=== PATIENT | male | born 1955 | race Caucasian/White ===

== ENCOUNTER 2022-06-24 10:26 | Emergency (ER) | payer MEDICARE, MEDICAID, SELFPAY ==
[2022-06-24 10:32] VITALS: BP 169/95; PULSE 104; RESP 18; BMI 23.3
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
[2022-06-24] MEDS: risperiDONE 1 MG TABLET PO ×2 (11:24→12:18)
[2022-06-24] MEDS: hydrOXYzine HCL 50 MG TABLET PO (11:25)
== END 2022-06-24 15:07 | disposition home or self-care (01) ==
PROVIDERS: Emergency Provider Emergency Medicine; PCP Internal Medicine
DX: S09.90XA Unspecified injury of head, initial encounter (principal); R51.9 Headache, unspecified; W01.0XXA Fall on same level from slipping, tripping and stumbling without subsequent striking against object, initial encounter; Y93.9 Activity, unspecified; Y92.9 Unspecified place or not applicable; Y99.9 Unspecified external cause status; Z79.899 Other long term (current) drug therapy
CPT/HCPCS: 99282; 99283

== ENCOUNTER 2022-10-17 16:16 | Emergency (ER) | payer MEDICARE, MEDICAID, SELFPAY ==
[2022-10-17 16:22] VITALS: PULSE 136; PULSE 98; RESP 16; O2SAT 98; BMI 22.0
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
--- NOTE | 2022-10-17 16:32 | PC.NURSE ---
pt unable to tolerate blood pressure cuff or temperature probe at this time.
== END 2022-10-17 16:53 | disposition home or self-care (01) ==
LOC: HO.ED 16:40
PROVIDERS: Emergency Provider Emergency Medicine
DX: Z04.1 Encounter for examination and observation following transport accident (principal)
CPT/HCPCS: 99282

== ENCOUNTER 2023-02-26 12:00 | Inpatient (IN) | payer MEDICARE, MEDICAID, SELFPAY ==
--- NOTE | ~2023-02-26 | CT_ITS ---
EXAMINATION: CT HEAD WITHOUT CONTRAST CT CERVICAL SPINE WITHOUT CONTRAST CLINICAL INFORMATION: Fall with headache and neck pain, weakness COMPARISON: None. TECHNIQUE: Contiguous axial imaging was performed from the skull base to vertex without intravenous administration of contrast. In addition, helical noncontrast CT imaging was acquired through the cervical spine and source images were reviewed along with axial reconstructions and sagittal and coronal MPRs. All CT exams at this location are performed using dose optimization techniques as appropriate to a performed exam including at least one of the following: * Automated exposure control * Adjustment of the mA and/or kV according to patient size (this includes techniques or standardized protocols for targeted exams where dose is matched to indication / reason for exam; i/e/ extremities or head) * Use of iterative reconstructive technique DLP: 1582 mGy-cm FINDINGS: HEAD: Motion artifact is present No intracranial mass, hemorrhage, or midline shift is visualized. Periventricular and subcortical white matter changes seen consistent chronic microvascular ischemic disease. Generalized atrophy is seen. Ventricles are prominent in size due to underlying atrophy. No extra-axial collections are identified. There is opacification of the right maxillary sinus CERVICAL SPINE: There is no evidence of acute cervical spine fracture. Vertebral body height and alignment is well maintained. No pre- or paravertebral soft tissue abnormality is identified. There is reversal of the normal cervical lordosis. Extensive bridging anterior osteophyte formation is seen extending from C3 through T1. Posterior facet joint arthropathy is seen right greater than left from C2 through C4. Limited assessment of the lung apices is unremarkable. CT/CT cervical spine wo IV con IMPRESSION: 1. No acute intracranial pathology. Chronic microvascular ischemic changes and atrophy 2. No CT evidence of acute cervical spine fracture or traumatic subluxation. Extensive anterior bridging osteophyte formation causing reversal the normal cervical lordosis. Posterior facet joint arthropathy, right greater than left
--- NOTE | ~2023-02-26 | XR_ITS ---
EXAMINATION: XR HIP, LEFT CLINICAL INFORMATION: Left hip fracture COMPARISON: CT abdomen pelvis earlier the same day TECHNIQUE: Two views of the left hip. FINDINGS: Again seen is a subcapital fracture involving the left femur with superior subluxation of the distal fracture fragment along with varus angulation. No other fractures are seen. XR/XR hip LT w PEL1V IMPRESSION: Subcapital left femoral fracture as described above.
--- NOTE | ~2023-02-26 | XR_ITS ---
EXAMINATION: XR PELVIS CLINICAL INFORMATION: Status post left hip arthroplasty COMPARISON: X-ray 03/08/2023 TECHNIQUE: AP view of the pelvis. FINDINGS: Left hip arthroplasty in usual position and alignment. Skin alessandro present. Air in the soft tissue/joint. No acute periprosthetic fracture. Normal right hip joint articulation. XR/XR pelvis 1-2V IMPRESSION: Postsurgical changes status post left hip arthroplasty.
--- NOTE | ~2023-02-26 | XR_ITS ---
EXAMINATION: LEFT FOOT AND LEFT ANKLE CLINICAL INFORMATION: Fall. Question ankle fracture. COMPARISON: None. TECHNIQUE: 4 view left foot and two-view left ankle FINDINGS: Left foot: There is osteopenia visualized bones. No acute fracture or dislocation is evident. There is a 1 mm bony density adjacent to the medial cuneiform without associated soft tissue swelling likely representing cysts sequela of previous injury. There is prominent spurring seen about the navicular cuneiform joint medially. Left ankle: There is no evidence of acute fracture or dislocation of the left ankle. Left ankle mortise appears intact. There is soft tissue swelling seen about the medial aspect of the ankle and foot. XR/XR ankle LT min 3V IMPRESSION: No evidence of acute fracture or dislocation of the left foot or ankle. Soft tissue swelling with degenerative change as described.
--- NOTE | ~2023-02-26 | XR_ITS ---
EXAMINATION: LEFT FOOT AND LEFT ANKLE CLINICAL INFORMATION: Fall. Question ankle fracture. COMPARISON: None. TECHNIQUE: 4 view left foot and two-view left ankle FINDINGS: Left foot: There is osteopenia visualized bones. No acute fracture or dislocation is evident. There is a 1 mm bony density adjacent to the medial cuneiform without associated soft tissue swelling likely representing cysts sequela of previous injury. There is prominent spurring seen about the navicular cuneiform joint medially. Left ankle: There is no evidence of acute fracture or dislocation of the left ankle. Left ankle mortise appears intact. There is soft tissue swelling seen about the medial aspect of the ankle and foot. XR/XR foot LT 2V IMPRESSION: No evidence of acute fracture or dislocation of the left foot or ankle. Soft tissue swelling with degenerative change as described.
--- NOTE | ~2023-02-26 | XR_ITS ---
EXAMINATION: XR CHEST CLINICAL INFORMATION: Tachycardia. COMPARISON: Chest radiograph dated 10/14/2014. TECHNIQUE: Frontal view of the chest was obtained. FINDINGS: Low lung volumes limit evaluation. No significant abnormality is noted involving the heart, lungs, mediastinum, bony thorax or soft tissues. XR/XR chest 1V IMPRESSION: No acute cardiopulmonary process.
--- NOTE | ~2023-02-26 | CT_ITS ---
EXAMINATION: CT PELVIS WITHOUT CONTRAST CLINICAL INFORMATION: Fall. Not standing. Nonverbal COMPARISON: None available. TECHNIQUE: Helical scanning was performed with submillimeter collimation through the pelvis. Soft tissue and bony algorithms evaluated. Sagittal and coronal multiplanar 2-D reconstructions were obtained. This CT examination was performed using dose optimization techniques as appropriate, variously including the following: *Automated exposure control *Adjustment of mA and/or kV according to patient size (this includes techniques or standardized protocols for targeted exams where dose is matched to indication/reason for exam; i.e. extremities or head) *Use of iterative reconstruction technique DLP: 317 mGy-cm FINDINGS: PELVIS: Bladder is decompressed. No colonic wall thickening or pericolonic inflammatory change. No significant free fluid or free air. No bulky adenopathy OSSEOUS STRUCTURES: Superiorly impacted apex anterior angulation of a left femoral neck fracture is seen. The left femoral head is still well seated within the acetabulum despite the superior impaction of the femoral neck fracture line. Mild degenerative changes seen within both hips. No additional acute bony abnormality within the pelvis. Degenerative changes in the visualized lower lumbar spine with prominent anterior osteophyte formation CT/CT bony pelvis IMPRESSION: Left femoral neck fracture with superior impaction and apex anterior angulation. The left femoral head is still well seated within the acetabulum despite the superior impaction of the femoral neck fracture line.
[2023-02-26 12:25] VITALS: BP 137/76; PULSE 114; RESP 18; TEMP 37; O2SAT 97
--- NOTE | 2023-02-26 12:29 | ED.GENADULT ---
HPI - General Adult General Chief complaint: Extremity Injury, Lower Stated complaint: Fall/L foot pain Time Seen by Provider: 02/26/23 13:15 Source: other (half-way staff) Mode of arrival: wheelchair Limitations: physical limitation History of Present Illness HPI narrative: Patient is a 67-year-old male with history of microcephaly, epilepsy, HTN, HLD, OCD, and atypical autism presenting to ED with half-way staff for suspected left ankle injury. Patient is nonverbal at baseline. Had been limping since Monday, circuit designer reports that he had outpatient x-rays done through PCP on Monday but have not received results yet. Then patient had a witnessed fall yesterday while skipping, report states it appears as though ankle gave out. Staff in written report denied patient hitting head or losing consciousness. Staff with patient in the ED reports that when she went to medicate patient this morning he had urinated on himself. She states this is not his typical behavior, that he is ambulatory independently at baseline. She also reports that she and other staff had difficulty getting the patient into the bathroom to clean up. He refused to stand and appeared to be in pain. MD complaint: left leg pain Onset (ago): hour(s) Location: lower extremity Pain Consistency: constant Exacerbating factors: movement Treatments prior to arrival: other (Tylenol) Related Data Home Medications Medication Instructions Recorded Confirmed acetaminophen 325 mg tablet 650 mg PO Q4H PRN Pain 02/26/23 02/26/23 amlodipine 10 mg tablet 10 mg PO DAILY 02/26/23 02/26/23 bacitracin zinc 500 unit-polymyxin 1 appl topical Q12H PRN skin 02/26/23 02/26/23 B 10,000 unit/gram topical breakdown ointment (Polysporin) benzonatate 100 mg capsule 100 mg PO TID PRN Cough 02/26/23 02/26/23 bisacodyl 10 mg rectal suppository 10 mg NM DAILY PRN Constipation 02/26/23 02/26/23 calcium carbonate 200 mg calcium 500 mg PO TID 02/26/23 02/26/23 (500 mg) chewable tablet (Antacid (calcium carbonate)) carbamide peroxide 6.5 % ear drops See Rx Instructions .Route .COMPLEX 02/26/23 02/26/23 (Ear Drops (carbamide peroxide)) cetirizine 10 mg tablet 10 mg PO DAILY 02/26/23 02/26/23 citalopram 10 mg tablet 10 mg PO DAILY 02/26/23 02/26/23 docusate sodium 100 mg capsule 100 mg PO BID 02/26/23 02/26/23 fluoride (sodium) 1.1 % dental gel 1 appl PO BEDTIME 02/26/23 02/26/23 hydroxyzine pamoate 25 mg capsule 25 mg PO DAILY PRN Anxiety 02/26/23 02/26/23 magnesium hydroxide 400 mg/5 mL 30 ml PO BEDTIME PRN Constipation 02/26/23 02/26/23 oral suspension (Milk of Magnesia) multivitamin with folic acid 400 1 tab PO DAILY 02/26/23 02/26/23 mcg tablet (Thera) pravastatin 40 mg tablet 40 mg PO BEDTIME 02/26/23 02/26/23 pseudoephedrine HCl 30 mg tablet 30 mg PO Q6H PRN Allergy Symptoms 02/26/23 02/26/23 (Suphedrin) risperidone 0.5 mg tablet 0.5 mg PO DAILY PRN Anxiety 02/26/23 02/26/23 risperidone 1 mg tablet 1 mg PO BID 02/26/23 02/26/23 sennosides 8.6 mg tablet (senna) 8.6 mg PO BEDTIME PRN Constipation 02/26/23 02/26/23 sodium chloride 0.65 % nasal spray 1 spray intranasal BID PRN dryness 02/26/23 02/26/23 aerosol (Saline Nasal) tolnaftate 1 % topical spray 2 spray topical BID PRN groin rash 02/26/23 02/26/23 powder (Tinactin) Allergies Allergy/AdvReac Type Severity Reaction Status Date / Time Benzodiazepines Allergy Unknown UNKNOWN Verified 02/26/23 12:25 [BENZODIAZEPINES] Cephalosporins Allergy Unknown UNKNOWN Verified 02/26/23 12:25 [CEPHALOSPORINS] Penicillins [PENICILLINS] Allergy Unknown UNKNOWN Verified 02/26/23 12:25 Review of Systems Review of Systems: As per HPI. Yes all other systems are reviewed and are negative PMFSH Past Medical History Medical History Autistic disorder Cataract Constipation Epilepsy Hyperlipemia Hypertension Impulse control disease Microencephaly OCD (obsessive compulsive disorder) Talipes equinus Vitamin D deficiency Social History Social History Unable to assess alcohol history related to: Unable to respond Patient Tobacco Use Status: Tobacco use Unknown Substance Use Type: Unknown Currently Displaying Signs/Symptoms of Drug Intoxication Withdrawal: No Advance Directives: No Advance Directives Information Provided: No Advance Directives on File: No (will contact the half-way for the info Profile Grinder Technician Gutierrez [id number]) Nutrition Risks: No Nutritional Risk Poor oral hygiene: No service: No Current occupational status: disabled Physical Exam ED Vital Signs: Vital Signs - 24 hr 02/26/23 12:25 02/26/23 14:12 Temperature 98.6 F 98.4 F Pulse Rate 114 H 107 H Respiratory Rate 18 18 Blood Pressure 137/76 140/88 H Pulse Oximetry 97 Oxygen Delivery Method Room Air Room Air BMI result Body Mass Index 0.0 Vital signs have been reviewed and appear to be correct. Blood pressure normal. Heart rate elevated. Respiratory rate normal. Temperature normal. Oxygen saturation normal. Const General: cooperative, no acute distress, alert and awake Nutritional Appearance: average body habitus Limitations: physical limitations [facility] Head: Yes normal to inspection, Yes atraumatic, No Beck's sign, No raccoon eyes, No scalp tenderness and No periorbital ecchymosis Ears: external ears normal and TM's normal bilaterally General nose exam: Normal external nose present and Normal septum present Face and sinus: Yes normal facial exam and Yes face symmetric Mouth: Normal oral and palatal mucosa present, oropharynx normal and moist mucous membranes Throat: Yes posterior oropharynx normal and Yes uvula midline Eyes Pupils: Equal, round and reactive pupils present Neck Neck: Yes normal visual inspection, Yes full ROM and Yes supple Chest Chest palpation & inspection: normal inspection of the chest and normal palpation of entire chest wall Resp Effort & Inspection: normal respiratory effort Auscultation: clear to auscultation bilaterally Cardio Rate: tachycardic Rhythm: regular rhythm Heart sounds: S1 normal heart sound present and S2 normal heart sound present GI Inspection: Yes normal to inspection Palpation (GI): Soft to palpation and nontender Auscultation: normal bowel sounds Back/Spine/Pelvis Cervical Spine: No Cervical spine tenderness and No step off deformity Thoracic/Lumbar Spine: No thoracic spinal tenderness and No lumbar spinal tenderness Pelvis: no pain with anterior-posterior compression and no pain with lateral compression Skin General skin exam: no rashes or lesions noted, no ecchymosis and no erythema Neuro General: moves all extremities and Unable to assess gait Cranial nerves: Yes Equal, round and reactive pupils present Cognition (Neuro): abnormal cognition Gait exam (Neuro): Unable to assess gait Extrem Right upper extremity: normal to inspection, full ROM and normal capillary refill Left upper extremity: normal to inspection, full ROM and normal capillary refill Right lower extremity: normal to inspection and full ROM Left lower extremity: normal to inspection, hip/thigh Details: normal to inspection and abnormal ROM Details: pain with passive ROM Details: with extension and with flexion; no tenderness, no swelling, no ecchymosis and no deformity, ankle Details: normal to inspection and normal ROM; no tenderness, no swelling and no ecchymosis and foot Details: normal capillary refill, normal to inspection, toes with normal ROM and vascular exam Details: dorsalis pedis pulse present and posterior tibial pulse present; no tenderness and no ecchymosis Course Course Course Narrative: RME: 67 yold male presents to the ED for left ankle and foot pain after falling yesterday. Aide states there was no head trauma. Xray ordered 14:18 FINDINGS: Left foot: There is osteopenia visualized bones. No acute fracture or dislocation is evident. There is a 1 mm bony density adjacent to the medial cuneiform without associated soft tissue swelling likely representing cysts sequela of previous injury. There is prominent spurring seen about the navicular cuneiform joint medially. Left ankle: There is no evidence of acute fracture or dislocation of the left ankle. Left ankle mortise appears intact. There is soft tissue swelling seen about the medial aspect of the ankle and foot. XR/XR ankle LT min 3V IMPRESSION: No evidence of acute fracture or dislocation of the left foot or ankle. ? Soft tissue swelling with degenerative change as described. Awaiting hip/pelvis 14:40 Per electrical technician instructor, unable to obtain imaging due to patient contracted which is not his baseline. Discussed patient with Dr. Hopper, will medicate patient with benadryl and flexeril and change imaging to CT for full evaluation of possible injuries, add CT head and neck. 16:05 Notified by Miguel Angel from CT patient still unable to complete exams after medication. Will medicate with IM haldol and morphine and reattempt as imaging is necessary to rule out life threatening conditions. 18:03 FINDINGS: HEAD: Motion artifact is present No intracranial mass, hemorrhage, or midline shift is visualized. Periventricular and subcortical white matter changes seen consistent chronic microvascular ischemic disease. Generalized atrophy is seen. Ventricles are prominent in size due to underlying atrophy. No extra-axial collections are identified.? There is opacification of the right maxillary sinus CERVICAL SPINE: There is no evidence of acute cervical spine fracture. Vertebral body height and alignment is well maintained.? No pre- or paravertebral soft tissue abnormality is identified.? There is reversal of the normal cervical lordosis. Extensive bridging anterior osteophyte formation is seen extending from C3 through T1. Posterior facet joint arthropathy is seen right greater than left from C2 through C4. Limited assessment of the lung apices is unremarkable. CT/CT head/brain wo IV con IMPRESSION: 1. No acute intracranial pathology. Chronic microvascular ischemic changes and atrophy 2. No CT evidence of acute cervical spine fracture or traumatic subluxation. Extensive anterior bridging osteophyte formation causing reversal the normal cervical lordosis. Posterior facet joint arthropathy, right greater than left FINDINGS: PELVIS: Bladder is decompressed. No colonic wall thickening or pericolonic inflammatory change. No significant free fluid or free air. No bulky adenopathy? OSSEOUS STRUCTURES: Superiorly impacted apex anterior angulation of a left femoral neck fracture is seen. The left femoral head is still well seated within the acetabulum despite the superior impaction of the femoral neck fracture line. Mild degenerative changes seen within both hips. No additional acute bony abnormality within the pelvis. Degenerative changes in the visualized lower lumbar spine with prominent anterior osteophyte formation CT/CT bony pelvis IMPRESSION: Left femoral neck fracture with superior impaction and apex anterior angulation. The left femoral head is still well seated within the acetabulum despite the superior impaction of the femoral neck fracture line. ? 18:17 Spoke to rigo Lindo. She recommends hip/pelvis x-ray, admit to medicine, NPO after midnight. Herrick text to Dr. Blake who accepted admission. Medications Administered Generic Name Dose Route Start Last Admin Trade Name Freq PRN Reason Stop Dose Admin Amlodipine Besylate 10 mg 02/27/23 09:00 02/27/23 08:55 Amlodipine Besylate 10 Mg Tablet PO 10 mg DAILY RUPINDER Administration Protocol Carbamide Peroxide 5 drop 02/27/23 09:00 02/27/23 10:31 Carbamide Peroxide 6.5% Otic 15 Ml Drpbtl EAR-BOTH 03/03/23 21:01 5 drop BID RUPINDER Administration Docusate Sodium 100 mg 02/26/23 22:15 02/27/23 10:39 Docusate Sodium 100 Mg Capsule PO Not Given BID RUPINDER Escitalopram Oxalate 5 mg 02/27/23 09:00 02/27/23 08:55 Escitalopram Oxalate 5 Mg Tablet PO 5 mg DAILY RUPINDER Administration Loratadine 10 mg 02/27/23 09:00 02/27/23 08:55 Loratadine 10 Mg Tablet PO 10 mg DAILY RUPINDER Administration Morphine Sulfate 4 mg 02/26/23 20:51 02/27/23 14:19 Morphine Sulfate 4 Mg/Ml Cartridge IVPUSH 4 mg Q4H PRN Administration Pain, Severe (Pain Scale 7-10) Protocol Multivitamins/Vitamin C 1 tab 02/27/23 09:00 02/27/23 09:03 Multivitamin Tablet PO 1 tab DAILY RUPINDER Administration Pravastatin Sodium 40 mg 02/26/23 22:15 02/27/23 10:39 Pravastatin Sodium 40 Mg Tablet PO Not Given BEDTIME RUPINDER Risperidone 1 mg 02/26/23 22:15 02/27/23 10:39 Risperidone 1 Mg Tablet PO Not Given BID RUPINDER Sodium Chloride 3 ml 02/27/23 00:00 02/27/23 10:39 0.9 % Sodium Chloride Flush 3 Ml Syringe IVFLUSH Not Given QSHIFT RUPINDER Discontinued Medications Generic Name Dose Route Start Last Admin Trade Name Tera PRN Reason Stop Dose Admin Cyclobenzaprine HCl 10 mg 02/26/23 14:46 02/26/23 15:18 Cyclobenzaprine Hcl 10 Mg Tablet PO 02/26/23 14:47 10 mg ONCE ONE Administration Diphenhydramine HCl 25 mg 02/26/23 14:46 02/26/23 15:18 Diphenhydramine Hcl 25 Mg Capsule PO 02/26/23 14:47 25 mg ONCE ONE Administration Haloperidol 5 mg 02/26/23 16:12 02/26/23 16:16 Haloperidol 5 Mg Tablet PO 02/26/23 16:13 5 mg ONCE ONE Administration Haloperidol Lactate 5 mg 02/26/23 16:04 02/26/23 16:20 Haloperidol Lactate 5 Mg/Ml Vial IM 02/26/23 16:05 Not Given ONCE ONE Morphine Sulfate 4 mg 02/26/23 16:04 02/26/23 16:20 Morphine Sulfate 4 Mg/Ml Cartridge IM 02/26/23 16:05 Not Given ONCE ONE Protocol Oxycodone HCl 5 mg 02/26/23 16:12 02/26/23 16:16 Oxycodone Hcl Immed Release 5 Mg Tablet PO 02/26/23 16:13 5 mg ONCE ONE Administration Medical Decision Making Medical Decision Making [facility] Narrative: Patient is a 67-year-old male with history of microcephaly, epilepsy, HTN, HLD, OCD, and atypical autism presenting to ED with half-way staff for suspected left ankle injury. On exam patient is awake, alert, nonverbal, cooperative with exam, head atraumatic, no wincing with palpation of spine, wincing with passive flexion and extension from left hip, no tenderness to palpation any other areas of extremities, ABD SNT Concern for fracture, sprain, contusion. X-rays of left ankle and foot ordered in triage, will also obtain left hip with pelvis. No indication for imaging of head/neck. Differential Diagnosis Differential Diagnoses: The differential diagnosis associated with the presentation includes As above. Lab Data 02/27/23 07:12 02/27/23 07:12 Independent Interpretation I performed an independent interpretation of an: Plain X-Ray Interpretation: I independently reviewed the x-rays and agree with the radiologist's interpretation. Radiology Impression Discussion of test interpretation with radiology: I have reviewed the radiologist's reading. Independent Historian Clinical information obtained from an independent historian. History obtained from or confirmed by: Other (half-way staff, health history binder) External Record Review External record reviewed: Inpatient record, Office record and Outpatient record Chronic Conditions Patient?s care impacted by: Other Discharge Plan Discharge Clinical Impression: Microcephaly Fracture of head of left femur Qualifiers: Encounter type: initial encounter Fracture type: closed Qualified Code(s): S72.052A - Unspecified fracture of head of left femur, initial encounter for closed fracture Patient Disposition: Admitted As Inpatient Interventions: Admission Worksheet (ED) Last Done: 02/27/23 03:47 Discharge Date/Time: 02/27/23 03:41
[2023-02-26 14:12] VITALS: BP 140/88; PULSE 107; RESP 18; TEMP 36.9
[2023-02-26] MEDS: Cyclobenzaprine HCl 10 MG TABLET PO (15:18)
[2023-02-26] MEDS: diphenhydrAMINE HCL 25 MG CAPSULE PO (15:18)
[2023-02-26] MEDS: HaloperidoL 5 MG TABLET PO (16:16)
[2023-02-26] MEDS: oxyCODONE HCl Immed Release 5 MG TABLET PO (16:16)
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
--- NOTE | 2023-02-26 18:49 | PHA.MEDREC ---
Pharmacy Consult ? Medication Reconciliation Pharmacy has completed the medication reconciliation. Patient had a list from [place] [facility].
--- NOTE | 2023-02-26 20:34 | PM.IMHP ---
History of Present Illness Date of Service: 02/26/23 Attending physician on admission: Renae Marquez Chief Complaint: Left leg pain after fall Pt is a 67-year-old female with a PMH significant for microcephaly, epilepsy, HTN, HLD, atypical autism and OCD who presents to the ED from a senior care for evaluation left leg pain. Patient is nonverbal at baseline and HPI provided a caregiver who is at bedside. Patient apparently had a witnessed fall yesterday. Patient was apparently skipping when it appeared that his ankle ?gave out?. Patient fell to the ground on his left side but staff deny LOC or head strike. Patient was seen limping after his fall and staff thought he had twisted his ankle. His PCP ordered outpatient x-rays to be taken, but results have not yet come back. Patient is normally toilet himself but in the morning staff noted he was incontinent of urine, refused to sit up or walk to the bathroom to get cleaned. Staff then brought patient to the ED due to continued leg pain and inability to ambulate. Patient ate and drank a little at breakfast this morning, but has since refused both p.o. solids and liquids. His diet is normally mechanically ground with thin liquids. In the ED patient was afebrile but tachycardic up to 114. Labs were significant for leukocytosis of 13.9, otherwise unremarkable.. Left foot and ankle x-ray show no evidence of acute fracture or dislocation of the left foot or ankle. CT of head shows no acute intracranial pathology and CT of cervical spine showed no evidence of acute cervical spine fracture or traumatic subluxation. Is CT of hip showed left femoral neck fracture with superior impaction and apex anterior angulation. Pt was treated with diphenhydramine, cyclobenzaprine, Haldol, oxycodone. Pt will be admitted to the hospital for treatment of left hip fracture with likely surgical procedure by Orthopedics tomorrow. Review of Systems Review of Systems: Unable to obtain due to patient's mentation [facility] [place] Medical History Autistic disorder Cataract Constipation Epilepsy Hyperlipemia Hypertension Impulse control disease Microencephaly OCD (obsessive compulsive disorder) Talipes equinus Vitamin D deficiency Social History Advance Directives: Yes Advance Directives Information Provided: Yes Advance Directives on File: No Meds Allergies Allergy/AdvReac Type Severity Reaction Status Date / Time Benzodiazepines Allergy Unknown UNKNOWN Verified 02/26/23 12:25 [BENZODIAZEPINES] Cephalosporins Allergy Unknown UNKNOWN Verified 02/26/23 12:25 [CEPHALOSPORINS] Penicillins [PENICILLINS] Allergy Unknown UNKNOWN Verified 02/26/23 12:25 Active Medications: Current Medications Pharmacy Consult (Consult Rx Perform Med Rec) 1 each MISCELLANE ONCE PRN PRN Reason: Consult order Home Medications Medication Instructions Recorded Confirmed Last Taken Type acetaminophen 325 mg tablet 650 mg PO Q4H PRN Pain 02/26/23 02/26/23 Unknown History amlodipine 10 mg tablet 10 mg PO DAILY 02/26/23 02/26/23 Unknown History bacitracin zinc 500 unit-polymyxin 1 appl topical Q12H PRN skin 02/26/23 02/26/23 Unknown History B 10,000 unit/gram topical breakdown ointment (Polysporin) benzonatate 100 mg capsule 100 mg PO TID PRN Cough 02/26/23 02/26/23 Unknown History bisacodyl 10 mg rectal suppository 10 mg AK DAILY PRN Constipation 02/26/23 02/26/23 Unknown History calcium carbonate 200 mg calcium 500 mg PO TID 02/26/23 02/26/23 Unknown History (500 mg) chewable tablet (Antacid (calcium carbonate)) carbamide peroxide 6.5 % ear drops See Rx Instructions .Route .COMPLEX 02/26/23 02/26/23 Unknown History (Ear Drops (carbamide peroxide)) cetirizine 10 mg tablet 10 mg PO DAILY 02/26/23 02/26/23 Unknown History citalopram 10 mg tablet 10 mg PO DAILY 02/26/23 02/26/23 Unknown History docusate sodium 100 mg capsule 100 mg PO BID 02/26/23 02/26/23 Unknown History fluoride (sodium) 1.1 % dental gel 1 appl PO BEDTIME 02/26/23 02/26/23 Unknown History hydroxyzine pamoate 25 mg capsule 25 mg PO DAILY PRN Anxiety 02/26/23 02/26/23 Unknown History magnesium hydroxide 400 mg/5 mL 30 ml PO BEDTIME PRN Constipation 02/26/23 02/26/23 Unknown History oral suspension (Milk of Magnesia) multivitamin with folic acid 400 1 tab PO DAILY 02/26/23 02/26/23 Unknown History mcg tablet (Thera) pravastatin 40 mg tablet 40 mg PO BEDTIME 02/26/23 02/26/23 Unknown History pseudoephedrine HCl 30 mg tablet 30 mg PO Q6H PRN Allergy Symptoms 02/26/23 02/26/23 Unknown History (Suphedrin) risperidone 0.5 mg tablet 0.5 mg PO DAILY PRN Anxiety 02/26/23 02/26/23 Unknown History risperidone 1 mg tablet 1 mg PO BID 02/26/23 02/26/23 Unknown History sennosides 8.6 mg tablet (senna) 8.6 mg PO BEDTIME PRN Constipation 02/26/23 02/26/23 Unknown History sodium chloride 0.65 % nasal spray 1 spray intranasal BID PRN dryness 02/26/23 02/26/23 Unknown History aerosol (Saline Nasal) tolnaftate 1 % topical spray 2 spray topical BID PRN groin rash 02/26/23 02/26/23 Unknown History powder (Tinactin) Physical Exam Vital Signs and Narrative: Vital Signs: Last Vital Signs Temp 98.4 F 02/26/23 14:12 Pulse 107 H 02/26/23 14:12 Resp 18 02/26/23 14:12 BP 140/88 H 02/26/23 14:12 Pulse Ox 97 02/26/23 12:25 O2 Del Method Room Air 02/26/23 14:12 BMI result Body Mass Index 0.0 Constitutional: Alert, uncomfortable looking, in no acute distress. Mental Status: Patient nonverbal at baseline. Eyes: Pupils are equal, round, and reactive to light. Ear, Nose, and Throat: Oropharynx clear, mucous membranes moist. Ears and nose without deformities. Trachea midline. Respiratory: Clear to auscultation bilaterally. No wheezing, rales, or rhonchi. Cardiovascular: S1, S2 regular. No murmurs, rubs, or gallops. Gastrointestinal: Abdomen soft, non-tender, non-distended. Normal bowel sounds. Skin: No rashes or lesions noted. Musculoskeletal: Patient not moving left leg. Left leg and hip tender to palpation. Patient moves all other extremities spontaneously Extremities: No edema. Psychiatric: Pleasantly confused, unable to speak or follow commands. Results Imaging Radiologist's Impressions: Impressions Ankle X-Ray 02/26/23 12:50 IMPRESSION: No evidence of acute fracture or dislocation of the left foot or ankle. Soft tissue swelling with degenerative change as described. Foot X-Ray 02/26/23 12:50 IMPRESSION: No evidence of acute fracture or dislocation of the left foot or ankle. Soft tissue swelling with degenerative change as described. Cervical Spine CT 02/26/23 17:13 IMPRESSION: 1. No acute intracranial pathology. Chronic microvascular ischemic changes and atrophy 2. No CT evidence of acute cervical spine fracture or traumatic subluxation. Extensive anterior bridging osteophyte formation causing reversal the normal cervical lordosis. Posterior facet joint arthropathy, right greater than left Head CT 02/26/23 17:13 IMPRESSION: 1. No acute intracranial pathology. Chronic microvascular ischemic changes and atrophy 2. No CT evidence of acute cervical spine fracture or traumatic subluxation. Extensive anterior bridging osteophyte formation causing reversal the normal cervical lordosis. Posterior facet joint arthropathy, right greater than left Pelvis CT 02/26/23 17:13 IMPRESSION: Left femoral neck fracture with superior impaction and apex anterior angulation. The left femoral head is still well seated within the acetabulum despite the superior impaction of the femoral neck fracture line. Hip/Pelvis X-Ray 02/26/23 18:55 IMPRESSION: Subcapital left femoral fracture as described above. Assessment and Plan (1) Microcephaly: Status: Acute (2) Fracture of head of left femur: Status: Acute Plan Pt is a 67-year-old female with a PMH significant for microcephaly, epilepsy, HTN, HLD, atypical autism and OCD who presents to the ED from a senior care for evaluation left leg pain. Patient is nonverbal at baseline and HPI provided a caregiver who is at bedside. Patient apparently had a witnessed fall yesterday. Pt will be admitted to the hospital for treatment of left hip fracture with likely surgical procedure by Orthopedics tomorrow. Left femoral neck fracture Pelvis CT showed left femoral neck fracture with superior impaction and apex anterior angulation Orthopedics consulted, plan surgery in the morning Patient will be made NPO after midnight Analgesics for pain management Pneumatic boots for DVT prophylaxis Patient typed and screened Leukocytosis Patient's WBC 13.9 Possibly secondary to hip fracture, bubble work up patient further for potential infection UA, CXR, lactic acid ordered Will follow results and treat accordingly Tachycardia Likely secondary to pain from hip fracture, not sepsis Analgesics for pain management Follow infection workup and treat accordingly HTN Continue home med HLD Continue meds Full Code Attending:?Dr. Marquez DVT Prophylaxis: Pneumatic boots Pt will require a hospitalization of at least two nights for treatment of? left hip fracture with likely surgical procedure by Orthopedics tomorrow. Time Spent With Patient Time: Total time managing care of this patient today ____ minutes. Quality Stroke Does the patient have a stroke diagnosis?: No VTE Prior VTE?: No VTE Risk Level:: Medical - moderate - high VTE Device Contraindication: N/A - Device Ordered VTE Drug Contraindication: Treatment Not Indicated
[2023-02-26 21:02] LABS: MANUAL DIFF FLAG NO
[2023-02-26 21:03] LABS: Basophils Percent Auto 0.1 % (0-2); Eosinophils Percent Auto 0.1 % (0-4); Hemoglobin 13.8 g/dl (14.0-18.0); Imm Gran Abs Auto 0.05 X10*3/uL (0.00-0.03); Imm Gran Pct Auto 0.4 % (0.0-0.4); Lymphocytes Absolute Auto 0.5 X10*3/uL (1.2-4.9); Lymphocytes Percent Auto 3.7 % (20-40); Mean Corpuscular HGB Conc 35.4 g/dl (31.0-36.0); Mean Corpuscular Hemoglobin 31.3 pg (27.0-33.0); Mean Corpuscular Volume 88.4 fL (80.0-98.0); Mean Platelet Volume 8.2 fL (9.4-12.4); Monocytes Percent Auto 6.8 % (2-11); Neutrophils Absolute Auto 12.4 x10*3/uL (2.0-8.3); Neutrophils Percent Auto 88.9 % (45-73); Platelet Count 369 X10*3/uL (160-400); Red Blood Count 4.41 X10*6/uL (4.60-5.80); Red Cell Distribution Width 12.6 % (11.0-16.0); White Blood Count 13.9 X10*3/uL (4.8-10.8)
[2023-02-26] MEDS: Morphine Sulfate 4 MG/ML CARTRIDGE IVPUSH (21:45)
[2023-02-26 21:55] LABS: Alanine Aminotransferase 43 U/L (0-40); Albumin Level 4.6 g/dL (3.5-5.0); Alkaline Phosphatase 101 U/L (39-117); Anion Gap 20 (12-20); Aspartate Amino Transferase 33 U/L (5-37); Bilirubin Total 0.6 mg/dL (0.0-1.0); Blood Urea Nitrogen 19 mg/dL (9-16); Calcium 9.7 mg/dL (8.4-10.2); Carbon Dioxide 26 mmol/L (22-29); Chloride 100 mmol/L (96-108); Estimated Glomerular Filt Rate > 60; Glucose Random 178 mg/dL (60-115); Potassium 3.8 mmol/L (3.3-5.1); Sodium 142 mmol/L (135-145); Total Protein 7.6 g/dL (6.5-8.0)
[2023-02-26 22:20] LABS: Lactic Acid 3.1 mmol/L (0.5-2.0)
[2023-02-26 23:57] LABS: Reflex Lactate? Lactic Acid Added
--- NOTE | 2023-02-27 | ECG_ITS ---
Test Reason : high hr Blood Pressure : / mmHG Vent. Rate : 138 BPM Atrial Rate : 138 BPM P-R Int : 150 ms QRS Dur : 066 ms QT Int : 262 ms P-R-T Axes : 053 001 062 degrees QTc Int : 396 ms Poor data quality, interpretation may be adversely affected Sinus tachycardia Possible Left atrial enlargement Minimal voltage criteria for LVH, may be normal variant ( R in aVL ) Nonspecific T wave abnormality Abnormal ECG No previous ECGs available Referred By: Jeanine Chun Electronically Signed By:Micky Paige
[2023-02-27 03:58] VITALS: BP 167/99; PULSE 139; RESP 18; TEMP 37.2; O2SAT 92
[2023-02-27 04:00] VITALS: BMI 24.8
--- NOTE | 2023-02-27 05:33 | PC.NURSE ---
Pt arrived to the tele floor at about 0400.Awake but non verbal. Not grimacing. Tolerated the transfer from stretcher to bed. half-way staff stayed with the pt. Pt is kept NPO. Settled in bed. Call mancilla with in reach. Bed alarm activated.
[2023-02-27 07:23] LABS: Hematocrit 41.7 % (42.0-52.0); Hemoglobin 14.4 g/dl (14.0-18.0); Mean Corpuscular HGB Conc 34.5 g/dl (31.0-36.0); Mean Corpuscular Hemoglobin 31.6 pg (27.0-33.0); Mean Corpuscular Volume 91.6 fL (80.0-98.0); Mean Platelet Volume 8.3 fL (9.4-12.4); Platelet Count 370 X10*3/uL (160-400); Red Blood Count 4.55 X10*6/uL (4.60-5.80); Red Cell Distribution Width 12.9 % (11.0-16.0); White Blood Count 13.7 X10*3/uL (4.8-10.8)
[2023-02-27 07:31] VITALS: BP 149/82; PULSE 121; RESP 18; TEMP 37; O2SAT 92
[2023-02-27 07:47] LABS: Anion Gap 17 (12-20); Blood Urea Nitrogen 24 mg/dL (9-16); Calcium 9.7 mg/dL (8.4-10.2); Carbon Dioxide 25 mmol/L (22-29); Chloride 102 mmol/L (96-108); Estimated Glomerular Filt Rate > 60; Glucose Random 157 mg/dL (60-115); Potassium 3.8 mmol/L (3.3-5.1); Sodium 140 mmol/L (135-145)
--- NOTE | 2023-02-27 08:35 | PM.CNOR ---
History of Present Illness HPI Consult date: 02/27/23 Chief complaint: Left hip fracture Review of Systems Review of Systems: Yes Unobtainable due to mental status [facility] Past Medical History Medical History Autistic disorder Cataract Constipation Epilepsy Hyperlipemia Hypertension Impulse control disease Microencephaly OCD (obsessive compulsive disorder) Talipes equinus Vitamin D deficiency Social History Social History Unable to assess alcohol history related to: Unable to respond Patient Tobacco Use Status: Tobacco use Unknown Substance Use Type: Unknown Advance Directives: No Advance Directives Information Provided: No Advance Directives on File: No (will contact the nursing home for the info [employer] Intern Gutierrez [phone]) Nutrition Risks: No Nutritional Risk Poor oral hygiene: No service: No Current occupational status: disabled Meds Allergies Allergy/AdvReac Type Severity Reaction Status Date / Time Benzodiazepines Allergy Unknown UNKNOWN Verified 02/26/23 12:25 [BENZODIAZEPINES] Cephalosporins Allergy Unknown UNKNOWN Verified 02/26/23 12:25 [CEPHALOSPORINS] Penicillins [PENICILLINS] Allergy Unknown UNKNOWN Verified 02/26/23 12:25 Active Medications: Current Medications Acetaminophen (Acetaminophen 325 Mg Tablet) 650 mg PO Q6H PRN PRN Reason: Pain, Mild (Pain Scale 1-3) Amlodipine Besylate (Amlodipine Besylate 10 Mg Tablet) 10 mg PO DAILY [facility]; Protocol Benzonatate (Benzonatate 100 Mg Capsule) 100 mg PO TID PRN PRN Reason: Cough Bisacodyl (Bisacodyl 10 Mg Supp.Rect) 10 mg MI DAILY PRN PRN Reason: Constipation Carbamide Peroxide (Carbamide Peroxide 6.5% Otic 15 Ml Drpbtl) 5 drop EAR-BOTH BID [facility] Stop: 03/03/23 21:01 Docusate Sodium (Docusate Sodium 100 Mg Capsule) 100 mg PO DAILY PRN PRN Reason: Constipation Docusate Sodium (Docusate Sodium 100 Mg Capsule) 100 mg PO BID [facility] Escitalopram Oxalate (Escitalopram Oxalate 5 Mg Tablet) 5 mg PO DAILY [facility] Hydroxyzine HCl (Hydroxyzine Hcl 25 Mg Tablet) 25 mg PO DAILY PRN PRN Reason: Anxiety Loratadine (Loratadine 10 Mg Tablet) 10 mg PO DAILY [facility] Magnesium Hydroxide (Milk Of Magnesia 30 Ml Oral.Susp) 30 ml PO BEDTIME PRN PRN Reason: Constipation Morphine Sulfate (Morphine Sulfate 4 Mg/Ml Cartridge) 4 mg IVPUSH Q4H PRN; Protocol PRN Reason: Pain, Severe (Pain Scale 7-10) Last Admin: 02/26/23 21:45 Dose: 4 mg Multivitamins/Vitamin C (Multivitamin Tablet) 1 tab PO DAILY [facility] Pharmacy Consult (Consult Rx Perform Med Rec) 1 each MISCELLANE ONCE PRN PRN Reason: Consult order Pravastatin Sodium (Pravastatin Sodium 40 Mg Tablet) 40 mg PO BEDTIME [facility] Pseudoephedrine HCl (Pseudoephedrine Hcl 30 Mg Tablet) 30 mg PO Q6H PRN PRN Reason: Allergy Symptoms Risperidone (Risperidone 1 Mg Tablet) 1 mg PO BID [facility] Risperidone (Risperidone 0.5 Mg Tablet) 0.5 mg PO DAILY PRN PRN Reason: Anxiety Senna (Sennosides 8.6 Mg Tablet) 8.6 mg PO BEDTIME PRN PRN Reason: Constipation Sodium Chloride (0.9 % Sodium Chloride Flush 3 Ml Syringe) 3 ml IVFLUSH QSHIFT [facility] Home Medications Medication Instructions Recorded Confirmed Last Taken Type acetaminophen 325 mg tablet 650 mg PO Q4H PRN Pain 02/26/23 02/26/23 Unknown History amlodipine 10 mg tablet 10 mg PO DAILY 02/26/23 02/26/23 Unknown History bacitracin zinc 500 unit-polymyxin 1 appl topical Q12H PRN skin 02/26/23 02/26/23 Unknown History B 10,000 unit/gram topical breakdown ointment (Polysporin) benzonatate 100 mg capsule 100 mg PO TID PRN Cough 02/26/23 02/26/23 Unknown History bisacodyl 10 mg rectal suppository 10 mg MI DAILY PRN Constipation 02/26/23 02/26/23 Unknown History calcium carbonate 200 mg calcium 500 mg PO TID 02/26/23 02/26/23 Unknown History (500 mg) chewable tablet (Antacid (calcium carbonate)) carbamide peroxide 6.5 % ear drops See Rx Instructions .Route .COMPLEX 02/26/23 02/26/23 Unknown History (Ear Drops (carbamide peroxide)) cetirizine 10 mg tablet 10 mg PO DAILY 02/26/23 02/26/23 Unknown History citalopram 10 mg tablet 10 mg PO DAILY 02/26/23 02/26/23 Unknown History docusate sodium 100 mg capsule 100 mg PO BID 02/26/23 02/26/23 Unknown History fluoride (sodium) 1.1 % dental gel 1 appl PO BEDTIME 02/26/23 02/26/23 Unknown History hydroxyzine pamoate 25 mg capsule 25 mg PO DAILY PRN Anxiety 02/26/23 02/26/23 Unknown History magnesium hydroxide 400 mg/5 mL 30 ml PO BEDTIME PRN Constipation 02/26/23 02/26/23 Unknown History oral suspension (Milk of Magnesia) multivitamin with folic acid 400 1 tab PO DAILY 02/26/23 02/26/23 Unknown History mcg tablet (Thera) pravastatin 40 mg tablet 40 mg PO BEDTIME 02/26/23 02/26/23 Unknown History pseudoephedrine HCl 30 mg tablet 30 mg PO Q6H PRN Allergy Symptoms 02/26/23 02/26/23 Unknown History (Suphedrin) risperidone 0.5 mg tablet 0.5 mg PO DAILY PRN Anxiety 02/26/23 02/26/23 Unknown History risperidone 1 mg tablet 1 mg PO BID 02/26/23 02/26/23 Unknown History sennosides 8.6 mg tablet (senna) 8.6 mg PO BEDTIME PRN Constipation 02/26/23 02/26/23 Unknown History sodium chloride 0.65 % nasal spray 1 spray intranasal BID PRN dryness 02/26/23 02/26/23 Unknown History aerosol (Saline Nasal) tolnaftate 1 % topical spray 2 spray topical BID PRN groin rash 02/26/23 02/26/23 Unknown History powder (Tinactin) Physical Exam Vital Signs: Vital Signs: Last Vital Signs Temp 98.6 F 02/27/23 07:31 Pulse 121 H 02/27/23 07:31 Resp 18 02/27/23 07:31 BP 149/82 H 02/27/23 07:31 Pulse Ox 92 02/27/23 07:31 O2 Del Method Room Air 02/27/23 07:31 BMI result Body Mass Index 24.8 Const: General: cooperative, healthy appearing and no acute distress Resp: Effort & Inspection: normal respiratory effort and able to speak in complete sentences Cardio: Rate: regular rate Peripheral pulses: Peripheral pulses 2+ throughout GI: Palpation (GI): Soft to palpation Skin: Lesions: no lesions Rashes: no rashes Extrem: Other: Left lower extremity is shortened and externally rotated. Able to dorsi/plantarflex. Unable to report if sensation is intact. Pedal pulse intact. Skin intact. Results Labs 02/27/23 07:12 02/27/23 07:12 Labs: Abnormal lab results 02/26/23 02/26/23 02/26/23 Range/Units 20:58 21:24 21:54 WBC 13.9 H (4.8-10.8) X10*3/uL RBC 4.41 L (4.60-5.80) X10*6/uL Hgb 13.8 L (14.0-18.0) g/dl Hct 39.0 L (42.0-52.0) % MPV 8.2 L (9.4-12.4) fL Neut % (Auto) 88.9 H (45-73) % Lymph % (Auto) 3.7 L (20-40) % Lymph # (Auto) 0.5 L (1.2-4.9) X10*3/uL Abs Immat Gran (auto) 0.05 H (0.00-0.03) X10*3/uL Absolute Neuts (auto) 12.4 H (2.0-8.3) x10*3/uL BUN 19 H (9-16) mg/dL Random Glucose 178 H (60-115) mg/dL Lactic Acid 3.1 H* (0.5-2.0) mmol/L ALT 43 H (0-40) U/L 02/27/23 02/27/23 Range/Units 07:12 07:12 WBC 13.7 H (4.8-10.8) X10*3/uL RBC 4.55 L (4.60-5.80) X10*6/uL Hgb (14.0-18.0) g/dl Hct 41.7 L (42.0-52.0) % MPV 8.3 L (9.4-12.4) fL Neut % (Auto) (45-73) % Lymph % (Auto) (20-40) % Lymph # (Auto) (1.2-4.9) X10*3/uL Abs Immat Gran (auto) (0.00-0.03) X10*3/uL Absolute Neuts (auto) (2.0-8.3) x10*3/uL BUN 24 H (9-16) mg/dL Random Glucose 157 H (60-115) mg/dL Lactic Acid (0.5-2.0) mmol/L ALT (0-40) U/L H & H 02/26/23 02/27/23 Range/Units 20:58 07:12 Hgb 13.8 L 14.4 (14.0-18.0) g/dl Hct 39.0 L 41.7 L (42.0-52.0) % All other labs normal. Assessment and Plan (1) Fracture of head of left femur: Qualifiers: Encounter type: initial encounter Fracture type: closed Qualified Code(s): S72.052A - Unspecified fracture of head of left femur, initial encounter for closed fracture Status: Acute I spoke with one of the staff members at the patients nursing home to determine the patients ambulatory status and ability to follow directions. Unfortunately, the patient is unable to follow directions due to his mental status. Therefore risks of surgery outweigh the benefits. Recommendation would be to avoid surgical intervention due to the risk of dislocation, infection and wound breakdown. Patient should remain nonweightbearing on the left lower extremity. Pain management as appropriate. Physical therapy/occupational therapy [facility] F/u outpatient for continued care (2) Microcephaly: Status: Acute Time Spent With Patient Time: Total time managing care of this patient today ____ minutes. Procedures Date of Service Date of Service: 02/27/23
[2023-02-27] MEDS: amLODIPine Besylate 10 MG TABLET PO (08:55)
[2023-02-27] MEDS: risperiDONE 1 MG TABLET PO ×2 (08:55→22:18)
[2023-02-27] MEDS: Docusate Sodium 100 MG CAPSULE PO ×2 (08:55→22:18)
[2023-02-27] MEDS: Escitalopram Oxalate 5 MG TABLET PO (08:55)
[2023-02-27] MEDS: Loratadine 10 MG TABLET PO (08:55)
[2023-02-27] MEDS: 0.9 % Sodium Chloride Flush 3 ML SYRINGE IVFLUSH ×2 (08:56→16:30)
[2023-02-27] MEDS: Multivitamin TABLET 1 TAB PO (09:03)
--- NOTE | 2023-02-27 09:34 | MHC.CM.PN ---
Addendum entered by Jazmyn Stauffer 02/27/23 13:40: skilled nursing nurse Treasure ([phone]) present in pts room, she can be contacted with updates in regards to pts D/C when medically cleared. Original Note: IMM 02/27/23. Pt admitted with left hip fracture. Pt non-verbal at baseline, has a guardian Liz Marie ([phone]). Pt resides in a correction in [place], [place], was independent with ambulation, no DME, had a nurse at the correction. D/C plan pending ortho/PT consults, but likely return to correction with services vs STR. BLS/[facility] to transport. Per guardian Liz, CHRISTIAN given verbally via telephone, she requested a copy be left in the pts room. PCP: Schuyler Monreal vax: [phone]
[2023-02-27] MEDS: Carbamide Peroxide 6.5% Otic 15 ML DRPBTL 5 DROP EAR-BOTH ×2 (10:31→22:18)
--- NOTE | 2023-02-27 12:09 | HO.PM.IMPN ---
Subjective Subjective Date of Service: 02/27/23 Review of Systems Follow up fall, hip fracture non verbal, from care home Physical Exam Vital Signs: Vital Signs: Last Vital Signs Temp 98.6 F 02/27/23 07:31 Pulse 121 H 02/27/23 07:31 Resp 18 02/27/23 07:31 BP 149/82 H 02/27/23 07:31 Pulse Ox 92 02/27/23 07:31 O2 Del Method Room Air 02/27/23 07:31 BMI result Body Mass Index 24.8 Appearing in no acute distress lung sounds are clear to auscultation heart regular rate rhythm, clear S1, S2 positive bowel sounds, abdomen is soft, nontender neuro patient is alert x3, no focal deficits Objective Data Active Medications Acetaminophen (Acetaminophen 325 Mg Tablet) 650 mg PO Q6H PRN PRN Reason: Pain, Mild (Pain Scale 1-3) Amlodipine Besylate (Amlodipine Besylate 10 Mg Tablet) 10 mg PO DAILY [facility]; Protocol Last Admin: 02/27/23 08:55 Dose: 10 mg Documented By: HARINDER Benzonatate (Benzonatate 100 Mg Capsule) 100 mg PO TID PRN PRN Reason: Cough Bisacodyl (Bisacodyl 10 Mg Supp.Rect) 10 mg SC DAILY PRN PRN Reason: Constipation Carbamide Peroxide (Carbamide Peroxide 6.5% Otic 15 Ml Drpbtl) 5 drop EAR-BOTH BID [facility] Stop: 03/03/23 21:01 Last Admin: 02/27/23 10:31 Dose: 5 drop Documented By: HARINDER Docusate Sodium (Docusate Sodium 100 Mg Capsule) 100 mg PO DAILY PRN PRN Reason: Constipation Docusate Sodium (Docusate Sodium 100 Mg Capsule) 100 mg PO BID [facility] Last Admin: 02/27/23 08:55 Dose: 100 mg Documented By: HARINDER Escitalopram Oxalate (Escitalopram Oxalate 5 Mg Tablet) 5 mg PO DAILY [facility] Last Admin: 02/27/23 08:55 Dose: 5 mg Documented By: HARINDER Hydroxyzine HCl (Hydroxyzine Hcl 25 Mg Tablet) 25 mg PO DAILY PRN PRN Reason: Anxiety Loratadine (Loratadine 10 Mg Tablet) 10 mg PO DAILY [facility] Last Admin: 02/27/23 08:55 Dose: 10 mg Documented By: HARINDER Magnesium Hydroxide (Milk Of Magnesia 30 Ml Oral.Susp) 30 ml PO BEDTIME PRN PRN Reason: Constipation Morphine Sulfate (Morphine Sulfate 4 Mg/Ml Cartridge) 4 mg IVPUSH Q4H PRN; Protocol PRN Reason: Pain, Severe (Pain Scale 7-10) Last Admin: 02/26/23 21:45 Dose: 4 mg Documented By: KRIS Multivitamins/Vitamin C (Multivitamin Tablet) 1 tab PO DAILY [facility] Last Admin: 02/27/23 09:03 Dose: 1 tab Documented By: HARINDER Pharmacy Consult (Consult Rx Perform Med Rec) 1 each MISCELLANE ONCE PRN PRN Reason: Consult order Pravastatin Sodium (Pravastatin Sodium 40 Mg Tablet) 40 mg PO BEDTIME [facility] Last Admin: 02/27/23 10:39 Dose: Not Given Documented By: HARINDER Non-Admin Reason: not done by previous shift Pseudoephedrine HCl (Pseudoephedrine Hcl 30 Mg Tablet) 30 mg PO Q6H PRN PRN Reason: Allergy Symptoms Risperidone (Risperidone 1 Mg Tablet) 1 mg PO BID [facility] Last Admin: 02/27/23 08:55 Dose: 1 mg Documented By: HARINDER Risperidone (Risperidone 0.5 Mg Tablet) 0.5 mg PO DAILY PRN PRN Reason: Anxiety Senna (Sennosides 8.6 Mg Tablet) 8.6 mg PO BEDTIME PRN PRN Reason: Constipation Sodium Chloride (0.9 % Sodium Chloride Flush 3 Ml Syringe) 3 ml IVFLUSH QSHIFT [facility] Last Admin: 02/27/23 08:56 Dose: 3 ml Documented By: HARINDER Labs 02/27/23 07:12 02/27/23 07:12 Labs: Laboratory Results - last 24 hr 02/26/23 02/26/23 02/26/23 20:58 21:23 21:24 MCV 88.4 MCH 31.3 MCHC 35.4 RDW 12.6 Plt Count 369 MPV 8.2 L Immature Gran % (Auto) 0.4 Neut % (Auto) 88.9 H Lymph % (Auto) 3.7 L Jennings % (Auto) 6.8 Eos % (Auto) 0.1 Baso % (Auto) 0.1 Lymph # (Auto) 0.5 L Jennings # (Auto) 1.0 Eos # (Auto) 0.0 Baso # (Auto) 0.0 Abs Immat Gran (auto) 0.05 H Absolute Neuts (auto) 12.4 H Absolute Nucleated RBC 0.000 Nucleated RBC % (auto) 0.0 Anion Gap 20 Estim Creat Clear Calc TNP Estimated GFR > 60 Random Glucose 178 H Lactic Acid Calcium 9.7 Total Bilirubin 0.6 AST 33 ALT 43 H Alkaline Phosphatase 101 Total Protein 7.6 Albumin 4.6 Blood Type O Negative Antibody Screen NEGATIVE 02/26/23 02/27/23 02/27/23 21:54 07:12 07:12 MCV 91.6 MCH 31.6 MCHC 34.5 RDW 12.9 Plt Count 370 MPV 8.3 L Immature Gran % (Auto) Neut % (Auto) Lymph % (Auto) Jennings % (Auto) Eos % (Auto) Baso % (Auto) Lymph # (Auto) Jennings # (Auto) Eos # (Auto) Baso # (Auto) Abs Immat Gran (auto) Absolute Neuts (auto) Absolute Nucleated RBC 0.000 Nucleated RBC % (auto) 0.0 Anion Gap 17 Estim Creat Clear Calc 67.0 Estimated GFR > 60 Random Glucose 157 H Lactic Acid 3.1 H* Calcium 9.7 Total Bilirubin AST ALT Alkaline Phosphatase Total Protein Albumin Blood Type Antibody Screen Assessment and Plan (1) Fracture of head of left femur: Status: Acute Plan Pt is a 67-year-old female with a PMH significant for microcephaly, epilepsy, HTN, HLD, atypical autism and OCD who presents to the ED from a care home for evaluation left leg pain.? Patient is nonverbal at baseline and HPI provided a caregiver who is at bedside.? Patient apparently had a witnessed fall yesterday. Pt will be admitted to the hospital for treatment of left hip fracture with likely surgical procedure by Orthopedics tomorrow. Left femoral neck fracture Pelvis CT?showed left femoral neck fracture with superior impaction and apex anterior angulation ,Analgesics for pain management Pneumatic boots for DVT prophylaxis Orthopedics consulted> Leukocytosis Possibly secondary to hip fracture, reactive UA pending, CXR neg for consolidation Tachycardia Likely secondary to pain from hip fracture, not sepsis Analgesics for pain management Follow infection workup and treat accordingly EKG with sinus tachy HTN Continue home med HLD Continue meds Full Code Attending:?Dr. Blake DVT Prophylaxis: Pneumatic boots continued hospital stay for treatment of? left hip fracture requiring physical therapy evaluation Time Spent With Patient Time: Total time managing care of this patient today ____ minutes. Quality Stroke Does the patient have a stroke diagnosis?: No VTE Prior VTE?: No VTE Risk Level:: Medical - moderate - high VTE Device Contraindication: N/A - Device Ordered VTE Drug Contraindication: Treatment Not Indicated
[2023-02-27] MEDS: Morphine Sulfate 4 MG/ML CARTRIDGE IVPUSH ×3 (14:19→22:28)
--- NOTE | 2023-02-27 15:47 | PC.NURSE ---
bladder scanned at 1515 got 643ml. straight cath at 1530 got 700ml. hospitalist notified. pt refused to eat or drink during lunch time. will cont to monitor
[2023-02-27 16:00] VITALS: BP 130/90; PULSE 125; RESP 14; TEMP 37.3; O2SAT 92
[2023-02-27 17:03] LABS: Appearance Urine Clear; Color Urine Dark Yellow; Glucose Urine UA Negative (Negative); Leukocyte Esterase Urine Negative (Negative); Nitrite Urine Negative (Negative); UMIC TRIGGER UACC YES; Urine Blood Negative (Negative); Urine Ketones Negative (Negative); Urine Protein 300 (3+) mg/dL (Neg-Trace)
[2023-02-27 17:12] LABS: Bacteria Urine None Seen (None Seen); RBC Urine 0-2 /HPF (0-2); Squamous Epithelial Cell Urine 0-2 /HPF (0-2); WBC Urine 0-5 /HPF (0-5)
[2023-02-27] MEDS: Acetaminophen 325 MG TABLET 650 MG PO (17:46)
[2023-02-27] MEDS: 0.9 % Sodium Chloride 1,000 ML 100 ML IVCONT (17:58)
[2023-02-27 19:47] VITALS: BP 132/86; PULSE 111; RESP 14; TEMP 36.7; O2SAT 92
[2023-02-27] MEDS: Pravastatin Sodium 40 MG TABLET PO (22:18)
[2023-02-28] VITALS (11 sets, daily range): BP systolic 131–156; BP diastolic 65–91; PULSE 84–119; RESP 12–20; TEMP 36.6–37.4; O2SAT 90–97
[2023-02-28] MEDS: 0.9 % Sodium Chloride 1,000 ML 100 ML IVCONT (03:36)
--- NOTE | 2023-02-28 04:50 | PC.NURSE ---
0430-bladder scan 143mls. IV fluids infusing as ordered. Will continue to monitor.
--- NOTE | 2023-02-28 07:56 | PM.HPOR ---
History of Present Illness History of Present Illness Date of Service: 02/28/23 Chief complaint: Left hip fracture Narrative: King Steen JR is a 67 year old male with a past medical history significant for microcephaly, epilepsy, HTN, HLD, atypical autism and OCD who presents to the ED [facility] a [facility] for evaluation left leg pain. Patientis nonverbal at baseline and therefor HPI was obtained from prior ED./Hospitalist notes. Patient apparently had a witnessed fall yesterday.? Patient was apparently skipping when it appeared that his ankle ?gave out?.? Patient fell to the ground on his left side but staff deny LOC or head strike.? Patient was seen limping after his fall and staff thought he had twisted his ankle.? His PCP ordered outpatient x-rays to be taken, but results have not yet come back.? Patient is normally toilet himself but in the morning staff noted he was incontinent of urine, refused to sit up or walk to the bathroom to get cleaned.? Staff then brought patient to the ED due to continued leg pain and inability to ambulate.? Patient ate and drank a little at breakfast this morning, but has since refused both p.o. solids and liquids.? X-rays and CT obtained in the ED were significant for a femoral neck fracture of the left hip. The patient was admitted to the medicine service with orthopedic consult for further evaluation and treatment. [facility] Past Medical History Medical History Autistic disorder Cataract Constipation Epilepsy Hyperlipemia Hypertension Impulse control disease Microencephaly OCD (obsessive compulsive disorder) Talipes equinus Vitamin D deficiency Social History Social History Unable to assess alcohol history related to: Unable to respond Patient Tobacco Use Status: Tobacco use Unknown Substance Use Type: Unknown Currently Displaying Signs/Symptoms of Drug Intoxication Withdrawal: No Advance Directives: No Advance Directives Information Provided: No Advance Directives on File: No (will contact the [facility] for the info [employer] Gutierrez [id number]) Nutrition Risks: No Nutritional Risk Poor oral hygiene: No service: No Current occupational status: disabled Meds Allergies Allergy/AdvReac Type Severity Reaction Status Date / Time Benzodiazepines Allergy Unknown UNKNOWN Verified 02/26/23 12:25 [BENZODIAZEPINES] Cephalosporins Allergy Unknown UNKNOWN Verified 02/26/23 12:25 [CEPHALOSPORINS] Penicillins [PENICILLINS] Allergy Unknown UNKNOWN Verified 02/26/23 12:25 Active Medications: Current Medications Acetaminophen (Acetaminophen 325 Mg Tablet) 650 mg PO Q6H PRN PRN Reason: Pain, Mild (Pain Scale 1-3) Last Admin: 02/27/23 17:46 Dose: 650 mg Amlodipine Besylate (Amlodipine Besylate 10 Mg Tablet) 10 mg PO DAILY [facility]; Protocol Last Admin: 02/27/23 08:55 Dose: 10 mg Benzonatate (Benzonatate 100 Mg Capsule) 100 mg PO TID PRN PRN Reason: Cough Bisacodyl (Bisacodyl 10 Mg Supp.Rect) 10 mg [place] DAILY PRN PRN Reason: Constipation Carbamide Peroxide (Carbamide Peroxide 6.5% Otic 15 Ml Drpbtl) 5 drop EAR-BOTH BID [facility] Stop: 03/03/23 21:01 Last Admin: 02/27/23 22:18 Dose: 5 drop Docusate Sodium (Docusate Sodium 100 Mg Capsule) 100 mg PO DAILY PRN PRN Reason: Constipation Docusate Sodium (Docusate Sodium 100 Mg Capsule) 100 mg PO BID [facility] Last Admin: 02/27/23 22:18 Dose: 100 mg Escitalopram Oxalate (Escitalopram Oxalate 5 Mg Tablet) 5 mg PO DAILY [facility] Last Admin: 02/27/23 08:55 Dose: 5 mg Hydroxyzine HCl (Hydroxyzine Hcl 25 Mg Tablet) 25 mg PO DAILY PRN PRN Reason: Anxiety Sodium Chloride (Ns) 1,000 mls @ 100 mls/hr IVCONT .Q10H [facility] Last Admin: 02/28/23 03:36 Dose: 100 mls/hr Cefazolin Sodium/Dextrose (Ancef) 2 gm in 50 mls @ 100 mls/hr IV PREOP ONE Stop: 02/28/23 08:10 Loratadine (Loratadine 10 Mg Tablet) 10 mg PO DAILY [facility] Last Admin: 02/27/23 08:55 Dose: 10 mg Magnesium Hydroxide (Milk Of Magnesia 30 Ml Oral.Susp) 30 ml PO BEDTIME PRN PRN Reason: Constipation Morphine Sulfate (Morphine Sulfate 4 Mg/Ml Cartridge) 4 mg IVPUSH Q4H PRN; Protocol PRN Reason: Pain, Severe (Pain Scale 7-10) Last Admin: 02/27/23 22:28 Dose: 4 mg Multivitamins/Vitamin C (Multivitamin Tablet) 1 tab PO DAILY [facility] Last Admin: 02/27/23 09:03 Dose: 1 tab Pharmacy Consult (Consult Rx Perform Med Rec) 1 each MISCELLANE ONCE PRN PRN Reason: Consult order Pravastatin Sodium (Pravastatin Sodium 40 Mg Tablet) 40 mg PO BEDTIME [facility] Last Admin: 02/27/23 22:18 Dose: 40 mg Pseudoephedrine HCl (Pseudoephedrine Hcl 30 Mg Tablet) 30 mg PO Q6H PRN PRN Reason: Allergy Symptoms Risperidone (Risperidone 1 Mg Tablet) 1 mg PO BID [facility] Last Admin: 02/27/23 22:18 Dose: 1 mg Risperidone (Risperidone 0.5 Mg Tablet) 0.5 mg PO DAILY PRN PRN Reason: Anxiety Senna (Sennosides 8.6 Mg Tablet) 8.6 mg PO BEDTIME PRN PRN Reason: Constipation Sodium Chloride (0.9 % Sodium Chloride Flush 3 Ml Syringe) 3 ml IVFLUSH QSHIFT [facility] Last Admin: 02/28/23 01:14 Dose: Not Given Home Medications Medication Instructions Recorded Confirmed Last Taken Type acetaminophen 325 mg tablet 650 mg PO Q4H PRN Pain 02/26/23 02/26/23 Unknown History amlodipine 10 mg tablet 10 mg PO DAILY 02/26/23 02/26/23 Unknown History bacitracin zinc 500 unit-polymyxin 1 appl topical Q12H PRN skin 02/26/23 02/26/23 Unknown History B 10,000 unit/gram topical breakdown ointment (Polysporin) benzonatate 100 mg capsule 100 mg PO TID PRN Cough 02/26/23 02/26/23 Unknown History bisacodyl 10 mg rectal suppository 10 mg [place] DAILY PRN Constipation 02/26/23 02/26/23 Unknown History calcium carbonate 200 mg calcium 500 mg PO TID 02/26/23 02/26/23 Unknown History (500 mg) chewable tablet (Antacid (calcium carbonate)) carbamide peroxide 6.5 % ear drops See Rx Instructions .Route .COMPLEX 02/26/23 02/26/23 Unknown History (Ear Drops (carbamide peroxide)) cetirizine 10 mg tablet 10 mg PO DAILY 02/26/23 02/26/23 Unknown History citalopram 10 mg tablet 10 mg PO DAILY 02/26/23 02/26/23 Unknown History docusate sodium 100 mg capsule 100 mg PO BID 02/26/23 02/26/23 Unknown History fluoride (sodium) 1.1 % dental gel 1 appl PO BEDTIME 02/26/23 02/26/23 Unknown History hydroxyzine pamoate 25 mg capsule 25 mg PO DAILY PRN Anxiety 02/26/23 02/26/23 Unknown History magnesium hydroxide 400 mg/5 mL 30 ml PO BEDTIME PRN Constipation 02/26/23 02/26/23 Unknown History oral suspension (Milk of Magnesia) multivitamin with folic acid 400 1 tab PO DAILY 02/26/23 02/26/23 Unknown History mcg tablet (Thera) pravastatin 40 mg tablet 40 mg PO BEDTIME 02/26/23 02/26/23 Unknown History pseudoephedrine HCl 30 mg tablet 30 mg PO Q6H PRN Allergy Symptoms 02/26/23 02/26/23 Unknown History (Suphedrin) risperidone 0.5 mg tablet 0.5 mg PO DAILY PRN Anxiety 02/26/23 02/26/23 Unknown History risperidone 1 mg tablet 1 mg PO BID 02/26/23 02/26/23 Unknown History sennosides 8.6 mg tablet (senna) 8.6 mg PO BEDTIME PRN Constipation 02/26/23 02/26/23 Unknown History sodium chloride 0.65 % nasal spray 1 spray intranasal BID PRN dryness 02/26/23 02/26/23 Unknown History aerosol (Saline Nasal) tolnaftate 1 % topical spray 2 spray topical BID PRN groin rash 02/26/23 02/26/23 Unknown History powder (Tinactin) Physical Exam Vital Signs: Vital Signs: Last Vital Signs Temp 99.3 F 02/28/23 07:34 Pulse 119 H 02/28/23 07:34 Resp 20 02/28/23 07:34 BP 154/66 H 02/28/23 07:34 Pulse Ox 95 02/28/23 07:34 O2 Del Method Room Air 02/28/23 07:34 BMI result Body Mass Index 24.8 Const: General: cooperative, healthy appearing and no acute distress Resp: Effort & Inspection: normal respiratory effort Cardio: Rate: regular rate Peripheral pulses: Peripheral pulses 2+ throughout GI: Palpation (GI): Soft to palpation Skin: Lesions: no lesions Rashes: no rashes Extrem: Other: Left lower extremity is shortened and externally rotated. Able to dorsi/plantarflex. Unable to report if sensation is intact. Pedal pulse intact. Skin intact. Results Labs 02/27/23 07:12 02/27/23 07:12 Labs: Abnormal lab results 02/27/23 Range/Units 15:49 Urine Protein 300 (3+) H (Neg-Trace) mg/dL H & H 02/26/23 02/27/23 Range/Units 20:58 07:12 Hgb 13.8 L 14.4 (14.0-18.0) g/dl Hct 39.0 L 41.7 L (42.0-52.0) % All other labs normal. Assessment and Plan (1) Fracture of head of left femur: Qualifiers: Encounter type: initial encounter Fracture type: closed Qualified Code(s): S72.052A - Unspecified fracture of head of left femur, initial encounter for closed fracture Status: Acute After further discussion based off of the patients activity level and performance with physical therapy, recommendation would be to proceed with left hip hemiarthroplasty. I discussed the case with Dr. Do and explained the extent of the injury to the patient's Guardian Liz about options available which include surgical intervention. I explained the procedure in detail along with the length of recovery and rehab course. I explained the risk, benefits and alternatives. Risk including, but not limited to infection, blood clots, bleeding, non union or malunion and nerve/tissue damage to surrounding areas. I also discussed with Liz that due to the patients baseline mental status this also puts him at a high risk for dislocation and repeat dislocation. I answered all their questions and with their understanding they have consented to move forward with Operative Fixation of the left hip. The patient will remain NPO. Plan for OR later today. (2) Microcephaly: Status: Acute Time Spent With Patient Time: Total time managing care of this patient today ____ minutes. Quality Stroke Does the patient have a stroke diagnosis?: No VTE Prior VTE?: No VTE Risk Level:: Medical - moderate - high VTE Device Contraindication: N/A - Device Ordered VTE Drug Contraindication: Treatment Not Indicated Procedures Date of Service Date of Service: 02/28/23
[2023-02-28] MEDS: Escitalopram Oxalate 5 MG TABLET PO (08:44)
[2023-02-28] MEDS: Loratadine 10 MG TABLET PO (08:44)
[2023-02-28] MEDS: Multivitamin TABLET 1 TAB PO (08:44)
[2023-02-28] MEDS: amLODIPine Besylate 10 MG TABLET PO (08:44)
[2023-02-28] MEDS: risperiDONE 1 MG TABLET PO ×2 (08:44→20:37)
[2023-02-28] MEDS: Docusate Sodium 100 MG CAPSULE PO ×2 (08:44→20:36)
[2023-02-28] MEDS: Morphine Sulfate 4 MG/ML CARTRIDGE IVPUSH (08:50)
[2023-02-28] MEDS: Carbamide Peroxide 6.5% Otic 15 ML DRPBTL 5 DROP EAR-BOTH ×2 (08:57→20:35)
[2023-02-28 09:39] LABS: D Dimer High Sensitivity 269 NG/ML
--- NOTE | 2023-02-28 09:48 | PC.NURSE ---
pt was retained urine. bladder scanned at 0900 got 424 ml. Gordon was inserted at 0945 per hospitalist order. pt tolerated well. continue to monitor
[2023-02-28 10:41] LABS: Potassium Urine Random 47.5 mmol/L; Sodium Urine Random < 20.0 mmol/L
--- NOTE | 2023-02-28 10:59 | MHC.CM.PN ---
Addendum entered by Jazmyn Stauffer 02/28/23 16:14: This CM received a return phone call from long term nurse Treasure, and this CM gave our fax number to her for her to send the guardianship paperwork. Addendum entered by Jazmyn Stauffer 02/28/23 15:46: [facility] nurse Treasure called this CM with their preference per guardian. Treasure stated that [facility] ([facility] is the preferred facility for rehab. Referral placed to [facility]. [facility] responded and are interested, they are requesting guardianship paperwork and will need to make sure there is intent to admit. This CM contacted Treasure and she states she has the guardianship paperwork and will be back to the room shortly (at approx. noon). This CM checked in the pts room x 2 and did not see Treasure. This CM left telephone message with Treasure, awaiting call back. This CM left a telephone message with harley Hill, awaiting call back. Original Note: EMR reviewed and per MD rounds, pt awaiting ortho surgery for left hip fracture repair, STR rehab also recommended upon discharge. This CM called and spoke with pts harley Marie and asked her if she has a preferred rehab. Liz was going to call the long term to ask them for their preference, then call this CM back. Will place referrals once Liz calls back to relay preference.
--- NOTE | 2023-02-28 12:00 | HO.PM.IMPN ---
Subjective Subjective Date of Service: 02/28/23 Review of Systems Follow up fall, hip fracture non verbal, from [facility] Physical Exam Vital Signs: Vital Signs: Last Vital Signs Temp 98.3 F 02/28/23 11:42 Pulse 116 H 02/28/23 11:42 Resp 20 02/28/23 11:42 BP 148/69 H 02/28/23 11:42 Pulse Ox 93 02/28/23 11:42 O2 Del Method Room Air 02/28/23 11:42 BMI result Body Mass Index 24.8 Appearing in no acute distress lung sounds are clear to auscultation heart regular rate rhythm, clear S1, S2 positive bowel sounds, abdomen is soft, nontender neuro patient is alert, nonverbal Objective Data Active Medications Acetaminophen (Acetaminophen 325 Mg Tablet) 650 mg PO Q6H PRN PRN Reason: Pain, Mild (Pain Scale 1-3) Last Admin: 02/27/23 17:46 Dose: 650 mg Documented By: HARINDER Amlodipine Besylate (Amlodipine Besylate 10 Mg Tablet) 10 mg PO DAILY [facility]; Protocol Last Admin: 02/28/23 08:44 Dose: 10 mg Documented By: HARINDER Benzonatate (Benzonatate 100 Mg Capsule) 100 mg PO TID PRN PRN Reason: Cough Bisacodyl (Bisacodyl 10 Mg Supp.Rect) 10 mg [place] DAILY PRN PRN Reason: Constipation Carbamide Peroxide (Carbamide Peroxide 6.5% Otic 15 Ml Drpbtl) 5 drop EAR-BOTH BID [facility] Stop: 03/03/23 21:01 Last Admin: 02/28/23 08:57 Dose: 5 drop Documented By: HARINDER Docusate Sodium (Docusate Sodium 100 Mg Capsule) 100 mg PO DAILY PRN PRN Reason: Constipation Docusate Sodium (Docusate Sodium 100 Mg Capsule) 100 mg PO BID [facility] Last Admin: 02/28/23 08:44 Dose: 100 mg Documented By: HARINDER Escitalopram Oxalate (Escitalopram Oxalate 5 Mg Tablet) 5 mg PO DAILY [facility] Last Admin: 02/28/23 08:44 Dose: 5 mg Documented By: HARINDER Hydroxyzine HCl (Hydroxyzine Hcl 25 Mg Tablet) 25 mg PO DAILY PRN PRN Reason: Anxiety Sodium Chloride (Ns) 1,000 mls @ 150 mls/hr IVCONT .Q6H40M [facility] Last Infusion: 02/28/23 08:43 Dose: 150 mls/hr Documented By: HARINDER Loratadine (Loratadine 10 Mg Tablet) 10 mg PO DAILY [facility] Last Admin: 02/28/23 08:44 Dose: 10 mg Documented By: HARINDER Magnesium Hydroxide (Milk Of Magnesia 30 Ml Oral.Susp) 30 ml PO BEDTIME PRN PRN Reason: Constipation Morphine Sulfate (Morphine Sulfate 4 Mg/Ml Cartridge) 4 mg IVPUSH Q4H PRN; Protocol PRN Reason: Pain, Severe (Pain Scale 7-10) Last Admin: 02/28/23 08:50 Dose: 4 mg Documented By: HARINDER Multivitamins/Vitamin C (Multivitamin Tablet) 1 tab PO DAILY [facility] Last Admin: 02/28/23 08:44 Dose: 1 tab Documented By: HARINDER Pharmacy Consult (Consult Rx Perform Med Rec) 1 each MISCELLANE ONCE PRN PRN Reason: Consult order Pravastatin Sodium (Pravastatin Sodium 40 Mg Tablet) 40 mg PO BEDTIME [facility] Last Admin: 02/27/23 22:18 Dose: 40 mg Documented By: EUGENIO Pseudoephedrine HCl (Pseudoephedrine Hcl 30 Mg Tablet) 30 mg PO Q6H PRN PRN Reason: Allergy Symptoms Risperidone (Risperidone 1 Mg Tablet) 1 mg PO BID [facility] Last Admin: 02/28/23 08:44 Dose: 1 mg Documented By: HARINDER Risperidone (Risperidone 0.5 Mg Tablet) 0.5 mg PO DAILY PRN PRN Reason: Anxiety Senna (Sennosides 8.6 Mg Tablet) 8.6 mg PO BEDTIME PRN PRN Reason: Constipation Sodium Chloride (0.9 % Sodium Chloride Flush 3 Ml Syringe) 3 ml IVFLUSH QSHIFT [facility] Last Admin: 02/28/23 08:43 Dose: Not Given Documented By: HARINDER Non-Admin Reason: IV Running Sodium Chloride (0.9 % Sodium Chloride Flush 3 Ml Syringe) 3 ml IVFLUSH QSHIFT [facility] Labs 02/27/23 07:12 02/27/23 07:12 Labs: Laboratory Results - last 24 hr 02/27/23 02/28/23 02/28/23 15:49 09:10 10:00 D-Dimer High Sensitivty 269 Urine Color Dark Yellow Urine Appearance Clear Urine pH 6.0 Ur Specific [place] 1.020 Urine Protein 300 (3+) H Urine Glucose (UA) Negative Urine Ketones Negative Urine Blood Negative Urine Nitrite Negative Ur Leukocyte Esterase Negative Urine RBC 0-2 Urine WBC 0-5 Ur Squamous Epith Cells 0-2 Urine Bacteria None Seen Hyaline Casts 3-5 Ur Random Sodium < 20.0 Ur Random Potassium 47.5 Ur Random Chloride 39.0 Assessment and Plan (1) Fracture of head of left femur: Status: Acute Plan Pt is a 67-year-old female with a PMH significant for microcephaly, epilepsy, HTN, HLD, atypical autism and OCD who [facility] the ED from a [facility] for evaluation left leg pain.? Patient is nonverbal at baseline and HPI provided a caregiver who is at bedside.? Patient apparently had a witnessed fall yesterday. Pt will be admitted to the hospital for treatment of left hip fracture with likely surgical procedure by Orthopedics tomorrow. Left femoral neck fracture Pelvis CT?showed left femoral neck fracture with superior impaction and apex anterior angulation Analgesics for pain management and plan to schedule medications as patient is nonverbal Pneumatic boots for DVT prophylaxis Orthopedics consulted>plan for OR today Tachycardia neg ddimer IV fluids at 150/hr may likely be secondary to pain no infectious source EKG sinus tachycardia one dose of metoprolol 12.5 mg once, check for response Leukocytosis Possibly secondary to hip fracture, reactive UA neg, CXR neg for consolidation Tachycardia Likely secondary to pain from hip fracture, not sepsis Analgesics for pain management Follow infection workup and treat accordingly EKG with sinus tachy HTN Continue home med HLD Continue meds Full Code Attending:?Dr. Blake DVT Prophylaxis: Pneumatic boots continued hospital stay for treatment of? left hip fracture requiring physical therapy evaluation Time Spent With Patient Time: Total time managing care of this patient today ____ minutes. Quality Stroke Does the patient have a stroke diagnosis?: No VTE Prior VTE?: No VTE Risk Level:: Medical - moderate - high VTE Device Contraindication: N/A - Device Ordered VTE Drug Contraindication: Treatment Not Indicated
[2023-02-28] MEDS: 0.9 % Sodium Chloride 1,000 ML 150 ML IVCONT (12:09)
[2023-02-28] MEDS: Acetaminophen 325 MG TABLET 650 MG PO (12:12)
[2023-02-28] MEDS: Metoprolol Tartrate 12.5 MG HALFTAB PO (12:24)
--- NOTE | 2023-02-28 14:18 | HO.ANESPROP2 ---
HPI - Anesthesia Eval Consult details Narrative: 67 M for left hemiarthroplasty autisctic disorder , microcephaly, non verbal at baseline . Patient had been persistently tacycardiac during hospital stay . Discussed with the hospitalist team . As per them, EKG showed sinus tacycardia, D dimer negative , and no infectious source identified by the team . Case also discussed with Dr Do and the legal guardian . The legal guardian understands that patient has increased risk of perioperative complications , she accepts the risk and would like to proceed with surgery . [facility] Active Problems Active Problems: All Active Problems (Updated 02/27/23 @ 03:48 by Efraín Ramos) Fracture of head of left femur (Acute) Microcephaly (Acute) Past Medical History Medical History Autistic disorder Cataract Constipation Epilepsy Hyperlipemia Hypertension Impulse control disease Microencephaly OCD (obsessive compulsive disorder) Talipes equinus Vitamin D deficiency Family History Family history of problems with anesthesia: Unobtainable Surgical History History of Problems with Anesthesia: No Social History Social History Unable to assess alcohol history related to: Unable to respond Patient Tobacco Use Status: Tobacco use Unknown Use of substances other than those prescribed or required for medical reasons: No Substance Use Type: Unknown Currently Displaying Signs/Symptoms of Drug Intoxication Withdrawal: No Are you DNR?: No Advance Directives: No Advance Directives Information Provided: No Advance Directives on File: No (will contact the longterm for the info Manager Acute Gutierrez [phone]) Nutrition Risks: No Nutritional Risk Poor oral hygiene: No service: No Current occupational status: disabled Meds Allergies Allergy/AdvReac Type Severity Reaction Status Date / Time Benzodiazepines Allergy Unknown UNKNOWN Verified 02/26/23 12:25 [BENZODIAZEPINES] Cephalosporins Allergy Unknown UNKNOWN Verified 02/26/23 12:25 [CEPHALOSPORINS] Penicillins [PENICILLINS] Allergy Unknown UNKNOWN Verified 02/26/23 12:25 Active Medications: Current Medications Acetaminophen (Acetaminophen 325 Mg Tablet) 650 mg PO Q6H [facility] Last Admin: 02/28/23 12:12 Dose: 650 mg Amlodipine Besylate (Amlodipine Besylate 10 Mg Tablet) 10 mg PO DAILY [facility]; Protocol Last Admin: 02/28/23 08:44 Dose: 10 mg Benzonatate (Benzonatate 100 Mg Capsule) 100 mg PO TID PRN PRN Reason: Cough Bisacodyl (Bisacodyl 10 Mg Supp.Rect) 10 mg [place] DAILY PRN PRN Reason: Constipation Carbamide Peroxide (Carbamide Peroxide 6.5% Otic 15 Ml Drpbtl) 5 drop EAR-BOTH BID [facility] Stop: 03/03/23 21:01 Last Admin: 02/28/23 08:57 Dose: 5 drop Docusate Sodium (Docusate Sodium 100 Mg Capsule) 100 mg PO DAILY PRN PRN Reason: Constipation Docusate Sodium (Docusate Sodium 100 Mg Capsule) 100 mg PO BID [facility] Last Admin: 02/28/23 08:44 Dose: 100 mg Escitalopram Oxalate (Escitalopram Oxalate 5 Mg Tablet) 5 mg PO DAILY [facility] Last Admin: 02/28/23 08:44 Dose: 5 mg Hydroxyzine HCl (Hydroxyzine Hcl 25 Mg Tablet) 25 mg PO DAILY PRN PRN Reason: Anxiety Sodium Chloride (Ns) 1,000 mls @ 150 mls/hr IVCONT .Q6H40M [facility] Last Infusion: 02/28/23 13:00 Dose: 0 mls/hr Cefazolin Sodium/Dextrose (Ancef) 2 gm in 50 mls @ 100 mls/hr IV PREOP ONE Stop: 02/28/23 14:29 Loratadine (Loratadine 10 Mg Tablet) 10 mg PO DAILY [facility] Last Admin: 02/28/23 08:44 Dose: 10 mg Magnesium Hydroxide (Milk Of Magnesia 30 Ml Oral.Susp) 30 ml PO BEDTIME PRN PRN Reason: Constipation Morphine Sulfate (Morphine Sulfate 4 Mg/Ml Cartridge) 4 mg IVPUSH Q4H PRN; Protocol PRN Reason: Pain, Severe (Pain Scale 7-10) Last Admin: 02/28/23 08:50 Dose: 4 mg Multivitamins/Vitamin C (Multivitamin Tablet) 1 tab PO DAILY [facility] Last Admin: 02/28/23 08:44 Dose: 1 tab Pharmacy Consult (Consult Rx Perform Med Rec) 1 each MISCELLANE ONCE PRN PRN Reason: Consult order Pravastatin Sodium (Pravastatin Sodium 40 Mg Tablet) 40 mg PO BEDTIME [facility] Last Admin: 02/27/23 22:18 Dose: 40 mg Pseudoephedrine HCl (Pseudoephedrine Hcl 30 Mg Tablet) 30 mg PO Q6H PRN PRN Reason: Allergy Symptoms Risperidone (Risperidone 1 Mg Tablet) 1 mg PO BID [facility] Last Admin: 02/28/23 08:44 Dose: 1 mg Risperidone (Risperidone 0.5 Mg Tablet) 0.5 mg PO DAILY PRN PRN Reason: Anxiety Senna (Sennosides 8.6 Mg Tablet) 8.6 mg PO BEDTIME PRN PRN Reason: Constipation Sodium Chloride (0.9 % Sodium Chloride Flush 3 Ml Syringe) 3 ml IVFLUSH [facility] Last Admin: 02/28/23 08:43 Dose: Not Given Sodium Chloride (0.9 % Sodium Chloride Flush 3 Ml Syringe) 3 ml IVFLUSH [facility] Home Medications Medication Instructions Recorded Confirmed Last Taken Type acetaminophen 325 mg tablet 650 mg PO Q4H PRN Pain 02/26/23 02/26/23 Unknown History amlodipine 10 mg tablet 10 mg PO DAILY 02/26/23 02/26/23 Unknown History bacitracin zinc 500 unit-polymyxin 1 appl topical Q12H PRN skin 02/26/23 02/26/23 Unknown History B 10,000 unit/gram topical breakdown ointment (Polysporin) benzonatate 100 mg capsule 100 mg PO TID PRN Cough 02/26/23 02/26/23 Unknown History bisacodyl 10 mg rectal suppository 10 mg [place] DAILY PRN Constipation 02/26/23 02/26/23 Unknown History calcium carbonate 200 mg calcium 500 mg PO TID 02/26/23 02/26/23 Unknown History (500 mg) chewable tablet (Antacid (calcium carbonate)) carbamide peroxide 6.5 % ear drops See Rx Instructions .Route .COMPLEX 02/26/23 02/26/23 Unknown History (Ear Drops (carbamide peroxide)) cetirizine 10 mg tablet 10 mg PO DAILY 02/26/23 02/26/23 Unknown History citalopram 10 mg tablet 10 mg PO DAILY 02/26/23 02/26/23 Unknown History docusate sodium 100 mg capsule 100 mg PO BID 02/26/23 02/26/23 Unknown History fluoride (sodium) 1.1 % dental gel 1 appl PO BEDTIME 02/26/23 02/26/23 Unknown History hydroxyzine pamoate 25 mg capsule 25 mg PO DAILY PRN Anxiety 02/26/23 02/26/23 Unknown History magnesium hydroxide 400 mg/5 mL 30 ml PO BEDTIME PRN Constipation 02/26/23 02/26/23 Unknown History oral suspension (Milk of Magnesia) multivitamin with folic acid 400 1 tab PO DAILY 02/26/23 02/26/23 Unknown History mcg tablet (Thera) pravastatin 40 mg tablet 40 mg PO BEDTIME 02/26/23 02/26/23 Unknown History pseudoephedrine HCl 30 mg tablet 30 mg PO Q6H PRN Allergy Symptoms 02/26/23 02/26/23 Unknown History (Suphedrin) risperidone 0.5 mg tablet 0.5 mg PO DAILY PRN Anxiety 02/26/23 02/26/23 Unknown History risperidone 1 mg tablet 1 mg PO BID 02/26/23 02/26/23 Unknown History sennosides 8.6 mg tablet (senna) 8.6 mg PO BEDTIME PRN Constipation 02/26/23 02/26/23 Unknown History sodium chloride 0.65 % nasal spray 1 spray intranasal BID PRN dryness 02/26/23 02/26/23 Unknown History aerosol (Saline Nasal) tolnaftate 1 % topical spray 2 spray topical BID PRN groin rash 02/26/23 02/26/23 Unknown History powder (Tinactin) Exam Exam Date and Time: February 28, 2023 1418 Height,Weight and Vital Signs: Height 5 ft 3 in Weight 63.4 kg Last Vital Signs Temp 98.1 F 02/28/23 13:31 Pulse 111 H 02/28/23 13:31 Resp 20 02/28/23 13:31 BP 155/75 H 02/28/23 13:31 Pulse Ox 93 02/28/23 13:31 O2 Del Method Room Air 02/28/23 13:31 Pertinent Lab Results Pertinent Lab Results: Laboratory Tests 02/26/23 02/26/23 02/26/23 20:58 21:23 21:24 WBC 13.9 H RBC 4.41 L Hgb 13.8 L Hct 39.0 L MCV 88.4 MCH 31.3 MCHC 35.4 RDW 12.6 Plt Count 369 MPV 8.2 L Immature Gran % (Auto) 0.4 Neut % (Auto) 88.9 H Lymph % (Auto) 3.7 L [place] % (Auto) 6.8 Eos % (Auto) 0.1 Baso % (Auto) 0.1 Lymph # (Auto) 0.5 L [place] # (Auto) 1.0 Eos # (Auto) 0.0 Baso # (Auto) 0.0 Abs Immat Gran (auto) 0.05 H Absolute Neuts (auto) 12.4 H Absolute Nucleated RBC 0.000 Nucleated RBC % (auto) 0.0 D-Dimer High Sensitivty Sodium 142 Potassium 3.8 Chloride 100 Carbon Dioxide 26 Anion Gap 20 BUN 19 H Creatinine 0.89 Estim Creat Clear Calc TNP Estimated GFR > 60 Random Glucose 178 H Lactic Acid Calcium 9.7 Total Bilirubin 0.6 AST 33 ALT 43 H Alkaline Phosphatase 101 Total Protein 7.6 Albumin 4.6 Urine Color Urine Appearance Urine pH Ur Specific [place] Urine Protein Urine Glucose (UA) Urine Ketones Urine Blood Urine Nitrite Ur Leukocyte Esterase Urine RBC Urine WBC Ur Squamous Epith Cells Urine Bacteria Hyaline Casts Ur Random Sodium Ur Random Potassium Ur Random Chloride Blood Type O Negative Antibody Screen NEGATIVE 02/26/23 02/27/23 02/27/23 21:54 07:12 07:12 WBC 13.7 H RBC 4.55 L Hgb 14.4 Hct 41.7 L MCV 91.6 MCH 31.6 MCHC 34.5 RDW 12.9 Plt Count 370 MPV 8.3 L Immature Gran % (Auto) Neut % (Auto) Lymph % (Auto) [place] % (Auto) Eos % (Auto) Baso % (Auto) Lymph # (Auto) [place] # (Auto) Eos # (Auto) Baso # (Auto) Abs Immat Gran (auto) Absolute Neuts (auto) Absolute Nucleated RBC 0.000 Nucleated RBC % (auto) 0.0 D-Dimer High Sensitivty Sodium 140 Potassium 3.8 Chloride 102 Carbon Dioxide 25 Anion Gap 17 BUN 24 H Creatinine 0.86 Estim Creat Clear Calc 67.0 Estimated GFR > 60 Random Glucose 157 H Lactic Acid 3.1 H* Calcium 9.7 Total Bilirubin AST ALT Alkaline Phosphatase Total Protein Albumin Urine Color Urine Appearance Urine pH Ur Specific [place] Urine Protein Urine Glucose (UA) Urine Ketones Urine Blood Urine Nitrite Ur Leukocyte Esterase Urine RBC Urine WBC Ur Squamous Epith Cells Urine Bacteria Hyaline Casts Ur Random Sodium Ur Random Potassium Ur Random Chloride Blood Type Antibody Screen 02/27/23 02/28/23 02/28/23 15:49 09:10 10:00 WBC RBC Hgb Hct MCV MCH MCHC RDW Plt Count MPV Immature Gran % (Auto) Neut % (Auto) Lymph % (Auto) [place] % (Auto) Eos % (Auto) Baso % (Auto) Lymph # (Auto) [place] # (Auto) Eos # (Auto) Baso # (Auto) Abs Immat Gran (auto) Absolute Neuts (auto) Absolute Nucleated RBC Nucleated RBC % (auto) D-Dimer High Sensitivty 269 Sodium Potassium Chloride Carbon Dioxide Anion Gap BUN Creatinine Estim Creat Clear Calc Estimated GFR Random Glucose Lactic Acid Calcium Total Bilirubin AST ALT Alkaline Phosphatase Total Protein Albumin Urine Color Dark Yellow Urine Appearance Clear Urine pH 6.0 Ur Specific [place] 1.020 Urine Protein 300 (3+) H Urine Glucose (UA) Negative Urine Ketones Negative Urine Blood Negative Urine Nitrite Negative Ur Leukocyte Esterase Negative Urine RBC 0-2 Urine WBC 0-5 Ur Squamous Epith Cells 0-2 Urine Bacteria None Seen Hyaline Casts 3-5 Ur Random Sodium < 20.0 Ur Random Potassium 47.5 Ur Random Chloride 39.0 Blood Type Antibody Screen Airway Mallampati Class: Patient Non-Cooperative Loose/Missing/Broken Teeth: Yes Assessment and Plan Assessment Anesthesia Assessment: Anesthesia Plan Discussed and Chart Reviewed Final Anesthetic Review Family History of Problems with Anesthesia: Unobtainable History of Problems with Anesthesia: No NPO: Yes ASA Class: IV and Emergency Final Preanesthetic Review: Meds/Allgs Chart Reviewed, Consent Obtained/Reviewed and Anes Risks/Benef Reviewed Patient Risk: High Procedure Risk: Intermediate Anesthetic Plan Anesthetic Plan: GA Disposition: Standard PACU and Inp. Admit - IMC
--- NOTE | 2023-02-28 15:04 | MHC.SHP ---
Pre-Procedural Eval Section A Date of Service: 02/28/23 The patient is an INPATIENT: Yes Changes since office visit: No Cold of Flu in the past 2 weeks, No New Medical Problems, No Changes in Medication and No Patient answered all questions The History & Physical has been completed within 30 days and I have reviewed it.: Yes Section B Chief Complaint: Left hip fracture Allergies: Allergies Allergy/AdvReac Type Severity Reaction Status Date / Time Benzodiazepines Allergy Unknown UNKNOWN Verified 02/26/23 12:25 [BENZODIAZEPINES] Cephalosporins Allergy Unknown UNKNOWN Verified 02/26/23 12:25 [CEPHALOSPORINS] Penicillins [PENICILLINS] Allergy Unknown UNKNOWN Verified 02/26/23 12:25 Plan I have reviewed the history and physical and performed a pertinent physical examination on my patient. No changes have occurred unless specified. Time Spent With Patient Time: Total time managing care of this patient today ____ minutes.
--- NOTE | 2023-02-28 17:06 | PM.OP ---
Brief Operative Note Date of Service: 02/28/23 Pre-op diagnosis: Left femoral neck fracture Post-op diagnosis: same Procedure: Left hip hemiarthroplasty Implants: Johnathon Accolade 2 #5 127 deg with -12/18/45 bipolar Surgeon: Chaz Do MD Anesthesia: GETA and local Was an Certified Coding Specialist used for this Procedure?: Yes Certified Coding Specialist: Luz Garcia Estimated blood loss (mL): 175 IV fluids (mL): 1,000 Pathology: other Condition: stable Disposition: PACU
[2023-02-28] MEDS: Acetaminophen 1,000 MG/100 ML PIGGYBACK 400 MG IV (17:53)
--- NOTE | 2023-02-28 18:07 | PC.NURSE ---
PO tylenol charted against due to patient receiving 1000 mg IV tylenol in PACU. Tylenol was ordered to give by anesthesia proivider Dr. Johnson
[2023-02-28] MEDS: Lactated Ringers 1,000 ML 100 ML IVCONT (18:30)
[2023-02-28] MEDS: Celecoxib 200 MG CAPSULE PO (20:35)
[2023-02-28] MEDS: oxyCODONE HCl ER 10 MG TAB.ER.12H PO (20:36)
[2023-02-28] MEDS: Pravastatin Sodium 40 MG TABLET PO (20:36)
[2023-03-01] MEDS: Acetaminophen 325 MG TABLET 650 MG PO ×3 (00:53→17:01)
[2023-03-01] MEDS: Lactated Ringers 1,000 ML 100 ML IVCONT ×3 (00:58→19:35)
[2023-03-01] MEDS: Clindamycin Phosphate/D5W 600 MG/50 ML PIGGYBACK 100 MG IV (00:59)
[2023-03-01 06:43] LABS: MANUAL DIFF FLAG NO
[2023-03-01 06:53] LABS: Hematocrit 35.3 % (42.0-52.0); Imm Gran Abs Auto 0.03 X10*3/uL (0.00-0.03); Imm Gran Pct Auto 0.3 % (0.0-0.4); Lymphocytes Absolute Auto 0.5 X10*3/uL (1.2-4.9); Lymphocytes Percent Auto 5.2 % (20-40); Mean Corpuscular Hemoglobin 31.3 pg (27.0-33.0); Mean Corpuscular Volume 92.2 fL (80.0-98.0); Mean Platelet Volume 8.5 fL (9.4-12.4); Monocytes Absolute Auto 0.6 X10*3/uL (0.1-1.2); Monocytes Percent Auto 6.6 % (2-11); Neutrophils Absolute Auto 7.8 x10*3/uL (2.0-8.3); Neutrophils Percent Auto 87.9 % (45-73); Platelet Count 341 X10*3/uL (160-400); Red Blood Count 3.83 X10*6/uL (4.60-5.80); Red Cell Distribution Width 12.7 % (11.0-16.0); White Blood Count 8.8 X10*3/uL (4.8-10.8)
[2023-03-01 07:08] LABS: Anion Gap 13 (12-20); Blood Urea Nitrogen 21 mg/dL (9-16); Carbon Dioxide 26 mmol/L (22-29); Chloride 107 mmol/L (96-108); Creatinine Clr Calc Pharmacy 75.9; Estimated Glomerular Filt Rate > 60; Glucose Fasting 190 mg/dL (60-99); Sodium 142 mmol/L (135-145)
[2023-03-01 07:16] LABS: Calcium 8.6 mg/dL (8.4-10.2)
--- NOTE | 2023-03-01 07:20 | PM.PNORT ---
Subjective Subjective Date of Service: 03/01/23 Interval history: POD1 s/p lef thip shayne. Patient is resting in bed. Appears comfortably. No overnight events. Physical Exam Vital Signs: Vital Signs: Last Vital Signs Temp 98.1 F 02/28/23 19:08 Pulse 98 02/28/23 19:08 Resp 14 02/28/23 19:08 BP 142/83 H 02/28/23 19:08 Pulse Ox 92 02/28/23 19:08 O2 Del Method Room Air 02/28/23 19:08 O2 Flow Rate 3 02/28/23 18:11 BMI result Body Mass Index 24.8 Const: General: cooperative, healthy appearing and no acute distress Resp: Effort & Inspection: normal respiratory effort and able to speak in complete sentences Cardio: Rate: regular rate Peripheral pulses: Peripheral pulses 2+ throughout GI: Palpation (GI): Soft to palpation Skin: Lesions: no lesions Rashes: no rashes Extrem: Other: Left hip dressing c/d/i. Moving extremity. NVI. Procedures Date of Service Date of Service: 03/01/23 Progress Note: A&P Assessment and plan (1) Fracture of head of left femur: Status: Acute Plan Continue pain mgmnt Begin Lovenox for dvt ppx - Depending on activity level may switch to ASA begin PT for lt hip shayne - WBAT, posterior precautions, abduction pillow Dispo planning-Pending PT eval, pain mgmnt Time Spent With Patient Time: Total time managing care of this patient today ____ minutes. Quality Stroke Does the patient have a stroke diagnosis?: No VTE Prior VTE?: No VTE Risk Level:: Medical - moderate - high VTE Device Contraindication: N/A - Device Ordered VTE Drug Contraindication: Treatment Not Indicated
[2023-03-01] MEDS: risperiDONE 1 MG TABLET PO ×2 (10:18→21:32)
[2023-03-01] MEDS: oxyCODONE HCl ER 10 MG TAB.ER.12H PO ×2 (10:18→21:32)
[2023-03-01] MEDS: Loratadine 10 MG TABLET PO (10:19)
[2023-03-01] MEDS: Escitalopram Oxalate 5 MG TABLET PO (10:19)
[2023-03-01] MEDS: Docusate Sodium 100 MG CAPSULE PO ×2 (10:19→21:32)
[2023-03-01] MEDS: amLODIPine Besylate 10 MG TABLET PO (10:19)
[2023-03-01] MEDS: Multivitamin TABLET 1 TAB PO (10:19)
[2023-03-01] MEDS: Celecoxib 200 MG CAPSULE PO ×2 (10:19→21:32)
[2023-03-01 12:41] VITALS: BP 157/77; PULSE 112; RESP 18; TEMP 36.7; O2SAT 97
--- NOTE | 2023-03-01 12:46 | MHC.CM.PN ---
Guardianship paperwork received, referral for [facility] updated via [facility]. senior care health career representative Raina Oreilly ([phone]) in today and states they would like us to coordinate with the [facility] when he is being discharged to [facility] so that they can have a staff member from the [facility] at [facility]. Pt not yet medically cleared for D/C today per MD rounds and will need to be cleared by ortho.
--- NOTE | 2023-03-01 14:33 | HO.POSTANES ---
Post Anesthesia Evaluation Post Anesthesia Evaluation Date of Service: 03/01/23 Vital Signs: Vital Signs Temp Pulse Resp BP Pulse Ox 03/01/23 12:41 98.0 F 112 H 18 157/77 H 97 Anesthesia: General Endotracheal-GETA Mental Status: Awake Pain Control: Satisfactory Nausea/Vomiting: None Hydration: Adequate Anesthesia-Related Issues: No Anes. Related Issues
--- NOTE | 2023-03-01 15:04 | P.PNIM_ITS ---
Subjective Subjective Date of Service: 03/01/23 Interval History: Remains nonverbal. Appears comfortable Review of Systems Unable to obtain Physical Exam Vital Signs: Vital Signs: Last Vital Signs Temp 98.0 F 03/01/23 12:41 Pulse 112 H 03/01/23 12:41 Resp 18 03/01/23 12:41 BP 157/77 H 03/01/23 12:41 Pulse Ox 97 03/01/23 12:41 O2 Del Method Room Air 02/28/23 19:08 O2 Flow Rate 3 02/28/23 18:11 BMI result Body Mass Index 24.8 Const: Other: Awake/nonverbal. Appears comfortable Resp: Other: Clear to auscultation bilaterally no rales rhonchi or wheezes Cardio: Other: No S4; positive S1-S2; no S3 murmurs rubs or gallops GI: Other: Soft nontender nondistended normoactive bowel sounds Extrem: Other: No edema bilaterally Objective Data Active Medications Acetaminophen (Acetaminophen 325 Mg Tablet) 650 mg PO Q6H [facility] Last Admin: 03/01/23 12:16 Dose: 650 mg Documented By: OANH Amlodipine Besylate (Amlodipine Besylate 10 Mg Tablet) 10 mg PO DAILY [facility]; Protocol Last Admin: 03/01/23 10:19 Dose: 10 mg Documented By: OANH Benzonatate (Benzonatate 100 Mg Capsule) 100 mg PO TID PRN PRN Reason: Cough Bisacodyl (Bisacodyl 10 Mg Supp.Rect) 10 mg [place] DAILY PRN PRN Reason: Constipation Carbamide Peroxide (Carbamide Peroxide 6.5% Otic 15 Ml Drpbtl) 5 drop EAR-BOTH BID [facility] Stop: 03/03/23 21:01 Last Admin: 03/01/23 10:30 Dose: Not Given Documented By: OANH Non-Admin Reason: pt only takes first 5 days of month Celecoxib (Celecoxib 200 Mg Capsule) 200 mg PO BID [facility] Last Admin: 03/01/23 10:19 Dose: 200 mg Documented By: OANH Docusate Sodium (Docusate Sodium 100 Mg Capsule) 100 mg PO DAILY PRN PRN Reason: Constipation Docusate Sodium (Docusate Sodium 100 Mg Capsule) 100 mg PO BID [facility] Last Admin: 03/01/23 10:19 Dose: 100 mg Documented By: OANH Enoxaparin Sodium (Enoxaparin Sodium 40 Mg/0.4 Ml Syringe) 40 mg SUBCUT Q24H [facility] Escitalopram Oxalate (Escitalopram Oxalate 5 Mg Tablet) 5 mg PO DAILY [facility] Last Admin: 03/01/23 10:19 Dose: 5 mg Documented By: OANH Hydromorphone HCl (Hydromorphone Hcl 0.5 Mg/0.5 Ml Syringe) 0.25 mg IVPUSH Q4H PRN; Protocol PRN Reason: Pain, Severe (Pain Scale 7-10) Hydroxyzine HCl (Hydroxyzine Hcl 25 Mg Tablet) 25 mg PO DAILY PRN PRN Reason: Anxiety Lactated Ringer's (Lr) 1,000 mls @ 100 mls/hr IVCONT .Q10H [facility] Last Admin: 03/01/23 10:20 Dose: 100 mls/hr Documented By: OANH Loratadine (Loratadine 10 Mg Tablet) 10 mg PO DAILY [facility] Last Admin: 03/01/23 10:19 Dose: 10 mg Documented By: OANH Magnesium Hydroxide (Milk Of Magnesia 30 Ml Oral.Susp) 30 ml PO BEDTIME PRN PRN Reason: Constipation Multivitamins/Vitamin C (Multivitamin Tablet) 1 tab PO DAILY [facility] Last Admin: 03/01/23 10:19 Dose: 1 tab Documented By: OANH Oxycodone HCl (Oxycodone Hcl Immed Release 5 Mg Tablet) 5 mg PO Q4H PRN PRN Reason: Pain, Moderate(Pain Scale 4-6) Oxycodone HCl (Oxycodone Hcl Er 10 Mg Tab.Er.12h) 10 mg PO BID [facility] Last Admin: 03/01/23 10:18 Dose: 10 mg Documented By: OANH Pharmacy Consult (Consult Rx Perform Med Rec) 1 each MISCELLANE ONCE PRN PRN Reason: Consult order Pravastatin Sodium (Pravastatin Sodium 40 Mg Tablet) 40 mg PO BEDTIME [facility] Last Admin: 02/28/23 20:36 Dose: 40 mg Documented By: CLAUDINE Pseudoephedrine HCl (Pseudoephedrine Hcl 30 Mg Tablet) 30 mg PO Q6H PRN PRN Reason: Allergy Symptoms Risperidone (Risperidone 1 Mg Tablet) 1 mg PO BID [facility] Last Admin: 03/01/23 10:18 Dose: 1 mg Documented By: OANH Risperidone (Risperidone 0.5 Mg Tablet) 0.5 mg PO DAILY PRN PRN Reason: Anxiety Senna (Sennosides 8.6 Mg Tablet) 8.6 mg PO BEDTIME PRN PRN Reason: Constipation Sodium Chloride (0.9 % Sodium Chloride Flush 3 Ml Syringe) 3 ml IVFLUSH QSHIFT [facility] Last Admin: 03/01/23 07:29 Dose: Not Given Documented By: OANH Non-Admin Reason: IV Running Sodium Chloride (0.9 % Sodium Chloride Flush 3 Ml Syringe) 3 ml IVFLUSH QSHIFT [facility] Last Admin: 03/01/23 07:30 Dose: Not Given Documented By: OANH Non-Admin Reason: Duplicate Order Sodium Chloride (0.9 % Sodium Chloride Flush 3 Ml Syringe) 3 ml IVFLUSH QSHIFT [facility] Last Admin: 03/01/23 07:30 Dose: Not Given Documented By: OANH Non-Admin Reason: Duplicate Order Labs 03/01/23 06:26 03/01/23 06:26 Labs: Laboratory Results - last 24 hr 03/01/23 03/01/23 06:26 06:26 MCV 92.2 MCH 31.3 MCHC 34.0 RDW 12.7 Plt Count 341 MPV 8.5 L Immature Gran % (Auto) 0.3 Neut % (Auto) 87.9 H Lymph % (Auto) 5.2 L [place] % (Auto) 6.6 Eos % (Auto) 0.0 Baso % (Auto) 0.0 Lymph # (Auto) 0.5 L [place] # (Auto) 0.6 Eos # (Auto) 0.0 Baso # (Auto) 0.0 Abs Immat Gran (auto) 0.03 Absolute Neuts (auto) 7.8 Absolute Nucleated RBC 0.000 Nucleated RBC % (auto) 0.0 Anion Gap 13 Estim Creat Clear Calc 75.9 Estimated GFR > 60 Fasting Glucose 190 H Calcium 8.6 D Assessment and Plan (1) Fracture of head of left femur: Status: Acute (2) Hypertension: Status: Acute Plan Pt is a 67-year-old female with a PMH significant for microcephaly, epilepsy, HTN, HLD, atypical autism and OCD who presents to the ED from a halfway for evaluation left leg pain.? Patient is nonverbal at baseline and HPI provided a caregiver who is at bedside.? Patient apparently had a witnessed fall yesterday. Underwent left hip shayne arthroplasty without issue 1.Left femoral neck fracture -POD 1 -asa per ortho 2.Tachycardia/leukocytosis -both resolved 3.HTN -acceptable control on current therapies -adjust as indicated Lovenox Full Code continued hospital stay for treatment of? left hip fracture requiring physical therapy evaluation Time Spent With Patient Time: Total time managing care of this patient today ____ minutes. Quality Stroke Does the patient have a stroke diagnosis?: No VTE Prior VTE?: No VTE Risk Level:: Medical - moderate - high VTE Device Contraindication: N/A - Device Ordered VTE Drug Contraindication: Treatment Not Indicated
[2023-03-01 15:06] VITALS: BP 145/67; PULSE 103; RESP 19; TEMP 36.7; O2SAT 99
[2023-03-01] MEDS: Enoxaparin Sodium 40 MG/0.4 ML SYRINGE SUBCUT (17:01)
[2023-03-01 17:49] VITALS: O2SAT 96
[2023-03-01 20:00] VITALS: BP 168/77; PULSE 97; RESP 20; TEMP 36.4; O2SAT 94
[2023-03-01] MEDS: Pravastatin Sodium 40 MG TABLET PO (21:33)
[2023-03-01] MEDS: 0.9 % Sodium Chloride Flush 3 ML SYRINGE IVFLUSH (21:33)
[2023-03-01] MEDS: Carbamide Peroxide 6.5% Otic 15 ML DRPBTL 5 DROP EAR-BOTH (21:33)
[2023-03-01 23:10] VITALS: BP 143/73; PULSE 102; RESP 18; TEMP 36.9; O2SAT 96
[2023-03-02 03:13] VITALS: BP 136/82; PULSE 123; RESP 18; TEMP 36.9; O2SAT 96
[2023-03-02] MEDS: Lactated Ringers 1,000 ML 100 ML IVCONT ×2 (05:31→15:38)
[2023-03-02 06:50] LABS: MANUAL DIFF FLAG NO
[2023-03-02 06:56] LABS: Basophils Absolute Auto 0.1 X10*3/uL (0.0-0.2); Basophils Percent Auto 0.5 % (0-2); Eosinophils Absolute Auto 0.5 X10*3/uL (0.0-0.4); Eosinophils Percent Auto 5.3 % (0-4); Hematocrit 36.1 % (42.0-52.0); Hemoglobin 12.3 g/dl (14.0-18.0); Imm Gran Abs Auto 0.05 X10*3/uL (0.00-0.03); Imm Gran Pct Auto 0.5 % (0.0-0.4); Lymphocytes Absolute Auto 1.7 X10*3/uL (1.2-4.9); Lymphocytes Percent Auto 17.9 % (20-40); Mean Corpuscular HGB Conc 34.1 g/dl (31.0-36.0); Mean Corpuscular Hemoglobin 31.6 pg (27.0-33.0); Mean Corpuscular Volume 92.8 fL (80.0-98.0); Mean Platelet Volume 8.6 fL (9.4-12.4); Monocytes Absolute Auto 0.8 X10*3/uL (0.1-1.2); Monocytes Percent Auto 8.5 % (2-11); Neutrophils Absolute Auto 6.2 x10*3/uL (2.0-8.3); Neutrophils Percent Auto 67.3 % (45-73); Platelet Count 417 X10*3/uL (160-400); Red Blood Count 3.89 X10*6/uL (4.60-5.80); Red Cell Distribution Width 12.8 % (11.0-16.0); White Blood Count 9.2 X10*3/uL (4.8-10.8)
[2023-03-02 07:04] LABS: Anion Gap 12 (12-20); Blood Urea Nitrogen 14 mg/dL (9-16); Calcium 8.8 mg/dL (8.4-10.2); Carbon Dioxide 31 mmol/L (22-29); Chloride 103 mmol/L (96-108); Creatinine Clr Calc Pharmacy 90.1; Estimated Glomerular Filt Rate > 60; Glucose Fasting 89 mg/dL (60-99); Potassium 3.9 mmol/L (3.3-5.1); Sodium 142 mmol/L (135-145)
[2023-03-02] MEDS: Escitalopram Oxalate 5 MG TABLET PO (07:56)
[2023-03-02] MEDS: amLODIPine Besylate 10 MG TABLET PO (07:56)
[2023-03-02] MEDS: oxyCODONE HCl ER 10 MG TAB.ER.12H PO ×2 (07:56→22:29)
[2023-03-02] MEDS: Multivitamin TABLET 1 TAB PO (07:56)
[2023-03-02] MEDS: Celecoxib 200 MG CAPSULE PO ×2 (07:56→22:30)
[2023-03-02] MEDS: Loratadine 10 MG TABLET PO (07:56)
[2023-03-02] MEDS: risperiDONE 1 MG TABLET PO ×2 (07:56→22:30)
[2023-03-02] MEDS: Docusate Sodium 100 MG CAPSULE PO ×2 (07:57→22:29)
[2023-03-02] MEDS: 0.9 % Sodium Chloride Flush 3 ML SYRINGE IVFLUSH ×4 (07:57→22:37)
[2023-03-02] MEDS: Carbamide Peroxide 6.5% Otic 15 ML DRPBTL 5 DROP EAR-BOTH ×2 (07:57→22:30)
[2023-03-02 08:00] VITALS: BP 127/71; PULSE 115; RESP 20; TEMP 37.2; O2SAT 93
--- NOTE | 2023-03-02 08:40 | PM.PNORT ---
Subjective Subjective Date of Service: 03/02/23 Interval history: POD2 s/p lef thip shayne. Patient is resting in bed. Appears comfortably. No overnight events. Physical Exam Vital Signs: Vital Signs: Last Vital Signs Temp 98.9 F 03/02/23 08:00 Pulse 115 H 03/02/23 08:00 Resp 20 03/02/23 08:00 BP 127/71 03/02/23 08:00 Pulse Ox 93 03/02/23 08:00 O2 Del Method Room Air 03/02/23 03:13 O2 Flow Rate 3 02/28/23 18:11 BMI result Body Mass Index 24.8 Const: Other: Awake/nonverbal. Appears comfortable General: cooperative, healthy appearing and no acute distress Resp: Other: Clear to auscultation bilaterally no rales rhonchi or wheezes Effort & Inspection: normal respiratory effort and able to speak in complete sentences Cardio: Other: No S4; positive S1-S2; no S3 murmurs rubs or gallops Rate: regular rate Peripheral pulses: Peripheral pulses 2+ throughout GI: Other: Soft nontender nondistended normoactive bowel sounds Palpation (GI): Soft to palpation Skin: Lesions: no lesions Rashes: no rashes Extrem: Other: Left hip Aquacell is c/d/i. Moving foot and all digits. NVI. Procedures Date of Service Date of Service: 03/02/23 Progress Note: A&P Assessment and plan (1) Fracture of head of left femur: Status: Acute Plan Continue pain mgmnt Continue Lovenox for dvt ppx - Depending on activity level may switch to ASA Continue PT for lt hip shayne - WBAT, posterior precautions, abduction pillow Dispo planning-PT, pain mgmnt Time Spent With Patient Time: Total time managing care of this patient today ____ minutes. Quality Stroke Does the patient have a stroke diagnosis?: No VTE Prior VTE?: No VTE Risk Level:: Medical - moderate - high VTE Device Contraindication: N/A - Device Ordered VTE Drug Contraindication: Treatment Not Indicated
[2023-03-02] MEDS: Acetaminophen 325 MG TABLET 650 MG PO ×2 (11:41→17:00)
[2023-03-02] MEDS: Milk of Magnesia 30 ML ORAL.SUSP PO (14:15)
[2023-03-02 15:21] VITALS: BP 151/77; PULSE 105; RESP 19; TEMP 36.6; O2SAT 92
[2023-03-02] MEDS: Enoxaparin Sodium 40 MG/0.4 ML SYRINGE SUBCUT (15:39)
--- NOTE | 2023-03-02 15:50 | PM.DS ---
DS: Providers Provider Date of Service: 03/02/23 Date of admission: 02/26/23 20:46 Date of discharge: 03/02/23 Primary care physician: Schuyler Mathews MD Consults: 02/26/23 20:54 Consult to Orthopedics Routine Consulting Provider: [facility] Reason for consultation: Subcapital left formoral fracture DS: Diagnosis Discharge Diagnosis (1) Fracture of head of left femur: Status: Acute DS: Summary Hospital Course Hospital Course: Pt is a 67-year-old female with a PMH significant for microcephaly, epilepsy, HTN, HLD, atypical autism and OCD who presents to the ED from a nursing home for evaluation left leg pain.? Patient is nonverbal at baseline and HPI provided a caregiver who is at bedside.? Patient apparently had a witnessed fall yesterday.? Patient was apparently skipping when it appeared that his ankle ?gave out?.? Patient fell to the ground on his left side but staff deny LOC or head strike.? Patient was seen limping after his fall and staff thought he had twisted his ankle.? His PCP ordered outpatient x-rays to be taken, but results have not yet come back.? Patient is normally toilet himself but in the morning staff noted he was incontinent of urine, refused to sit up or walk to the bathroom to get cleaned.? Staff then brought patient to the ED due to continued leg pain and inability to ambulate.? Patient ate and drank a little at breakfast this morning, but has since refused both p.o. solids and liquids. His diet is normally mechanically ground with thin liquids. In the ED patient was afebrile but tachycardic up to 114. Labs were significant for leukocytosis of 13.9, otherwise unremarkable.. Left foot and ankle x-ray show no evidence of acute fracture or dislocation of the left foot or ankle.? CT of head shows no acute intracranial pathology and CT of cervical spine showed no evidence of acute cervical spine fracture or traumatic subluxation.? Is CT of hip showed left femoral neck fracture with superior impaction and apex anterior angulation. Pt was treated with diphenhydramine, cyclobenzaprine, Haldol, oxycodone. Pt will be admitted to the hospital for treatment of left hip fracture with likely surgical procedure by Orthopedics tomorrow. Hospital Course Admitted to general medical floor. On 02/28/2023 patient underwent left hip hemiarthroplasty without issue. His postoperative. Is unremarkable. He will be discharged to short-term rehab with an expected stay of less than 30 days Time Spent with Patient Time attestation: Total time managing care of this patient today ____ minutes. Discharge coordination time: Greater than 30 minutes Quality: Safe Use of Opioids Does Pt have an Active Cancer Diagnosis on the Problem List?: No Quality: Stroke Does the patient have a stroke diagnosis?: No Physical Exam Vital Signs: Vital Signs: Last Vital Signs Temp 97.8 F 03/02/23 15:21 Pulse 105 H 03/02/23 15:21 Resp 19 03/02/23 15:21 BP 151/77 H 03/02/23 15:21 Pulse Ox 92 03/02/23 15:21 O2 Del Method Room Air 03/02/23 15:21 O2 Flow Rate 3 02/28/23 18:11 BMI result Body Mass Index 24.8 Const: Other: Awake/nonverbal. Appears comfortable Resp: Other: Clear to auscultation bilaterally no rales rhonchi or wheezes Cardio: Other: No S4; positive S1-S2; no S3 murmurs rubs or gallops GI: Other: Soft nontender nondistended normoactive bowel sounds Extrem: Other: No edema bilaterally DS: Data Data Completed and Pending Pending studies at discharge: Pending at discharge 02/28/23 16:51 Surgical [PTH] Routine Labs on day of discharge: Laboratory Results - last 24 hr 03/02/23 03/02/23 05:56 05:56 WBC 9.2 RBC 3.89 L Hgb 12.3 L Hct 36.1 L MCV 92.8 MCH 31.6 MCHC 34.1 RDW 12.8 Plt Count 417 H MPV 8.6 L Immature Gran % (Auto) 0.5 H Neut % (Auto) 67.3 Lymph % (Auto) 17.9 L Ness % (Auto) 8.5 Eos % (Auto) 5.3 H Baso % (Auto) 0.5 Lymph # (Auto) 1.7 Ness # (Auto) 0.8 Eos # (Auto) 0.5 H Baso # (Auto) 0.1 Abs Immat Gran (auto) 0.05 H Absolute Neuts (auto) 6.2 Absolute Nucleated RBC 0.000 Nucleated RBC % (auto) 0.0 Sodium 142 Potassium 3.9 Chloride 103 Carbon Dioxide 31 H Anion Gap 12 BUN 14 Creatinine 0.64 Estim Creat Clear Calc 90.1 Estimated GFR > 60 Fasting Glucose 89 Calcium 8.8 Discharge Plan Discharge Anticipated Discharge Date/Time: 03/02/23 15:45 Patient Disposition: Xfer SNF Discharge Diagnosis: Left femoral head fracture Referrals: Belgica Pryor PA-C [Physician Diesel Powerplant Mechanic] - 2 Weeks (03/16/23 3:00 [facility] Belgica Pryor PA-C) Discharge Medications: New celecoxib 200 mg Capsule 200 mg PO BID Qty: 60 0RF oxycodone [OxyContin] 10 mg Tablet,Oral Only,Ext.Rel.12 Hr 10 mg PO BID Qty: 20 0RF Rx Instructions: Partial Fill upon patient request. oxycodone 5 mg Tablet 5 mg PO Q4H PRN (Reason: Pain, Moderate(Pain Scale 4-6)) Qty: 20 0RF Rx Instructions: Partial Fill upon patient request. Continued sennosides [senna] 8.6 mg Tablet 8.6 mg PO BEDTIME PRN (Reason: Constipation) acetaminophen 325 mg tablet 650 mg PO Q4H PRN (Reason: Pain) cetirizine 10 mg tablet 10 mg PO DAILY Rx Instructions: HOLD WHEN HYDROXYZINE IN USE; IN USE DURING DECEMBER-JUNE pravastatin 40 mg tablet 40 mg PO BEDTIME citalopram 10 mg tablet 10 mg PO DAILY magnesium hydroxide [Milk of Magnesia] 400 mg/5 mL suspension 30 ml PO BEDTIME PRN (Reason: Constipation) amlodipine 10 mg tablet 10 mg PO DAILY benzonatate 100 mg Capsule 100 mg PO TID PRN (Reason: Cough) bisacodyl 10 mg suppository 10 mg ID DAILY PRN (Reason: Constipation) Rx Instructions: After 8 hrs of MOM with no BM calcium carbonate [Antacid (calcium carbonate)] 200 mg calcium (500 mg) tablet,chewable 500 mg PO TID Ear Drops (carbamide peroxide) 6.5 % drops See Rx Instructions .ROUTE .COMPLEX Rx Instructions: 4 drps into both ears twice daily for 5 days monthly docusate sodium 100 mg capsule 100 mg PO BID pseudoephedrine HCl [Suphedrin] 30 mg Tablet 30 mg PO Q6H PRN (Reason: Allergy Symptoms) Rx Instructions: DNExceed 4 doses/24h risperidone 1 mg tablet 1 mg PO BID fluoride (sodium) 1.1 % gel 1 appl PO BEDTIME Rx Instructions: brush along gum line tolnaftate [Tinactin] 1 % Aerosol Powder 2 spray TOPICAL BID PRN (Reason: groin rash) risperidone 0.5 mg tablet 0.5 mg PO DAILY PRN (Reason: Anxiety) hydroxyzine pamoate 25 mg capsule 25 mg PO DAILY PRN (Reason: Anxiety) Rx Instructions: HOLD CETIRIZINE WHEN IN USE Saline Nasal 0.65 % Aerosol,[place] 1 spray INTRANASAL BID PRN (Reason: dryness) bacitracin zinc-polymyxin B [Polysporin] 500-10,000 unit/gram Ointment 1 appl TOPICAL Q12H PRN (Reason: skin breakdown) multivitamin with folic acid [Thera] 400 mcg tablet 1 tab PO DAILY Discharge Orders: Discharge Order (Routine); Ordered 03/02/23 Ordered By: Ashish Lopez Diet: Regular diet Activity on Discharge: Use cane or walker Stand Alone Forms: Patient Portal Discharge page Care Plan Goals: Resume all pre-hospital therapies Health Concerns: Physical therapy and rehab as per receiving facility Plan of Treatment: Physical Therapy for hip hemiarthroplasty: wbat, posterior precautions, gait training, ROM, strength Limit stair climbing No showering, no tub bath-keep dressing clean, dry and intact No driving x6 weeks Continue Aspirin twice a day x 6 weeks Follow up [place] [facility] [place] 2 weeks: 03/16/23 3:00 [facility]gica Pryor PA-C Assessment: See discharge plan
[2023-03-02] MEDS: Sennosides 8.6 MG TABLET PO (17:00)
[2023-03-02 19:49] VITALS: BP 157/78; PULSE 98; RESP 18; TEMP 37; O2SAT 97
[2023-03-02] MEDS: Pravastatin Sodium 40 MG TABLET PO (22:30)
[2023-03-02 23:11] VITALS: BP 136/73; PULSE 99; RESP 18; TEMP 37.3; O2SAT 98
[2023-03-03] VITALS: BP 136/75; PULSE 99; RESP 18; TEMP 37.6; O2SAT 93
[2023-03-03] MEDS: Acetaminophen 325 MG TABLET 650 MG PO ×3 (00:49→12:21)
[2023-03-03 03:12] VITALS: BP 146/71; RESP 18; TEMP 36.7; O2SAT 97
[2023-03-03 03:41] VITALS: BP 146/71; PULSE 91; RESP 18; TEMP 36.7; O2SAT 97
[2023-03-03] MEDS: Sodium Phosphate,Mono-Dibasic 133 ML ENEMA PR (05:59)
[2023-03-03 06:29] LABS: MANUAL DIFF FLAG NO
[2023-03-03 06:31] LABS: Basophils Absolute Auto 0.1 X10*3/uL (0.0-0.2); Basophils Percent Auto 0.9 % (0-2); Eosinophils Absolute Auto 0.6 X10*3/uL (0.0-0.4); Hematocrit 34.4 % (42.0-52.0); Hemoglobin 11.7 g/dl (14.0-18.0); Imm Gran Abs Auto 0.03 X10*3/uL (0.00-0.03); Imm Gran Pct Auto 0.4 % (0.0-0.4); Lymphocytes Absolute Auto 1.8 X10*3/uL (1.2-4.9); Lymphocytes Percent Auto 23.6 % (20-40); Mean Corpuscular Hemoglobin 31.4 pg (27.0-33.0); Mean Corpuscular Volume 92.2 fL (80.0-98.0); Mean Platelet Volume 8.3 fL (9.4-12.4); Monocytes Absolute Auto 0.7 X10*3/uL (0.1-1.2); Monocytes Percent Auto 9.2 % (2-11); Neutrophils Absolute Auto 4.4 x10*3/uL (2.0-8.3); Neutrophils Percent Auto 57.9 % (45-73); Platelet Count 404 X10*3/uL (160-400); Red Blood Count 3.73 X10*6/uL (4.60-5.80); Red Cell Distribution Width 12.8 % (11.0-16.0); White Blood Count 7.5 X10*3/uL (4.8-10.8)
[2023-03-03 06:59] LABS: Anion Gap 13 (12-20); Blood Urea Nitrogen 14 mg/dL (9-16); Calcium 8.8 mg/dL (8.4-10.2); Carbon Dioxide 29 mmol/L (22-29); Chloride 102 mmol/L (96-108); Creatinine Clr Calc Pharmacy 86.1; Estimated Glomerular Filt Rate > 60; Glucose Fasting 96 mg/dL (60-99); Sodium 140 mmol/L (135-145)
--- NOTE | 2023-03-03 08:26 | PM.PNORT ---
Subjective Subjective Date of Service: 03/03/23 Interval history: POD3 s/p lef thip shayne. Patient is resting in bed. Appears comfortably. No overnight events. Physical Exam Vital Signs: Vital Signs: Last Vital Signs Temp 98.1 F 03/03/23 03:41 Pulse 91 03/03/23 03:41 Resp 18 03/03/23 03:41 BP 146/71 H 03/03/23 03:41 Pulse Ox 97 03/03/23 03:41 O2 Del Method Room Air 03/03/23 03:12 O2 Flow Rate 3 02/28/23 18:11 BMI result Body Mass Index 24.8 Const: Other: Awake/nonverbal. Appears comfortable General: cooperative, healthy appearing and no acute distress Resp: Other: Clear to auscultation bilaterally no rales rhonchi or wheezes Effort & Inspection: normal respiratory effort and able to speak in complete sentences Cardio: Other: No S4; positive S1-S2; no S3 murmurs rubs or gallops Rate: regular rate Peripheral pulses: Peripheral pulses 2+ throughout GI: Other: Soft nontender nondistended normoactive bowel sounds Palpation (GI): Soft to palpation Skin: Lesions: no lesions Rashes: no rashes Extrem: Other: Left hip Aquacell is c/d/i. Moving foot and all digits. NVI. Procedures Date of Service Date of Service: 03/03/23 Progress Note: A&P Assessment and plan (1) Fracture of head of left femur: Status: Acute Plan Continue pain mgmnt Continue Lovenox for dvt ppx - Depending on activity level may switch to ASA Continue PT for lt hip shayne - WBAT, posterior precautions, abduction pillow Dispo planning-ok to dc from ortho stand point f/u in office in 2 weeks Time Spent With Patient Time: Total time managing care of this patient today ____ minutes. Quality Stroke Does the patient have a stroke diagnosis?: No VTE Prior VTE?: No VTE Risk Level:: Medical - moderate - high VTE Device Contraindication: N/A - Device Ordered VTE Drug Contraindication: Treatment Not Indicated
--- NOTE | 2023-03-03 08:35 | MHC.CM.PN ---
Addendum entered by Cinthya Amos RN 03/03/23 08:59: CM CONTACTED PT'S NETO ALMEIDA AT 8:45AM W/TIME OF 1pm D/C AND ELLE REPORTED SHE WILL BE AT SNF AT 11AM TO SIGN ADMISSION PAPERWORK. Addendum entered by Cinthya Amos RN 03/03/23 08:44: HEALTH COORDINATOR CATRACHITA CONTACTED AT 8:40AM OF ANTIC D/C AT 1PM, CATRACHITA WILL LET KNOW. Original Note: PT MEDICALLY CLEARED FOR D/C ON 03/02/23, CM AWAITING FOR SNF TO RESPOND TO 12:30PM TXFR TIME, AND [facility] AWARE PT WILL D/C TODAY, IMM 03/03/23 DELIVERED TO [facility] ON 03/02/23 AT BEDSIDE, [facility] FOR BLS TRANSPORT.
[2023-03-03] MEDS: oxyCODONE HCl ER 10 MG TAB.ER.12H PO (09:33)
[2023-03-03] MEDS: Loratadine 10 MG TABLET PO (09:33)
[2023-03-03] MEDS: amLODIPine Besylate 10 MG TABLET PO (09:33)
[2023-03-03] MEDS: 0.9 % Sodium Chloride Flush 3 ML SYRINGE IVFLUSH (09:33)
[2023-03-03] MEDS: Celecoxib 200 MG CAPSULE PO (09:33)
[2023-03-03] MEDS: Multivitamin TABLET 1 TAB PO (09:33)
[2023-03-03] MEDS: Escitalopram Oxalate 5 MG TABLET PO (09:33)
[2023-03-03] MEDS: risperiDONE 1 MG TABLET PO (09:33)
[2023-03-03] MEDS: Docusate Sodium 100 MG CAPSULE PO (09:34)
[2023-03-03] MEDS: Carbamide Peroxide 6.5% Otic 15 ML DRPBTL 5 DROP EAR-BOTH (09:35)
[2023-03-03 10:35] VITALS: BP 146/71; PULSE 91; O2SAT 97
[2023-03-03 11:16] VITALS: BP 139/75; PULSE 105; RESP 16; TEMP 36.8; O2SAT 96
--- NOTE | 2023-03-12 10:38 | P.OP_ITS ---
Operative Note Operative Note Date of Service: 02/28/23 Narrative: Date of Service: 02/28/23 Pre-op diagnosis: Left femoral neck fracture Post-op diagnosis: same Procedure: Left hip hemiarthroplasty Implants: Johnathon Accolade 2 #5 127 deg with -3 bipolar Surgeon: Chaz Do MD Anesthesia: GETA and local Was an Securities Analyst used for this Procedure?: Yes Securities Analyst: Luz Garcia Estimated blood loss (mL): 175 IV fluids (mL): 1,000 Pathology: other Condition: stable Disposition: PACU Procedure in detail: Patient was brought to the operative room placed in the lateral decubitus position. All bony prominences were well padded and the was prepped and draped in standard sterile fashion. IV antibiotics per weight were administered and a time-out was called to identify proper site proper procedure proper surgeon. Radiographs were available and confirmed. I began by making a curvilinear incision over the posterolateral aspect of the greater trochanter. Dissection was taken down to the tensor fascia which was incised in line with the incision and a Charnley retractor was placed. The hip was internally rotated and the external rotators were identified. All vessels in the area were cauterized and a full-thickness capsular/external rotator layer was developed in a hockey-stick fashion starting just proximal to the piriformis. This layer was tagged and the displaced femoral neck fracture was identified. Clean-up cuts was performed while protection the posterolateral soft tissues and the head was removed and measured (46 mm) on the back table. I then copiously irrigated the acetabulum and removed all bony fragments. Once this was done I used a cookie cutter to lateralize and a Charnley awl to identify the canal and then sequentially broached up to a 127 deg #5. I then trialed with a standard head and a minus head and a bipolar component matching the femoral head size. I was satisfied with the range of motion and stability and length using the -3. Therefore I removed all instrumentation and copiously irrigated. I then placed my final femoral implant and then retrialed. I was satisfied with the range and stability of the implant. My final bipolar components were then placed. I closed the capsular layer with FiberWire and then, after a three minute iodine soak. I performed a layered closure with alessandro on skin. The patient was placed in sterile dressing extubated brought to recovery room in stable condition there were no known complications.
== END 2023-03-03 13:37 | disposition skilled nursing facility (03) | DRG 522 ==
LOC: HO.ED 13:45 → HO.EDOVER 20:56 → HO.IMC 02-27 02:23
PROVIDERS: Internal Medicine; Nurse Practitioner Acute Care; Orthopaedic Surgery; Physician Assistant; Admitting Provider Student in an Organized Health Care Education/Training Program; Emergency Provider Internal Medicine; PCP Internal Medicine; Visit Provider Hospitalist
PROC: (CPT 27125; principal; 2023-02-28 13:00)
DX: S72.012A Unspecified intracapsular fracture of left femur, initial encounter for closed fracture (principal); F84.0 Autistic disorder; D72.829 Elevated white blood cell count, unspecified; W19.XXXA Unspecified fall, initial encounter; E78.5 Hyperlipidemia, unspecified; I10 Essential (primary) hypertension; Q02 Microcephaly; G40.909 Epilepsy, unspecified, not intractable, without status epilepticus; Z79.899 Other long term (current) drug therapy
CPT/HCPCS: 36415; 70450; 71045; 72125; 72170; 72192; 73502; 73610; 73620; 80048; 80053; 81001; 82436; 83605; 84133; 84300; 85025; 85027; 85379; 86850; 86900; 86901; 88305; 88311; 93005; 97110; 97163; 97167; 97530; 99284; C1758; C1776; J0131; J0690; J1100; J1170; J1650; J2250; J2270; J2405; J2795; J3010

== ENCOUNTER 2023-03-16 09:15 | Outpatient (REF) | payer MEDICARE, MEDICAID, SELFPAY | END 2023-03-16 09:16 | disposition home or self-care (01) | LOC: HO.HOSX 09:15 | PROVIDERS: Visit Provider Physician Assistant | DX: S72.052D Unspecified fracture of head of left femur, subsequent encounter for closed fracture with routine healing (principal) | CPT/HCPCS: 72170; 99212 ==

== ENCOUNTER 2023-04-13 11:57 | Outpatient (REF) | payer MEDICARE, MEDICAID, SELFPAY ==
--- NOTE | ~2023-04-13 | XR_ITS ---
EXAMINATION: XR PELVIS CLINICAL INFORMATION: Hip pain. COMPARISON: 03/16/2023 and studies dating back to 02/26/2023. TECHNIQUE: AP view of the pelvis. FINDINGS: The patient is status post left hip arthroplasty with acetabular and femoral components unchanged in position without evidence of hardware failure or dislocation. There is some spurring involving the right hip joint space without joint space narrowing appreciated. Sacroiliac joints appear unremarkable. There is some degenerative change at the L5-S1 level with facet arthropathy, right greater than left. XR/XR pelvis 1-2V IMPRESSION: Stable appearance of the left hip arthroplasty.
== END 2023-04-13 11:58 | disposition home or self-care (01) ==
LOC: HO.HOSX 11:57
PROVIDERS: Visit Provider Physician Assistant
DX: S72.052D Unspecified fracture of head of left femur, subsequent encounter for closed fracture with routine healing (principal)
CPT/HCPCS: 72170

== ENCOUNTER 2023-04-13 12:32 | Outpatient (AMB) | payer MEDICARE, MEDICAID, SELFPAY ==
--- NOTE | 2023-04-13 12:44 | MHC.OFFVIS ---
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 He continues to take pain medication as prescribed. GOVERNOR ASSEMBLER HYDRAULIC would like to discuss medications. She states incision looks good but has concerns of wound on right hip. Allergies Benzodiazepines [BENZODIAZEPINES] Allergy (Unknown, Verified 04/13/23 13:33) UNKNOWN Cephalosporins [CEPHALOSPORINS] Allergy (Unknown, Verified 04/13/23 13:33) UNKNOWN Penicillins [PENICILLINS] Allergy (Unknown, Verified 04/13/23 13:33) UNKNOWN HPI Post Op - Left hip shayne dos 02/28/23 HPI Details 68-year-old male who presents in the office today 6 weeks status post left hip hemiarthroplasty, which was performed on 02/28/[address] Do. The patient?s GOVERNOR ASSEMBLER HYDRAULIC worker states he is doing well. The GOVERNOR ASSEMBLER HYDRAULIC would like to discuss medication. She states the incision looks good but is concerned about the wound on the right hip. [facility] Medical History Autistic disorder Cataract Constipation Epilepsy Hyperlipemia Hypertension Impulse control disease Microcephaly Microencephaly OCD (obsessive compulsive disorder) Talipes equinus Vitamin D deficiency Social History Unable to assess alcohol history related to: Unable to respond Patient Tobacco Use Status: Tobacco use Unknown Substance Use Type: Unknown service: No Current occupational status: disabled Review of Systems Const All systems reviewed & are unremarkable except as noted in HPI and below Physical Exam Const General: cooperative and no acute distress Orientation/consciousness: patient oriented x3 Resp Effort & Inspection: normal respiratory effort and able to speak in complete sentences Cardio Rate: regular rate Peripheral pulses: Peripheral pulses 2+ throughout GI Palpation (GI): Soft to palpation Skin Lesions: no lesions Rashes: no rashes Neuro General: patient oriented x3 Extrem Other: Left hip: Incision site is well approximated and completely healed. Able to go from sitting to standing with assistance. Good internal and external rotation. Able to perform straight leg raise. Right hip: Beginning stages of a pressure ulcer. Psych Mental Status: mental status grossly normal Assessment & Plan Assessment & Plan (1) Fracture of head of left femur: Comment: status post left hip hemiarthroplasty 02/28/2023 NE Code(s): S72.052A - Unspecified fracture of head of left femur, initial encounter for closed fracture Qualifiers: Encounter type: initial encounter Fracture type: closed Qualified Code(s): S72.052A - Unspecified fracture of head of left femur, initial encounter for closed fracture Plan Mr. Steen is a 68-year-old male who presents in the office today 6 weeks status post left hip hemiarthroplasty, which was performed on 02/28/[address] Do. The patient?s GOVERNOR ASSEMBLER HYDRAULIC worker states he is doing well. The GOVERNOR ASSEMBLER HYDRAULIC would like to discuss medication. She states the incision looks good but is concerned about the wound on the right hip. . Left hip: The patient will work with physical therapy on glute, quad, core strengthening, and posterior precautions. Right hip: He will be referred to wound care to treat the pressure sore. In he mean time we placed a foam dressing over the area for skin break down. I sent in a prescription for Oxycodone 5 mg PO Q8H PRN and celebrex 200 mg PO BID. Follow up will be in 6 weeks, or sooner if needed. X-rays of the left hip which were obtained while in the office today and were reviewed by me, Belgica Pryor PA-C, revealed intact orthopedic hardware with routine healing. Orders: Orders XR pelvis 1-2V Today M25.559 - Pain in unspecified hip Referrals Wound Care Referral L89.210 - Pressure ulcer of right hip, unstageable Medications: New celecoxib (Celebrex) 200 mg PO BID 60 caps 0RF 30 days Changed From oxycodone Partial Fill upon patient request. 5 mg PO Q4H PRN 20 tabs 0RF Pain, Moderate(Pain Scale 4-6) To oxycodone Partial Fill upon patient request. 5 mg PO Q8H PRN 20 tabs 0RF Pain, Moderate(Pain Scale 4-6) Patient Instructions: Scribed for Belgica Pryor PA-C by Hanh Jenkins medical reception specialist, on 04/13/2023 at 12:36 pm, EST. Your attestation Coding Level of Care Code Global (32866) Diagnoses Fracture of head of left femur S72.052A Encounter type: initial encounter Fracture type: closed
== END 2023-04-13 13:18 | disposition home or self-care (01) ==
PROVIDERS: PCP Internal Medicine; Visit Provider Physician Assistant
DX: S72.052A Unspecified fracture of head of left femur, initial encounter for closed fracture (principal)
CPT/HCPCS: 99024

== ENCOUNTER 2023-04-28 08:54 | Outpatient (RCR) | payer MEDICARE, MEDICAID, SELFPAY | END 2023-06-07 12:08 | disposition home or self-care (01) | LOC: HO.WCC 08:54 | PROVIDERS: PCP Internal Medicine; Visit Provider Physician Assistant | DX: Z09 Encounter for follow-up examination after completed treatment for conditions other than malignant neoplasm (principal); Q02 Microcephaly; Z91.81 History of falling; Z79.899 Other long term (current) drug therapy; Z79.891 Long term (current) use of opiate analgesic; Z87.2 Personal history of diseases of the skin and subcutaneous tissue | CPT/HCPCS: 11042; 97597; 99212 ==

== ENCOUNTER 2023-05-26 10:03 | Outpatient (REF) | payer MEDICARE, MEDICAID, SELFPAY ==
--- NOTE | ~2023-05-26 | XR_ITS ---
EXAMINATION: XR PELVIS CLINICAL INFORMATION: Unspecified hip pain COMPARISON: None available. TECHNIQUE: AP view of the pelvis. FINDINGS: There is a total left hip prosthesis in satisfactory alignment. The right hip joint space is normal. No visible acute fracture, dislocation or subluxation seen. The soft tissues are normal. XR/XR pelvis 1-2V IMPRESSION: Total left hip prosthesis in satisfactory alignment. No visible acute fracture or dislocation seen.
== END 2023-05-26 10:04 | disposition home or self-care (01) ==
LOC: HO.HOSX 10:03
PROVIDERS: PCP Internal Medicine; Visit Provider Physician Assistant
DX: S72.052D Unspecified fracture of head of left femur, subsequent encounter for closed fracture with routine healing (principal)
CPT/HCPCS: 72170

== ENCOUNTER 2023-05-26 10:03 | Outpatient (AMB) | payer MEDICARE, MEDICAID, SELFPAY ==
--- NOTE | 2023-05-26 10:26 | A.OFFVIS_ITS ---
Intake Intake Visit Reasons: Post Op - Left hip shayne dos 02/28/23-w/xrays Intake Note: King is a 68 year old male who presents today for his left hip shayne dos, 02/28/23 NE. Patients nurse reports that he is doing well but noticed yesterday that he was doing a little hop when he walked. Allergies Benzodiazepines [BENZODIAZEPINES] Allergy (Unknown, Verified 05/26/23 10:29) UNKNOWN Cephalosporins [CEPHALOSPORINS] Allergy (Unknown, Verified 05/26/23 10:29) UNKNOWN Penicillins [PENICILLINS] Allergy (Unknown, Verified 05/26/23 10:29) UNKNOWN HPI Post Op - Left hip shayne dos 02/28/23-w/xrays HPI Details 68-year-old male who presents in the office today 2 months status post left hip hemiarthroplasty, which was performed on 02/28/[address] Do. The patient?s nurse reports he is doing well but noticed yesterday he was doing a little hop when ambulating. His nurse states he has not been taking the oxycodo ne. Due to insurance issues he has discontinued the Celebrex. She states he is working with physical therapy. She states he walked 2 times around the yard. She states she noticed he was limping a little today and feels he may have over done it yesterday. He has been seen the wound clinic weekly for a pressure sore on the right hip. [facility] Medical History (Reviewed 04/13/23 @ 12:47 by Tosin Mcleod FOR[facility]LY [facility], [facility]) Autistic disorder Cataract Constipation Epilepsy Hyperlipemia Hypertension Impulse control disease Microcephaly Microencephaly OCD (obsessive compulsive disorder) Talipes equinus Vitamin D deficiency Social History Unable to assess alcohol history related to: Unable to respond Patient Tobacco Use Status: Tobacco use Unknown Substance Use Type: Unknown service: No Current occupational status: disabled Review of Systems Const All systems reviewed & are unremarkable except as noted in HPI and below Physical Exam Const General: cooperative, healthy appearing and no acute distress Resp Effort & Inspection: normal respiratory effort and able to speak in complete sentences Cardio Rate: regular rate Peripheral pulses: Peripheral pulses 2+ throughout GI Palpation (GI): Soft to palpation Skin Lesions: no lesions Rashes: no rashes Extrem Other: Left hip: Incision site is well approximated and completely healed. Able to go from sitting to standing with assistance. Good internal and external rotation. Able to perform straight leg raise. Assessment & Plan Assessment & Plan (1) Fracture of head of left femur: Comment: status post left hip hemiarthroplasty 02/28/2023 NE Code(s): S72.052A - Unspecified fracture of head of left femur, initial encounter for closed fracture Qualifiers: Encounter type: initial encounter Fracture type: closed Qualified Code(s): S72.052A - Unspecified fracture of head of left femur, initial encounter for closed fracture Plan Mr. Steen is a 68-year-old male who presents in the office today 2 months status post left hip hemiarthroplasty, which was performed on 02/28/[address] Do. The patient?s nurse reports he is doing well but noticed yesterday he was doing a little hop when ambulating. His nurse states he has not been taking the oxycodone. Due to insurance issues he has discontinued the Celebrex. She states he is working with physical therapy. She states he walked 2 times around the yard. She states she noticed he was limping a little today and feels he may have over done it yesterday. He has been seen the wound clinic weekly for a pressure sore on the right hip. I educated the patient and his nurse that he is able to take OTC Ibuprofen or Tylenol PRN for pain. He can discontinue the use of the Celebrex and Oxycodone at this time. He is cleared to return to the Day Program. Follow up will be in 3 month, or sooner if needed. X-rays of the left hip which were obtained while in the office today and were reviewed by me, Belgica Pryor PA-C, revealed orthopedic hardware intact with routine healing. Orders: Orders XR pelvis 1-2V Today M25.559 - Pain in unspecified hip Patient Instructions: Scribed for Belgica Pryor PA-C by Hanh Jenkins resident medical officer, on 05/26/2023 at 10:17 am, EST. Coding Level of Care Code Global (67501) Diagnoses Fracture of head of left femur S72.052A Encounter type: initial encounter Fracture type: closed
== END 2023-05-26 11:21 | disposition home or self-care (01) ==
PROVIDERS: PCP Internal Medicine; Visit Provider Physician Assistant
DX: S72.052A Unspecified fracture of head of left femur, initial encounter for closed fracture (principal)
CPT/HCPCS: 99024

== ENCOUNTER 2023-06-01 06:47 | Outpatient (REF) | payer MEDICARE, MEDICAID, SELFPAY ==
--- NOTE | ~2023-06-01 | XR_ITS ---
EXAMINATION: XR HIP, LEFT CLINICAL INFORMATION: Pain. COMPARISON: Prior radiographs, most recently 05/26/2023. TECHNIQUE: AP and frog-leg lateral views of the left hip are submitted, together with a frontal upright view of the pelvis.. FINDINGS: Prosthetic components of the left total hip arthroplasty are appropriately aligned without periprosthetic fracture or abnormal lucency. No component migration. The right acetabular joint space is well-maintained. The soft tissue planes are unremarkable. XR/XR hip LT w PEL1V IMPRESSION: Appropriate alignment of the left total hip arthroplasty without surrounding abnormalities.
== END 2023-06-01 06:48 | disposition home or self-care (01) ==
LOC: HO.HOSX 06:47
PROVIDERS: Visit Provider Physician Assistant
DX: S72.052D Unspecified fracture of head of left femur, subsequent encounter for closed fracture with routine healing (principal)
CPT/HCPCS: 73502; 99212

== ENCOUNTER 2023-06-01 11:26 | Outpatient (AMB) | payer MEDICARE, MEDICAID, SELFPAY ==
--- NOTE | 2023-06-01 11:40 | A.OFFVIS_ITS ---
Intake Intake Visit Reasons: ov- left hip shayne dos 02/28/23 Intake Note: King a 68 year old male who presents today with Nurse for a follow up s/p left hip shayne dos 02/28/23. Xrays updated in office. Patient nurse reports he was doing well until recently, he has been limping and having constant pain. No recent injury or fall. Allergies Benzodiazepines [BENZODIAZEPINES] Allergy (Unknown, Verified 06/01/23 11:41) UNKNOWN Cephalosporins [CEPHALOSPORINS] Allergy (Unknown, Verified 06/01/23 11:41) UNKNOWN Penicillins [PENICILLINS] Allergy (Unknown, Verified 06/01/23 11:41) UNKNOWN HPI ov- left hip shayne dos 02/28/23 HPI Details 68-year-old male who returns to the [facility] today with his care nurse for a follow-up of left hip hemiarthroplasty, 02/28/23. His nurse states he was doing well until recently. She states he has not been as ambulatory over the last few weeks and noticed he grimaces when trying to ambulate and ambulates with a limp. His nurse also reports he is unwilling to stand on his legs. He had undergone physical therapy in the past but was discharged from the sessions. He has not had any recent injury or fall but states he did stop taking celebrex a few weeks ago which may be related to the new onset of discomfort. [facility] Medical History Autistic disorder Cataract Constipation Epilepsy Hyperlipemia Hypertension Impulse control disease Microcephaly Microencephaly OCD (obsessive compulsive disorder) Talipes equinus Vitamin D deficiency Social History Unable to assess alcohol history related to: Unable to respond Patient Tobacco Use Status: Tobacco use Unknown Substance Use Type: Unknown service: No Current occupational status: disabled Review of Systems Const All systems reviewed & are unremarkable except as noted in HPI and below Physical Exam Extrem Other: Left hip: Normal to inspection. No pain with ROM or hip flexion. No tenderness over the greater trochanter. ROM of knee performed without pain. NVI. Results Reviewed Results Reviewed: Xrays were obtained in the office today and personally reviewed by me of the left hip show intact prosthesis with no evidence of fracture or dislocation, no evidence of loosening. Satisfactory alignment. Assessment & Plan Assessment & Plan (1) Fracture of head of left femur: Comment: status post left hip hemiarthroplasty 02/28/2023 NE Code(s): S72.052A - Unspecified fracture of head of left femur, initial encounter for closed fracture Qualifiers: Encounter type: initial encounter Fracture type: closed Qualified Code(s): S72.052A - Unspecified fracture of head of left femur, initial encounter for closed fracture Plan I do not see a source of hardware failure or new bony abnormality to cause the source of his pain. It may be due to lack of PT/ HEP and/or d/c of NSAIDS. I did encourage physical therapy to work on gait and strengthening. He was given an order for prescription ibuprofen 800 mg three times a day for 30 days with 3 refills. He does have a scheduled appointment to see us back in the office on September 21 which she will keep a routine follow-up. Orders: Orders XR hip LT w PEL1V Today M25.559 - Pain in unspecified hip Patient Instructions: Scribed for Luz Garcia PA-C, by Oliver Serna certified medical technician assistant, on 06/01/2023 at 11:15 AM EST. I, Luz Garcia PA-C, have personally reviewed and agree with the information entered by the scribe. Coding Level of Care Code Global (68558) Diagnoses Fracture of head of left femur S72.052A Encounter type: initial encounter Fracture type: closed
== END 2023-06-01 12:22 | disposition home or self-care (01) ==
PROVIDERS: PCP Internal Medicine; Visit Provider Physician Assistant
DX: S72.052D Unspecified fracture of head of left femur, subsequent encounter for closed fracture with routine healing (principal); M79.605 Pain in left leg
CPT/HCPCS: 99213

== ENCOUNTER 2023-06-12 08:49 | Outpatient (RCR) | payer MEDICARE, MEDICAID, SELFPAY ==
--- NOTE | 2023-06-12 10:42 | MHC.PT.EP ---
[facility] [place] Office [place] Office [place] Office [address] Jerilyn Mesa [address] [phone] F: [phone] F: [phone] F: [phone] F: [phone] Physical Therapy Plan of Care Date of Evaluation: 06/12/23 Date of Surgery: 02/28/23 Diagnosis: This is a 68 yo male presenting to skilled PT with a script for gait instability, post hip surgery. Assessment: Pt underwent L hip hemiarthroplasty on 02/28/[address] Do. Per inpatient evaluation patient was extremely high risk for infection and dislocation and extra precautions were needed. Patient had an abductor wedge post surgery and education to caretakers on precautions and mobility instructions were emphasized often. Today patient is here with a caregiver who can give very little information on PMHx so most of my history is taken from chart reviews. Pt is a 67-year-old female with a PMH significant for microcephaly, epilepsy, HTN, HLD, atypical autism and OCD who [facility] ED from a prison for evaluation left leg pain. Patient is nonverbal at baseline. Patient apparently had a witnessed fall where the patient fell to the ground on his left side but staff denyed LOC or head strike. Patient was seen limping after his fall and staff thought he had twisted his ankle. After L hip hemiarthoplasty on 02/28 patient was transferred to rehab facility. Caregiver reports that they ended up taking him out of this facility due to lack of good care and he had home PT for 1-2 times a week at his prison. He is here today with a caregiver who is with him 2 days of the week however she is leaving this position soon as well. She reports that after home PT she was not provided any HEP and was instructed on ambulating the patient with hand hold assist to increase his tolerance, balance and strength. She states that he was removed from his celebrex some time ago and his pain increased however they just started a new regiment of this again. Today he is here in an incline wheelchair, he is nonverbal, attempting to self sooth himself with rocking techniques and is unable to follow directions from PT. Caregiver reports that prior to surgery patient was normally tolieting himself, performing ADLs on own and ambulating I without AD. He is refusing to wear a gait belt, use walker or follow directions. When asked what his goals are his caregiver was unable to answer this. At evaluation, patient is inappropriate for skilled outpatient PT. He is nonverbal, unable to follow cues for transfers, MMT, ROM or balance assessment. Due to lack of understanding, nonverbal nature and limited follow through with assessment patient is recommended for home PT instead. I spoke with Jagdish's nurse rifle case repairer who is in agreement and requesting a referral for caretenders instead. Frequency and Duration: The patient will be seen Short Term Goals: Penitentiary Goals: Treatment Plan: Modalities to reduce pain, spasms and effusion. Manual therapy to restore motion and function. Therapeutic exercise to improve strength and flexibility. Neuromuscular re-education for posture and balance. Therapeutic activities to return to functional activities of daily living. Electronically signed by: Kathia Hatch PT Please sign and return to therapist. Thank you for your referral.
--- NOTE | 2023-07-11 13:04 | MHC.PT.DC ---
[facility] [place] Office [place] Office [place] Office [address] Jerilyn Mesa [address] [phone] F: [phone] F: [phone] F: [phone] F: [phone] Physical Therapy Discharge Report Diagnosis: This is a 68 yo male presenting to skilled PT with a script for gait instability, post hip surgery. Date of Surgery: 02/28/23 Date of Evaluation: 06/12/23 Date of Discharge: 07/11/23 Treatments to Date: 1 Cancellations to Date: 0 No Shows to Date: 0 Discharge Status: Discharge Summary: Pt underwent L hip hemiarthroplasty on 02/28/[address] Do. Per inpatient evaluation patient was extremely high risk for infection and dislocation and extra precautions were needed. Patient had an abductor wedge post surgery and education to caretakers on precautions and mobility instructions were emphasized often. Today patient is here with a caregiver who can give very little information on PMHx so most of my history is taken from chart reviews. Pt is a 67-year-old female with a PMH significant for microcephaly, epilepsy, HTN, HLD, atypical autism and OCD who [facility] ED from a jail for evaluation left leg pain. Patient is nonverbal at baseline. Patient apparently had a witnessed fall where the patient fell to the ground on his left side but staff denyed LOC or head strike. Patient was seen limping after his fall and staff thought he had twisted his ankle. After L hip hemiarthoplasty on 02/28 patient was transferred to rehab facility. Caregiver reports that they ended up taking him out of this facility due to lack of good care and he had home PT for 1-2 times a week at his jail. He is here today with a caregiver who is with him 2 days of the week however she is leaving this position soon as well. She reports that after home PT she was not provided any HEP and was instructed on ambulating the patient with hand hold assist to increase his tolerance, balance and strength. She states that he was removed from his celebrex some time ago and his pain increased however they just started a new regiment of this again. Today he is here in an incline wheelchair, he is nonverbal, attempting to self sooth himself with rocking techniques and is unable to follow directions from PT. Caregiver reports that prior to surgery patient was normally tolieting himself, performing ADLs on own and ambulating I without AD. He is refusing to wear a gait belt, use walker or follow directions. When asked what his goals are his caregiver was unable to answer this. At evaluation, patient is inappropriate for skilled outpatient PT. He is nonverbal, unable to follow cues for transfers, MMT, ROM or balance assessment. Due to lack of understanding, nonverbal nature and limited follow through with assessment patient is recommended for home PT instead. I spoke with Jagdish's nurse case coordinator who is in agreement and requesting a referral for caretenders instead. Electronically signed by: Kathia Hatch, PT Please sign and return to therapist. Thank you for your referral.
== END 2023-07-11 13:05 | disposition home or self-care (01) ==
LOC: HO.PTCHIC 08:49
PROVIDERS: PCP Internal Medicine; Visit Provider Physician Assistant
DX: S72.052D Unspecified fracture of head of left femur, subsequent encounter for closed fracture with routine healing (principal)
CPT/HCPCS: 97163

== ENCOUNTER 2023-09-28 09:25 | Outpatient (AMB) | payer MEDICARE, MEDICAID, SELFPAY ==
--- NOTE | 2023-09-28 09:53 | MHC.OFFVIS ---
Intake Intake Visit Reasons: OV-Left hip shayne dos 02/28/23-F/U Intake Note: King is a 68 year old male who presents today with his Nurse for a follow up s/p left hip shayne dos 02/28/23 NE. Allergies Benzodiazepines [BENZODIAZEPINES] Allergy (Unknown, Verified 09/28/23 09:53) UNKNOWN Cephalosporins [CEPHALOSPORINS] Allergy (Unknown, Verified 09/28/23 09:53) UNKNOWN Penicillins [PENICILLINS] Allergy (Unknown, Verified 09/28/23 09:53) UNKNOWN HPI OV-Left hip shayne dos 02/28/23-F/U HPI Details 68-year-old male who presents in the office today 7 months status post left hip hemiarthroplasty, which was performed on 02/28/[address] oD. I last saw the patient in the office on 05/26/2023 when he was transitioned to OTC Ibuprofen and Tylenol PRN for pain. He was also cleared to return to the Day Program. He presents in his wheelchair. A living color worker and physics technical officer from the facility is present with him in the office today. The creamery worker states the out patient physical therapy was not working well for the patient. She states due to this the staff at the living facility has been helping him to walk around and working with him. She states he does not show any signs of pain. The physics technical officer states about one day a week he seems to have some discomfort but nothing overall. [facility] Medical History Autistic disorder Cataract Constipation Epilepsy Hyperlipemia Hypertension Impulse control disease Microcephaly Microencephaly OCD (obsessive compulsive disorder) Talipes equinus Vitamin D deficiency Social History Unable to assess alcohol history related to: Unable to respond Comment: member from [facility] @ bedside Patient Tobacco Use Status: Tobacco use Unknown Substance Use Type: Unknown service: No Current occupational status: disabled Review of Systems Const All systems reviewed & are unremarkable except as noted in HPI and below Physical Exam Const General: cooperative, healthy appearing and no acute distress Resp Effort & Inspection: normal respiratory effort and able to speak in complete sentences Cardio Rate: regular rate Peripheral pulses: Peripheral pulses 2+ throughout GI Palpation (GI): Soft to palpation Skin Lesions: no lesions Rashes: no rashes Extrem Other: Left hip: Normal to inspection. No pain with ROM or hip flexion. No tenderness over the greater trochanter. ROM of knee performed without pain. NVI. Assessment & Plan Assessment & Plan (1) Fracture of head of left femur: Comment: status post left hip hemiarthroplasty 02/28/2023 NE Code(s): S72.052A - Unspecified fracture of head of left femur, initial encounter for closed fracture Qualifiers: Encounter type: initial encounter Fracture type: closed Qualified Code(s): S72.052A - Unspecified fracture of head of left femur, initial encounter for closed fracture Plan Mr. Steen is a 68-year-old male who presents in the office today 7 months status post left hip hemiarthroplasty, which was performed on 02/28/[address] Do. I last saw the patient in the office on 05/26/2023 when he was transitioned to OTC Ibuprofen and Tylenol PRN for pain. He was also cleared to return to the Day Program. He presents in his wheelchair. A living color worker and physics technical officer from the facility is present with him in the office today. The creamery worker states the out patient physical therapy was not working well for the patient. She states due to this the staff at the living facility has been helping him to walk around and working with him. She states he does not show any signs of pain. The physics technical officer states about one day a week he seems to have some discomfort but nothing overall. I discussed signs/symptoms with the office facility staff to watch for with the patient and when to notify the office. We discussed the length of walking and any precautions he still has. His Celebrex will be decreased to 1 time a day for a week and then this may be discontinued. The facility staff stated they would like to continue under the current precautions for the patient. They were given a note stating the patient is cleared to return to the facility program. Follow up will be PRN, or sooner if needed. X-rays of the left pelvis which were obtained while in the office today and were reviewed by me, Belgica Pryor PA-C, revealed good positioning of left hip hemiarthroplasty with no acute fracture or dislocation. Orders: Orders XR pelvis 1-2V Today M25.559 - Pain in unspecified hip CHRISTEL JuarezC XR pelvis 1-2V Today M25.559 - Pain in unspecified hip Chaz Do MD Patient Instructions: Scribed for Belgica Pryor PA-C by Hanh Jenkins medical staff services manager, on 09/28/2023 at 9:35 am, EST. Coding Level of Care Code Est Pt Level 3 (55432) Diagnoses Fracture of head of left femur S72.052A Encounter type: initial encounter Fracture type: closed
== END 2023-09-28 10:10 | disposition home or self-care (01) ==
PROVIDERS: PCP Internal Medicine; Visit Provider Physician Assistant
DX: S72.052A Unspecified fracture of head of left femur, initial encounter for closed fracture (principal)
CPT/HCPCS: 99213

== ENCOUNTER 2023-09-28 10:55 | Outpatient (REF) | payer MEDICARE, MEDICAID, SELFPAY ==
--- NOTE | ~2023-09-28 | XR_ITS ---
EXAMINATION: XR PELVIS CLINICAL INFORMATION: Hip pain. COMPARISON: Prior radiographs, most recently 06/01/2023. TECHNIQUE: AP view of the pelvis. FINDINGS: Prosthetic components of the right total hip arthroplasty are appropriately aligned. No periprosthetic fracture. The right acetabular joint space is well-maintained. There is mild subchondral sclerosis of the right acetabular roof. The right femoral head appears smooth. No fracture or dislocation is seen. There is no foreign body. XR/XR pelvis 1-2V IMPRESSION: 1. An intact left hip total arthroplasty is seen. 2. There is mild osteoarthritic change of the right hip.
== END 2023-09-28 10:56 | disposition home or self-care (01) ==
LOC: HO.HOSX 10:55
PROVIDERS: Visit Provider Physician Assistant
DX: M25.552 Pain in left hip (principal); S72.052A Unspecified fracture of head of left femur, initial encounter for closed fracture; X58.XXXA Exposure to other specified factors, initial encounter; Y93.9 Activity, unspecified; Y92.9 Unspecified place or not applicable; Y99.9 Unspecified external cause status; Z96.643 Presence of artificial hip joint, bilateral
CPT/HCPCS: 72170; 99212

== ENCOUNTER 2023-12-08 08:16 | Emergency (ER) | payer MEDICARE, MEDICAID, SELFPAY ==
--- NOTE | 2023-12-08 08:23 | ED_ITS ---
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 All history today was obtained by RAILRO[employer] SUPER[employer] and long-term staff member present at bedside. While staff was periodicals library assistant patient with changing his clothes this morning, the patient reached for something out in front of him and began to fall forward, hitting the top of his head on the windowsill. Fall was witnessed by group staff who caught him mid-fall. He did not fall all the way to the ground. He did not lose consciousness. No thinners. Patient has been acting appropriately since head strike per group staff. No behavioral changes. No vomiting or confusion. alf staff is not aware if patient's tetanus is UTD or not. MD complaint: fall Onset (ago): minute(s) Fall from: standing Fall witnessed: yes, by living facility staff Place fall occurred: [facility] Loss of consciousness: none Prolonged down time: no Location of injury: head Severity: mild Related Data Home Medications Medication Instructions Recorded Confirmed acetaminophen 325 mg tablet 650 mg PO Q4H PRN Pain 02/26/23 02/26/23 amlodipine 10 mg tablet 10 mg PO DAILY 02/26/23 02/26/23 bacitracin zinc 500 unit-polymyxin 1 appl topical Q12H PRN skin 02/26/23 02/26/23 B 10,000 unit/gram topical breakdown ointment (Polysporin) benzonatate 100 mg capsule 100 mg PO TID PRN Cough 02/26/23 02/26/23 bisacodyl 10 mg rectal suppository 10 mg [place] DAILY PRN Constipation 02/26/23 02/26/23 calcium carbonate 200 mg calcium 500 mg PO TID 02/26/23 02/26/23 (500 mg) chewable tablet (Antacid (calcium carbonate)) carbamide peroxide 6.5 % ear drops See Rx Instructions .Route .COMPLEX 02/26/23 02/26/23 (Ear Drops (carbamide peroxide)) cetirizine 10 mg tablet 10 mg PO DAILY 02/26/23 02/26/23 citalopram 10 mg tablet 10 mg PO DAILY 02/26/23 02/26/23 docusate sodium 100 mg capsule 100 mg PO BID 02/26/23 02/26/23 fluoride (sodium) 1.1 % dental gel 1 appl PO BEDTIME 02/26/23 02/26/23 hydroxyzine pamoate 25 mg capsule 25 mg PO DAILY PRN Anxiety 02/26/23 02/26/23 magnesium hydroxide 400 mg/5 mL 30 ml PO BEDTIME PRN Constipation 02/26/23 02/26/23 oral suspension (Milk of Magnesia) multivitamin with folic acid 400 1 tab PO DAILY 02/26/23 02/26/23 mcg tablet (Thera) pravastatin 40 mg tablet 40 mg PO BEDTIME 02/26/23 02/26/23 pseudoephedrine HCl 30 mg tablet 30 mg PO Q6H PRN Allergy Symptoms 02/26/23 02/26/23 (Suphedrin) risperidone 0.5 mg tablet 0.5 mg PO DAILY PRN Anxiety 02/26/23 02/26/23 risperidone 1 mg tablet 1 mg PO BID 02/26/23 02/26/23 sennosides 8.6 mg tablet (senna) 8.6 mg PO BEDTIME PRN Constipation 02/26/23 02/26/23 sodium chloride 0.65 % nasal spray 1 spray intranasal BID PRN dryness 02/26/23 02/26/23 aerosol (Saline Nasal) tolnaftate 1 % topical spray 2 spray topical BID PRN groin rash 02/26/23 02/26/23 powder (Tinactin) Previous Rx's Medication Instructions Recorded oxycodone 10 mg tablet,crush 10 mg PO BID #20 tabs 03/02/23 resistant,extended release 12 hr (OxyContin) FOAM DRESSING #20 ea 04/14/23 ibuprofen 800 mg tablet 800 mg PO Q8H PRN pain 30 days #90 06/01/23 tabs celecoxib 200 mg capsule 200 mg PO BID #60 caps 10/30/23 Allergies Allergy/AdvReac Type Severity Reaction Status Date / Time Benzodiazepines Allergy Unknown UNKNOWN Verified 09/28/23 09:53 [BENZODIAZEPINES] Cephalosporins Allergy Unknown UNKNOWN Verified 09/28/23 09:53 [CEPHALOSPORINS] Penicillins [PENICILLINS] Allergy Unknown UNKNOWN Verified 09/28/23 09:53 Review of Systems Review of Systems: Yes Unobtainable due to mental condition (nonverbal) [facility] Past Medical History Attestation statement: The following information was validated with the patient. Source: old records reviewed and nursing notes reviewed Medical History Microcephaly Microencephaly Vitamin D deficiency Cataract Impulse control disease OCD (obsessive compulsive disorder) Autistic disorder Hyperlipemia Talipes equinus Constipation Hypertension Epilepsy Social History Social History Unable to assess alcohol history related to: Unable to respond Alcohol intake: never Comment: member from long-term @ bedside Patient Tobacco Use Status: Tobacco use Unknown Smoked in Last 30 Days: No Use of substances other than those prescribed or required for medical reasons: No Substance Use Type: Unknown Advance Directives: No service: No Current occupational status: disabled Physical Exam Vital Signs: Vital Signs: Last Vital Signs Pulse 78 12/08/23 12:00 Resp 18 12/08/23 12:00 BP 115/68 12/08/23 12:00 Pulse Ox 98 12/08/23 12:00 O2 Del Method Room Air 12/08/23 12:00 BMI result Body Mass Index 23.8 Vital signs stable. Const: General: cooperative, healthy appearing, comfortable and no acute distress Limitations: language barrier (nonverbal) HEENT: Other: + microencephalic + 2 cm linear scalp laceration noted to the top of head. no FB. no active bleeding. ttp. no palpable skull fracture, hematoma or fb. no involvement of deeper structures. Ears: hearing grossly normal bilaterally General nose exam: Normal external nose present Face and sinus: Yes normal facial exam Eyes: Other: EOMs intact without entrapment General: appearance normal, both eyes and all related structures Conjunctivae: conjunctivae normal Sclerae: sclerae normal Pupils: Equal, round and reactive pupils present Neck: Other: + no midline cervical spinous tenderness or step off deformity + does not present in cervical colar Neck: Yes normal visual inspection and Yes full ROM Chest: Chest palpation & inspection: normal inspection of the chest Resp: Effort & Inspection: normal respiratory effort Auscultation: clear to auscultation bilaterally Cardio: Rate: regular rate Rhythm: regular rhythm GI: Inspection: Yes normal to inspection Back/Spine/Pelvis: Other: + No midline spinous tenderness or step off deformity. No paraspinal muscle tenderness. Skin: General skin exam: no rashes or lesions noted Neuro: Other: + hypermobile Cranial nerves: Yes Equal, round and reactive pupils present Motor exam (neuro): 5/5 motor strength present throughout Extrem: General: Yes normal to inspection Course Course Course Narrative: 0845-- Per long-term staff, patient is not likely to tolerate CT scan. On review of previous visits, patient has required sedation for head imaging in the past. Will attempt to administer double dose of his daily risperidone and hydroxyzine in an attempt to calm patient for CT head/brain to r/o skull fracture and ICH. Discussed the need for possible staple repair of laceration and group staff are agreeable with this. Will attempt while patent sedated. 1125-- Patient slightly drowsy after risperidone and hydroxyzine administration, however awake and alert, sitting up in bed. First attempt at CT scan unsuccessful d/t patient's excessive moving. Case discussed with my attending physician Dr. Delgado who recommends 5 mg of Zyprexa followed by a reattempt at imaging. 1236-- Re-attempt at imaging post zyprexa administration unsuccessful. Discussed case with Dr. Baum who has also evaluated patient. Given that patient fell from standing height without LOC and has been acting appropriately per long-term staff, the risk of having an intracranial bleed or trauma is very low. We discussed risks and benefits of sedating the patient to obtain imaging vs not obtaining imaging at this time. Group staff member along with [employer]RO[employer] SU[employer] at bedside verbalizes understanding. Dr. Baum is in agreement with withholding imaging at this time. As patient will not be able to tolerate suture or staple repair, will attempt to glue laceration closed. Tetanus will be updated 1330-- TDAP administered. Laceration successfully closed with dermabond. No complications. Patient tolerated it well. Bleeding controlled. Patient will be transferred back to [facility] with RAILRO[employer]. Patient has remained stable throughout ED visit today. I discussed worrisome signs and symptoms/ when to return to the ED with the RAILRO[employer] SU[employer]. All questions answered at this time. Patient is stable for discharge. Medications Administered Discontinued Medications Generic Name Dose Route Start Last Admin Trade Name Jacob PRN Reason Stop Dose Admin Diphtheria/Tetanus/Acell Pertussis 0.5 ml 12/08/23 12:49 12/08/23 13:23 Diphth,Pertus(Acell),Tet Adult 0.5 Ml Syringe IM 12/08/23 12:50 0.5 ml .ONCE ONE Administration Hydroxyzine HCl 25 mg 12/08/23 08:57 12/08/23 09:15 Hydroxyzine Hcl 25 Mg Tablet PO 12/08/23 08:58 25 mg ONCE ONE Administration Olanzapine 5 mg 12/08/23 11:24 12/08/23 11:55 Olanzapine 5 Mg Tablet PO 12/08/23 11:25 5 mg ONCE ONE Administration Risperidone 1 mg 12/08/23 08:57 12/08/23 09:15 Risperidone 1 Mg Tablet PO 12/08/23 08:58 1 mg ONCE ONE Administration Procedures Laceration Laceration 1: Site: scalp Size (cm): 2 Description: linear Depth: simple, single layer Pre-repair: wound explored, irrigated extensively, deep structures intact and extensive debridement Skin layer closed with: other (dermabond) Medical Decision Making Medical Decision Making MDM Narrative: 68 year old nonverbal male with pmhx significant for microcephaly, epilepsy, hypertension, HDL, OCD, atypical autism presents to the ED today for evaluation of scalp laceration s/p mechanical fall occurring this morning 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 Patient is slightly hypertensive. He is unable to tolerate or cooperate with pulse ox. Unable to obtain pulse or temperature as well. He is well-appearing and mental status is at baseline. Per nursing staff, patient is acting appropriately. No behavioral changes. In no acute distress. Head microcephalic. There is a 2 cm linear scalp laceration noted to top of his head. No active bleeding. Will require repair. No palpable skull fracture or deformity. PERRLA. EOMs intact without entrapment. No other trauma or injuries noted to body. Differential diagnosis includes scalp laceration, ICH. Unlikely skull fracture, blowout fracture, CVA, dissection, cellulitis. Plan for imaging and laceration repair. Differential Diagnosis Differential Diagnoses: The differential diagnosis associated with the presentation includes As above Admission/Observation Consideration of admission/observation: Escalation of care including admission/observation considered Independent Historian Clinical information obtained from an independent historian. History obtained from or confirmed by: EMS and Other (alf staff, RAILRO[employer] SUPER[employer]) External Record Review External record reviewed: Inpatient record, Office record, Outpatient record, Prior outpatient labs, Prior outpatient radiology, Primary care record and Outside ED record Prescription Management I considered prescription management with: Pain Medication Chronic Conditions Patient?s care impacted by: Other (autism, impulse control disease) Social Determinants Patient?s care significantly limited by Social Determinants of Health including: Other Social Determinant of Health Critical Care Time Critical Care Time Critical Care Time: Yes Total Critical Care Time: 35 Attestation: Critical care time in the amount of 35 minutes has been provided to the patient in terms of direct patient care, frequent reevaluation, review and interpretation of medical data and results, and management of potentially life- threatening conditions. This is all outside of any medical procedures. Discharge Plan Discharge Clinical Impression: Laceration of scalp, Fall against object, Concussion Patient Disposition: Home, Self-Care Additional Instructions: Your tetanus vaccination was updated today. The laceration on your scalp was repaired with glue today. Keep the area clean dry and intact with the next 48 hours. If the area opens and bleeding is uncontrollable, please return to the ED. Please return to the ED for new or worsening symptoms as discussed. Prescriptions: No Action (DME) FOAM DRESSING See Rx Instructions .Route .MEDSUPPLY Qty: 20 3RF Rx Instructions: As directed celecoxib 200 mg capsule 200 mg PO BID Qty: 60 3RF sennosides [senna] 8.6 mg Tablet 8.6 mg PO BEDTIME PRN (Reason: Constipation) acetaminophen 325 mg tablet 650 mg PO Q4H PRN (Reason: Pain) cetirizine 10 mg tablet 10 mg PO DAILY Rx Instructions: HOLD WHEN HYDROXYZINE IN USE; IN USE DURING DECEMBER-JUNE pravastatin 40 mg tablet 40 mg PO BEDTIME citalopram 10 mg tablet 10 mg PO DAILY magnesium hydroxide [Milk of Magnesia] 400 mg/5 mL suspension 30 ml PO BEDTIME PRN (Reason: Constipation) amlodipine 10 mg tablet 10 mg PO DAILY benzonatate 100 mg Capsule 100 mg PO TID PRN (Reason: Cough) bisacodyl 10 mg suppository 10 mg [place] DAILY PRN (Reason: Constipation) Rx Instructions: After 8 hrs of MOM with no BM calcium carbonate [Antacid (calcium carbonate)] 200 mg calcium (500 mg) tablet,chewable 500 mg PO TID Ear Drops (carbamide peroxide) 6.5 % drops See Rx Instructions .ROUTE .COMPLEX Rx Instructions: 4 drps into both ears twice daily for 5 days monthly docusate sodium 100 mg capsule 100 mg PO BID pseudoephedrine HCl [Suphedrin] 30 mg Tablet 30 mg PO Q6H PRN (Reason: Allergy Symptoms) Rx Instructions: DNExceed 4 doses/24h risperidone 1 mg tablet 1 mg PO BID fluoride (sodium) 1.1 % gel 1 appl PO BEDTIME Rx Instructions: brush along gum line tolnaftate [Tinactin] 1 % Aerosol Powder 2 spray TOPICAL BID PRN (Reason: groin rash) risperidone 0.5 mg tablet 0.5 mg PO DAILY PRN (Reason: Anxiety) hydroxyzine pamoate 25 mg capsule 25 mg PO DAILY PRN (Reason: Anxiety) Rx Instructions: HOLD CETIRIZINE WHEN IN USE Saline Nasal 0.65 % Aerosol,Hollister 1 spray INTRANASAL BID PRN (Reason: dryness) bacitracin zinc-polymyxin B [Polysporin] 500-10,000 unit/gram Ointment 1 appl TOPICAL Q12H PRN (Reason: skin breakdown) multivitamin with folic acid [Thera] 400 mcg tablet 1 tab PO DAILY oxycodone [OxyContin] 10 mg Tablet,Oral Only,Ext.Rel.12 Hr 10 mg PO BID Qty: 20 0RF Rx Instructions: Partial Fill upon patient request. ibuprofen 800 mg tablet 800 mg PO Q8H PRN (Reason: pain) 30 Days Qty: 90 3RF Discharge Date/Time: 12/08/23 14:27
[2023-12-08 08:24] VITALS: BP 116/62; BP 143/55; PULSE 90; RESP 18; BMI 23.8
[2023-12-08 08:31] VITALS: RESP 18
[2023-12-08] MEDS: risperiDONE 1 MG TABLET PO (09:15)
[2023-12-08] MEDS: hydrOXYzine HCL 25 MG TABLET PO (09:15)
[2023-12-08] MEDS: OLANZapine 5 MG TABLET PO (11:55)
[2023-12-08 12:00] VITALS: BP 115/68; PULSE 78; RESP 18; O2SAT 98
[2023-12-08] MEDS: Diphth,Pertus(ACell),Tet Adult 0.5 ML SYRINGE IM (13:23)
== END 2023-12-08 14:27 | disposition home or self-care (01) ==
PROVIDERS: Emergency Provider Emergency Medicine Emergency Medical Services; PCP Internal Medicine
DX: S01.01XA Laceration without foreign body of scalp, initial encounter (principal); S06.0XAA Concussion with loss of consciousness status unknown, initial encounter; G40.909 Epilepsy, unspecified, not intractable, without status epilepticus; F84.9 Pervasive developmental disorder, unspecified; I10 Essential (primary) hypertension; Q02 Microcephaly; W01.198A Fall on same level from slipping, tripping and stumbling with subsequent striking against other object, initial encounter; Y93.89 Activity, other specified; Y92.129 Unspecified place in nursing home as the place of occurrence of the external cause; Y99.9 Unspecified external cause status
CPT/HCPCS: 12011; 90471; 90715; 99284

== ENCOUNTER 2024-01-26 08:40 | Outpatient (REF) | payer MEDICARE, MEDICAID, SELFPAY ==
--- NOTE | ~2024-01-26 | XR_ITS ---
EXAMINATION: XR PELVIS CLINICAL INFORMATION: Pain in hip COMPARISON: X-ray the pelvis September 2023 TECHNIQUE: AP view of the pelvis. FINDINGS: Postoperative changes related to hemiarthroplasty component unchanged without periprosthetic fracture or suspicious area of lucency. Persistent joint space narrowing unchanged. Remaining bone and joints in the pelvis are normal. XR/XR pelvis 1-2V IMPRESSION: Stable hemiarthroplasty of the left hip. Joint space narrowing consistent with arthrosis unchanged.
== END 2024-01-26 08:41 | disposition home or self-care (01) ==
LOC: HO.HOSX 08:40
PROVIDERS: Visit Provider Physician Assistant
DX: Z13.89 Encounter for screening for other disorder (principal)
CPT/HCPCS: 72170

== ENCOUNTER 2024-01-26 13:00 | Outpatient (AMB) | payer MEDICARE, MEDICAID, SELFPAY ==
[2024-01-26 13:02] VITALS: BMI 23.6
--- NOTE | 2024-01-26 13:02 | MHC.OFFVIS ---
Vital Signs 01/26/24 13:02 Height 5 ft 5 in Weight 142 lb BMI 23.6 Intake Visit Reasons: OV-Left hip shayne dos 02/28/23-F/U Intake Note: King is a 68 year old male who presents today with his Nurse for a follow up s/p left hip shayne dos 02/28/23 [place]. No hx of injury to the right hip. Nurses expresses that he was leaning on his left side. She wants to make sure that his x rays look okay and to see if Allergies Benzodiazepines [BENZODIAZEPINES] Allergy (Unknown, Verified 01/26/24 13:22) UNKNOWN Cephalosporins [CEPHALOSPORINS] Allergy (Unknown, Verified 01/26/24 13:22) UNKNOWN Penicillins [PENICILLINS] Allergy (Unknown, Verified 01/26/24 13:22) UNKNOWN HPI HPI OV-Left hip shayne dos 02/28/23-F/U: Details: 68-year-old male who presents in the office today 11 months status post left hip hemiarthroplasty, which was performed on 02/28/[address] Do. I last saw the patient in the office on 09/28/2023 when we discussed signs/symptoms with the office facility staff to watch for with the patient and when to notify the office. We discussed the length of walking and any precautions he still has. His Celebrex was decreased to 1 time a day for a week and then discontinued. They were given a note stating the patient is cleared to return to the facility program. While in the office today he reports no injury to the left hip. The nurse with him expresses that he was leaning on the left side. ON LICENSE OF [facility] Medical History Microcephaly Microencephaly Vitamin D deficiency Cataract Impulse control disease OCD (obsessive compulsive disorder) Autistic disorder Hyperlipemia Talipes equinus Constipation Hypertension Epilepsy Social History Unable to assess alcohol history related to: Unable to respond Alcohol intake: never Comment: member from [facility] @ bedside Patient Tobacco Use Status: Tobacco use Unknown Substance Use Type: Unknown service: No Current occupational status: disabled Review of Systems Const All systems reviewed & are unremarkable except as noted in HPI and below Physical Exam Vital Signs: BMI result Body Mass Index 23.6 Const General: cooperative, healthy appearing and no acute distress Resp Effort & Inspection: normal respiratory effort and able to speak in complete sentences Cardio Rate: regular rate Peripheral pulses: Peripheral pulses 2+ throughout GI Palpation (GI): Soft to palpation Skin Lesions: no lesions Rashes: no rashes Extrem Other: Left hip: Normal to inspection. No ecchymosis, erythema, or edema. Incision site is well approximated and healed. No signs of infection. Good internal and external rotation. Able to demonstrate a straight leg raise. Patient did ambulate in the office with the assistance of the staff. He walks on his toes on the left side. Poor balance. After a few steps he is able to plant his left foot more firmly on the ground. This is his baseline prior to the surgery. Assessment & Plan Assessment & Plan (1) Fracture of head of left femur: Comment: status post left hip hemiarthroplasty 02/28/2023 [place] Code(s): S72.052A - Unspecified fracture of head of left femur, initial encounter for closed fracture Category: Medical Qualifiers: Encounter type: initial encounter Fracture type: closed Qualified Code(s): S72.052A - Unspecified fracture of head of left femur, initial encounter for closed fracture Plan Mr. Steen is a 68-year-old male who presents in the office today 11 months status post left hip hemiarthroplasty, which was performed on 02/28/[address] Do. I last saw the patient in the office on 09/28/2023 when we discussed signs/symptoms with the office facility staff to watch for with the patient and when to notify the office. We discussed the length of walking and any precautions he still has. His Celebrex was decreased to 1 time a day for a week and then discontinued. They were given a note stating the patient is cleared to return to the facility program. While in the office today he reports no injury to the left hip. The nurse with him expresses that he was leaning on the left side. The facility in which he is staying at has two members accompanying him at today's visit and are requesting that physical therapy/VNA services to come to the home to help him with ambulating. He was ambulating prior to the hip fracture and since then has been ambulating less and is more wheelchair bound. I am in agreement with this. The patient would benefit from physical therapy services for overall conditioning and gait training, so therefore a referral has been placed. Follow up will be PRN, or sooner if needed. X-rays of the left hip which were obtained while in the office today and were reviewed by me, Belgica Pryor PA-C, revealed intact orthopedic hardware with routine healing. No evidence of loosening or periprosthetic fracture. Orders: Orders XR pelvis 1-2V Today M25.559 - Pain in unspecified hip [facility]errals [facility] Referral S72.052A - Unspecified fracture of head of left femur, initial encounter for closed fracture Patient Instructions: Scribed by Hanh Jenkins outside medical sales representative, for Belgica Pryor PA-C on 01/26/2024 at 1:07 pm, EST. Coding Level of Care Code Est Pt Level 3 (76782) Diagnoses Fracture of head of left femur S72.052A Encounter type: initial encounter Fracture type: closed
== END 2024-01-26 13:37 | disposition home or self-care (01) ==
PROVIDERS: PCP Internal Medicine; Visit Provider Physician Assistant
DX: S72.052A Unspecified fracture of head of left femur, initial encounter for closed fracture (principal)
CPT/HCPCS: 99213

== ENCOUNTER 2024-01-26 18:21 | Emergency (ER) | payer MEDICARE, MEDICAID, SELFPAY ==
--- NOTE | ~2024-01-26 | XR_ITS ---
EXAMINATION: XR FOOT, LEFT CLINICAL INFORMATION: Walking funny. Swelling. COMPARISON: None available. TECHNIQUE: AP, lateral, and oblique views of the left foot. XR/XR foot LT min 3V FINDINGS / IMPRESSION: There is no fracture or dislocation. Joint spaces are well preserved. The regional soft tissue is normal in appearance.
--- NOTE | ~2024-01-26 | XR_ITS ---
EXAMINATION: XR ANKLE, LEFT CLINICAL INFORMATION: Swelling and ecchymosis. COMPARISON: None available. TECHNIQUE: Frontal view of the left ankle. XR/XR ankle LT 2V FINDINGS/IMPRESSION: The examination is limited as only a single frontal radiograph is presented for evaluation. No fracture is seen. The ankle mortise appears maintained. There is soft tissue swelling. Recommend repeat imaging with frontal, lateral, and oblique projections.
[2024-01-26 18:29] VITALS: BP 143/57; PULSE 91; RESP 16; TEMP 36.3; BMI 21.3
--- NOTE | 2024-01-26 18:29 | ED_ITS ---
HPI - General Adult General Chief complaint: Extremity Problem Stated complaint: swollen foot Time Seen by Provider: 01/26/24 19:10 Source: other ([facility] member) Mode of arrival: wheelchair Limitations: other (Patient is nonverbal) History of Present Illness HPI narrative: 68 year old nonverbal male with pmhx significant for microcephaly, epilepsy, hypertension, HDL, OCD, atypical autism presents to the ED today for evaluation of left ankle and foot swelling with no known trauma and difficulty walking. Information came from the [facility] staff member that is with the patient. The patient did have a left hip fracture with hemiarthroplasty performed on 02/28/2023. The [facility] was concerned that his difficulty walking was related to his hip and he had an orthopedic appointment today and was able to ambulate in the office but was walking on the toes of his left foot and leaning to the left. Staff members at the [facility] noted that his left ankle was bruised and swollen therefore they brought him to the emergency department for evaluation. Related Data Home Medications ?Medication ?Instructions ?Recorded ?Confirmed acetaminophen 325 mg tablet 650 mg PO Q4H PRN Pain 02/26/23 02/26/23 amlodipine 10 mg tablet 10 mg PO DAILY 02/26/23 02/26/23 bacitracin zinc 500 unit-polymyxin 1 appl topical Q12H PRN skin 02/26/2302/26 B 10,000 unit/gram topical breakdown ointment (Polysporin) benzonatate 100 mg capsule 100 mg PO TID PRN Cough 02/26/23 02/26/23 bisacodyl 10 mg rectal suppository 10 mg KS DAILY PRN Constipation 02/26/23 02/26/23 calcium carbonate (Antacid 500 mg PO TID 02/26/23 02/26/23 (calcium carbonate)) carbamide peroxide 6.5 % ear drops See Rx Instructions .Route .COMPLEX 02/26/23 02/26/23 (Ear Drops (carbamide peroxide)) cetirizine 10 mg tablet 10 mg PO DAILY 02/26/23 02/26/23 citalopram 10 mg tablet 10 mg PO DAILY 02/26/23 02/26/23 docusate sodium 100 mg capsule 100 mg PO BID 02/26/23 02/26/23 fluoride (sodium) 1.1 % dental gel 1 appl PO BEDTIME 02/26/23 02/26/23 hydroxyzine pamoate 25 mg capsule 25 mg PO DAILY PRN Anxiety 02/26/23 02/26/23 magnesium hydroxide 400 mg/5 mL 30 ml PO BEDTIME PRN Constipation 02/26/23 02/26/23 oral suspension (Milk of Magnesia) multivitamin with folic acid 400 1 tab PO DAILY 02/26/23 02/26/23 mcg tablet (Thera) pravastatin 40 mg tablet 40 mg PO BEDTIME 02/26/23 02/26/23 pseudoephedrine HCl 30 mg tablet 30 mg PO Q6H PRN Allergy Symptoms 02/26/23 02/26/23 (Suphedrin) risperidone 0.5 mg tablet 0.5 mg PO DAILY PRN Anxiety 02/26/23 02/26/23 risperidone 1 mg tablet 1 mg PO BID 02/26/23 02/26/23 sennosides 8.6 mg tablet (senna) 8.6 mg PO BEDTIME PRN Constipation 02/26/23 02/26/23 sodium chloride 0.65 % nasal spray 1 spray intranasal BID PRN dryness 02/26/23 02/26/23 aerosol (Saline Nasal) tolnaftate 1 % topical spray 2 spray topical BID PRN groin rash 02/26/23 02/26/23 powder (Tinactin) Previous Rx's ?Medication ?Instructions ?Recorded oxycodone 10 mg tablet,crush 10 mg PO BID #20 tabs 03/02/23 resistant,extended release 12 hr (OxyContin) FOAM DRESSING #20 ea 04/14/23 ibuprofen 800 mg tablet 800 mg PO Q8H PRN pain 30 days #90 06/01/23 tabs celecoxib 200 mg capsule 200 mg PO BID #60 caps 10/30/23 acetaminophen 500 mg tablet 1,000 mg (2 x 500 mg) PO Q6H PRN 01/26/24 (Tylenol Extra Strength) fever or pain #20 tabs prednisone 20 mg tablet 60 mg (3 x 20 mg) PO DAILY 5 days 01/26/24 #15 tabs Allergies Allergy/AdvReac Type Severity Reaction Status Date / Time Benzodiazepines Allergy Unknown UNKNOWN Verified 01/26/24 18:35 [BENZODIAZEPINES] Cephalosporins Allergy Unknown UNKNOWN Verified 01/26/24 18:35 [CEPHALOSPORINS] Penicillins [PENICILLINS] Allergy Unknown UNKNOWN Verified 01/26/24 18:35 [facility] Past Medical History [facility] Narrative: Social history: The patient is in a [facility]. There is a [facility] staff member here with him that knows him well. Medical History Microcephaly Microencephaly Vitamin D deficiency Cataract Impulse control disease OCD (obsessive compulsive disorder) Autistic disorder Hyperlipemia Talipes equinus Constipation Hypertension Epilepsy Social History Social History Unable to assess alcohol history related to: Unable to respond Alcohol intake: never Comment: member from [facility] @ bedside Patient Tobacco Use Status: Tobacco use Unknown Substance Use Type: Unknown Advance Directives: No Advance Directives Information Provided: No service: No Current occupational status: disabled Physical Exam ED Vital Signs: Vital Signs - 24 hr 01/26/24 18:29 Temperature 97.3 F Pulse Rate 91 Respiratory Rate 16 Blood Pressure 143/57 H BMI result Body Mass Index 21.3 Vital signs were normal Exam: General: Patient is awake, alert, nonverbal, sitting in a wheelchair. Extremities: Patient has left lower extremity does reveal soft tissue swelling of the ankle and foot compared to the right side. Patient does seem to have significant tenderness with palpation over the medial lateral malleolus and there were some slight increased warmth to the left ankle compared to the right. He has mild tenderness with palpation over the left 1st MTP joint however this joint is not swollen or erythematous. His extremities neurovascular intact. Seems to have no pain with rotating his hip joint Course Course Course Narrative: This is a rapid medical exam performed by Elly Au NP: Additional HPI, ROS, PE not included below will be deferred to primary provider. Patient is a 67-year-old male with history of microcephaly, epilepsy, HTN, HLD, OCD, and atypical autism presenting to ED with [facility] staff who report that patient has been walking funny for over a week. Staff took him to an ortho appt today and had a hip evaluation which was normal. Staff on second shift tonight noticed left foot swelling and bruising. Unable to fully visualize ankle/foot in triage. Plan: x-ray Medications Administered Discontinued Medications Generic Name Dose Route Start Last Admin Trade Name Freq PRN Reason Stop Dose Admin Acetaminophen 975 mg 01/26/24 19:32 01/26/24 20:06 Acetaminophen 325 Mg Tablet PO 01/26/24 19:33 975 mg ONCE ONE Administration Prednisone 60 mg 01/26/24 19:32 01/26/24 20:06 Prednisone 20 Mg Tablet PO 01/26/24 19:33 60 mg ONCE ONE Administration Medical Decision Making Medical Decision Making MDM Narrative: 68 year old nonverbal male with pmhx significant for microcephaly, epilepsy, hypertension, HDL, OCD, atypical autism, 11 months status post left hip hemiarthroplasty presents to the ED today for evaluation of left ankle and foot swelling with no known trauma and difficulty walking. Patient was seen at the orthopedic office today and had a left hip x-ray, he was able to ambulated the office but was walking on his toes of his left foot and seemed to be leaning to the left. Vital signs were normal. Exam did reveal increased warmth, slight erythema over the left ankle joint with significant tenderness palpation over the lateral and medial malleolus also with some slight tenderness palpation over the left 1st MTP joint but no erythema or increased warmth of this joint Differential diagnosis: ?Includes but is not limited to ankle fracture, ankle sprain, foot fracture, foot sprain, gout, inflammatory arthritis Following evaluation was ordered: X-ray of the left foot and left ankle Patient was initially treated with the following:Prednisone 60 mg orally, Tylenol 975 mg orally Course: 19:44 My interpretation of the patient's left foot, left ankle and left hip x-rays are as follows: Left foot and ankle x-ray consistent with arthritic changes but no acute fracture. Left hip x-ray is consistent with left hip hemiarthroplasty with no acute fracture. Patient's findings are consistent with inflammatory arthritis/gout. Patient was given prednisone and Tylenol here in the emergency department. He was prescribed prednisone 60 mg once a day for 5 days and Tylenol 1000 mg every 6 hours as needed for pain. The [facility] staff member was given printed and verbal instructions the patient was discharged back to his [facility]. Independent Interpretation I performed an independent interpretation of an: Plain X-Ray Interpretation: My interpretation of the patient's left ankle and foot x-ray is as follows: No acute fractures, arthritic changes. My interpretation of the patient's left hip x-ray done in the orthopedic office today is as follows: Left hemiarthroplasty with no acute fractures, prosthesis looks normal and is in appropriate position Radiology Impression Discussion of test interpretation with radiology: I have reviewed the radiologist's reading. Independent Historian Clinical information obtained from an independent historian. History obtained from or confirmed by: Other ([facility] members) External Record Review External record reviewed: Inpatient record and Office record Prescription Management I considered prescription management with: Pain Medication and Other (Anti- inflammatory steroid-prednisone) Discharge Plan Discharge Clinical Impression: Acute gout of left ankle Patient Disposition: Home, Self-Care Instructions: Gout (ED) Additional Instructions: The x-rays of your ankle and foot are consistent with arthritis and there was no broken bone seen by either me or the radiologist. Your left ankle is slightly warm to the touch, red, swollen and very tender. This is consistent with an inflammatory arthritis and possibly gout. Take prednisone 20 mg pills, 3 pills once a day for 5 days. While you ?are taking prednisone, do not take any NSAIDs (Motrin, Advil, ibuprofen, Aleve, naproxen). Take Tylenol (acetaminophen) 500 mg pills, 2 pills every 6 hours as needed for pain or fever. Follow-up with your doctor in 2 days. Please return to the emergency department if your symptoms get worse or if you develop any symptoms that are concerning to you. Prescriptions: New prednisone 20 mg tablet 60 mg PO DAILY 5 Days Qty: 15 0RF acetaminophen [Tylenol Extra Strength] 500 mg tablet 1,000 mg PO Q6H PRN (Reason: fever or pain) Qty: 20 0RF No Action (DME) FOAM DRESSING See Rx Instructions .Route .MEDSUPPLY Qty: 20 3RF Rx Instructions: As directed celecoxib 200 mg capsule 200 mg PO BID Qty: 60 3RF sennosides [senna] 8.6 mg Tablet 8.6 mg PO BEDTIME PRN (Reason: Constipation) acetaminophen 325 mg tablet 650 mg PO Q4H PRN (Reason: Pain) cetirizine 10 mg tablet 10 mg PO DAILY Rx Instructions: HOLD WHEN HYDROXYZINE IN USE; IN USE DURING DECEMBER-JUNE pravastatin 40 mg tablet 40 mg PO BEDTIME citalopram 10 mg tablet 10 mg PO DAILY magnesium hydroxide [Milk of Magnesia] 400 mg/5 mL suspension 30 ml PO BEDTIME PRN (Reason: Constipation) amlodipine 10 mg tablet 10 mg PO DAILY benzonatate 100 mg Capsule 100 mg PO TID PRN (Reason: Cough) bisacodyl 10 mg suppository 10 mg KS DAILY PRN (Reason: Constipation) Rx Instructions: After 8 hrs of MOM with no BM calcium carbonate [Antacid (calcium carbonate)] 200 mg calcium (500 mg) tablet,chewable 500 mg PO TID Ear Drops (carbamide peroxide) 6.5 % drops See Rx Instructions .ROUTE .COMPLEX Rx Instructions: 4 drps into both ears twice daily for 5 days monthly docusate sodium 100 mg capsule 100 mg PO BID pseudoephedrine HCl [Suphedrin] 30 mg Tablet 30 mg PO Q6H PRN (Reason: Allergy Symptoms) Rx Instructions: DNExceed 4 doses/24h risperidone 1 mg tablet 1 mg PO BID fluoride (sodium) 1.1 % gel 1 appl PO BEDTIME Rx Instructions: brush along gum line tolnaftate [Tinactin] 1 % Aerosol Powder 2 spray TOPICAL BID PRN (Reason: groin rash) risperidone 0.5 mg tablet 0.5 mg PO DAILY PRN (Reason: Anxiety) hydroxyzine pamoate 25 mg capsule 25 mg PO DAILY PRN (Reason: Anxiety) Rx Instructions: HOLD CETIRIZINE WHEN IN USE Saline Nasal 0.65 % Aerosol,[place] 1 spray INTRANASAL BID PRN (Reason: dryness) bacitracin zinc-polymyxin B [Polysporin] 500-10,000 unit/gram Ointment 1 appl TOPICAL Q12H PRN (Reason: skin breakdown) multivitamin with folic acid [Thera] 400 mcg tablet 1 tab PO DAILY oxycodone [OxyContin] 10 mg Tablet,Oral Only,Ext.Rel.12 Hr 10 mg PO BID Qty: 20 0RF Rx Instructions: Partial Fill upon patient request. ibuprofen 800 mg tablet 800 mg PO Q8H PRN (Reason: pain) 30 Days Qty: 90 3RF Print Language: Yoruba
[2024-01-26] MEDS: predniSONE 20 MG TABLET 60 MG PO (20:06)
[2024-01-26] MEDS: Acetaminophen 325 MG TABLET 975 MG PO (20:06)
[2024-01-26 20:32] VITALS: BP 143/57; PULSE 91; RESP 16; TEMP 36.3
== END 2024-01-26 20:44 | disposition home or self-care (01) ==
PROVIDERS: Emergency Provider Emergency Medicine Emergency Medical Services; PCP Internal Medicine
DX: M10.9 Gout, unspecified (principal); I10 Essential (primary) hypertension; G40.909 Epilepsy, unspecified, not intractable, without status epilepticus; S72.052D Unspecified fracture of head of left femur, subsequent encounter for closed fracture with routine healing; Z96.642 Presence of left artificial hip joint
CPT/HCPCS: 72170; 73600; 73630; 99212; 99283

== ENCOUNTER 2024-04-02 09:13 | Inpatient (IN) | payer MEDICARE, MEDICAID, SELFPAY ==
--- NOTE | 2024-04-02 | ECG_ITS ---
Test Reason : DYSPNEA Blood Pressure : / mmHG Vent. Rate : 107 BPM Atrial Rate : 107 BPM P-R Int : 156 ms QRS Dur : 072 ms QT Int : 344 ms P-R-T Axes : 054 003 040 degrees QTc Int : 459 ms Sinus tachycardia Otherwise normal ECG When compared with ECG of 27-FEB-2023 10:18, Nonspecific T wave abnormality, improved in Lateral leads Referred By: Generic ED Physician Electronically Signed By:Micky Paige
--- NOTE | ~2024-04-02 | XR_ITS ---
EXAMINATION: XR CHEST CLINICAL INFORMATION: Shortness of breath COMPARISON: 02/26/2023 TECHNIQUE: Frontal view of the chest was obtained. FINDINGS: Heart and mediastinum are prominent. Vascularity likely within normal limits. Right mid to lower hemithorax opacity with obliteration of the costophrenic angle. Bony structures are intact. XR/XR chest 1V IMPRESSION: Suspect right pneumonia with parapneumonic effusion. Underlying mass cannot be excluded.
--- NOTE | ~2024-04-02 | CT_ITS ---
EXAMINATION: CT CHEST WITHOUT CONTRAST CLINICAL INFORMATION: Right lower lobe infiltrate, possible mass COMPARISON: Chest radiograph earlier in the day TECHNIQUE: Multidetector volumetric CT imaging of the chest was done. Axial MIP volume rendering provided. Sagittal and coronal reformatted images were obtained. This CT examination was performed using dose optimization techniques as appropriate, variously including the following: *Automated exposure control *Adjustment of mA and/or kV according to patient size (this includes techniques or standardized protocols for targeted exams where dose is matched to indication/reason for exam; i.e. extremities or head) *Use of iterative reconstruction technique DLP: 356 mGy-cm FINDINGS: BILLIARD TABLE MECHANIC: Right base opacity LUNGS: Trachea and bronchi are patent. Study limited by respiratory motion. Right middle and right lower lobe consolidations with air bronchograms. Scattered left atelectasis. MEDIASTINUM: Unremarkable thyroid. No pathologic lymphadenopathy. Nonenlarged heart. No pericardial effusion. Nonaneurysmal aorta with atherosclerotic calcifications. Nonenlarged pulmonary arteries. CORONARY ARTERY CALCIFICATION: Mild PLEURA: Small right pleural effusion. No pleural mass or thickening. AXILLA: No pathologic lymphadenopathy. UPPER ABDOMEN: Diffuse hypoattenuation to the liver. 1.3 cm left hepatic cyst. 3 mm nonobstructing left upper pole calculus versus vascular calcification. OSSEOUS STRUCTURES: Unremarkable. CT/CT chest wo IV con IMPRESSION: Right middle, right lower lobe pneumonias with small right pleural effusion. Evaluation of lung manuel limited due to respiratory motion. Follow-up to resolution recommended. Fleischner guidelines were followed.
[2024-04-02 09:15] VITALS: BP 138/68; PULSE 107; O2SAT 88; BMI 22.9
[2024-04-02 09:29] VITALS: BP 134/75; PULSE 111; RESP 18; TEMP 38.3; O2SAT 88
--- OUTSIDE RECORDS SUMMARY | 2024-04-02 09:37 | XMS_ITS | Continuity of Care Document ---
Author Organization [facility] Salvatore Todd lt Address [address] [place] [address]- Care Team Providers Care Cq Developer Name Role Phone Schuyler Crane MD Primary Care Physician [phone] Encounter [facility] Date(s): 05/06/22 - 06/05/22 [facility] Adult [address] [place] [address]- Allergies, Adverse Reactions, Alerts Substance Reaction Severity Status amoxicillin Active cephalosporins Active penicillins Active benzodiazepines Active Ativan Active Klonopin Wafer Active Immunizations Given and Recorded Vaccine Date Status Refusal Reason pneumococcal 23-valent vaccine 1 05/18/22 Given SARS-CoV-2 (COVID-19) mRNA BNT-162b2 vac 08/05/21 Recorded SARS-CoV-2 (COVID-19) mRNA BNT-162b2 vac 10/29/20 Recorded SARS-CoV-2 (COVID-19) mRNA BNT-162b2 vac 10/05/20 Recorded influenza virus vaccine, inactivated 06/21/21 Alcides rded influenza virus vaccine, inactivated 07/22/20 Give n influenza virus vaccine, inactivated 06/24/19 Alcides rded influenza virus vaccine, inactivated 08/06/17 Give n influenza virus vaccine, inactivated 2 06/25/16 Re corded influenza virus vaccine, inactivated 08/03/15 Alcides rded influenza virus vaccine, inactivated 07/15/14 Give n influenza virus vaccine, inactivated 08/22/13 Give n influenza virus vaccine, inactivated 07/15/10 Give n pneumococcal 13-valent vaccine 02/25/21 Given zoster vaccine, inactivated 04/25/18 Recorded zoster vaccine, inactivated 02/23/18 Recorded Zostavax (oldterm) 02/07/16 Given tetanus/diphtheria/pertussis, acel(Tdap) 01/09/13 Given Fluarix (oldterm) 07/11/11 Given Influenza Inactive (IM) (oldterm) 3 07/11/08 Given Influenza Inactive (IM) (oldterm) 07/27/07 Given Pneumococcal Vaccine (oldterm) 11/13/07 Given Tetanus-Diphth Toxoids, Adult (oldterm) 08/25/04 Vishal muniz 1Result Comment: [facility]# [id number] 2Result Comment: [10/28/2016] pharmacy 3Admin Note: given in clinic Medications ABD Pads (6X9) See Instructions, # 15 mL, Refills 11, Tot. Refills 11, INSTILL 4 DROPS INTO EACH EAR TWICE DAILY FOR 5 DAYS EACH MONTH / IC: CARBAMIDE PEROXIDE (EAR DROPS 6.5%), 10/01/19 8:32:00 EST Start Date: 10/01/19 Status: Ordered acetaminophen 325 mg oral tablet See Instructions, TAKE 2 TABLETS (650 MG) BY MOUTH EVERY 4 HOURS NEEDED (SEE MD ORDERS) (MAPAP),# 168 tablet, Refills 5, Instructions Replace Required Details, Route to Pharmacy Electronically, [facility], 162.56, cm, 02/25/21 9:29:00 EDT, He... Start Date: 08/31/21 Status: Ordered amLODIPine 10 mg oral tablet See Instructions, TAKE 1 TABLET (10 MG) BY MOUTH DAILY IN AM FOR HYPERTENSION, # 30 tablet, 5 Refills, [facility], 162.56, cm, 03/24/22 10:31:00 EDT, Height Start Date: 04/01/22 Status: Ordered ANTACID 500 MG CHEWABLE TAB ANTACID 500 MG CHEWABLE TAB, See Instructions, # 90 each, Refills 3, Tot. Refills 3, Maintenance, TAKE 1 TABLET PO TID FOR OSTEOPOROSIS. MAY CRUSH TABLET PER DR CRANE FX [phone], 07/20/18 12:11:49EDT, Compound Start Date: 07/20/18 Status: Ordered benzonatate 100 mg oral capsule 1 capsule, By Mouth, 3 times a day, PRN NEEDED FOR COUGH / IF NO IMPROVEMENT IN 3 DAYS NOTIFY MD/ IC, JAGRUTI, # 21 capsule, 0 Refills, [facility], 162.56, cm, 12/06/21 13:34:00 EDT, Height Start Date: 02/25/22 Status: Ordered bisacodyl 10 mg rectal suppository See Instructions, INSERT 1 SUPP (10MG) INTO RECTUM NEEDED IF MILK OF MAGNESIA INEFFECTIVE AFTER 8 HRS/BISAC- EVAC EQUIVALENT/ IF SUPPOSITORY INEFFECTIVE AFTER 4 HRS CALL , # 7 supp, 11 Refills, Acute, [facility], 162.56, cm, 02/25/21 9:29:00... Start Date: 04/15/21 Status: Ordered Blood Pressure Monitor See Instructions, 1, 0, 0, 06/11/07 11:11:37, PRN, HTN, ADS OPPTHS, [facility] [id number] [place] [id number] Start Date: 06/11/07 Status: Ordered calcium carbonate 500 mg (200 mg elemental calcium) oral tablet, chewable See Instructions, TAKE 1 TABLET (500 MG) BY MOUTH 3 TIMES A DAY FOR OSTEOPOROSIS MAY CRUSH TABLET IC: CALCIUM CARBONATE, # 90 tablet, Refills 5, Instructions Replace Required Details, Route to Pharmacy Electronically, [facility], 162.56, cm, 11/23... Start Date: 02/25/22 Status: Ordered cetirizine 10 mg oral tablet 1 tablet, By Mouth, Daily in AM, FOR SEASONAL ALLERGIES FROM DECEMBER THROUGH JUNE (START 12/24) SEE ANCILLARY ORDERS., # 30 tablet, 5 Refills, [facility], 162.56, cm, 12/06/21 13:34:00 EDT, Height Start Date: 01/14/22 Status: Ordered citalopram 10 mg oral tablet 10 mg, 1, tablet, By Mouth, Daily, # 30 tablet, Refills 0, Maintenance, 02/12/19 10:28:32 EDT Start Date: 02/12/19 Status: Ordered docusate sodium 100 mg oral capsule See Instructions, TAKE 1 CAPSULE (100 MG) BY MOUTH TWICE DAILY FOR CONSTIPATION (DOCUSATE SODIUM 100 MG), # 60 capsule, 5 Refills, [facility], 162.56, cm, 12/06/21 13:34:00 EDT, Height Start Date: 01/13/22 Status: Ordered EARWAX TREATMENT DROPS 6.5% EARWAX TREATMENT DROPS 6.5%, See Instructions, # 1 each, Refills 11, Tot. Refills 11, Maintenance, USE DIRECTED FAX [phone], 12/02/20 14:40:00 EST, [facility];, [facility], 162.56, cm, 02/24/20 9:30:00 EDT, Height Start Date: 12/02/20 Status: Ordered fluoride 1.1% topical gel See Instructions, USE 1/4 INCH OF GEL TO BRUSH TEETH DAILY IN THE EVENING / BRUSH THOROUGHLY ALONG GUMLINE IC: DENTAGEL, # 56 Gm, 11 Refills, [facility], 30, USE 1/4 INCH OF GEL TO BRUSH TEETH DAILY IN THE EVENING / BRUSH THOROUGHLY ALONG GUMLINE... Start Date: 01/28/22 Status: Ordered GNP MILK OF MAGNESIA 1200 M 1200 KAYLA GNP MILK OF MAGNESIA 1200 M 1200 KAYLA, See Instructions, # 300 mL, 5 Refills, TAKE 2 TABLESPOONFULS (30 ML) BY MOUTH AT BEDTIME NEEDED FOR CONSTIPATION ON DAY 3 OF NO BM / SEE BISCOLAX SUPP ORDER 30ML=2,400MG, 162.56, cm, 02/25/21 9:29:00 EDT, Height Start Date: 11/09/21 Status: Ordered Milk of Magnesia 8% oral suspension See Instructions, TAKE 2 TABLESPOONFULS (30 ML) BY MOUTH AT BEDTIME NEEDED FOR CONSTIPATION ON DAY 3 OF NO BM / SEE BISCOLAX SUPP ORDER 30ML=2,400MG, # 300 mL, 5 Refills, Acute, [facility], 162.56, cm, 02/24/20 9:30:00 EDT, Height Start Date: 10/30/20 Status: Ordered MILLITRIUM TABLET See Instructions, 30, 11, 11, 06/20/08 13:07:29, TAKE 1 TABLET BY MOUTH DAILY (VITAMIN), [facility] [address] [place] [id number], Constant Indicator, MILLITRIUM TABLET Start Date: 06/20/08 Status: Ordered OCEAN SALINE NASAL MIST OCEAN SALINE NASAL MIST, See Instructions, # 1 each, Refills 2, Tot. Refills 2, Maintenance, use bid prn nasal dryness, 11/06/18 9:57:36 EST, Compound Start Date: 11/06/18 Status: Ordered OCEAN SALINE NASAL MIST OCEAN SALINE NASAL MIST, See Instructions, # 1 each, Refills 2, Tot. Refills 2, Maintenance, 1 spray each nostril bid prn nasal dryness PER [employer] [place] FAX [phone], 11/02/18 14:15:30 EST, Compound Start Date: 11/02/18 Status: Ordered Ocuflox 0.3% solution 2 drops, Eyes, Both, 4 times a day, # 10 mL, 0 Refills, Maintenance, 01/10/17 14:21:09, Ophth Solution, 2 drops Eyes, Both 4 times a day Start Date: 01/10/17 Status: Ordered Polysporin 500 u-00926 u/gm ointment See Instructions, APPLY A THIN LAYER TOPICALLY TWICE DAILY NEEDED TO RED, IRRITATED SKIN X 7 DAYS / SEE ANCILLARY ORDERS (BACITRACIN-POLYMYXIN OINTMENT), # 28.3 Gm, 5 Refills, Maintenance, 04/14/21 14:39:00 EDT, [facility], 7, APPLY A THIN LAY... Start Date: 04/14/21 Status: Ordered pravastatin 40 mg oral tablet 1 tablet, By Mouth, Daily, IN PM FOR HYPERLIPIDEMIA., # 30 tablet, 5 Refills, [facility], 162.56, cm, 12/06/21 13:34:00 EDT, Height Start Date: 02/25/22 Status: Ordered RisperDAL 0.25 mg oral tablet 0.25 mg, 1, tablet, By Mouth, 2 times a day, PRN, 1 tablet by mouth prior to ophthalmology appointment followed by another tablet., # 60 tablet, Refills 0, Maintenance, Other, 02/01/16 9:28:16 Start Date: 02/01/16 Status: Ordered RisperDAL 0.5 mg oral tablet See Instructions, 1 tablet By Mouth prior to doctor appointments., Refills 0, Maintenance, 02/28/2210:13:00 EDT, Instructions Replace Required Details, Partial fill upon patient request if the prescription is for a schedule II opioid drug. Start Date: 02/28/22 Status: Ordered RisperDAL 1 mg oral tablet 1 mg, 1, tablet, By Mouth, 2 times a day, # 60 tablet, Refills 0, Tot. Refills 0, Maintenance, 02/01/16 9:27:46, Do Not Route Start Date: 02/01/16 Status: Ordered Senna 8.6 mg oral tablet See Instructions, PRN, TAKE 1 TABLET PO ON 2ND DAY OF NO BM IN THE EVENING FOR CONSTIPATION PER DR CRANE, # 100 tablet, Refills 6, Tot. Refills 6, Maintenance, for constipation, 08/27/20 14:07:00 EST, Instructions Replace Required Details, Route to Phar... Start Date: 08/27/20 Status: Ordered SudoGest 30 mg oral tablet See Instructions, TAKE 1 TAB (30 MG) BY MOUTH EVERY 6 HRS NEEDED FOR NASAL CONGESTION/ SEE ANCILLARY ORDERS (SUPHEDRIN EQUIVALENT), # 30 tablet, 11 Refills, [facility], 162.56, cm, 03/24/22 10:31:00 EDT, Height Start Date: 04/22/22 Status: Ordered SUDOGEST 30 MG TABLETS SUDOGEST 30 MG TABLETS, See Instructions, # 30 each, Refills 11, Tot. Refills 11, Maintenance, TAKE30 MG Q6H PRN PER DR CRANE FAX [phone], 02/01/19 9:46:36 EDT, Compound Start Date: 02/01/19 Status: Ordered THERA CAPLETS THERA CAPLETS, See Instructions, # 30 each, Refills 5, Tot. Refills 5, Maintenance, TAKE ONE CAPLETBY MOUTH QD PER DR CRANE FAX [phone], 10/08/20 11:48:00 EST, Compound, 162.56, cm, 02/24/20 9:30:00 EDT, Height Start Date: 10/08/20 Status: Ordered Thera oral tablet See Instructions, TAKE 1 TABLET BY MOUTH DAILY IN THE AM (VITAMIN), # 30 tablet, 5 Refills, [facility], 30, TAKE 1 TABLET BY MOUTH DAILY IN THE AM (VITAMIN), 162.56, cm, 12/06/21 13:34:00 EDT, Height Start Date: 02/25/22 Status: Ordered TINACTIN 1% AEROSOL POWDER 1 Aerosol TINACTIN 1% AEROSOL POWDER 1 Aerosol, 2, sprays, Topically, 2 times a day, PRN, # 133 Gm, 1 Refills, 162.56, cm, 02/25/21 9:29:00 EDT, Height Start Date: 11/05/21 Status: Ordered Tinactin 1% spray 1 sprays, Topically, 2 times a day, # 120 mL, 1 Refills, Maintenance, 12/01/20 8:15:00 EST, [place], 1 sprays Topically 2 times a day, 162.56, cm, 02/24/20 9:30:00 EDT, Height Start Date: 12/01/20 Status: Ordered TUSSIN DM TUSSIN DM, See Instructions, # 420 mL, Refills 1, Tot. Refills 1, Maintenance, 10 ML PO Q4H PRN FORCOUGH AT BEDTIME PER DR CRANE FAX [phone], 05/22/20 8:48:00 EDT, Compound, 162.56, cm, 02/24/20 9:30:00 EDT, Height Start Date: 05/22/20 Status: Ordered Vitamin D3 2000 intl units oral tablet 1 tablet = 2,000 International_Units, By Mouth, Daily, PER DR CRANE, # 30 tablet, 11 Refills, Maintenance, 02/08/19 16:54:40 EDT Start Date: 02/08/19 Status: Ordered Zostavax subcutaneous injection 0.65 mL, Subcutaneous Infusion, Once, # 0.65 mL, 0 Refills, Soft Stop, 02/01/16 9:44:44 Start Date: 02/01/16 Status: Ordered Problem List Condition Effective Dates Status Health Status Inform ant Colonoscopy(Confirmed) 1, 2 Active Gynecomastia(Confirmed) 12/31/09 Active Hypercholesterolemia(Confirmed) Active Hypertension(Confirmed) Active Microcephaly(Confirmed) Active Periodontal disease(Confirmed) Active Colon polyp(Confirmed) 3, 4 Active Seizure disorder(Confirmed) Active Vitamin D deficiency(Confirmed) Active 19493; repeat 2020 2colo 2006 nl, repeat 2015 3Colonoscopy 2016 positive polyp, repeat 2020. 4colo 2015 Social History Social History Type Response Smoking Status Never smoker entered on: 02/01/16 Sex Care Team Personnel Name: Schuyler Crane MD Address: [address] [place] [id number]
--- OUTSIDE RECORDS SUMMARY | 2024-04-02 09:37 | XMS_ITS | Continuity of Care Document ---
Author Organization [facility] Salvatore Todd lt Address [address] [place] [address]- Care Team Providers Care Document Analyst Name Role Phone Schuyler Crane MD Primary Care Physician [facility] Date[facility]): 01/[facility]24 - 02/29/24 [facility] [address] [place] [address]- Allergies, Adverse Reactions, Alerts Substance Reaction Severity Status amoxicillin Active cephalosporins Active penicillins Active Klonopin Wafer Active benzodiazepines Active Ativan Active Immunizations Given and Recorded Vaccine Date Status Refusal Reason tetanus-diphtheria toxoids (Td) 1 12/27/22 Given pneumococcal 23-valent vaccine 2 12/27/22 Given pneumococcal 23-valent vaccine 3 05/18/22 Given SARS-CoV-2 (COVID-19) mRNA BNT-162b2 vac 08/05/21 Recorded SARS-CoV-2 (COVID-19) mRNA BNT-162b2 vac 10/29/20 Recorded SARS-CoV-2 (COVID-19) mRNA BNT-162b2 vac 10/05/20 Recorded influenza virus vaccine, inactivated 06/21/21 Alcides rded influenza virus vaccine, inactivated 07/22/20 Give n influenza virus vaccine, inactivated 06/24/19 Alcides rded influenza virus vaccine, inactivated 08/06/17 Give n influenza virus vaccine, inactivated 4 06/25/16 Re corded influenza virus vaccine, inactivated 08/03/15 Alcides rded influenza virus vaccine, inactivated 07/15/14 Give n influenza virus vaccine, inactivated 08/22/13 Give n influenza virus vaccine, inactivated 07/15/10 Give n pneumococcal 13-valent vaccine 02/25/21 Given zoster vaccine, inactivated 04/25/18 Recorded zoster vaccine, inactivated 02/23/18 Recorded Zostavax (oldterm) 02/07/16 Given tetanus/diphtheria/pertussis, acel(Tdap) 01/09/13 Given Fluarix (oldterm) 07/11/11 Given Influenza Inactive (IM) (oldterm) 5 07/11/08 Given Influenza Inactive (IM) (oldterm) 07/27/07 Given Pneumococcal Vaccine (oldterm) 11/13/07 Given Tetanus-Diphth Toxoids, Adult (oldterm) 08/25/04 Vsihal muniz 1Result Comment: Td - [facility]# [id number] 2Result Comment: PCV23 - [facility]# [id number] 3Result Comment: [facility]# [id number] 4Result Comment: [10/28/2016] pharmacy 5Admin Note: given in clinic Medications ABD Pads (6X9) See Instructions, # 15 mL, Refills 11, Tot. Refills 11, INSTILL 4 DROPS INTO EACH EAR TWICE DAILY FOR 5 DAYS EACH MONTH / IC: CARBAMIDE PEROXIDE (EAR DROPS 6.5%), 10/01/19 8:32:00 EST Start Date: 10/01/19 Status: Ordered acetaminophen 325 mg oral tablet 2, tablet, By Mouth, Every 4 hours, PRN, SEE MD ORDERS) (MAPAP., # 168 tablet, Refills 5, Maintenance, NEEDED, 10/14/22 8:03:00 EST, Route to Pharmacy Electronically, [facility], 162.56, cm, 07/04/22 8:33:00 EDT, Height Start Date: 10/14/22 Status: Ordered acetaminophen 325 mg oral tablet 2, tablet, By Mouth, 2 times a day, PRN, # 20 tablet, Refills 0, Tot. Refills 0, Maintenance, NEEDED, 12/12/23 11:09:00 EDT, Route to Pharmacy Electronically, [facility], 162.56, cm, 12/11/2409:47:00 EDT, Height Start Date: 12/12/23 Stop Date: 12/17/23 Status: Ordered All Day Allergy 10 mg oral tablet 1 tablet, By Mouth, Daily in AM, FOR SEASONAL ALLERGIES FROM DECEMBER THROUGH JUNE (START 12/24 / ) SEE ANCILLARY ORDERS., # 30 tablet, 11 Refills, Maintenance, 12/21/23 7:45:00 EDT, [facility], 162.56, cm, 12/12/23 10:47:00 EDT, Height Start Date: 12/21/23 Status: Ordered amLODIPine 10 mg oral tablet 1 tablet, By Mouth, Daily in AM, FOR HYPERTENSION., # 30 tablet, 5 Refills, Maintenance, 10/25/23 0:22:00 EST, [facility], 162.56, cm, 10/03/23 9:00:00 EST, Height Start Date: 10/25/23 Status: Ordered ANTACID 500 MG CHEWABLE TAB ANTACID 500 MG CHEWABLE TAB, See Instructions, # 90 each, Refills 3, Tot. Refills 3, Maintenance, TAKE 1 TABLET PO TID FOR OSTEOPOROSIS. MAY CRUSH TABLET PER DR ROSA MARIA CRUZ [phone], 07/20/18 12:11:49EDT, Compound Start Date: 07/20/18 Status: Ordered benzonatate 100 mg oral capsule 1 capsule, By Mouth, 3 times a day, PRN NEEDED FOR COUGH / IF NO IMPROVEMENT IN 3 DAYS NOTIFY MD/ IC, JAGRUTI, # 21 capsule, 0 Refills, Maintenance, 10/05/23 12:01:00 EST, [facility], 162.56, cm, 10/03/23 9:00:00 EST, Height Start Date: 10/05/23 Status: Ordered bisacodyl 10 mg rectal suppository See Instructions, INSERT 1 SUPP (10MG) INTO RECTUM NEEDED IF MILK OF MAGNESIA INEFFECTIVE AFTER 8 HRS/BISAC- EVAC EQUIVALENT/ IF SUPPOSITORY INEFFECTIVE AFTER 4 HRS CALL MD, # 7 supp, 11 Refills, Acute, [facility], 162.56, cm, 02/25/21 9:29:00... Start Date: 04/15/21 Status: Ordered Blood Pressure Monitor See Instructions, 1, 0, 0, 06/11/07 11:11:37, PRN, HTN, ADS OPPTHS, [facility] [id number] [place] [id number] Start Date: 06/11/07 Status: Ordered calcium carbonate 500 mg (200 mg elemental calcium) oral tablet, chewable 1, tablet, By Mouth, 3 times a day, CRUSH. IC: CALCIUM CARBONATE, # 90 tablet, Refills 5, Maintenance, 10/02/23 8:50:00 EST, Route to Pharmacy Electronically, [facility], 162.56, cm, 09/19/23 10:28:00 EST, Height Start Date: 10/02/23 Status: Ordered carbamide peroxide 6.5% otic solution See Instructions, INSTILL 4 DROPS INTO EACH EAR TWICE DAILY FOR 5 DAYS EACH MONTH / IC: CARBAMIDE PEROXIDE (EAR DROPS 6.5%), # 15 mL, 11 Refills, Maintenance, 09/01/23 9:17:00 EST, [facility], 30, INSTILL 4 DROPS INTO EACH EAR TWICE DAILY FOR 5 D... Start Date: 09/01/23 Status: Ordered citalopram 10 mg oral tablet 10 mg, 1, tablet, By Mouth, Daily, # 30 tablet, Refills 0, Maintenance, 02/12/19 10:28:32 EDT Start Date: 02/12/19 Status: Ordered docusate sodium 100 mg oral capsule See Instructions, TAKE 1 CAPSULE (100 MG) BY MOUTH TWICE DAILY FOR CONSTIPATION (DOCUSATE SODIUM 100 MG), # 60 capsule, 5 Refills, Maintenance, 11/23/23 20:00:00 EST, [facility], 162.56, cm, 10/03/23 9:00:00 EST, Height Start Date: 11/23/23 Status: Ordered EARWAX TREATMENT DROPS 6.5% EARWAX TREATMENT DROPS 6.5%, See Instructions, # 1 each, Refills 11, Tot. Refills 11, Maintenance, USE DIRECTED FAX [phone], 12/02/20 14:40:00 EST, [facility], 162.56, cm, 02/24/20 9:30:00 EDT, Height Start Date: 12/02/20 Status: Ordered fluoride 1.1% topical gel See Instructions, USE 1/4 INCH OF GEL TO BRUSH TEETH DAILY IN THE EVENING / BRUSH THOROUGHLY ALONG GUMLINE IC: DENTAGEL, # 56 Gm, 11 Refills, Maintenance, 09/21/23 16:44:00 EST, [facility], 30, USE 1/4 INCH OF GEL TO BRUSH TEETH DAILY IN THE EVEN... Start Date: 09/21/23 Status: Ordered Carolyn-jag 8.6 mg oral tablet 1 tablet, By Mouth, Daily in PM, FOR CONSTIPATION / SEE MILK OF MAG ORDERS / IC: SENNA 8.6 MG, # 15tablet, 6 Refills, Maintenance, 10/14/22 8:03:00 EST, [facility], 162.56, cm, 07/04/22 8:33:00EDT, Height Start Date: 10/14/22 Status: Ordered Hospital Bed See Instructions, # 1 each, Refills 0, Tot. Refills 0, Maintenance, [facility] DX: Left hip fracture, seizure dis, impulse control disorder, atypical autism. Duration ongoing NPI#[id number] Height: 5'6 Weight: 137lbs, 03/22/23 13:55:... Start Date: 03/22/23 Status: Ordered ibuprofen 600 mg oral tablet 600 mg, 1, tablet, By Mouth, Every 8 hours, PRN for pain, # 30 tablet, Refills 0, Tot. Refills 0, Maintenance, 02/08/24 12:44:00 EDT, Route to Pharmacy Electronically, [facility], Partial fill upon patient request if the prescription is for a adeline... Start Date: 02/08/24 Status: Ordered Milk of Magnesia 8% oral suspension See Instructions, TAKE 2 TABLESPOONFULS (30 ML) BY MOUTH AT BEDTIME NEEDED FOR CONSTIPATION ON DAY 3 OF NO BM / SEE BISCOLAX SUPP ORDER 30ML=2,400MG, # 300 mL, 5 Refills, Acute, [facility], 162.56, cm, 02/24/20 9:30:00 EDT, Height Start Date: 10/30/20 Status: Ordered MILLITRIUM TABLET See Instructions, 30, 11, 11, 06/20/08 13:07:29, TAKE 1 TABLET BY MOUTH DAILY (VITAMIN), [facility] [address] [place] [address], Constant Indicator, MILLITRIUM TABLET Start Date: 06/20/08 Status: Ordered OCEAN SALINE NASAL MIST OCEAN SALINE NASAL MIST, See Instructions, # 1 each, Refills 2, Tot. Refills 2, Maintenance, use bid prn nasal dryness, 11/06/18 9:57:36 EST, Compound Start Date: 11/06/18 Status: Ordered Paxlovid 150 mg-100 mg (150 mg-100 mg Dose) oral tablet See Instructions, Take 3 tablets twice a day by mouth for 5 days.300 mg nirmatrelvir plus 100 mg ritonavir. Normal dose, # 30 tablet, 0 Refills, Maintenance, 10/03/23 8:50:00 EST, [facility], Partial fill upon patient request if the prescription... Start Date: 10/03/23 Status: Ordered Polysporin 500 u-45656 u/gm ointment See Instructions, APPLY A THIN LAYER TOPICALLY TWICE DAILY NEEDED TO RED, IRRITATED SKIN X 7 DAYS / SEE ANCILLARY ORDERS (BACITRACIN-POLYMYXIN OINTMENT), # 28.3 Gm, 5 Refills, Maintenance, 04/18/23 8:59:00 EDT, [facility], 7, APPLY A THIN LAYE... Start Date: 04/18/23 Status: Ordered pravastatin 40 mg oral tablet 1 tablet, By Mouth, Daily, IN PM FOR HYPERLIPIDEMIA., # 30 tablet, 5 Refills, Maintenance, 248:50:00 EST, [facility], 162.56, cm, 09/19/23 10:28:00 EST, Height Start Date: 10/02/23 Status: Ordered Profola oral tablet 1 tablet, By Mouth, Daily, # 30 tablet, 11 Refills, Maintenance, 05/19/23 10:41:00 EDT, [facility], Partial fill upon patient request if the prescription is for a schedule II opioid drug., 1 tablet By Mouth Daily,x30 days, 162.56, cm, 05/15/23 9:... Start Date: 05/19/23 Stop Date: 05/13/24 Status: Ordered RisperDAL 0.25 mg oral tablet [...] Not Route Start Date: 02/01/16 Status: Ordered SudoGest 30 mg oral tablet See Instructions, TAKE 1 TAB (30 MG) BY MOUTH EVERY 6 HRS NEEDED FOR NASAL CONGESTION/ SEE ANCILLARY ORDERS (SUPHEDRIN EQUIVALENT), # 30 tablet, 11 Refills, Maintenance, 10/26/23 8:49:00 EST, [facility], 162.56, cm, 10/03/23 9:00:00 EST, Height Start Date: 10/26/23 Status: Ordered SUDOGEST 30 MG TABLETS SUDOGEST 30 MG TABLETS, See Instructions, # 30 each, Refills 11, Tot. Refills 11, Maintenance, TAKE30 MG Q6H PRN PER DR CRANE FAX [phone], 02/01/19 9:46:36 EDT, Compound Start Date: 02/01/19 Status: Ordered Thera oral tablet 1 tablet, By Mouth, Daily in AM, VITAMIN., # 30 tablet, 5 Refills, Maintenance, 10/25/23 10:03:00 EST, [facility], 30, TAKE 1 TABLET BY MOUTH DAILY IN THE AM (VITAMIN), 162.56, cm, 10/03/23 9:00:00 EST, Height Start Date: 10/25/23 Status: Ordered TINACTIN 1% AEROSOL POWDER 1 Aerosol TINACTIN 1% AEROSOL POWDER 1 Aerosol, 2, sprays, Topically, 2 times a day, PRN, # 133 Gm, 1 Refills, 162.56, cm, 02/25/21 9:29:00 EDT, Height Start Date: 11/05/21 Status: Ordered Tinactin 1% spray 1 sprays, Topically, 2 times a day, # 120 mL, 1 Refills, Maintenance, 12/01/20 8:15:00 EST, [place], [facility], 1 sprays Topically 2 times a day, 162.56, cm, 02/24/20 9:30:00 EDT, Height Start Date: 12/01/20 Status: Ordered KAILYNIN KUSHAL FATIMA, See Instructions, # 420 mL, Refills 1, Tot. Refills 1, Maintenance, 10 ML PO Q4H PRN FORCOUGH AT BEDTIME PER DR CRANE FAX [phone], 05/22/20 8:48:00 EDT, [facility], 162.56, cm, 02/24/20 [...] Date: 02/01/16 Status: Ordered Problem List Condition Confirmation Course Effective Dates Status Health Status Informant Colonoscopy 1, 2 Confirmed Active Conjunctivitis Confirmed Active Foot pain, left Confirmed Active Gynecomastia Confirmed 12/31/09 Active Status post-operative repair of closed fracture of left hip Confirmed Active Left hip hemiarthoplasty 02/26/2023 Confirmed Active Hypercholesterolemia Confirmed Active Hypertension Confirmed Active Microcephaly Confirmed Active Periodontal disease Confirmed Active Colon polyp 3, 4 Confirmed Active Pressure injury of skin Confirmed Active Seizure disorder Confirmed Active Vitamin D deficiency Confirmed Active 92581; repeat 2020 2colo 2005 nl, repeat 2015 3Colonoscopy 2016 positive polyp, repeat 2020. 4colo 2015 Social History Social History Type Response Smoking Status Never smoker entered on: 02/01/16 Sex Note * Ghada Duffy RN: SIGN, MODIFY, PERFORM, SIGN, VERIFY Schuyler Crane MD: SIGN Event Display: Case Management Discharge Plan Authored Date: [id number] Patient: ISAK FERRARO Age: 68 years Sex: Male : 1955 Associated Diagnoses: None Author: Ghada Duffy RN Care Management Discharge Call Note Admit date 01/26/2024 Discharge date 01/26/2024 Date of contact 01/30/2024 Diagnosis left LLE concern If patient went for emergency services was this patient referred? Referred by halfway staff took pt to ED D/C notes in cis Addendum by Ghada Duffy RN on January 30, 2024 16:24:35 EDT From: Ghada Duffy RN ([facility] - [facility]) To: Toma Pitts; Gemma RN, Kelly; Chantelle RN, Soumya; Ghada Duffy RN; Sent: 01/30/2024 16:24:35 EDT Subject: ERF appt. FW: [place]/Appointment/ERF Caller Name: ISAK FERRARO; Caller Number: H , B Called spoke with Katie from halfway. Jonn off from work for today. TCM complete. 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 This is so he can get back to day program. Toma Can we fins something on Mon or Mon next week?. I am off on mon/. If someone can call with the appt? or I can call as well on Mon when I am back. Thank you all. From: Anay Bob To: [facility] - [facility]; Sent: 01/30/2024 11:34:13 EDT Subject: [place]/Appointment/ERF Caller Name: ISAK FERRARO; Caller Number: H , B Caller Name:_Jonn, moisture tester Call Back Number:_[phone] Call Back Requested:_yes Is it OK to leave a detailed message:yes Pharmacy:_ Caller states that pt went to [place] [facility] on Monday and was dx with arthritis and possible gout. Pt needs ERF Please call back Discharge instructions were reviewed with the patient? Yes Medication reconciliation performed Yes Looks like you were recently discharged from the hospital (ED), how are you feeling? pt is doing well per Timari report Please tell me the problem or condition that brought you to the hospital (ED)? left LLE edema swelling Do you know what to do in case of an emergency? halfway staff does Were you given any prescriptions to fill? Yes. Do you understand how to take your medication? Yes Do you have an appointment already scheduled with your PCP? Is date appropriate: see above note. Appointment scheduled? No Home Care Services requested? No Have there been any changes in your condition since discharge? No Do you have someone at home that is able to help you? Yes Is there anything else that you need addressed before your follow up appointment? No * Clive SHETTY, Ghada: PERFORM Event Display: Case Management Discharge Plan Authored Date: [id number] Addendum by Toma Pitts on January 31, 2024 08:43:39 EDT appt scheduled with dr Stafford for 01/30. it is halfway protocol Addendum by Schuyler Crane MD on January 31, 2024 08:25:28 EDT From: Schuyler Crane MD To: Toma Pitts; Sent: 01/31/2024 08:25:28 EDT Subject: RE: ERF appt. FW: [place]/Appointment/ERF Caller Name: ISAK FERRARO; Caller Number: H , B According to halfway protocol, patient may need to be seen. You can check with the halfway. Patient Care team information Care Team Personnel Name: Schuyler Crane MD Position: S Physician - Primary Care Member Role: PCP Address: Address: [address] [place] [address]- Care Team Related Persons Name: ELLE ALMEIDA Address: [address] [address] Name: ZAK SHELL
--- OUTSIDE RECORDS SUMMARY | 2024-04-02 09:37 | XMS_ITS | Continuity of Care Document ---
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 Name Role Phone Schuyler Crane MD Primary Care Physician [phone] [facility]counter [facility] 02[facility]22 - 03/26/22 [facility] [address] [place] [address]- Allergies, Adverse Reactions, Alerts Substance Reaction Severity Status amoxicillin Active cephalosporins Active penicillins Active benzodiazepines Active Ativan Active Klonopin Wafer Active Immunizations Given and Recorded Vaccine Date Status Refusal Reason SARS-CoV-2 (COVID-19) mRNA BNT-162b2 vac 08/05/21 Recorded SARS-CoV-2 (COVID-19) mRNA BNT-162b2 vac 10/29/20 Recorded SARS-CoV-2 (COVID-19) mRNA BNT-162b2 vac 10/05/20 Recorded influenza virus vaccine, inactivated 06/21/21 Alcides rded influenza virus vaccine, inactivated 07/22/20 Give n influenza virus vaccine, inactivated 06/24/19 Alcides rded influenza virus vaccine, inactivated 08/06/17 Give n influenza virus vaccine, inactivated 1 06/25/16 Re corded influenza virus vaccine, inactivated 08/03/15 Alcides rded influenza virus vaccine, inactivated 07/15/14 Give n influenza virus vaccine, inactivated 08/22/13 Give n influenza virus vaccine, inactivated 07/15/10 Give n pneumococcal 13-valent vaccine 02/25/21 Given zoster vaccine, inactivated 04/25/18 Recorded zoster vaccine, inactivated 02/23/18 Recorded Zostavax (oldterm) 02/07/16 Given tetanus/diphtheria/pertussis, acel(Tdap) 01/09/13 Given Fluarix (oldterm) 07/11/11 Given Influenza Inactive (IM) (oldterm) 2 07/11/08 Given Influenza Inactive (IM) (oldterm) 07/27/07 Given Pneumococcal Vaccine (oldterm) 11/13/07 Given Tetanus-Diphth Toxoids, Adult (oldterm) 08/25/04 G sunitalea 1Result Comment: [10/28/2016] pharmacy 2Admin Note: given in clinic Medications ABD Pads [...] Replace Required Details, Route to Pharmacy Electronically, [facility], 162.56, cm, 02/25/21 9:29:00 EDT, He... Start Date: 08/31/21 Status: Ordered amLODIPine 10 mg oral tablet See Instructions, TAKE 1 TABLET (10 MG) BY MOUTH DAILY IN AM FOR HYPERTENSION, # 30 tablet, 5 Refills, [facility], 162.56, cm, 02/25/21 9:29:00 EDT, Height Start Date: 09/30/21 Status: Ordered ANTACID 500 MG CHEWABLE TAB ANTACID 500 MG CHEWABLE TAB, See Instructions, # 90 each, Refills 3, Tot. Refills 3, Maintenance, TAKE 1 TABLET PO TID FOR OSTEOPOROSIS. MAY CRUSH TABLET PER DR CRANE FX [phone], 07/20/18 12:11:49EDT, Compound Start Date: 07/20/18 Status: Ordered benzonatate 100 mg oral capsule 1 capsule, By Mouth, 3 times a day, PRN NEEDED FOR COUGH / IF NO IMPROVEMENT IN 3 DAYS NOTIFY / IC, JAGRUTI, # 21 capsule, 0 Refills, [facility], 162.56, cm, 12/06/21 13:34:00 EDT, Height Start Date: 02/25/22 Status: Ordered bisacodyl 10 mg rectal suppository See Instructions, INSERT 1 SUPP (10MG) INTO RECTUM NEEDED IF MILK OF MAGNESIA INEFFECTIVE AFTER 8 HRS/BISAC- EVAC EQUIVALENT/ IF SUPPOSITORY INEFFECTIVE AFTER 4 HRS CALL , # 7 supp, 11 Refills, Acute, [facility], 162.56, cm, 02/25/21 9:29:00... Start Date: 04/15/21 Status: Ordered Blood Pressure Monitor See Instructions, 1, 0, 0, 06/11/07 11:11:37, PRN, HTN, ADS OPPTHS, [facility] [address] [address] Start Date: 06/11/07 Status: Ordered calcium carbonate 500 mg (200 mg elemental calcium) oral tablet, chewable See Instructions, TAKE 1 TABLET (500 MG) BY MOUTH 3 TIMES A DAY FOR OSTEOPOROSIS MAY CRUSH TABLET IC: CALCIUM CARBONATE, # 90 tablet, Refills 5, Instructions Replace Required Details, Route to Pharmacy Electronically, [facility], 162.56, cm, 11/23... Start Date: 02/25/22 Status: Ordered cetirizine 10 mg oral tablet 1 tablet, By Mouth, Daily in AM, FOR SEASONAL ALLERGIES FROM DECEMBER THROUGH JUNE (START 12/24) SEE ANCILLARY ORDERS., # 30 tablet, 5 Refills, [facility], 162.56, cm, 12/06/21 13:34:00 EDT, Height [...] 100 MG), # 60 capsule, 5 Refills, [facility], 162.56, cm, 12/06/21 13:34:00 EDT, Height Start Date: 01/13/22 Status: Ordered EARWAX TREATMENT DROPS 6.5% EARWAX TREATMENT DROPS 6.5%, See Instructions, # 1 each, Refills 11, Tot. Refills 11, Maintenance, USE DIRECTED FAX [phone], 12/02/20 14:40:00 EST, [facility], 162.56, cm, 02/24/20 9:30:00 EDT, Height Start Date: 12/02/20 Status: Ordered fluoride 1.1% topical gel See Instructions, USE 1/4 INCH OF GEL TO BRUSH TEETH DAILY IN THE EVENING / BRUSH THOROUGHLY ALONG GUMLINE IC: DENTAGEL, # 56 Gm, 11 Refills, [facility], 30, USE 1/4 INCH OF GEL [...] ORDER 30ML=2,400MG, # 300 mL, 5 Refills, [facility], [facility], 162.56, cm, 02/24/20 9:30:00 EDT, Height Start Date: 10/30/20 Status: Ordered MILLITRIUM TABLET See Instructions, 30, 11, 11, 06/20/08 13:07:29, TAKE 1 TABLET BY MOUTH DAILY (VITAMIN), [facility] [address] [place] [address], Constant Indicator, MILLITRIUM TABLET Start Date: 06/20/08 [...] bid prn nasal dryness PER DAWIT [employer]ORE[employer] 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 Start Date: 04/14/21 Status: Ordered pravastatin 40 mg oral tablet 1 tablet, By Mouth, Daily, IN PM FOR HYPERLIPIDEMIA., # 30 tablet, 5 Refills, [facility], 162.56, cm, 12/06/21 13:34:00 EDT, Height [...] to Phar... Start Date: 08/27/20 Status: Ordered SUDOGEST 30 MG TABLETS SUDOGEST 30 MG TABLETS, See Instructions, # 30 each, Refills 11, Tot. Refills 11, Maintenance, TAKE30 MG Q6H PRN PER DR CRANE FAX [phone], 02/01/19 9:46:36 EDT, Compound Start Date: 02/01/19 Status: Ordered Suphedrin 30 mg oral tablet See Instructions, TAKE 1 TAB (30 MG) BY MOUTH EVERY 6 HRS NEEDED FOR NASAL CONGESTION/ SEE ANCILLARY ORDERS (SUDOGEST EQUIVALENT), # 30 tablet, 11 Refills, Acute, [facility], 162.56, cm, 02/24/20 9:30:00 EDT, Height Start Date: 05/22/20 Status: Ordered THERA CAPLETS THERA CAPLETS, See Instructions, # 30 each, Refills 5, Tot. Refills 5, Maintenance, TAKE ONE CAPLETBY MOUTH QD PER DR CRANE FAX [phone], 10/08/20 11:48:00 EST, [facility], 162.56, cm, 02/24/20 9:30:00 EDT, Height Start Date: 10/08/20 Status: Ordered Thera oral tablet See Instructions, TAKE 1 TABLET BY MOUTH DAILY IN THE AM (VITAMIN), # 30 tablet, 5 Refills, [facility], 30, TAKE 1 TABLET BY MOUTH [...] mL, 1 Refills, Maintenance, 12/01/20 8:15:00 EST, [place], [facility], 1 sprays Topically 2 times a day, 162.56, cm, 02/24/20 9:30:00 EDT, Height Start Date: 12/01/20 Status: Ordered JAMAL FATIMA, See Instructions, # 420 mL, Refills 1, Tot. Refills 1, Maintenance, 10 ML PO Q4H PRN FORCOUGH AT BEDTIME PER DR CRANE FAX [phone], 05/22/20 8:48:00 EDT, [facility], 162.56, cm, 02/24/20 [...] Seizure disorder(Confirmed) Active Vitamin D deficiency(Confirmed) Active 06431; repeat 2020 2colo 2006 nl, repeat 2015 3Colonoscopy 2016 positive polyp, repeat 2020. 4colo 2015 Social History Social History Type Response Smoking Status Never smoker entered on: 02/01/16 Sex
--- OUTSIDE RECORDS SUMMARY | 2024-04-02 09:37 | XMS_ITS | Continuity of Care Document ---
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 Name Role Phone Schuyler Crane MD Primary Care Physician Encounter [facility] Date(s): 01/28/21 - 02/27/21 [facility] Adult [address] [place] [address]- Allergies, Adverse Reactions, Alerts Substance Reaction Severity Status amoxicillin Active cephalosporins Active penicillins Active benzodiazepines Active Ativan Active Klonopin Wafer Active Immunizations Given and Recorded Vaccine Date Status Refusal Reason pneumococcal 13-valent vaccine 02/25/21 Given SARS-CoV-2 (COVID-19) mRNA BNT-162b2 vac 10/29/20 Recorded SARS-CoV-2 (COVID-19) mRNA BNT-162b2 vac 10/05/20 Recorded influenza virus vaccine, inactivated 07/22/20 Give n influenza virus vaccine, inactivated 06/24/19 Alcides rded influenza virus vaccine, inactivated 08/06/17 Give n influenza virus vaccine, inactivated 1 06/25/16 Re corded influenza virus vaccine, inactivated 08/03/15 Alcides rded influenza virus vaccine, inactivated 07/15/14 Give n influenza virus vaccine, inactivated 08/22/13 Give n influenza virus vaccine, inactivated 07/15/10 Give n zoster vaccine, inactivated 04/25/18 Recorded zoster vaccine, inactivated 02/23/18 Recorded Zostavax (oldterm) 02/07/16 Given tetanus/diphtheria/pertussis, acel(Tdap) 01/09/13 Given Fluarix (oldterm) 07/11/11 Given Influenza Inactive (IM) (oldterm) 2 07/11/08 Given Influenza Inactive (IM) (oldterm) 07/27/07 Given Pneumococcal Vaccine (oldterm) 2/19/08 Given Tetanus-Diphth Toxoids, Adult (oldterm) 08/25/04 Vishal muniz 1Result Comment: [10/28/2016] pharmacy 2Admin Note: given in clinic Medications ABD Pads (6X9) See Instructions, # 15 mL, Refills 11, Tot. Refills 11, INSTILL 4 DROPS INTO EACH EAR TWICE DAILY FOR 5 DAYS EACH MONTH / IC: CARBAMIDE PEROXIDE (EAR DROPS 6.5%), 10/01/19 8:32:00 EST Start Date: 10/01/19 Status: Ordered amLODIPine 10 mg oral tablet 10 mg, 1, tablet, By Mouth, Daily, # 90 tablet, Refills 1, Tot. Refills 1, Soft Stop, 10/08/20 8:13:00 EST, Route to Pharmacy Electronically, [facility], 162.56, cm, 02/24/20 9:30:00 EDT, Height Start Date: 10/08/20 Status: Ordered ANTACID 500 MG CHEWABLE TAB ANTACID 500 MG CHEWABLE TAB, See Instructions, # 90 each, Refills 3, Tot. Refills 3, Maintenance, TAKE 1 TABLET PO TID FOR OSTEOPOROSIS. MAY CRUSH TABLET PER DR CRANE FX [phone], 07/20/18 12:11:49EDT, Compound Start Date: 07/20/18 Status: Ordered Bisco-Lax 10 mg rectal suppository See Instructions, INSERT 1 SUPP (10MG) INTO RECTUM NEEDED IF MILK OF MAGNESIA INEFFECTIVE AFTER 8 HRS/BISAC- EVAC EQUIVALENT/ IF SUPPOSITORY INEFFECTIVE AF, # 7 supp, 11 Refills, Acute, [facility], 162.56, cm, 02/24/20 9:30:00 EDT, Height Start Date: 03/30/20 Status: Ordered Blood Pressure Monitor See Instructions, 1, 0, 0, 06/11/07 11:11:37, PRN, HTN, ADS OPPTHS, [facility] [id number] [place] [id number] Start Date: 06/11/07 Status: Ordered calcium carbonate 500 mg (200 mg elemental calcium) oral tablet, chewable 500 mg, 1, tablet, By Mouth, 3 times a day, PER DR CRANE, # 90 tablet, Refills 3, Tot. Refills 3, Maintenance, 12/03/20 14:35:00 EST, Route to Pharmacy Electronically, [facility], 162.56, cm, 02/24/20 9:30:00 EDT, Height Start Date: 12/03/20 Stop Date: 04/02/21 Status: Ordered cetirizine 10 mg oral tablet See Instructions, TAKE 1 TABLET (10 MG) BY MOUTH DAILY IN THE AM FOR SEASONAL ALLERGIES FROM DECEMBER THROUGH JUNE (START 12/24) SEE ANCILLARY ORDERS, # 30 tablet, 5 Refills, Maintenance, [facility], 162.56, cm, 02/25/21 9:29:00 EDT, He... Start Date: 02/25/21 Status: Ordered cetirizine 10 mg oral tablet 1 tablet, By Mouth, Daily in AM, FOR SEASONAL ALLERGIES FROM DECEMBER THROUGH JUNE (START 12/24) SEE ANCILLARY ORDERS., # 30 tablet, 5 Refills, Maintenance, 02/25/21 13:04:00 EDT, [facility], 162.56, cm, 02/25/21 9:29:00 EDT, Height Start Date: 02/25/21 Status: Ordered citalopram 10 mg oral tablet 10 mg, 1, tablet, By Mouth, Daily, # 30 tablet, Refills 0, Maintenance, 02/12/19 10:28:32 EDT Start Date: 02/12/19 Status: Ordered Dentagel 1.1% topical gel See Instructions, USE 1/4 INCH OF GEL TO BRUSH TEETH DAILY IN THE EVENING / BRUSH THOROUGHLY ALONG GUMLINE, # 56 Gm, 11 Refills, Maintenance, 08/07/20 11:11:00 EST, [facility], 30, USE 1/4 INCH OF GEL TO BRUSH TEETH DAILY IN THE EVENING / BRUSH T... Start Date: 08/07/20 Status: Ordered docusate sodium 100 mg oral capsule 1 capsule, By Mouth, 2 times a day, # 60 capsule, 5 Refills, Maintenance, 01/28/21 15:23:00 EDT, [facility], 162.56, cm, 02/24/20 9:30:00 EDT, Height Start Date: 01/28/21 Status: Ordered EARWAX TREATMENT DROPS 6.5% EARWAX TREATMENT DROPS 6.5%, See Instructions, # 1 each, Refills 11, Tot. Refills 11, Maintenance, USE DIRECTED FAX [phone], 12/02/20 14:40:00 EST, [facility];, [facility], 162.56, cm, 02/24/20 9:30:00 EDT, Height Start Date: 12/02/20 Status: Ordered Milk of Magnesia 8% oral suspension See Instructions, TAKE 2 TABLESPOONFULS (30 ML) BY MOUTH AT BEDTIME NEEDED FOR CONSTIPATION ON DAY 3 OF NO BM / SEE BISCOLAX SUPP ORDER 30ML=2,400MG, # 300 mL, 5 Refills, Acute, [facility], 162.56, cm, 02/24/20 9:30:00 EDT, Height Start Date: 10/30/20 Status: Ordered MILLITRIUM TABLET See Instructions, 30, 11, 11, 06/20/08 13:07:29, TAKE 1 TABLET BY MOUTH DAILY (VITAMIN), [address] [address], Constant Indicator, MILLITRIUM TABLET Start Date: 06/20/08 [...] bid prn nasal dryness PER DAWIT STOREY RN ON SITE-C FAX [phone], 11/02/18 14:15:30 EST, Compound Start Date: 11/02/18 Status: Ordered Ocuflox 0.3% solution 2 drops, Eyes, Both, 4 times a day, # 10 mL, 0 Refills, Maintenance, 01/10/17 14:21:09, Ophth Solution, 2 drops Eyes, Both 4 times a day Start Date: 01/10/17 Status: Ordered Polysporin 500 u-12785 u/gm ointment See Instructions, APPLY A THIN LAYER TOPICALLY TWICE DAILY NEEDED TO RED, IRRITATED SKIN X 7 DAYS / SEE ANCILLARY ORDERS (BACITRACIN-POLYMYXIN OINTMENT), # 28.3 Gm, 5 Refills, Acute, [facility], 7, APPLY A THIN LAYER TOPICALLY TWICE DAILY N... Start Date: 03/30/20 Status: Ordered Polysporin 500 u-29199 u/gm ointment See Instructions, APPLY A THIN LAYER TOPICALLY TWICE DAILY NEEDED TO RED, IRRITATED SKIN X 7 DAYS / SEE ANCILLARY ORDERS (BACITRACIN-POLYMYXIN OINTMENT), # 28.3 Gm, 5 Refills, Acute, [facility], 7, APPLY A THIN LAYER TOPICALLY TWICE DAILY N... Start Date: 03/30/20 Status: Ordered Pravachol 40 mg oral tablet 1 tablet = 40 mg, By Mouth, Daily, # 90 tablet, 1 Refills, Maintenance, 09/08/20 10:55:00 EST, [facility], 162.56, cm, 02/24/20 9:30:00 EDT, Height Start Date: 09/08/20 Status: Ordered Prevident 1.1% topical gel See Instructions, BRUSH DAILY IN EVENING REFAXED, # 56 Gm, 11 Refills, 02/23/18 15:25:42 EDT, BRUSHDAILY IN EVENING; REFAXED Start Date: 02/23/18 Status: Ordered RisperDAL 0.25 mg oral tablet 0.25 mg, 1, tablet, By Mouth, 2 times a day, PRN, 1 tablet by mouth prior to ophthalmology appointment followed by another tablet., # 60 tablet, Refills 0, Maintenance, Other, 02/01/16 9:28:16 Start Date: 02/01/16 Status: Ordered RisperDAL 1 mg oral tablet 1 mg, 1, tablet, By Mouth, 2 times a day, # 60 tablet, Refills 0, Tot. Refills 0, Maintenance, 02/01/16 9:27:46, Do Not Route Start Date: 02/01/16 Status: Ordered risperiDONE 0.25 mg oral tablet See Instructions, 1 tablet PO 1 HOUR PRIOR TO DOCTOR APPT THEN 1 TAB PO 1/2 PRIOR TO APPT PER DR CRANE, # 30 each, Refills 0, Tot. Refills 0, Maintenance, 02/06/17 13:29:09, Instructions Replace Required Details, Route to Pharmacy Electronically, [id number]... Start Date: 02/06/17 Status: Ordered Senna 8.6 mg oral tablet [...] MG Q6H PRN PER DR CRANE FAX [phone], 02/01/19 9:46:36 EDT, Compound Start Date: 02/01/19 Status: Ordered Suphedrin 30 mg oral tablet See Instructions, TAKE 1 TAB (30 MG) BY MOUTH EVERY 6 HRS NEEDED FOR NASAL CONGESTION/ SEE ANCILLARY ORDERS (SUDOGEST EQUIVALENT), # 30 tablet, 11 Refills, Acute, [facility], 162.56, cm, 02/24/20 9:30:00 EDT, Height Start Date: 05/22/20 Status: Ordered Tessalon Perles 100 mg oral capsule 1 capsule = 100 mg, By Mouth, 3 times a day, PRN as needed for cough, for 7 days, # 21 capsule, 0 Refills, Acute 03/04/21 9:50:00 EDT, 02/25/21 9:50:00 EDT, Capsule, [facility], Partial fill upon patient request if the prescription is for a sched... Start Date: 02/25/21 Stop Date: 03/04/21 Status: Ordered THERA CAPLETS THERA CAPLETS, See Instructions, # 30 each, Refills 5, Tot. Refills 5, Maintenance, TAKE ONE CAPLETBY MOUTH QD PER DR CRANE FAX [phone], 10/08/20 11:48:00 EST, Compound, 162.56, cm, 02/24/20 9:30:00 EDT, Height Start Date: 10/08/20 Status: Ordered Tinactin 1% spray 1 sprays, Topically, 2 times a day, # 120 mL, 1 Refills, Maintenance, 12/01/20 8:15:00 EST, [place], [facility], 1 sprays Topically 2 times a day, 162.56, cm, 02/24/20 9:30:00 EDT, Height Start Date: 12/01/20 Status: Ordered TUSSIN DM JAMAL DM, See Instructions, # 420 mL, Refills 1, Tot. Refills 1, Maintenance, 10 ML PO Q4H PRN FORCOUGH AT BEDTIME PER DR CRANE FAX [phone], 05/22/20 8:48:00 EDT, Compound, 162.56, cm, 02/24/20 9:30:00 EDT, Height Start Date: 05/22/20 Status: Ordered Tylenol 325 mg oral tablet 650 mg, 2, tablet, By Mouth, Every 4 hours, PER DR CRANE, # 168 tablet, Refills 5, Tot. Refills 5, Maintenance, 10/04/19 10:27:00 EST, Route to Pharmacy Electronically, [facility], 162.56, cm, 02/12/19 10:36:00 EDT, Height Start Date: 10/04/19 Status: Ordered Vitamin D3 2000 intl units [...] polyp(Confirmed) 3, 4 Active Seizure disorder(Confirmed) Active Underweight(Confirmed) Active Vitamin D deficiency(Confirmed) Active 61602; repeat 2020 2colo 2006 nl, repeat 2015 3Colonoscopy 2016 positive polyp, repeat 2020. 4colo 2015 Social History Social History Type Response Smoking Status Never smoker entered on: 02/01/16 Sex
--- OUTSIDE RECORDS SUMMARY | 2024-04-02 09:37 | XMS_ITS | Continuity of Care Document ---
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 Name Role Phone Schuyler Crane MD Primary Care Physician [phone] Encounter [facility] Date(s): 02/24/20 - 03/02/20 [facility] [place] Adult [address] [place] [address]- [facility] Encounter Diagnosis Vitamin D deficiency(Discharge Diagnosis) - 02/24/20 Attending Physician: Schuyler Crane MD Allergies, Adverse Reactions, Alerts Substance Reaction Severity Status amoxicillin Active cephalosporins Active penicillins Active benzodiazepines Active Ativan Active Klonopin Wafer Active Immunizations Given and Recorded Vaccine Date Status Refusal Reason zoster vaccine, inactivated 04/25/18 Recorded zoster vaccine, inactivated 02/23/18 Recorded influenza virus vaccine, inactivated 08/06/17 Give n influenza virus vaccine, inactivated 1 06/25/16 Re corded influenza virus vaccine, inactivated 08/03/15 Alcides rded influenza virus vaccine, inactivated 07/15/14 Give n influenza virus vaccine, inactivated 08/22/13 Give n influenza virus vaccine, inactivated 07/15/10 Give n Zostavax (oldterm) 02/07/16 Given tetanus/diphtheria/pertussis, acel(Tdap) 01/09/13 Given Fluarix (oldterm) 07/11/11 Given Influenza Inactive (IM) (oldterm) 2 07/11/08 Given Influenza Inactive (IM) (oldterm) 07/27/07 Given Pneumococcal Vaccine (oldterm) 11/13/07 Given Tetanus-Diphth Toxoids, Adult (oldterm) 08/25/04 G iven 1Result Comment: [10/28/2016] pharmacy 2Admin Note: given in clinic Medications ABD Pads (6X9) See Instructions, # 15 mL, Refills 11, Tot. Refills 11, INSTILL 4 DROPS INTO EACH EAR TWICE DAILY FOR 5 DAYS EACH MONTH / IC: CARBAMIDE PEROXIDE (EAR DROPS 6.5%), 10/01/19 8:32:00 EST Start Date: 10/01/19 Status: Ordered All Day Allergy 10 mg oral tablet See Instructions, # 30 tablet, Refills 5 Tot. Refills 5, TAKE 1 TABLET BY MOUTH DAILY IN THE AM FORSEASONAL ALLERGIES FROM DECEMBER THROUGH JUNE START 12/24/18 / END 07/25/19, [facility] Start Date: 06/02/19 Status: Ordered amLODIPine 10 mg oral tablet 10 mg, 1, tablet, By Mouth, Daily, # 90 tablet, Refills 1, Tot. Refills 1, Soft Stop, 10/02/19 14:12:00 EST, Route to Pharmacy Electronically, [facility], 162.56, cm, 02/12/19 10:36:00 EDT, Height Start Date: 10/02/19 Status: Ordered ANTACID 500 MG CHEWABLE TAB ANTACID 500 MG CHEWABLE TAB, See Instructions, # 90 each, Refills 3, Tot. Refills 3, Maintenance, TAKE 1 TABLET PO TID FOR OSTEOPOROSIS. MAY CRUSH TABLET PER DR CRANE FX [phone], 07/20/18 12:11:49EDT, Compound Start Date: 07/20/18 Status: Ordered bacitracin-polymyxin B topical 500 u-19777 u/gm ointment 1 applicator, Topically, 2 times a day, REPLACES BACITRACIN PER DR CRANE, # 30 Gm, 5 Refills, Maintenance, 02/08/19 16:54:40 EDT, 1 applicator Topically 2 times a day,Instr:REPLACES BACITRACIN PER DR CRANE Start Date: 02/08/19 Status: Ordered bisacodyl 10 mg rectal suppository See Instructions, ADMINISTER 1 SUPPOSITORY RECTALLY PRN IF MILK OF MAGNESIA IS INEFFECTIVE PER DR CRANE, # 8 supp, 11 Refills, Maintenance, 03/02/18 12:29:09 EDT Start Date: 03/02/18 Status: Ordered Blood Pressure Monitor See Instructions, 1, 0, 0, 06/11/07 11:11:37, PRN, HTN, ADS OPPTHS, [address] [address] Start Date: 06/11/07 Status: Ordered calcium carbonate 500 mg (200 mg elemental calcium) oral tablet, chewable 500 mg, 1, tablet, By Mouth, 3 times a day, PER DR CRANE, # 90 tablet, Refills 11, Tot. Refills 11, Maintenance, 12/09/19 14:35:00 EDT, Route to Pharmacy Electronically, [facility], 162.56, cm, 02/12/19 10:36:00 EDT, Height Start Date: 12/09/19 Stop Date: 12/03/20 Status: Ordered citalopram 10 mg oral tablet 10 mg, 1, tablet, By Mouth, Daily, # 30 tablet, Refills 0, Maintenance, 02/12/19 10:28:32 EDT Start Date: 02/12/19 Status: Ordered Colace sodium 100 mg oral capsule 100 mg, 1, capsule, By Mouth, 2 times a day, PRN, PER DR CRANE, # 60 capsule, Refills 5, Tot. Refills5, Maintenance, Constipation, 02/06/20 12:14:00 EDT, Route to Pharmacy Electronically, [facility], 162.56, cm, 02/12/19 10:36:00 EDT, Height Start Date: 02/06/20 Status: Ordered Dentagel 1.1% topical gel See Instructions, USE 1/4 INCH OF GEL TO BRUSH TEETH DAILY IN THE EVENING / BRUSH THOROUGHLY ALONG GUMLINE, # 56 Gm, 11 Refills, Maintenance, 08/06/19 13:51:27 EST, 30, USE 1/4 INCH OF GEL TO BRUSH TEETH DAILY IN THE EVENING / BRUSH THOROUGHLY ALONG G... Start Date: 08/06/19 Status: Ordered EARWAX TREATMENT DROPS 6.5% EARWAX TREATMENT DROPS 6.5%, See Instructions, # 1 each, Refills 11, Tot. Refills 11, Maintenance, USE DIRECTED FAX [phone], 10/01/19 11:14:00 EST, [facility];, [facility] Start Date: 10/01/19 Status: Ordered Milk of Magnesia 8% oral suspension 30 mL = 2.4 Gm, By Mouth, Daily at bedtime, PRN for constipation, 30ML QHS PRN FOR CONSTIPATION OR NO BM FOR 3DAYS, # 300 mL, 5 Refills, Maintenance, 11/20/18 6:45:19 EST, Suspension Start Date: 11/20/18 Status: Ordered MILLITRIUM TABLET See Instructions, 30, 11, 11, 06/20/08 13:07:29, TAKE 1 TABLET BY MOUTH DAILY (VITAMIN), [facility] [address] [place] [address], Constant Indicator, MILLITRIUM TABLET Start Date: 06/20/08 [...] bid prn nasal dryness PER DAWIT STOREY MAIL COURIER-C FAX [phone], 11/02/18 14:15:30 EST, Compound Start Date: 11/02/18 Status: Ordered Ocuflox 0.3% solution 2 drops, Eyes, Both, 4 times a day, # 10 mL, 0 Refills, Maintenance, 01/10/17 14:21:09, Ophth Solution, 2 drops Eyes, Both 4 times a day Start Date: 01/10/17 Status: Ordered Pravachol 40 mg oral tablet 1 tablet = 40 mg, By Mouth, Daily, # 90 tablet, 1 Refills, Maintenance, 09/05/19 15:59:53 EST, 162.56, cm, 02/12/19 10:36:41 EDT, Height Start Date: 09/05/19 Status: Ordered Prevident 1.1% topical gel See [...] PO 1/2 PRIOR TO APPT PER DR CARNE, # 30 each, Refills 0, Tot. Refills 0, Maintenance, 02/06/17 13:29:09, Instructions Replace Required Details, Route to Pharmacy Electronically, [id number]... Start Date: 02/06/17 Status: Ordered Senna 8.6 mg oral tablet See Instructions, PRN, TAKE 1 TABLET PO ON 2ND DAY OF NO BM IN THE EVENING FOR CONSTIPATION PER DR CRANE, # 100 tablet, Refills 11, Tot. Refills 11, Maintenance, for constipation, 09/20/18 15:56:55 EST, Instructions Replace Required Details, Route to Ph... Start Date: 09/20/18 Status: Ordered SUDOGEST 30 MG TABLETS SUDOGEST 30 MG TABLETS, See Instructions, # 30 each, Refills 11, Tot. Refills 11, Maintenance, TAKE30 MG Q6H PRN PER DR CRANE FAX [phone], 02/01/19 9:46:36 EDT, Compound Start Date: 02/01/19 Status: Ordered THERA CAPLETS THERA CAPLETS, See Instructions, # 30 each, Refills 5, Tot. Refills 5, Maintenance, TAKE ONE CAPLETBY MOUTH QD PER DR CRANE FAX [phone], 09/05/19 15:58:40 EST, Compound, 162.56, cm, 02/12/19 10:36:41 EDT, Height Start Date: 09/05/19 Status: Ordered Tinactin 1% spray 1 sprays, Topically, 2 times a day, # 120 mL, 1 Refills, Maintenance, 11/01/19 10:28:00 EST, [place], 1 sprays Topically 2 times a day, 162.56, cm, 02/12/19 10:36:00 EDT, Height Start Date: 11/01/19 Status: Ordered CHAKASSIN KUSHAL BERRY DM, See Instructions, # 420 mL, Refills 1, Tot. Refills 1, Maintenance, 10 ML PO Q4H PRN FORCOUGH AT BEDTIME PER DR CRANE FAX [phone], 04/23/18 12:14:04 EDT, Compound Start Date: 04/23/18 Status: Ordered Tylenol 325 mg oral tablet 650 mg, 2, tablet, By Mouth, Every 4 hours, PER DR CRANE, # 168 tablet, Refills 5, Tot. Refills 5, Maintenance, 10/04/19 10:27:00 EST, Route to Pharmacy Electronically, [facility], 162.56, cm, 02/12/19 10:36:00 EDT, Height [...] Active Underweight(Confirmed) Active Vitamin D deficiency(Confirmed) Active 23482; repeat 2020 2colo 2006 nl, repeat 2015 3Colonoscopy 2016 positive polyp, repeat 2020. 4colo 2015 Diagnosis Diagnosis Type Effective Dates Health Status Clinical Service Informant Vitamin D deficiency Discharge Diagnosis 02/24/20 Vital Signs Most recent to oldest [Reference Range]: 1 Height 162.56 cm (02/24/20 9:30 AM) Weight 57.7 kg (02/24/20 9:30 AM) Body Mass Index [18.5-24.99] 21.83 (02/24/20 9:30 AM) Blood Pressure [90-138/55-84 mm Hg] 140/ 66mm Hg *H* (02/24/20 9:30 AM) Mode of Delivery (Oxygen) Room air (02/24/20 9:30 AM) Blood pressure sites Arm, left (02/24/20 9:30 AM) Weight Obtained Via Standing scale (02/24/20 9:30 AM) Social History Social History Type Response Smoking Status Never smoker entered on: 02/01/16 Sex
--- OUTSIDE RECORDS SUMMARY | 2024-04-02 09:37 | XMS_ITS | Continuity of Care Document ---
Author Organization [facility] Salvatore Todd lt Address [address] [place] [address]- Care Team Providers Care Professor Of Theatre Name Role Phone Schuyler Crane MD Primary Care Physician [phone] [facility] 01[facility]22 - 02/26/22 [facility] Adult [address] [place] [address]- Allergies, Adverse Reactions, Alerts Substance Reaction Severity [...] Replace Required Details, Route to Pharmacy Electronically, [facility], 162.56, cm, 02/25/21 9:29:00 EDT, He... Start Date: 08/31/21 Status: Ordered amLODIPine 10 mg oral tablet See Instructions, TAKE 1 TABLET (10 MG) BY MOUTH DAILY IN AM FOR HYPERTENSION, # 30 tablet, 5 Refills, [facility], 162.56, cm, 02/25/21 9:29:00 EDT, Height Start Date: 09/30/21 Status: Ordered ANTACID 500 MG CHEWABLE TAB ANTACID 500 MG CHEWABLE TAB, See Instructions, # 90 each, Refills 3, Tot. Refills 3, Maintenance, TAKE 1 TABLET PO TID FOR OSTEOPOROSIS. MAY CRUSH TABLET PER DR ROSA MARIA CRUZ [phone], 07/20/18 12:11:49EDT, Compound Start Date: 07/20/18 Status: Ordered benzonatate 100 mg oral capsule 1 capsule, By Mouth, 3 times a day, PRN NEEDED FOR COUGH / IF NO IMPROVEMENT IN 3 DAYS NOTIFY / JAGRUTI CLAY, # 21 capsule, 0 Refills, [facility], 162.56, cm, 12/06/21 13:34:00 EDT, Height Start Date: 02/25/22 Status: Ordered bisacodyl 10 mg rectal suppository See Instructions, INSERT 1 SUPP (10MG) INTO RECTUM NEEDED IF MILK OF MAGNESIA INEFFECTIVE AFTER 8 HRS/BISAC- EVAC EQUIVALENT/ IF SUPPOSITORY INEFFECTIVE AFTER 4 HRS CALL MD, # 7 supp, 11 Refills, Acute, [facility], 162.56, cm, 02/25/21 9:29:00... Start Date: 04/15/21 Status: Ordered Blood Pressure Monitor See Instructions, 1, 0, 0, 06/11/07 11:11:37, PRN, HTN, ADS OPPTHS, [facility] [address] [address] Start Date: 06/11/07 Status: Ordered calcium carbonate 500 mg (200 mg elemental calcium) oral tablet, chewable See Instructions, TAKE 1 TABLET (500 MG) BY MOUTH 3 TIMES A DAY FOR OSTEOPOROSIS MAY CRUSH TABLET IC: CALCIUM CARBONATE, # 90 tablet, Refills 5, Instructions Replace Required Details, Route to Pharmacy Electronically, [facility], 162.56, cm, 11/23... Start Date: 02/25/22 Status: Ordered cetirizine 10 mg oral tablet 1 tablet, By Mouth, Daily in AM, FOR SEASONAL ALLERGIES FROM DECEMBER THROUGH JUNE (START 12/24) SEE ANCILLARY ORDERS., # 30 tablet, 5 Refills, [facility], 162.56, cm, 12/06/21 13:34:00 EDT, Height [...] 100 MG), # 60 capsule, 5 Refills, [facility], 162.56, cm, 12/06/21 13:34:00 EDT, Height Start Date: 01/13/22 Status: Ordered EARWAX TREATMENT DROPS 6.5% EARWAX TREATMENT DROPS 6.5%, See Instructions, # 1 each, Refills 11, Tot. 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 Start Date: 04/14/21 Status: Ordered pravastatin 40 mg oral tablet 1 tablet, By Mouth, Daily, IN PM FOR HYPERLIPIDEMIA., # 30 tablet, 5 Refills, [facility], 162.56, cm, 12/06/21 13:34:00 EDT, Height [...] MG Q6H PRN PER DR CRANE FAX [phone], 02/01/19 9:46:36 EDT, Compound Start Date: 02/01/19 Status: Ordered Suphedrin 30 mg oral tablet See Instructions, TAKE 1 TAB (30 MG) BY MOUTH EVERY 6 HRS NEEDED FOR NASAL CONGESTION/ SEE ANCILLARY ORDERS (SUDOGEST EQUIVALENT), # 30 tablet, 11 Refills, Acute, [facility], 162.56, cm, 02/24/20 9:30:00 EDT, Height Start Date: 05/22/20 Status: Ordered THERA CAPLETS THERA CAPLETS, See Instructions, # 30 each, Refills 5, Tot. Refills 5, Maintenance, TAKE ONE CAPLETBY MOUTH QD PER DR CRANE FAX [phone], 10/08/20 11:48:00 EST, Compound, 162.56, cm, 02/24/20 9:30:00 EDT, Height Start Date: 10/08/20 Status: Ordered Thera oral tablet See Instructions, TAKE 1 TABLET BY MOUTH DAILY IN THE AM (VITAMIN), # 30 tablet, 5 Refills, [facility], 30, TAKE 1 TABLET BY MOUTH [...] mL, 1 Refills, Maintenance, 12/01/20 8:15:00 EST, [place], [facility], 1 sprays Topically 2 times a day, 162.56, cm, 02/24/20 9:30:00 EDT, Height Start Date: 12/01/20 Status: Ordered JAMAL FATIMA, See Instructions, # 420 mL, Refills 1, Tot. Refills 1, Maintenance, 10 ML PO Q4H PRN FORCOUGH AT BEDTIME PER DR CRANE FAX [phone], 05/22/20 8:48:00 EDT, Compound, 162.56, cm, 02/24/20 [...] Seizure disorder(Confirmed) Active Vitamin D deficiency(Confirmed) Active 36824; repeat 2020 2colo 2006 nl, repeat 2015 3Colonoscopy 2016 positive polyp, repeat 2020. 4colo 2015 Social History Social History Type Response Smoking Status Never smoker entered on: 02/01/16 Sex
--- OUTSIDE RECORDS SUMMARY | 2024-04-02 09:37 | XMS_ITS | Continuity of Care Document ---
Author Organization [facility] Jyoti Todd lt Address [address] [place] [address]- Care Team Providers Care Home Mortgage Disclosure Act Specialist Name Role Phone Schuyler Crane MD Primary Care Physician [phone] [facility]): 08/09/23 - 09/08/23 [facility] Adult [address] [place] [address]- Allergies, Adverse Reactions, Alerts Substance Reaction Severity [...] Given Tetanus-Diphth Toxoids, Adult (oldterm) 08/25/04 G cristy 1Result Comment: Td - [facility]# [id number] 2Result Comment: PCV23 - [facility]# [id number] 3Result Comment: [facility]# [id number] 4Result Comment: [10/28/2016] pharmacy 5Admin Note: given [...] 10/14/22 8:03:00 EST, Route to Pharmacy Electronically, [facility], 162.56, cm, 07/04/22 8:33:00 EDT, Height Start Date: 10/14/22 Status: Ordered All Day Allergy 10 mg oral tablet See Instructions, TAKE 1 TABLET (10 MG) BY MOUTH DAILY IN THE AM FOR SEASONAL ALLERGIES FROM DECEMBER THROUGH JUNE (START 12/24 / END 07/25) SEE ANCILLARY ORDERS, # 30 tablet, 2 Refills, Maintenance, 04/13/23 14:33:00 EDT, [facility], 162.56, cm, 0... Start Date: 04/13/23 Status: Ordered amLODIPine 10 mg oral tablet 1 tablet, By Mouth, Daily in AM, FOR HYPERTENSION., # 30 tablet, 5 Refills, Maintenance, 04/19/23 23:11:00 EDT, [facility], 162.56, cm, 04/10/23 7:35:00 EDT, Height Start Date: 04/19/23 Status: Ordered ANTACID 500 MG CHEWABLE TAB ANTACID 500 MG CHEWABLE TAB, See Instructions, # 90 each, Refills 3, Tot. Refills 3, Maintenance, TAKE 1 TABLET PO TID FOR OSTEOPOROSIS. MAY CRUSH TABLET PER DR ROSA MARIA CRUZ [phone], 07/20/18 12:11:49EDT, Compound Start Date: 07/20/18 Status: Ordered benzonatate 100 mg oral capsule 1 capsule, By Mouth, 3 times a day, PRN NEEDED FOR COUGH / IF NO IMPROVEMENT IN 3 DAYS NOTIFY MD/ IC, JAGRUTI, # 21 capsule, 0 Refills, Maintenance, 02/17/23 8:57:00 EDT, [facility], 162.56, cm, 07/04/22 8:33:00 EDT, Height Start Date: 02/17/23 Status: Ordered bisacodyl 10 mg rectal suppository See Instructions, INSERT 1 SUPP (10MG) INTO RECTUM NEEDED IF MILK OF MAGNESIA INEFFECTIVE AFTER 8 HRS/BISAC- EVAC EQUIVALENT/ IF SUPPOSITORY INEFFECTIVE AFTER 4 HRS CALL MD, # 7 supp, 11 Refills, Acute, [facility], 162.56, cm, 02/25/21 9:29:00... Start Date: 04/15/21 Status: Ordered Blood Pressure Monitor See Instructions, 1, 0, 0, 06/11/07 11:11:37, PRN, HTN, ADS OPPTHS, [facility] [place] [address] Start Date: 06/11/07 Status: Ordered calcium carbonate 500 mg (200 mg elemental calcium) oral tablet, chewable 1, tablet, By Mouth, 3 times a day, CRUSH. IC: CALCIUM CARBONATE, # 90 tablet, Refills 5, Maintenance, 02/17/23 8:57:00 EDT, Route to Pharmacy Electronically, [facility], 162.56, cm, 07/04/22 8:33:00 EDT, Height Start Date: 02/17/23 Status: Ordered carbamide peroxide 6.5% otic solution See Instructions, INSTILL 4 DROPS INTO EACH EAR TWICE DAILY FOR 5 DAYS EACH MONTH / IC: CARBAMIDE PEROXIDE (EAR DROPS 6.5%), # 15 mL, 11 Refills, Maintenance, 09/01/23 9:17:00 EST, [facility], 30, INSTILL 4 DROPS INTO EACH [...] day, # 60 capsule, 5 Refills, Maintenance, 06/06/23 14:01:00 EDT, [facility], 162.56, cm, 05/15/23 9:41:00 EDT, Height Start Date: 06/06/23 Status: Ordered EARWAX TREATMENT DROPS 6.5% EARWAX TREATMENT DROPS 6.5%, See Instructions, # 1 each, Refills 11, Tot. Refills 11, Maintenance, USE DIRECTED FAX [phone], 12/02/20 14:40:00 EST, [facility];, Compound, 162.56, cm, 02/24/20 9:30:00 EDT, Height Start Date: 12/02/20 Status: Ordered fluoride 1.1% topical gel See Instructions, USE 1/4 INCH OF GEL TO BRUSH TEETH DAILY IN THE EVENING / BRUSH THOROUGHLY ALONG GUMLINE IC: DENTAGEL, # 56 Gm, 11 Refills, [facility], 30, USE 1/4 INCH OF GEL TO BRUSH TEETH DAILY IN THE EVENING / BRUSH THOROUGHLY ALONG GUMLINE... Start Date: 01/28/22 Status: Ordered Carolyn-jag 8.6 mg oral tablet 1 tablet, By Mouth, Daily in PM, FOR CONSTIPATION / SEE MILK OF MAG ORDERS / IC: SENNA 8.6 MG, # 15tablet, 6 Refills, Maintenance, 10/14/22 8:03:00 EST, [facility], 162.56, cm, 07/04/22 8:33:00EDT, Height Start Date: 10/14/22 Status: Ordered Hospital Bed See Instructions, # 1 each, Refills 0, Tot. Refills 0, Maintenance, [facility] DX: Left hip fracture, seizure dis, impulse control disorder, atypical autism. Duration ongoing NPI#[id number] Height: 5'6 Weight: 137lbs, 03/22/23 13:55:... Start Date: 03/22/23 Status: Ordered Milk of Magnesia 8% oral suspension See Instructions, TAKE 2 TABLESPOONFULS (30 ML) BY MOUTH AT BEDTIME NEEDED FOR CONSTIPATION ON DAY 3 OF NO BM / SEE BISCOLAX SUPP ORDER 30ML=2,400MG, # 300 mL, 5 Refills, Acute, [facility], 162.56, cm, 02/24/20 9:30:00 EDT, Height Start Date: 10/30/20 Status: Ordered MILLITRIUM TABLET See Instructions, 30, 11, 11, 06/20/08 13:07:29, TAKE 1 TABLET BY MOUTH DAILY (VITAMIN), [address] [address], Constant Indicator, MILLITRIUM TABLET Start Date: 06/20/08 Status: Ordered OCEAN SALINE NASAL MIST OCEAN SALINE NASAL MIST, See Instructions, # 1 each, Refills 2, Tot. Refills 2, Maintenance, use bid prn nasal dryness, 11/06/18 9:57:36 EST, Compound Start Date: 11/06/18 Status: Ordered Polysporin 500 u-23917 u/gm ointment See Instructions, APPLY A THIN LAYER TOPICALLY TWICE DAILY NEEDED TO RED, IRRITATED SKIN X 7 DAYS / SEE ANCILLARY ORDERS (BACITRACIN-POLYMYXIN OINTMENT), # 28.3 Gm, 5 Refills, Maintenance, 04/18/23 8:59:00 EDT, [facility], 7, APPLY A THIN LAYE... Start Date: 04/18/23 Status: Ordered pravastatin 40 mg oral tablet See Instructions, TAKE 1 TABLET (40 MG) BY MOUTH DAILY IN PM FOR HYPERLIPIDEMIA, # 30 tablet, 5 Refills, Maintenance, 02/17/23 13:00:00 EDT, [facility], 162.56, cm, 07/04/22 8:33:00 EDT, Height Start Date: 02/17/23 Status: Ordered Profola oral tablet 1 tablet, By Mouth, Daily, # 30 tablet, 11 Refills, Maintenance, 05/19/23 10:41:00 EDT, [facility], Partial fill upon patient request if [...] (SUPHEDRIN EQUIVALENT), # 30 tablet, 11 Refills, [facility], 162.56, cm, 03/24/22 10:31:00 EDT, Height Start Date: 04/22/22 Status: Ordered SUDOGEST 30 MG TABLETS SUDOGEST 30 MG TABLETS, See Instructions, # 30 each, Refills 11, Tot. Refills 11, Maintenance, TAKE30 MG Q6H PRN PER DR CRANE FAX [phone], 02/01/19 9:46:36 EDT, Compound Start Date: 02/01/19 Status: Ordered TINACTIN 1% AEROSOL POWDER 1 Aerosol TINACTIN 1% AEROSOL POWDER 1 Aerosol, 2, sprays, Topically, 2 times a day, PRN, # 133 Gm, 1 Refills, 162.56, cm, 02/25/21 9:29:00 EDT, Height Start Date: 11/05/21 Status: Ordered Tinactin 1% spray 1 sprays, Topically, 2 times a day, # 120 mL, 1 Refills, Maintenance, 12/01/20 8:15:00 EST, [place], [facility], 1 sprays Topically 2 times a day, 162.56, cm, 02/24/20 9:30:00 EDT, Height Start Date: 12/01/20 Status: Ordered TUSSIN DM TUSSIN DM, See Instructions, # 420 mL, Refills 1, Tot. Refills 1, Maintenance, 10 ML PO Q4H PRN FORCOUGH AT BEDTIME PER DR CRANE FAX [phone], 05/22/20 8:48:00 EDT, [facility], 162.56, cm, 02/24/20 [...] Status Informant Colonoscopy 1, 2 Confirmed Active Gynecomastia Confirmed 12/31/09 Active Status post-operative repair of closed fracture of left hip Confirmed Active Left hip hemiarthoplasty 02/26/2023 Confirmed Active Hypercholesterolemia Confirmed Active Hypertension Confirmed Active Microcephaly Confirmed Active Periodontal disease Confirmed Active Colon polyp 3, 4 Confirmed Active Pressure injury of skin Confirmed Active Seizure disorder Confirmed Active Vitamin D deficiency Confirmed Active 13379; repeat 2020 2colo 2005 nl, repeat 2015 3Colonoscopy 2016 positive polyp, repeat 2020. 4colo 2015 Social History Social History Type Response Smoking Status Never smoker entered on: 02/01/16 Sex Patient Care team information Care Team Personnel Name: Schuyler Crane MD Position: S Physician - Primary Care Member Role: PCP Address: Address: [address] [place] [address] [place] [address]- Care Team Related Persons Name: ELLE ALMEIDA Address: home [address] [place], [place] [address]H[place] [id number] Name: ZAK SHELL
--- OUTSIDE RECORDS SUMMARY | 2024-04-02 09:38 | XMS_ITS | Continuity of Care Document ---
Author Organization [facility] Todd lt Address [address] [place] [address]- Care Team Providers Care Gynaecological Oncologist Name Role Phone Schuyler Crane MD Primary Care Physician [phone] [facility]21 - 04/10/21 [facility] Adult [address] [place] [address]- Allergies, Adverse Reactions, Alerts Substance Reaction Severity [...] Refills 1, Tot. Refills 1, Soft Stop, 04/01/21 15:49:00 EDT, Route to Pharmacy Electronically, [facility], 162.56, cm, 02/25/21 9:29:00 EDT, Height Start Date: 04/01/21 Status: Ordered ANTACID 500 MG CHEWABLE TAB ANTACID 500 MG CHEWABLE TAB, See Instructions, # 90 each, Refills 3, Tot. Refills 3, Maintenance, TAKE 1 TABLET PO TID FOR OSTEOPOROSIS. MAY CRUSH TABLET PER DR CRANE FX [phone], 07/20/18 12:11:49EDT, Compound Start Date: 07/20/18 Status: Ordered Bisco-Lax 10 mg rectal suppository See Instructions, INSERT 1 SUPP (10MG) INTO RECTUM NEEDED IF MILK OF MAGNESIA INEFFECTIVE AFTER 8 HRS/BISAC- EVAC EQUIVALENT/ IF SUPPOSITORY INEFFECTIVE AF, # 7 supp, 11 Refills, Acute, [facility], 162.56, cm, 02/24/20 9:30:00 EDT, Height Start Date: 03/30/20 Status: Ordered Blood Pressure Monitor See Instructions, 1, 0, 0, 06/11/07 11:11:37, PRN, HTN, ADS OPPTHS, [facility] [place] [address] Start Date: 06/11/07 Status: Ordered calcium carbonate 500 mg (200 mg elemental calcium) oral tablet, chewable 500 mg, 1, tablet, By Mouth, 3 times a day, PER DR CRANE, # 90 tablet, Refills 5, Tot. Refills 5, Maintenance, 04/02/21 14:35:00 EDT, Route to Pharmacy Electronically, [facility], 162.56, cm, 02/25/21 9:29:00 EDT, Height Start Date: 04/02/21 Stop Date: 09/29/21 Status: Ordered cetirizine 10 mg oral tablet See Instructions, TAKE 1 TABLET (10 MG) BY MOUTH DAILY IN THE AM FOR SEASONAL ALLERGIES FROM DECEMBER THROUGH JUNE (START 12/24) SEE ANCILLARY ORDERS, # 30 tablet, 5 Refills, Maintenance, [facility], 162.56, cm, 02/25/21 9:29:00 EDT, He... Start Date: 02/25/21 Status: Ordered cetirizine 10 mg oral tablet 1 tablet, By Mouth, Daily in AM, FOR SEASONAL ALLERGIES FROM DECEMBER THROUGH JUNE (START 12/24) SEE ANCILLARY ORDERS., # 30 tablet, 5 Refills, Maintenance, 02/25/21 13:04:00 EDT, [facility], 162.56, cm, 02/25/21 9:29:00 EDT, Height [...] Gm, 11 Refills, Maintenance, 08/07/20 11:11:00 EST, [facility], 30, USE 1/4 INCH OF GEL TO BRUSH TEETH DAILY IN THE EVENING / BRUSH T... Start Date: 08/07/20 Status: Ordered docusate sodium 100 mg oral capsule 1 capsule, By Mouth, 2 times a day, # 60 capsule, 5 Refills, Maintenance, 01/28/21 15:23:00 EDT, [facility], 162.56, cm, 02/24/20 9:30:00 EDT, Height Start Date: 01/28/21 Status: Ordered EARWAX TREATMENT DROPS 6.5% EARWAX TREATMENT DROPS 6.5%, See Instructions, # 1 each, Refills 11, Tot. Refills 11, Maintenance, USE DIRECTED FAX [phone], 12/02/20 14:40:00 EST, [facility];, [facility], 162.56, cm, 02/24/20 9:30:00 EDT, Height Start Date: 12/02/20 Status: Ordered Milk of Magnesia 8% oral suspension See Instructions, TAKE 2 TABLESPOONFULS (30 ML) BY MOUTH AT BEDTIME NEEDED FOR CONSTIPATION ON DAY 3 OF NO BM / SEE BISCOLAX SUPP ORDER 30ML=2,400MG, # 300 mL, 5 Refills, Acute, [facility], 162.56, cm, 02/24/20 9:30:00 EDT, Height Start Date: 10/30/20 Status: Ordered MILLITRIUM TABLET See Instructions, 30, 11, 11, 06/20/08 13:07:29, TAKE 1 TABLET BY MOUTH DAILY (VITAMIN), [address] [address], Constant Indicator, MILLITRIUM TABLET Start Date: 06/20/08 [...] bid prn nasal dryness PER DAWIT STOREY COMPUTER DESIGNER-C FAX [phone], 11/02/18 14:15:30 EST, Compound Start Date: 11/02/18 Status: Ordered Ocuflox 0.3% solution 2 drops, Eyes, Both, 4 times a day, # 10 mL, 0 Refills, Maintenance, 01/10/17 14:21:09, Ophth Solution, 2 drops Eyes, Both 4 times a day Start Date: 01/10/17 Status: Ordered Polysporin 500 u-43454 u/gm ointment See Instructions, APPLY A THIN LAYER TOPICALLY TWICE DAILY NEEDED TO RED, IRRITATED SKIN X 7 DAYS / SEE ANCILLARY ORDERS (BACITRACIN-POLYMYXIN OINTMENT), # 28.3 Gm, 5 Refills, Acute, [facility], 7, APPLY A THIN LAYER TOPICALLY TWICE DAILY N... Start Date: 03/30/20 Status: Ordered Polysporin 500 u-92808 u/gm ointment See Instructions, APPLY A THIN LAYER TOPICALLY TWICE DAILY NEEDED TO RED, IRRITATED SKIN X 7 DAYS / SEE ANCILLARY ORDERS (BACITRACIN-POLYMYXIN OINTMENT), # 28.3 Gm, 5 Refills, Acute, [facility], 7, APPLY A THIN LAYER TOPICALLY TWICE DAILY N... Start Date: 03/30/20 Status: Ordered pravastatin 40 mg oral tablet 1 tablet, By Mouth, Daily, IN PM FOR HYPERLIPIDEMIA., # 30 tablet, 5 Refills, Maintenance, 03/05/2111:55:00 EDT, [facility], 162.56, cm, 02/25/21 9:29:00 EDT, Height Start Date: 03/05/21 Status: Ordered Prevident 1.1% topical gel See [...] MG Q6H PRN PER DR CRANE FAX [phone], 02/01/19 9:46:36 EDT, Compound Start Date: 02/01/19 Status: Ordered Suphedrin 30 mg oral tablet See Instructions, TAKE 1 TAB (30 MG) BY MOUTH EVERY 6 HRS NEEDED FOR NASAL CONGESTION/ SEE ANCILLARY ORDERS (SUDOGEST EQUIVALENT), # 30 tablet, 11 Refills, Acute, [facility], 162.56, cm, 02/24/20 9:30:00 EDT, Height Start Date: 05/22/20 Status: Ordered THERA CAPLETS THERA CAPLETS, See Instructions, # 30 each, Refills 5, Tot. Refills 5, Maintenance, TAKE ONE CAPLETBY MOUTH QD PER DR CRANE FAX [phone], 10/08/20 11:48:00 EST, [facility], 162.56, cm, 02/24/20 9:30:00 EDT, Height Start Date: 10/08/20 Status: Ordered Thera oral tablet 1 tablet, By Mouth, Daily in AM, VITAMIN., # 30 tablet, 5 Refills, Maintenance, 03/05/21 11:55:00 EDT, [facility], 30, TAKE 1 TABLET BY MOUTH DAILY IN THE AM (VITAMIN), 162.56, cm, 02/25/21 9:29:00 EDT, Height Start Date: 03/05/21 Status: Ordered Tinactin 1% spray 1 sprays, Topically, 2 times a day, # 120 mL, 1 Refills, Maintenance, 12/01/20 8:15:00 EST, [place], [facility], 1 sprays Topically 2 times a day, 162.56, cm, 02/24/20 9:30:00 EDT, Height Start Date: 12/01/20 Status: Ordered TUSSIN DM TUSSIN DM, See Instructions, # 420 mL, Refills 1, Tot. Refills 1, Maintenance, 10 ML PO Q4H PRN FORCOUGH AT BEDTIME PER DR CRANE FAX [phone], 05/22/20 8:48:00 EDT, Compound, 162.56, cm, 02/24/20 9:30:00 EDT, Height Start Date: 05/22/20 Status: Ordered Tylenol 325 mg oral tablet 650 mg, 2, tablet, By Mouth, Every 4 hours, PER DR CRANE, # 168 tablet, Refills 5, Tot. Refills 5, Maintenance, 10/04/19 10:27:00 EST, Route to Pharmacy Electronically, [facility], 162.56, cm, 02/12/19 10:36:00 EDT, Height [...] Active Underweight(Confirmed) Active Vitamin D deficiency(Confirmed) Active 30978; repeat 2020 2colo 2006 nl, repeat 2015 3Colonoscopy 2016 positive polyp, repeat 2020. 4colo 2015 Social History Social History Type Response Smoking Status Never smoker entered on: 02/01/16 Sex
--- OUTSIDE RECORDS SUMMARY | 2024-04-02 09:38 | XMS_ITS | Continuity of Care Document ---
Author Organization [facility] [place] Todd lt Address [address] [place] [address]- Care Team Providers Care Tribal Judge Name Role Phone Schuyler Crane MD Primary Care Physician [phone] [facility] 04[facility]07[facility]23 - 05/07/23 [facility] Adult [address] [place] [address]- Allergies, Adverse Reactions, Alerts Substance Reaction Severity [...] 08/25/04 G cristy 1Result Comment: Td - [facility] [place]# [id number] 2Result Comment: PCV23 - [facility] [place]# [id number] 3Result Comment: [facility] [place]# [id number] 4Result Comment: [10/28/2016] pharmacy 5Admin Note: given [...] 10/14/22 8:03:00 EST, Route to Pharmacy Electronically, [facility], 162.56, cm, 07/04/22 8:33:00 EDT, Height Start Date: 10/14/22 Status: Ordered All Day Allergy 10 mg oral tablet See Instructions, TAKE 1 TABLET (10 MG) BY MOUTH DAILY IN THE AM FOR SEASONAL ALLERGIES FROM DECEMBER THROUGH JUNE (START 12/24 / END 07/25) SEE ANCILLARY ORDERS, # 30 tablet, 2 Refills, Maintenance, 04/13/23 14:33:00 EDT, [facility], 162.56, cm, 0... Start Date: 04/13/23 Status: Ordered amLODIPine 10 mg oral tablet 1 tablet, By Mouth, Daily in AM, FOR HYPERTENSION., # 30 tablet, 5 Refills, Maintenance, 04/19/23 23:11:00 EDT, [facility], 162.56, cm, 04/10/23 7:35:00 EDT, Height Start Date: 04/19/23 Status: Ordered ANTACID 500 MG CHEWABLE TAB ANTACID 500 MG CHEWABLE TAB, See Instructions, # 90 each, Refills 3, Tot. Refills 3, Maintenance, TAKE 1 TABLET PO TID FOR OSTEOPOROSIS. MAY CRUSH TABLET PER DR ROSA MARIA CRUZ [phone], 07/20/18 12:11:49EDT, Compound Start Date: 07/20/18 Status: Ordered benzonatate 100 mg oral capsule 1 capsule, By Mouth, 3 times a day, PRN NEEDED FOR COUGH / IF NO IMPROVEMENT IN 3 DAYS NOTIFY MD/ IC, JAGRUTI, # 21 capsule, 0 Refills, Maintenance, 02/17/23 8:57:00 EDT, [facility], 162.56, cm, 07/04/22 8:33:00 EDT, Height Start Date: 02/17/23 Status: Ordered bisacodyl 10 mg rectal suppository See Instructions, INSERT 1 SUPP (10MG) INTO RECTUM NEEDED IF MILK OF MAGNESIA INEFFECTIVE AFTER 8 HRS/BISAC- EVAC EQUIVALENT/ IF SUPPOSITORY INEFFECTIVE AFTER 4 HRS CALL MD, # 7 supp, 11 Refills, Acute, [facility], 162.56, cm, 02/25/21 9:29:00... Start Date: 04/15/21 Status: Ordered Blood Pressure Monitor See Instructions, 1, 0, 0, 06/11/07 11:11:37, PRN, HTN, ADS OPPTHS, [place] [address] Start Date: 06/11/07 Status: Ordered calcium carbonate 500 mg (200 mg elemental calcium) oral tablet, chewable 1, tablet, By Mouth, 3 times a day, CRUSH. IC: CALCIUM CARBONATE, # 90 tablet, Refills 5, Maintenance, 02/17/23 8:57:00 EDT, Route to Pharmacy Electronically, [facility], 162.56, cm, 07/04/22 8:33:00 EDT, Height Start Date: 02/17/23 Status: Ordered carbamide peroxide 6.5% otic solution See Instructions, INSTILL 4 DROPS INTO EACH EAR TWICE DAILY FOR 5 DAYS EACH MONTH / IC: CARBAMIDE PEROXIDE (EAR DROPS 6.5%), # 15 mL, 11 Refills, Maintenance, 08/21/22 7:49:00 EST, [facility], 30, INSTILL 4 DROPS INTO EACH EAR TWICE DAILY FOR 5 D... Start Date: 08/21/22 Status: Ordered citalopram 10 mg oral tablet 10 mg, 1, tablet, By Mouth, Daily, # 30 tablet, Refills 0, Maintenance, 02/12/19 10:28:32 EDT Start Date: 02/12/19 Status: Ordered docusate sodium 100 mg oral capsule See Instructions, TAKE 1 CAPSULE (100 MG) BY MOUTH TWICE DAILY FOR CONSTIPATION (DOCUSATE SODIUM 100 MG), # 60 capsule, 5 Refills, Maintenance, 10/20/22 6:09:00 EST, [facility], 162.56, cm, 07/04/22 8:33:00 EDT, Height Start Date: 10/20/22 Status: Ordered EARWAX TREATMENT DROPS 6.5% EARWAX TREATMENT DROPS 6.5%, See Instructions, # 1 each, Refills 11, Tot. Refills 11, Maintenance, USE DIRECTED FAX [phone], 12/02/20 14:40:00 EST, [facility], 162.56, cm, 02/24/20 9:30:00 EDT, Height Start Date: 12/02/20 Status: Ordered fluoride 1.1% topical gel See Instructions, USE 1/4 INCH OF GEL TO BRUSH TEETH DAILY IN THE EVENING / BRUSH THOROUGHLY ALONG GUMLINE IC: DENTAGEL, # 56 Gm, 11 Refills, [facility], 30, USE 1/4 INCH OF GEL TO BRUSH TEETH DAILY IN THE EVENING / BRUSH THOROUGHLY ALONG GUMLINE... Start Date: 01/28/22 Status: Ordered Carolyn-jag 8.6 mg oral tablet 1 tablet, By Mouth, Daily in PM, FOR CONSTIPATION / SEE MILK OF MAG ORDERS / IC: SENNA 8.6 MG, # 15tablet, 6 Refills, Maintenance, 10/14/22 8:03:00 EST, [facility], 162.56, cm, 07/04/22 8:33:00EDT, Height Start Date: 10/14/22 Status: Ordered Hospital Bed See Instructions, # 1 each, Refills 0, Tot. Refills 0, Maintenance, [facility] DX: Left hip fracture, seizure dis, impulse control disorder, atypical autism. Duration ongoing NPI#[id number] Height: 5'6 Weight: 137lbs, 03/22/23 13:55:... Start Date: 03/22/23 Status: Ordered Milk of Magnesia 8% oral suspension See Instructions, TAKE 2 TABLESPOONFULS (30 ML) BY MOUTH AT BEDTIME NEEDED FOR CONSTIPATION ON DAY 3 OF NO BM / SEE BISCOLAX SUPP ORDER 30ML=2,400MG, # 300 mL, 5 Refills, Acute, [facility], 162.56, cm, 02/24/20 9:30:00 EDT, Height Start Date: 10/30/20 Status: Ordered MILLITRIUM TABLET See Instructions, 30, 11, 11, 06/20/08 13:07:29, TAKE 1 TABLET BY MOUTH DAILY (VITAMIN), [address] [address], Constant Indicator, MILLITRIUM TABLET Start Date: 06/20/08 Status: Ordered OCEAN SALINE NASAL MIST OCEAN SALINE NASAL MIST, See Instructions, # 1 each, Refills 2, Tot. Refills 2, Maintenance, use bid prn nasal dryness, 11/06/18 9:57:36 EST, Compound Start Date: 11/06/18 Status: Ordered Polysporin 500 u-96988 u/gm ointment See Instructions, APPLY A THIN LAYER TOPICALLY TWICE DAILY NEEDED TO RED, IRRITATED SKIN X 7 DAYS / SEE ANCILLARY ORDERS (BACITRACIN-POLYMYXIN OINTMENT), # 28.3 Gm, 5 Refills, Maintenance, 04/18/23 8:59:00 EDT, [facility], 7, APPLY A THIN LAYE... Start Date: 04/18/23 Status: Ordered pravastatin 40 mg oral tablet See Instructions, TAKE 1 TABLET (40 MG) BY MOUTH DAILY IN PM FOR HYPERLIPIDEMIA, # 30 tablet, 5 Refills, Maintenance, 02/17/23 13:00:00 EDT, [facility], 162.56, cm, 07/04/22 8:33:00 EDT, Height Start Date: 02/17/23 Status: Ordered RisperDAL 0.25 mg oral tablet [...] (SUPHEDRIN EQUIVALENT), # 30 tablet, 11 Refills, [facility], 162.56, cm, 03/24/22 10:31:00 EDT, Height Start Date: 04/22/22 Status: Ordered SUDOGEST 30 MG TABLETS SUDOGEST 30 MG TABLETS, See Instructions, # 30 each, Refills 11, Tot. Refills 11, Maintenance, TAKE30 MG Q6H PRN PER DR CRANE FAX [phone], 02/01/19 9:46:36 EDT, Compound Start Date: 02/01/19 Status: Ordered THERA CAPLETS THERA CAPLETS, See Instructions, # 30 each, Refills 5, Tot. Refills 5, Maintenance, TAKE ONE CAPLETBY MOUTH QD PER DR CRANE FAX [phone], 10/08/20 11:48:00 EST, [facility], 162.56, cm, 02/24/20 9:30:00 EDT, Height Start Date: 10/08/20 Status: Ordered Thera oral tablet See Instructions, TAKE 1 TABLET BY MOUTH DAILY IN THE AM (VITAMIN), # 30 tablet, 5 Refills, Maintenance, 02/23/23 10:45:00 EDT, [facility], 30, TAKE 1 TABLET BY MOUTH DAILY IN THE AM (VITAMIN), 162.56, cm, 07/04/22 8:33:00 EDT, Height Start Date: 02/23/23 Status: Ordered TINACTIN 1% AEROSOL POWDER 1 Aerosol TINACTIN 1% AEROSOL POWDER 1 Aerosol, 2, sprays, Topically, 2 times a day, PRN, # 133 Gm, 1 Refills, 162.56, cm, 02/25/21 9:29:00 EDT, Height Start Date: 11/05/21 Status: Ordered Tinactin 1% spray 1 sprays, Topically, 2 times a day, # 120 mL, 1 Refills, Maintenance, 12/01/20 8:15:00 EST, [place], 1 sprays Topically 2 times a day, 162.56, cm, 02/24/20 9:30:00 EDT, Height Start Date: 12/01/20 Status: Ordered TUSSIN DM TUSSIN KUSHAL, See Instructions, # 420 mL, Refills 1, Tot. Refills 1, Maintenance, 10 ML PO Q4H PRN FORCOUGH AT BEDTIME PER DR CRANE FAX [phone], 05/22/20 8:48:00 EDT, Compound, 162.56, cm, 02/24/20 [...] List Condition Confirmation Course Effective Dates Status H ealth Status Informant Colonoscopy 1, 2 Confirmed Active Gynecomastia Confirmed 12/31/09 Active Hypercholesterolemia Confirmed Active Hypertension Confirmed Active Microcephaly Confirmed Active Periodontal disease Confirmed Active Colon polyp 3, 4 Confirmed Active Seizure disorder Confirmed Active Vitamin D deficiency Confirmed Active 19400; repeat 2020 2colo 2006 nl, repeat 2015 3Colonoscopy 2016 positive polyp, repeat 2020. 4colo 2015 Social History Social History Type Response Smoking Status Never smoker entered on: 02/01/16 Sex Patient Care team information Care Team Personnel Name: Rosa Maria HUSTON, Schuyler Pope Position: [facility] Physician - Primary Care Member Role: PCP Address: Address: [address] [place] [address]- Care Team Related Persons Name: ELLE ALMEIDA Address: home [address] [place] [id number] Name: ZAK SHELL
--- OUTSIDE RECORDS SUMMARY | 2024-04-02 09:38 | XMS_ITS | Continuity of Care Document ---
Author Organization [facility] [place] Todd lt Address [address] [place] [address]- Care Team Providers Care Harvest Contractor Name Role Phone Schuyler Crane MD Primary Care Physician [phone] [facility] 10[facility]23 - 11/01/23 [facility] Adult [address] [place] [address]- Allergies, Adverse Reactions, Alerts Substance Reaction Severity [...] 08/25/04 G cristy 1Result Comment: Td - [facility]# [id number] 2Result Comment: PCV23 - [facility]# [id number] 3Result Comment: [facility]# [id number] 4Result Comment: [10/28/2016] pharmacy 5Admin Note: given [...] 10/14/22 8:03:00 EST, Route to Pharmacy Electronically, [facility], 162.56, cm, 07/04/22 8:33:00 EDT, Height Start Date: 10/14/22 Status: Ordered All Day Allergy 10 mg oral tablet See Instructions, TAKE 1 TABLET (10 MG) BY MOUTH DAILY IN THE AM FOR SEASONAL ALLERGIES FROM DECEMBER THROUGH JUNE (START 12/24 / END 07/25) SEE ANCILLARY ORDERS, # 30 tablet, 2 Refills, Maintenance, 04/13/23 14:33:00 EDT, [facility], 162.56, cm, 0... Start Date: 04/13/23 Status: Ordered amLODIPine 10 mg oral tablet 1 tablet, By Mouth, Daily in AM, FOR HYPERTENSION., # 30 tablet, 5 Refills, Maintenance, 10/25/23 0:22:00 EST, [facility], 162.56, cm, 10/03/23 9:00:00 EST, Height Start Date: 10/25/23 Status: Ordered ANTACID 500 MG CHEWABLE TAB ANTACID 500 MG CHEWABLE TAB, See Instructions, # 90 each, Refills 3, Tot. Refills 3, Maintenance, TAKE 1 TABLET PO TID FOR OSTEOPOROSIS. MAY CRUSH TABLET PER DR CRANE FX [phone], 07/20/18 12:11:49EDT, Compound Start Date: 07/20/18 Status: Ordered benzonatate 100 mg oral capsule 1 capsule, By Mouth, 3 times a day, PRN NEEDED FOR COUGH / IF NO IMPROVEMENT IN 3 DAYS NOTIFY MD/ IC, JAGRUTI, # 21 capsule, 0 Refills, Maintenance, 10/05/23 12:01:00 EST, [facility], 162.56, cm, 10/03/23 9:00:00 EST, Height Start Date: 10/05/23 Status: Ordered bisacodyl 10 mg rectal suppository See Instructions, INSERT 1 SUPP (10MG) INTO RECTUM NEEDED IF MILK OF MAGNESIA INEFFECTIVE AFTER 8 HRS/BISAC- EVAC EQUIVALENT/ IF SUPPOSITORY INEFFECTIVE AFTER 4 HRS CALL MD, # 7 supp, 11 Refills, Acute, [facility], 162.56, cm, 02/25/21 9:29:00... Start Date: 04/15/21 Status: Ordered Blood Pressure Monitor See Instructions, 1, 0, 0, 06/11/07 11:11:37, PRN, HTN, ADS OPPTHS, [place] [address] Start Date: 06/11/07 Status: Ordered calcium carbonate 500 mg (200 mg elemental calcium) oral tablet, chewable 1, tablet, By Mouth, 3 times a day, CRUSH. IC: CALCIUM CARBONATE, # 90 tablet, Refills 5, Maintenance, 10/02/23 8:50:00 EST, Route to Pharmacy Electronically, [facility], 162.56, cm, 09/19/23 10:28:00 EST, Height Start Date: 10/02/23 Status: Ordered carbamide peroxide 6.5% otic solution See Instructions, INSTILL 4 DROPS INTO EACH EAR TWICE DAILY FOR 5 DAYS EACH MONTH / IC: CARBAMIDE PEROXIDE (EAR DROPS 6.5%), # 15 mL, 11 Refills, Maintenance, 09/01/23 9:17:00 EST, [facility], 30, INSTILL 4 DROPS INTO EACH [...] capsule, 5 Refills, Maintenance, 06/06/23 14:01:00 EDT, [facility], 162.56, cm, 05/15/23 9:41:00 EDT, Height Start Date: 06/06/23 Status: Ordered EARWAX TREATMENT DROPS 6.5% EARWAX TREATMENT DROPS 6.5%, See Instructions, # 1 each, Refills 11, Tot. Refills 11, Maintenance, USE DIRECTED FAX [phone], 12/02/20 14:40:00 EST, [facility];, [facility], 162.56, cm, 02/24/20 9:30:00 EDT, Height Start Date: 12/02/20 Status: Ordered fluoride 1.1% topical gel See Instructions, USE 1/4 INCH OF GEL TO BRUSH TEETH DAILY IN THE EVENING / BRUSH THOROUGHLY ALONG GUMLINE IC: DENTAGEL, # 56 Gm, 11 Refills, Maintenance, 09/21/23 16:44:00 EST, [facility], 30, USE 1/4 INCH OF GEL TO BRUSH TEETH DAILY IN THE EVEN... Start Date: 09/21/23 Status: Ordered Carolyn-jag 8.6 mg oral tablet 1 tablet, By Mouth, Daily in PM, FOR CONSTIPATION / SEE MILK OF MAG ORDERS / IC: SENNA 8.6 MG, # 15tablet, 6 Refills, Maintenance, 10/14/22 8:03:00 EST, [facility], 162.56, cm, 07/04/22 8:33:00EDT, Height Start Date: 10/14/22 Status: Ordered Hospital Bed See Instructions, # 1 each, Refills 0, Tot. Refills 0, Maintenance, [facility] DX: Left hip fracture, seizure dis, impulse control disorder, atypical autism. Duration ongoing NPI#[id number] Height: 5'6 Weight: 137lbs, 03/22/23 13:55:... Start Date: 03/22/23 Status: Ordered Milk of Magnesia 8% oral suspension See Instructions, TAKE 2 TABLESPOONFULS (30 ML) BY MOUTH AT BEDTIME NEEDED FOR CONSTIPATION ON DAY 3 OF NO BM / SEE BISCOLAX SUPP ORDER 30ML=2,400MG, # 300 mL, 5 Refills, Acute, [facility], 162.56, cm, 02/24/20 9:30:00 EDT, Height Start Date: 10/30/20 Status: Ordered MILLITRIUM TABLET See Instructions, 30, 11, 11, 06/20/08 13:07:29, TAKE 1 TABLET BY MOUTH DAILY (VITAMIN), [facility] [address] [place] [address], Constant Indicator, MILLITRIUM TABLET Start Date: 06/20/08 [...] tablet, 0 Refills, Maintenance, 10/03/23 8:50:00 EST, [facility], Partial fill upon patient request if the prescription... Start Date: 10/03/23 Status: Ordered Polysporin 500 u-52659 u/gm ointment See Instructions, APPLY A THIN LAYER TOPICALLY TWICE DAILY NEEDED TO RED, IRRITATED SKIN X 7 DAYS / SEE ANCILLARY ORDERS (BACITRACIN-POLYMYXIN OINTMENT), # 28.3 Gm, 5 Refills, Maintenance, 04/18/23 8:59:00 EDT, [facility], 7, APPLY A THIN LAYE... Start Date: 04/18/23 Status: Ordered pravastatin 40 mg oral tablet 1 tablet, By Mouth, Daily, IN PM FOR HYPERLIPIDEMIA., # 30 tablet, 5 Refills, Maintenance, 248:50:00 EST, [facility], 162.56, cm, 09/19/23 10:28:00 EST, Height Start Date: 10/02/23 Status: Ordered Profola oral tablet 1 tablet, By Mouth, Daily, # 30 tablet, 11 Refills, Maintenance, 05/19/23 10:41:00 EDT, [facility], Partial fill upon patient request if [...] tablet, 11 Refills, Maintenance, 10/26/23 8:49:00 EST, [facility], 162.56, cm, 10/03/23 9:00:00 EST, Height Start Date: 10/26/23 Status: Ordered SUDOGEST 30 MG TABLETS SUDOGEST 30 MG TABLETS, See Instructions, # 30 each, Refills 11, Tot. Refills 11, Maintenance, TAKE30 MG Q6H PRN PER DR CRANE FAX [phone], 02/01/19 9:46:36 EDT, [facility] Start Date: 02/01/19 Status: Ordered Thera oral tablet 1 tablet, By Mouth, Daily in AM, VITAMIN., # 30 tablet, 5 Refills, Maintenance, 10/25/23 10:03:00 EST, [facility], 30, TAKE 1 TABLET BY [...] mL, 1 Refills, Maintenance, 12/01/20 8:15:00 EST, [place], [facility], 1 sprays Topically 2 times a day, 162.56, cm, 02/24/20 9:30:00 EDT, Height Start Date: 12/01/20 Status: Ordered TUSSIN DM KAILYNIN KUSHAL, See Instructions, # 420 mL, Refills 1, Tot. Refills 1, Maintenance, 10 ML PO Q4H PRN FORCOUGH AT BEDTIME PER DR CRANE FAX [phone], 05/22/20 8:48:00 EDT, [facility], 162.56, cm, 02/24/20 [...] 1, 2 Confirmed Active Conjunctivitis Confirmed Active Gynecomastia Confirmed 4/8/10 Active Status post-operative repair of closed fracture of left hip Confirmed Active Left hip hemiarthoplasty 02/26/2023 Confirmed Active Hypercholesterolemia Confirmed Active Hypertension Confirmed Active Microcephaly Confirmed Active Periodontal disease Confirmed Active Colon polyp 3, 4 Confirmed Active Pressure injury of skin Confirmed Active Seizure disorder Confirmed Active Vitamin D deficiency Confirmed Active 40599; repeat 2020 2colo 2005 nl, repeat 2015 3Colonoscopy 2016 positive polyp, repeat 2020. 4colo 2015 Social History Social History Type Response Smoking Status Never smoker entered on: 02/01/16 Sex Patient Care team information Care Team Personnel Name: Bisi HUSTON, Schuyler Pope Position: [facility] Physician - Primary Care Member Role: PCP Address: Address: [address] [facility] [place] [address]- Care Team Related Persons Name: ELLE ALMEIDA Address: home [address] [place] [address] [place] [address] Name: ZAK SHELL
--- OUTSIDE RECORDS SUMMARY | 2024-04-02 09:38 | XMS_ITS | Continuity of Care Document ---
Author Organization [facility] Salvatore Todd lt Address [address] [place] [address]- Care Team Providers Care Expediter Name Role Phone Schuyler Crane MD Primary Care Physician [phone] [facility] Date[facility] 05[facility]23 - 06/04/23 [facility] Adult [address] [place] [address]- Allergies, Adverse Reactions, Alerts Substance Reaction Severity [...] 08/25/04 G cristy 1Result Comment: Td - [facility]# [id number] 2Result Comment: PCV23 - [facility]# [id number] 3Result Comment: [facility]# [id number] 4Result Comment: [10/28/2016] pharmacy 5Admin Note: given [...] 10/14/22 8:03:00 EST, Route to Pharmacy Electronically, [facility], 162.56, cm, 07/04/22 8:33:00 EDT, Height Start Date: 10/14/22 Status: Ordered All Day Allergy 10 mg oral tablet See Instructions, TAKE 1 TABLET (10 MG) BY MOUTH DAILY IN THE AM FOR SEASONAL ALLERGIES FROM DECEMBER THROUGH JUNE (START 12/24 / END 07/25) SEE ANCILLARY ORDERS, # 30 tablet, 2 Refills, Maintenance, 04/13/23 14:33:00 EDT, [facility], 162.56, cm, 0... Start Date: 04/13/23 Status: Ordered amLODIPine 10 mg oral tablet 1 tablet, By Mouth, Daily in AM, FOR HYPERTENSION., # 30 tablet, 5 Refills, Maintenance, 04/19/23 23:11:00 EDT, [facility], 162.56, cm, 04/10/23 7:35:00 EDT, Height Start Date: 04/19/23 Status: Ordered ANTACID 500 MG CHEWABLE TAB ANTACID 500 MG CHEWABLE TAB, See Instructions, # 90 each, Refills 3, Tot. Refills 3, Maintenance, TAKE 1 TABLET PO TID FOR OSTEOPOROSIS. MAY CRUSH TABLET PER DR ROSA MARIA CRUZ [phone], 07/20/18 12:11:49EDT, Compound Start Date: 07/20/18 Status: Ordered benzonatate 100 mg oral capsule 1 capsule, By Mouth, 3 times a day, PRN NEEDED FOR COUGH / IF NO IMPROVEMENT IN 3 DAYS NOTIFY MD/ IC, JAGRUTI, # 21 capsule, 0 Refills, Maintenance, 02/17/23 8:57:00 EDT, [facility], 162.56, cm, 07/04/22 8:33:00 EDT, Height Start Date: 02/17/23 Status: Ordered bisacodyl 10 mg rectal suppository See Instructions, INSERT 1 SUPP (10MG) INTO RECTUM NEEDED IF MILK OF MAGNESIA INEFFECTIVE AFTER 8 HRS/BISAC- EVAC EQUIVALENT/ IF SUPPOSITORY INEFFECTIVE AFTER 4 HRS CALL MD, # 7 supp, 11 Refills, Acute, [facility], 162.56, cm, 02/25/21 9:29:00... Start Date: 04/15/21 Status: Ordered Blood Pressure Monitor See Instructions, 1, 0, 0, 06/11/07 11:11:37, PRN, HTN, ADS OPPTHS, [facility] [place] [address] Start Date: 06/11/07 Status: Ordered calcium carbonate 500 mg (200 mg elemental calcium) oral tablet, chewable 1, tablet, By Mouth, 3 times a day, CRUSH. IC: CALCIUM CARBONATE, # 90 tablet, Refills 5, Maintenance, 02/17/23 8:57:00 EDT, Route to Pharmacy Electronically, [facility], 162.56, cm, 07/04/22 8:33:00 EDT, Height Start Date: 02/17/23 Status: Ordered carbamide peroxide 6.5% otic solution See Instructions, INSTILL 4 DROPS INTO EACH EAR TWICE DAILY FOR 5 DAYS EACH MONTH / IC: CARBAMIDE PEROXIDE (EAR DROPS 6.5%), # 15 mL, 11 Refills, Maintenance, 08/21/22 7:49:00 EST, [facility], 30, INSTILL 4 DROPS INTO EACH [...] capsule, 5 Refills, Maintenance, 10/20/22 6:09:00 EST, [facility], 162.56, cm, 07/04/22 8:33:00 EDT, Height Start Date: 10/20/22 Status: Ordered EARWAX TREATMENT DROPS 6.5% EARWAX TREATMENT DROPS 6.5%, See Instructions, # 1 each, Refills 11, Tot. Refills 11, Maintenance, USE DIRECTED FAX [phone], 12/02/20 14:40:00 EST, [facility], 162.56, cm, 02/24/20 9:30:00 EDT, Height Start Date: 12/02/20 Status: Ordered fluoride 1.1% topical gel See Instructions, USE 1/4 INCH OF GEL TO BRUSH TEETH DAILY IN THE EVENING / BRUSH THOROUGHLY ALONG GUMLINE IC: DENTAGEL, # 56 Gm, 11 Refills, [facility], 30, USE 1/4 INCH OF GEL TO BRUSH TEETH DAILY IN THE EVENING / BRUSH THOROUGHLY ALONG GUMLINE... Start Date: 01/28/22 Status: Ordered Carolyn-jag 8.6 mg oral tablet 1 tablet, By Mouth, Daily in PM, FOR CONSTIPATION / SEE MILK OF MAG ORDERS / IC: SENNA 8.6 MG, # 15tablet, 6 Refills, Maintenance, 10/14/22 8:03:00 EST, [facility], 162.56, cm, 07/04/22 8:33:00EDT, Height Start Date: 10/14/22 Status: Ordered Hospital Bed See Instructions, # 1 each, Refills 0, Tot. Refills 0, Maintenance, [facility] Bed DX: Left hip fracture, seizure dis, impulse control disorder, atypical autism. Duration ongoing NPI#[id number] Height: 5'6 Weight: 137lbs, 03/22/23 13:55:... Start Date: 03/22/23 Status: Ordered Milk of Magnesia 8% oral suspension See Instructions, TAKE 2 TABLESPOONFULS (30 ML) BY MOUTH AT BEDTIME NEEDED FOR CONSTIPATION ON DAY 3 OF NO BM / SEE BISCOLAX SUPP ORDER 30ML=2,400MG, # 300 mL, 5 Refills, Acute, [facility], 162.56, cm, 02/24/20 9:30:00 EDT, Height Start Date: 10/30/20 Status: Ordered MILLITRIUM TABLET See Instructions, 30, 11, 11, 06/20/08 13:07:29, TAKE 1 TABLET BY MOUTH DAILY (VITAMIN), [address] [address], Constant Indicator, MILLITRIUM TABLET Start Date: 06/20/08 Status: Ordered OCEAN SALINE NASAL MIST OCEAN SALINE NASAL MIST, See Instructions, # 1 each, Refills 2, Tot. Refills 2, Maintenance, use bid prn nasal dryness, 11/06/18 9:57:36 EST, Compound Start Date: 11/06/18 Status: Ordered Polysporin 500 u-05651 u/gm ointment See Instructions, APPLY A THIN LAYER TOPICALLY TWICE DAILY NEEDED TO RED, IRRITATED SKIN X 7 DAYS / SEE ANCILLARY ORDERS (BACITRACIN-POLYMYXIN OINTMENT), # 28.3 Gm, 5 Refills, Maintenance, 04/18/23 8:59:00 EDT, [facility], 7, APPLY A THIN LAYE... Start Date: 04/18/23 Status: Ordered pravastatin 40 mg oral tablet See Instructions, TAKE 1 TABLET (40 MG) BY MOUTH DAILY IN PM FOR HYPERLIPIDEMIA, # 30 tablet, 5 Refills, Maintenance, 02/17/23 13:00:00 EDT, [facility], 162.56, cm, 07/04/22 8:33:00 EDT, Height Start Date: 02/17/23 Status: Ordered Profola oral tablet 1 tablet, By Mouth, Daily, # 30 tablet, 11 Refills, Maintenance, 05/19/23 10:41:00 EDT, [facility], Partial fill upon patient request if [...] (SUPHEDRIN EQUIVALENT), # 30 tablet, 11 Refills, [facility], 162.56, cm, 03/24/22 10:31:00 EDT, Height Start Date: 04/22/22 Status: Ordered SUDOGEST 30 MG TABLETS SUDOGEST 30 MG TABLETS, See Instructions, # 30 each, Refills 11, Tot. Refills 11, Maintenance, TAKE30 MG Q6H PRN PER DR CRANE FAX [phone], 02/01/19 9:46:36 EDT, Compound Start Date: 02/01/19 [...] mL, 1 Refills, Maintenance, 12/01/20 8:15:00 EST, [place], 1 sprays Topically 2 times a day, 162.56, cm, 02/24/20 9:30:00 EDT, Height Start Date: 12/01/20 Status: Ordered TUSSIN DM TUSSIN DM, See Instructions, # 420 mL, Refills 1, Tot. Refills 1, Maintenance, 10 ML PO Q4H PRN FORCOUGH AT BEDTIME PER DR CRANE FAX [phone], 05/22/20 8:48:00 EDT, [facility], 162.56, cm, 02/24/20 [...] Confirmed Active Vitamin D deficiency Confirmed Active 52432; repeat 2020 2colo 2005 nl, repeat 2015 3Colonoscopy 2016 positive polyp, repeat 2020. 4colo 2015 Social History Social History Type Response Smoking Status Never smoker entered on: 02/01/16 Sex Patient Care team information Care Team Personnel Name: Schuyler Crane MD Position: S Physician - Primary Care Member Role: PCP Address: Address: [address] [place] [address]- Care Team Related Persons Name: ELLE ALMEIDA Address: [address] [place] [address] Name: ZAK SHELL
--- OUTSIDE RECORDS SUMMARY | 2024-04-02 09:38 | XMS_ITS | Continuity of Care Document ---
Author Organization [facility] Salvatore Todd lt Address [address] [place] [address]- Care Team Providers Care Maintenance Department Manager Name Role Phone Schuyler Crane MD Primary Care Physician [facility]23 - 05/19/23 [facility] Adult [address] [place] [address]- Allergies, Adverse Reactions, Alerts Substance Reaction Severity [...] 1Result Comment: Td - [facility]# [id number] 2Result Comment: PCV23 - [facility]# [id number] 3Result Comment: [facility]# [id number] 4Result Comment: [10/28/2016] pharmacy 5Admin Note: given [...] 10/14/22 8:03:00 EST, Route to Pharmacy Electronically, [facility], 162.56, cm, 07/04/22 8:33:00 EDT, Height Start Date: 10/14/22 Status: Ordered All Day Allergy 10 mg oral tablet See Instructions, TAKE 1 TABLET (10 MG) BY MOUTH DAILY IN THE AM FOR SEASONAL ALLERGIES FROM DECEMBER THROUGH JUNE (START 12/24 / END 07/25) SEE ANCILLARY ORDERS, # 30 tablet, 2 Refills, Maintenance, 04/13/23 14:33:00 EDT, [facility], 162.56, cm, 0... Start Date: 04/13/23 Status: Ordered amLODIPine 10 mg oral tablet 1 tablet, By Mouth, Daily in AM, FOR HYPERTENSION., # 30 tablet, 5 Refills, Maintenance, 04/19/23 23:11:00 EDT, [facility], 162.56, cm, 04/10/23 7:35:00 EDT, Height Start Date: 04/19/23 Status: Ordered ANTACID 500 MG CHEWABLE TAB ANTACID 500 MG CHEWABLE TAB, See Instructions, # 90 each, Refills 3, Tot. Refills 3, Maintenance, TAKE 1 TABLET PO TID FOR OSTEOPOROSIS. MAY CRUSH TABLET PER DR ROSA MARIA CRUZ [phone], 07/20/18 12:11:49EDT, Compound Start Date: 07/20/18 Status: Ordered benzonatate 100 mg oral capsule 1 capsule, By Mouth, 3 times a day, PRN NEEDED FOR COUGH / IF NO IMPROVEMENT IN 3 DAYS NOTIFY MD/ IC, JAGRUTI, # 21 capsule, 0 Refills, Maintenance, 02/17/23 8:57:00 EDT, [facility], 162.56, cm, 07/04/22 8:33:00 EDT, Height Start Date: 02/17/23 Status: Ordered bisacodyl 10 mg rectal suppository See Instructions, INSERT 1 SUPP (10MG) INTO RECTUM NEEDED IF MILK OF MAGNESIA INEFFECTIVE AFTER 8 HRS/BISAC- EVAC EQUIVALENT/ IF SUPPOSITORY INEFFECTIVE AFTER 4 HRS CALL MD, # 7 supp, 11 Refills, Acute, [facility], 162.56, cm, 02/25/21 9:29:00... Start Date: 04/15/21 Status: Ordered Blood Pressure Monitor See Instructions, 1, 0, 0, 06/11/07 11:11:37, PRN, HTN, ADS OPPTHS, [facility] [place] [address] Start Date: 06/11/07 Status: Ordered calcium carbonate 500 mg (200 mg elemental calcium) oral tablet, chewable 1, tablet, By Mouth, 3 times a day, CRUSH. IC: CALCIUM CARBONATE, # 90 tablet, Refills 5, Maintenance, 02/17/23 8:57:00 EDT, Route to Pharmacy Electronically, [facility], 162.56, cm, 07/04/22 8:33:00 EDT, Height Start Date: 02/17/23 Status: Ordered carbamide peroxide 6.5% otic solution See Instructions, INSTILL 4 DROPS INTO EACH EAR TWICE DAILY FOR 5 DAYS EACH MONTH / IC: CARBAMIDE PEROXIDE (EAR DROPS 6.5%), # 15 mL, 11 Refills, Maintenance, 08/21/22 7:49:00 EST, [facility], 30, INSTILL 4 DROPS INTO EACH [...] capsule, 5 Refills, Maintenance, 10/20/22 6:09:00 EST, [facility], 162.56, cm, 07/04/22 8:33:00 EDT, Height Start Date: 10/20/22 Status: Ordered EARWAX TREATMENT DROPS 6.5% EARWAX TREATMENT DROPS 6.5%, See Instructions, # 1 each, Refills 11, Tot. Refills 11, Maintenance, USE DIRECTED FAX [phone], 12/02/20 14:40:00 EST, [facility], 162.56, cm, 02/24/20 9:30:00 EDT, Height Start Date: 12/02/20 Status: Ordered fluoride 1.1% topical gel See Instructions, USE 1/4 INCH OF GEL TO BRUSH TEETH DAILY IN THE EVENING / BRUSH THOROUGHLY ALONG GUMLINE IC: DENTAGEL, # 56 Gm, 11 Refills, [facility], 30, USE 1/4 INCH OF GEL TO BRUSH TEETH DAILY IN THE EVENING / BRUSH THOROUGHLY ALONG GUMLINE... Start Date: 01/28/22 Status: Ordered Carolyn-jag 8.6 mg oral tablet 1 tablet, By Mouth, Daily in PM, FOR CONSTIPATION / SEE MILK OF MAG ORDERS / IC: SENNA 8.6 MG, # 15tablet, 6 Refills, Maintenance, 10/14/22 8:03:00 EST, [facility], 162.56, cm, 07/04/22 8:33:00EDT, Height Start Date: 10/14/22 Status: Ordered Hospital Bed See Instructions, # 1 each, Refills 0, Tot. Refills 0, Maintenance, [facility] DX: Left hip fracture, seizure dis, impulse control disorder, atypical autism. Duration ongoing NPI#[id number] Height: 5'6 Weight: 137lbs, 03/22/23 13:55:... Start Date: 03/22/23 Status: Ordered Milk of Magnesia 8% oral suspension See Instructions, TAKE 2 TABLESPOONFULS (30 ML) BY MOUTH AT BEDTIME NEEDED FOR CONSTIPATION ON DAY 3 OF NO BM / SEE BISCOLAX SUPP ORDER 30ML=2,400MG, # 300 mL, 5 Refills, Acute, [facility], 162.56, cm, 02/24/20 9:30:00 EDT, Height Start Date: 10/30/20 Status: Ordered MILLITRIUM TABLET See Instructions, 30, 11, 11, 06/20/08 13:07:29, TAKE 1 TABLET BY MOUTH DAILY (VITAMIN), [address] [address], Constant Indicator, MILLITRIUM TABLET Start Date: 06/20/08 Status: Ordered OCEAN SALINE NASAL MIST OCEAN SALINE NASAL MIST, See Instructions, # 1 each, Refills 2, Tot. Refills 2, Maintenance, use bid prn nasal dryness, 11/06/18 9:57:36 EST, Compound Start Date: 11/06/18 Status: Ordered Polysporin 500 u-87775 u/gm ointment See Instructions, APPLY A THIN LAYER TOPICALLY TWICE DAILY NEEDED TO RED, IRRITATED SKIN X 7 DAYS / SEE ANCILLARY ORDERS (BACITRACIN-POLYMYXIN OINTMENT), # 28.3 Gm, 5 Refills, Maintenance, 04/18/23 8:59:00 EDT, [facility], 7, APPLY A THIN LAYE... Start Date: 04/18/23 Status: Ordered pravastatin 40 mg oral tablet See Instructions, TAKE 1 TABLET (40 MG) BY MOUTH DAILY IN PM FOR HYPERLIPIDEMIA, # 30 tablet, 5 Refills, Maintenance, 02/17/23 13:00:00 EDT, [facility], 162.56, cm, 07/04/22 8:33:00 EDT, Height Start Date: 02/17/23 Status: Ordered Profola oral tablet 1 tablet, By Mouth, Daily, # 30 tablet, 11 Refills, Maintenance, 05/19/23 10:41:00 EDT, [facility], Partial fill upon patient request [...] (SUPHEDRIN EQUIVALENT), # 30 tablet, 11 Refills, [facility], 162.56, cm, 03/24/22 10:31:00 EDT, Height Start Date: 04/22/22 Status: Ordered SUDOGEST 30 MG TABLETS SUDOGEST 30 MG TABLETS, See Instructions, # 30 each, Refills 11, Tot. Refills 11, Maintenance, TAKE30 MG Q6H PRN PER DR CRANE FAX [phone], 02/01/19 9:46:36 EDT, Compound Start Date: 02/01/19 [...] mL, 1 Refills, Maintenance, 12/01/20 8:15:00 EST, [place], 1 sprays Topically 2 times a day, 162.56, cm, 02/24/20 9:30:00 EDT, Height Start Date: 12/01/20 Status: Ordered TUSSIN DM TUSSIN DM, See Instructions, # 420 mL, Refills 1, Tot. Refills 1, Maintenance, 10 ML PO Q4H PRN FORCOUGH AT BEDTIME PER DR CRANE FAX [phone], 05/22/20 8:48:00 EDT, [facility], 162.56, cm, 02/24/20 [...] closed fracture of left hip Confirmed Active Hypercholesterolemia Confirmed Active Hypertension Confirmed Active Microcephaly Confirmed Active Periodontal disease Confirmed Active Colon polyp 3, 4 Confirmed Active Pressure injury of skin Confirmed Active Seizure disorder Confirmed Active Vitamin D deficiency Confirmed Active 90421; repeat 2020 2colo 2006 nl, repeat 2016 3Colonoscopy 2016 positive polyp, repeat 2020. 4colo 2015 Social History Social History Type Response Smoking Status Never smoker entered on: 02/01/16 Sex Patient Care team information Care Team Personnel Name: Schuyler Crane MD Position: S Physician - Primary Care Member Role: PCP Address: Address: [address] [place] [address]- Care Team Related Persons Name: ELLE ALMEIDA Address: home [address] [place] [address] [place] [address] Name: ZAK SHELL
--- OUTSIDE RECORDS SUMMARY | 2024-04-02 09:38 | XMS_ITS | Continuity of Care Document ---
Author Organization [facility] Salvatore Todd lt Address [address] [place] [address]- Care Team Providers Care Angiography Nurse Name Role Phone Schuyler Crane MD Primary Care Physician [phone] [facility]): 12[facility]21 - 01/05/22 [facility] Adult [address] [place] [address]- Attending Physician: Admtr, Ar8 Allergies, Adverse Reactions, Alerts Substance Reaction Severity Status amoxicillin Active cephalosporins Active Klonopin Wafer Active penicillins Active benzodiazepines Active Ativan Active Immunizations Given [...] Adult (oldterm) 08/25/04 G cristy 1Result Comment: [10/28/2016] pharmacy 2Admin Note: given [...] Replace Required Details, Route to Pharmacy Electronically, [facility], 162.56, cm, 02/25/21 9:29:00 EDT, He... Start Date: 08/31/21 Status: Ordered amLODIPine 10 mg oral tablet See Instructions, TAKE 1 TABLET (10 MG) BY MOUTH DAILY IN AM FOR HYPERTENSION, # 30 tablet, 5 Refills, [facility], 162.56, cm, 02/25/21 9:29:00 EDT, Height Start Date: 09/30/21 Status: Ordered ANTACID 500 MG CHEWABLE TAB ANTACID 500 MG CHEWABLE TAB, See Instructions, # 90 each, Refills 3, Tot. Refills 3, Maintenance, TAKE 1 TABLET PO TID FOR OSTEOPOROSIS. MAY CRUSH TABLET PER DR ROSA MARIA CRUZ [phone], 07/20/18 12:11:49EDT, Compound Start Date: 07/20/18 Status: Ordered bisacodyl 10 mg rectal suppository See Instructions, INSERT 1 SUPP (10MG) INTO RECTUM NEEDED IF MILK OF MAGNESIA INEFFECTIVE AFTER 8 HRS/BISAC- EVAC EQUIVALENT/ IF SUPPOSITORY INEFFECTIVE AFTER 4 HRS CALL , # 7 supp, 11 Refills, Acute, [facility], 162.56, cm, 02/25/21 9:29:00... Start Date: 04/15/21 Status: Ordered Blood Pressure Monitor See Instructions, 1, 0, 0, 06/11/07 11:11:37, PRN, HTN, ADS OPPTHS, [place] [address] [place] [address] Start Date: 06/11/07 Status: Ordered calcium carbonate 500 mg (200 mg elemental calcium) oral tablet, chewable 500 mg, 1, tablet, By Mouth, 3 times a day, PER DR CRANE, # 90 tablet, Refills 5, Tot. Refills 5, Maintenance, 09/29/21 14:35:00 EST, Route to Pharmacy Electronically, [facility], 162.56, cm, 02/25/21 9:29:00 EDT, Height Start Date: 09/29/21 Stop Date: 03/28/22 Status: Ordered cetirizine 10 mg oral tablet See Instructions, TAKE 1 TABLET (10 MG) BY MOUTH DAILY IN THE AM FOR SEASONAL ALLERGIES FROM DECEMBER THROUGH JUNE (START 12/24) SEE ANCILLARY ORDERS, # 30 tablet, 5 Refills, Maintenance, [facility], 162.56, cm, 02/25/21 9:29:00 EDT, He... Start Date: 02/25/21 Status: Ordered cetirizine 10 mg oral tablet 1 tablet, By Mouth, Daily in AM, FOR SEASONAL ALLERGIES FROM DECEMBER THROUGH JUNE (START 12/24) SEE ANCILLARY ORDERS., # 30 tablet, 5 Refills, Maintenance, 02/25/21 13:04:00 EDT, [facility], 162.56, cm, 02/25/21 9:29:00 EDT, Height [...] Gm, 11 Refills, Maintenance, 08/07/20 11:11:00 EST, [facility], 30, USE 1/4 INCH OF GEL TO BRUSH TEETH DAILY IN THE EVENING / BRUSH T... Start Date: 08/07/20 Status: Ordered docusate sodium 100 mg oral capsule See Instructions, TAKE 1 CAPSULE (100 MG) BY MOUTH TWICE DAILY FOR CONSTIPATION (DOCUSATE SODIUM 100 MG), # 60 capsule, 5 Refills, [facility], 162.56, cm, 02/25/21 9:29:00 EDT, Height Start Date: 07/23/21 Status: Ordered EARWAX TREATMENT DROPS 6.5% EARWAX TREATMENT DROPS 6.5%, See Instructions, # 1 each, Refills 11, Tot. Refills 11, Maintenance, USE DIRECTED FAX [phone], 12/02/20 14:40:00 EST, [facility], 162.56, cm, 02/24/20 9:30:00 EDT, Height Start Date: 12/02/20 Status: Ordered GNP MILK OF MAGNESIA 1200 M 1200 KAYLA GNP MILK OF MAGNESIA 1200 M 1200 KAYLA, See Instructions, # 300 mL, 5 Refills, TAKE 2 TABLESPOONFULS (30 ML) BY MOUTH AT BEDTIME NEEDED FOR CONSTIPATION ON DAY 3 OF NO BM / SEE BISCOLAX SUPP ORDER 30ML=2,400MG, 162.56, cm, 02/25/21 9:29:00 EDT, Height Start Date: 11/09/21 Status: Ordered hydrocortisone 1% topical solution 1 application, Topically, 2 times a day, apply in a thin film to the affected skin and rub in gently and completely (left scalp/yarsanism). May apply BID for 4-6 weeks or until rash resolves., # 59 mL, 0 Refills, Acute 01/17/22 21:00:00 EDT, 12/06/21 13:... Start Date: 12/06/21 Stop Date: 01/17/22 Status: Ordered Milk of Magnesia 8% oral suspension See Instructions, TAKE 2 TABLESPOONFULS (30 ML) BY MOUTH AT BEDTIME NEEDED FOR CONSTIPATION ON DAY 3 OF NO BM / SEE BISCOLAX SUPP ORDER 30ML=2,400MG, # 300 mL, 5 Refills, Acute, [facility], 162.56, cm, 02/24/20 9:30:00 EDT, Height Start Date: 10/30/20 Status: Ordered MILLITRIUM TABLET See Instructions, 30, 11, 11, 06/20/08 13:07:29, TAKE 1 TABLET BY MOUTH DAILY (VITAMIN), [facility] [address] [place] [address], Constant Indicator, MILLITRIUM TABLET Start Date: 06/20/08 [...] bid prn nasal dryness PER [employer]WIT [employer] FAX [phone], 11/02/18 14:15:30 EST, Compound Start Date: 11/02/18 Status: Ordered Ocuflox 0.3% solution 2 drops, Eyes, Both, 4 times a day, # 10 mL, 0 Refills, Maintenance, 01/10/17 14:21:09, Ophth Solution, 2 drops Eyes, Both 4 times a day Start Date: 01/10/17 Status: Ordered Polysporin 500 u-26168 u/gm ointment See Instructions, APPLY A THIN LAYER TOPICALLY TWICE DAILY NEEDED TO RED, IRRITATED SKIN X 7 DAYS / SEE ANCILLARY ORDERS (BACITRACIN-POLYMYXIN OINTMENT), # 28.3 Gm, 5 Refills, Maintenance, 04/14/21 14:39:00 EDT, [facility], 7, APPLY A THIN LAY... Start Date: 04/14/21 Status: Ordered pravastatin 40 mg oral tablet 1 tablet, By Mouth, Daily, IN PM FOR HYPERLIPIDEMIA., # 30 tablet, 5 Refills, Maintenance, 09/03/2112:22:00 EST, [facility], 162.56, cm, 02/25/21 9:29:00 EDT, Height Start Date: 09/03/21 Status: Ordered Prevident 1.1% topical gel See [...] MG Q6H PRN PER DR CRANE FAX [phone], 02/01/19 9:46:36 EDT, Compound Start Date: 02/01/19 Status: Ordered Suphedrin 30 mg oral tablet See Instructions, TAKE 1 TAB (30 MG) BY MOUTH EVERY 6 HRS NEEDED FOR NASAL CONGESTION/ SEE ANCILLARY ORDERS (SUDOGEST EQUIVALENT), # 30 tablet, 11 Refills, Acute, [facility], 162.56, cm, 02/24/20 9:30:00 EDT, Height Start Date: 05/22/20 Status: Ordered THERA CAPLETS THERA CAPLETS, See Instructions, # 30 each, Refills 5, Tot. Refills 5, Maintenance, TAKE ONE CAPLETBY MOUTH QD PER DR CRANE FAX [phone], 10/08/20 11:48:00 EST, [facility], 162.56, cm, 02/24/20 9:30:00 EDT, Height Start Date: 10/08/20 Status: Ordered Thera oral tablet 1 tablet, By Mouth, Daily in AM, VITAMIN., # 30 tablet, 5 Refills, Maintenance, 08/27/21 13:53:00 EST, [facility], 30, 1 tablet By Mouth Daily in AM,Instr:VITAMIN., 162.56, cm, 02/25/21 9:29:00 EDT, Height Start Date: 08/27/21 Status: Ordered TINACTIN 1% AEROSOL POWDER 1 Aerosol TINACTIN 1% AEROSOL POWDER 1 Aerosol, 2, sprays, Topically, 2 times a day, PRN, # 133 Gm, 1 Refills, 162.56, cm, 02/25/21 9:29:00 EDT, Height Start Date: 11/05/21 Status: Ordered Tinactin 1% spray 1 sprays, Topically, 2 times a day, # 120 mL, 1 Refills, Maintenance, 12/01/20 8:15:00 EST, [place], [facility], 1 sprays Topically 2 times a day, 162.56, cm, 02/24/20 9:30:00 EDT, Height Start Date: 12/01/20 Status: Ordered KAILYNIN KUSHAL [place]IN[place] KUSHAL, See Instructions, # 420 mL, Refills 1, Tot. Refills 1, Maintenance, 10 ML PO Q4H PRN FORCOUGH AT BEDTIME PER DR CRANE FAX [phone], 05/22/20 8:48:00 EDT, [facility], 162.56, cm, 02/24/20 [...] Seizure disorder(Confirmed) Active Vitamin D deficiency(Confirmed) Active 39577; repeat 2020 2colo 2006 nl, repeat 2015 3Colonoscopy 2016 positive polyp, repeat 2020. 4colo 2015 Procedures Procedure Date Related Diagnosis Body Site Status Colonoscopy 1 12/30/15 Completed 1repeat 2020 Vital Signs Most recent to oldest [Reference Range]: 1 Dry Weight 53 kg (02/04/15 8:06 AM) Social History Social History Type Response Smoking Status Never smoker entered on: 02/01/16 Sex
--- OUTSIDE RECORDS SUMMARY | 2024-04-02 09:38 | XMS_ITS | Continuity of Care Document ---
Author Organization [facility] Todd lt Address [address] [place] [address]- Care Team Providers Care Health Actuary Name Role Phone Schuyler Crane MD Primary Care Physician [phone] [facility] - 04/07/21 [facility] [address] [place] [address]- Allergies, Adverse Reactions, Alerts Substance Reaction Severity [...] 04/01/21 15:49:00 EDT, Route to Pharmacy Electronically, [facility], 162.56, cm, 02/25/21 9:29:00 EDT, Height Start Date: 04/01/21 Status: Ordered ANTACID 500 MG CHEWABLE TAB ANTACID 500 MG CHEWABLE TAB, See Instructions, # 90 each, Refills 3, Tot. Refills 3, Maintenance, TAKE 1 TABLET PO TID FOR OSTEOPOROSIS. MAY CRUSH TABLET PER DR CRANE FX [phone], 07/20/18 12:11:49EDT, Compound Start Date: 07/20/18 Status: Ordered Bisco-Lax 10 mg rectal suppository See Instructions, INSERT 1 SUPP (10MG) INTO RECTUM NEEDED IF MILK OF MAGNESIA INEFFECTIVE AFTER 8 HRS/BISAC- EVAC EQUIVALENT/ IF SUPPOSITORY INEFFECTIVE AF, # 7 supp, 11 Refills, Acute, [facility], 162.56, cm, 02/24/20 9:30:00 EDT, Height Start Date: 03/30/20 Status: Ordered Blood Pressure Monitor See Instructions, 1, 0, 0, 06/11/07 11:11:37, PRN, HTN, ADS OPPTHS, [id number] [place] [address] Start Date: 06/11/07 Status: Ordered calcium carbonate 500 mg (200 mg elemental calcium) oral tablet, chewable 500 mg, 1, tablet, By Mouth, 3 times a day, PER DR CRANE, # 90 tablet, Refills 5, Tot. Refills 5, Maintenance, 04/02/21 14:35:00 EDT, Route to Pharmacy Electronically, [facility], 162.56, cm, 02/25/21 9:29:00 EDT, Height Start Date: 04/02/21 Stop Date: 09/29/21 Status: Ordered cetirizine 10 mg oral tablet See Instructions, TAKE 1 TABLET (10 MG) BY MOUTH DAILY IN THE AM FOR SEASONAL ALLERGIES FROM DECEMBER THROUGH JUNE (START 12/24) SEE ANCILLARY ORDERS, # 30 tablet, 5 Refills, Maintenance, [facility], 162.56, cm, 02/25/21 9:29:00 EDT, He... Start Date: 02/25/21 Status: Ordered cetirizine 10 mg oral tablet 1 tablet, By Mouth, Daily in AM, FOR SEASONAL ALLERGIES FROM DECEMBER THROUGH JUNE (START 12/24) SEE ANCILLARY ORDERS., # 30 tablet, 5 Refills, Maintenance, 02/25/21 13:04:00 EDT, [facility], 162.56, cm, 02/25/21 9:29:00 EDT, Height [...] Gm, 11 Refills, Maintenance, 08/07/20 11:11:00 EST, [facility], 30, USE 1/4 INCH OF GEL TO BRUSH TEETH DAILY IN THE EVENING / BRUSH T... Start Date: 08/07/20 Status: Ordered docusate sodium 100 mg oral capsule 1 capsule, By Mouth, 2 times a day, # 60 capsule, 5 Refills, Maintenance, 01/28/21 15:23:00 EDT, [facility], 162.56, cm, 02/24/20 9:30:00 EDT, Height Start Date: 01/28/21 Status: Ordered EARWAX TREATMENT DROPS 6.5% EARWAX TREATMENT DROPS 6.5%, See Instructions, # 1 each, Refills 11, Tot. Refills 11, Maintenance, USE DIRECTED FAX [phone], 12/02/20 14:40:00 EST, [facility], 162.56, cm, 02/24/20 9:30:00 EDT, Height Start Date: 12/02/20 Status: Ordered Milk of Magnesia 8% oral suspension See Instructions, TAKE 2 TABLESPOONFULS (30 ML) BY MOUTH AT BEDTIME NEEDED FOR CONSTIPATION ON DAY 3 OF NO BM / SEE BISCOLAX SUPP ORDER 30ML=2,400MG, # 300 mL, 5 Refills, Acute, [facility], 162.56, cm, 02/24/20 9:30:00 EDT, Height Start Date: 10/30/20 Status: Ordered MILLITRIUM TABLET See Instructions, 30, 11, 11, 06/20/08 13:07:29, TAKE 1 TABLET BY MOUTH DAILY (VITAMIN), [address] [address], Constant Indicator, MILLITRIUM TABLET Start Date: 06/20/08 [...] prn nasal dryness PER DAWIT STOREY RN INTERNATIONAL-C FAX [phone], 11/02/18 14:15:30 EST, Compound Start Date: 11/02/18 Status: Ordered Ocuflox 0.3% solution 2 drops, Eyes, Both, 4 times a day, # 10 mL, 0 Refills, Maintenance, 01/10/17 14:21:09, Ophth Solution, 2 drops Eyes, Both 4 times a day Start Date: 01/10/17 Status: Ordered Polysporin 500 u-80901 u/gm ointment See Instructions, APPLY A THIN LAYER TOPICALLY TWICE DAILY NEEDED TO RED, IRRITATED SKIN X 7 DAYS / SEE ANCILLARY ORDERS (BACITRACIN-POLYMYXIN OINTMENT), # 28.3 Gm, 5 Refills, Acute, [facility], 7, APPLY A THIN LAYER TOPICALLY TWICE DAILY N... Start Date: 03/30/20 Status: Ordered Polysporin 500 u-69599 u/gm ointment See Instructions, APPLY A THIN LAYER TOPICALLY TWICE DAILY NEEDED TO RED, IRRITATED SKIN X 7 DAYS / SEE ANCILLARY ORDERS (BACITRACIN-POLYMYXIN OINTMENT), # 28.3 Gm, 5 Refills, Acute, [facility], 7, APPLY A THIN LAYER TOPICALLY TWICE DAILY N... Start Date: 03/30/20 Status: Ordered pravastatin 40 mg oral tablet 1 tablet, By Mouth, Daily, IN PM FOR HYPERLIPIDEMIA., # 30 tablet, 5 Refills, Maintenance, 03/05/2111:55:00 EDT, [facility], 162.56, cm, 02/25/21 9:29:00 EDT, Height [...] MG Q6H PRN PER DR CRANE FAX [phone], 02/01/19 9:46:36 EDT, Compound Start Date: 02/01/19 Status: Ordered Suphedrin 30 mg oral tablet See Instructions, TAKE 1 TAB (30 MG) BY MOUTH EVERY 6 HRS NEEDED FOR NASAL CONGESTION/ SEE ANCILLARY ORDERS (SUDOGEST EQUIVALENT), # 30 tablet, 11 Refills, Acute, [facility], 162.56, cm, 02/24/20 9:30:00 EDT, Height Start Date: 05/22/20 Status: Ordered THERA CAPLETS THERA CAPLETS, See Instructions, # 30 each, Refills 5, Tot. Refills 5, Maintenance, TAKE ONE CAPLETBY MOUTH QD PER DR CRANE FAX [phone], 10/08/20 11:48:00 EST, [facility], 162.56, cm, 02/24/20 9:30:00 EDT, Height Start Date: 10/08/20 Status: Ordered Thera oral tablet 1 tablet, By Mouth, Daily in AM, VITAMIN., # 30 tablet, 5 Refills, Maintenance, 03/05/21 11:55:00 EDT, [facility], 30, TAKE 1 TABLET BY MOUTH DAILY IN THE AM (VITAMIN), 162.56, cm, 02/25/21 9:29:00 EDT, Height Start Date: 03/05/21 Status: Ordered Tinactin 1% spray 1 sprays, Topically, 2 times a day, # 120 mL, 1 Refills, Maintenance, 12/01/20 8:15:00 EST, [place], [facility], 1 sprays Topically 2 times a day, 162.56, cm, 02/24/20 9:30:00 EDT, Height Start Date: 12/01/20 Status: Ordered TUSSIN DM TUSSIN DM, See Instructions, # 420 mL, Refills 1, Tot. Refills 1, Maintenance, 10 ML PO Q4H PRN FORCOUGH AT BEDTIME PER DR CRANE FAX [phone], 05/22/20 8:48:00 EDT, Compound, 162.56, cm, 02/24/20 9:30:00 EDT, Height Start Date: 05/22/20 Status: Ordered Tylenol 325 mg oral tablet 650 mg, 2, tablet, By Mouth, Every 4 hours, PER DR CRANE, # 168 tablet, Refills 5, Tot. Refills 5, Maintenance, 10/04/19 10:27:00 EST, Route to Pharmacy Electronically, [facility], 162.56, cm, 02/12/19 10:36:00 EDT, Height [...] Active Underweight(Confirmed) Active Vitamin D deficiency(Confirmed) Active 27649; repeat 2020 2colo 2006 nl, repeat 2015 3Colonoscopy 2016 positive polyp, repeat 2020. 4colo 2015 Social History Social History Type Response Smoking Status Never smoker entered on: 02/01/16 Sex
--- OUTSIDE RECORDS SUMMARY | 2024-04-02 09:38 | XMS_ITS | Continuity of Care Document ---
Author Organization [facility] Todd lt Address [address] [place] [address]- Care Team Providers Care Prehemmer Name Role Phone Schuyler Crane MD Primary Care Physician [facility]20 - 11/07/20 [facility] [place] [address] [place] [address]- Allergies, Adverse Reactions, Alerts Substance Reaction Severity Status amoxicillin Active cephalosporins Active penicillins Active benzodiazepines Active Ativan Active Klonopin Wafer Active Immunizations Given and Recorded Vaccine Date Status Refusal Reason influenza virus vaccine, inactivated 07/22/20 Give n influenza virus vaccine, inactivated 08/06/17 Give n [...] TABLET BY MOUTH DAILY IN THE AM FOR SEASONAL ALLERGIES FROM DECEMBER THROUGH JUNE START 12/24/18 / END 07/25/19, # 30 tablet, 5 Refills, Soft Stop, 04/03/20 16:18:00 EDT, [facility], 162.56, cm, 02/24/20 9:30:00 EDT, Height Start Date: 04/03/20 Status: Ordered amLODIPine 10 mg oral tablet 10 mg, 1, tablet, By Mouth, Daily, # 90 tablet, Refills 1, Tot. Refills 1, Soft Stop, 10/08/20 8:13:00 EST, Route to Pharmacy Electronically, [facility], 162.56, cm, 02/24/20 9:30:00 EDT, Height Start Date: 10/08/20 Status: Ordered ANTACID 500 MG CHEWABLE TAB ANTACID 500 MG CHEWABLE TAB, See Instructions, # 90 each, Refills 3, Tot. Refills 3, Maintenance, TAKE 1 TABLET PO TID FOR OSTEOPOROSIS. MAY CRUSH TABLET PER DR ROSA MARIA CRUZ [phone], 07/20/18 12:11:49EDT, Compound Start Date: 07/20/18 Status: Ordered Bisco-Lax 10 mg rectal suppository See Instructions, INSERT 1 SUPP (10MG) INTO RECTUM NEEDED IF MILK OF MAGNESIA INEFFECTIVE AFTER 8 HRS/BISAC- EVAC EQUIVALENT/ IF SUPPOSITORY INEFFECTIVE AF, # 7 supp, 11 Refills, Acute, [facility], 162.56, cm, 02/24/20 9:30:00 EDT, Height Start Date: 03/30/20 Status: Ordered Blood Pressure Monitor See Instructions, 1, 0, 0, 06/11/07 11:11:37, PRN, HTN, ADS OPPTHS, [facility] [id number] [place] [address] Start Date: 06/11/07 Status: Ordered calcium carbonate 500 mg (200 mg elemental calcium) oral tablet, chewable 500 mg, 1, tablet, By Mouth, 3 times a day, PER DR CRANE, # 90 tablet, Refills 11, Tot. Refills 11, Maintenance, 12/09/19 14:35:00 EDT, Route to Pharmacy Electronically, [facility], 162.56, cm, 02/12/19 10:36:00 EDT, Height [...] Gm, 11 Refills, Maintenance, 08/07/20 11:11:00 EST, [facility], 30, USE 1/4 INCH OF GEL TO BRUSH TEETH DAILY IN THE EVENING / BRUSH T... Start Date: 08/07/20 Status: Ordered docusate sodium 100 mg oral capsule 1 capsule, By Mouth, 2 times a day, # 60 capsule, 5 Refills, Maintenance, 07/30/20 15:26:00 EST, [facility], 162.56, cm, 02/24/20 9:30:00 EDT, Height Start Date: 07/30/20 Status: Ordered EARWAX TREATMENT DROPS 6.5% EARWAX TREATMENT DROPS 6.5%, See Instructions, # 1 each, Refills 11, Tot. Refills 11, Maintenance, USE DIRECTED FAX [phone], 10/01/19 11:14:00 EST, [facility];, Compound Start Date: 10/01/19 Status: Ordered Milk of Magnesia 8% oral suspension See Instructions, TAKE 2 TABLESPOONFULS (30 ML) BY MOUTH AT BEDTIME NEEDED FOR CONSTIPATION ON DAY 3 OF NO BM / SEE BISCOLAX SUPP ORDER 30ML=2,400MG, # 300 mL, 5 Refills, Acute, [facility], 162.56, cm, 02/24/20 9:30:00 EDT, Height Start Date: 10/30/20 Status: Ordered MILLITRIUM TABLET See Instructions, 30, 11, 11, 06/20/08 13:07:29, TAKE 1 TABLET BY MOUTH DAILY (VITAMIN), [facility] [address] [place] [address], Constant Indicator, MILLITRIUM TABLET Start Date: 06/20/08 [...] bid prn nasal dryness PER DAWIT STOREY SAL[employer] TEAM RECRUITER-C FAX [phone], 11/02/18 14:15:30 EST, Compound Start Date: 11/02/18 Status: Ordered Ocuflox 0.3% solution 2 drops, Eyes, Both, 4 times a day, # 10 mL, 0 Refills, Maintenance, 01/10/17 14:21:09, Ophth Solution, 2 drops Eyes, Both 4 times a day Start Date: 01/10/17 Status: Ordered Polysporin 500 u-34396 u/gm ointment See Instructions, APPLY A THIN LAYER TOPICALLY TWICE DAILY NEEDED TO RED, IRRITATED SKIN X 7 DAYS / SEE ANCILLARY ORDERS (BACITRACIN-POLYMYXIN OINTMENT), # 28.3 Gm, 5 Refills, Acute, [facility], 7, APPLY A THIN LAYER TOPICALLY TWICE DAILY N... Start Date: 03/30/20 Status: Ordered Polysporin 500 u-07349 u/gm ointment See Instructions, APPLY A THIN [...] tablet, 1 Refills, Maintenance, 09/08/20 10:55:00 EST, [facility], 162.56, cm, 02/24/20 9:30:00 EDT, Height [...] MG Q6H PRN PER DR CRANE FAX [phone], 02/01/19 9:46:36 EDT, Compound Start Date: 02/01/19 Status: Ordered Suphedrin 30 mg oral tablet See Instructions, TAKE 1 TAB (30 MG) BY MOUTH EVERY 6 HRS NEEDED FOR NASAL CONGESTION/ SEE ANCILLARY ORDERS (SUDOGEST EQUIVALENT), # 30 tablet, 11 Refills, Acute, [facility], 162.56, cm, 02/24/20 9:30:00 EDT, Height Start Date: 05/22/20 Status: Ordered THERA CAPLETS THERA CAPLETS, See Instructions, # 30 each, Refills 5, Tot. Refills 5, Maintenance, TAKE ONE CAPLETBY MOUTH QD PER DR ROSA MARIA HUGHESX [phone], 10/08/20 11:48:00 EST, [facility], 162.56, cm, 02/24/20 9:30:00 EDT, Height Start Date: 10/08/20 Status: Ordered Tinactin 1% spray 1 sprays, Topically, 2 times a day, # 120 mL, 1 Refills, Maintenance, 11/01/19 10:28:00 EST, [place], 1 sprays Topically 2 times a day, 162.56, cm, 02/12/19 10:36:00 EDT, Height Start Date: 11/01/19 Status: Ordered TUSSIN KUSHAL [place] KUSHAL, See Instructions, # 420 mL, Refills 1, Tot. Refills 1, Maintenance, 10 ML PO Q4H PRN FORCOUGH AT BEDTIME PER DR CRANE FAX [phone], 05/22/20 8:48:00 EDT, [facility], 162.56, cm, 02/24/20 9:30:00 EDT, Height Start Date: 05/22/20 Status: Ordered Tylenol 325 mg oral tablet 650 mg, 2, tablet, By Mouth, Every 4 hours, PER DR CRANE, # 168 tablet, Refills 5, Tot. Refills 5, Maintenance, 10/04/19 10:27:00 EST, Route to Pharmacy Electronically, [facility], 162.56, cm, 02/12/19 10:36:00 EDT, Height [...] Active Underweight(Confirmed) Active Vitamin D deficiency(Confirmed) Active 66150; repeat 2020 2colo 2006 nl, repeat 2015 3Colonoscopy 2016 positive polyp, repeat 2020. 4colo 2015 Social History Social History Type Response Smoking Status Never smoker entered on: 02/01/16 Sex
--- OUTSIDE RECORDS SUMMARY | 2024-04-02 09:38 | XMS_ITS | Continuity of Care Document ---
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 Name Role Phone Schuyler Crane MD Primary Care Physician [phone] [facility]23 - 11/23/23 [facility] [address] [place] [address]- Allergies, Adverse Reactions, Alerts Substance Reaction Severity [...] 08/25/04 G cristy 1Result Comment: Td - [facility]# [id number] 2Result Comment: PCV23 - [facility]# [id number] 3Result Comment: [facility]# [phone] 4Result Comment: [10/28/2016] pharmacy 5Admin Note: given [...] 10/14/22 8:03:00 EST, Route to Pharmacy Electronically, [facility], 162.56, cm, 07/04/22 8:33:00 EDT, Height Start Date: 10/14/22 Status: Ordered All Day Allergy 10 mg oral tablet See Instructions, TAKE 1 TABLET (10 MG) BY MOUTH DAILY IN THE AM FOR SEASONAL ALLERGIES FROM DECEMBER THROUGH JUNE (START 12/24 / END 07/25) SEE ANCILLARY ORDERS, # 30 tablet, 2 Refills, Maintenance, 04/13/23 14:33:00 EDT, [facility], 162.56, cm, 0... Start Date: 04/13/23 Status: Ordered amLODIPine 10 mg oral tablet 1 tablet, By Mouth, Daily in AM, FOR HYPERTENSION., # 30 tablet, 5 Refills, Maintenance, 10/25/23 0:22:00 EST, [facility], 162.56, cm, 10/03/23 9:00:00 EST, Height Start Date: 10/25/23 Status: Ordered ANTACID 500 MG CHEWABLE TAB ANTACID 500 MG CHEWABLE TAB, See Instructions, # 90 each, Refills 3, Tot. Refills 3, Maintenance, TAKE 1 TABLET PO TID FOR OSTEOPOROSIS. MAY CRUSH TABLET PER DR ROSA MARIA CRUZ [phone], 07/20/18 12:11:49EDT, Compound Start Date: 07/20/18 Status: Ordered benzonatate 100 mg oral capsule 1 capsule, By Mouth, 3 times a day, PRN NEEDED FOR COUGH / IF NO IMPROVEMENT IN 3 DAYS NOTIFY MD/ IC, JAGRUTI, # 21 capsule, 0 Refills, Maintenance, 10/05/23 12:01:00 EST, [facility], 162.56, cm, 10/03/23 9:00:00 EST, Height Start Date: 10/05/23 Status: Ordered bisacodyl 10 mg rectal suppository See Instructions, INSERT 1 SUPP (10MG) INTO RECTUM NEEDED IF MILK OF MAGNESIA INEFFECTIVE AFTER 8 HRS/BISAC- EVAC EQUIVALENT/ IF SUPPOSITORY INEFFECTIVE AFTER 4 HRS CALL MD, # 7 supp, 11 Refills, Acute, [facility], 162.56, cm, 02/25/21 9:29:00... Start Date: 04/15/21 Status: Ordered Blood Pressure Monitor See Instructions, 1, 0, 0, 06/11/07 11:11:37, PRN, HTN, ADS OPPTHS, [facility] [place] [address] Start Date: 06/11/07 Status: Ordered calcium carbonate 500 mg (200 mg elemental calcium) oral tablet, chewable 1, tablet, By Mouth, 3 times a day, CRUSH. IC: CALCIUM CARBONATE, # 90 tablet, Refills 5, Maintenance, 10/02/23 8:50:00 EST, Route to Pharmacy Electronically, [facility], 162.56, cm, 09/19/23 10:28:00 EST, Height Start Date: 10/02/23 Status: Ordered carbamide peroxide 6.5% otic solution See Instructions, INSTILL 4 DROPS INTO EACH EAR TWICE DAILY FOR 5 DAYS EACH MONTH / IC: CARBAMIDE PEROXIDE (EAR DROPS 6.5%), # 15 mL, 11 Refills, Maintenance, 09/01/23 9:17:00 EST, [facility], 30, INSTILL 4 DROPS INTO EACH [...] capsule, 5 Refills, Maintenance, 11/23/23 20:00:00 EST, [facility], 162.56, cm, 10/03/23 9:00:00 EST, Height Start Date: 11/23/23 Status: Ordered EARWAX TREATMENT DROPS 6.5% EARWAX TREATMENT DROPS 6.5%, See Instructions, # 1 each, Refills 11, Tot. Refills 11, Maintenance, USE DIRECTED FAX [phone], 12/02/20 14:40:00 EST, [facility], 162.56, cm, 02/24/20 9:30:00 EDT, Height Start Date: 12/02/20 Status: Ordered fluoride 1.1% topical gel See Instructions, USE 1/4 INCH OF GEL TO BRUSH TEETH DAILY IN THE EVENING / BRUSH THOROUGHLY ALONG GUMLINE IC: DENTAGEL, # 56 Gm, 11 Refills, Maintenance, 09/21/23 16:44:00 EST, [facility], 30, USE 1/4 INCH OF GEL TO BRUSH TEETH DAILY IN THE EVEN... Start Date: 09/21/23 Status: Ordered Carolyn-jag 8.6 mg oral tablet 1 tablet, By Mouth, Daily in PM, FOR CONSTIPATION / SEE MILK OF MAG ORDERS / IC: SENNA 8.6 MG, # 15tablet, 6 Refills, Maintenance, 10/14/22 8:03:00 EST, [facility], 162.56, cm, 07/04/22 8:33:00EDT, Height Start Date: 10/14/22 Status: Ordered Hospital Bed See Instructions, # 1 each, Refills 0, Tot. Refills 0, Maintenance, [facility] DX: Left hip fracture, seizure dis, impulse control disorder, atypical autism. Duration ongoing NPI#[id number] Height: 5'6 Weight: 137lbs, 03/22/23 13:55:... Start Date: 03/22/23 Status: Ordered Milk of Magnesia 8% oral suspension See Instructions, TAKE 2 TABLESPOONFULS (30 ML) BY MOUTH AT BEDTIME NEEDED FOR CONSTIPATION ON DAY 3 OF NO BM / SEE BISCOLAX SUPP ORDER 30ML=2,400MG, # 300 mL, 5 Refills, Acute, [facility], 162.56, cm, 02/24/20 9:30:00 EDT, Height Start Date: 10/30/20 Status: Ordered MILLITRIUM TABLET See Instructions, 30, 11, 11, 06/20/08 13:07:29, TAKE 1 TABLET BY MOUTH DAILY (VITAMIN), [facility] [address] [place] [id number], Constant Indicator, MILLITRIUM TABLET Start Date: 06/20/08 [...] tablet, 0 Refills, Maintenance, 10/03/23 8:50:00 EST, [facility], Partial fill upon patient request if the prescription... Start Date: 10/03/23 Status: Ordered Polysporin 500 u-47973 u/gm ointment See Instructions, APPLY A THIN LAYER TOPICALLY TWICE DAILY NEEDED TO RED, IRRITATED SKIN X 7 DAYS / SEE ANCILLARY ORDERS (BACITRACIN-POLYMYXIN OINTMENT), # 28.3 Gm, 5 Refills, Maintenance, 04/18/23 8:59:00 EDT, [facility], 7, APPLY A THIN LAYE... Start Date: 04/18/23 Status: Ordered pravastatin 40 mg oral tablet 1 tablet, By Mouth, Daily, IN PM FOR HYPERLIPIDEMIA., # 30 tablet, 5 Refills, Maintenance, 248:50:00 EST, [facility], 162.56, cm, 09/19/23 10:28:00 EST, Height Start Date: 10/02/23 Status: Ordered Profola oral tablet 1 tablet, By Mouth, Daily, # 30 tablet, 11 Refills, Maintenance, 05/19/23 10:41:00 EDT, [facility], Partial fill upon patient request if [...] tablet, 11 Refills, Maintenance, 10/26/23 8:49:00 EST, [facility], 162.56, cm, 10/03/23 9:00:00 EST, Height Start Date: 10/26/23 Status: Ordered SUDOGEST 30 MG TABLETS SUDOGEST 30 MG TABLETS, See Instructions, # 30 each, Refills 11, Tot. Refills 11, Maintenance, TAKE30 MG Q6H PRN PER DR CRANE FAX [phone], 02/01/19 9:46:36 EDT, [facility] Start Date: 02/01/19 Status: Ordered Thera oral tablet 1 tablet, By Mouth, Daily in AM, VITAMIN., # 30 tablet, 5 Refills, Maintenance, 10/25/23 10:03:00 EST, [facility], 30, TAKE 1 TABLET BY MOUTH [...] mL, 1 Refills, Maintenance, 12/01/20 8:15:00 EST, [place], [facility], 1 sprays Topically 2 times a day, 162.56, cm, 02/24/20 9:30:00 EDT, Height Start Date: 12/01/20 Status: Ordered CHAKASSIN KUHSAL AVINAIN KUSHAL, See Instructions, # 420 mL, Refills 1, Tot. Refills 1, Maintenance, 10 ML PO Q4H PRN FORCOUGH AT BEDTIME PER DR CRANE FAX [phone], 05/22/20 8:48:00 EDT, [facility], 162.56, cm, 02/24/20 [...] Confirmed Active Conjunctivitis Confirmed Active Gynecomastia Confirmed 12/31/09 Active Status post-operative repair of closed fracture of left hip Confirmed Active Left hip hemiarthoplasty 02/26/2023 Confirmed Active Hypercholesterolemia Confirmed Active Hypertension Confirmed Active Microcephaly Confirmed Active Periodontal disease Confirmed Active Colon polyp 3, 4 Confirmed Active Pressure injury of skin Confirmed Active Seizure disorder Confirmed Active Vitamin D deficiency Confirmed Active 20354; repeat 2020 2colo 2005 nl, repeat 2015 3Colonoscopy 2016 positive polyp, repeat 2020. 4colo 2015 Social History Social History Type Response Smoking Status Never smoker entered on: 02/01/16 Sex Patient Care team information Care Team Personnel Name: Rosa Maria HUSTON, Schuyler Pope Position: [facility] Physician - Primary Care Member Role: PCP Address: Address: [address] [place] [address] [place] [address]- Care Team Related Persons Name: ELLE ALMEIDA Address: home [address] [place] [id number] Name: ZAK SHELL
--- OUTSIDE RECORDS SUMMARY | 2024-04-02 09:38 | XMS_ITS | Continuity of Care Document ---
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 Allergies, Adverse Reactions, Alerts Substance Reaction Severity [...] 5 Refills, Soft Stop, 04/03/20 16:18:00 EDT, [facility], 162.56, cm, 02/24/20 9:30:00 EDT, Height Start Date: 04/03/20 Status: Ordered amLODIPine 10 mg oral tablet 10 mg, 1, tablet, By Mouth, Daily, # 90 tablet, Refills 1, Tot. Refills 1, Soft Stop, 04/09/20 13:02:00 EDT, Route to Pharmacy Electronically, [facility], 162.56, cm, 02/24/20 9:30:00 EDT, Height Start Date: 04/09/20 Status: Ordered ANTACID 500 MG CHEWABLE TAB ANTACID 500 MG CHEWABLE TAB, See Instructions, # 90 each, Refills 3, Tot. Refills 3, Maintenance, TAKE 1 TABLET PO TID FOR OSTEOPOROSIS. MAY CRUSH TABLET PER DR CRANE FX [phone], 07/20/18 12:11:49EDT, Compound Start Date: 07/20/18 Status: Ordered Bisco-Lax 10 mg rectal suppository See Instructions, INSERT 1 SUPP (10MG) INTO RECTUM NEEDED IF MILK OF MAGNESIA INEFFECTIVE AFTER 8 HRS/BISAC- EVAC EQUIVALENT/ IF SUPPOSITORY INEFFECTIVE AF, # 7 supp, 11 Refills, Acute, [facility], 162.56, cm, 02/24/20 9:30:00 EDT, Height Start Date: 03/30/20 Status: Ordered Blood Pressure Monitor See Instructions, 1, 0, 0, 06/11/07 11:11:37, PRN, HTN, ADS OPPTHS, [facility] [id number] [place] [address] Start Date: 06/11/07 Status: Ordered calcium carbonate 500 mg (200 mg elemental calcium) oral tablet, chewable 500 mg, 1, tablet, By Mouth, 3 times a day, PER DR CRANE, # 90 tablet, Refills 11, Tot. Refills 11, Maintenance, 12/09/19 14:35:00 EDT, Route to Pharmacy Electronically, [facility], 162.56, cm, 02/12/19 10:36:00 EDT, Height [...] 02/06/20 12:14:00 EDT, Route to Pharmacy Electronically, [facility], 162.56, cm, 02/12/19 10:36:00 EDT, Height [...] Tot. 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 Start Date: 03/30/20 Status: Ordered Polysporin 500 u-46999 u/gm ointment See Instructions, APPLY A THIN [...] Daily, # 90 tablet, 1 Refills, Maintenance, 03/12/20 12:59:00 EDT, [facility], 162.56, cm, 02/24/20 9:30:00 EDT, Height Start Date: 03/12/20 Status: Ordered Prevident 1.1% topical gel See [...] MG Q6H PRN PER DR CRANE FAX [phone], 02/01/19 9:46:36 EDT, Compound Start Date: 02/01/19 Status: Ordered THERA CAPLETS THERA CAPLETS, See Instructions, # 30 each, Refills 5, Tot. Refills 5, Maintenance, TAKE ONE CAPLETBY MOUTH QD PER DR CRANE FAX [phone], 03/12/20 12:59:00 EDT, Compound, 162.56, cm, 02/24/20 9:30:00 EDT, Height Start Date: 03/12/20 Status: Ordered Tinactin 1% spray 1 sprays, Topically, 2 times a day, # 120 mL, 1 Refills, Maintenance, 11/01/19 10:28:00 EST, [place],[facility], 1 sprays Topically 2 times a day, 162.56, cm, 02/12/19 10:36:00 EDT, Height Start Date: 11/01/19 Status: Ordered TUSSIN DM TUSSIN DM, See Instructions, # 420 mL, Refills 1, Tot. Refills 1, Maintenance, 10 ML PO Q4H PRN FORCOUGH AT BEDTIME PER DR CRANE FAX [phone], 04/23/18 12:14:04 EDT, Compound Start Date: 04/23/18 Status: Ordered Tylenol 325 mg oral tablet 650 mg, 2, tablet, By Mouth, Every 4 hours, PER DR CRANE, # 168 tablet, Refills 5, Tot. Refills 5, Maintenance, 10/04/19 10:27:00 EST, Route to Pharmacy Electronically, [facility], 162.56, cm, 02/12/19 10:36:00 EDT, Height [...] Active Underweight(Confirmed) Active Vitamin D deficiency(Confirmed) Active 09659; repeat 2020 2colo 2006 nl, repeat 2015 3Colonoscopy 2016 positive polyp, repeat 2020. 4colo 2015 Social History Social History Type Response Smoking Status Never smoker entered on: 02/01/16 Sex
--- OUTSIDE RECORDS SUMMARY | 2024-04-02 09:38 | XMS_ITS | Continuity of Care Document ---
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 Name Role Phone Schuyler Crane MD Primary Care Physician [facility] 03[facility]01/23 - 03/31/23 [facility] [place] Adult [address] [place] [address]- Allergies, Adverse Reactions, Alerts Substance Reaction Severity [...] 08/25/04 G cristy 1Result Comment: Td - [facility]# [id number] 2Result Comment: PCV23 - [facility]# [id number] 3Result Comment: [facility]# [id number] 4Result Comment: [10/28/2016] pharmacy 5Admin Note: given [...] 10/14/22 8:03:00 EST, Route to Pharmacy Electronically, [facility], 162.56, cm, 07/04/22 8:33:00 EDT, Height Start Date: 10/14/22 Status: Ordered All Day Allergy 10 mg oral tablet See Instructions, TAKE 1 TABLET (10 MG) BY MOUTH DAILY IN THE AM FOR SEASONAL ALLERGIES FROM DECEMBER THROUGH JUNE (START 12/24 / END 07/25) SEE ANCILLARY ORDERS, # 30 tablet, 2 Refills, Maintenance, 07/22/22 15:15:00 EDT, [facility], 162.56, cm, 1... Start Date: 07/22/22 Status: Ordered amLODIPine 10 mg oral tablet See Instructions, TAKE 1 TABLET (10 MG) BY MOUTH DAILY IN AM FOR HYPERTENSION, # 30 tablet, 5 Refills, 09/29/22 11:37:00 EST, [facility], 162.56, cm, 07/04/22 8:33:00 EDT, Height Start Date: 09/29/22 Status: Ordered ANTACID 500 MG CHEWABLE TAB ANTACID 500 MG CHEWABLE TAB, See Instructions, # 90 each, Refills 3, Tot. Refills 3, Maintenance, TAKE 1 TABLET PO TID FOR OSTEOPOROSIS. MAY CRUSH TABLET PER DR ROSA MARIA CRUZ [phone], 07/20/18 12:11:49EDT, Compound Start Date: 07/20/18 Status: Ordered benzonatate 100 mg oral capsule 1 capsule, By Mouth, 3 times a day, PRN NEEDED FOR COUGH / IF NO IMPROVEMENT IN 3 DAYS NOTIFY MD/ IC, JAGRUTI, # 21 capsule, 0 Refills, Maintenance, 02/17/23 8:57:00 EDT, [facility], 162.56, cm, 07/04/22 8:33:00 EDT, Height Start Date: 02/17/23 Status: Ordered bisacodyl 10 mg rectal suppository See Instructions, INSERT 1 SUPP (10MG) INTO RECTUM NEEDED IF MILK OF MAGNESIA INEFFECTIVE AFTER 8 HRS/BISAC- EVAC EQUIVALENT/ IF SUPPOSITORY INEFFECTIVE AFTER 4 HRS CALL MD, # 7 supp, 11 Refills, Acute, [facility], 162.56, cm, 02/25/21 9:29:00... Start Date: 04/15/21 Status: Ordered Blood Pressure Monitor See Instructions, 1, 0, 0, 06/11/07 11:11:37, PRN, HTN, ADS OPPTHS, [facility] [place] [address] Start Date: 06/11/07 Status: Ordered calcium carbonate 500 mg (200 mg elemental calcium) oral tablet, chewable 1, tablet, By Mouth, 3 times a day, CRUSH. IC: CALCIUM CARBONATE, # 90 tablet, Refills 5, Maintenance, 02/17/23 8:57:00 EDT, Route to Pharmacy Electronically, [facility], 162.56, cm, 07/04/22 8:33:00 EDT, Height Start Date: 02/17/23 Status: Ordered carbamide peroxide 6.5% otic solution See Instructions, INSTILL 4 DROPS INTO EACH EAR TWICE DAILY FOR 5 DAYS EACH MONTH / IC: CARBAMIDE PEROXIDE (EAR DROPS 6.5%), # 15 mL, 11 Refills, Maintenance, 08/21/22 7:49:00 EST, [facility], 30, INSTILL 4 DROPS INTO EACH [...] capsule, 5 Refills, Maintenance, 10/20/22 6:09:00 EST, [facility], 162.56, cm, 07/04/22 8:33:00 EDT, Height Start Date: 10/20/22 Status: Ordered EARWAX TREATMENT DROPS 6.5% EARWAX TREATMENT DROPS 6.5%, See Instructions, # 1 each, Refills 11, Tot. Refills 11, Maintenance, USE DIRECTED FAX [phone], 12/02/20 14:40:00 EST, [facility];, [facility], 162.56, cm, 02/24/20 9:30:00 EDT, Height Start Date: 12/02/20 Status: Ordered fluoride 1.1% topical gel See Instructions, USE 1/4 INCH OF GEL TO BRUSH TEETH DAILY IN THE EVENING / BRUSH THOROUGHLY ALONG GUMLINE IC: DENTAGEL, # 56 Gm, 11 Refills, [facility], 30, USE 1/4 INCH OF GEL TO BRUSH TEETH DAILY IN THE EVENING / BRUSH THOROUGHLY ALONG GUMLINE... Start Date: 01/28/22 Status: Ordered Carolyn-jag 8.6 mg oral tablet 1 tablet, By Mouth, Daily in PM, FOR CONSTIPATION / SEE MILK OF MAG ORDERS / IC: SENNA 8.6 MG, # 15tablet, 6 Refills, Maintenance, 10/14/22 8:03:00 EST, [facility], 162.56, cm, 07/04/22 8:33:00EDT, Height Start Date: 10/14/22 Status: Ordered GNP MILK OF MAGNESIA 1200 M 1200 KAYLA GNP MILK OF MAGNESIA 1200 M 1200 KAYLA, See Instructions, # 300 mL, 5 Refills, Maintenance, TAKE 2 TABLESPOONFULS (30 ML) BY MOUTH AT BEDTIME NEEDED FOR CONSTIPATION ON DAY 3 OF NO BM / SEE BISCOLAXSUPP ORDER 30ML=2,400MG, 12/22/22 14:47:00 EDT, 162... Start Date: 12/22/22 Status: Ordered GNP MILK OF MAGNESIA 1200 M 1200 KAYLA GNP MILK OF MAGNESIA 1200 M 1200 KAYLA, See Instructions, # 300 mL, 5 Refills, TAKE 2 TABLESPOONFULS (30 ML) BY MOUTH AT BEDTIME NEEDED FOR CONSTIPATION ON DAY 3 OF NO BM / SEE BISCOLAX SUPP ORDER 30ML=2,400MG, 162.56, cm, 02/25/21 9:29:00 EDT, Height Start Date: 11/09/21 Status: Ordered Hospital Bed See Instructions, # 1 each, Refills 0, Tot. Refills 0, Maintenance, [facility] DX: Left hip fracture, seizure dis, impulse control disorder, atypical autism. Duration ongoing NPI#[id number] Height: 5'6 Weight: 137lbs, 03/22/23 13:55:... Start Date: 03/22/23 Status: Ordered Milk of Magnesia 8% oral suspension See Instructions, TAKE 2 TABLESPOONFULS (30 ML) BY MOUTH AT BEDTIME NEEDED FOR CONSTIPATION ON DAY 3 OF NO BM / SEE BISCOLAX SUPP ORDER 30ML=2,400MG, # 300 mL, 5 Refills, Acute, [facility], 162.56, cm, 02/24/20 9:30:00 EDT, Height Start Date: 10/30/20 Status: Ordered MILLITRIUM TABLET See Instructions, 30, 11, 11, 06/20/08 13:07:29, TAKE 1 TABLET BY MOUTH DAILY (VITAMIN), [facility] [address] [place] [address], Constant Indicator, MILLITRIUM TABLET Start Date: 06/20/08 [...] bid prn nasal dryness PER 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 Start Date: 04/14/21 Status: Ordered pravastatin 40 mg oral tablet See Instructions, TAKE 1 TABLET (40 MG) BY MOUTH DAILY IN PM FOR HYPERLIPIDEMIA, # 30 tablet, 5 Refills, Maintenance, 02/17/23 13:00:00 EDT, [facility], 162.56, cm, 07/04/22 8:33:00 EDT, Height [...] (SUPHEDRIN EQUIVALENT), # 30 tablet, 11 Refills, [facility], 162.56, cm, 03/24/22 10:31:00 EDT, Height Start Date: 04/22/22 Status: Ordered SUDOGEST 30 MG TABLETS SUDOGEST 30 MG TABLETS, See Instructions, # 30 each, Refills 11, Tot. Refills 11, Maintenance, TAKE30 MG Q6H PRN PER DR CRANE FAX [phone], 02/01/19 9:46:36 EDT, Compound Start Date: 02/01/19 Status: Ordered THERA CAPLETS THERA CAPLETS, See Instructions, # 30 each, Refills 5, Tot. Refills 5, Maintenance, TAKE ONE CAPLETBY MOUTH QD PER DR CRANE FAX [phone], 10/08/20 11:48:00 EST, [facility], 162.56, cm, 02/24/20 [...] mL, 1 Refills, Maintenance, 12/01/20 8:15:00 EST, [place], [facility], 1 sprays Topically 2 times a day, 162.56, cm, 02/24/20 9:30:00 EDT, Height Start Date: 12/01/20 Status: Ordered KAILYNIN DM JAMAL DM, See Instructions, # 420 mL, Refills 1, Tot. Refills 1, Maintenance, 10 ML PO Q4H PRN FORCOUGH AT BEDTIME PER DR CRANE FAX [phone], 05/22/20 8:48:00 EDT, [facility], 162.56, cm, 02/24/20 [...] Confirmed Active Vitamin D deficiency Confirmed Active 78319; repeat 2020 2colo 2005 nl, repeat 2015 3Colonoscopy 2016 positive polyp, repeat 2020. 4colo 2015 Social History Social History Type Response Smoking Status Never smoker entered on: 02/01/16 Sex Patient Care team information Care Team Personnel Name: Schuyler Crane MD Position: [facility] Physician - Primary Care Member Role: PCP Address: Address: [address] [place] [address]- Care Team Related Persons Name: ELLE ALMEIDA Address: home [address] [place] [id number] Name: ZAK SHELL
--- OUTSIDE RECORDS SUMMARY | 2024-04-02 09:38 | XMS_ITS | Continuity of Care Document ---
Author Organization [facility] Salvatore Todd lt Address [address] [place] [address]- Care Team Providers Care Animal Cop Name Role Phone Schuyler Crane MD Primary Care Physician [phone] [facility] 11[facility]23[facility]23 - 12/23/23 [facility] Adult [address] [place] [address]- Allergies, Adverse Reactions, Alerts Substance Reaction Severity Status amoxicillin Active cephalosporins Active penicillins Active benzodiazepines Active Klonopin Wafer Active Ativan Active Immunizations Given and Recorded [...] Adult (oldterm) 08/25/04 Vishal muniz 1Result Comment: [place] - [facility] [place] [id number] 2Result Comment: PCV23 - [facility] [place]# [id number] 3Result Comment: [facility] [place]# [id number] 4Result Comment: [10/28/2016] pharmacy 5Admin Note: given [...] 10/14/22 8:03:00 EST, Route to Pharmacy Electronically, [facility], 162.56, cm, 07/04/22 8:33:00 EDT, Height Start Date: 10/14/22 Status: Ordered acetaminophen 325 mg oral tablet 2, tablet, By Mouth, 2 times a day, PRN, # 20 tablet, Refills 0, Tot. Refills 0, Maintenance, NEEDED, 12/12/23 11:09:00 EDT, Route to Pharmacy Electronically, [facility], 162.56, cm, 12/11/2409:47:00 EDT, Height Start Date: 12/12/23 Stop Date: 12/17/23 Status: Ordered All Day Allergy 10 mg oral tablet 1 tablet, By Mouth, Daily in AM, FOR SEASONAL ALLERGIES FROM DECEMBER THROUGH JUNE (START 12/24 / ) SEE ANCILLARY ORDERS., # 30 tablet, 11 Refills, Maintenance, 12/21/23 7:45:00 EDT, [facility], 162.56, cm, 12/12/23 10:47:00 EDT, Height Start Date: 12/21/23 Status: Ordered amLODIPine 10 mg oral tablet 1 tablet, By Mouth, Daily in AM, FOR HYPERTENSION., # 30 tablet, 5 Refills, Maintenance, 10/25/23 0:22:00 EST, [facility], 162.56, cm, 10/03/23 9:00:00 EST, Height Start Date: 10/25/23 Status: Ordered ANTACID 500 MG CHEWABLE TAB ANTACID 500 MG CHEWABLE TAB, See Instructions, # 90 each, Refills 3, Tot. Refills 3, Maintenance, TAKE 1 TABLET PO TID FOR OSTEOPOROSIS. MAY CRUSH TABLET PER DR ROSA MARIA CRUZ [phone], 07/20/18 12:11:49EDT, Compound Start Date: 07/20/18 Status: Ordered benzonatate 100 mg oral capsule 1 capsule, By Mouth, 3 times a day, PRN NEEDED FOR COUGH / IF NO IMPROVEMENT IN 3 DAYS NOTIFY MD/ IC, JAGRUTI, # 21 capsule, 0 Refills, Maintenance, 10/05/23 12:01:00 EST, [facility], 162.56, cm, 10/03/23 9:00:00 EST, Height Start Date: 10/05/23 Status: Ordered bisacodyl 10 mg rectal suppository See Instructions, INSERT 1 SUPP (10MG) INTO RECTUM NEEDED IF MILK OF MAGNESIA INEFFECTIVE AFTER 8 HRS/BISAC- EVAC EQUIVALENT/ IF SUPPOSITORY INEFFECTIVE AFTER 4 HRS CALL MD, # 7 supp, 11 Refills, Acute, [facility], 162.56, cm, 02/25/21 9:29:00... Start Date: 04/15/21 Status: Ordered Blood Pressure Monitor See Instructions, 1, 0, 0, 06/11/07 11:11:37, PRN, HTN, ADS OPPTHS, [facility] [id number] [place] [address] Start Date: 06/11/07 Status: Ordered calcium carbonate 500 mg (200 mg elemental calcium) oral tablet, chewable 1, tablet, By Mouth, 3 times a day, CRUSH. IC: CALCIUM CARBONATE, # 90 tablet, Refills 5, Maintenance, 10/02/23 8:50:00 EST, Route to Pharmacy Electronically, [facility], 162.56, cm, 09/19/23 10:28:00 EST, Height Start Date: 10/02/23 Status: Ordered carbamide peroxide 6.5% otic solution See Instructions, INSTILL 4 DROPS INTO EACH EAR TWICE DAILY FOR 5 DAYS EACH MONTH / IC: CARBAMIDE PEROXIDE (EAR DROPS 6.5%), # 15 mL, 11 Refills, Maintenance, 09/01/23 9:17:00 EST, [facility], 30, INSTILL 4 DROPS INTO EACH [...] capsule, 5 Refills, Maintenance, 11/23/23 20:00:00 EST, [facility], 162.56, cm, 10/03/23 9:00:00 EST, Height Start Date: 11/23/23 Status: Ordered EARWAX TREATMENT DROPS 6.5% EARWAX TREATMENT DROPS 6.5%, See Instructions, # 1 each, Refills 11, Tot. Refills 11, Maintenance, USE DIRECTED FAX [phone], 12/02/20 14:40:00 EST, [facility];, [facility], 162.56, cm, 02/24/20 9:30:00 EDT, Height Start Date: 12/02/20 Status: Ordered fluoride 1.1% topical gel See Instructions, USE 1/4 INCH OF GEL TO BRUSH TEETH DAILY IN THE EVENING / BRUSH THOROUGHLY ALONG GUMLINE IC: DENTAGEL, # 56 Gm, 11 Refills, Maintenance, 09/21/23 16:44:00 EST, [facility], 30, USE 1/4 INCH OF GEL TO BRUSH TEETH DAILY IN THE EVEN... Start Date: 09/21/23 Status: Ordered Carolyn-jag 8.6 mg oral tablet 1 tablet, By Mouth, Daily in PM, FOR CONSTIPATION / SEE MILK OF MAG ORDERS / IC: SENNA 8.6 MG, # 15tablet, 6 Refills, Maintenance, 10/14/22 8:03:00 EST, [facility], 162.56, cm, 07/04/22 8:33:00EDT, Height Start Date: 10/14/22 Status: Ordered Hospital Bed See Instructions, # 1 each, Refills 0, Tot. Refills 0, Maintenance, [facility] DX: Left hip fracture, seizure dis, impulse control disorder, atypical autism. Duration ongoing NPI#[id number] Height: 5'6 Weight: 137lbs, 03/22/23 13:55:... Start [...] TAKE 1 TABLET BY MOUTH DAILY (VITAMIN), [facility] [address] [place] [address], Constant Indicator, MILLITRIUM TABLET Start Date: 06/20/08 [...] tablet, 0 Refills, Maintenance, 10/03/23 8:50:00 EST, [facility], Partial fill upon patient request if the prescription... Start Date: 10/03/23 Status: Ordered Polysporin 500 u-04259 u/gm ointment See Instructions, APPLY A THIN LAYER TOPICALLY TWICE DAILY NEEDED TO RED, IRRITATED SKIN X 7 DAYS / SEE ANCILLARY ORDERS (BACITRACIN-POLYMYXIN OINTMENT), # 28.3 Gm, 5 Refills, Maintenance, 04/18/23 8:59:00 EDT, [facility], 7, APPLY A THIN LAYE... Start Date: 04/18/23 Status: Ordered pravastatin 40 mg oral tablet 1 tablet, By Mouth, Daily, IN PM FOR HYPERLIPIDEMIA., # 30 tablet, 5 Refills, Maintenance, 248:50:00 EST, [facility], 162.56, cm, 09/19/23 10:28:00 EST, Height Start Date: 10/02/23 Status: Ordered Profola oral tablet 1 tablet, By Mouth, Daily, # 30 tablet, 11 Refills, Maintenance, 05/19/23 10:41:00 EDT, [facility], Partial fill upon patient request if [...] tablet, 11 Refills, Maintenance, 10/26/23 8:49:00 EST, [facility], 162.56, cm, 10/03/23 9:00:00 EST, Height Start Date: 10/26/23 Status: Ordered SUDOGEST 30 MG TABLETS SUDOGEST 30 MG TABLETS, See Instructions, # 30 each, Refills 11, Tot. Refills 11, Maintenance, TAKE30 MG Q6H PRN PER DR CRANE FAX [phone], 02/01/19 9:46:36 EDT, Compound Start Date: 02/01/19 Status: Ordered Thera oral tablet 1 tablet, By Mouth, Daily in AM, VITAMIN., # 30 tablet, 5 Refills, Maintenance, 10/25/23 10:03:00 EST, [facility], 30, TAKE 1 TABLET BY MOUTH [...] mL, 1 Refills, Maintenance, 12/01/20 8:15:00 EST, [place], [facility], 1 sprays Topically 2 times a day, 162.56, cm, 02/24/20 9:30:00 EDT, Height Start Date: 12/01/20 Status: Ordered TUSSIN DM TUSSIN DM, See Instructions, # 420 mL, Refills 1, Tot. Refills 1, Maintenance, 10 ML PO Q4H PRN FORCOUGH AT BEDTIME PER DR CRANE FAX [phone], 05/22/20 8:48:00 EDT, [facility], 162.56, cm, 02/24/20 [...] Confirmed Active Vitamin D deficiency Confirmed Active 09928; repeat 2020 2colo 2006 nl, repeat 2015 3Colonoscopy 2016 positive polyp, repeat 2020. 4colo 2015 Social History Social History Type Response Smoking Status Never smoker entered on: 02/01/16 Sex Patient Care team information Care Team Personnel Name: Rosa Maria HUSTON, Schuyler Pope Position: [facility] Physician - Primary Care Member Role: PCP Address: Address: [address] [place] [address] [place] [address]- Care Team Related Persons Name: ELLE ALMEIDA Address: [address] [place] [address] Name: ZAK SHELL
--- OUTSIDE RECORDS SUMMARY | 2024-04-02 09:38 | XMS_ITS | Continuity of Care Document ---
Author Organization [facility] Mike Chase Todd lt Address [address] [place] [address]- Care Team Providers Care [employer] Communications Professor Name Role Phone Schuyler Crane MD Primary Care Physician [phone] [facility]counter [facility] Date(s): 05/03/22 - 06/02/22 [facility] [place], operated [facility] Adult [address] [place] [address]- Allergies, Adverse Reactions, Alerts Substance Reaction Severity [...] Adult (oldterm) 08/25/04 G cristy 1Result Comment: [facility]# [id number] 2Result Comment: [10/28/2016] pharmacy 3Admin Note: given [...] Replace Required Details, Route to Pharmacy Electronically, [facility], 162.56, cm, 02/25/21 9:29:00 EDT, He... Start Date: 08/31/21 Status: Ordered amLODIPine 10 mg oral tablet See Instructions, TAKE 1 TABLET (10 MG) BY MOUTH DAILY IN AM FOR HYPERTENSION, # 30 tablet, 5 Refills, [facility], 162.56, cm, 03/24/22 10:31:00 EDT, Height Start Date: 04/01/22 Status: Ordered ANTACID 500 MG CHEWABLE TAB ANTACID 500 MG CHEWABLE TAB, See Instructions, # 90 each, Refills 3, Tot. Refills 3, Maintenance, TAKE 1 TABLET PO TID FOR OSTEOPOROSIS. MAY CRUSH TABLET PER DR CRANE FX [phone], 07/20/18 12:11:49EDT, Compound Start Date: 07/20/18 Status: Ordered benzonatate 100 mg oral capsule 1 capsule, By Mouth, 3 times a day, PRN NEEDED FOR COUGH / IF NO IMPROVEMENT IN 3 DAYS NOTIFY / IC, JAGRUTI, # 21 capsule, 0 Refills, [facility], 162.56, cm, 12/06/21 13:34:00 EDT, Height Start Date: 02/25/22 Status: Ordered bisacodyl 10 mg rectal suppository See Instructions, INSERT 1 SUPP (10MG) INTO RECTUM NEEDED IF MILK OF MAGNESIA INEFFECTIVE AFTER 8 HRS/BISAC- EVAC EQUIVALENT/ IF SUPPOSITORY INEFFECTIVE AFTER 4 HRS CALL , # 7 supp, 11 Refills, Acute, [facility], 162.56, cm, 02/25/21 9:29:00... Start Date: 04/15/21 Status: Ordered Blood Pressure Monitor See Instructions, 1, 0, 0, 06/11/07 11:11:37, PRN, HTN, ADS OPPTHS, [facility] [id number] [place] [id number] Start Date: 06/11/07 Status: Ordered calcium carbonate 500 mg (200 mg elemental calcium) oral tablet, chewable See Instructions, TAKE 1 TABLET (500 MG) BY MOUTH 3 TIMES A DAY FOR OSTEOPOROSIS MAY CRUSH TABLET IC: CALCIUM CARBONATE, # 90 tablet, Refills 5, Instructions Replace Required Details, Route to Pharmacy Electronically, [facility], 162.56, cm, 11/23... Start Date: 02/25/22 Status: Ordered cetirizine 10 mg oral tablet 1 tablet, By Mouth, Daily in AM, FOR SEASONAL ALLERGIES FROM DECEMBER THROUGH JUNE (START 12/24) SEE ANCILLARY ORDERS., # 30 tablet, 5 Refills, [facility], 162.56, cm, 12/06/21 13:34:00 EDT, Height [...] 100 MG), # 60 capsule, 5 Refills, [facility], 162.56, cm, 12/06/21 13:34:00 EDT, Height Start Date: 01/13/22 Status: Ordered EARWAX TREATMENT DROPS 6.5% EARWAX TREATMENT DROPS 6.5%, See Instructions, # 1 each, Refills 11, Tot. Refills 11, Maintenance, USE DIRECTED FAX [phone], 12/02/20 14:40:00 EST, [facility];, [facility], 162.56, cm, [...] 30ML=2,400MG, # 300 mL, 5 Refills, Acute, [facility], 162.56, cm, 02/24/20 9:30:00 EDT, Height Start Date: 10/30/20 Status: Ordered MILLITRIUM TABLET See Instructions, 30, 11, 11, 06/20/08 13:07:29, TAKE 1 TABLET BY MOUTH DAILY (VITAMIN), [facility] [address] [place] [id number], Constant Indicator, MILLITRIUM TABLET Start Date: 06/20/08 [...] bid prn nasal dryness PER [facility] [employer] PROFESSOR-C FAX [phone], 11/02/18 14:15:30 EST, Compound Start Date: 11/02/18 Status: Ordered Ocuflox 0.3% solution 2 drops, Eyes, Both, 4 times a day, # 10 mL, 0 Refills, Maintenance, 01/10/17 14:21:09, Ophth Solution, 2 drops Eyes, Both 4 times a day Start Date: 01/10/17 Status: Ordered Polysporin 500 u-36132 u/gm ointment See Instructions, APPLY A THIN LAYER TOPICALLY TWICE DAILY NEEDED TO RED, IRRITATED SKIN X 7 DAYS / SEE ANCILLARY ORDERS (BACITRACIN-POLYMYXIN OINTMENT), # 28.3 Gm, 5 Refills, Maintenance, 04/14/21 14:39:00 EDT, [facility], 7, APPLY A THIN LAY... Start Date: 04/14/21 Status: Ordered pravastatin 40 mg oral tablet 1 tablet, By Mouth, Daily, IN PM FOR HYPERLIPIDEMIA., # 30 tablet, 5 Refills, [facility], 162.56, cm, 12/06/21 13:34:00 EDT, Height [...] (SUPHEDRIN EQUIVALENT), # 30 tablet, 11 Refills, [facility], 162.56, cm, 03/24/22 10:31:00 EDT, Height Start Date: 04/22/22 Status: Ordered SUDOGEST 30 MG TABLETS SUDOGEST 30 MG TABLETS, See Instructions, # 30 each, Refills 11, Tot. Refills 11, Maintenance, TAKE30 MG Q6H PRN PER DR CRANE FAX [phone], 02/01/19 9:46:36 EDT, Compound Start Date: 02/01/19 Status: Ordered THERA CAPLETS THERA CAPLETS, See Instructions, # 30 each, Refills 5, Tot. Refills 5, Maintenance, TAKE ONE CAPLETBY MOUTH QD PER DR CRANE FAX [phone], 10/08/20 11:48:00 EST, Compound, 162.56, cm, 02/24/20 9:30:00 EDT, Height Start Date: 10/08/20 Status: Ordered Thera oral tablet See Instructions, TAKE 1 TABLET BY MOUTH DAILY IN THE AM (VITAMIN), # 30 tablet, 5 Refills, [facility], 30, TAKE 1 TABLET BY MOUTH [...] mL, 1 Refills, Maintenance, 12/01/20 8:15:00 EST, [place], 1 sprays Topically 2 times a day, 162.56, cm, 02/24/20 9:30:00 EDT, Height Start Date: 12/01/20 Status: Ordered TUSSIN DM TUSSIN DM, See Instructions, # 420 mL, Refills 1, Tot. Refills 1, Maintenance, 10 ML PO Q4H PRN FORCOUGH AT BEDTIME PER DR CRANE FAX [phone], 05/22/20 8:48:00 EDT, Compound, 162.56, cm, 02/24/20 [...] Seizure disorder(Confirmed) Active Vitamin D deficiency(Confirmed) Active 99831; repeat 2020 2colo 2006 nl, repeat 2015 3Colonoscopy 2016 positive polyp, repeat 2020. 4colo 2015 Social History Social History Type Response Smoking Status Never smoker entered on: 02/01/16 Sex Care Team Personnel Name: Bisi HUSTON, Schuyler Pope Address: [address] [place] [address] [place], [place] [address]
--- OUTSIDE RECORDS SUMMARY | 2024-04-02 09:38 | XMS_ITS | Continuity of Care Document ---
Author Organization [facility] [place] Todd lt Address [address] [place] [address]- Care Team Providers Care Visual Developer Name Role Phone Schuyler Crane MD Primary Care Physician [facility] Date(s): 12/04/20 - 01/03/21 [facility] [address] [place] [address]- Allergies, Adverse Reactions, Alerts Substance Reaction Severity [...] 5 Refills, Soft Stop, 04/03/20 16:18:00 EDT, [facility], 162.56, cm, 02/24/20 9:30:00 EDT, Height Start Date: 04/03/20 Status: Ordered amLODIPine 10 mg oral tablet 10 mg, 1, tablet, By Mouth, Daily, # 90 tablet, Refills 1, Tot. Refills 1, Soft Stop, 10/08/20 8:13:00 EST, Route to Pharmacy Electronically, [facility], 162.56, cm, 02/24/20 9:30:00 EDT, Height Start Date: 10/08/20 Status: Ordered ANTACID 500 MG CHEWABLE TAB ANTACID 500 MG CHEWABLE TAB, See Instructions, # 90 each, Refills 3, Tot. Refills 3, Maintenance, TAKE 1 TABLET PO TID FOR OSTEOPOROSIS. MAY CRUSH TABLET PER DR ROSA MARIA CRUZ [phone], 07/20/18 12:11:49EDT, Compound Start Date: 07/20/18 Status: Ordered Bisco-Lax 10 mg rectal suppository See Instructions, INSERT 1 SUPP (10MG) INTO RECTUM NEEDED IF MILK OF MAGNESIA INEFFECTIVE AFTER 8 HRS/BISAC- EVAC EQUIVALENT/ IF SUPPOSITORY INEFFECTIVE AF, # 7 supp, 11 Refills, Acute, [facility], 162.56, cm, 02/24/20 9:30:00 EDT, Height Start Date: 03/30/20 Status: Ordered Blood Pressure Monitor See Instructions, 1, 0, 0, 06/11/07 11:11:37, PRN, HTN, ADS OPPTHS, [facility] [id number] [place] [phone] Start Date: 06/11/07 Status: Ordered calcium carbonate 500 mg (200 mg elemental calcium) oral tablet, chewable 500 mg, 1, tablet, By Mouth, 3 times a day, PER DR CRANE, # 90 tablet, Refills 3, Tot. Refills 3, Maintenance, 12/03/20 14:35:00 EST, Route to Pharmacy Electronically, [facility], 162.56, cm, 02/24/20 9:30:00 EDT, Height Start Date: 12/03/20 Stop Date: 04/02/21 Status: Ordered citalopram 10 mg oral tablet 10 mg, 1, tablet, By Mouth, Daily, # 30 tablet, Refills 0, Maintenance, 02/12/19 10:28:32 EDT Start Date: 02/12/19 Status: Ordered Dentagel 1.1% topical gel See Instructions, USE 1/4 INCH OF GEL TO BRUSH TEETH DAILY IN THE EVENING / BRUSH THOROUGHLY ALONG GUMLINE, # 56 Gm, 11 Refills, Maintenance, 08/07/20 11:11:00 EST, [facility], 30, USE 1/4 INCH OF GEL TO BRUSH TEETH DAILY IN THE EVENING / BRUSH T... Start Date: 08/07/20 Status: Ordered docusate sodium 100 mg oral capsule 1 capsule, By Mouth, 2 times a day, # 60 capsule, 5 Refills, Maintenance, 07/30/20 15:26:00 EST, [facility], 162.56, cm, 02/24/20 9:30:00 EDT, Height Start Date: 07/30/20 Status: Ordered EARWAX TREATMENT DROPS 6.5% EARWAX TREATMENT DROPS 6.5%, See Instructions, # 1 each, Refills 11, Tot. Refills 11, Maintenance, USE DIRECTED FAX [phone], 12/02/20 14:40:00 EST, [facility];, [facility], 162.56, cm, 02/24/20 9:30:00 EDT, Height Start Date: 12/02/20 Status: Ordered Milk of Magnesia 8% oral suspension See Instructions, TAKE 2 TABLESPOONFULS (30 ML) BY MOUTH AT BEDTIME NEEDED FOR CONSTIPATION ON DAY 3 OF NO BM / SEE BISCOLAX SUPP ORDER 30ML=2,400MG, # 300 mL, 5 Refills, Acute, [facility], 162.56, cm, 02/24/20 9:30:00 EDT, Height Start Date: 2/5/21 Status: Ordered MILLITRIUM TABLET See Instructions, 30, 11, 11, 06/20/08 13:07:29, TAKE 1 TABLET BY MOUTH DAILY (VITAMIN), [address] [address], Constant Indicator, MILLITRIUM TABLET Start Date: 06/20/08 [...] bid prn nasal dryness PER [facility]WIT [facility] PROCESSING MGR-C FAX [phone], 11/02/18 14:15:30 EST, Compound Start Date: 11/02/18 Status: Ordered Ocuflox 0.3% solution 2 drops, Eyes, Both, 4 times a day, # 10 mL, 0 Refills, Maintenance, 01/10/17 14:21:09, Ophth Solution, 2 drops Eyes, Both 4 times a day Start Date: 01/10/17 Status: Ordered Polysporin 500 u-37224 u/gm ointment See Instructions, APPLY A THIN LAYER TOPICALLY TWICE DAILY NEEDED TO RED, IRRITATED SKIN X 7 DAYS / SEE ANCILLARY ORDERS (BACITRACIN-POLYMYXIN OINTMENT), # 28.3 Gm, 5 Refills, Acute, [facility], 7, APPLY A THIN LAYER TOPICALLY TWICE DAILY N... Start Date: 03/30/20 Status: Ordered Polysporin 500 u-16126 u/gm ointment See Instructions, APPLY A THIN [...] tablet, 1 Refills, Maintenance, 09/08/20 10:55:00 EST, [facility], 162.56, cm, 02/24/20 9:30:00 EDT, Height [...] MG Q6H PRN PER DR CRANE FAX [phone], 02/01/19 9:46:36 EDT, Compound Start Date: 02/01/19 Status: Ordered Suphedrin 30 mg oral tablet See Instructions, TAKE 1 TAB (30 MG) BY MOUTH EVERY 6 HRS NEEDED FOR NASAL CONGESTION/ SEE ANCILLARY ORDERS (SUDOGEST EQUIVALENT), # 30 tablet, 11 Refills, Acute, [facility], 162.56, cm, 02/24/20 9:30:00 EDT, Height Start Date: 05/22/20 Status: Ordered THERA CAPLETS THERA CAPLETS, See Instructions, # 30 each, Refills 5, Tot. Refills 5, Maintenance, TAKE ONE CAPLETBY MOUTH QD PER DR CRANE FAX [phone], 10/08/20 11:48:00 EST, Compound, 162.56, cm, 02/24/20 9:30:00 EDT, Height Start Date: 10/08/20 Status: Ordered Tinactin 1% spray 1 sprays, Topically, 2 times a day, # 120 mL, 1 Refills, Maintenance, 12/01/20 8:15:00 EST, [place], [facility], 1 sprays Topically 2 times a day, 162.56, cm, 02/24/20 9:30:00 EDT, Height Start Date: 12/01/20 Status: Ordered TUSSIN DM TUSSIN DM, See Instructions, # 420 mL, Refills 1, Tot. Refills 1, Maintenance, 10 ML PO Q4H PRN FORCOUGH AT BEDTIME PER DR CRANE FAX [phone], 05/22/20 8:48:00 EDT, Compound, 162.56, cm, 02/24/20 9:30:00 EDT, Height Start Date: 05/22/20 Status: Ordered Tylenol 325 mg oral tablet 650 mg, 2, tablet, By Mouth, Every 4 hours, PER DR CRANE, # 168 tablet, Refills 5, Tot. Refills 5, Maintenance, 10/04/19 10:27:00 EST, Route to Pharmacy Electronically, [facility], 162.56, cm, 02/12/19 10:36:00 EDT, Height [...] Active Underweight(Confirmed) Active Vitamin D deficiency(Confirmed) Active 75501; repeat 2020 2colo 2005 nl, repeat 2015 3Colonoscopy 2016 positive polyp, repeat 2020. 4colo 2015 Social History Social History Type Response Smoking Status Never smoker entered on: 02/01/16 Sex
--- OUTSIDE RECORDS SUMMARY | 2024-04-02 09:39 | XMS_ITS | Continuity of Care Document ---
Author Organization [facility] Address [address] [place] [address]- Care Team Providers Care System Technologist Name Role Phone Schuyler Crane MD Primary Care Physician [phone] Encounter [facility] [place] R [id number] Date(s): 02/08/24 - 02/15/24 [facility] [address] [place] [address]- Encounter Diagnosis Left ankle pain(Discharge Diagnosis) - 02/08/24 Attending Physician: Teresa Jama MD Referring Physician: Schuyler Crane MD Allergies, Adverse Reactions, [...] Adult (oldterm) 08/25/04 G iven 1Result Comment: Td - [facility]# [id number] 2Result Comment: PCV23 - [facility]# [id number] 3Result Comment: [facility]# [id number] 4Result Comment: [10/28/2016] pharmacy 5Admin Note: given [...] 10/14/22 8:03:00 EST, Route to Pharmacy Electronically, [facility], 162.56, cm, 07/04/22 8:33:00 EDT, Height Start Date: 10/14/22 Status: Ordered acetaminophen 325 mg oral tablet 2, tablet, By Mouth, 2 times a day, PRN, # 20 tablet, Refills 0, Tot. Refills 0, Maintenance, NEEDED, 12/12/23 11:09:00 EDT, Route to Pharmacy Electronically, [facility], 162.56, cm, 12/11/2409:47:00 EDT, Height Start Date: 12/12/23 Stop Date: 12/17/23 Status: Ordered All Day Allergy 10 mg oral tablet 1 tablet, By Mouth, Daily in AM, FOR SEASONAL ALLERGIES FROM DECEMBER THROUGH JUNE (START 12/24 / ) SEE ANCILLARY ORDERS., # 30 tablet, 11 Refills, Maintenance, 12/21/23 7:45:00 EDT, [facility], 162.56, cm, 12/12/23 10:47:00 EDT, Height Start Date: 12/21/23 Status: Ordered amLODIPine 10 mg oral tablet 1 tablet, By Mouth, Daily in AM, FOR HYPERTENSION., # 30 tablet, 5 Refills, Maintenance, 10/25/23 0:22:00 EST, [facility], 162.56, cm, 10/03/23 9:00:00 EST, Height Start Date: 10/25/23 Status: Ordered ANTACID 500 MG CHEWABLE TAB ANTACID 500 MG CHEWABLE TAB, See Instructions, # 90 each, Refills 3, Tot. Refills 3, Maintenance, TAKE 1 TABLET PO TID FOR OSTEOPOROSIS. MAY CRUSH TABLET PER DR ROSA MARIA CRUZ [phone], 07/20/18 12:11:49EDT, Compound Start Date: 07/20/18 Status: Ordered benzonatate 100 mg oral capsule 1 capsule, By Mouth, 3 times a day, PRN NEEDED FOR COUGH / IF NO IMPROVEMENT IN 3 DAYS NOTIFY / ICJAGRUTI, # 21 capsule, 0 Refills, Maintenance, 10/05/23 12:01:00 EST, [facility], 162.56, cm, 10/03/23 9:00:00 EST, Height Start Date: 10/05/23 Status: Ordered bisacodyl 10 mg rectal suppository See Instructions, INSERT 1 SUPP (10MG) INTO RECTUM NEEDED IF MILK OF MAGNESIA INEFFECTIVE AFTER 8 HRS/BISAC- EVAC EQUIVALENT/ IF SUPPOSITORY INEFFECTIVE AFTER 4 HRS CALL MD, # 7 supp, 11 Refills, Acute, [facility], 162.56, cm, 02/25/21 9:29:00... Start Date: 04/15/21 Status: Ordered Blood Pressure Monitor See Instructions, 1, 0, 0, 06/11/07 11:11:37, PRN, HTN, ADS OPPTHS, [facility] [place] [id number] Start Date: 06/11/07 Status: Ordered calcium carbonate 500 mg (200 mg elemental calcium) oral tablet, chewable 1, tablet, By Mouth, 3 times a day, CRUSH. IC: CALCIUM CARBONATE, # 90 tablet, Refills 5, Maintenance, 10/02/23 8:50:00 EST, Route to Pharmacy Electronically, [facility], 162.56, cm, 09/19/23 10:28:00 EST, Height Start Date: 10/02/23 Status: Ordered carbamide peroxide 6.5% otic solution See Instructions, INSTILL 4 DROPS INTO EACH EAR TWICE DAILY FOR 5 DAYS EACH MONTH / IC: CARBAMIDE PEROXIDE (EAR DROPS 6.5%), # 15 mL, 11 Refills, Maintenance, 09/01/23 9:17:00 EST, [facility], 30, INSTILL 4 DROPS INTO EACH [...] capsule, 5 Refills, Maintenance, 11/23/23 20:00:00 EST, [facility], 162.56, cm, 10/03/23 9:00:00 EST, Height Start Date: 11/23/23 Status: Ordered EARWAX TREATMENT DROPS 6.5% EARWAX TREATMENT DROPS 6.5%, See Instructions, # 1 each, Refills 11, Tot. Refills 11, Maintenance, USE DIRECTED FAX [phone], 12/02/20 14:40:00 EST, [facility], 162.56, cm, 02/24/20 9:30:00 EDT, Height Start Date: 12/02/20 Status: Ordered fluoride 1.1% topical gel See Instructions, USE 1/4 INCH OF GEL TO BRUSH TEETH DAILY IN THE EVENING / BRUSH THOROUGHLY ALONG GUMLINE IC: DENTAGEL, # 56 Gm, 11 Refills, Maintenance, 09/21/23 16:44:00 EST, [facility], 30, USE 1/4 INCH OF GEL TO BRUSH TEETH DAILY IN THE EVEN... Start Date: 09/21/23 Status: Ordered Carolyn-jag 8.6 mg oral tablet 1 tablet, By Mouth, Daily in PM, FOR CONSTIPATION / SEE MILK OF MAG ORDERS / IC: SENNA 8.6 MG, # 15tablet, 6 Refills, Maintenance, 10/14/22 8:03:00 EST, [facility], 162.56, cm, 07/04/22 8:33:00EDT, Height Start Date: 10/14/22 Status: Ordered Hospital Bed See Instructions, # 1 each, Refills 0, Tot. Refills 0, Maintenance, Electric Hospital Bed DX: Left hip fracture, seizure dis, impulse control disorder, atypical autism. Duration ongoing NPI#[id number] Height: 5'6 Weight: 137lbs, 03/22/23 13:55:... Start Date: 03/22/23 Status: Ordered ibuprofen 600 mg oral tablet 600 mg, 1, tablet, By Mouth, Every 8 hours, PRN for pain, # 30 tablet, Refills 0, Tot. Refills 0, Maintenance, 02/08/24 12:44:00 EDT, Route to Pharmacy Electronically, [facility], Partial fill upon patient request if the prescription is for a adeline... Start Date: 02/08/24 Status: Ordered Milk of Magnesia 8% oral suspension See Instructions, TAKE 2 TABLESPOONFULS (30 ML) BY MOUTH AT BEDTIME NEEDED FOR CONSTIPATION ON DAY 3 OF NO BM / SEE BISCOLAX SUPP ORDER 30ML=2,400MG, # 300 mL, 5 Refills, Acute, [facility], 162.56, cm, 02/24/20 9:30:00 EDT, Height Start Date: 10/30/20 Status: Ordered MILLITRIUM TABLET See Instructions, 30, 11, 11, 06/20/08 13:07:29, TAKE 1 TABLET BY MOUTH DAILY (VITAMIN), [facility] [address] [place] [address], Constant Indicator, MILLITRIUM TABLET Start Date: 06/20/08 [...] tablet, 0 Refills, Maintenance, 10/03/23 8:50:00 EST, [facility], Partial fill upon patient request if the prescription... Start Date: 10/03/23 Status: Ordered Polysporin 500 u-14952 u/gm ointment See Instructions, APPLY A THIN LAYER TOPICALLY TWICE DAILY NEEDED TO RED, IRRITATED SKIN X 7 DAYS / SEE ANCILLARY ORDERS (BACITRACIN-POLYMYXIN OINTMENT), # 28.3 Gm, 5 Refills, Maintenance, 04/18/23 8:59:00 EDT, [facility], 7, APPLY A THIN LAYE... Start Date: 04/18/23 Status: Ordered pravastatin 40 mg oral tablet 1 tablet, By Mouth, Daily, IN PM FOR HYPERLIPIDEMIA., # 30 tablet, 5 Refills, Maintenance, 248:50:00 EST, [facility], 162.56, cm, 09/19/23 10:28:00 EST, Height Start Date: 10/02/23 Status: Ordered Profola oral tablet 1 tablet, By Mouth, Daily, # 30 tablet, 11 Refills, Maintenance, 05/19/23 10:41:00 EDT, [facility], Partial fill upon patient request if [...] tablet, 11 Refills, Maintenance, 10/26/23 8:49:00 EST, [facility], 162.56, cm, 10/03/23 9:00:00 EST, Height Start Date: 10/26/23 Status: Ordered SUDOGEST 30 MG TABLETS SUDOGEST 30 MG TABLETS, See Instructions, # 30 each, Refills 11, Tot. Refills 11, Maintenance, TAKE30 MG Q6H PRN PER DR CRANE FAX [phone], 02/01/19 9:46:36 EDT, Compound Start Date: 02/01/19 Status: Ordered Thera oral tablet 1 tablet, By Mouth, Daily in AM, VITAMIN., # 30 tablet, 5 Refills, Maintenance, 10/25/23 10:03:00 EST, [facility], 30, TAKE 1 TABLET BY MOUTH [...] mL, 1 Refills, Maintenance, 12/01/20 8:15:00 EST, [place], [facility], 1 sprays Topically 2 times a day, 162.56, cm, 02/24/20 9:30:00 EDT, Height Start Date: 12/01/20 Status: Ordered TUSSIN DM TUSSIN DM, See Instructions, # 420 mL, Refills 1, Tot. Refills 1, Maintenance, 10 ML PO Q4H PRN FORCOUGH AT BEDTIME PER DR CRANE FAX [phone], 05/22/20 8:48:00 EDT, [facility], 162.56, cm, 02/24/20 [...] Confirmed Active Vitamin D deficiency Confirmed Active 40244; repeat 2020 2colo 2006 nl, repeat 2015 3Colonoscopy 2015 positive polyp, repeat 2020. 4colo 2015 Diagnosis Diagnosis Type Effective Dates Health Status Cl inical Service Informant Left ankle pain Discharge Diagnosis 02/08/24 Vital Signs Most recent to oldest [Reference Range]: 1 Height 162.56 cm (02/08/24 12:05 PM) Oxygen Saturation [94-100 %] 100 % (02/08/24 12:05 PM) Pulse Rate [55-90 bpm] 87 bpm (02/08/24 12:05 PM) Blood Pressure [90-138/55-84 mm Hg] 143/ 47mm Hg *H* (02/08/24 12:05 PM) Respiratory Rate [16-30 br/min] 20 br/mi n (02/08/24 12:05 PM) Temperature [96.8-100.4 DegF] 97 DegF (02/08/24 12:05 PM) Mode of Delivery (Oxygen) Room air (02/08/24 12:05 PM) Blood pressure sites Arm, right (02/08/24 12:05 PM) Temperature Route Temporal (02/08/24 12:05 PM) Social History Social History Type Response Smoking Status Never smoker entered on: 02/01/16 Sex Note * Hugh Harris RN: PERFORM Event Display: Patient Education/Instruction Authored Date: Ambulatory Adult Visit Summary [facility] [address] [address] Name: ISAK FERRARO : 1955?? Visit: 02/08/2024 11:09?? Ambulatory Visit Instructions ?? Your Care Team Primary Care Provider Schuyler Crane MD? This Visit Provider [facility] [place] Your Diagnosis Left ankle pain Vitals Signs Temperature: 97 DegF Height: 162.56 cm Pulse Rate: 87 bpm ?? Respiratory Rate: 20 br/min ?? Systolic Blood Pressure:??143 mm Hg??High ?? Diastolic Blood Pressure:??47 mm Hg??Low ?? Oxygen Saturation: 100 % ?? What to do next Scheduled Follow-Up Appointments January. 2023 11:30 AM EDT ?? With: Monty Stafford DO Where: [address] [address]- Status: Pending Medications The list below reflects the information in our records and provided by you today along with any changes made during this visit. Please continue your medications until treatment is completed or stopped by your provider. If this is different from the information you have or there are other questions,please contact the prescribing provider. What How Much When Why Instructions New Ibuprofen (ibuprofen 600 mg oral tablet) 1 tab(s) Oral Every 8 hours Left ankle pain PRN for pain ?? Pickup at [facility] Unchanged Acetaminophen (acetaminophen 325 mg oral tablet) 2 tab(s) Oral Twice a day as needed for NEEDED Duration: 5 Days Contact prescribing physician if questions or concerns ?? Unchanged Acetaminophen (acetaminophen 325 mg oral tablet) 2 tab(s) Oral Every 4 hours as needed for NEEDED SEE MD ORDERS) (MAPAP. Contact prescribing physician if questions or concerns ?? Unchanged Amlodipine (amLODIPine 10 mg oral tablet) 1 tab(s) Oral Daily in the morning FOR HYPERTENSION. Contact prescribing physician if questions or concerns ?? Unchanged Bacitracin-Polymyxin B Topical (Polysporin 500 u-95098 u/ gm ointment) See instructions APPLY A THIN LAYER TOPICALLY TWICE DAILY NEEDED TO RED, IRRITATED SKIN X 7 DAYS / ??SEE ANCILLARY ORDERS (BACITRACIN-POLYMYXIN OINTMENT) Contact prescribing physician if questions or concerns ?? Unchanged Benzonatate (benzonatate 100 mg oral capsule) 1 capsule Oral 3 times a day as needed for NEEDED FOR COUGH / IF NO IMPROVEMENT IN 3 DAYS NOTIFY MD / DANNA CHAND Contact prescribing physician if questions or concerns ?? Unchanged Bisacodyl (bisacodyl 10 mg rectal suppository) See instructions INSERT 1 SUPP (10MG) INTO RECTUM NEEDED IF MILK OF MAGNESIA INEFFECTIVE AFTER 8 HRS/ BISAC- EVACEQUIVALENT/ ??IF SUPPOSITORY INEFFECTIVE AFTER 4 HRS CALL MD Contact prescribing physician if questions or concerns ?? Unchanged Calcium Carbonate (calcium carbonate 500 mg (200 mg elemental calcium) oral tablet, chewable) 1 tab(s) Oral 3 times a day CRUSH. IC: CALCIUM CARBONATE Contact prescribing physician if questions or concerns ?? Unchanged Carbamide Peroxide Otic (carbamide peroxide 6.5% otic solution) See instructions INSTILL 4 DROPS INTO EACH EAR TWICE DAILY FOR 5 DAYS EACH MONTH / ??IC: CARBAMIDE PEROXIDE (EAR DROPS 6.5%) Contact prescribing physician if questions or concerns ?? Unchanged Cetirizine (All Day Allergy 10 mg oral tablet) 1 tab(s) Oral Daily in the morning FOR SEASONAL ALLERGIES FROM DECEMBER THROUGH JUNE (START 12/24 / ??END ) SEE ANCILLARY ORDERS. Contact prescribing physician if questions or concerns ?? Unchanged Cholecalciferol (Vitamin D3 2000 intl units oral tablet) 1 tab(s) Oral Daily PER DR CRANE Contact prescribing physician if questions or concerns ?? Unchanged Citalopram (citalopram 10 mg oral tablet) 1 tab(s) Oral Daily Contact prescribing physician if questions or concerns ?? Unchanged Docusate (docusate sodium 100 mg oral capsule) See instructions TAKE 1 CAPSULE (100 MG) BY MOUTH TWICE DAILY FOR CONSTIPATION (DOCUSATE SODIUM 100 MG) Contact prescribing physician if questions or concerns ?? Unchanged Durable Medical Equipment (ABD Pads (6X9)) See instructions INSTILL 4 DROPS INTO EACH EAR TWICE DAILY FOR 5 DAYS EACH MONTH / ??IC: CARBAMIDE PEROXIDE (EAR DROPS 6.5%) Contact prescribing physician if questions or concerns ?? Unchanged Durable Medical Equipment (Blood Pressure Monitor) See Instructions HTN PRN Contact prescribing physician if questions or concerns ?? Unchanged Durable Medical Equipment (Hospital Bed) See instructions Electric Hospital Bed DX: Left hip fracture, seizure dis, impulse control disorder, atypical autism. Duration ongoing ??NPI#[id number] Height: 5'6 ??Weight: 137lbs Contact prescribing physician if questions or concerns ?? Unchanged Fluoride Topical (fluoride 1.1% topical gel) See instructions USE 1/ 4 INCH OF GEL TO BRUSH TEETH DAILY IN THE EVENING / ??BRUSH THOROUGHLY ALONG GUMLINE IC: DENTAGEL Contact prescribing physician if questions or concerns ?? Unchanged Milk of Magnesia (Milk of Magnesia 8% oral suspension) See instructions TAKE 2 TABLESPOONFULS (30 ML) BY MOUTH AT BEDTIME NEEDED FOR CONSTIPATION ON DAY 3 OF NO BM / ??SEE BISCOLAX SUPP ORDER 30ML=2,400MG Contact prescribing physician if questions or concerns ?? Unchanged Miscellaneous Medication (MILLITRIUM TABLET) See Instructions TAKE 1 TABLET BY MOUTH DAILY (VITAMIN) Contact prescribing physician if questions or concerns ?? Unchanged Miscellaneous Rx (ANTACID 500 MG CHEWABLE TAB) See instructions TAKE 1 TABLET PO TID FOR OSTEOPOROSIS. MAY CRUSH TABLET PER DR CRANE FX [phone] Contact prescribing physician if questions or concerns ?? Unchanged Miscellaneous Rx (EARWAX TREATMENT DROPS 6.5%) See instructions USE DIRECTED FAX [phone] Contact prescribing physician if questions or concerns ?? Unchanged Miscellaneous Rx (OCEAN SALINE NASAL MIST) See instructions use bid prn nasal dryness Contact prescribing physician if questions or concerns ?? Unchanged Miscellaneous Rx (SUDOGEST 30 MG TABLETS) See instructions TAKE 30 MG Q6H PRN PER DR CRNAE FAX [phone] Contact prescribing physician if questions or concerns ?? Unchanged Miscellaneous Rx (TINACTIN 1% AEROSOL POWDER 1 Aerosol) 2 spray(s) Topically Twice a day as needed for NEEDED FOR Contact prescribing physician if questions or concerns ?? Unchanged Miscellaneous Rx (TUSSIN DM) See instructions 10 ML PO Q4H PRN FOR COUGH AT BEDTIME PER DR CRANE FAX [phone] Contact prescribing physician if questions or concerns ?? Unchanged Multivitamin (Thera oral tablet) 1 tab(s) Oral Daily in the morning VITAMIN. Contact prescribing physician if questions or concerns ?? Unchanged Multivitamin With Minerals (Profola oral tablet) 1 tab(s) Oral Daily Duration: 30 Days Contact prescribing physician if questions or concerns ?? Unchanged nirmatrelvir-ritonavir (Paxlovid 150 mg-100 mg (150 mg-100 mg Dose) oral tablet) See instructions COVID-19 Take 3 tablets twice a day by mouth for 5 days.300 mg nirmatrelvir plus 100 mg ritonavir. Normal dose Contact prescribing physician if questions or concerns ?? Unchanged Pravastatin (pravastatin 40 mg oral tablet) 1 tab(s) Oral Daily IN PM FOR HYPERLIPIDEMIA. Contact prescribing physician if questions or concerns ?? Unchanged Pseudoephedrine (SudoGest 30 mg oral tablet) See instructions TAKE 1 TAB (30 MG) BY MOUTH EVERY 6 HRS NEEDED FOR NASAL CONGESTION/ ??SEE ANCILLARY ORDERS (SUPHEDRIN EQUIVALENT) Contact prescribing physician if questions or concerns ?? Unchanged Risperidone (RisperDAL 0.25 mg oral tablet) 1 tab(s) Oral Twice a day as needed for Other 1 tablet by mouth prior to ophthalmology appointment followed by another tablet. Contact prescribing physician if questions or concerns ?? Unchanged Risperidone (RisperDAL 0.5 mg oral tablet) See instructions 1 tablet By Mouth prior to doctor appointments. Contact prescribing physician if questions or concerns ?? Unchanged Risperidone (RisperDAL 1 mg oral tablet) 1 tab(s) Oral Twice a day Contact prescribing physician if questions or concerns ?? Unchanged Senna (Carolyn-jag 8.6 mg oral tablet) 1 tab(s) Oral Daily in PM FOR CONSTIPATION / ??SEE MILK OF MAG ORDERS / ??IC: SENNA 8.6 MG Contact prescribing physician if questions or concerns ?? Unchanged Tolnaftate Topical (Tinactin 1% spray) 1 spray(s) Topically Twice a day Contact prescribing physician if questions or concerns ?? Unchanged Zoster Vaccine Live (Zostavax subcutaneous injection) 0.65 Milliliter Subcutaneous Infusion Once Contact prescribing physician if questions or concerns ?? [facility] Information [facility] Pharmacy: [address] [place] [address] [phone] Medications and Immunizations Administered Medications Given During Visit No medications given during this visit.?? Allergies (NKA means No Known Allergies) Ativan Klonopin Wafer amoxicillin benzodiazepines cephalosporins penicillins Education Materials Below is the list of Educational Leaflet Providered with your Visit summary. [employer] Patient Education - Ankle Arthritis and Replacement?? Common Emergency Awareness Tips IS IT A STROKE? Act FAST and Check for these signs: FACE Does the face look uneven? ARM Does one arm drift down? SPEECH Does their speech sound strange? TIME Call at any sign of stroke ?? Heart Attack Signs Chest discomfort: Most heart attacks involve discomfort in the center of the chest and lasts more than a few minutes, or goes away and comes back. It can feel like uncomfortable pressure, squeezing, fullness or pain. Discomfort in upper body: Symptoms can include pain or discomfort in one or both arms, back, neck, jaw or stomach. Shortness of breath: With or without discomfort. Other signs: Breaking out in a cold sweat, nausea, or lightheaded. Remember, MINUTES DO MATTER. If you experience any of these heart attack warning signs, call to get immediate medical attention! ?? Smoking can increase your chances of developing chronic health problems and can cause harmful effects to other family members in your house. If you smoke, you are strongly encouraged to quit. Please call [employer] [facility] at [phone] or [phone] ([phone]) or log in to [email or web address] for referrals to smoking cessation programs. ?? The National Suicide Prevention Hotline is available 17/04 if you or someone you know needs to find a reason to keep living. By calling 6-101-127-Epivios (9220) you'll be connected to a skilled, trained counselor at a crisis center in your area. [facility] Portal You can view and manage your care through the patient portal or by using a health care guy of your choosing. [employer] is a website that allows you to securely view your medical information including your hospital discharge summary, office visit summaries, medications and follow-up visits. You can also request appointments, renew medications, and request access to your medical information using a health care guy of your choosing, or just ask a question. You can enroll at [email or web address] or register during your next office visit. [facility], in keeping with [facility] guidance, no longer requires face masks for staff, patientsor visitors in most situations. Similiar to time spent indoors at other locations, there is the chance that you were exposed to repiratory viruses during your time with us (such as flu or COVID-19). If you develop symptoms concerning for a viral respiratory infection, please seek testing (and treatment if indicated) from your medical provider or home test kit. ?? Disclaimer: The information provided is of a general nature and is intended to be used in conjunction with the recommendations and advice of your health care practitioner. Every effort has been made to ensure that the information provided is accurate and complete at the time it is provided to you however, as your needs change, or, as new information becomes available, different or additional instructions may be required. ?? If you have questions, please consult with your primary care provider or pharmacist, as appropriate. This information is not intended to serve as substitution for assessment and evaluation by a qualified health care provider. If you do not have a primary care provider, you may find a [facility] provider by calling [facility] [employer] [facility] at [phone]. * Keke Hernandez: PERFORM Event Display: Patient Education Leaflets Authored Date: [id number] Ankle Arthritis and Replacement ?? Ankle Arthritis and Replacement - Video The most common form of arthritis affecting the ankle is osteoarthritis. It can be caused by injuryor by long-term wear and tear. Take a look at this condition and how it is treated, including surgery to replace the ankle joint. To view the video go to this web address: https://bit.Linkyt/[email or web address] Or, scan this QR code with your smart phone Last Reviewed Date: 2021 ?? 1229-3704 [employer]. All rights reserved. This information is not intended as a substitute for professional medical care. Always follow your healthcare professional's instructions. ?? Patient Care team information Care Team Personnel Name: Schuyler Crane MD Position: S Physician - Primary Care Member Role: PCP Address: Address: [address] [place] [address] [place] [address]- Care Team Related Persons Name: ELLE ALMEIDA Address: home [address] [place] [address] Name: ZAK SHELL
--- OUTSIDE RECORDS SUMMARY | 2024-04-02 09:39 | XMS_ITS | Continuity of Care Document ---
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 Role Phone Schuyler Crane MD Primary Care Physician [phone] [facility]24 - 02/28/24 [facility] Adult [address] [place] [address]- Allergies, Adverse Reactions, Alerts Substance Reaction Severity [...] G cristy 1Result Comment: Td - [facility]# [id number] 2Result Comment: PCV23 - [facility]# [id number] 3Result Comment: [facility]# [id number] 4Result Comment: [10/28/2016] pharmacy 5Admin Note: given [...] 10/14/22 8:03:00 EST, Route to Pharmacy Electronically, [facility], 162.56, cm, 07/04/22 8:33:00 EDT, Height Start Date: 10/14/22 Status: Ordered acetaminophen 325 mg oral tablet 2, tablet, By Mouth, 2 times a day, PRN, # 20 tablet, Refills 0, Tot. Refills 0, Maintenance, NEEDED, 12/12/23 11:09:00 EDT, Route to Pharmacy Electronically, [facility], 162.56, cm, 12/11/2409:47:00 EDT, Height Start Date: 12/12/23 Stop Date: 12/17/23 Status: Ordered All Day Allergy 10 mg oral tablet 1 tablet, By Mouth, Daily in AM, FOR SEASONAL ALLERGIES FROM DECEMBER THROUGH JUNE (START 12/24 / ) SEE ANCILLARY ORDERS., # 30 tablet, 11 Refills, Maintenance, 12/21/23 7:45:00 EDT, [facility], 162.56, cm, 12/12/23 10:47:00 EDT, Height Start Date: 12/21/23 Status: Ordered amLODIPine 10 mg oral tablet 1 tablet, By Mouth, Daily in AM, FOR HYPERTENSION., # 30 tablet, 5 Refills, Maintenance, 10/25/23 0:22:00 EST, [facility], 162.56, cm, 10/03/23 9:00:00 EST, Height Start Date: 10/25/23 Status: Ordered ANTACID 500 MG CHEWABLE TAB ANTACID 500 MG CHEWABLE TAB, See Instructions, # 90 each, Refills 3, Tot. Refills 3, Maintenance, TAKE 1 TABLET PO TID FOR OSTEOPOROSIS. MAY CRUSH TABLET PER DR ROSA MARIA CRUZ [phone], 07/20/18 12:11:49EDT, Compound Start Date: 07/20/18 Status: Ordered benzonatate 100 mg oral capsule 1 capsule, By Mouth, 3 times a day, PRN NEEDED FOR COUGH / IF NO IMPROVEMENT IN 3 DAYS NOTIFY MD/ IC, JAGRUTI, # 21 capsule, 0 Refills, Maintenance, 10/05/23 12:01:00 EST, [facility], 162.56, cm, 10/03/23 9:00:00 EST, Height Start Date: 10/05/23 Status: Ordered bisacodyl 10 mg rectal suppository See Instructions, INSERT 1 SUPP (10MG) INTO RECTUM NEEDED IF MILK OF MAGNESIA INEFFECTIVE AFTER 8 HRS/BISAC- EVAC EQUIVALENT/ IF SUPPOSITORY INEFFECTIVE AFTER 4 HRS CALL MD, # 7 supp, 11 Refills, Acute, [facility], 162.56, cm, 02/25/21 9:29:00... Start Date: 04/15/21 Status: Ordered Blood Pressure Monitor See Instructions, 1, 0, 0, 06/11/07 11:11:37, PRN, HTN, ADS OPPTHS, [facility] [address] [place] [address] Start Date: 06/11/07 Status: Ordered calcium carbonate 500 mg (200 mg elemental calcium) oral tablet, chewable 1, tablet, By Mouth, 3 times a day, CRUSH. IC: CALCIUM CARBONATE, # 90 tablet, Refills 5, Maintenance, 10/02/23 8:50:00 EST, Route to Pharmacy Electronically, [facility], 162.56, cm, 09/19/23 10:28:00 EST, Height Start Date: 10/02/23 Status: Ordered carbamide peroxide 6.5% otic solution See Instructions, INSTILL 4 DROPS INTO EACH EAR TWICE DAILY FOR 5 DAYS EACH MONTH / IC: CARBAMIDE PEROXIDE (EAR DROPS 6.5%), # 15 mL, 11 Refills, Maintenance, 09/01/23 9:17:00 EST, [facility], 30, INSTILL 4 DROPS INTO EACH [...] capsule, 5 Refills, Maintenance, 11/23/23 20:00:00 EST, [facility], 162.56, cm, 10/03/23 9:00:00 EST, Height Start Date: 11/23/23 Status: Ordered EARWAX TREATMENT DROPS 6.5% EARWAX TREATMENT DROPS 6.5%, See Instructions, # 1 each, Refills 11, Tot. Refills 11, Maintenance, USE DIRECTED FAX [phone], 12/02/20 14:40:00 EST, [facility], 162.56, cm, 02/24/20 9:30:00 EDT, Height Start Date: 12/02/20 Status: Ordered fluoride 1.1% topical gel See Instructions, USE 1/4 INCH OF GEL TO BRUSH TEETH DAILY IN THE EVENING / BRUSH THOROUGHLY ALONG GUMLINE IC: DENTAGEL, # 56 Gm, 11 Refills, Maintenance, 09/21/23 16:44:00 EST, [facility], 30, USE 1/4 INCH OF GEL TO BRUSH TEETH DAILY IN THE EVEN... Start Date: 09/21/23 Status: Ordered Carolyn-jag 8.6 mg oral tablet 1 tablet, By Mouth, Daily in PM, FOR CONSTIPATION / SEE MILK OF MAG ORDERS / IC: SENNA 8.6 MG, # 15tablet, 6 Refills, Maintenance, 10/14/22 8:03:00 EST, [facility], 162.56, cm, 07/04/22 8:33:00EDT, Height Start Date: 10/14/22 Status: Ordered Hospital Bed See Instructions, # 1 each, Refills 0, Tot. Refills 0, Maintenance, [facility] Hospital Bed DX: Left hip fracture, seizure dis, impulse control disorder, atypical autism. Duration ongoing NPI#[id number] Height: 5'6 Weight: 137lbs, 03/22/23 13:55:... Start Date: 03/22/23 Status: Ordered ibuprofen 600 mg oral tablet 600 mg, 1, tablet, By Mouth, Every 8 hours, PRN for pain, # 30 tablet, Refills 0, Tot. Refills 0, Maintenance, 02/08/24 12:44:00 EDT, Route to Pharmacy Electronically, [facility], Partial fill upon patient request if the prescription is for a adeline... Start Date: 02/08/24 Status: Ordered Milk of Magnesia 8% oral suspension See Instructions, TAKE 2 TABLESPOONFULS (30 ML) BY MOUTH AT BEDTIME NEEDED FOR CONSTIPATION ON DAY 3 OF NO BM / SEE BISCOLAX SUPP ORDER 30ML=2,400MG, # 300 mL, 5 Refills, Acute, [facility], 162.56, cm, 02/24/20 9:30:00 EDT, Height Start Date: 10/30/20 Status: Ordered MILLITRIUM TABLET See Instructions, 30, 11, 11, 06/20/08 13:07:29, TAKE 1 TABLET BY MOUTH DAILY (VITAMIN), [facility] [address] [place] [address], Constant Indicator, MILLITRIUM TABLET Start Date: 06/20/08 [...] tablet, 0 Refills, Maintenance, 10/03/23 8:50:00 EST, [facility], Partial fill upon patient request if the prescription... Start Date: 10/03/23 Status: Ordered Polysporin 500 u-06526 u/gm ointment See Instructions, APPLY A THIN LAYER TOPICALLY TWICE DAILY NEEDED TO RED, IRRITATED SKIN X 7 DAYS / SEE ANCILLARY ORDERS (BACITRACIN-POLYMYXIN OINTMENT), # 28.3 Gm, 5 Refills, Maintenance, 04/18/23 8:59:00 EDT, [facility], 7, APPLY A THIN LAYE... Start Date: 04/18/23 Status: Ordered pravastatin 40 mg oral tablet 1 tablet, By Mouth, Daily, IN PM FOR HYPERLIPIDEMIA., # 30 tablet, 5 Refills, Maintenance, 248:50:00 EST, [facility], 162.56, cm, 09/19/23 10:28:00 EST, Height Start Date: 10/02/23 Status: Ordered Profola oral tablet 1 tablet, By Mouth, Daily, # 30 tablet, 11 Refills, Maintenance, 05/19/23 10:41:00 EDT, [facility], Partial fill upon patient request if [...] tablet, 11 Refills, Maintenance, 10/26/23 8:49:00 EST, [facility], 162.56, cm, 10/03/23 9:00:00 EST, Height Start Date: 10/26/23 Status: Ordered SUDOGEST 30 MG TABLETS SUDOGEST 30 MG TABLETS, See Instructions, # 30 each, Refills 11, Tot. Refills 11, Maintenance, TAKE30 MG Q6H PRN PER DR CRANE FAX [phone], 02/01/19 9:46:36 EDT, Compound Start Date: 02/01/19 Status: Ordered Thera oral tablet 1 tablet, By Mouth, Daily in AM, VITAMIN., # 30 tablet, 5 Refills, Maintenance, 10/25/23 10:03:00 EST, [facility], 30, TAKE 1 TABLET BY MOUTH [...] mL, 1 Refills, Maintenance, 12/01/20 8:15:00 EST, [place], [facility], 1 sprays Topically 2 times a day, 162.56, cm, 02/24/20 9:30:00 EDT, Height Start Date: 12/01/20 Status: Ordered KAILYNIN KUSHAL FATIMA, See Instructions, # 420 mL, Refills 1, Tot. Refills 1, Maintenance, 10 ML PO Q4H PRN FORCOUGH AT BEDTIME PER DR CRANE FAX [phone], 05/22/20 8:48:00 EDT, [facility], 162.56, cm, 02/24/20 [...] Confirmed Active Vitamin D deficiency Confirmed Active 49131; repeat 2020 2colo 2005 nl, repeat 2015 3Colonoscopy 2016 positive polyp, repeat 2020. 4colo 2015 Social History Social History Type Response Smoking Status Never smoker entered on: 02/01/16 Sex Patient Care team information Care Team Personnel Name: Rosa Maria HUSTON, Schuyler Pope Position: [facility] Physician - Primary Care Member Role: PCP Address: Address: [address] [place] [address]- Care Team Related Persons Name: ELLE ALMEIDA Address: home [address] [place] [address] Name: ZAK SHELL
--- OUTSIDE RECORDS SUMMARY | 2024-04-02 09:39 | XMS_ITS | Continuity of Care Document ---
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 Phone Schuyler Crane MD Primary Care Physician [phone] [facility] 09[facility]23 - 10/21/23 [facility] Adult [address] [place] [address]- Allergies, Adverse Reactions, Alerts Substance Reaction Severity [...] 08/25/04 G cristy 1Result Comment: Td - [facility]# [id number] 2Result Comment: PCV23 - [facility]# [id number] 3Result Comment: [facility]# [id number] 4Result Comment: [10/28/2016] pharmacy 5Admin Note: given [...] 10/14/22 8:03:00 EST, Route to Pharmacy Electronically, [facility], 162.56, cm, 07/04/22 8:33:00 EDT, Height Start Date: 10/14/22 Status: Ordered All Day Allergy 10 mg oral tablet See Instructions, TAKE 1 TABLET (10 MG) BY MOUTH DAILY IN THE AM FOR SEASONAL ALLERGIES FROM DECEMBER THROUGH JUNE (START 12/24 / END 07/25) SEE ANCILLARY ORDERS, # 30 tablet, 2 Refills, Maintenance, 04/13/23 14:33:00 EDT, [facility], 162.56, cm, 0... Start Date: 04/13/23 Status: Ordered amLODIPine 10 mg oral tablet 1 tablet, By Mouth, Daily in AM, FOR HYPERTENSION., # 30 tablet, 5 Refills, Maintenance, 04/19/23 23:11:00 EDT, [facility], 162.56, cm, 04/10/23 7:35:00 EDT, Height Start Date: 04/19/23 Status: Ordered amLODIPine 5 mg oral tablet 5 mg, 1, tablet, By Mouth, Daily, # 7 tablet, Refills 0, Tot. Refills 0, Maintenance, 10/03/23 13:38:00 EST, Route to Pharmacy Electronically, [facility], Partial fill upon patient request if the prescription is for a schedule II opioid drug., 16... Start Date: 10/03/23 Stop Date: 10/10/23 Status: Ordered ANTACID 500 MG CHEWABLE TAB ANTACID 500 MG CHEWABLE TAB, See Instructions, # 90 each, Refills 3, Tot. Refills 3, Maintenance, TAKE 1 TABLET PO TID FOR OSTEOPOROSIS. MAY CRUSH TABLET PER DR ROSA MARIA CRUZ [phone], 07/20/18 12:11:49EDT, Compound Start Date: 07/20/18 Status: Ordered benzonatate 100 mg oral capsule 1 capsule, By Mouth, 3 times a day, PRN NEEDED FOR COUGH / IF NO IMPROVEMENT IN 3 DAYS NOTIFY MD/ ICJAGRUTI, # 21 capsule, 0 Refills, Maintenance, 10/05/23 12:01:00 EST, [facility], 162.56, cm, 10/03/23 9:00:00 EST, Height Start Date: 10/05/23 Status: Ordered bisacodyl 10 mg rectal suppository See Instructions, INSERT 1 SUPP (10MG) INTO RECTUM NEEDED IF MILK OF MAGNESIA INEFFECTIVE AFTER 8 HRS/BISAC- EVAC EQUIVALENT/ IF SUPPOSITORY INEFFECTIVE AFTER 4 HRS CALL MD, # 7 supp, 11 Refills, Acute, [facility], 162.56, cm, 02/25/21 9:29:00... Start Date: 04/15/21 Status: Ordered Blood Pressure Monitor See Instructions, 1, 0, 0, 06/11/07 11:11:37, PRN, HTN, ADS OPPTHS, [facility] [address] [place] [address] Start Date: 06/11/07 Status: Ordered calcium carbonate 500 mg (200 mg elemental calcium) oral tablet, chewable 1, tablet, By Mouth, 3 times a day, CRUSH. IC: CALCIUM CARBONATE, # 90 tablet, Refills 5, Maintenance, 10/02/23 8:50:00 EST, Route to Pharmacy Electronically, [facility], 162.56, cm, 09/19/23 10:28:00 EST, Height Start Date: 10/02/23 Status: Ordered carbamide peroxide 6.5% otic solution See Instructions, INSTILL 4 DROPS INTO EACH EAR TWICE DAILY FOR 5 DAYS EACH MONTH / IC: CARBAMIDE PEROXIDE (EAR DROPS 6.5%), # 15 mL, 11 Refills, Maintenance, 09/01/23 9:17:00 EST, [facility], 30, INSTILL 4 DROPS INTO EACH [...] capsule, 5 Refills, Maintenance, 06/06/23 14:01:00 EDT, [facility], 162.56, cm, 05/15/23 9:41:00 EDT, Height Start Date: 06/06/23 Status: Ordered EARWAX TREATMENT DROPS 6.5% EARWAX TREATMENT DROPS 6.5%, See Instructions, # 1 each, Refills 11, Tot. Refills 11, Maintenance, USE DIRECTED FAX [phone], 12/02/20 14:40:00 EST, [facility], 162.56, cm, 02/24/20 9:30:00 EDT, Height Start Date: 12/02/20 Status: Ordered fluoride 1.1% topical gel See Instructions, USE 1/4 INCH OF GEL TO BRUSH TEETH DAILY IN THE EVENING / BRUSH THOROUGHLY ALONG GUMLINE IC: DENTAGEL, # 56 Gm, 11 Refills, Maintenance, 09/21/23 16:44:00 EST, [facility], 30, USE 1/4 INCH OF GEL TO BRUSH TEETH DAILY IN THE EVEN... Start Date: 09/21/23 Status: Ordered Carolyn-jag 8.6 mg oral tablet 1 tablet, By Mouth, Daily in PM, FOR CONSTIPATION / SEE MILK OF MAG ORDERS / IC: SENNA 8.6 MG, # 15tablet, 6 Refills, Maintenance, 10/14/22 8:03:00 EST, [facility], 162.56, cm, 07/04/22 8:33:00EDT, Height Start Date: 10/14/22 Status: Ordered Hospital Bed See Instructions, # 1 each, Refills 0, Tot. Refills 0, Maintenance, [facility] DX: Left hip fracture, seizure dis, impulse control disorder, atypical autism. Duration ongoing NPI#[id number] Height: 5'6 Weight: 137lbs, 03/22/23 13:55:... Start Date: 03/22/23 Status: Ordered Milk of Magnesia 8% oral suspension See Instructions, TAKE 2 TABLESPOONFULS (30 ML) BY MOUTH AT BEDTIME NEEDED FOR CONSTIPATION ON DAY 3 OF NO BM / SEE BISCOLAX SUPP ORDER 30ML=2,400MG, # 300 mL, 5 Refills, Acute, [facility], 162.56, cm, 02/24/20 9:30:00 EDT, Height Start Date: 10/30/20 Status: Ordered MILLITRIUM TABLET See Instructions, 30, 11, 11, 06/20/08 13:07:29, TAKE 1 TABLET BY MOUTH DAILY (VITAMIN), [facility] [address] [place] [address], Constant Indicator, MILLITRIUM TABLET Start Date: 06/20/08 [...] tablet, 0 Refills, Maintenance, 10/03/23 8:50:00 EST, [facility], Partial fill upon patient request if the prescription... Start Date: 10/03/23 Status: Ordered Polysporin 500 u-84006 u/gm ointment See Instructions, APPLY A THIN LAYER TOPICALLY TWICE DAILY NEEDED TO RED, IRRITATED SKIN X 7 DAYS / SEE ANCILLARY ORDERS (BACITRACIN-POLYMYXIN OINTMENT), # 28.3 Gm, 5 Refills, Maintenance, 04/18/23 8:59:00 EDT, [facility], 7, APPLY A THIN LAYE... Start Date: 04/18/23 Status: Ordered pravastatin 40 mg oral tablet 1 tablet, By Mouth, Daily, IN PM FOR HYPERLIPIDEMIA., # 30 tablet, 5 Refills, Maintenance, 248:50:00 EST, [facility], 162.56, cm, 09/19/23 10:28:00 EST, Height Start Date: 10/02/23 Status: Ordered Profola oral tablet 1 tablet, By Mouth, Daily, # 30 tablet, 11 Refills, Maintenance, 05/19/23 10:41:00 EDT, [facility], Partial fill upon patient request if [...] (SUPHEDRIN EQUIVALENT), # 30 tablet, 11 Refills, [facility], 162.56, cm, 03/24/22 10:31:00 EDT, Height Start Date: 04/22/22 Status: Ordered SUDOGEST 30 MG TABLETS SUDOGEST 30 MG TABLETS, See Instructions, # 30 each, Refills 11, Tot. Refills 11, Maintenance, TAKE30 MG Q6H PRN PER DR CRANE FAX [phone], 02/01/19 9:46:36 EDT, Compound Start Date: 02/01/19 [...] mL, 1 Refills, Maintenance, 12/01/20 8:15:00 EST, [place], 1 sprays Topically 2 times a day, 162.56, cm, 02/24/20 9:30:00 EDT, Height Start Date: 12/01/20 Status: Ordered TUSSIN DM TUMADYIN DM, See Instructions, # 420 mL, Refills 1, Tot. Refills 1, Maintenance, 10 ML PO Q4H PRN FORCOUGH AT BEDTIME PER DR CRANE FAX [phone], 05/22/20 8:48:00 EDT, [facility], 162.56, cm, 02/24/20 [...] Confirmed Active Vitamin D deficiency Confirmed Active 62911; repeat 2020 2colo 2006 nl, repeat 2015 3Colonoscopy 2016 positive polyp, repeat 2020. 4colo 2015 Social History Social History Type Response Smoking Status Never smoker entered on: 02/01/16 Sex Patient Care team information Care Team Personnel Name: Rosa Maria HUSTON, Schuyler Pope Position: [facility] Physician - Primary Care Member Role: PCP Address: Address: [address] [place] [address] Road [facility] [place] [address]- Care Team Related Persons Name: ELLE ALMEIDA Address: home [address] [place] [address] [place] [address] Name: ZAK SHELL
--- OUTSIDE RECORDS SUMMARY | 2024-04-02 09:39 | XMS_ITS | Continuity of Care Document ---
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 Phone Schuyler Crane MD Primary Care Physician [facility] - 12/23/23 [facility] Adult [address] [place] [address]- Allergies, Adverse Reactions, Alerts Substance Reaction Severity [...] 08/25/04 Vishal muniz 1Result Comment: Td - [facility]# [id number] 2Result Comment: PCV23 - [facility]# [id number] 3Result Comment: [facility]# [id number] 4Result Comment: [10/28/2016] pharmacy 5Admin Note: given [...] 10/14/22 8:03:00 EST, Route to Pharmacy Electronically, [facility], 162.56, cm, 07/04/22 8:33:00 EDT, Height Start Date: 10/14/22 Status: Ordered acetaminophen 325 mg oral tablet 2, tablet, By Mouth, 2 times a day, PRN, # 20 tablet, Refills 0, Tot. Refills 0, Maintenance, NEEDED, 12/12/23 11:09:00 EDT, Route to Pharmacy Electronically, [facility], 162.56, cm, 12/11/2409:47:00 EDT, Height Start Date: 12/12/23 Stop Date: 12/17/23 Status: Ordered All Day Allergy 10 mg oral tablet 1 tablet, By Mouth, Daily in AM, FOR SEASONAL ALLERGIES FROM DECEMBER THROUGH JUNE (START 12/24 / ) SEE ANCILLARY ORDERS., # 30 tablet, 11 Refills, Maintenance, 12/21/23 7:45:00 EDT, [facility], 162.56, cm, 12/12/23 10:47:00 EDT, Height Start Date: 12/21/23 Status: Ordered amLODIPine 10 mg oral tablet 1 tablet, By Mouth, Daily in AM, FOR HYPERTENSION., # 30 tablet, 5 Refills, Maintenance, 10/25/23 0:22:00 EST, [facility], 162.56, cm, 10/03/23 9:00:00 EST, Height Start Date: 10/25/23 Status: Ordered ANTACID 500 MG CHEWABLE TAB ANTACID 500 MG CHEWABLE TAB, See Instructions, # 90 each, Refills 3, Tot. Refills 3, Maintenance, TAKE 1 TABLET PO TID FOR OSTEOPOROSIS. MAY CRUSH TABLET PER DR ROSA MARIA CRUZ [phone], 07/20/18 12:11:49EDT, Compound Start Date: 07/20/18 Status: Ordered benzonatate 100 mg oral capsule 1 capsule, By Mouth, 3 times a day, PRN NEEDED FOR COUGH / IF NO IMPROVEMENT IN 3 DAYS NOTIFY MD/ IC, JAGRUTI, # 21 capsule, 0 Refills, Maintenance, 10/05/23 12:01:00 EST, [facility], 162.56, cm, 10/03/23 9:00:00 EST, Height Start Date: 10/05/23 Status: Ordered bisacodyl 10 mg rectal suppository See Instructions, INSERT 1 SUPP (10MG) INTO RECTUM NEEDED IF MILK OF MAGNESIA INEFFECTIVE AFTER 8 HRS/BISAC- EVAC EQUIVALENT/ IF SUPPOSITORY INEFFECTIVE AFTER 4 HRS CALL MD, # 7 supp, 11 Refills, Acute, [facility], 162.56, cm, 02/25/21 9:29:00... Start Date: 04/15/21 Status: Ordered Blood Pressure Monitor See Instructions, 1, 0, 0, 06/11/07 11:11:37, PRN, HTN, ADS OPPTHS, [facility] [id number] [place] [address] Start Date: 06/11/07 Status: Ordered calcium carbonate 500 mg (200 mg elemental calcium) oral tablet, chewable 1, tablet, By Mouth, 3 times a day, CRUSH. IC: CALCIUM CARBONATE, # 90 tablet, Refills 5, Maintenance, 10/02/23 8:50:00 EST, Route to Pharmacy Electronically, [facility], 162.56, cm, 09/19/23 10:28:00 EST, Height Start Date: 10/02/23 Status: Ordered carbamide peroxide 6.5% otic solution See Instructions, INSTILL 4 DROPS INTO EACH EAR TWICE DAILY FOR 5 DAYS EACH MONTH / IC: CARBAMIDE PEROXIDE (EAR DROPS 6.5%), # 15 mL, 11 Refills, Maintenance, 09/01/23 9:17:00 EST, [facility], 30, INSTILL 4 DROPS INTO EACH [...] capsule, 5 Refills, Maintenance, 11/23/23 20:00:00 EST, [facility], 162.56, cm, 10/03/23 9:00:00 EST, Height Start Date: 11/23/23 Status: Ordered EARWAX TREATMENT DROPS 6.5% EARWAX TREATMENT DROPS 6.5%, See Instructions, # 1 each, Refills 11, Tot. Refills 11, Maintenance, USE DIRECTED FAX [phone], 12/02/20 14:40:00 EST, [facility], 162.56, cm, 02/24/20 9:30:00 EDT, Height Start Date: 12/02/20 Status: Ordered fluoride 1.1% topical gel See Instructions, USE 1/4 INCH OF GEL TO BRUSH TEETH DAILY IN THE EVENING / BRUSH THOROUGHLY ALONG GUMLINE IC: DENTAGEL, # 56 Gm, 11 Refills, Maintenance, 09/21/23 16:44:00 EST, [facility], 30, USE 1/4 INCH OF GEL TO BRUSH TEETH DAILY IN THE EVEN... Start Date: 09/21/23 Status: Ordered Carolyn-jag 8.6 mg oral tablet 1 tablet, By Mouth, Daily in PM, FOR CONSTIPATION / SEE MILK OF MAG ORDERS / IC: SENNA 8.6 MG, # 15tablet, 6 Refills, Maintenance, 10/14/22 8:03:00 EST, [facility], 162.56, cm, 07/04/22 8:33:00EDT, Height Start Date: 10/14/22 Status: Ordered Hospital Bed See Instructions, # 1 each, Refills 0, Tot. Refills 0, Maintenance, [facility] Bed DX: Left hip fracture, seizure dis, impulse control disorder, atypical autism. Duration ongoing NPI#[id number] Height: 5'6 Weight: 137lbs, 03/22/23 13:55:... Start [...] TAKE 1 TABLET BY MOUTH DAILY (VITAMIN), [facility] [address] [place] [address], Constant Indicator, MILLITRIUM TABLET Start Date: 06/20/08 [...] Start Date: 10/03/23 Status: Ordered Polysporin 500 u-45678 u/gm ointment See Instructions, APPLY A THIN LAYER TOPICALLY TWICE DAILY NEEDED TO RED, IRRITATED SKIN X 7 DAYS / SEE ANCILLARY ORDERS (BACITRACIN-POLYMYXIN OINTMENT), # 28.3 Gm, 5 Refills, Maintenance, 04/18/23 8:59:00 EDT, [facility], 7, APPLY A THIN LAYE... Start Date: 04/18/23 Status: Ordered pravastatin 40 mg oral tablet 1 tablet, By Mouth, Daily, IN PM FOR HYPERLIPIDEMIA., # 30 tablet, 5 Refills, Maintenance, 248:50:00 EST, [facility], 162.56, cm, 09/19/23 10:28:00 EST, Height Start Date: 10/02/23 Status: Ordered Profola oral tablet 1 tablet, By Mouth, Daily, # 30 tablet, 11 Refills, Maintenance, 05/19/23 10:41:00 EDT, [facility], Partial fill upon patient request if [...] tablet, 11 Refills, Maintenance, 10/26/23 8:49:00 EST, [facility], 162.56, cm, 10/03/23 9:00:00 EST, Height Start Date: 10/26/23 Status: Ordered SUDOGEST 30 MG TABLETS SUDOGEST 30 MG TABLETS, See Instructions, # 30 each, Refills 11, Tot. Refills 11, Maintenance, TAKE30 MG Q6H PRN PER DR CRANE FAX [phone], 02/01/19 9:46:36 EDT, Compound Start Date: 02/01/19 Status: Ordered Thera oral tablet 1 tablet, By Mouth, Daily in AM, VITAMIN., # 30 tablet, 5 Refills, Maintenance, 10/25/23 10:03:00 EST, [facility], 30, TAKE 1 TABLET BY MOUTH [...] mL, 1 Refills, Maintenance, 12/01/20 8:15:00 EST, [place], [facility], 1 sprays Topically 2 times a day, 162.56, cm, 02/24/20 9:30:00 EDT, Height Start Date: 12/01/20 Status: Ordered TUSSIN DM TUSSIN DM, See Instructions, # 420 mL, Refills 1, Tot. Refills 1, Maintenance, 10 ML PO Q4H PRN FORCOUGH AT BEDTIME PER DR CRANE FAX [phone], 05/22/20 8:48:00 EDT, [facility], 162.56, cm, 02/24/20 [...] Confirmed Active Vitamin D deficiency Confirmed Active 46256; repeat 2020 2colo 2006 nl, repeat 2015 3Colonoscopy 2016 positive polyp, repeat 2020. 4colo 2015 Social History Social History Type Response Smoking Status Never smoker entered on: 02/01/16 Sex Patient Care team information Care Team Personnel Name: Rosa Maria HUSTON, Schuyler Pope Position: [facility] Physician - Primary Care Member Role: PCP Address: Address: [address] [place] [address] [place] [address]- Care Team Related Persons Name: ELLE ALMEIDA Address: [address] [place] [address] Name: ZAK SHELL
--- OUTSIDE RECORDS SUMMARY | 2024-04-02 09:39 | XMS_ITS | Continuity of Care Document ---
Author Organization [facility] Address [address] [place] [address]- Care Team Providers Care Program Management Manager Name Role Phone Schuyler Crane MD Primary Care Physician [phone] Encounter [facility] Date(s): 06/03/21 - 07/03/21 [facility] [address] [place] [address]- Attending Physician: Kiara Henriquez Admitting Physician: Kiara Henriquez Referring Physician: Kiara Henriquez Allergies, Adverse Reactions, Alerts Substance Reaction Severity [...] 04/01/21 15:49:00 EDT, Route to Pharmacy Electronically, [facility], 162.56, cm, 02/25/21 9:29:00 EDT, Height Start Date: 04/01/21 Status: Ordered ANTACID 500 MG CHEWABLE TAB ANTACID 500 MG CHEWABLE TAB, See Instructions, # 90 each, Refills 3, Tot. Refills 3, Maintenance, TAKE 1 TABLET PO TID FOR OSTEOPOROSIS. MAY CRUSH TABLET PER DR CRANE FX [phone], 07/20/18 12:11:49EDT, Compound Start Date: 07/20/18 Status: Ordered bisacodyl 10 mg rectal suppository See Instructions, INSERT 1 SUPP (10MG) INTO RECTUM NEEDED IF MILK OF MAGNESIA INEFFECTIVE AFTER 8 HRS/BISAC- EVAC EQUIVALENT/ IF SUPPOSITORY INEFFECTIVE AFTER 4 HRS CALL , # 7 supp, 11 Refills, Acute, [facility], 162.56, cm, 02/25/21 9:29:00... Start Date: 04/15/21 Status: Ordered Blood Pressure Monitor See Instructions, 1, 0, 0, 06/11/07 11:11:37, PRN, HTN, ADS OPPTHS, [facility] [address] [place] [address] Start Date: 06/11/07 Status: Ordered calcium carbonate 500 mg (200 mg elemental calcium) oral tablet, chewable 500 mg, 1, tablet, By Mouth, 3 times a day, PER DR CRANE, # 90 tablet, Refills 5, Tot. Refills 5, Maintenance, 04/02/21 14:35:00 EDT, Route to Pharmacy Electronically, [facility], 162.56, cm, 02/25/21 9:29:00 EDT, Height Start Date: 04/02/21 Stop Date: 09/29/21 Status: Ordered cetirizine 10 mg oral tablet See Instructions, TAKE 1 TABLET (10 MG) BY MOUTH DAILY IN THE AM FOR SEASONAL ALLERGIES FROM DECEMBER THROUGH JUNE (START 12/24) SEE ANCILLARY ORDERS, # 30 tablet, 5 Refills, Maintenance, [facility], 162.56, cm, 02/25/21 9:29:00 EDT, He... Start Date: 02/25/21 Status: Ordered cetirizine 10 mg oral tablet 1 tablet, By Mouth, Daily in AM, FOR SEASONAL ALLERGIES FROM DECEMBER THROUGH JUNE (START 12/24) SEE ANCILLARY ORDERS., # 30 tablet, 5 Refills, Maintenance, 02/25/21 13:04:00 EDT, [facility], 162.56, cm, 02/25/21 9:29:00 EDT, Height [...] Gm, 11 Refills, Maintenance, 08/07/20 11:11:00 EST, [facility], 30, USE 1/4 INCH OF GEL TO BRUSH TEETH DAILY IN THE EVENING / BRUSH T... Start Date: 08/07/20 Status: Ordered docusate sodium 100 mg oral capsule 1 capsule, By Mouth, 2 times a day, # 60 capsule, 5 Refills, Maintenance, 01/28/21 15:23:00 EDT, [facility], 162.56, cm, 02/24/20 9:30:00 EDT, Height Start Date: 01/28/21 Status: Ordered EARWAX TREATMENT DROPS 6.5% EARWAX TREATMENT DROPS 6.5%, See Instructions, # 1 each, Refills 11, Tot. Refills 11, Maintenance, USE DIRECTED FAX [phone], 12/02/20 14:40:00 EST, [facility];, [facility], 162.56, cm, 02/24/20 9:30:00 EDT, Height Start Date: 12/02/20 Status: Ordered Milk of Magnesia 8% oral suspension See Instructions, TAKE 2 TABLESPOONFULS (30 ML) BY MOUTH AT BEDTIME NEEDED FOR CONSTIPATION ON DAY 3 OF NO BM / SEE BISCOLAX SUPP ORDER 30ML=2,400MG, # 300 mL, 5 Refills, Acute, [facility], 162.56, cm, 02/24/20 9:30:00 EDT, Height Start Date: 10/30/20 Status: Ordered MILLITRIUM TABLET See Instructions, 30, 11, 11, 06/20/08 13:07:29, TAKE 1 TABLET BY MOUTH DAILY (VITAMIN), [address] [address], Constant Indicator, MILLITRIUM TABLET Start Date: [...] bid prn nasal dryness PER DAWIT STOREY TOGGLE PRESS OPERATOR-C FAX [phone], 11/02/18 14:15:30 EST, Compound Start Date: 11/02/18 Status: Ordered Ocuflox 0.3% solution 2 drops, Eyes, Both, 4 times a day, # 10 mL, 0 Refills, Maintenance, 01/10/17 14:21:09, Ophth Solution, 2 drops Eyes, Both 4 times a day Start Date: 01/10/17 Status: Ordered Polysporin 500 u-22101 u/gm ointment See Instructions, APPLY A THIN LAYER TOPICALLY TWICE DAILY NEEDED TO RED, IRRITATED SKIN X 7 DAYS / SEE ANCILLARY ORDERS (BACITRACIN-POLYMYXIN OINTMENT), # 28.3 Gm, 5 Refills, Maintenance, 04/14/21 14:39:00 EDT, [facility], 7, APPLY A THIN LAY... Start Date: 04/14/21 Status: Ordered pravastatin 40 mg oral tablet 1 tablet, By Mouth, Daily, IN PM FOR HYPERLIPIDEMIA., # 30 tablet, 5 Refills, Maintenance, 03/05/2111:55:00 EDT, [facility], 162.56, cm, 02/25/21 9:29:00 EDT, Height [...] MG Q6H PRN PER DR CRANE FAX [phone], 02/01/19 9:46:36 EDT, Compound Start Date: 02/01/19 Status: Ordered Suphedrin 30 mg oral tablet See Instructions, TAKE 1 TAB (30 MG) BY MOUTH EVERY 6 HRS NEEDED FOR NASAL CONGESTION/ SEE ANCILLARY ORDERS (SUDOGEST EQUIVALENT), # 30 tablet, 11 Refills, Acute, [facility], 162.56, cm, 02/24/20 9:30:00 EDT, Height Start Date: 05/22/20 Status: Ordered THERA CAPLETS THERA CAPLETS, See Instructions, # 30 each, Refills 5, Tot. Refills 5, Maintenance, TAKE ONE CAPLETBY MOUTH QD PER DR CRANE FAX [phone], 10/08/20 11:48:00 EST, Compound, 162.56, cm, 02/24/20 9:30:00 EDT, Height Start Date: 10/08/20 Status: Ordered Thera oral tablet 1 tablet, By Mouth, Daily in AM, VITAMIN., # 30 tablet, 5 Refills, Maintenance, 03/05/21 11:55:00 EDT, [facility], 30, TAKE 1 TABLET BY MOUTH DAILY IN THE AM (VITAMIN), 162.56, cm, 02/25/21 9:29:00 EDT, Height Start Date: 03/05/21 Status: Ordered Tinactin 1% spray 1 sprays, Topically, 2 times a day, # 120 mL, 1 Refills, Maintenance, 12/01/20 8:15:00 EST, [place], [facility], 1 sprays Topically 2 times a day, 162.56, cm, 02/24/20 9:30:00 EDT, Height Start Date: 12/01/20 Status: Ordered CHAKASSIN KUSHAL BERRY DM, See Instructions, # 420 mL, Refills 1, Tot. Refills 1, Maintenance, 10 ML PO Q4H PRN FORCOUGH AT BEDTIME PER DR CRANE FAX [phone], 05/22/20 8:48:00 EDT, Compound, 162.56, cm, 02/24/20 9:30:00 EDT, Height Start Date: 05/22/20 Status: Ordered Tylenol 325 mg oral tablet 650 mg, 2, tablet, By Mouth, Every 4 hours, PER DR CRANE, # 168 tablet, Refills 5, Tot. Refills 5, Maintenance, 10/04/19 10:27:00 EST, Route to Pharmacy Electronically, [facility], 162.56, cm, 02/12/19 10:36:00 EDT, Height Start Date: 10/04/19 Status: Ordered Vitamin D3 2000 intl units oral tablet 1 tablet = 2,000 International_Units, By Mouth, Daily, PER DR CARNE, # 30 tablet, 11 Refills, Maintenance, 02/08/19 [...] Active Underweight(Confirmed) Active Vitamin D deficiency(Confirmed) Active 02646; repeat 2020 2colo 2006 nl, repeat 2015 3Colonoscopy 2016 positive polyp, repeat 2020. 4colo 2015 Social History Social History Type Response Smoking Status Never smoker entered on: 02/01/16 Sex
--- OUTSIDE RECORDS SUMMARY | 2024-04-02 09:39 | XMS_ITS | Continuity of Care Document ---
Author Organization [facility] Salvatore Todd lt Address [address] [place] [address]- Care Team Providers Care Development Specialist Name Role Phone Schuyler Crane MD Primary Care Physician Encounter [facility] Date(s): 10/07/20 - 11/06/20 [facility] [address] [place] [address]- Allergies, Adverse Reactions, Alerts Substance Reaction Severity [...] 5 Refills, Soft Stop, 04/03/20 16:18:00 EDT, [facility], 162.56, cm, 02/24/20 9:30:00 EDT, Height Start Date: 04/03/20 Status: Ordered amLODIPine 10 mg oral tablet 10 mg, 1, tablet, By Mouth, Daily, # 90 tablet, Refills 1, Tot. Refills 1, Soft Stop, 10/08/20 8:13:00 EST, Route to Pharmacy Electronically, [facility], 162.56, cm, 02/24/20 9:30:00 EDT, Height Start Date: 10/08/20 Status: Ordered ANTACID 500 MG CHEWABLE TAB ANTACID 500 MG CHEWABLE TAB, See Instructions, # 90 each, Refills 3, Tot. Refills 3, Maintenance, TAKE 1 TABLET PO TID FOR OSTEOPOROSIS. MAY CRUSH TABLET PER DR ROSA MARIA CRUZ [phone], 07/20/18 12:11:49EDT, Compound Start Date: 07/20/18 Status: Ordered Bisco-Lax 10 mg rectal suppository See Instructions, INSERT 1 SUPP (10MG) INTO RECTUM NEEDED IF MILK OF MAGNESIA INEFFECTIVE AFTER 8 HRS/BISAC- EVAC EQUIVALENT/ IF SUPPOSITORY INEFFECTIVE AF, # 7 supp, 11 Refills, Acute, [facility], 162.56, cm, 02/24/20 9:30:00 EDT, Height Start Date: 03/30/20 Status: Ordered Blood Pressure Monitor See Instructions, 1, 0, 0, 06/11/07 11:11:37, PRN, HTN, ADS OPPTHS, [facility] [address] [place] [address] Start Date: 06/11/07 Status: Ordered calcium carbonate 500 mg (200 mg elemental calcium) oral tablet, chewable 500 mg, 1, tablet, By Mouth, 3 times a day, PER DR CRANE, # 90 tablet, Refills 11, Tot. Refills 11, Maintenance, 12/09/19 14:35:00 EDT, Route to Pharmacy Electronically, [facility], 162.56, cm, 02/12/19 10:36:00 EDT, Height [...] Gm, 11 Refills, Maintenance, 08/07/20 11:11:00 EST, [facility], 30, USE 1/4 INCH OF GEL TO BRUSH TEETH DAILY IN THE EVENING / BRUSH T... Start Date: 08/07/20 Status: Ordered docusate sodium 100 mg oral capsule 1 capsule, By Mouth, 2 times a day, # 60 capsule, 5 Refills, Maintenance, 07/30/20 15:26:00 EST, [facility], 162.56, cm, 02/24/20 9:30:00 EDT, Height Start Date: 07/30/20 Status: Ordered EARWAX TREATMENT DROPS 6.5% EARWAX TREATMENT DROPS 6.5%, See Instructions, # 1 each, Refills 11, Tot. Refills 11, Maintenance, USE DIRECTED FAX [phone], 10/01/19 11:14:00 EST, [facility];, Compound Start Date: 10/01/19 Status: Ordered Milk of Magnesia 8% oral suspension See Instructions, TAKE 2 TABLESPOONFULS (30 ML) BY MOUTH AT BEDTIME NEEDED FOR CONSTIPATION ON DAY 3 OF NO BM / SEE BISCOLAX SUPP ORDER 30ML=2,400MG, # 300 mL, 5 Refills, Acute, [facility], 162.56, cm, 02/24/20 9:30:00 EDT, Height Start Date: 10/30/20 Status: Ordered MILLITRIUM TABLET See Instructions, 30, 11, 11, 06/20/08 13:07:29, TAKE 1 TABLET BY MOUTH DAILY (VITAMIN), [facility] [address] [place] [address], Constant Indicator, MILLITRIUM TABLET Start Date: 06/20/08 [...] bid prn nasal dryness PER DAWIT STOREY [employer] PUMP OPERATOR-C FAX [phone], 11/02/18 14:15:30 EST, Compound Start Date: 11/02/18 Status: Ordered Ocuflox 0.3% solution 2 drops, Eyes, Both, 4 times a day, # 10 mL, 0 Refills, Maintenance, 01/10/17 14:21:09, Ophth Solution, 2 drops Eyes, Both 4 times a day Start Date: 01/10/17 Status: Ordered Polysporin 500 u-44620 u/gm ointment See Instructions, APPLY A THIN LAYER TOPICALLY TWICE DAILY NEEDED TO RED, IRRITATED SKIN X 7 DAYS / SEE ANCILLARY ORDERS (BACITRACIN-POLYMYXIN OINTMENT), # 28.3 Gm, 5 Refills, Acute, [facility], 7, APPLY A THIN LAYER TOPICALLY TWICE DAILY N... Start Date: 03/30/20 Status: Ordered Polysporin 500 u-06408 u/gm ointment See Instructions, APPLY A THIN [...] IN THE EVENING FOR CONSTIPATION PER DR CARNE, # 100 tablet, Refills 6, Tot. Refills 6, Maintenance, for constipation, 08/27/20 14:07:00 EST, Instructions Replace Required Details, Route to Phar... Start Date: 08/27/20 Status: Ordered SUDOGEST 30 MG TABLETS SUDOGEST 30 MG TABLETS, See Instructions, # 30 each, Refills 11, Tot. Refills 11, Maintenance, TAKE30 MG Q6H PRN PER DR CRANE FAX [phone], 02/01/19 9:46:36 EDT, Compound Start Date: 02/01/19 Status: Ordered Suphedrin 30 mg oral tablet See Instructions, TAKE 1 TAB (30 MG) BY MOUTH EVERY 6 HRS NEEDED FOR NASAL CONGESTION/ SEE ANCILLARY ORDERS (SUDOGEST EQUIVALENT), # 30 tablet, 11 Refills, Acute, [facility], 162.56, cm, 02/24/20 9:30:00 EDT, Height Start Date: 05/22/20 Status: Ordered THERA CAPLETS THERA CAPLETS, See Instructions, # 30 each, Refills 5, Tot. Refills 5, Maintenance, TAKE ONE CAPLETBY MOUTH QD PER DR ROSA MARIA HUGHESX [phone], 10/08/20 11:48:00 EST, Compound, 162.56, cm, 02/24/20 9:30:00 EDT, Height Start Date: 10/08/20 Status: Ordered Tinactin 1% spray 1 sprays, Topically, 2 times a day, # 120 mL, 1 Refills, Maintenance, 11/01/19 10:28:00 EST, [place], 1 sprays Topically 2 times a day, 162.56, cm, 02/12/19 10:36:00 EDT, Height Start Date: 11/01/19 Status: Ordered TUSSIN KUSHAL AVINAIN KUSHAL, See Instructions, # 420 mL, Refills 1, Tot. Refills 1, Maintenance, 10 ML PO Q4H PRN FORCOUGH AT BEDTIME PER DR CRANE FAX [phone], 05/22/20 8:48:00 EDT, [facility], 162.56, cm, 02/24/20 9:30:00 EDT, Height Start Date: 05/22/20 Status: Ordered Tylenol 325 mg oral tablet 650 mg, 2, tablet, By Mouth, Every 4 hours, PER DR CRANE, # 168 tablet, Refills 5, Tot. Refills 5, Maintenance, 10/04/19 10:27:00 EST, Route to Pharmacy Electronically, [facility], 162.56, cm, 02/12/19 10:36:00 EDT, Height [...] Active Underweight(Confirmed) Active Vitamin D deficiency(Confirmed) Active 54720; repeat 2020 2colo 2006 nl, repeat 2015 3Colonoscopy 2016 positive polyp, repeat 2020. 4colo 2015 Social History Social History Type Response Smoking Status Never smoker entered on: 02/01/16 Sex
--- OUTSIDE RECORDS SUMMARY | 2024-04-02 09:39 | XMS_ITS | Continuity of Care Document ---
Author Organization [facility] Salvatore Todd lt Address [address] [place] [address]- Care Team Providers Care Stone Driller Helper Name Role Phone Schuyler Crane MD Primary Care Physician [phone] Encounter [facility] Date(s): 12/27/22 - 01/26/23 [facility] [address] [place] [address]- Attending Physician: Admtr, Ar8 Allergies, Adverse Reactions, [...] Given Tetanus-Diphth Toxoids, Adult (oldterm) 08/25/04 G sunitaen 1Result Comment: Td - [facility]# [id number] 2Result Comment: PCV23 - [facility]# [id number] 3Result Comment: [facility]# [id number] 4Result Comment: [10/28/2016] pharmacy 5Admin Note: given [...] 10/14/22 8:03:00 EST, Route to Pharmacy Electronically, [facility], 162.56, cm, 07/04/22 8:33:00 EDT, Height Start Date: 10/14/22 Status: Ordered All Day Allergy 10 mg oral tablet See Instructions, TAKE 1 TABLET (10 MG) BY MOUTH DAILY IN THE AM FOR SEASONAL ALLERGIES FROM DECEMBER THROUGH JUNE (START 12/24 / END 07/25) SEE ANCILLARY ORDERS, # 30 tablet, 2 Refills, Maintenance, 07/22/22 15:15:00 EDT, [facility], 162.56, cm, 1... Start Date: 07/22/22 Status: Ordered amLODIPine 10 mg oral tablet See Instructions, TAKE 1 TABLET (10 MG) BY MOUTH DAILY IN AM FOR HYPERTENSION, # 30 tablet, 5 Refills, 09/29/22 11:37:00 EST, [facility], 162.56, cm, 07/04/22 8:33:00 EDT, Height Start Date: 09/29/22 Status: Ordered ANTACID 500 MG CHEWABLE TAB ANTACID 500 MG CHEWABLE TAB, See Instructions, # 90 each, Refills 3, Tot. Refills 3, Maintenance, TAKE 1 TABLET PO TID FOR OSTEOPOROSIS. MAY CRUSH TABLET PER DR ROSA MARIA CRUZ [phone], 07/20/18 12:11:49EDT, Compound Start Date: 07/20/18 Status: Ordered benzonatate 100 mg oral capsule 1 capsule, By Mouth, 3 times a day, PRN NEEDED FOR COUGH / IF NO IMPROVEMENT IN 3 DAYS NOTIFY MD/ IC, JAGRUTI, # 21 capsule, 0 Refills, [facility], 162.56, cm, 12/06/21 13:34:00 EDT, Height Start Date: 02/25/22 Status: Ordered bisacodyl 10 mg rectal suppository See Instructions, INSERT 1 SUPP (10MG) INTO RECTUM NEEDED IF MILK OF MAGNESIA INEFFECTIVE AFTER 8 HRS/BISAC- EVAC EQUIVALENT/ IF SUPPOSITORY INEFFECTIVE AFTER 4 HRS CALL MD, # 7 supp, 11 Refills, Acute, [facility], 162.56, cm, 02/25/21 9:29:00... Start Date: 04/15/21 Status: Ordered Blood Pressure Monitor See Instructions, 1, 0, 0, 06/11/07 11:11:37, PRN, HTN, ADS OPPTHS, [facility] [address] Start Date: 06/11/07 Status: Ordered calcium carbonate 500 mg (200 mg elemental calcium) oral tablet, chewable See Instructions, TAKE 1 TABLET (500 MG) BY MOUTH 3 TIMES A DAY FOR OSTEOPOROSIS MAY CRUSH TABLET IC: CALCIUM CARBONATE, # 90 tablet, Refills 5, Maintenance, 08/25/22 14:03:00 EST, Instructions Replace Required Details, Route to Pharmacy Electronicall... Start Date: 08/25/22 Status: Ordered carbamide peroxide 6.5% otic solution See Instructions, INSTILL 4 DROPS INTO EACH EAR TWICE DAILY FOR 5 DAYS EACH MONTH / IC: CARBAMIDE PEROXIDE (EAR DROPS 6.5%), # 15 mL, 11 Refills, Maintenance, 08/21/22 7:49:00 EST, [facility], 30, INSTILL 4 DROPS INTO EACH [...] capsule, 5 Refills, Maintenance, 10/20/22 6:09:00 EST, [facility], 162.56, cm, 07/04/22 8:33:00 EDT, Height Start Date: 10/20/22 Status: Ordered EARWAX TREATMENT DROPS 6.5% EARWAX TREATMENT DROPS 6.5%, See Instructions, # 1 each, Refills 11, Tot. Refills 11, Maintenance, USE DIRECTED FAX [phone], 12/02/20 14:40:00 EST, [facility];, [facility], 162.56, cm, 02/24/20 9:30:00 EDT, Height Start Date: 12/02/20 Status: Ordered fluoride 1.1% topical gel See Instructions, USE 1/4 INCH OF GEL TO BRUSH TEETH DAILY IN THE EVENING / BRUSH THOROUGHLY ALONG GUMLINE IC: DENTAGEL, # 56 Gm, 11 Refills, [facility], 30, USE 1/4 INCH OF GEL TO BRUSH TEETH DAILY IN THE EVENING / BRUSH THOROUGHLY ALONG GUMLINE... Start Date: 01/28/22 Status: Ordered Carolyn-jag 8.6 mg oral tablet 1 tablet, By Mouth, Daily in PM, FOR CONSTIPATION / SEE MILK OF MAG ORDERS / IC: SENNA 8.6 MG, # 15tablet, 6 Refills, Maintenance, 10/14/22 8:03:00 EST, [facility], 162.56, cm, 07/04/22 8:33:00EDT, Height Start [...] 30ML=2,400MG, # 300 mL, 5 Refills, Acute, [facility], 162.56, cm, 02/24/20 9:30:00 EDT, Height Start Date: 10/30/20 Status: Ordered MILLITRIUM TABLET See Instructions, 30, 11, 11, 06/20/08 13:07:29, TAKE 1 TABLET BY MOUTH DAILY (VITAMIN), [facility] [address] [place] [address], Constant Indicator, MILLITRIUM TABLET Start Date: 06/20/08 [...] prn nasal dryness PER DAWIT STOREY RN SANE-C FAX [phone], 11/02/18 14:15:30 EST, [facility] Start Date: 11/02/18 Status: Ordered Ocuflox 0.3% solution 2 drops, Eyes, Both, 4 times a day, # 10 mL, 0 Refills, Maintenance, 01/10/17 14:21:09, Ophth Solution, 2 drops Eyes, Both 4 times a day Start Date: 01/10/17 Status: Ordered Polysporin 500 u-34987 u/gm ointment See Instructions, APPLY A THIN LAYER TOPICALLY TWICE DAILY NEEDED TO RED, IRRITATED SKIN X 7 DAYS / SEE ANCILLARY ORDERS (BACITRACIN-POLYMYXIN OINTMENT), # 28.3 Gm, 5 Refills, Maintenance, 04/14/21 14:39:00 EDT, [facility], 7, APPLY A THIN LAY... Start Date: 04/14/21 Status: Ordered pravastatin 40 mg oral tablet See Instructions, TAKE 1 TABLET (40 MG) BY MOUTH DAILY IN PM FOR HYPERLIPIDEMIA, # 30 tablet, 5 Refills, Maintenance, 08/21/22 14:03:00 EST, [facility], 162.56, cm, 07/04/22 8:33:00 EDT, Height Start Date: 08/21/22 Status: Ordered RisperDAL 0.25 mg oral tablet [...] (SUPHEDRIN EQUIVALENT), # 30 tablet, 11 Refills, [facility], 162.56, cm, 03/24/22 10:31:00 EDT, Height Start Date: 04/22/22 Status: Ordered SUDOGEST 30 MG TABLETS SUDOGEST 30 MG TABLETS, See Instructions, # 30 each, Refills 11, Tot. Refills 11, Maintenance, TAKE30 MG Q6H PRN PER DR CRANE FAX [phone], 02/01/19 9:46:36 EDT, Compound Start Date: 02/01/19 Status: Ordered THERA CAPLETS THERA CAPLETS, See Instructions, # 30 each, Refills 5, Tot. Refills 5, Maintenance, TAKE ONE CAPLETBY MOUTH QD PER DR CRANE FAX [phone], 10/08/20 11:48:00 EST, [facility], 162.56, cm, 02/24/20 9:30:00 EDT, Height Start Date: 10/08/20 Status: Ordered Thera oral tablet See Instructions, TAKE 1 TABLET BY MOUTH DAILY IN THE AM (VITAMIN), # 30 tablet, 5 Refills, Maintenance, 08/25/22 14:03:00 EST, [facility], 30, TAKE 1 TABLET BY MOUTH DAILY IN THE AM (VITAMIN), 162.56, cm, 07/04/22 8:33:00 EDT, Height Start Date: 08/25/22 Status: Ordered TINACTIN 1% AEROSOL POWDER 1 Aerosol TINACTIN 1% AEROSOL POWDER 1 Aerosol, 2, sprays, Topically, 2 times a day, PRN, # 133 Gm, 1 Refills, 162.56, cm, 02/25/21 9:29:00 EDT, Height Start Date: 11/05/21 Status: Ordered Tinactin 1% spray 1 sprays, Topically, 2 times a day, # 120 mL, 1 Refills, Maintenance, 12/01/20 8:15:00 EST, [place], [facility], 1 sprays Topically 2 times a day, 162.56, cm, 02/24/20 9:30:00 EDT, Height Start Date: 12/01/20 Status: Ordered KAILYNIN KUSHAL FATIMA, See Instructions, # 420 mL, Refills 1, Tot. Refills 1, Maintenance, 10 ML PO Q4H PRN FORCOUGH AT BEDTIME PER DR ROSA MARIA ANN [phone], 05/22/20 8:48:00 EDT, [facility], 162.56, cm, 02/24/20 [...] Confirmed Active Vitamin D deficiency Confirmed Active 68395; repeat 2020 2colo 2005 nl, repeat 2015 3Colonoscopy 2016 positive polyp, repeat 2020. 4colo 2016 Procedures Procedure Date Related Diagnosis Body Site Status Colonoscopy 1 12/30/15 Completed 1repeat 2020 Vital Signs Most recent to oldest [Reference Range]: 1 Dry Weight 53 kg (02/04/15 8:06 AM) Social History Social History Type Response Smoking Status Never smoker entered on: 02/01/16 Sex Cardiology * Gely Spain.: PERFORM Event Display: Cardiovascular Results Scanned Authored Date: [id number] * Gely Spain.: PERFORM Event Display: Cardiovascular Results Scanned Authored Date: Laboratory * Lesli Mejia: PERFORM Event Display: Laboratory Results Scanned Authored Date: [id number] * Gely Spain.: PERFORM Event Display: Laboratory Results Scanned Authored Date: [id number] * Joann Bergeron: PERFORM Event Display: Laboratory Results Scanned Authored Date: [id number] Radiology * Rody Kilpatrick: PERFORM Event Display: Radiology Results Scanned Authored Date: [id number] * Gely Spain.: PERFORM Event Display: Radiology Results Scanned Authored Date: [id number] * Anay Wang: PERFORM Event Display: Radiology Results Scanned Authored Date: [id number] Patient Care team information Care Team Personnel Name: Schuyler Crane MD Position: [facility] Primary Care Physician Member Role: PCP Address: Address: [address] [place] [address]- Care Team Related Persons Name: ELLE ALMEIDA Address: home [address] [place] [address] Name: ZAK SHELL
--- OUTSIDE RECORDS SUMMARY | 2024-04-02 09:39 | XMS_ITS | Continuity of Care Document ---
Author Organization [facility] Salvatore Todd lt Address [address] [place] [address]- Care Team Providers Care Collection Administrator Name Role Phone Schuyler Crane MD Primary Care Physician [phone] [facility]23 - 04/21/23 [facility] Adult [address] [place] [address]- Allergies, Adverse Reactions, Alerts Substance Reaction Severity [...] 08/25/04 G cristy 1Result Comment: Td - [facility]# [id number] 2Result Comment: PCV23 - [facility]# [id number] 3Result Comment: [facility]# [id number] 4Result Comment: [10/28/2016] pharmacy 5Admin Note: given [...] 10/14/22 8:03:00 EST, Route to Pharmacy Electronically, [facility], 162.56, cm, 07/04/22 8:33:00 EDT, Height Start Date: 10/14/22 Status: Ordered All Day Allergy 10 mg oral tablet See Instructions, TAKE 1 TABLET (10 MG) BY MOUTH DAILY IN THE AM FOR SEASONAL ALLERGIES FROM DECEMBER THROUGH JUNE (START 12/24 / END 07/25) SEE ANCILLARY ORDERS, # 30 tablet, 2 Refills, Maintenance, 04/13/23 14:33:00 EDT, [facility], 162.56, cm, 0... Start Date: 04/13/23 Status: Ordered amLODIPine 10 mg oral tablet 1 tablet, By Mouth, Daily in AM, FOR HYPERTENSION., # 30 tablet, 5 Refills, Maintenance, 04/19/23 23:11:00 EDT, [facility], 162.56, cm, 04/10/23 7:35:00 EDT, Height Start Date: 04/19/23 Status: Ordered ANTACID 500 MG CHEWABLE TAB ANTACID 500 MG CHEWABLE TAB, See Instructions, # 90 each, Refills 3, Tot. Refills 3, Maintenance, TAKE 1 TABLET PO TID FOR OSTEOPOROSIS. MAY CRUSH TABLET PER DR ROSA MARIA CRUZ [phone], 07/20/18 12:11:49EDT, Compound Start Date: 07/20/18 Status: Ordered benzonatate 100 mg oral capsule 1 capsule, By Mouth, 3 times a day, PRN NEEDED FOR COUGH / IF NO IMPROVEMENT IN 3 DAYS NOTIFY MD/ IC, JAGRUTI, # 21 capsule, 0 Refills, Maintenance, 02/17/23 8:57:00 EDT, [facility], 162.56, cm, 07/04/22 8:33:00 EDT, Height Start Date: 02/17/23 Status: Ordered bisacodyl 10 mg rectal suppository See Instructions, INSERT 1 SUPP (10MG) INTO RECTUM NEEDED IF MILK OF MAGNESIA INEFFECTIVE AFTER 8 HRS/BISAC- EVAC EQUIVALENT/ IF SUPPOSITORY INEFFECTIVE AFTER 4 HRS CALL MD, # 7 supp, 11 Refills, Acute, [facility], 162.56, cm, 02/25/21 9:29:00... Start Date: 04/15/21 Status: Ordered Blood Pressure Monitor See Instructions, 1, 0, 0, 06/11/07 11:11:37, PRN, HTN, ADS OPPTHS, [facility] [place] [address] Start Date: 06/11/07 Status: Ordered calcium carbonate 500 mg (200 mg elemental calcium) oral tablet, chewable 1, tablet, By Mouth, 3 times a day, CRUSH. IC: CALCIUM CARBONATE, # 90 tablet, Refills 5, Maintenance, 02/17/23 8:57:00 EDT, Route to Pharmacy Electronically, [facility], 162.56, cm, 07/04/22 8:33:00 EDT, Height Start Date: 02/17/23 Status: Ordered carbamide peroxide 6.5% otic solution See Instructions, INSTILL 4 DROPS INTO EACH EAR TWICE DAILY FOR 5 DAYS EACH MONTH / IC: CARBAMIDE PEROXIDE (EAR DROPS 6.5%), # 15 mL, 11 Refills, Maintenance, 08/21/22 7:49:00 EST, [facility], 30, INSTILL 4 DROPS INTO EACH [...] capsule, 5 Refills, Maintenance, 10/20/22 6:09:00 EST, [facility], 162.56, cm, 07/04/22 8:33:00 EDT, Height Start Date: 10/20/22 Status: Ordered EARWAX TREATMENT DROPS 6.5% EARWAX TREATMENT DROPS 6.5%, See Instructions, # 1 each, Refills 11, Tot. Refills 11, Maintenance, USE DIRECTED FAX [phone], 12/02/20 14:40:00 EST, [facility], 162.56, cm, 02/24/20 9:30:00 EDT, Height Start Date: 12/02/20 Status: Ordered fluoride 1.1% topical gel See Instructions, USE 1/4 INCH OF GEL TO BRUSH TEETH DAILY IN THE EVENING / BRUSH THOROUGHLY ALONG GUMLINE IC: DENTAGEL, # 56 Gm, 11 Refills, [facility], 30, USE 1/4 INCH OF GEL TO BRUSH TEETH DAILY IN THE EVENING / BRUSH THOROUGHLY ALONG GUMLINE... Start Date: 01/28/22 Status: Ordered Carolyn-jag 8.6 mg oral tablet 1 tablet, By Mouth, Daily in PM, FOR CONSTIPATION / SEE MILK OF MAG ORDERS / IC: SENNA 8.6 MG, # 15tablet, 6 Refills, Maintenance, 10/14/22 8:03:00 EST, [facility], 162.56, cm, 07/04/22 8:33:00EDT, Height Start Date: 10/14/22 Status: Ordered Hospital Bed See Instructions, # 1 each, Refills 0, Tot. Refills 0, Maintenance, [facility] DX: Left hip fracture, seizure dis, impulse control disorder, atypical autism. Duration ongoing NPI#[id number] Height: 5'6 Weight: 137lbs, 03/22/23 13:55:... Start Date: 03/22/23 Status: Ordered Milk of Magnesia 8% oral suspension See Instructions, TAKE 2 TABLESPOONFULS (30 ML) BY MOUTH AT BEDTIME NEEDED FOR CONSTIPATION ON DAY 3 OF NO BM / SEE BISCOLAX SUPP ORDER 30ML=2,400MG, # 300 mL, 5 Refills, Acute, [facility], 162.56, cm, 02/24/20 9:30:00 EDT, Height Start Date: 10/30/20 Status: Ordered MILLITRIUM TABLET See Instructions, 30, 11, 11, 06/20/08 13:07:29, TAKE 1 TABLET BY MOUTH DAILY (VITAMIN), [facility] [address] [place] [address], Constant Indicator, MILLITRIUM TABLET Start Date: 06/20/08 Status: Ordered OCEAN SALINE NASAL MIST OCEAN SALINE NASAL MIST, See Instructions, # 1 each, Refills 2, Tot. Refills 2, Maintenance, use bid prn nasal dryness, 11/06/18 9:57:36 EST, [facility] Start Date: 11/06/18 Status: Ordered Polysporin 500 u-44619 u/gm ointment See Instructions, APPLY A THIN LAYER TOPICALLY TWICE DAILY NEEDED TO RED, IRRITATED SKIN X 7 DAYS / SEE ANCILLARY ORDERS (BACITRACIN-POLYMYXIN OINTMENT), # 28.3 Gm, 5 Refills, Maintenance, 04/18/23 8:59:00 EDT, [facility], 7, APPLY A THIN LAYE... Start Date: 04/18/23 Status: Ordered pravastatin 40 mg oral tablet See Instructions, TAKE 1 TABLET (40 MG) BY MOUTH DAILY IN PM FOR HYPERLIPIDEMIA, # 30 tablet, 5 Refills, Maintenance, 02/17/23 13:00:00 EDT, [facility], 162.56, cm, 07/04/22 8:33:00 EDT, Height [...] (SUPHEDRIN EQUIVALENT), # 30 tablet, 11 Refills, [facility], 162.56, cm, 03/24/22 10:31:00 EDT, Height Start Date: 04/22/22 Status: Ordered SUDOGEST 30 MG TABLETS SUDOGEST 30 MG TABLETS, See Instructions, # 30 each, Refills 11, Tot. Refills 11, Maintenance, TAKE30 MG Q6H PRN PER DR CRANE FAX [phone], 02/01/19 9:46:36 EDT, Compound Start Date: 02/01/19 Status: Ordered THERA CAPLETS THERA CAPLETS, See Instructions, # 30 each, Refills 5, Tot. Refills 5, Maintenance, TAKE ONE CAPLETBY MOUTH QD PER DR CRANE FAX [phone], 10/08/20 11:48:00 EST, [facility], 162.56, cm, 02/24/20 [...] mL, 1 Refills, Maintenance, 12/01/20 8:15:00 EST, [place], 1 sprays Topically 2 times a day, 162.56, cm, 02/24/20 9:30:00 EDT, Height Start Date: 12/01/20 Status: Ordered TUSSIN DM TUSSIN DM, See Instructions, # 420 mL, Refills 1, Tot. Refills 1, Maintenance, 10 ML PO Q4H PRN FORCOUGH AT BEDTIME PER DR CRANE FAX [phone], 05/22/20 8:48:00 EDT, [facility], 162.56, cm, 02/24/20 [...] Confirmed Active Vitamin D deficiency Confirmed Active 20921; repeat 2020 2colo 2006 nl, repeat 2015 3Colonoscopy 2016 positive polyp, repeat 2020. 4colo 2015 Social History Social History Type Response Smoking Status Never smoker entered on: 02/01/16 Sex Patient Care team information Care Team Personnel Name: Rosa Maria HUSTON, Schuyler Pope Position: [facility] Physician - Primary Care Member Role: PCP Address: Address: [address] [place] [address]- Care Team Related Persons Name: ELLE ALMEIDA Address: home [address] [place] [id number] Name: ZAK SHELL
--- OUTSIDE RECORDS SUMMARY | 2024-04-02 09:39 | XMS_ITS | Continuity of Care Document ---
Author Organization [facility] Todd lt Address [address] [place] [address]- Care Team Providers Care Medical Oncology Physician Name Role Phone Schuyler Crane MD Primary Care Physician [facility] 04[facility]20 - 05/03/20 [facility] Adult [address] [place] [address]- [facility] Allergies, Adverse Reactions, Alerts Substance Reaction Severity [...] 5 Refills, Soft Stop, 04/03/20 16:18:00 EDT, [facility], 162.56, cm, 02/24/20 9:30:00 EDT, Height Start Date: 04/03/20 Status: Ordered amLODIPine 10 mg oral tablet 10 mg, 1, tablet, By Mouth, Daily, # 90 tablet, Refills 1, Tot. Refills 1, Soft Stop, 04/09/20 13:02:00 EDT, Route to Pharmacy Electronically, [facility], 162.56, cm, 02/24/20 9:30:00 EDT, Height Start Date: 04/09/20 Status: Ordered ANTACID 500 MG CHEWABLE TAB ANTACID 500 MG CHEWABLE TAB, See Instructions, # 90 each, Refills 3, Tot. Refills 3, Maintenance, TAKE 1 TABLET PO TID FOR OSTEOPOROSIS. MAY CRUSH TABLET PER DR CRANE FX [phone], 07/20/18 12:11:49EDT, Compound Start Date: 07/20/18 Status: Ordered Bisco-Lax 10 mg rectal suppository See Instructions, INSERT 1 SUPP (10MG) INTO RECTUM NEEDED IF MILK OF MAGNESIA INEFFECTIVE AFTER 8 HRS/BISAC- EVAC EQUIVALENT/ IF SUPPOSITORY INEFFECTIVE AF, # 7 supp, 11 Refills, Acute, [facility], 162.56, cm, 02/24/20 9:30:00 EDT, Height Start Date: 03/30/20 Status: Ordered Blood Pressure Monitor See Instructions, 1, 0, 0, 06/11/07 11:11:37, PRN, HTN, ADS OPPTHS, [facility] [id number] [place] [address] Start Date: 06/11/07 Status: Ordered calcium carbonate 500 mg (200 mg elemental calcium) oral tablet, chewable 500 mg, 1, tablet, By Mouth, 3 times a day, PER DR CRANE, # 90 tablet, Refills 11, Tot. Refills 11, Maintenance, 12/09/19 14:35:00 EDT, Route to Pharmacy Electronically, [facility], 162.56, cm, 02/12/19 10:36:00 EDT, Height [...] 02/06/20 12:14:00 EDT, Route to Pharmacy Electronically, [facility], 162.56, cm, 02/12/19 10:36:00 EDT, Height [...] Tot. Refills 11, Maintenance, USE DIRECTED FAX [phone], 10/01/19 11:14:00 EST, [facility] Compound Start Date: [...] TAKE 1 TABLET BY MOUTH DAILY (VITAMIN), [facility] [address] [place] [address], Constant Indicator, MILLITRIUM TABLET Start Date: 06/20/08 [...] bid prn nasal dryness PER DAWIT STOREY ELECTRICAL INSTALLATION INSPECTOR-C FAX [phone], 11/02/18 14:15:30 EST, Compound Start Date: 11/02/18 Status: Ordered Ocuflox 0.3% solution 2 drops, Eyes, Both, 4 times a day, # 10 mL, 0 Refills, Maintenance, 01/10/17 14:21:09, Ophth Solution, 2 drops Eyes, Both 4 times a day Start Date: 01/10/17 Status: Ordered Polysporin 500 u-30374 u/gm ointment See Instructions, APPLY A THIN LAYER TOPICALLY TWICE DAILY NEEDED TO RED, IRRITATED SKIN X 7 DAYS / SEE ANCILLARY ORDERS (BACITRACIN-POLYMYXIN OINTMENT), # 28.3 Gm, 5 Refills, Acute, [facility], 7, APPLY A THIN LAYER TOPICALLY TWICE DAILY N... Start Date: 03/30/20 Status: Ordered Polysporin 500 u-28500 u/gm ointment See Instructions, APPLY A THIN [...] MG Q6H PRN PER DR CRANE FAX [phone], 02/01/19 9:46:36 EDT, Compound Start Date: 02/01/19 Status: Ordered THERA CAPLETS THERA CAPLETS, See Instructions, # 30 each, Refills 5, Tot. Refills 5, Maintenance, TAKE ONE CAPLETBY MOUTH QD PER DR CRANE FAX [phone], 03/12/20 12:59:00 EDT, [facility], 162.56, cm, 02/24/20 9:30:00 EDT, Height Start Date: 03/12/20 Status: Ordered Tinactin 1% spray 1 sprays, Topically, 2 times a day, # 120 mL, 1 Refills, Maintenance, 11/01/19 10:28:00 EST, [place], 1 sprays Topically 2 times a day, 162.56, cm, 02/12/19 10:36:00 EDT, Height Start Date: 11/01/19 Status: Ordered TUSSIN DM TUSSIN DM, See Instructions, # 420 mL, Refills 1, Tot. Refills 1, Maintenance, 10 ML PO Q4H PRN FORCOUGH AT BEDTIME PER DR CRANE FAX [phone], 04/23/18 12:14:04 EDT, Compound Start Date: 04/23/18 Status: Ordered Tylenol 325 mg oral tablet 650 mg, 2, tablet, By Mouth, Every 4 hours, PER DR CRANE, # 168 tablet, Refills 5, Tot. Refills 5, Maintenance, 10/04/19 10:27:00 EST, Route to Pharmacy Electronically, [facility], 162.56, cm, 02/12/19 10:36:00 EDT, Height [...] Active Underweight(Confirmed) Active Vitamin D deficiency(Confirmed) Active 03833; repeat 2020 2colo 2006 nl, repeat 2015 3Colonoscopy 2016 positive polyp, repeat 2020. 4colo 2015 Social History Social History Type Response Smoking Status Never smoker entered on: 02/01/16 Sex
--- OUTSIDE RECORDS SUMMARY | 2024-04-02 09:39 | XMS_ITS | Continuity of Care Document ---
Author Organization [facility] Todd lt Address [address] [place] [address]- Care Team Providers Care Manual Machinist Name Role Phone Schuyler Crane MD Primary Care Physician [facility] 09[facility]20 - 10/08/20 [facility] Adult [address] [place] [address]- Allergies, Adverse Reactions, Alerts Substance Reaction Severity [...] 5 Refills, Soft Stop, 04/03/20 16:18:00 EDT, [facility], 162.56, cm, 02/24/20 9:30:00 EDT, Height Start Date: 04/03/20 Status: Ordered amLODIPine 10 mg oral tablet 10 mg, 1, tablet, By Mouth, Daily, # 90 tablet, Refills 1, Tot. Refills 1, Soft Stop, 10/08/20 8:13:00 EST, Route to Pharmacy Electronically, [facility], 162.56, cm, 02/24/20 9:30:00 EDT, Height Start Date: 10/08/20 Status: Ordered ANTACID 500 MG CHEWABLE TAB ANTACID 500 MG CHEWABLE TAB, See Instructions, # 90 each, Refills 3, Tot. Refills 3, Maintenance, TAKE 1 TABLET PO TID FOR OSTEOPOROSIS. MAY CRUSH TABLET PER DR ROSA MARIA CRUZ [phone], 07/20/18 12:11:49EDT, Compound Start Date: 07/20/18 Status: Ordered Bisco-Lax 10 mg rectal suppository See Instructions, INSERT 1 SUPP (10MG) INTO RECTUM NEEDED IF MILK OF MAGNESIA INEFFECTIVE AFTER 8 HRS/BISAC- EVAC EQUIVALENT/ IF SUPPOSITORY INEFFECTIVE AF, # 7 supp, 11 Refills, Acute, [facility], 162.56, cm, 02/24/20 9:30:00 EDT, Height Start Date: 03/30/20 Status: Ordered Blood Pressure Monitor See Instructions, 1, 0, 0, 06/11/07 11:11:37, PRN, HTN, ADS OPPTHS, [facility] [id number] [place] [address] Start Date: 06/11/07 Status: Ordered calcium carbonate 500 mg (200 mg elemental calcium) oral tablet, chewable 500 mg, 1, tablet, By Mouth, 3 times a day, PER DR CRANE, # 90 tablet, Refills 11, Tot. Refills 11, Maintenance, 12/09/19 14:35:00 EDT, Route to Pharmacy Electronically, [facility], 162.56, cm, 02/12/19 10:36:00 EDT, Height [...] Gm, 11 Refills, Maintenance, 08/07/20 11:11:00 EST, [facility], 30, USE 1/4 INCH OF GEL TO BRUSH TEETH DAILY IN THE EVENING / BRUSH T... Start Date: 08/07/20 Status: Ordered docusate sodium 100 mg oral capsule 1 capsule, By Mouth, 2 times a day, # 60 capsule, 5 Refills, Maintenance, 07/30/20 15:26:00 EST, [facility], 162.56, cm, 02/24/20 9:30:00 EDT, Height Start Date: 07/30/20 Status: Ordered EARWAX TREATMENT DROPS 6.5% EARWAX TREATMENT DROPS 6.5%, See Instructions, # 1 each, Refills 11, Tot. Refills 11, Maintenance, USE DIRECTED FAX [phone], 10/01/19 11:14:00 EST, [facility] Compound Start Date: [...] TAKE 1 TABLET BY MOUTH DAILY (VITAMIN), [address] [place] [address], Constant Indicator, MILLITRIUM TABLET Start Date: 06/20/08 [...] bid prn nasal dryness PER DAWIT STOREY [employer] SH[employer] REPAIRMAN-C FAX [phone], 11/02/18 14:15:30 EST, Compound Start Date: 11/02/18 Status: Ordered Ocuflox 0.3% solution 2 drops, Eyes, Both, 4 times a day, # 10 mL, 0 Refills, Maintenance, 01/10/17 14:21:09, Ophth Solution, 2 drops Eyes, Both 4 times a day Start Date: 01/10/17 Status: Ordered Polysporin 500 u-37513 u/gm ointment See Instructions, APPLY A THIN LAYER TOPICALLY TWICE DAILY NEEDED TO RED, IRRITATED SKIN X 7 DAYS / SEE ANCILLARY ORDERS (BACITRACIN-POLYMYXIN OINTMENT), # 28.3 Gm, 5 Refills, Acute, [facility], 7, APPLY A THIN LAYER TOPICALLY TWICE DAILY N... Start Date: 03/30/20 Status: Ordered Polysporin 500 u-09905 u/gm ointment See Instructions, APPLY A THIN [...] tablet, 1 Refills, Maintenance, 09/08/20 10:55:00 EST, [facility], 162.56, cm, 02/24/20 9:30:00 EDT, Height [...] MG Q6H PRN PER DR CRANE FAX [phone], 02/01/19 9:46:36 EDT, [facility] Start Date: 02/01/19 [...] CAPLETBY MOUTH QD PER DR CRANE FAX [phone], 10/08/20 11:48:00 EST, [facility], 162.56, cm, 02/24/20 9:30:00 EDT, Height Start Date: 10/08/20 Status: Ordered Tinactin 1% spray 1 sprays, Topically, 2 times a day, # 120 mL, 1 Refills, Maintenance, 11/01/19 10:28:00 EST, [place], 1 sprays Topically 2 times a day, 162.56, cm, 02/12/19 10:36:00 EDT, Height Start Date: 11/01/19 Status: Ordered TUSSIN DM KAILYNIN DM, See Instructions, # 420 mL, Refills 1, Tot. Refills 1, Maintenance, 10 ML PO Q4H PRN FORCOUGH AT BEDTIME PER DR CRANE FAX [phone], 05/22/20 8:48:00 EDT, [facility], 162.56, cm, 02/24/20 9:30:00 EDT, Height Start Date: 05/22/20 Status: Ordered Tylenol 325 mg oral tablet 650 mg, 2, tablet, By Mouth, Every 4 hours, PER DR CRANE, # 168 tablet, Refills 5, Tot. Refills 5, Maintenance, 10/04/19 10:27:00 EST, Route to Pharmacy Electronically, [facility], 162.56, cm, 02/12/19 10:36:00 EDT, Height [...] Active Underweight(Confirmed) Active Vitamin D deficiency(Confirmed) Active 29780; repeat 2020 2colo 2006 nl, repeat 2015 3Colonoscopy 2016 positive polyp, repeat 2020. 4colo 2015 Social History Social History Type Response Smoking Status Never smoker entered on: 02/01/16 Sex
--- OUTSIDE RECORDS SUMMARY | 2024-04-02 09:39 | XMS_ITS | Continuity of Care Document ---
Author Organization [facility] Salvatore Todd lt Address [address] [place] [address]- Care Team Providers Care Test Borer Name Role Phone Schuyler Crane MD Primary Care Physician [facility] 03[facility]03[facility]22 - 04/02/22 [facility] Adult [address] [place] [address]- Allergies, Adverse Reactions, Alerts Substance Reaction Severity [...] Replace Required Details, Route to Pharmacy Electronically, [facility], 162.56, cm, 02/25/21 9:29:00 EDT, He... Start Date: 08/31/21 Status: Ordered amLODIPine 10 mg oral tablet See Instructions, TAKE 1 TABLET (10 MG) BY MOUTH DAILY IN AM FOR HYPERTENSION, # 30 tablet, 5 Refills, [facility], 162.56, cm, 03/24/22 10:31:00 EDT, Height Start Date: 04/01/22 Status: Ordered ANTACID 500 MG CHEWABLE TAB ANTACID 500 MG CHEWABLE TAB, See Instructions, # 90 each, Refills 3, Tot. Refills 3, Maintenance, TAKE 1 TABLET PO TID FOR OSTEOPOROSIS. MAY CRUSH TABLET PER DR CRANE FX [phone], 07/20/18 12:11:49EDT, Compound Start Date: 07/20/18 Status: Ordered benzonatate 100 mg oral capsule 1 capsule, By Mouth, 3 times a day, PRN NEEDED FOR COUGH / IF NO IMPROVEMENT IN 3 DAYS NOTIFY / IC, JAGRUTI, # 21 capsule, 0 Refills, [facility], 162.56, cm, 12/06/21 13:34:00 EDT, Height Start Date: 02/25/22 Status: Ordered bisacodyl 10 mg rectal suppository See Instructions, INSERT 1 SUPP (10MG) INTO RECTUM NEEDED IF MILK OF MAGNESIA INEFFECTIVE AFTER 8 HRS/BISAC- EVAC EQUIVALENT/ IF SUPPOSITORY INEFFECTIVE AFTER 4 HRS CALL , # 7 supp, 11 Refills, Acute, [facility], 162.56, cm, 02/25/21 9:29:00... Start Date: 04/15/21 Status: Ordered Blood Pressure Monitor See Instructions, 1, 0, 0, 06/11/07 11:11:37, PRN, HTN, ADS OPPTHS, [facility] [address] [address] Start Date: 06/11/07 Status: Ordered calcium carbonate 500 mg (200 mg elemental calcium) oral tablet, chewable See Instructions, TAKE 1 TABLET (500 MG) BY MOUTH 3 TIMES A DAY FOR OSTEOPOROSIS MAY CRUSH TABLET IC: CALCIUM CARBONATE, # 90 tablet, Refills 5, Instructions Replace Required Details, Route to Pharmacy Electronically, [facility], 162.56, cm, 11/23... Start Date: 02/25/22 Status: Ordered cetirizine 10 mg oral tablet 1 tablet, By Mouth, Daily in AM, FOR SEASONAL ALLERGIES FROM DECEMBER THROUGH JUNE (START 12/24) SEE ANCILLARY ORDERS., # 30 tablet, 5 Refills, [facility], 162.56, cm, 12/06/21 13:34:00 EDT, Height [...] 100 MG), # 60 capsule, 5 Refills, [facility], 162.56, cm, 12/06/21 13:34:00 EDT, Height Start Date: 01/13/22 Status: Ordered EARWAX TREATMENT DROPS 6.5% EARWAX TREATMENT DROPS 6.5%, See Instructions, # 1 each, Refills 11, Tot. Refills 11, Maintenance, USE DIRECTED FAX [phone], 12/02/20 14:40:00 EST, [facility], 162.56, cm, 02/24/20 9:30:00 EDT, Height Start Date: 12/02/20 Status: Ordered fluoride 1.1% topical gel See Instructions, USE 1/4 INCH OF GEL TO BRUSH TEETH DAILY IN THE EVENING / BRUSH THOROUGHLY ALONG GUMLINE IC: DENTAGEL, # 56 Gm, 11 Refills, [facility], 30, USE 1/4 INCH OF GEL [...] ORDER 30ML=2,400MG, # 300 mL, 5 Refills, [facility], [facility], 162.56, cm, 02/24/20 9:30:00 EDT, Height Start Date: 10/30/20 Status: Ordered MILLITRIUM TABLET See Instructions, 30, 11, 11, 06/20/08 13:07:29, TAKE 1 TABLET BY MOUTH DAILY (VITAMIN), [facility] [address] [place] [address], Constant Indicator, MILLITRIUM TABLET Start Date: 06/20/08 [...] bid prn nasal dryness PER DAWIT STOREY ELECT EQUIP MAINT ENG-C FAX [phone], 11/02/18 14:15:30 EST, [facility] Start Date: 11/02/18 Status: Ordered Ocuflox 0.3% solution 2 drops, Eyes, Both, 4 times a day, # 10 mL, 0 Refills, Maintenance, 01/10/17 14:21:09, Ophth Solution, 2 drops Eyes, Both 4 times a day Start Date: 01/10/17 Status: Ordered Polysporin 500 u-01695 u/gm ointment See Instructions, APPLY A THIN LAYER TOPICALLY TWICE DAILY NEEDED TO RED, IRRITATED SKIN X 7 DAYS / SEE ANCILLARY ORDERS (BACITRACIN-POLYMYXIN OINTMENT), # 28.3 Gm, 5 Refills, Maintenance, 04/14/21 14:39:00 EDT, [facility], 7, APPLY A THIN LAY... Start Date: 04/14/21 Status: Ordered pravastatin 40 mg oral tablet 1 tablet, By Mouth, Daily, IN PM FOR HYPERLIPIDEMIA., # 30 tablet, 5 Refills, [facility], 162.56, cm, 12/06/21 13:34:00 EDT, Height [...] MG Q6H PRN PER DR CRANE FAX [phone], 02/01/19 9:46:36 EDT, [facility] Start Date: 02/01/19 [...] CAPLETBY MOUTH QD PER DR CRANE FAX [phone], 10/08/20 11:48:00 EST, [facility], 162.56, cm, 02/24/20 [...] mL, 1 Refills, Maintenance, 12/01/20 8:15:00 EST, [place], 1 sprays Topically 2 times a day, 162.56, cm, 02/24/20 9:30:00 EDT, Height Start Date: 12/01/20 Status: Ordered JAMAL FATIMA, See Instructions, # 420 mL, Refills 1, Tot. Refills 1, Maintenance, 10 ML PO Q4H PRN FORCOUGH AT BEDTIME PER DR CRANE FAX [phone], 05/22/20 8:48:00 EDT, [facility], 162.56, cm, 02/24/20 [...] Seizure disorder(Confirmed) Active Vitamin D deficiency(Confirmed) Active 96530; repeat 2020 2colo 2006 nl, repeat 2015 3Colonoscopy 2016 positive polyp, repeat 2020. 4colo 2015 Social History Social History Type Response Smoking Status Never smoker entered on: 02/01/16 Sex
--- OUTSIDE RECORDS SUMMARY | 2024-04-02 09:39 | XMS_ITS | Continuity of Care Document ---
Author Organization [facility] Salvatore Todd lt Address [address] [place] [address]- Care Team Providers Care Risk Prevention Engineer Name Role Phone Schuyler Crane MD Primary Care Physician [phone] Encounter [facility] Date(s): 05/15/23 - 05/22/23 [facility] Adult [address] [place] [address]- Encounter Diagnosis Microcephaly(Discharge Diagnosis) - 05/15/23 Seizure disorder(Discharge Diagnosis) - 05/15/23 Status post-operative repair of closed fracture of left hip(Discharge Diagnosis) - 05/15/23 Pressure injury of skin(Discharge Diagnosis) - 05/15/23 Hypertension(Discharge Diagnosis) - 05/15/23 Hypercholesterolemia(Discharge Diagnosis) - 05/15/23 Attending Physician: Schuyler Crane MD Allergies, Adverse [...] 08/25/04 G iven 1Result Comment: Td - [facility]# [id number] 2Result Comment: PCV23 - [facility]# [id number] 3Result Comment: [facility]# [id number] 4Result Comment: [10/28/2016] pharmacy 5Admin Note: given [...] 10/14/22 8:03:00 EST, Route to Pharmacy Electronically, [facility], 162.56, cm, 07/04/22 8:33:00 EDT, Height Start Date: 10/14/22 Status: Ordered All Day Allergy 10 mg oral tablet See Instructions, TAKE 1 TABLET (10 MG) BY MOUTH DAILY IN THE AM FOR SEASONAL ALLERGIES FROM DECEMBER THROUGH JUNE (START 12/24 / END 07/25) SEE ANCILLARY ORDERS, # 30 tablet, 2 Refills, Maintenance, 04/13/23 14:33:00 EDT, [facility], 162.56, cm, 0... Start Date: 04/13/23 Status: Ordered amLODIPine 10 mg oral tablet 1 tablet, By Mouth, Daily in AM, FOR HYPERTENSION., # 30 tablet, 5 Refills, Maintenance, 04/19/23 23:11:00 EDT, [facility], 162.56, cm, 04/10/23 7:35:00 EDT, Height Start Date: 04/19/23 Status: Ordered ANTACID 500 MG CHEWABLE TAB ANTACID 500 MG CHEWABLE TAB, See Instructions, # 90 each, Refills 3, Tot. Refills 3, Maintenance, TAKE 1 TABLET PO TID FOR OSTEOPOROSIS. MAY CRUSH TABLET PER DR ROSA MARIA CRUZ [phone], 07/20/18 12:11:49EDT, Compound Start Date: 07/20/18 Status: Ordered benzonatate 100 mg oral capsule 1 capsule, By Mouth, 3 times a day, PRN NEEDED FOR COUGH / IF NO IMPROVEMENT IN 3 DAYS NOTIFY MD/ IC, JAGRUTI, # 21 capsule, 0 Refills, Maintenance, 02/17/23 8:57:00 EDT, [facility], 162.56, cm, 07/04/22 8:33:00 EDT, Height Start Date: 02/17/23 Status: Ordered bisacodyl 10 mg rectal suppository See Instructions, INSERT 1 SUPP (10MG) INTO RECTUM NEEDED IF MILK OF MAGNESIA INEFFECTIVE AFTER 8 HRS/BISAC- EVAC EQUIVALENT/ IF SUPPOSITORY INEFFECTIVE AFTER 4 HRS CALL MD, # 7 supp, 11 Refills, Acute, [facility], 162.56, cm, 02/25/21 9:29:00... Start Date: 04/15/21 Status: Ordered Blood Pressure Monitor See Instructions, 1, 0, 0, 06/11/07 11:11:37, PRN, HTN, ADS OPPTHS, [facility] [place] [place] [id number] Start Date: 06/11/07 Status: Ordered calcium carbonate 500 mg (200 mg elemental calcium) oral tablet, chewable 1, tablet, By Mouth, 3 times a day, CRUSH. IC: CALCIUM CARBONATE, # 90 tablet, Refills 5, Maintenance, 02/17/23 8:57:00 EDT, Route to Pharmacy Electronically, [facility], 162.56, cm, 07/04/22 8:33:00 EDT, Height Start Date: 02/17/23 Status: Ordered carbamide peroxide 6.5% otic solution See Instructions, INSTILL 4 DROPS INTO EACH EAR TWICE DAILY FOR 5 DAYS EACH MONTH / IC: CARBAMIDE PEROXIDE (EAR DROPS 6.5%), # 15 mL, 11 Refills, Maintenance, 08/21/22 7:49:00 EST, [facility], 30, INSTILL 4 DROPS INTO EACH [...] capsule, 5 Refills, Maintenance, 10/20/22 6:09:00 EST, [facility], 162.56, cm, 07/04/22 8:33:00 EDT, Height Start Date: 10/20/22 Status: Ordered EARWAX TREATMENT DROPS 6.5% EARWAX TREATMENT DROPS 6.5%, See Instructions, # 1 each, Refills 11, Tot. Refills 11, Maintenance, USE DIRECTED FAX [phone], 12/02/20 14:40:00 EST, [facility], 162.56, cm, 02/24/20 9:30:00 EDT, Height Start Date: 12/02/20 Status: Ordered fluoride 1.1% topical gel See Instructions, USE 1/4 INCH OF GEL TO BRUSH TEETH DAILY IN THE EVENING / BRUSH THOROUGHLY ALONG GUMLINE IC: DENTAGEL, # 56 Gm, 11 Refills, [facility], 30, USE 1/4 INCH OF GEL TO BRUSH TEETH DAILY IN THE EVENING / BRUSH THOROUGHLY ALONG GUMLINE... Start Date: 01/28/22 Status: Ordered Carolyn-jag 8.6 mg oral tablet 1 tablet, By Mouth, Daily in PM, FOR CONSTIPATION / SEE MILK OF MAG ORDERS / IC: SENNA 8.6 MG, # 15tablet, 6 Refills, Maintenance, 10/14/22 8:03:00 EST, [facility], 162.56, cm, 07/04/22 8:33:00EDT, Height Start Date: 10/14/22 Status: Ordered Hospital Bed See Instructions, # 1 each, Refills 0, Tot. Refills 0, Maintenance, [facility] DX: Left hip fracture, seizure dis, impulse control disorder, atypical autism. Duration ongoing NPI#[id number] Height: 5'6 Weight: 137lbs, 03/22/23 13:55:... Start [...] TAKE 1 TABLET BY MOUTH DAILY (VITAMIN), [facility] [address] [place] [address], Constant Indicator, MILLITRIUM TABLET Start Date: 06/20/08 Status: Ordered OCEAN SALINE NASAL MIST OCEAN SALINE NASAL MIST, See Instructions, # 1 each, Refills 2, Tot. Refills 2, Maintenance, use bid prn nasal dryness, 11/06/18 9:57:36 EST, Compound Start Date: 11/06/18 Status: Ordered Polysporin 500 u-24736 u/gm ointment See Instructions, APPLY A THIN LAYER TOPICALLY TWICE DAILY NEEDED TO RED, IRRITATED SKIN X 7 DAYS / SEE ANCILLARY ORDERS (BACITRACIN-POLYMYXIN OINTMENT), # 28.3 Gm, 5 Refills, Maintenance, 04/18/23 8:59:00 EDT, [facility], 7, APPLY A THIN LAYE... Start Date: 04/18/23 Status: Ordered pravastatin 40 mg oral tablet See Instructions, TAKE 1 TABLET (40 MG) BY MOUTH DAILY IN PM FOR HYPERLIPIDEMIA, # 30 tablet, 5 Refills, Maintenance, 02/17/23 13:00:00 EDT, [facility], 162.56, cm, 07/04/22 8:33:00 EDT, Height Start Date: 02/17/23 Status: Ordered Profola oral tablet 1 tablet, By Mouth, Daily, # 30 tablet, 11 Refills, Maintenance, 05/19/23 10:41:00 EDT, [facility], Partial fill upon patient request [...] (SUPHEDRIN EQUIVALENT), # 30 tablet, 11 Refills, [facility], 162.56, cm, 03/24/22 10:31:00 EDT, Height Start Date: 04/22/22 Status: Ordered SUDOGEST 30 MG TABLETS SUDOGEST 30 MG TABLETS, See Instructions, # 30 each, Refills 11, Tot. Refills 11, Maintenance, TAKE30 MG Q6H PRN PER DR CRANE FAX [phone], 02/01/19 9:46:36 EDT, Compound Start Date: 02/01/19 [...] mL, 1 Refills, Maintenance, 12/01/20 8:15:00 EST, [place], 1 sprays Topically 2 times a day, 162.56, cm, 02/24/20 9:30:00 EDT, Height Start Date: 12/01/20 Status: Ordered JAMAL FATIMA, See Instructions, # 420 mL, Refills 1, Tot. Refills 1, Maintenance, 10 ML PO Q4H PRN FORCOUGH AT BEDTIME PER DR CRANE FAX [phone], 05/22/20 8:48:00 EDT, [facility], 162.56, cm, 02/24/20 [...] Confirmed Active Vitamin D deficiency Confirmed Active 10709; repeat 2020 2colo 2005 nl, repeat 2015 3Colonoscopy 2016 positive polyp, repeat 2020. 4colo 2016 Diagnosis Diagnosis Type Effective Dates Health Status Clinical Service Informant Microcephaly Discharge Diagnosis 05/15/23 Seizure disorder Discharge Diagnosis 05/15/23 Status post-operative repair of closed fracture of left hip Discharge Diagnosis 05/15/23 Pressure injury of skin Discharge Diagnosis 05/15/23 Hypertension Discharge Diagnosis 05/15/23 Hypercholesterolemia Discharge Diagnosis 05/15/23 Vital Signs Most recent to oldest [Reference Range]: 1 Height 162.56 cm (05/15/23 9:41 AM) Weight 59.0 kg (05/15/23 9:41 AM) Pulse Rate [55-90 bpm] 72 bpm (05/15/23 9:41 AM) Body Mass Index [18.5-24.99 kg/m2] 22.33 kg/m2 (05/15/23 9:41 AM) Blood Pressure [90-138/55-84 mm Hg] 139/ 55mm Hg *H* (05/15/23 9:41 AM) Respiratory Rate [16-30 br/min] 16 br/mi n (05/15/23 9:41 AM) Mode of Delivery (Oxygen) Room air (05/15/23 9:41 AM) Blood pressure sites Arm, left (05/15/23 9:41 AM) Temperature Route Oral (05/15/23 9:41 AM) Weight Obtained Via Patient/family state d (05/15/23 9:41 AM) Social History Social History Type Response Smoking Status Never smoker entered on: 02/01/16 Sex Patient Care team information Care Team Personnel Name: Schuyler Crane MD Position: [facility] Physician - Primary Care Member Role: PCP Address: Address: [address] [place] [address]- Care Team Related Persons Name: ELLE ALMEIDA Address: home [address] [place] [address] Name: ZAK SHELL
--- OUTSIDE RECORDS SUMMARY | 2024-04-02 09:39 | XMS_ITS | Continuity of Care Document ---
Author Organization [facility] Mike Chase Todd lt Address [address] [place] [address]- Care Team Providers Care It Auditor Name Role Phone Schuyler Crane MD Primary Care Physician Encounter [facility] Date(s): 10/26/23 - 11/25/[address] [facility] Adult [address] [place] [address]- Allergies, Adverse Reactions, Alerts Substance Reaction Severity [...] 08/25/04 G cristy 1Result Comment: Td - [facility]# [id number] 2Result Comment: PCV23 - [facility]# [id number] 3Result Comment: [facility]# [id number] 4Result Comment: [10/28/2016] pharmacy 5Admin Note: given [...] 10/14/22 8:03:00 EST, Route to Pharmacy Electronically, [facility], 162.56, cm, 07/04/22 8:33:00 EDT, Height Start Date: 10/14/22 Status: Ordered All Day Allergy 10 mg oral tablet See Instructions, TAKE 1 TABLET (10 MG) BY MOUTH DAILY IN THE AM FOR SEASONAL ALLERGIES FROM DECEMBER THROUGH JUNE (START 12/24 / END 07/25) SEE ANCILLARY ORDERS, # 30 tablet, 2 Refills, Maintenance, 04/13/23 14:33:00 EDT, [facility], 162.56, cm, 0... Start Date: 04/13/23 Status: Ordered amLODIPine 10 mg oral tablet 1 tablet, By Mouth, Daily in AM, FOR HYPERTENSION., # 30 tablet, 5 Refills, Maintenance, 10/25/23 0:22:00 EST, [facility], 162.56, cm, 10/03/23 9:00:00 EST, Height Start Date: 10/25/23 Status: Ordered ANTACID 500 MG CHEWABLE TAB ANTACID 500 MG CHEWABLE TAB, See Instructions, # 90 each, Refills 3, Tot. Refills 3, Maintenance, TAKE 1 TABLET PO TID FOR OSTEOPOROSIS. MAY CRUSH TABLET PER DR ROSA MARIA CRUZ [phone], 07/20/18 12:11:49EDT, Compound Start Date: 07/20/18 Status: Ordered benzonatate 100 mg oral capsule 1 capsule, By Mouth, 3 times a day, PRN NEEDED FOR COUGH / IF NO IMPROVEMENT IN 3 DAYS NOTIFY MD/ IC, JAGRUTI, # 21 capsule, 0 Refills, Maintenance, 10/05/23 12:01:00 EST, [facility], 162.56, cm, 10/03/23 9:00:00 EST, Height Start Date: 10/05/23 Status: Ordered bisacodyl 10 mg rectal suppository See Instructions, INSERT 1 SUPP (10MG) INTO RECTUM NEEDED IF MILK OF MAGNESIA INEFFECTIVE AFTER 8 HRS/BISAC- EVAC EQUIVALENT/ IF SUPPOSITORY INEFFECTIVE AFTER 4 HRS CALL MD, # 7 supp, 11 Refills, Acute, [facility], 162.56, cm, 02/25/21 9:29:00... Start Date: 04/15/21 Status: Ordered Blood Pressure Monitor See Instructions, 1, 0, 0, 06/11/07 11:11:37, PRN, HTN, ADS OPPTHS, [facility] [place] [address] Start Date: 06/11/07 Status: Ordered calcium carbonate 500 mg (200 mg elemental calcium) oral tablet, chewable 1, tablet, By Mouth, 3 times a day, CRUSH. IC: CALCIUM CARBONATE, # 90 tablet, Refills 5, Maintenance, 10/02/23 8:50:00 EST, Route to Pharmacy Electronically, [facility], 162.56, cm, 09/19/23 10:28:00 EST, Height Start Date: 10/02/23 Status: Ordered carbamide peroxide 6.5% otic solution See Instructions, INSTILL 4 DROPS INTO EACH EAR TWICE DAILY FOR 5 DAYS EACH MONTH / IC: CARBAMIDE PEROXIDE (EAR DROPS 6.5%), # 15 mL, 11 Refills, Maintenance, 09/01/23 9:17:00 EST, [facility], 30, INSTILL 4 DROPS INTO EACH [...] capsule, 5 Refills, Maintenance, 11/23/23 20:00:00 EST, [facility], 162.56, cm, 10/03/23 9:00:00 EST, Height Start Date: 11/23/23 Status: Ordered EARWAX TREATMENT DROPS 6.5% EARWAX TREATMENT DROPS 6.5%, See Instructions, # 1 each, Refills 11, Tot. Refills 11, Maintenance, USE DIRECTED FAX [phone], 12/02/20 14:40:00 EST, [facility], 162.56, cm, 02/24/20 9:30:00 EDT, Height Start Date: 12/02/20 Status: Ordered fluoride 1.1% topical gel See Instructions, USE 1/4 INCH OF GEL TO BRUSH TEETH DAILY IN THE EVENING / BRUSH THOROUGHLY ALONG GUMLINE IC: DENTAGEL, # 56 Gm, 11 Refills, Maintenance, 09/21/23 16:44:00 EST, [facility], 30, USE 1/4 INCH OF GEL TO BRUSH TEETH DAILY IN THE EVEN... Start Date: 09/21/23 Status: Ordered Carolyn-jag 8.6 mg oral tablet 1 tablet, By Mouth, Daily in PM, FOR CONSTIPATION / SEE MILK OF MAG ORDERS / IC: SENNA 8.6 MG, # 15tablet, 6 Refills, Maintenance, 10/14/22 8:03:00 EST, [facility], 162.56, cm, 07/04/22 8:33:00EDT, Height Start Date: 10/14/22 Status: Ordered Hospital Bed See Instructions, # 1 each, Refills 0, Tot. Refills 0, Maintenance, [facility] DX: Left hip fracture, seizure dis, impulse control disorder, atypical autism. Duration ongoing NPI#[id number] Height: 5'6 Weight: 137lbs, 03/22/23 13:55:... Start Date: 03/22/23 Status: Ordered Milk of Magnesia 8% oral suspension See Instructions, TAKE 2 TABLESPOONFULS (30 ML) BY MOUTH AT BEDTIME NEEDED FOR CONSTIPATION ON DAY 3 OF NO BM / SEE BISCOLAX SUPP ORDER 30ML=2,400MG, # 300 mL, 5 Refills, Acute, [facility], 162.56, cm, 02/24/20 9:30:00 EDT, Height Start Date: 10/30/20 Status: Ordered MILLITRIUM TABLET See Instructions, 30, 11, 11, 06/20/08 13:07:29, TAKE 1 TABLET BY MOUTH DAILY (VITAMIN), [facility] [address] [place] [id number], Constant Indicator, MILLITRIUM TABLET Start Date: 06/20/08 [...] tablet, 0 Refills, Maintenance, 10/03/23 8:50:00 EST, [facility], Partial fill upon patient request if the prescription... Start Date: 10/03/23 Status: Ordered Polysporin 500 u-16832 u/gm ointment See Instructions, APPLY A THIN LAYER TOPICALLY TWICE DAILY NEEDED TO RED, IRRITATED SKIN X 7 DAYS / SEE ANCILLARY ORDERS (BACITRACIN-POLYMYXIN OINTMENT), # 28.3 Gm, 5 Refills, Maintenance, 04/18/23 8:59:00 EDT, [facility], 7, APPLY A THIN LAYE... Start Date: 04/18/23 Status: Ordered pravastatin 40 mg oral tablet 1 tablet, By Mouth, Daily, IN PM FOR HYPERLIPIDEMIA., # 30 tablet, 5 Refills, Maintenance, 248:50:00 EST, [facility], 162.56, cm, 09/19/23 10:28:00 EST, Height Start Date: 10/02/23 Status: Ordered Profola oral tablet 1 tablet, By Mouth, Daily, # 30 tablet, 11 Refills, Maintenance, 05/19/23 10:41:00 EDT, [facility], Partial fill upon patient request if [...] tablet, 11 Refills, Maintenance, 10/26/23 8:49:00 EST, [facility], 162.56, cm, 10/03/23 9:00:00 EST, Height Start Date: 10/26/23 Status: Ordered SUDOGEST 30 MG TABLETS SUDOGEST 30 MG TABLETS, See Instructions, # 30 each, Refills 11, Tot. Refills 11, Maintenance, TAKE30 MG Q6H PRN PER DR CRANE FAX [phone], 02/01/19 9:46:36 EDT, [facility] Start Date: 02/01/19 Status: Ordered Thera oral tablet 1 tablet, By Mouth, Daily in AM, VITAMIN., # 30 tablet, 5 Refills, Maintenance, 10/25/23 10:03:00 EST, [facility], 30, TAKE 1 TABLET BY MOUTH [...] mL, 1 Refills, Maintenance, 12/01/20 8:15:00 EST, [place], [facility], 1 sprays Topically 2 times a day, 162.56, cm, 02/24/20 9:30:00 EDT, Height Start Date: 12/01/20 Status: Ordered CHAKASSIN KUSHAL AVINAIN KUSHAL, See Instructions, # 420 mL, Refills 1, Tot. Refills 1, Maintenance, 10 ML PO Q4H PRN FORCOUGH AT BEDTIME PER DR CRANE FAX [phone], 05/22/20 8:48:00 EDT, [facility], 162.56, cm, 02/24/20 [...] Confirmed Active Vitamin D deficiency Confirmed Active 88867; repeat 2020 2colo 2005 nl, repeat 2015 3Colonoscopy 2016 positive polyp, repeat 2020. 4colo 2015 Social History Social History Type Response Smoking Status Never smoker entered on: 02/01/16 Sex Patient Care team information Care Team Personnel Name: Rosa Maria HUSTON, Schuyler Pope Position: [facility] Physician - Primary Care Member Role: PCP Address: Address: [address] [place] [address] [place] [address]- Care Team Related Persons Name: ELLE ALMEIDA Address: home [address] [place] [id number] Name: ZAK SHELL
--- OUTSIDE RECORDS SUMMARY | 2024-04-02 09:40 | XMS_ITS | Continuity of Care Document ---
Author Organization [facility] Salvatore Todd lt Address [address] [place] [address]- Care Team Providers Care Chief Supply Chain Officer Name Role Phone Schuyler Crane MD Primary Care Physician [facility] Date[facility]): 02/24[facility]23 - 03/26/23 [facility] Adult [address] [place] [address]- Attending Physician: Admtr, Ar8 Allergies, Adverse Reactions, [...] 08/25/04 G sunitaen 1Result Comment: Td - [facility]# [id number] 2Result Comment: PCV23 - [facility]# [id number] 3Result Comment: [facility]# [phone] 4Result Comment: [10/28/2016] pharmacy 5Admin Note: given [...] 10/14/22 8:03:00 EST, Route to Pharmacy Electronically, [facility], 162.56, cm, 07/04/22 8:33:00 EDT, Height Start Date: 10/14/22 Status: Ordered All Day Allergy 10 mg oral tablet See Instructions, TAKE 1 TABLET (10 MG) BY MOUTH DAILY IN THE AM FOR SEASONAL ALLERGIES FROM DECEMBER THROUGH JUNE (START 12/24 / END 07/25) SEE ANCILLARY ORDERS, # 30 tablet, 2 Refills, Maintenance, 07/22/22 15:15:00 EDT, [facility], 162.56, cm, 1... Start Date: 07/22/22 Status: Ordered amLODIPine 10 mg oral tablet See Instructions, TAKE 1 TABLET (10 MG) BY MOUTH DAILY IN AM FOR HYPERTENSION, # 30 tablet, 5 Refills, 09/29/22 11:37:00 EST, [facility], 162.56, cm, 07/04/22 8:33:00 EDT, Height Start Date: 09/29/22 Status: Ordered ANTACID 500 MG CHEWABLE TAB ANTACID 500 MG CHEWABLE TAB, See Instructions, # 90 each, Refills 3, Tot. Refills 3, Maintenance, TAKE 1 TABLET PO TID FOR OSTEOPOROSIS. MAY CRUSH TABLET PER DR ROSA MARIA CRUZ [phone], 07/20/18 12:11:49EDT, Compound Start Date: 07/20/18 Status: Ordered benzonatate 100 mg oral capsule 1 capsule, By Mouth, 3 times a day, PRN NEEDED FOR COUGH / IF NO IMPROVEMENT IN 3 DAYS NOTIFY MD/ IC, JAGRUTI, # 21 capsule, 0 Refills, Maintenance, 02/17/23 8:57:00 EDT, [facility], 162.56, cm, 07/04/22 8:33:00 EDT, Height Start Date: 02/17/23 Status: Ordered bisacodyl 10 mg rectal suppository See Instructions, INSERT 1 SUPP (10MG) INTO RECTUM NEEDED IF MILK OF MAGNESIA INEFFECTIVE AFTER 8 HRS/BISAC- EVAC EQUIVALENT/ IF SUPPOSITORY INEFFECTIVE AFTER 4 HRS CALL MD, # 7 supp, 11 Refills, Acute, [facility], 162.56, cm, 02/25/21 9:29:00... Start Date: 04/15/21 Status: Ordered Blood Pressure Monitor See Instructions, 1, 0, 0, 06/11/07 11:11:37, PRN, HTN, ADS OPPTHS, [facility] [place] [address] Start Date: 06/11/07 Status: Ordered calcium carbonate 500 mg (200 mg elemental calcium) oral tablet, chewable 1, tablet, By Mouth, 3 times a day, CRUSH. IC: CALCIUM CARBONATE, # 90 tablet, Refills 5, Maintenance, 02/17/23 8:57:00 EDT, Route to Pharmacy Electronically, [facility], 162.56, cm, 07/04/22 8:33:00 EDT, Height Start Date: 02/17/23 Status: Ordered carbamide peroxide 6.5% otic solution See Instructions, INSTILL 4 DROPS INTO EACH EAR TWICE DAILY FOR 5 DAYS EACH MONTH / IC: CARBAMIDE PEROXIDE (EAR DROPS 6.5%), # 15 mL, 11 Refills, Maintenance, 08/21/22 7:49:00 EST, [facility], 30, INSTILL 4 DROPS INTO EACH [...] capsule, 5 Refills, Maintenance, 10/20/22 6:09:00 EST, [facility], 162.56, cm, 07/04/22 8:33:00 EDT, Height Start Date: 10/20/22 Status: Ordered EARWAX TREATMENT DROPS 6.5% EARWAX TREATMENT DROPS 6.5%, See Instructions, # 1 each, Refills 11, Tot. Refills 11, Maintenance, USE DIRECTED FAX [phone], 12/02/20 14:40:00 EST, [facility], 162.56, cm, 02/24/20 9:30:00 EDT, Height Start Date: 12/02/20 Status: Ordered fluoride 1.1% topical gel See Instructions, USE 1/4 INCH OF GEL TO BRUSH TEETH DAILY IN THE EVENING / BRUSH THOROUGHLY ALONG GUMLINE IC: DENTAGEL, # 56 Gm, 11 Refills, [facility], 30, USE 1/4 INCH OF GEL TO BRUSH TEETH DAILY IN THE EVENING / BRUSH THOROUGHLY ALONG GUMLINE... Start Date: 01/28/22 Status: Ordered Carolyn-jag 8.6 mg oral tablet 1 tablet, By Mouth, Daily in PM, FOR CONSTIPATION / SEE MILK OF MAG ORDERS / IC: SENNA 8.6 MG, # 15tablet, 6 Refills, Maintenance, 10/14/22 8:03:00 EST, [facility], 162.56, cm, 07/04/22 8:33:00EDT, Height Start [...] impulse control disorder, atypical autism. Duration ongoing NPI#[id number] Height: 5'6 Weight: 137lbs, 03/22/23 13:55:... Start Date: 03/22/23 Status: Ordered Milk of Magnesia 8% oral suspension See Instructions, TAKE 2 TABLESPOONFULS (30 ML) BY MOUTH AT BEDTIME NEEDED FOR CONSTIPATION ON DAY 3 OF NO BM / SEE BISCOLAX SUPP ORDER 30ML=2,400MG, # 300 mL, 5 Refills, Acute, [facility], 162.56, cm, 02/24/20 9:30:00 EDT, Height Start Date: 10/30/20 Status: Ordered MILLITRIUM TABLET See Instructions, 30, 11, 11, 06/20/08 13:07:29, TAKE 1 TABLET BY MOUTH DAILY (VITAMIN), [facility] [address] [place] [address], Constant Indicator, MILLITRIUM TABLET Start Date: 06/20/08 [...] each nostril bid prn nasal dryness PER DWAIT STOREY YOGA INSTRUCTOR-C FAX [phone], 11/02/18 14:15:30 EST, Compound Start Date: 11/02/18 Status: Ordered Ocuflox 0.3% solution 2 drops, Eyes, Both, 4 times a day, # 10 mL, 0 Refills, Maintenance, 01/10/17 14:21:09, Ophth Solution, 2 drops Eyes, Both 4 times a day Start Date: 01/10/17 Status: Ordered Polysporin 500 u-82478 u/gm ointment See Instructions, APPLY A THIN LAYER TOPICALLY TWICE DAILY NEEDED TO RED, IRRITATED SKIN X 7 DAYS / SEE ANCILLARY ORDERS (BACITRACIN-POLYMYXIN OINTMENT), # 28.3 Gm, 5 Refills, Maintenance, 04/14/21 14:39:00 EDT, [facility], 7, APPLY A THIN LAY... Start Date: 04/14/21 Status: Ordered pravastatin 40 mg oral tablet See Instructions, TAKE 1 TABLET (40 MG) BY MOUTH DAILY IN PM FOR HYPERLIPIDEMIA, # 30 tablet, 5 Refills, Maintenance, 02/17/23 13:00:00 EDT, [facility], 162.56, cm, 07/04/22 8:33:00 EDT, Height [...] (SUPHEDRIN EQUIVALENT), # 30 tablet, 11 Refills, [facility], 162.56, cm, 03/24/22 10:31:00 EDT, Height Start Date: 04/22/22 Status: Ordered SUDOGEST 30 MG TABLETS SUDOGEST 30 MG TABLETS, See Instructions, # 30 each, Refills 11, Tot. Refills 11, Maintenance, TAKE30 MG Q6H PRN PER DR CRANE FAX [phone], 02/01/19 9:46:36 EDT, Compound Start Date: 02/01/19 Status: Ordered THERA CAPLETS THERA CAPLETS, See Instructions, # 30 each, Refills 5, Tot. Refills 5, Maintenance, TAKE ONE CAPLETBY MOUTH QD PER DR CRANE FAX [phone], 10/08/20 11:48:00 EST, [facility], 162.56, cm, 02/24/20 9:30:00 EDT, Height Start Date: 10/08/20 Status: Ordered Thera oral tablet See Instructions, TAKE 1 TABLET BY MOUTH DAILY IN THE AM (VITAMIN), # 30 tablet, 5 Refills, Maintenance, 02/23/23 10:45:00 EDT, [facility], 30, TAKE 1 TABLET BY MOUTH [...] mL, 1 Refills, Maintenance, 12/01/20 8:15:00 EST, [place], [facility], 1 sprays Topically 2 times a day, 162.56, cm, 02/24/20 9:30:00 EDT, Height Start Date: 12/01/20 Status: Ordered JAMAL BERRY DM, See Instructions, # 420 mL, Refills 1, Tot. Refills 1, Maintenance, 10 ML PO Q4H PRN FORCOUGH AT BEDTIME PER DR CRANE FAX [phone], 05/22/20 8:48:00 EDT, [facility], 162.56, cm, 02/24/20 [...] Confirmed Active Vitamin D deficiency Confirmed Active 75919; repeat 2020 2colo 2006 nl, repeat 2015 3Colonoscopy 2016 positive polyp, repeat 2020. 4colo 2016 Procedures Procedure Date Related Diagnosis Body Site Status Colonoscopy 1 12/30/15 Completed 1repeat 2020 Vital Signs Most recent to oldest [Reference Range]: 1 Dry Weight 53 kg (02/04/15 8:06 AM) Social History Social History Type Response Smoking Status Never smoker entered on: 02/01/16 Sex Cardiology * Gely Spain: PERFORM Event Display: Cardiovascular Results Scanned Authored Date: [id number] * Gely Spain: PERFORM Event Display: Cardiovascular Results Scanned Authored Date: [id number] Laboratory * Lesli Mejia: PERFORM Event Display: Laboratory Results Scanned Authored Date: [id number] * Spain, Gely J.: PERFORM Event Display: Laboratory Results Scanned Authored Date: [id number] * Joann Bergeron: PERFORM Event Display: Laboratory Results Scanned Authored Date: [id number] Radiology * Rody Kilpatrick M: PERFORM Event Display: Radiology Results Scanned Authored Date: [id number] * Gely Spain: PERFORM Event Display: Radiology Results Scanned Authored Date: [id number] * Anay Wang: PERFORM Event Display: Radiology Results Scanned Authored Date: [id number] Patient Care team information Care Team Personnel Name: Rosa Maria HUSTON, Schuyler Pope Position: S Physician - Primary Care Member Role: PCP Address: Address: [address] [place] [address]- Care Team Related Persons Name: ELLE ALMEIDA Address: home [address] [place] [address] Name: ZAK SHELL
--- OUTSIDE RECORDS SUMMARY | 2024-04-02 09:40 | XMS_ITS | Continuity of Care Document ---
Author Organization [facility] Todd lt Address [address] [place] [address]- Care Team Providers Care Speed Operator Name Role Phone Schuyler Crane MD Primary Care Physician [phone] [facility]21 - 03/25/21 [facility] Adult [address] [place] [address]- Allergies, Adverse Reactions, Alerts Substance Reaction Severity [...] 10/08/20 8:13:00 EST, Route to Pharmacy Electronically, [facility], 162.56, cm, 02/24/20 9:30:00 EDT, Height Start Date: 10/08/20 Status: Ordered ANTACID 500 MG CHEWABLE TAB ANTACID 500 MG CHEWABLE TAB, See Instructions, # 90 each, Refills 3, Tot. Refills 3, Maintenance, TAKE 1 TABLET PO TID FOR OSTEOPOROSIS. MAY CRUSH TABLET PER DR CRANE FX [phone], 07/20/18 12:11:49EDT, Compound Start Date: 07/20/18 Status: Ordered Bisco-Lax 10 mg rectal suppository See Instructions, INSERT 1 SUPP (10MG) INTO RECTUM NEEDED IF MILK OF MAGNESIA INEFFECTIVE AFTER 8 HRS/BISAC- EVAC EQUIVALENT/ IF SUPPOSITORY INEFFECTIVE AF, # 7 supp, 11 Refills, Acute, [facility], 162.56, cm, 02/24/20 9:30:00 EDT, Height Start Date: 03/30/20 Status: Ordered Blood Pressure Monitor See Instructions, 1, 0, 0, 06/11/07 11:11:37, PRN, HTN, ADS OPPTHS, [facility] Adult [id number] [place] [id number] Start Date: 06/11/07 Status: Ordered calcium carbonate 500 mg (200 mg elemental calcium) oral tablet, chewable 500 mg, 1, tablet, By Mouth, 3 times a day, for 30 days, PER DR CRANE, # 90 tablet, Refills 3, Tot. Refills 3, Hard Stop 04/02/21 14:35:00 EDT, 12/03/20 14:35:00 EST, Route to Pharmacy Electronically, [facility], 162.56, cm, 02/24/20 9:30:00 EDT, H... Start Date: 12/03/20 Stop Date: 04/02/21 Status: Ordered calcium carbonate 500 mg (200 mg elemental calcium) oral tablet, chewable 500 mg, 1, tablet, By Mouth, 3 times a day, PER DR CRANE, # 90 tablet, Refills 5, Tot. Refills 5, Maintenance, 04/02/21 14:35:00 EDT, Route to Pharmacy Electronically, [facility], 162.56, cm, 02/25/21 9:29:00 EDT, Height Start Date: 04/02/21 Stop Date: 09/29/21 Status: Ordered cetirizine 10 mg oral tablet See Instructions, TAKE 1 TABLET (10 MG) BY MOUTH DAILY IN THE AM FOR SEASONAL ALLERGIES FROM DECEMBER THROUGH JUNE (START 12/24) SEE ANCILLARY ORDERS, # 30 tablet, 5 Refills, Maintenance, [facility], 162.56, cm, 02/25/21 9:29:00 EDT, He... Start Date: 02/25/21 Status: Ordered cetirizine 10 mg oral tablet 1 tablet, By Mouth, Daily in AM, FOR SEASONAL ALLERGIES FROM DECEMBER THROUGH JUNE (START 12/24) SEE ANCILLARY ORDERS., # 30 tablet, 5 Refills, Maintenance, 02/25/21 13:04:00 EDT, [facility], 162.56, cm, 02/25/21 9:29:00 EDT, Height [...] Gm, 11 Refills, Maintenance, 08/07/20 11:11:00 EST, [facility], 30, USE 1/4 INCH OF GEL TO BRUSH TEETH DAILY IN THE EVENING / BRUSH T... Start Date: 08/07/20 Status: Ordered docusate sodium 100 mg oral capsule 1 capsule, By Mouth, 2 times a day, # 60 capsule, 5 Refills, Maintenance, 01/28/21 15:23:00 EDT, [facility], 162.56, cm, 02/24/20 9:30:00 EDT, Height Start Date: 01/28/21 Status: Ordered EARWAX TREATMENT DROPS 6.5% EARWAX TREATMENT DROPS 6.5%, See Instructions, # 1 each, Refills 11, Tot. Refills 11, Maintenance, USE DIRECTED FAX [phone], 12/02/20 14:40:00 EST, [facility], 162.56, cm, 02/24/20 9:30:00 EDT, Height Start Date: 12/02/20 Status: Ordered Milk of Magnesia 8% oral suspension See Instructions, TAKE 2 TABLESPOONFULS (30 ML) BY MOUTH AT BEDTIME NEEDED FOR CONSTIPATION ON DAY 3 OF NO BM / SEE BISCOLAX SUPP ORDER 30ML=2,400MG, # 300 mL, 5 Refills, Acute, [facility], 162.56, cm, 02/24/20 9:30:00 EDT, Height Start Date: 10/30/20 Status: Ordered MILLITRIUM TABLET See Instructions, 30, 11, 11, 06/20/08 13:07:29, TAKE 1 TABLET BY MOUTH DAILY (VITAMIN), [facility] [address] [place] [id number], Constant Indicator, MILLITRIUM TABLET Start Date: 06/20/08 [...] each nostril bid prn nasal dryness PER DAIWT STOREY FLASK CLEANER-C FAX [phone], 11/02/18 14:15:30 EST, Compound Start Date: 11/02/18 Status: Ordered Ocuflox 0.3% solution 2 drops, Eyes, Both, 4 times a day, # 10 mL, 0 Refills, Maintenance, 01/10/17 14:21:09, Ophth Solution, 2 drops Eyes, Both 4 times a day Start Date: 01/10/17 Status: Ordered Polysporin 500 u-08875 u/gm ointment See Instructions, APPLY A THIN LAYER TOPICALLY TWICE DAILY NEEDED TO RED, IRRITATED SKIN X 7 DAYS / SEE ANCILLARY ORDERS (BACITRACIN-POLYMYXIN OINTMENT), # 28.3 Gm, 5 Refills, Acute, [facility], 7, APPLY A THIN LAYER TOPICALLY TWICE DAILY N... Start Date: 03/30/20 Status: Ordered Polysporin 500 u-61337 u/gm ointment See Instructions, APPLY A THIN LAYER TOPICALLY TWICE DAILY NEEDED TO RED, IRRITATED SKIN X 7 DAYS / SEE ANCILLARY ORDERS (BACITRACIN-POLYMYXIN OINTMENT), # 28.3 Gm, 5 Refills, Acute, [facility], 7, APPLY A THIN LAYER TOPICALLY TWICE DAILY N... Start Date: 03/30/20 Status: Ordered pravastatin 40 mg oral tablet 1 tablet, By Mouth, Daily, IN PM FOR HYPERLIPIDEMIA., # 30 tablet, 5 Refills, Maintenance, 03/05/2111:55:00 EDT, [facility], 162.56, cm, 02/25/21 9:29:00 EDT, Height [...] MG Q6H PRN PER DR CRANE FAX [phone], 02/01/19 9:46:36 EDT, Compound Start Date: 02/01/19 Status: Ordered Suphedrin 30 mg oral tablet See Instructions, TAKE 1 TAB (30 MG) BY MOUTH EVERY 6 HRS NEEDED FOR NASAL CONGESTION/ SEE ANCILLARY ORDERS (SUDOGEST EQUIVALENT), # 30 tablet, 11 Refills, Acute, [facility], 162.56, cm, 02/24/20 9:30:00 EDT, Height Start Date: 05/22/20 Status: Ordered THERA CAPLETS THERA CAPLETS, See Instructions, # 30 each, Refills 5, Tot. Refills 5, Maintenance, TAKE ONE CAPLETBY MOUTH QD PER DR CRANE FAX [phone], 10/08/20 11:48:00 EST, [facility], 162.56, cm, 02/24/20 9:30:00 EDT, Height Start Date: 10/08/20 Status: Ordered Thera oral tablet 1 tablet, By Mouth, Daily in AM, VITAMIN., # 30 tablet, 5 Refills, Maintenance, 03/05/21 11:55:00 EDT, [facility], 30, TAKE 1 TABLET BY MOUTH DAILY IN THE AM (VITAMIN), 162.56, cm, 02/25/21 9:29:00 EDT, Height Start Date: 03/05/21 Status: Ordered Tinactin 1% spray 1 sprays, Topically, 2 times a day, # 120 mL, 1 Refills, Maintenance, 12/01/20 8:15:00 EST, [place], [facility], 1 sprays Topically 2 times a day, 162.56, cm, 02/24/20 9:30:00 EDT, Height Start Date: 12/01/20 Status: Ordered TUSSIN DM TUSSIN DM, See Instructions, # 420 mL, Refills 1, Tot. Refills 1, Maintenance, 10 ML PO Q4H PRN FORCOUGH AT BEDTIME PER DR CRANE FAX [phone], 05/22/20 8:48:00 EDT, [facility], 162.56, cm, 02/24/20 9:30:00 EDT, Height Start Date: 05/22/20 Status: Ordered Tylenol 325 mg oral tablet 650 mg, 2, tablet, By Mouth, Every 4 hours, PER DR CRANE, # 168 tablet, Refills 5, Tot. Refills 5, Maintenance, 10/04/19 10:27:00 EST, Route to Pharmacy Electronically, [facility], 162.56, cm, 02/12/19 10:36:00 EDT, Height [...] Active Underweight(Confirmed) Active Vitamin D deficiency(Confirmed) Active 01837; repeat 2020 2colo 2006 nl, repeat 2015 3Colonoscopy 2016 positive polyp, repeat 2020. 4colo 2016 Social History Social History Type Response Smoking Status Never smoker entered on: 02/01/16 Sex
--- OUTSIDE RECORDS SUMMARY | 2024-04-02 09:40 | XMS_ITS | Continuity of Care Document ---
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 Refills 1, Soft Stop, 04/09/20 13:02:00 EDT, Route to Pharmacy Electronically, [facility], 162.56, cm, 02/24/20 9:30:00 EDT, Height Start Date: 04/09/20 Status: Ordered ANTACID 500 MG CHEWABLE TAB ANTACID 500 MG CHEWABLE TAB, See Instructions, # 90 each, Refills 3, Tot. Refills 3, Maintenance, TAKE 1 TABLET PO TID FOR OSTEOPOROSIS. MAY CRUSH TABLET PER DR ROSA MARIA CRUZ [phone], 07/20/18 12:11:49EDT, Compound Start Date: 07/20/18 Status: Ordered Bisco-Lax 10 mg rectal suppository See Instructions, INSERT 1 SUPP (10MG) INTO RECTUM NEEDED IF MILK OF MAGNESIA INEFFECTIVE AFTER 8 HRS/BISAC- EVAC EQUIVALENT/ IF SUPPOSITORY INEFFECTIVE AF, # 7 supp, 11 Refills, Acute, [facility], 162.56, cm, 02/24/20 9:30:00 EDT, Height Start Date: 03/30/20 Status: Ordered Blood Pressure Monitor See Instructions, 1, 0, 0, 06/11/07 11:11:37, PRN, HTN, ADS OPPTHS, [facility] [id number] [place] [address] Start Date: 06/11/07 Status: Ordered calcium carbonate 500 mg (200 mg elemental calcium) oral tablet, chewable 500 mg, 1, tablet, By Mouth, 3 times a day, PER DR CRANE, # 90 tablet, Refills 11, Tot. Refills 11, Maintenance, 12/09/19 14:35:00 EDT, Route to Pharmacy Electronically, [facility], 162.56, cm, 02/12/19 10:36:00 EDT, Height [...] Gm, 11 Refills, Maintenance, 08/07/20 11:11:00 EST, [facility], 30, USE 1/4 INCH OF GEL TO BRUSH TEETH DAILY IN THE EVENING / BRUSH T... Start Date: 08/07/20 Status: Ordered docusate sodium 100 mg oral capsule 1 capsule, By Mouth, 2 times a day, # 60 capsule, 5 Refills, Maintenance, 07/30/20 15:26:00 EST, [facility], 162.56, cm, 02/24/20 9:30:00 EDT, Height Start Date: 07/30/20 Status: Ordered EARWAX TREATMENT DROPS 6.5% EARWAX TREATMENT DROPS 6.5%, See Instructions, # 1 each, Refills 11, Tot. Refills 11, Maintenance, USE DIRECTED FAX [phone], 10/01/19 11:14:00 EST, [facility];, Compound Start Date: [...] 1 TABLET BY MOUTH DAILY (VITAMIN), [address] [place] [address], Constant Indicator, MILLITRIUM TABLET Start Date: 06/20/08 [...] bid prn nasal dryness PER DAWIT STOREY MUD MIXER-C FAX [phone], 11/02/18 14:15:30 EST, Compound Start Date: 11/02/18 Status: Ordered Ocuflox 0.3% solution 2 drops, Eyes, Both, 4 times a day, # 10 mL, 0 Refills, Maintenance, 01/10/17 14:21:09, Ophth Solution, 2 drops Eyes, Both 4 times a day Start Date: 01/10/17 Status: Ordered Polysporin 500 u-09299 u/gm ointment See Instructions, APPLY A THIN LAYER TOPICALLY TWICE DAILY NEEDED TO RED, IRRITATED SKIN X 7 DAYS / SEE ANCILLARY ORDERS (BACITRACIN-POLYMYXIN OINTMENT), # 28.3 Gm, 5 Refills, Acute, [facility], 7, APPLY A THIN LAYER TOPICALLY TWICE DAILY N... Start Date: 03/30/20 Status: Ordered Polysporin 500 u-37196 u/gm ointment See Instructions, APPLY A THIN [...] tablet, 1 Refills, Maintenance, 09/08/20 10:55:00 EST, [facility], 162.56, cm, 02/24/20 9:30:00 EDT, Height [...] MG Q6H PRN PER DR CRANE FAX [phone], 02/01/19 9:46:36 EDT, Compound Start Date: 02/01/19 [...] CAPLETBY MOUTH QD PER DR ROSA MARIA ANN [phone], 03/12/20 12:59:00 EDT, [facility], 162.56, cm, 02/24/20 9:30:00 EDT, Height Start Date: 03/12/20 Status: Ordered Tinactin 1% spray 1 sprays, Topically, 2 times a day, # 120 mL, 1 Refills, Maintenance, 11/01/19 10:28:00 EST, [place],[facility], 1 sprays Topically 2 times a day, 162.56, cm, 02/12/19 10:36:00 EDT, Height Start Date: 11/01/19 Status: Ordered TUSSIN DM KAILYNIN DM, See Instructions, # 420 mL, Refills 1, Tot. Refills 1, Maintenance, 10 ML PO Q4H PRN FORCOUGH AT BEDTIME PER DR CRANE FAX [phone], 05/22/20 8:48:00 EDT, [facility], 162.56, cm, 02/24/20 9:30:00 EDT, Height Start Date: 05/22/20 Status: Ordered Tylenol 325 mg oral tablet 650 mg, 2, tablet, By Mouth, Every 4 hours, PER DR CRANE, # 168 tablet, Refills 5, Tot. Refills 5, Maintenance, 10/04/19 10:27:00 EST, Route to Pharmacy Electronically, [facility], 162.56, cm, 02/12/19 10:36:00 EDT, Height [...] Active Underweight(Confirmed) Active Vitamin D deficiency(Confirmed) Active 98861; repeat 2020 2colo 2006 nl, repeat 2015 3Colonoscopy 2016 positive polyp, repeat 2020. 4colo 2015 Social History Social History Type Response Smoking Status Never smoker entered on: 02/01/16 Sex
--- OUTSIDE RECORDS SUMMARY | 2024-04-02 09:40 | XMS_ITS | Continuity of Care Document ---
Author Organization [facility] Salvatore Todd lt Address [address] [place] [address]- Care Team Providers Care Aviation Safety Officer Name Role Phone Schuyler Crane MD Primary Care Physician Encounter [facility] Date(s): 06/24/22 - 07/24/22 [facility] Adult [address] [place] [address]- Allergies, Adverse Reactions, Alerts Substance Reaction Severity [...] Adult (oldterm) 08/25/04 Vishal muniz 1Result Comment: [facility]# [id number] 2Result Comment: [10/28/2016] pharmacy 3Admin Note: given [...] Replace Required Details, Route to Pharmacy Electronically, [facility], 162.56, cm, 02/25/21 9:29:00 EDT, He... Start Date: 08/31/21 Status: Ordered All Day Allergy 10 mg oral tablet See Instructions, TAKE 1 TABLET (10 MG) BY MOUTH DAILY IN THE AM FOR SEASONAL ALLERGIES FROM DECEMBER THROUGH JUNE (START 12/24 / END 07/25) SEE ANCILLARY ORDERS, # 30 tablet, 2 Refills, Maintenance, 07/22/22 15:15:00 EDT, [facility], 162.56, cm, 1... Start Date: 07/22/22 Status: Ordered amLODIPine 10 mg oral tablet See Instructions, TAKE 1 TABLET (10 MG) BY MOUTH DAILY IN AM FOR HYPERTENSION, # 30 tablet, 5 Refills, [facility], 162.56, cm, 03/24/22 10:31:00 EDT, Height Start Date: 04/01/22 Status: Ordered ANTACID 500 MG CHEWABLE TAB ANTACID 500 MG CHEWABLE TAB, See Instructions, # 90 each, Refills 3, Tot. Refills 3, Maintenance, TAKE 1 TABLET PO TID FOR OSTEOPOROSIS. MAY CRUSH TABLET PER DR ROSA MARIA CRUZ [phone], 07/20/18 12:11:49EDT, Compound Start Date: 07/20/18 Status: Ordered benzonatate 100 mg oral capsule 1 capsule, By Mouth, 3 times a day, PRN NEEDED FOR COUGH / IF NO IMPROVEMENT IN 3 DAYS NOTIFY MD/ IC, JAGRUTI, # 21 capsule, 0 Refills, [facility], 162.56, cm, 12/06/21 13:34:00 EDT, Height Start Date: 02/25/22 Status: Ordered bisacodyl 10 mg rectal suppository See Instructions, INSERT 1 SUPP (10MG) INTO RECTUM NEEDED IF MILK OF MAGNESIA INEFFECTIVE AFTER 8 HRS/BISAC- EVAC EQUIVALENT/ IF SUPPOSITORY INEFFECTIVE AFTER 4 HRS CALL MD, # 7 supp, 11 Refills, Acute, [facility], 162.56, cm, 02/25/21 9:29:00... Start Date: 04/15/21 Status: Ordered Blood Pressure Monitor See Instructions, 1, 0, 0, 06/11/07 11:11:37, PRN, HTN, ADS OPPTHS, [facility] [id number] [place] [address] Start Date: 06/11/07 Status: Ordered calcium carbonate 500 mg (200 mg elemental calcium) oral tablet, chewable See Instructions, TAKE 1 TABLET (500 MG) BY MOUTH 3 TIMES A DAY FOR OSTEOPOROSIS MAY CRUSH TABLET IC: CALCIUM CARBONATE, # 90 tablet, Refills 5, Instructions Replace Required Details, Route to Pharmacy Electronically, [facility], 162.56, cm, 11/23... Start Date: 02/25/22 Status: Ordered citalopram 10 mg oral tablet 10 mg, 1, tablet, By Mouth, Daily, # 30 tablet, Refills 0, Maintenance, 02/12/19 10:28:32 EDT Start Date: 02/12/19 Status: Ordered docusate sodium 100 mg oral capsule See Instructions, TAKE 1 CAPSULE (100 MG) BY MOUTH TWICE DAILY FOR CONSTIPATION (DOCUSATE SODIUM 100 MG), # 60 capsule, 2 Refills, Maintenance, 07/22/22 15:15:00 EDT, [facility], 162.56, cm, 07/04/22 8:33:00 EDT, Height Start Date: 07/22/22 Status: Ordered EARWAX TREATMENT DROPS 6.5% EARWAX TREATMENT DROPS 6.5%, See Instructions, # 1 each, Refills 11, Tot. Refills 11, Maintenance, USE DIRECTED FAX [phone], 12/02/20 14:40:00 EST, [facility], 162.56, cm, [...] 30ML=2,400MG, # 300 mL, 5 Refills, Acute, [facility], 162.56, cm, 02/24/20 9:30:00 EDT, Height Start Date: 10/30/20 Status: Ordered MILLITRIUM TABLET See Instructions, 30, 11, 11, 06/20/08 13:07:29, TAKE 1 TABLET BY MOUTH DAILY (VITAMIN), [facility] [address] [place] [id number], Constant Indicator, MILLITRIUM TABLET Start Date: 06/20/08 [...] bid prn nasal dryness PER DAWIT STOREY SERVICE WORKER-C FAX [phone], 11/02/18 14:15:30 EST, Compound Start Date: 11/02/18 Status: Ordered Ocuflox 0.3% solution 2 drops, Eyes, Both, 4 times a day, # 10 mL, 0 Refills, Maintenance, 01/10/17 14:21:09, Ophth Solution, 2 drops Eyes, Both 4 times a day Start Date: 01/10/17 Status: Ordered Polysporin 500 u-08438 u/gm ointment See Instructions, APPLY A THIN LAYER TOPICALLY TWICE DAILY NEEDED TO RED, IRRITATED SKIN X 7 DAYS / SEE ANCILLARY ORDERS (BACITRACIN-POLYMYXIN OINTMENT), # 28.3 Gm, 5 Refills, Maintenance, 04/14/21 14:39:00 EDT, [facility], 7, APPLY A THIN LAY... Start Date: 04/14/21 Status: Ordered pravastatin 40 mg oral tablet 1 tablet, By Mouth, Daily, IN PM FOR HYPERLIPIDEMIA., # 30 tablet, 5 Refills, [facility], 162.56, cm, 12/06/21 13:34:00 EDT, Height [...] (SUPHEDRIN EQUIVALENT), # 30 tablet, 11 Refills, [facility], 162.56, cm, 03/24/22 10:31:00 EDT, Height Start Date: 04/22/22 Status: Ordered SUDOGEST 30 MG TABLETS SUDOGEST 30 MG TABLETS, See Instructions, # 30 each, Refills 11, Tot. Refills 11, Maintenance, TAKE30 MG Q6H PRN PER DR CRANE FAX [phone], 02/01/19 9:46:36 EDT, Compound Start Date: 02/01/19 Status: Ordered THERA CAPLETS THERA CAPLETS, See Instructions, # 30 each, Refills 5, Tot. Refills 5, Maintenance, TAKE ONE CAPLETBY MOUTH QD PER DR CRANE FAX [phone], 10/08/20 11:48:00 EST, [facility], 162.56, cm, 02/24/20 9:30:00 EDT, Height Start Date: 10/08/20 Status: Ordered Thera oral tablet See Instructions, TAKE 1 TABLET BY MOUTH DAILY IN THE AM (VITAMIN), # 30 tablet, 5 Refills, [facility], 30, TAKE 1 TABLET BY MOUTH [...] mL, 1 Refills, Maintenance, 12/01/20 8:15:00 EST, [place], 1 sprays Topically 2 times a day, 162.56, cm, 02/24/20 9:30:00 EDT, Height Start Date: 12/01/20 Status: Ordered TUSSIN DM TUSSIN DM, See Instructions, # 420 mL, Refills 1, Tot. Refills 1, Maintenance, 10 ML PO Q4H PRN FORCOUGH AT BEDTIME PER DR CRANE FAX [phone], 05/22/20 8:48:00 EDT, [facility], 162.56, cm, 02/24/20 [...] Confirmed Active Vitamin D deficiency Confirmed Active 30005; repeat 2020 2colo 2006 nl, repeat 2016 3Colonoscopy 2016 positive polyp, repeat 2020. 4colo 2015 Social History Social History Type Response Smoking Status Never smoker entered on: 02/01/16 Sex Patient Care team information Personnel Name: Rosa Maria HUSTON, Schuyler Pope Address: Address: [address] [place] [address] Adult [place], [place] [address]
--- OUTSIDE RECORDS SUMMARY | 2024-04-02 09:40 | XMS_ITS | Continuity of Care Document ---
Author Organization [facility] Salvatore Todd lt Address [address] [place] [address]- Care Team Providers Care Supervisor Plate Pasting Name Role Phone Schuyler Crane MD Primary Care Physician Encounter [facility] [place] Date(s): 02/25/21 - 03/04/21 [facility] Adult [address] [place] [address]- Attending Physician: Schuyler Crane MD Allergies, Adverse [...] 10/08/20 8:13:00 EST, Route to Pharmacy Electronically, [facility], 162.56, cm, 02/24/20 9:30:00 EDT, Height Start Date: 10/08/20 Status: Ordered ANTACID 500 MG CHEWABLE TAB ANTACID 500 MG CHEWABLE TAB, See Instructions, # 90 each, Refills 3, Tot. Refills 3, Maintenance, TAKE 1 TABLET PO TID FOR OSTEOPOROSIS. MAY CRUSH TABLET PER DR CRANE FX [phone], 07/20/18 12:11:49EDT, Compound Start Date: 07/20/18 Status: Ordered Bisco-Lax 10 mg rectal suppository See Instructions, INSERT 1 SUPP (10MG) INTO RECTUM NEEDED IF MILK OF MAGNESIA INEFFECTIVE AFTER 8 HRS/BISAC- EVAC EQUIVALENT/ IF SUPPOSITORY INEFFECTIVE AF, # 7 supp, 11 Refills, Acute, [facility], 162.56, cm, 02/24/20 9:30:00 EDT, Height Start Date: 03/30/20 Status: Ordered Blood Pressure Monitor See Instructions, 1, 0, 0, 06/11/07 11:11:37, PRN, HTN, ADS OPPTHS, [facility] [id number] [place] [id number] Start Date: 06/11/07 Status: Ordered calcium carbonate 500 mg (200 mg elemental calcium) oral tablet, chewable 500 mg, 1, tablet, By Mouth, 3 times a day, PER DR CRANE, # 90 tablet, Refills 3, Tot. Refills 3, Maintenance, 12/03/20 14:35:00 EST, Route to Pharmacy Electronically, [facility], 162.56, cm, 02/24/20 9:30:00 EDT, Height Start Date: 12/03/20 Stop Date: 04/02/21 Status: Ordered cetirizine 10 mg oral tablet See Instructions, TAKE 1 TABLET (10 MG) BY MOUTH DAILY IN THE AM FOR SEASONAL ALLERGIES FROM DECEMBER THROUGH JUNE (START 12/24) SEE ANCILLARY ORDERS, # 30 tablet, 5 Refills, Maintenance, [facility], 162.56, cm, 02/25/21 9:29:00 EDT, He... Start Date: 02/25/21 Status: Ordered cetirizine 10 mg oral tablet 1 tablet, By Mouth, Daily in AM, FOR SEASONAL ALLERGIES FROM DECEMBER THROUGH JUNE (START 12/24) SEE ANCILLARY ORDERS., # 30 tablet, 5 Refills, Maintenance, 02/25/21 13:04:00 EDT, [facility], 162.56, cm, 02/25/21 9:29:00 EDT, Height [...] Gm, 11 Refills, Maintenance, 08/07/20 11:11:00 EST, [facility], 30, USE 1/4 INCH OF GEL TO BRUSH TEETH DAILY IN THE EVENING / BRUSH T... Start Date: 08/07/20 Status: Ordered docusate sodium 100 mg oral capsule 1 capsule, By Mouth, 2 times a day, # 60 capsule, 5 Refills, Maintenance, 01/28/21 15:23:00 EDT, [facility], 162.56, cm, 02/24/20 9:30:00 EDT, Height Start Date: 01/28/21 Status: Ordered EARWAX TREATMENT DROPS 6.5% EARWAX TREATMENT DROPS 6.5%, See Instructions, # 1 each, Refills 11, Tot. Refills 11, Maintenance, USE DIRECTED FAX [phone], 12/02/20 14:40:00 EST, [facility], 162.56, cm, 02/24/20 9:30:00 EDT, Height Start Date: 12/02/20 Status: Ordered Milk of Magnesia 8% oral suspension See Instructions, TAKE 2 TABLESPOONFULS (30 ML) BY MOUTH AT BEDTIME NEEDED FOR CONSTIPATION ON DAY 3 OF NO BM / SEE BISCOLAX SUPP ORDER 30ML=2,400MG, # 300 mL, 5 Refills, Acute, [facility], 162.56, cm, 02/24/20 9:30:00 EDT, Height Start Date: 10/30/20 Status: Ordered MILLITRIUM TABLET See Instructions, 30, 11, 11, 06/20/08 13:07:29, TAKE 1 TABLET BY MOUTH DAILY (VITAMIN), [address] [address], Constant Indicator, MILLITRIUM TABLET Start Date: 06/20/08 [...] bid prn nasal dryness PER DAWIT STOREY RESIDENTIAL DOOR INSTALLER-C FAX [phone], 11/02/18 14:15:30 EST, Compound Start Date: 11/02/18 Status: Ordered Ocuflox 0.3% solution 2 drops, Eyes, Both, 4 times a day, # 10 mL, 0 Refills, Maintenance, 01/10/17 14:21:09, Ophth Solution, 2 drops Eyes, Both 4 times a day Start Date: 01/10/17 Status: Ordered Polysporin 500 u-20334 u/gm ointment See Instructions, APPLY A THIN LAYER TOPICALLY TWICE DAILY NEEDED TO RED, IRRITATED SKIN X 7 DAYS / SEE ANCILLARY ORDERS (BACITRACIN-POLYMYXIN OINTMENT), # 28.3 Gm, 5 Refills, Acute, [facility], 7, APPLY A THIN LAYER TOPICALLY TWICE DAILY N... Start Date: 03/30/20 Status: Ordered Polysporin 500 u-12611 u/gm ointment See Instructions, APPLY A THIN LAYER TOPICALLY TWICE DAILY NEEDED TO RED, IRRITATED SKIN X 7 DAYS / SEE ANCILLARY ORDERS (BACITRACIN-POLYMYXIN OINTMENT), # 28.3 Gm, 5 Refills, Acute, [facility], 7, APPLY A THIN LAYER TOPICALLY TWICE DAILY N... Start Date: 03/30/20 Status: Ordered Pravachol 40 mg oral tablet 1 tablet = 40 mg, By Mouth, Daily, # 90 tablet, 1 Refills, Maintenance, 09/08/20 10:55:00 EST, [facility], 162.56, cm, 02/24/20 9:30:00 EDT, Height [...] MG Q6H PRN PER DR CRANE FAX [phone], 02/01/19 9:46:36 EDT, Compound Start Date: 02/01/19 Status: Ordered Suphedrin 30 mg oral tablet See Instructions, TAKE 1 TAB (30 MG) BY MOUTH EVERY 6 HRS NEEDED FOR NASAL CONGESTION/ SEE ANCILLARY ORDERS (SUDOGEST EQUIVALENT), # 30 tablet, 11 Refills, Acute, [facility], 162.56, cm, 02/24/20 9:30:00 EDT, Height Start Date: 05/22/20 Status: Ordered THERA CAPLETS THERA CAPLETS, See Instructions, # 30 each, Refills 5, Tot. Refills 5, Maintenance, TAKE ONE CAPLETBY MOUTH QD PER DR CRANE FAX [phone], 10/08/20 11:48:00 EST, [facility], 162.56, cm, 02/24/20 9:30:00 EDT, Height Start Date: 10/08/20 Status: Ordered Tinactin 1% spray 1 sprays, Topically, 2 times a day, # 120 mL, 1 Refills, Maintenance, 12/01/20 8:15:00 EST, [place], 1 sprays Topically 2 times a day, 162.56, cm, 02/24/20 9:30:00 EDT, Height Start Date: 12/01/20 Status: Ordered TUSSIN KUSHAL [place] DM, See Instructions, # 420 mL, Refills 1, Tot. Refills 1, Maintenance, 10 ML PO Q4H PRN FORCOUGH AT BEDTIME PER DR CRANE FAX [phone], 05/22/20 8:48:00 EDT, Compound, 162.56, cm, 02/24/20 9:30:00 EDT, Height Start Date: 05/22/20 Status: Ordered Tylenol 325 mg oral tablet 650 mg, 2, tablet, By Mouth, Every 4 hours, PER DR CRANE, # 168 tablet, Refills 5, Tot. Refills 5, Maintenance, 10/04/19 10:27:00 EST, Route to Pharmacy Electronically, [facility], 162.56, cm, 02/12/19 10:36:00 EDT, Height [...] Active Underweight(Confirmed) Active Vitamin D deficiency(Confirmed) Active 38344; repeat 2020 2colo 2006 nl, repeat 2015 3Colonoscopy 2016 positive polyp, repeat 2020. 4colo 2015 Vital Signs Most recent to oldest [Reference Range]: 1 Height 162.56 cm (02/25/21 9:29 AM) Weight 58.3 kg (02/25/21 9:29 AM) Oxygen Saturation [94-100 %] 95 % (02/25/21 9:29 AM) Body Mass Index [18.5-24.99] 22.06 (02/25/21 9:29 AM) Blood Pressure [90-138/55-84 mm Hg] 136/ 60mm Hg (02/25/21 9:29 AM) Mode of Delivery (Oxygen) Room air (02/25/21 9:29 AM) Blood pressure sites Arm, left (02/25/21 9:29 AM) Weight Obtained Via Standing scale (02/25/21 9:29 AM) Social History Social History Type Response Smoking Status Never smoker entered on: 02/01/16 Sex
--- OUTSIDE RECORDS SUMMARY | 2024-04-02 09:40 | XMS_ITS | Continuity of Care Document ---
Author Organization [facility] lt Address [address] [place] [address]- Care Team Providers Care Devil Tender Name Role Phone Schuyler Crane MD Primary Care Physician Encounter [facility] [place] Date(s): 01/31/24 - 02/07/24 [facility] Adult [address] [place] [address]- Encounter Diagnosis Foot pain, left(Discharge Diagnosis) - 01/31/24 Hypertension(Discharge Diagnosis) - 01/31/24 Seizure disorder(Discharge Diagnosis) - 01/31/24 Attending Physician: Monty Stafford DO Allergies, Adverse Reactions, Alerts Substance Reaction Severity Status amoxicillin Active cephalosporins Active penicillins Active Ativan Active Klonopin Wafer Active benzodiazepines Active Immunizations Given and Recorded Vaccine Date [...] 08/25/04 G iven 1Result Comment: Td - [facility]# [id number] 2Result Comment: PCV23 - [facility]# [id number] 3Result Comment: [facility]# [id number] 4Result Comment: [10/28/2016] pharmacy 5Admin Note: given [...] 10/14/22 8:03:00 EST, Route to Pharmacy Electronically, [facility], 162.56, cm, 07/04/22 8:33:00 EDT, Height Start Date: 10/14/22 Status: Ordered acetaminophen 325 mg oral tablet 2, tablet, By Mouth, 2 times a day, PRN, # 20 tablet, Refills 0, Tot. Refills 0, Maintenance, NEEDED, 12/12/23 11:09:00 EDT, Route to Pharmacy Electronically, [facility], 162.56, cm, 12/11/2409:47:00 EDT, Height Start Date: 12/12/23 Stop Date: 12/17/23 Status: Ordered All Day Allergy 10 mg oral tablet 1 tablet, By Mouth, Daily in AM, FOR SEASONAL ALLERGIES FROM DECEMBER THROUGH JUNE (START 12/24 / END07/25) SEE ANCILLARY ORDERS., # 30 tablet, 11 Refills, Maintenance, 12/21/23 7:45:00 EDT, [facility], 162.56, cm, 12/12/23 10:47:00 EDT, Height Start Date: 12/21/23 Status: Ordered amLODIPine 10 mg oral tablet 1 tablet, By Mouth, Daily in AM, FOR HYPERTENSION., # 30 tablet, 5 Refills, Maintenance, 10/25/23 0:22:00 EST, [facility], 162.56, cm, 10/03/23 9:00:00 EST, Height Start Date: 10/25/23 Status: Ordered ANTACID 500 MG CHEWABLE TAB ANTACID 500 MG CHEWABLE TAB, See Instructions, # 90 each, Refills 3, Tot. Refills 3, Maintenance, TAKE 1 TABLET PO TID FOR OSTEOPOROSIS. JANUARY CRUSH TABLET PER DR ROSA MARIA CRUZ [phone], 07/20/18 12:11:49EDT, Compound Start Date: 07/20/18 Status: Ordered benzonatate 100 mg oral capsule 1 capsule, By Mouth, 3 times a day, PRN NEEDED FOR COUGH / IF NO IMPROVEMENT IN 3 DAYS NOTIFY / ICJAGRUTI, # 21 capsule, 0 Refills, Maintenance, 10/05/23 12:01:00 EST, [facility], 162.56, cm, 10/03/23 9:00:00 EST, Height Start Date: 10/05/23 Status: Ordered bisacodyl 10 mg rectal suppository See Instructions, INSERT 1 SUPP (10MG) INTO RECTUM NEEDED IF MILK OF MAGNESIA INEFFECTIVE AFTER 8 HRS/BISAC- EVAC EQUIVALENT/ IF SUPPOSITORY INEFFECTIVE AFTER 4 HRS CALL MD, # 7 supp, 11 Refills, Acute, [facility], 162.56, cm, 02/25/21 9:29:00... Start Date: 04/15/21 Status: Ordered Blood Pressure Monitor See Instructions, 1, 0, 0, 06/11/07 11:11:37, PRN, HTN, ADS OPPTHS, [facility] [address] [address] Start Date: 06/11/07 Status: Ordered calcium carbonate 500 mg (200 mg elemental calcium) oral tablet, chewable 1, tablet, By Mouth, 3 times a day, CRUSH. IC: CALCIUM CARBONATE, # 90 tablet, Refills 5, Maintenance, 10/02/23 8:50:00 EST, Route to Pharmacy Electronically, [facility], 162.56, cm, 09/19/23 10:28:00 EST, Height Start Date: 10/02/23 Status: Ordered carbamide peroxide 6.5% otic solution See Instructions, INSTILL 4 DROPS INTO EACH EAR TWICE DAILY FOR 5 DAYS EACH MONTH / IC: CARBAMIDE PEROXIDE (EAR DROPS 6.5%), # 15 mL, 11 Refills, Maintenance, 09/01/23 9:17:00 EST, [facility], 30, INSTILL 4 DROPS INTO EACH [...] capsule, 5 Refills, Maintenance, 11/23/23 20:00:00 EST, [facility], 162.56, cm, 10/03/23 9:00:00 EST, Height Start Date: 11/23/23 Status: Ordered EARWAX TREATMENT DROPS 6.5% EARWAX TREATMENT DROPS 6.5%, See Instructions, # 1 each, Refills 11, Tot. Refills 11, Maintenance, USE DIRECTED FAX [phone], 12/02/20 14:40:00 EST, [facility], 162.56, cm, 02/24/20 9:30:00 EDT, Height Start Date: 12/02/20 Status: Ordered fluoride 1.1% topical gel See Instructions, USE 1/4 INCH OF GEL TO BRUSH TEETH DAILY IN THE EVENING / BRUSH THOROUGHLY ALONG GUMLINE IC: DENTAGEL, # 56 Gm, 11 Refills, Maintenance, 09/21/23 16:44:00 EST, [facility], 30, USE 1/4 INCH OF GEL TO BRUSH TEETH DAILY IN THE EVEN... Start Date: 09/21/23 Status: Ordered Carolyn-jag 8.6 mg oral tablet 1 tablet, By Mouth, Daily in PM, FOR CONSTIPATION / SEE MILK OF MAG ORDERS / IC: SENNA 8.6 MG, # 15tablet, 6 Refills, Maintenance, 10/14/22 8:03:00 EST, [facility], 162.56, cm, 07/04/22 8:33:00EDT, Height Start Date: 10/14/22 Status: Ordered Hospital Bed See Instructions, # 1 each, Refills 0, Tot. Refills 0, Maintenance, Electric Hospital Bed DX: Left hip fracture, seizure dis, impulse control disorder, atypical autism. Duration ongoing NPI#[id number] Height: 5'6 Weight: 137lbs, 03/22/23 13:55:... Start Date: 03/22/23 Status: Ordered Milk of Magnesia 8% oral suspension See Instructions, TAKE 2 TABLESPOONFULS (30 ML) BY MOUTH AT BEDTIME NEEDED FOR CONSTIPATION ON DAY 3 OF NO BM / SEE BISCOLAX SUPP ORDER 30ML=2,400MG, # 300 mL, 5 Refills, Acute, [facility], 162.56, cm, 02/24/20 9:30:00 EDT, Height Start Date: 10/30/20 Status: Ordered MILLITRIUM TABLET See Instructions, 30, 11, 11, 06/20/08 13:07:29, TAKE 1 TABLET BY MOUTH DAILY (VITAMIN), [facility] [address] [place] [id number], Constant Indicator, MILLITRIUM TABLET Start Date: 06/20/08 [...] tablet, 0 Refills, Maintenance, 10/03/23 8:50:00 EST, [facility], Partial fill upon patient request if the prescription... Start Date: 10/03/23 Status: Ordered Polysporin 500 u-44333 u/gm ointment See Instructions, APPLY A THIN LAYER TOPICALLY TWICE DAILY NEEDED TO RED, IRRITATED SKIN X 7 DAYS / SEE ANCILLARY ORDERS (BACITRACIN-POLYMYXIN OINTMENT), # 28.3 Gm, 5 Refills, Maintenance, 04/18/23 8:59:00 EDT, [facility], 7, APPLY A THIN LAYE... Start Date: 04/18/23 Status: Ordered pravastatin 40 mg oral tablet 1 tablet, By Mouth, Daily, IN PM FOR HYPERLIPIDEMIA., # 30 tablet, 5 Refills, Maintenance, 248:50:00 EST, [facility], 162.56, cm, 09/19/23 10:28:00 EST, Height Start Date: 10/02/23 Status: Ordered predniSONE 20 mg oral tablet See Instructions, then 1 daily for 7 days for rash, # 7 tablet, 0 Refills, Acute 02/08/24 10:40:00 EDT, 01/31/24 10:39:00 EDT, [facility], Partial fill upon patient request if the prescription is for a schedule II opioid drug., 162.56, cm, ... Start Date: 01/31/24 Stop Date: 02/08/24 Status: Ordered Profola oral tablet 1 tablet, By Mouth, Daily, # 30 tablet, 11 Refills, Maintenance, 05/19/23 10:41:00 EDT, [facility], Partial fill upon patient request if [...] tablet, 11 Refills, Maintenance, 10/26/23 8:49:00 EST, [facility], 162.56, cm, 10/03/23 9:00:00 EST, Height Start Date: 10/26/23 Status: Ordered SUDOGEST 30 MG TABLETS SUDOGEST 30 MG TABLETS, See Instructions, # 30 each, Refills 11, Tot. Refills 11, Maintenance, TAKE30 MG Q6H PRN PER DR CRANE FAX [phone], 02/01/19 9:46:36 EDT, Compound Start Date: 02/01/19 Status: Ordered Thera oral tablet 1 tablet, By Mouth, Daily in AM, VITAMIN., # 30 tablet, 5 Refills, Maintenance, 10/25/23 10:03:00 EST, [facility], 30, TAKE 1 TABLET BY MOUTH [...] mL, 1 Refills, Maintenance, 12/01/20 8:15:00 EST, [place], [facility], 1 sprays Topically 2 times a day, 162.56, cm, 02/24/20 9:30:00 EDT, Height Start Date: 12/01/20 Status: Ordered JAMAL FATIMA, See Instructions, # 420 mL, Refills 1, Tot. Refills 1, Maintenance, 10 ML PO Q4H PRN FORCOUGH AT BEDTIME PER DR CRANE FAX [phone], 05/22/20 8:48:00 EDT, Compound, 162.56, cm, 02/24/20 [...] Confirmed Active Vitamin D deficiency Confirmed Active 05246; repeat 2020 2colo 2005 nl, repeat 2015 3Colonoscopy 2016 positive polyp, repeat 2020. 4colo 2015 Diagnosis Diagnosis Type Effective Dates Health Status Clinical Service Informant Foot pain, left Discharge Diagnosis 01/31/24 Hypertension Discharge Diagnosis 01/31/24 Seizure disorder Discharge Diagnosis 01/31/24 Vital Signs Most recent to oldest [Reference Range]: 1 Height 162.56 cm (01/31/24 10:16 AM) Blood Pressure [90-138/55-84 mm Hg] 146/ 63mm Hg *H* (01/31/24 10:16 AM) Respiratory Rate [16-30 br/min] 16 br/mi n (01/31/24 10:16 AM) Mode of Delivery (Oxygen) Room air (01/31/24 10:16 AM) Blood pressure sites Arm, left (01/31/24 10:16 AM) Temperature Route Oral (01/31/24 10:16 AM) Social History Social History Type Response Smoking Status Never smoker entered on: 02/01/16 Sex Note * Pamela Alexandra: PERFORM Event Display: Patient Education/Instruction Authored Date: [id number] Ambulatory Adult Visit Summary [facility] [address] [place] [address] Name: ISAK FERRARO : 1955?? Visit: 01/31/2024 10:04?? Ambulatory Visit Instructions ?? Your Care Team Primary Care Provider Schuyler Crane MD? This Visit Provider Monty Stafford DO Your Diagnosis Foot pain, left Hypertension Seizure disorder Vitals Signs Respiratory Rate: 16 br/min Height: 162.56 cm Systolic Blood Pressure:??146 mm Hg??High ?? Diastolic Blood Pressure: 63 mm Hg ?? What to do next Instructions From Your Provider Extend prednisone 7??more days?? followup if worsens changes prior to??f/u?? may return to??day program?? Scheduled Follow-Up Appointments January. 2023 11:30 AM EDT ?? With: Monty Stafford DO Where: [facility] [address] [place] [address]- Status: Pending Follow-Up Appointments Follow Up with??Monty Stafford DO When:??02/15/2024 11:30 AM EDT Why: 2 WEEK RETURN Where: [address] [place] [address] [place] [address]- Follow up Appointment - Ordered?-- in 2 week left ankle pain, 01/31/24 10:42:00 EDT Medications The list below reflects the information in our records and provided by you today along with any changes made during this visit. Please continue your medications until treatment is completed or stopped by your provider. If this is different from the information you have or there are other questions,please contact the prescribing provider. What How Much When Why Instructions New PredniSONE (predniSONE 20 mg oral tablet) See instructions Foot pain, left then 1 daily for 7 days for rash ?? Pickup [facility] Unchanged Acetaminophen (acetaminophen 325 mg oral tablet) 2 tab(s) Oral Twice a day as needed for NEEDED Duration: 5 Days Unchanged Acetaminophen (acetaminophen 325 mg oral tablet) 2 tab(s) Oral Every 4 hours as needed for NEEDED SEE MD ORDERS) (MAPAP. ?? Unchanged Amlodipine (amLODIPine 10 mg oral tablet) 1 tab(s) Oral Daily in the morning FOR HYPERTENSION. ?? Unchanged Bacitracin-Polymyxin B Topical (Polysporin 500 u-14160 u/ gm ointment) See instructions APPLY A THIN LAYER TOPICALLY TWICE DAILY NEEDED TO RED, IRRITATED SKIN X 7 DAYS / ??SEE ANCILLARY ORDERS (BACITRACIN-POLYMYXIN OINTMENT) ?? Unchanged Benzonatate (benzonatate 100 mg oral capsule) 1 capsule Oral 3 times a day as needed for NEEDED FOR COUGH / IF NO IMPROVEMENT IN 3 DAYS NOTIFY MD / IC JAGRUTI ?? Unchanged Bisacodyl (bisacodyl 10 mg rectal suppository) See instructions INSERT 1 SUPP (10MG) INTO RECTUM NEEDED IF MILK OF MAGNESIA INEFFECTIVE AFTER 8 HRS/ BISAC- EVACEQUIVALENT/ ??IF SUPPOSITORY INEFFECTIVE AFTER 4 HRS CALL MD ?? Unchanged Calcium Carbonate (calcium carbonate 500 mg (200 mg elemental calcium) oral tablet, chewable) 1 tab(s) Oral 3 times a day CRUSH. IC: CALCIUM CARBONATE ?? Unchanged Carbamide Peroxide Otic (carbamide peroxide 6.5% otic solution) See instructions INSTILL 4 DROPS INTO EACH EAR TWICE DAILY FOR 5 DAYS EACH MONTH / ??IC: CARBAMIDE PEROXIDE (EAR DROPS 6.5%) ?? Unchanged Cetirizine (All Day Allergy 10 mg oral tablet) 1 tab(s) Oral Daily in the morning FOR SEASONAL ALLERGIES FROM DECEMBER THROUGH JUNE (START 12/24 / ??END ) SEE ANCILLARY ORDERS.?? Unchanged Cholecalciferol (Vitamin D3 2000 intl units oral tablet) 1 tab(s) Oral Daily PER DR CRANE ?? Unchanged Citalopram (citalopram 10 mg oral tablet) 1 tab(s) Oral Daily Unchanged Docusate (docusate sodium 100 mg oral capsule) See instructions TAKE 1 CAPSULE (100 MG) BY MOUTH TWICE DAILY FOR CONSTIPATION (DOCUSATE SODIUM 100 MG) ?? Unchanged Durable Medical Equipment (ABD Pads (6X9)) See instructions INSTILL 4 DROPS INTO EACH EAR TWICE DAILY FOR 5 DAYS EACH MONTH / ??IC: CARBAMIDE PEROXIDE (EAR DROPS 6.5%) ?? Unchanged Durable Medical Equipment (Blood Pressure Monitor) See Instructions HTN PRN ?? Unchanged Durable Medical Equipment (Hospital Bed) See instructions Electric Hospital Bed DX: Left hip fracture, seizure dis, impulse control disorder, atypical autism. Duration ongoing ??NPI#[id number] Height: 5'6 ??Weight: 137lbs ?? Unchanged Fluoride Topical (fluoride 1.1% topical gel) See instructions USE 1/ 4 INCH OF GEL TO BRUSH TEETH DAILY IN THE EVENING / ??BRUSH THOROUGHLY ALONG GUMLINE IC: DENTAGEL ?? Unchanged Milk of Magnesia (Milk of Magnesia 8% oral suspension) See instructions TAKE 2 TABLESPOONFULS (30 ML) BY MOUTH AT BEDTIME NEEDED FOR CONSTIPATION ON DAY 3 OF NO BM / ??SEE BISCOLAX SUPP ORDER 30ML=2,400MG ?? Unchanged Miscellaneous Medication (MILLITRIUM TABLET) See Instructions TAKE 1 TABLET BY MOUTH DAILY (VITAMIN) ?? Unchanged Miscellaneous Rx (ANTACID 500 MG CHEWABLE TAB) See instructions TAKE 1 TABLET PO TID FOR OSTEOPOROSIS. MAY CRUSH TABLET PER DR CRANE FX [phone] ?? Unchanged Miscellaneous Rx (EARWAX TREATMENT DROPS 6.5%) See instructions USE DIRECTED FAX [phone] ?? Unchanged Miscellaneous Rx (OCEAN SALINE NASAL MIST) See instructions use bid prn nasal dryness ?? Unchanged Miscellaneous Rx (SUDOGEST 30 MG TABLETS) See instructions TAKE 30 MG Q6H PRN PER DR CRANE FAX [phone] ?? Unchanged Miscellaneous Rx (TINACTIN 1% AEROSOL POWDER 1 Aerosol) 2 spray(s) Topically Twice a day as needed for NEEDED FOR Unchanged Miscellaneous Rx (TUSSIN DM) See instructions 10 ML PO Q4H PRN FOR COUGH AT BEDTIME PER DR CRANE FAX [phone] ?? Unchanged Multivitamin (Thera oral tablet) 1 tab(s) Oral Daily in the morning VITAMIN. ?? Unchanged Multivitamin With Minerals (Profola oral tablet) 1 tab(s) Oral Daily Duration: 30 Days Unchanged nirmatrelvir-ritonavir (Paxlovid 150 mg-100 mg (150 mg-100 mg Dose) oral tablet) See instructions COVID-19 Take 3 tablets twice a day by mouth for 5 days.300 mg nirmatrelvir plus 100 mg ritonavir. Normal dose ?? Unchanged Pravastatin (pravastatin 40 mg oral tablet) 1 tab(s) Oral Daily IN PM FOR HYPERLIPIDEMIA. ?? Unchanged Pseudoephedrine (SudoGest 30 mg oral tablet) See instructions TAKE 1 TAB (30 MG) BY MOUTH EVERY 6 HRS NEEDED FOR NASAL CONGESTION/ ??SEE ANCILLARY ORDERS (SUPHEDRIN EQUIVALENT) ?? Unchanged Risperidone (RisperDAL 0.25 mg oral tablet) 1 tab(s) Oral Twice a day as needed for Other 1 tablet by mouth prior to ophthalmology appointment followed by another tablet. ?? Unchanged Risperidone (RisperDAL 0.5 mg oral tablet) See instructions 1 tablet By Mouth prior to doctor appointments. ?? Unchanged Risperidone (RisperDAL 1 mg oral tablet) 1 tab(s) Oral Twice a day Unchanged Senna (Carolyn-jag 8.6 mg oral tablet) 1 tab(s) Oral Daily in PM FOR CONSTIPATION / ??SEE MILK OF MAG ORDERS / ??IC: SENNA 8.6 MG ?? Unchanged Tolnaftate Topical (Tinactin 1% spray) 1 spray(s) Topically Twice a day Unchanged Zoster Vaccine Live (Zostavax subcutaneous injection) 0.65 Milliliter Subcutaneous Infusion Once [facility] Pharmacy: [address] [place] [address] [phone] Medications and Immunizations Administered Medications Given During Visit No medications given during this visit.?? Allergies (NKA means No Known Allergies) Ativan Klonopin Wafer amoxicillin benzodiazepines cephalosporins penicillins Common Emergency Awareness Tips IS IT A [...] are strongly encouraged to quit. Please call [facility] at [phone] or [phone]) or log in to [email or web address] for referrals to smoking cessation programs. ?? The National Suicide Prevention Hotline is available 17/04 if you or someone you know needs to find a reason to keep living. By calling 5-470-914-[employer] (9326) you'll be connected to a skilled, trained counselor at a crisis center in your area. [facility] Portal You can view and manage your care through the patient portal or by using a health care guy of your choosing. [employer] is a website that allows you to securely view your medical information including your hospital discharge summary, office visit summaries, medications and follow-up visits. You can also request appointments, renew medications, and request access to your medical information using a health care guy of your choosing, or just ask a question. You can enroll at [email or web address] or register during your next office visit. [facility], in keeping with [facility] guidance, no longer requires face masks for [...] primary care provider, you may find a [facility] provider by calling [facility] at [phone]. Patient Care team information Care Team Personnel Name: Schuyler Crane MD Position: [facility] Physician - Primary Care Member Role: PCP Address: Address: [address] [place] [id number]- Care Team Related Persons Name: ELLE ALMEIDA Address: [address] [address] Name: ZAK SHELL
--- OUTSIDE RECORDS SUMMARY | 2024-04-02 09:40 | XMS_ITS | Continuity of Care Document ---
Author Organization [facility] Salvatore Todd lt Address [address] [place] [address]- Care Team Providers Care Associate Research Scientist Name Role Phone Schuyler Crane MD Primary Care Physician [phone] [facility]23 - 05/11/23 [facility] Adult [address] [place] [address]- Allergies, Adverse Reactions, Alerts Substance Reaction Severity [...] 08/25/04 G cristy 1Result Comment: Td - [facility]# [id number] 2Result Comment: PCV23 - [facility]# [id number] 3Result Comment: [facility]# [id number] 4Result Comment: [10/28/2016] pharmacy 5Admin Note: given [...] 10/14/22 8:03:00 EST, Route to Pharmacy Electronically, [facility], 162.56, cm, 07/04/22 8:33:00 EDT, Height Start Date: 10/14/22 Status: Ordered All Day Allergy 10 mg oral tablet See Instructions, TAKE 1 TABLET (10 MG) BY MOUTH DAILY IN THE AM FOR SEASONAL ALLERGIES FROM DECEMBER THROUGH JUNE (START 12/24 / END 07/25) SEE ANCILLARY ORDERS, # 30 tablet, 2 Refills, Maintenance, 04/13/23 14:33:00 EDT, [facility], 162.56, cm, 0... Start Date: 04/13/23 Status: Ordered amLODIPine 10 mg oral tablet 1 tablet, By Mouth, Daily in AM, FOR HYPERTENSION., # 30 tablet, 5 Refills, Maintenance, 04/19/23 23:11:00 EDT, [facility], 162.56, cm, 04/10/23 7:35:00 EDT, Height Start Date: 04/19/23 Status: Ordered ANTACID 500 MG CHEWABLE TAB ANTACID 500 MG CHEWABLE TAB, See Instructions, # 90 each, Refills 3, Tot. Refills 3, Maintenance, TAKE 1 TABLET PO TID FOR OSTEOPOROSIS. MAY CRUSH TABLET PER DR ROSA MARIA CRUZ [phone], 07/20/18 12:11:49EDT, Compound Start Date: 07/20/18 Status: Ordered benzonatate 100 mg oral capsule 1 capsule, By Mouth, 3 times a day, PRN NEEDED FOR COUGH / IF NO IMPROVEMENT IN 3 DAYS NOTIFY MD/ IC, JAGRUTI, # 21 capsule, 0 Refills, Maintenance, 02/17/23 8:57:00 EDT, [facility], 162.56, cm, 07/04/22 8:33:00 EDT, Height Start Date: 02/17/23 Status: Ordered bisacodyl 10 mg rectal suppository See Instructions, INSERT 1 SUPP (10MG) INTO RECTUM NEEDED IF MILK OF MAGNESIA INEFFECTIVE AFTER 8 HRS/BISAC- EVAC EQUIVALENT/ IF SUPPOSITORY INEFFECTIVE AFTER 4 HRS CALL MD, # 7 supp, 11 Refills, Acute, [facility], 162.56, cm, 02/25/21 9:29:00... Start Date: 04/15/21 Status: Ordered Blood Pressure Monitor See Instructions, 1, 0, 0, 06/11/07 11:11:37, PRN, HTN, ADS OPPTHS, [facility] [place] [id number] Start Date: 06/11/07 Status: Ordered calcium carbonate 500 mg (200 mg elemental calcium) oral tablet, chewable 1, tablet, By Mouth, 3 times a day, CRUSH. IC: CALCIUM CARBONATE, # 90 tablet, Refills 5, Maintenance, 02/17/23 8:57:00 EDT, Route to Pharmacy Electronically, [facility], 162.56, cm, 07/04/22 8:33:00 EDT, Height Start Date: 02/17/23 Status: Ordered carbamide peroxide 6.5% otic solution See Instructions, INSTILL 4 DROPS INTO EACH EAR TWICE DAILY FOR 5 DAYS EACH MONTH / IC: CARBAMIDE PEROXIDE (EAR DROPS 6.5%), # 15 mL, 11 Refills, Maintenance, 08/21/22 7:49:00 EST, [facility], 30, INSTILL 4 DROPS INTO EACH [...] capsule, 5 Refills, Maintenance, 10/20/22 6:09:00 EST, [facility], 162.56, cm, 07/04/22 8:33:00 EDT, Height Start Date: 10/20/22 Status: Ordered EARWAX TREATMENT DROPS 6.5% EARWAX TREATMENT DROPS 6.5%, See Instructions, # 1 each, Refills 11, Tot. Refills 11, Maintenance, USE DIRECTED FAX [phone], 12/02/20 14:40:00 EST, [facility], 162.56, cm, 02/24/20 9:30:00 EDT, Height Start Date: 12/02/20 Status: Ordered fluoride 1.1% topical gel See Instructions, USE 1/4 INCH OF GEL TO BRUSH TEETH DAILY IN THE EVENING / BRUSH THOROUGHLY ALONG GUMLINE IC: DENTAGEL, # 56 Gm, 11 Refills, [facility], 30, USE 1/4 INCH OF GEL TO BRUSH TEETH DAILY IN THE EVENING / BRUSH THOROUGHLY ALONG GUMLINE... Start Date: 01/28/22 Status: Ordered Carolyn-jag 8.6 mg oral tablet 1 tablet, By Mouth, Daily in PM, FOR CONSTIPATION / SEE MILK OF MAG ORDERS / IC: SENNA 8.6 MG, # 15tablet, 6 Refills, Maintenance, 10/14/22 8:03:00 EST, [facility], 162.56, cm, 07/04/22 8:33:00EDT, Height Start Date: 10/14/22 Status: Ordered Hospital Bed See Instructions, # 1 each, Refills 0, Tot. Refills 0, Maintenance, [facility] Bed DX: Left hip fracture, seizure dis, impulse control disorder, atypical autism. Duration ongoing NPI#[id number] Height: 5'6 Weight: 137lbs, 03/22/23 13:55:... Start Date: 03/22/23 Status: Ordered Milk of Magnesia 8% oral suspension See Instructions, TAKE 2 TABLESPOONFULS (30 ML) BY MOUTH AT BEDTIME NEEDED FOR CONSTIPATION ON DAY 3 OF NO BM / SEE BISCOLAX SUPP ORDER 30ML=2,400MG, # 300 mL, 5 Refills, Acute, [facility], 162.56, cm, 02/24/20 9:30:00 EDT, Height Start Date: 10/30/20 Status: Ordered MILLITRIUM TABLET See Instructions, 30, 11, 11, 06/20/08 13:07:29, TAKE 1 TABLET BY MOUTH DAILY (VITAMIN), [facility] [address] [place] [address], Constant Indicator, MILLITRIUM TABLET Start Date: 06/20/08 Status: Ordered OCEAN SALINE NASAL MIST OCEAN SALINE NASAL MIST, See Instructions, # 1 each, Refills 2, Tot. Refills 2, Maintenance, use bid prn nasal dryness, 11/06/18 9:57:36 EST, Compound Start Date: 11/06/18 Status: Ordered Polysporin 500 u-13448 u/gm ointment See Instructions, APPLY A THIN LAYER TOPICALLY TWICE DAILY NEEDED TO RED, IRRITATED SKIN X 7 DAYS / SEE ANCILLARY ORDERS (BACITRACIN-POLYMYXIN OINTMENT), # 28.3 Gm, 5 Refills, Maintenance, 04/18/23 8:59:00 EDT, [facility], 7, APPLY A THIN LAYE... Start Date: 04/18/23 Status: Ordered pravastatin 40 mg oral tablet See Instructions, TAKE 1 TABLET (40 MG) BY MOUTH DAILY IN PM FOR HYPERLIPIDEMIA, # 30 tablet, 5 Refills, Maintenance, 02/17/23 13:00:00 EDT, [facility], 162.56, cm, 07/04/22 8:33:00 EDT, Height [...] (SUPHEDRIN EQUIVALENT), # 30 tablet, 11 Refills, [facility], 162.56, cm, 03/24/22 10:31:00 EDT, Height Start Date: 04/22/22 Status: Ordered SUDOGEST 30 MG TABLETS SUDOGEST 30 MG TABLETS, See Instructions, # 30 each, Refills 11, Tot. Refills 11, Maintenance, TAKE30 MG Q6H PRN PER DR CRANE FAX [phone], 02/01/19 9:46:36 EDT, Compound Start Date: 02/01/19 Status: Ordered THERA CAPLETS THERA CAPLETS, See Instructions, # 30 each, Refills 5, Tot. Refills 5, Maintenance, TAKE ONE CAPLETBY MOUTH QD PER DR CRANE FAX [phone], 10/08/20 11:48:00 EST, [facility], 162.56, cm, 02/24/20 [...] mL, 1 Refills, Maintenance, 12/01/20 8:15:00 EST, [place], 1 sprays Topically 2 times a day, 162.56, cm, 02/24/20 9:30:00 EDT, Height Start Date: 12/01/20 Status: Ordered TUSSIN DM TUSSIN DM, See Instructions, # 420 mL, Refills 1, Tot. Refills 1, Maintenance, 10 ML PO Q4H PRN FORCOUGH AT BEDTIME PER DR CRANE FAX [phone], 05/22/20 8:48:00 EDT, Compound, 162.56, cm, 02/24/20 [...] Confirmed Active Vitamin D deficiency Confirmed Active 77589; repeat 2020 2colo 2006 nl, repeat 2015 3Colonoscopy 2016 positive polyp, repeat 2020. 4colo 2015 Social History Social History Type Response Smoking Status Never smoker entered on: 02/01/16 Sex Patient Care team information Care Team Personnel Name: Rosa Maria HUSTON, Schuyler Pope Position: [facility] Physician - Primary Care Member Role: PCP Address: Address: [address] [place] [address]- Care Team Related Persons Name: ELLE ALMEIDA Address: home [address] [place] [id number] Name: ZAK SHELL
--- OUTSIDE RECORDS SUMMARY | 2024-04-02 09:40 | XMS_ITS | Continuity of Care Document ---
Author Organization [facility] Salvatore Todd lt Address [address] [place] [address]- Care Team Providers Care Fire Production Operator Name Role Phone Schuyler Crane MD Primary Care Physician [phone] [facility] 03[facility]23 - 04/28/23 [facility] Adult [address] [place] [address]- Allergies, Adverse Reactions, Alerts Substance Reaction Severity [...] 08/25/04 G cristy 1Result Comment: Td - [facility]# [id number] 2Result Comment: PCV23 - [facility]# [id number] 3Result Comment: [facility]# [id number] 4Result Comment: [10/28/2016] pharmacy 5Admin Note: given [...] 10/14/22 8:03:00 EST, Route to Pharmacy Electronically, [facility], 162.56, cm, 07/04/22 8:33:00 EDT, Height Start Date: 10/14/22 Status: Ordered All Day Allergy 10 mg oral tablet See Instructions, TAKE 1 TABLET (10 MG) BY MOUTH DAILY IN THE AM FOR SEASONAL ALLERGIES FROM DECEMBER THROUGH JUNE (START 12/24 / END 07/25) SEE ANCILLARY ORDERS, # 30 tablet, 2 Refills, Maintenance, 04/13/23 14:33:00 EDT, [facility], 162.56, cm, 0... Start Date: 04/13/23 Status: Ordered amLODIPine 10 mg oral tablet 1 tablet, By Mouth, Daily in AM, FOR HYPERTENSION., # 30 tablet, 5 Refills, Maintenance, 04/19/23 23:11:00 EDT, [facility], 162.56, cm, 04/10/23 7:35:00 EDT, Height Start Date: 04/19/23 Status: Ordered ANTACID 500 MG CHEWABLE TAB ANTACID 500 MG CHEWABLE TAB, See Instructions, # 90 each, Refills 3, Tot. Refills 3, Maintenance, TAKE 1 TABLET PO TID FOR OSTEOPOROSIS. MAY CRUSH TABLET PER DR ROSA MARIA CRUZ [phone], 07/20/18 12:11:49EDT, Compound Start Date: 07/20/18 Status: Ordered benzonatate 100 mg oral capsule 1 capsule, By Mouth, 3 times a day, PRN NEEDED FOR COUGH / IF NO IMPROVEMENT IN 3 DAYS NOTIFY MD/ IC, JAGRUTI, # 21 capsule, 0 Refills, Maintenance, 02/17/23 8:57:00 EDT, [facility], 162.56, cm, 07/04/22 8:33:00 EDT, Height Start Date: 02/17/23 Status: Ordered bisacodyl 10 mg rectal suppository See Instructions, INSERT 1 SUPP (10MG) INTO RECTUM NEEDED IF MILK OF MAGNESIA INEFFECTIVE AFTER 8 HRS/BISAC- EVAC EQUIVALENT/ IF SUPPOSITORY INEFFECTIVE AFTER 4 HRS CALL MD, # 7 supp, 11 Refills, Acute, [facility], 162.56, cm, 02/25/21 9:29:00... Start Date: 04/15/21 Status: Ordered Blood Pressure Monitor See Instructions, 1, 0, 0, 06/11/07 11:11:37, PRN, HTN, ADS OPPTHS, [facility] [place] [address] Start Date: 06/11/07 Status: Ordered calcium carbonate 500 mg (200 mg elemental calcium) oral tablet, chewable 1, tablet, By Mouth, 3 times a day, CRUSH. IC: CALCIUM CARBONATE, # 90 tablet, Refills 5, Maintenance, 02/17/23 8:57:00 EDT, Route to Pharmacy Electronically, [facility], 162.56, cm, 07/04/22 8:33:00 EDT, Height Start Date: 02/17/23 Status: Ordered carbamide peroxide 6.5% otic solution See Instructions, INSTILL 4 DROPS INTO EACH EAR TWICE DAILY FOR 5 DAYS EACH MONTH / IC: CARBAMIDE PEROXIDE (EAR DROPS 6.5%), # 15 mL, 11 Refills, Maintenance, 08/21/22 7:49:00 EST, [facility], 30, INSTILL 4 DROPS INTO EACH [...] capsule, 5 Refills, Maintenance, 10/20/22 6:09:00 EST, [facility], 162.56, cm, 07/04/22 8:33:00 EDT, Height Start Date: 10/20/22 Status: Ordered EARWAX TREATMENT DROPS 6.5% EARWAX TREATMENT DROPS 6.5%, See Instructions, # 1 each, Refills 11, Tot. Refills 11, Maintenance, USE DIRECTED FAX [phone], 12/02/20 14:40:00 EST, [facility], 162.56, cm, 02/24/20 9:30:00 EDT, Height Start Date: 12/02/20 Status: Ordered fluoride 1.1% topical gel See Instructions, USE 1/4 INCH OF GEL TO BRUSH TEETH DAILY IN THE EVENING / BRUSH THOROUGHLY ALONG GUMLINE IC: DENTAGEL, # 56 Gm, 11 Refills, [facility], 30, USE 1/4 INCH OF GEL TO BRUSH TEETH DAILY IN THE EVENING / BRUSH THOROUGHLY ALONG GUMLINE... Start Date: 01/28/22 Status: Ordered Carolyn-jag 8.6 mg oral tablet 1 tablet, By Mouth, Daily in PM, FOR CONSTIPATION / SEE MILK OF MAG ORDERS / IC: SENNA 8.6 MG, # 15tablet, 6 Refills, Maintenance, 10/14/22 8:03:00 EST, [facility], 162.56, cm, 07/04/22 8:33:00EDT, Height Start Date: 10/14/22 Status: Ordered Hospital Bed See Instructions, # 1 each, Refills 0, Tot. Refills 0, Maintenance, [facility] DX: Left hip fracture, seizure dis, impulse control disorder, atypical autism. Duration ongoing NPI#[id number] Height: 5'6 Weight: 137lbs, 03/22/23 13:55:... Start Date: 03/22/23 Status: Ordered Milk of Magnesia 8% oral suspension See Instructions, TAKE 2 TABLESPOONFULS (30 ML) BY MOUTH AT BEDTIME NEEDED FOR CONSTIPATION ON DAY 3 OF NO BM / SEE BISCOLAX SUPP ORDER 30ML=2,400MG, # 300 mL, 5 Refills, Acute, [facility], 162.56, cm, 02/24/20 9:30:00 EDT, Height Start Date: 10/30/20 Status: Ordered MILLITRIUM TABLET See Instructions, 30, 11, 11, 06/20/08 13:07:29, TAKE 1 TABLET BY MOUTH DAILY (VITAMIN), [address] [address], Constant Indicator, MILLITRIUM TABLET Start Date: 06/20/08 Status: Ordered OCEAN SALINE NASAL MIST OCEAN SALINE NASAL MIST, See Instructions, # 1 each, Refills 2, Tot. Refills 2, Maintenance, use bid prn nasal dryness, 11/06/18 9:57:36 EST, Compound Start Date: 11/06/18 Status: Ordered Polysporin 500 u-46646 u/gm ointment See Instructions, APPLY A THIN LAYER TOPICALLY TWICE DAILY NEEDED TO RED, IRRITATED SKIN X 7 DAYS / SEE ANCILLARY ORDERS (BACITRACIN-POLYMYXIN OINTMENT), # 28.3 Gm, 5 Refills, Maintenance, 04/18/23 8:59:00 EDT, [facility], 7, APPLY A THIN LAYE... Start Date: 04/18/23 Status: Ordered pravastatin 40 mg oral tablet See Instructions, TAKE 1 TABLET (40 MG) BY MOUTH DAILY IN PM FOR HYPERLIPIDEMIA, # 30 tablet, 5 Refills, Maintenance, 02/17/23 13:00:00 EDT, [facility], 162.56, cm, 07/04/22 8:33:00 EDT, Height [...] (SUPHEDRIN EQUIVALENT), # 30 tablet, 11 Refills, [facility], 162.56, cm, 03/24/22 10:31:00 EDT, Height Start Date: 04/22/22 Status: Ordered SUDOGEST 30 MG TABLETS SUDOGEST 30 MG TABLETS, See Instructions, # 30 each, Refills 11, Tot. Refills 11, Maintenance, TAKE30 MG Q6H PRN PER DR CRANE FAX [phone], 02/01/19 9:46:36 EDT, Compound Start Date: 02/01/19 Status: Ordered THERA CAPLETS THERA CAPLETS, See Instructions, # 30 each, Refills 5, Tot. Refills 5, Maintenance, TAKE ONE CAPLETBY MOUTH QD PER DR CRANE FAX [phone], 10/08/20 11:48:00 EST, [facility], 162.56, cm, 02/24/20 [...] mL, 1 Refills, Maintenance, 12/01/20 8:15:00 EST, [place], 1 sprays Topically 2 times a day, 162.56, cm, 02/24/20 9:30:00 EDT, Height Start Date: 12/01/20 Status: Ordered TUSSIN DM TUSSIN KUSHAL, See Instructions, # 420 mL, Refills 1, Tot. Refills 1, Maintenance, 10 ML PO Q4H PRN FORCOUGH AT BEDTIME PER DR CRANE FAX [phone], 05/22/20 8:48:00 EDT, [facility], 162.56, cm, 02/24/20 [...] Confirmed Active Vitamin D deficiency Confirmed Active 40775; repeat 2020 2colo 2006 nl, repeat 2015 3Colonoscopy 2016 positive polyp, repeat 2020. 4colo 2015 Social History Social History Type Response Smoking Status Never smoker entered on: 02/01/16 Sex Patient Care team information Care Team Personnel Name: Rosa Maria HUSTON, Schuyler Pope Position: [facility] Physician - Primary Care Member Role: PCP Address: Address: [address] [place] [address]- Care Team Related Persons Name: ELLE ALMEIDA Address: home [address] [place] [id number] Name: ZAK SHELL
--- OUTSIDE RECORDS SUMMARY | 2024-04-02 09:40 | XMS_ITS | Continuity of Care Document ---
Author Organization [facility] Todd lt Address [address] [place] [address]- Care Team Providers Care Driver/Guide Name Role Phone Schuyler Crane MD Primary Care Physician [facility] 04[facility]14[facility]21 - 05/14/21 [facility] Adult [address] [place] [address]- Allergies, Adverse Reactions, Alerts Substance Reaction Severity [...] Given Tetanus-Diphth Toxoids, Adult (oldterm) 08/25/04 Vishal sunitalea 1Result Comment: [10/28/2016] pharmacy 2Admin Note: [...] 04/01/21 15:49:00 EDT, Route to Pharmacy Electronically, [facility], 162.56, cm, 02/25/21 9:29:00 EDT, Height Start Date: 04/01/21 Status: Ordered ANTACID 500 MG CHEWABLE TAB ANTACID 500 MG CHEWABLE TAB, See Instructions, # 90 each, Refills 3, Tot. Refills 3, Maintenance, TAKE 1 TABLET PO TID FOR OSTEOPOROSIS. MAY CRUSH TABLET PER DR CRANE FX [phone], 07/20/18 12:11:49EDT, Compound Start Date: 07/20/18 Status: Ordered bisacodyl 10 mg rectal suppository See Instructions, INSERT 1 SUPP (10MG) INTO RECTUM NEEDED IF MILK OF MAGNESIA INEFFECTIVE AFTER 8 HRS/BISAC- EVAC EQUIVALENT/ IF SUPPOSITORY INEFFECTIVE AFTER 4 HRS CALL , # 7 supp, 11 Refills, Acute, [facility], 162.56, cm, 02/25/21 9:29:00... Start Date: 04/15/21 Status: Ordered Blood Pressure Monitor See Instructions, 1, 0, 0, 06/11/07 11:11:37, PRN, HTN, ADS OPPTHS, [facility] [id number] [place] [address] Start Date: 06/11/07 Status: Ordered calcium carbonate 500 mg (200 mg elemental calcium) oral tablet, chewable 500 mg, 1, tablet, By Mouth, 3 times a day, PER DR CRANE, # 90 tablet, Refills 5, Tot. Refills 5, Maintenance, 04/02/21 14:35:00 EDT, Route to Pharmacy Electronically, [facility], 162.56, cm, 02/25/21 9:29:00 EDT, Height Start Date: 04/02/21 Stop Date: 09/29/21 Status: Ordered cetirizine 10 mg oral tablet See Instructions, TAKE 1 TABLET (10 MG) BY MOUTH DAILY IN THE AM FOR SEASONAL ALLERGIES FROM DECEMBER THROUGH JUNE (START 12/24) SEE ANCILLARY ORDERS, # 30 tablet, 5 Refills, Maintenance, [facility], 162.56, cm, 02/25/21 9:29:00 EDT, He... Start Date: 02/25/21 Status: Ordered cetirizine 10 mg oral tablet 1 tablet, By Mouth, Daily in AM, FOR SEASONAL ALLERGIES FROM DECEMBER THROUGH JUNE (START 12/24) SEE ANCILLARY ORDERS., # 30 tablet, 5 Refills, Maintenance, 02/25/21 13:04:00 EDT, [facility], 162.56, cm, 02/25/21 9:29:00 EDT, Height [...] Gm, 11 Refills, Maintenance, 08/07/20 11:11:00 EST, [facility], 30, USE 1/4 INCH OF GEL TO BRUSH TEETH DAILY IN THE EVENING / BRUSH T... Start Date: 08/07/20 Status: Ordered docusate sodium 100 mg oral capsule 1 capsule, By Mouth, 2 times a day, # 60 capsule, 5 Refills, Maintenance, 01/28/21 15:23:00 EDT, [facility], 162.56, cm, 02/24/20 9:30:00 EDT, Height Start Date: 01/28/21 Status: Ordered EARWAX TREATMENT DROPS 6.5% EARWAX TREATMENT DROPS 6.5%, See Instructions, # 1 each, Refills 11, Tot. Refills 11, Maintenance, USE DIRECTED FAX [phone], 12/02/20 14:40:00 EST, [facility], 162.56, cm, 02/24/20 9:30:00 EDT, Height Start Date: 12/02/20 Status: Ordered Milk of Magnesia 8% oral suspension See Instructions, TAKE 2 TABLESPOONFULS (30 ML) BY MOUTH AT BEDTIME NEEDED FOR CONSTIPATION ON DAY 3 OF NO BM / SEE BISCOLAX SUPP ORDER 30ML=2,400MG, # 300 mL, 5 Refills, Acute, [facility], 162.56, cm, 02/24/20 9:30:00 EDT, Height Start Date: 10/30/20 Status: Ordered MILLITRIUM TABLET See Instructions, 30, 11, 11, 06/20/08 13:07:29, TAKE 1 TABLET BY MOUTH DAILY (VITAMIN), [address] [address], Constant Indicator, MILLITRIUM TABLET Start Date: 06/20/08 [...] bid prn nasal dryness PER DAWIT [employer]ORE[employer] SOLE ASSESSOR-C FAX [phone], 11/02/18 14:15:30 EST, Compound Start Date: 11/02/18 Status: Ordered Ocuflox 0.3% solution 2 drops, Eyes, Both, 4 times a day, # 10 mL, 0 Refills, Maintenance, 01/10/17 14:21:09, Ophth Solution, 2 drops Eyes, Both 4 times a day Start Date: 01/10/17 Status: Ordered Polysporin 500 u-19122 u/gm ointment See Instructions, APPLY A THIN LAYER TOPICALLY TWICE DAILY NEEDED TO RED, IRRITATED SKIN X 7 DAYS / SEE ANCILLARY ORDERS (BACITRACIN-POLYMYXIN OINTMENT), # 28.3 Gm, 5 Refills, Maintenance, 04/14/21 14:39:00 EDT, [facility], 7, APPLY A THIN LAY... Start Date: 04/14/21 Status: Ordered pravastatin 40 mg oral tablet 1 tablet, By Mouth, Daily, IN PM FOR HYPERLIPIDEMIA., # 30 tablet, 5 Refills, Maintenance, 03/05/2111:55:00 EDT, [facility], 162.56, cm, 02/25/21 9:29:00 EDT, Height [...] MG Q6H PRN PER DR CRANE FAX [phone], 02/01/19 9:46:36 EDT, Compound Start Date: 02/01/19 Status: Ordered Suphedrin 30 mg oral tablet See Instructions, TAKE 1 TAB (30 MG) BY MOUTH EVERY 6 HRS NEEDED FOR NASAL CONGESTION/ SEE ANCILLARY ORDERS (SUDOGEST EQUIVALENT), # 30 tablet, 11 Refills, Acute, [facility], 162.56, cm, 02/24/20 9:30:00 EDT, Height Start Date: 05/22/20 Status: Ordered THERA CAPLETS THERA CAPLETS, See Instructions, # 30 each, Refills 5, Tot. Refills 5, Maintenance, TAKE ONE CAPLETBY MOUTH QD PER DR CRANE FAX [phone], 10/08/20 11:48:00 EST, [facility], 162.56, cm, 02/24/20 9:30:00 EDT, Height Start Date: 10/08/20 Status: Ordered Thera oral tablet 1 tablet, By Mouth, Daily in AM, VITAMIN., # 30 tablet, 5 Refills, Maintenance, 03/05/21 11:55:00 EDT, [facility], 30, TAKE 1 TABLET BY MOUTH DAILY IN THE AM (VITAMIN), 162.56, cm, 02/25/21 9:29:00 EDT, Height Start Date: 03/05/21 Status: Ordered Tinactin 1% spray 1 sprays, Topically, 2 times a day, # 120 mL, 1 Refills, Maintenance, 12/01/20 8:15:00 EST, [place], [facility], 1 sprays Topically 2 times a day, 162.56, cm, 02/24/20 9:30:00 EDT, Height Start Date: 12/01/20 Status: Ordered KAILYNIN KUSHAL FATIMA, See Instructions, # 420 mL, Refills 1, Tot. Refills 1, Maintenance, 10 ML PO Q4H PRN FORCOUGH AT BEDTIME PER DR CRANE FAX [phone], 05/22/20 8:48:00 EDT, Compound, 162.56, cm, 02/24/20 9:30:00 EDT, Height Start Date: 05/22/20 Status: Ordered Tylenol 325 mg oral tablet 650 mg, 2, tablet, By Mouth, Every 4 hours, PER DR CRANE, # 168 tablet, Refills 5, Tot. Refills 5, Maintenance, 10/04/19 10:27:00 EST, Route to Pharmacy Electronically, [facility], 162.56, cm, 02/12/19 10:36:00 EDT, Height [...] Active Underweight(Confirmed) Active Vitamin D deficiency(Confirmed) Active 70932; repeat 2020 2colo 2006 nl, repeat 2015 3Colonoscopy 2016 positive polyp, repeat 2020. 4colo 2015 Social History Social History Type Response Smoking Status Never smoker entered on: 02/01/16 Sex
--- OUTSIDE RECORDS SUMMARY | 2024-04-02 09:40 | XMS_ITS | Continuity of Care Document ---
Author Organization [facility] Todd lt Address [address] [place] [address]- Care Team Providers Care Rough Carpenter Name Role Phone Schuyler Crane MD Primary Care Physician [phone] Encounter [facility] Date(s): 03/03/21 - 04/02/21 [facility] [address] [place] [address]- Allergies, Adverse Reactions, Alerts Substance Reaction Severity [...] 04/01/21 15:49:00 EDT, Route to Pharmacy Electronically, [facility], 162.56, cm, 02/25/21 9:29:00 EDT, Height Start Date: 04/01/21 Status: Ordered ANTACID 500 MG CHEWABLE TAB ANTACID 500 MG CHEWABLE TAB, See Instructions, # 90 each, Refills 3, Tot. Refills 3, Maintenance, TAKE 1 TABLET PO TID FOR OSTEOPOROSIS. MAY CRUSH TABLET PER DR CRANE FX [phone], 07/20/18 12:11:49EDT, Compound Start Date: 07/20/18 Status: Ordered Bisco-Lax 10 mg rectal suppository See Instructions, INSERT 1 SUPP (10MG) INTO RECTUM NEEDED IF MILK OF MAGNESIA INEFFECTIVE AFTER 8 HRS/BISAC- EVAC EQUIVALENT/ IF SUPPOSITORY INEFFECTIVE AF, # 7 supp, 11 Refills, Acute, [facility], 162.56, cm, 02/24/20 9:30:00 EDT, Height Start Date: 03/30/20 Status: Ordered Blood Pressure Monitor See Instructions, 1, 0, 0, 06/11/07 11:11:37, PRN, HTN, ADS OPPTHS, [facility] [id number] [place] [address] Start Date: 06/11/07 Status: Ordered calcium carbonate 500 mg (200 mg elemental calcium) oral tablet, chewable 500 mg, 1, tablet, By Mouth, 3 times a day, PER DR CRANE, # 90 tablet, Refills 5, Tot. Refills 5, Maintenance, 04/02/21 14:35:00 EDT, Route to Pharmacy Electronically, [facility], 162.56, cm, 02/25/21 9:29:00 EDT, Height Start Date: 04/02/21 Stop Date: 09/29/21 Status: Ordered cetirizine 10 mg oral tablet See Instructions, TAKE 1 TABLET (10 MG) BY MOUTH DAILY IN THE AM FOR SEASONAL ALLERGIES FROM DECEMBER THROUGH JUNE (START 12/24) SEE ANCILLARY ORDERS, # 30 tablet, 5 Refills, Maintenance, [facility], 162.56, cm, 02/25/21 9:29:00 EDT, He... Start Date: 02/25/21 Status: Ordered cetirizine 10 mg oral tablet 1 tablet, By Mouth, Daily in AM, FOR SEASONAL ALLERGIES FROM DECEMBER THROUGH JUNE (START 12/24) SEE ANCILLARY ORDERS., # 30 tablet, 5 Refills, Maintenance, 02/25/21 13:04:00 EDT, [facility], 162.56, cm, 02/25/21 9:29:00 EDT, Height [...] Gm, 11 Refills, Maintenance, 08/07/20 11:11:00 EST, [facility], 30, USE 1/4 INCH OF GEL TO BRUSH TEETH DAILY IN THE EVENING / BRUSH T... Start Date: 08/07/20 Status: Ordered docusate sodium 100 mg oral capsule 1 capsule, By Mouth, 2 times a day, # 60 capsule, 5 Refills, Maintenance, 01/28/21 15:23:00 EDT, [facility], 162.56, cm, 02/24/20 9:30:00 EDT, Height Start Date: 01/28/21 Status: Ordered EARWAX TREATMENT DROPS 6.5% EARWAX TREATMENT DROPS 6.5%, See Instructions, # 1 each, Refills 11, Tot. Refills 11, Maintenance, USE DIRECTED FAX [phone], 12/02/20 14:40:00 EST, [facility], 162.56, cm, 02/24/20 9:30:00 EDT, Height Start Date: 12/02/20 Status: Ordered Milk of Magnesia 8% oral suspension See Instructions, TAKE 2 TABLESPOONFULS (30 ML) BY MOUTH AT BEDTIME NEEDED FOR CONSTIPATION ON DAY 3 OF NO BM / SEE BISCOLAX SUPP ORDER 30ML=2,400MG, # 300 mL, 5 Refills, Acute, [facility], 162.56, cm, 02/24/20 9:30:00 EDT, Height Start Date: 10/30/20 Status: Ordered MILLITRIUM TABLET See Instructions, 30, 11, 11, 06/20/08 13:07:29, TAKE 1 TABLET BY MOUTH DAILY (VITAMIN), [address] [address], Constant Indicator, MILLITRIUM TABLET Start Date: 06/20/08 [...] bid prn nasal dryness PER DAWIT [employer]ORE[employer] OFFENDER [employer]ENTION SPECIALIST-C FAX [phone], 11/02/18 14:15:30 EST, Compound Start Date: 11/02/18 Status: Ordered Ocuflox 0.3% solution 2 drops, Eyes, Both, 4 times a day, # 10 mL, 0 Refills, Maintenance, 01/10/17 14:21:09, Ophth Solution, 2 drops Eyes, Both 4 times a day Start Date: 01/10/17 Status: Ordered Polysporin 500 u-74310 u/gm ointment See Instructions, APPLY A THIN LAYER TOPICALLY TWICE DAILY NEEDED TO RED, IRRITATED SKIN X 7 DAYS / SEE ANCILLARY ORDERS (BACITRACIN-POLYMYXIN OINTMENT), # 28.3 Gm, 5 Refills, Acute, [facility], 7, APPLY A THIN LAYER TOPICALLY TWICE DAILY N... Start Date: 03/30/20 Status: Ordered Polysporin 500 u-73076 u/gm ointment See Instructions, APPLY A THIN LAYER TOPICALLY TWICE DAILY NEEDED TO RED, IRRITATED SKIN X 7 DAYS / SEE ANCILLARY ORDERS (BACITRACIN-POLYMYXIN OINTMENT), # 28.3 Gm, 5 Refills, Acute, [facility], 7, APPLY A THIN LAYER TOPICALLY TWICE DAILY N... Start Date: 03/30/20 Status: Ordered pravastatin 40 mg oral tablet 1 tablet, By Mouth, Daily, IN PM FOR HYPERLIPIDEMIA., # 30 tablet, 5 Refills, Maintenance, 03/05/2111:55:00 EDT, [facility], 162.56, cm, 02/25/21 9:29:00 EDT, Height [...] MG Q6H PRN PER DR CRANE FAX [phone], 02/01/19 9:46:36 EDT, Compound Start Date: 02/01/19 Status: Ordered Suphedrin 30 mg oral tablet See Instructions, TAKE 1 TAB (30 MG) BY MOUTH EVERY 6 HRS NEEDED FOR NASAL CONGESTION/ SEE ANCILLARY ORDERS (SUDOGEST EQUIVALENT), # 30 tablet, 11 Refills, Acute, [facility], 162.56, cm, 02/24/20 9:30:00 EDT, Height Start Date: 05/22/20 Status: Ordered THERA CAPLETS THERA CAPLETS, See Instructions, # 30 each, Refills 5, Tot. Refills 5, Maintenance, TAKE ONE CAPLETBY MOUTH QD PER DR CRANE FAX [phone], 10/08/20 11:48:00 EST, [facility], 162.56, cm, 02/24/20 9:30:00 EDT, Height Start Date: 10/08/20 Status: Ordered Thera oral tablet 1 tablet, By Mouth, Daily in AM, VITAMIN., # 30 tablet, 5 Refills, Maintenance, 03/05/21 11:55:00 EDT, [facility], 30, TAKE 1 TABLET BY MOUTH DAILY IN THE AM (VITAMIN), 162.56, cm, 02/25/21 9:29:00 EDT, Height Start Date: 03/05/21 Status: Ordered Tinactin 1% spray 1 sprays, Topically, 2 times a day, # 120 mL, 1 Refills, Maintenance, 12/01/20 8:15:00 EST, [place], [facility], 1 sprays Topically 2 times a day, 162.56, cm, 02/24/20 9:30:00 EDT, Height Start Date: 12/01/20 Status: Ordered TUSSIN DM TUSSIN DM, See Instructions, # 420 mL, Refills 1, Tot. Refills 1, Maintenance, 10 ML PO Q4H PRN FORCOUGH AT BEDTIME PER DR CRANE FAX [phone], 05/22/20 8:48:00 EDT, Compound, 162.56, cm, 02/24/20 9:30:00 EDT, Height Start Date: 05/22/20 Status: Ordered Tylenol 325 mg oral tablet 650 mg, 2, tablet, By Mouth, Every 4 hours, PER DR CRANE, # 168 tablet, Refills 5, Tot. Refills 5, Maintenance, 10/04/19 10:27:00 EST, Route to Pharmacy Electronically, [facility], 162.56, cm, 02/12/19 10:36:00 EDT, Height [...] Active Underweight(Confirmed) Active Vitamin D deficiency(Confirmed) Active 31126; repeat 2020 2colo 2006 nl, repeat 2015 3Colonoscopy 2016 positive polyp, repeat 2020. 4colo 2015 Social History Social History Type Response Smoking Status Never smoker entered on: 02/01/16 Sex
--- OUTSIDE RECORDS SUMMARY | 2024-04-02 09:40 | XMS_ITS | Continuity of Care Document ---
Author Organization [facility] Todd lt Address [address] [place] [address]- Care Team Providers Care Court Interpreter Name Role Phone Schuyler Crane MD Primary Care Physician Encounter [facility] Date(s): 09/19/23 - 09/26/23 [facility] operated [facility] Adult [address] [place] [address]- Encounter Diagnosis Conjunctivitis(Discharge Diagnosis) - 09/19/23 Hypertension(Discharge Diagnosis) - 09/19/23 Attending Physician: Monty Stafford DO Referring Physician: Schuyler Crane MD Allergies, Adverse [...] 08/25/04 G iven 1Result Comment: Td - [facility]# [id number] 2Result Comment: PCV23 - [facility]# [id number] 3Result Comment: [facility]# [id number] 4Result Comment: [10/28/2016] pharmacy 5Admin Note: given [...] 10/14/22 8:03:00 EST, Route to Pharmacy Electronically, [facility], 162.56, cm, 07/04/22 8:33:00 EDT, Height Start Date: 10/14/22 Status: Ordered All Day Allergy 10 mg oral tablet See Instructions, TAKE 1 TABLET (10 MG) BY MOUTH DAILY IN THE AM FOR SEASONAL ALLERGIES FROM DECEMBER THROUGH JUNE (START 12/24 / END 07/25) SEE ANCILLARY ORDERS, # 30 tablet, 2 Refills, Maintenance, 04/13/23 14:33:00 EDT, [facility], 162.56, cm, 0... Start Date: 04/13/23 Status: Ordered amLODIPine 10 mg oral tablet 1 tablet, By Mouth, Daily in AM, FOR HYPERTENSION., # 30 tablet, 5 Refills, Maintenance, 04/19/23 23:11:00 EDT, [facility], 162.56, cm, 04/10/23 7:35:00 EDT, Height Start Date: 04/19/23 Status: Ordered ANTACID 500 MG CHEWABLE TAB ANTACID 500 MG CHEWABLE TAB, See Instructions, # 90 each, Refills 3, Tot. Refills 3, Maintenance, TAKE 1 TABLET PO TID FOR OSTEOPOROSIS. MAY CRUSH TABLET PER DR ROSA MARIA CRUZ [phone], 07/20/18 12:11:49EDT, Compound Start Date: 07/20/18 Status: Ordered benzonatate 100 mg oral capsule 1 capsule, By Mouth, 3 times a day, PRN NEEDED FOR COUGH / IF NO IMPROVEMENT IN 3 DAYS NOTIFY MD/ ICJAGRUTI, # 21 capsule, 0 Refills, Maintenance, 02/17/23 8:57:00 EDT, [facility], 162.56, cm, 07/04/22 8:33:00 EDT, Height Start Date: 02/17/23 Status: Ordered bisacodyl 10 mg rectal suppository See Instructions, INSERT 1 SUPP (10MG) INTO RECTUM NEEDED IF MILK OF MAGNESIA INEFFECTIVE AFTER 8 HRS/BISAC- EVAC EQUIVALENT/ IF SUPPOSITORY INEFFECTIVE AFTER 4 HRS CALL MD, # 7 supp, 11 Refills, Acute, [facility], 162.56, cm, 02/25/21 9:29:00... Start Date: 04/15/21 Status: Ordered Blood Pressure Monitor See Instructions, 1, 0, 0, 06/11/07 11:11:37, PRN, HTN, ADS OPPTHS, [facility] [id number] [place] [address] Start Date: 06/11/07 Status: Ordered calcium carbonate 500 mg (200 mg elemental calcium) oral tablet, chewable 1, tablet, By Mouth, 3 times a day, CRUSH. IC: CALCIUM CARBONATE, # 90 tablet, Refills 5, Maintenance, 02/17/23 8:57:00 EDT, Route to Pharmacy Electronically, [facility], 162.56, cm, 07/04/22 8:33:00 EDT, Height Start Date: 02/17/23 Status: Ordered carbamide peroxide 6.5% otic solution See Instructions, INSTILL 4 DROPS INTO EACH EAR TWICE DAILY FOR 5 DAYS EACH MONTH / IC: CARBAMIDE PEROXIDE (EAR DROPS 6.5%), # 15 mL, 11 Refills, Maintenance, 09/01/23 9:17:00 EST, [facility], 30, INSTILL 4 DROPS INTO EACH [...] capsule, 5 Refills, Maintenance, 06/06/23 14:01:00 EDT, [facility], 162.56, cm, 05/15/23 9:41:00 EDT, Height Start Date: 06/06/23 Status: Ordered EARWAX TREATMENT DROPS 6.5% EARWAX TREATMENT DROPS 6.5%, See Instructions, # 1 each, Refills 11, Tot. Refills 11, Maintenance, USE DIRECTED FAX [phone], 12/02/20 14:40:00 EST, [facility], 162.56, cm, 02/24/20 9:30:00 EDT, Height Start Date: 12/02/20 Status: Ordered fluoride 1.1% topical gel See Instructions, USE 1/4 INCH OF GEL TO BRUSH TEETH DAILY IN THE EVENING / BRUSH THOROUGHLY ALONG GUMLINE IC: DENTAGEL, # 56 Gm, 11 Refills, Maintenance, 09/21/23 16:44:00 EST, [facility], 30, USE 1/4 INCH OF GEL TO BRUSH TEETH DAILY IN THE EVEN... Start Date: 09/21/23 Status: Ordered Carolyn-jag 8.6 mg oral tablet 1 tablet, By Mouth, Daily in PM, FOR CONSTIPATION / SEE MILK OF MAG ORDERS / IC: SENNA 8.6 MG, # 15tablet, 6 Refills, Maintenance, 10/14/22 8:03:00 EST, [facility], 162.56, cm, 07/04/22 8:33:00EDT, Height Start Date: 10/14/22 Status: Ordered Hospital Bed See Instructions, # 1 each, Refills 0, Tot. Refills 0, Maintenance, [facility] DX: Left hip fracture, seizure dis, impulse control disorder, atypical autism. Duration ongoing NPI#[id number] Height: 5'6 Weight: 137lbs, 03/22/23 13:55:... Start Date: 03/22/23 Status: Ordered Milk of Magnesia 8% oral suspension See Instructions, TAKE 2 TABLESPOONFULS (30 ML) BY MOUTH AT BEDTIME NEEDED FOR CONSTIPATION ON DAY 3 OF NO BM / SEE BISCOLAX SUPP ORDER 30ML=2,400MG, # 300 mL, 5 Refills, Acute, [facility], 162.56, cm, 02/24/20 9:30:00 EDT, Height Start Date: 10/30/20 Status: Ordered MILLITRIUM TABLET See Instructions, 30, 11, 11, 06/20/08 13:07:29, TAKE 1 TABLET BY MOUTH DAILY (VITAMIN), [facility] [address] [place] [address], Constant Indicator, MILLITRIUM TABLET Start Date: 06/20/08 Status: Ordered OCEAN SALINE NASAL MIST OCEAN SALINE NASAL MIST, See Instructions, # 1 each, Refills 2, Tot. Refills 2, Maintenance, use bid prn nasal dryness, 11/06/18 9:57:36 EST, Compound Start Date: 11/06/18 Status: Ordered Polysporin 500 u-13969 u/gm ointment See Instructions, APPLY A THIN LAYER TOPICALLY TWICE DAILY NEEDED TO RED, IRRITATED SKIN X 7 DAYS / SEE ANCILLARY ORDERS (BACITRACIN-POLYMYXIN OINTMENT), # 28.3 Gm, 5 Refills, Maintenance, 04/18/23 8:59:00 EDT, [facility], 7, APPLY A THIN LAYE... Start Date: 04/18/23 Status: Ordered pravastatin 40 mg oral tablet See Instructions, TAKE 1 TABLET (40 MG) BY MOUTH DAILY IN PM FOR HYPERLIPIDEMIA, # 30 tablet, 5 Refills, Maintenance, 02/17/23 13:00:00 EDT, [facility], 162.56, cm, 07/04/22 8:33:00 EDT, Height Start Date: 02/17/23 Status: Ordered Profola oral tablet 1 tablet, By Mouth, Daily, # 30 tablet, 11 Refills, Maintenance, 05/19/23 10:41:00 EDT, [facility], Partial fill upon patient request if [...] (SUPHEDRIN EQUIVALENT), # 30 tablet, 11 Refills, [facility], 162.56, cm, 03/24/22 10:31:00 EDT, Height Start Date: 04/22/22 Status: Ordered SUDOGEST 30 MG TABLETS SUDOGEST 30 MG TABLETS, See Instructions, # 30 each, Refills 11, Tot. Refills 11, Maintenance, TAKE30 MG Q6H PRN PER DR CRANE FAX [phone], 02/01/19 9:46:36 EDT, Compound Start Date: 02/01/19 [...] mL, 1 Refills, Maintenance, 12/01/20 8:15:00 EST, [facility], 1 sprays Topically 2 times a day, 162.56, cm, 02/24/20 9:30:00 EDT, Height Start Date: 12/01/20 Status: Ordered JAMAL FATIMA, See Instructions, # 420 mL, Refills 1, Tot. Refills 1, Maintenance, 10 ML PO Q4H PRN FORCOUGH AT BEDTIME PER DR CRANE FAX [phone], 05/22/20 8:48:00 EDT, [facility], 162.56, cm, 02/24/20 [...] Confirmed Active Vitamin D deficiency Confirmed Active 38597; repeat 2020 2colo 2005 nl, repeat 2015 3Colonoscopy 2016 positive polyp, repeat 2020. 4colo 2015 Diagnosis Diagnosis Type Effective Dates Health Status Cl inical Service Informant Conjunctivitis Discharge Diagnosis 09/19/23 Hypertension Discharge Diagnosis 09/19/23 Vital Signs Most recent to oldest [Reference Range]: 1 2 Height 162.56 cm (09/19/23 10:28 AM) 162.56 cm (09/19/23 10:10 AM) Weight 63.2 kg (09/19/23 10:10 AM) Pulse Rate [55-90 bpm] 112 bpm *H* (09/19/23 10:10 AM) Body Mass Index [18.5-24.99 kg/m2] 23.92 kg/m2 (09/19/23 10:10 AM) Blood Pressure [90-138/55-84 mm Hg] 140/ 62mm Hg *H* (09/19/23 10:28 AM) 147/65mm Hg *H* (09/19/23 10:10 AM) Blood pressure sites Arm, right (09/19/23 10:10 AM) Social History Social History Type Response Smoking Status Never smoker entered on: 02/01/16 Sex Patient Care team information Care Team Personnel Name: Rosa Maria HUSTON, Schuyler Pope Position: S Physician - Primary Care Member Role: PCP Address: Address: [address] [place] [address]- Care Team Related Persons Name: ELLE ALMEIDA Address: home [address] [place] [id number] Name: ZAK SHELL
--- OUTSIDE RECORDS SUMMARY | 2024-04-02 09:40 | XMS_ITS | Continuity of Care Document ---
Author Organization [facility] Todd lt Address [address] [place] [address]- Care Team Providers Care Manager Social Responsibility Name Role Phone Schuyler Crane MD Primary Care Physician [facility]counter [facility] Date(s): 05/18/23 - 06/17/23 [facility] [address] [place] [address]- Allergies, Adverse Reactions, Alerts Substance Reaction Severity [...] Re corded influenza virus vaccine, inactivated 08/03/15 Alcieds rded influenza virus vaccine, inactivated 07/15/14 Give [...] 08/25/04 G cristy 1Result Comment: Td - [facility]# [id number] 2Result Comment: PCV23 - [facility]# [id number] 3Result Comment: [facility]# [id number] 4Result Comment: [10/28/2016] pharmacy 5Admin Note: given [...] 10/14/22 8:03:00 EST, Route to Pharmacy Electronically, [facility], 162.56, cm, 07/04/22 8:33:00 EDT, Height Start Date: 10/14/22 Status: Ordered All Day Allergy 10 mg oral tablet See Instructions, TAKE 1 TABLET (10 MG) BY MOUTH DAILY IN THE AM FOR SEASONAL ALLERGIES FROM DECEMBER THROUGH JUNE (START 12/24 / END 07/25) SEE ANCILLARY ORDERS, # 30 tablet, 2 Refills, Maintenance, 04/13/23 14:33:00 EDT, [facility], 162.56, cm, 0... Start Date: 04/13/23 Status: Ordered amLODIPine 10 mg oral tablet 1 tablet, By Mouth, Daily in AM, FOR HYPERTENSION., # 30 tablet, 5 Refills, Maintenance, 04/19/23 23:11:00 EDT, [facility], 162.56, cm, 04/10/23 7:35:00 EDT, Height Start Date: 04/19/23 Status: Ordered ANTACID 500 MG CHEWABLE TAB ANTACID 500 MG CHEWABLE TAB, See Instructions, # 90 each, Refills 3, Tot. Refills 3, Maintenance, TAKE 1 TABLET PO TID FOR OSTEOPOROSIS. MAY CRUSH TABLET PER DR ROSA MARIA CRUZ [phone], 07/20/18 12:11:49EDT, Compound Start Date: 07/20/18 Status: Ordered benzonatate 100 mg oral capsule 1 capsule, By Mouth, 3 times a day, PRN NEEDED FOR COUGH / IF NO IMPROVEMENT IN 3 DAYS NOTIFY MD/ IC, JAGRUTI, # 21 capsule, 0 Refills, Maintenance, 02/17/23 8:57:00 EDT, [facility], 162.56, cm, 07/04/22 8:33:00 EDT, Height Start Date: 02/17/23 Status: Ordered bisacodyl 10 mg rectal suppository See Instructions, INSERT 1 SUPP (10MG) INTO RECTUM NEEDED IF MILK OF MAGNESIA INEFFECTIVE AFTER 8 HRS/BISAC- EVAC EQUIVALENT/ IF SUPPOSITORY INEFFECTIVE AFTER 4 HRS CALL MD, # 7 supp, 11 Refills, Acute, [facility], 162.56, cm, 02/25/21 9:29:00... Start Date: 04/15/21 Status: Ordered Blood Pressure Monitor See Instructions, 1, 0, 0, 06/11/07 11:11:37, PRN, HTN, ADS OPPTHS, [facility] [place] [address] Start Date: 06/11/07 Status: Ordered calcium carbonate 500 mg (200 mg elemental calcium) oral tablet, chewable 1, tablet, By Mouth, 3 times a day, CRUSH. IC: CALCIUM CARBONATE, # 90 tablet, Refills 5, Maintenance, 02/17/23 8:57:00 EDT, Route to Pharmacy Electronically, [facility], 162.56, cm, 07/04/22 8:33:00 EDT, Height Start Date: 02/17/23 Status: Ordered carbamide peroxide 6.5% otic solution See Instructions, INSTILL 4 DROPS INTO EACH EAR TWICE DAILY FOR 5 DAYS EACH MONTH / IC: CARBAMIDE PEROXIDE (EAR DROPS 6.5%), # 15 mL, 11 Refills, Maintenance, 08/21/22 7:49:00 EST, [facility], 30, INSTILL 4 DROPS INTO EACH [...] capsule, 5 Refills, Maintenance, 06/06/23 14:01:00 EDT, [facility], 162.56, cm, 05/15/23 9:41:00 EDT, Height Start Date: 06/06/23 Status: Ordered EARWAX TREATMENT DROPS 6.5% EARWAX TREATMENT DROPS 6.5%, See Instructions, # 1 each, Refills 11, Tot. Refills 11, Maintenance, USE DIRECTED FAX [phone], 12/02/20 14:40:00 EST, [facility], 162.56, cm, 02/24/20 9:30:00 EDT, Height Start Date: 12/02/20 Status: Ordered fluoride 1.1% topical gel See Instructions, USE 1/4 INCH OF GEL TO BRUSH TEETH DAILY IN THE EVENING / BRUSH THOROUGHLY ALONG GUMLINE IC: DENTAGEL, # 56 Gm, 11 Refills, [facility], 30, USE 1/4 INCH OF GEL TO BRUSH TEETH DAILY IN THE EVENING / BRUSH THOROUGHLY ALONG GUMLINE... Start Date: 01/28/22 Status: Ordered Carolyn-jag 8.6 mg oral tablet 1 tablet, By Mouth, Daily in PM, FOR CONSTIPATION / SEE MILK OF MAG ORDERS / IC: SENNA 8.6 MG, # 15tablet, 6 Refills, Maintenance, 10/14/22 8:03:00 EST, [facility], 162.56, cm, 07/04/22 8:33:00EDT, Height Start Date: 10/14/22 Status: Ordered Hospital Bed See Instructions, # 1 each, Refills 0, Tot. Refills 0, Maintenance, [facility] DX: Left hip fracture, seizure dis, impulse control disorder, atypical autism. Duration ongoing NPI#[id number] Height: 5'6 Weight: 137lbs, 03/22/23 13:55:... Start Date: 03/22/23 Status: Ordered Milk of Magnesia 8% oral suspension See Instructions, TAKE 2 TABLESPOONFULS (30 ML) BY MOUTH AT BEDTIME NEEDED FOR CONSTIPATION ON DAY 3 OF NO BM / SEE BISCOLAX SUPP ORDER 30ML=2,400MG, # 300 mL, 5 Refills, Acute, [facility], 162.56, cm, 02/24/20 9:30:00 EDT, Height Start Date: 10/30/20 Status: Ordered MILLITRIUM TABLET See Instructions, 30, 11, 11, 06/20/08 13:07:29, TAKE 1 TABLET BY MOUTH DAILY (VITAMIN), [address] [address], Constant Indicator, MILLITRIUM TABLET Start Date: 06/20/08 Status: Ordered OCEAN SALINE NASAL MIST OCEAN SALINE NASAL MIST, See Instructions, # 1 each, Refills 2, Tot. Refills 2, Maintenance, use bid prn nasal dryness, 11/06/18 9:57:36 EST, Compound Start Date: 11/06/18 Status: Ordered Polysporin 500 u-82069 u/gm ointment See Instructions, APPLY A THIN LAYER TOPICALLY TWICE DAILY NEEDED TO RED, IRRITATED SKIN X 7 DAYS / SEE ANCILLARY ORDERS (BACITRACIN-POLYMYXIN OINTMENT), # 28.3 Gm, 5 Refills, Maintenance, 04/18/23 8:59:00 EDT, [facility], 7, APPLY A THIN LAYE... Start Date: 04/18/23 Status: Ordered pravastatin 40 mg oral tablet See Instructions, TAKE 1 TABLET (40 MG) BY MOUTH DAILY IN PM FOR HYPERLIPIDEMIA, # 30 tablet, 5 Refills, Maintenance, 02/17/23 13:00:00 EDT, [facility], 162.56, cm, 07/04/22 8:33:00 EDT, Height Start Date: 02/17/23 Status: Ordered Profola oral tablet 1 tablet, By Mouth, Daily, # 30 tablet, 11 Refills, Maintenance, 05/19/23 10:41:00 EDT, [facility], Partial fill upon patient request if [...] (SUPHEDRIN EQUIVALENT), # 30 tablet, 11 Refills, [facility], 162.56, cm, 03/24/22 10:31:00 EDT, Height Start Date: 04/22/22 Status: Ordered SUDOGEST 30 MG TABLETS SUDOGEST 30 MG TABLETS, See Instructions, # 30 each, Refills 11, Tot. Refills 11, Maintenance, TAKE30 MG Q6H PRN PER DR CRANE FAX [phone], 02/01/19 9:46:36 EDT, Compound Start Date: 02/01/19 [...] mL, 1 Refills, Maintenance, 12/01/20 8:15:00 EST, [place], 1 sprays Topically 2 times a day, 162.56, cm, 02/24/20 9:30:00 EDT, Height Start Date: 12/01/20 Status: Ordered TUSSIN DM TUSSIN DM, See Instructions, # 420 mL, Refills 1, Tot. Refills 1, Maintenance, 10 ML PO Q4H PRN FORCOUGH AT BEDTIME PER DR CRANE FAX [phone], 05/22/20 8:48:00 EDT, [facility], 162.56, cm, 02/24/20 [...] Confirmed Active Vitamin D deficiency Confirmed Active 63682; repeat 2020 2colo 2006 nl, repeat 2016 3Colonoscopy 2016 positive polyp, repeat 2020. 4colo 2015 Social History Social History Type Response Smoking Status Never smoker entered on: 02/01/16 Sex Patient Care team information Care Team Personnel Name: Schuyler Crane MD Position: S Physician - Primary Care Member Role: PCP Address: Address: [address] [place] [address] [place] [address]- Care Team Related Persons Name: ELLE ALMEIDA Address: home [address] [place] [address] [place] [address] Name: ZAK SHELL
--- OUTSIDE RECORDS SUMMARY | 2024-04-02 09:40 | XMS_ITS | Continuity of Care Document ---
Author Organization [facility] Salvatore Todd lt Address [address] [place] [address]- Care Team Providers Care Ticker Wirer Name Role Phone Schuyler Crane MD Primary Care Physician [facility]): 12/20/23 - 01/19/24 [facility] [place] Adult [address] [place] [address]- Allergies, Adverse Reactions, Alerts Substance Reaction Severity Status amoxicillin Active cephalosporins Active Ativan Active Klonopin Wafer Active benzodiazepines Active penicillins Active Immunizations Given and Recorded Vaccine Date [...] 08/25/04 Vishal muniz 1Result Comment: Td - [facility]# [id number] 2Result Comment: PCV23 - [facility]# [id number] 3Result Comment: [facility]# [id number] 4Result Comment: [10/28/2016] pharmacy 5Admin Note: given [...] 10/14/22 8:03:00 EST, Route to Pharmacy Electronically, [facility], 162.56, cm, 07/04/22 8:33:00 EDT, Height Start Date: 10/14/22 Status: Ordered acetaminophen 325 mg oral tablet 2, tablet, By Mouth, 2 times a day, PRN, # 20 tablet, Refills 0, Tot. Refills 0, Maintenance, NEEDED, 12/12/23 11:09:00 EDT, Route to Pharmacy Electronically, [facility], 162.56, cm, 12/11/2409:47:00 EDT, Height Start Date: 12/12/23 Stop Date: 12/17/23 Status: Ordered All Day Allergy 10 mg oral tablet 1 tablet, By Mouth, Daily in AM, FOR SEASONAL ALLERGIES FROM DECEMBER THROUGH JUNE (START 12/24 / ) SEE ANCILLARY ORDERS., # 30 tablet, 11 Refills, Maintenance, 12/21/23 7:45:00 EDT, [facility], 162.56, cm, 12/12/23 10:47:00 EDT, Height Start Date: 12/21/23 Status: Ordered amLODIPine 10 mg oral tablet 1 tablet, By Mouth, Daily in AM, FOR HYPERTENSION., # 30 tablet, 5 Refills, Maintenance, 10/25/23 0:22:00 EST, [facility], 162.56, cm, 10/03/23 9:00:00 EST, Height Start Date: 10/25/23 Status: Ordered ANTACID 500 MG CHEWABLE TAB ANTACID 500 MG CHEWABLE TAB, See Instructions, # 90 each, Refills 3, Tot. Refills 3, Maintenance, TAKE 1 TABLET PO TID FOR OSTEOPOROSIS. MAY CRUSH TABLET PER DR ROSA MARIA CRUZ [phone], 07/20/18 12:11:49EDT, Compound Start Date: 07/20/18 Status: Ordered benzonatate 100 mg oral capsule 1 capsule, By Mouth, 3 times a day, PRN NEEDED FOR COUGH / IF NO IMPROVEMENT IN 3 DAYS NOTIFY MD/ IC, JAGRUTI, # 21 capsule, 0 Refills, Maintenance, 10/05/23 12:01:00 EST, [facility], 162.56, cm, 10/03/23 9:00:00 EST, Height Start Date: 10/05/23 Status: Ordered bisacodyl 10 mg rectal suppository See Instructions, INSERT 1 SUPP (10MG) INTO RECTUM NEEDED IF MILK OF MAGNESIA INEFFECTIVE AFTER 8 HRS/BISAC- EVAC EQUIVALENT/ IF SUPPOSITORY INEFFECTIVE AFTER 4 HRS CALL MD, # 7 supp, 11 Refills, Acute, [facility], 162.56, cm, 02/25/21 9:29:00... Start Date: 04/15/21 Status: Ordered Blood Pressure Monitor See Instructions, 1, 0, 0, 06/11/07 11:11:37, PRN, HTN, ADS OPPTHS, [facility] [id number] [place] [address] Start Date: 06/11/07 Status: Ordered calcium carbonate 500 mg (200 mg elemental calcium) oral tablet, chewable 1, tablet, By Mouth, 3 times a day, CRUSH. IC: CALCIUM CARBONATE, # 90 tablet, Refills 5, Maintenance, 10/02/23 8:50:00 EST, Route to Pharmacy Electronically, [facility], 162.56, cm, 09/19/23 10:28:00 EST, Height Start Date: 10/02/23 Status: Ordered carbamide peroxide 6.5% otic solution See Instructions, INSTILL 4 DROPS INTO EACH EAR TWICE DAILY FOR 5 DAYS EACH MONTH / IC: CARBAMIDE PEROXIDE (EAR DROPS 6.5%), # 15 mL, 11 Refills, Maintenance, 09/01/23 9:17:00 EST, [facility], 30, INSTILL 4 DROPS INTO EACH EAR TWICE DAILY FOR 5 D... Start Date: 09/01/23 Status: Ordered ciprofloxacin 500 mg oral tablet 1 tablet = 500 mg, By Mouth, 2 times a day, for 7 days, # 14 tablet, 0 Refills, Acute 01/25/24 10:28:00 EDT, 01/18/24 10:28:00 EDT, Tablet, [facility], Partial fill upon patient request if the prescription is for a schedule II opioid drug., 162.5... Start Date: 01/18/24 Stop Date: 01/25/24 Status: Ordered citalopram 10 mg oral tablet 10 mg, 1, tablet, By Mouth, Daily, # 30 tablet, Refills 0, Maintenance, 02/12/19 10:28:32 EDT Start Date: 02/12/19 Status: Ordered docusate sodium 100 mg oral capsule See Instructions, TAKE 1 CAPSULE (100 MG) BY MOUTH TWICE DAILY FOR CONSTIPATION (DOCUSATE SODIUM 100 MG), # 60 capsule, 5 Refills, Maintenance, 11/23/23 20:00:00 EST, [facility], 162.56, cm, 10/03/23 9:00:00 EST, Height Start Date: 11/23/23 Status: Ordered EARWAX TREATMENT DROPS 6.5% EARWAX TREATMENT DROPS 6.5%, See Instructions, # 1 each, Refills 11, Tot. Refills 11, Maintenance, USE DIRECTED FAX [phone], 12/02/20 14:40:00 EST, [facility], 162.56, cm, 02/24/20 9:30:00 EDT, Height Start Date: 12/02/20 Status: Ordered fluoride 1.1% topical gel See Instructions, USE 1/4 INCH OF GEL TO BRUSH TEETH DAILY IN THE EVENING / BRUSH THOROUGHLY ALONG GUMLINE IC: DENTAGEL, # 56 Gm, 11 Refills, Maintenance, 09/21/23 16:44:00 EST, [facility], 30, USE 1/4 INCH OF GEL TO BRUSH TEETH DAILY IN THE EVEN... Start Date: 09/21/23 Status: Ordered Carolyn-jag 8.6 mg oral tablet 1 tablet, By Mouth, Daily in PM, FOR CONSTIPATION / SEE MILK OF MAG ORDERS / IC: SENNA 8.6 MG, # 15tablet, 6 Refills, Maintenance, 10/14/22 8:03:00 EST, [facility], 162.56, cm, 07/04/22 8:33:00EDT, Height Start Date: 10/14/22 Status: Ordered Hospital Bed See Instructions, # 1 each, Refills 0, Tot. Refills 0, Maintenance, [facility] DX: Left hip fracture, seizure dis, impulse control disorder, atypical autism. Duration ongoing NPI#[id number] Height: 5'6 Weight: 137lbs, 03/22/23 13:55:... Start Date: 03/22/23 Status: Ordered Milk of Magnesia 8% oral suspension See Instructions, TAKE 2 TABLESPOONFULS (30 ML) BY MOUTH AT BEDTIME NEEDED FOR CONSTIPATION ON DAY 3 OF NO BM / SEE BISCOLAX SUPP ORDER 30ML=2,400MG, # 300 mL, 5 Refills, Acute, [facility], 162.56, cm, 02/24/20 9:30:00 EDT, Height Start Date: 10/30/20 Status: Ordered MILLITRIUM TABLET See Instructions, 30, 11, 11, 06/20/08 13:07:29, TAKE 1 TABLET BY MOUTH DAILY (VITAMIN), [facility] [address] [place] [address], Constant Indicator, MILLITRIUM TABLET Start Date: 06/20/08 [...] tablet, 0 Refills, Maintenance, 10/03/23 8:50:00 EST, [facility], Partial fill upon patient request if the prescription... Start Date: 10/03/23 Status: Ordered Polysporin 500 u-15929 u/gm ointment See Instructions, APPLY A THIN LAYER TOPICALLY TWICE DAILY NEEDED TO RED, IRRITATED SKIN X 7 DAYS / SEE ANCILLARY ORDERS (BACITRACIN-POLYMYXIN OINTMENT), # 28.3 Gm, 5 Refills, Maintenance, 04/18/23 8:59:00 EDT, [facility], 7, APPLY A THIN LAYE... Start Date: 04/18/23 Status: Ordered pravastatin 40 mg oral tablet 1 tablet, By Mouth, Daily, IN PM FOR HYPERLIPIDEMIA., # 30 tablet, 5 Refills, Maintenance, 248:50:00 EST, [facility], 162.56, cm, 09/19/23 10:28:00 EST, Height Start Date: 10/02/23 Status: Ordered Profola oral tablet 1 tablet, By Mouth, Daily, # 30 tablet, 11 Refills, Maintenance, 05/19/23 10:41:00 EDT, [facility], Partial fill upon patient request if [...] tablet, 11 Refills, Maintenance, 10/26/23 8:49:00 EST, [facility], 162.56, cm, 10/03/23 9:00:00 EST, Height Start Date: 10/26/23 Status: Ordered SUDOGEST 30 MG TABLETS SUDOGEST 30 MG TABLETS, See Instructions, # 30 each, Refills 11, Tot. Refills 11, Maintenance, TAKE30 MG Q6H PRN PER DR CRANE FAX [phone], 02/01/19 9:46:36 EDT, Compound Start Date: 02/01/19 Status: Ordered Thera oral tablet 1 tablet, By Mouth, Daily in AM, VITAMIN., # 30 tablet, 5 Refills, Maintenance, 10/25/23 10:03:00 EST, [facility], 30, TAKE 1 TABLET BY MOUTH [...] mL, 1 Refills, Maintenance, 12/01/20 8:15:00 EST, [place], [facility], 1 sprays Topically 2 times a day, 162.56, cm, 02/24/20 9:30:00 EDT, Height Start Date: 12/01/20 Status: Ordered KAILYNIN KUSHAL FATIMA, See Instructions, # 420 mL, Refills 1, Tot. Refills 1, Maintenance, 10 ML PO Q4H PRN FORCOUGH AT BEDTIME PER DR CRANE FAX [phone], 05/22/20 8:48:00 EDT, [facility], 162.56, cm, 02/24/20 [...] Confirmed Active Vitamin D deficiency Confirmed Active 25641; repeat 2020 2colo 2006 nl, repeat 2015 3Colonoscopy 2016 positive polyp, repeat 2020. 4colo 2015 Social History Social History Type Response Smoking Status Never smoker entered on: 02/01/16 Sex Patient Care team information Care Team Personnel Name: Schuyler Crane MD Position: [facility] Physician - Primary Care Member Role: PCP Address: Address: [address] [place] [address]- Care Team Related Persons Name: ELLE ALMEIDA Address: home [address] [place] [id number] Name: ZAK SHELL
--- OUTSIDE RECORDS SUMMARY | 2024-04-02 09:41 | XMS_ITS | Continuity of Care Document ---
Author Organization [facility] Todd lt Address [address] [place] [address]- Care Team Providers Care Air Conditioning Manager Name Role Phone Schuyler Crane MD Primary Care Physician [facility]): 03[facility]21 - 04/04/21 [facility] Adult [address] [place] [address]- Allergies, Adverse Reactions, Alerts Substance Reaction Severity [...] 04/01/21 15:49:00 EDT, Route to Pharmacy Electronically, [facility], 162.56, cm, 02/25/21 9:29:00 EDT, Height Start Date: 04/01/21 Status: Ordered ANTACID 500 MG CHEWABLE TAB ANTACID 500 MG CHEWABLE TAB, See Instructions, # 90 each, Refills 3, Tot. Refills 3, Maintenance, TAKE 1 TABLET PO TID FOR OSTEOPOROSIS. MAY CRUSH TABLET PER DR CRANE FX [phone], 07/20/18 12:11:49EDT, Compound Start Date: 07/20/18 Status: Ordered Bisco-Lax 10 mg rectal suppository See Instructions, INSERT 1 SUPP (10MG) INTO RECTUM NEEDED IF MILK OF MAGNESIA INEFFECTIVE AFTER 8 HRS/BISAC- EVAC EQUIVALENT/ IF SUPPOSITORY INEFFECTIVE AF, # 7 supp, 11 Refills, Acute, [facility], 162.56, cm, 02/24/20 9:30:00 EDT, Height Start Date: 03/30/20 Status: Ordered Blood Pressure Monitor See Instructions, 1, 0, 0, 06/11/07 11:11:37, PRN, HTN, ADS OPPTHS, [facility] [address] [place] [address] Start Date: 06/11/07 Status: Ordered calcium carbonate 500 mg (200 mg elemental calcium) oral tablet, chewable 500 mg, 1, tablet, By Mouth, 3 times a day, PER DR CRANE, # 90 tablet, Refills 5, Tot. Refills 5, Maintenance, 04/02/21 14:35:00 EDT, Route to Pharmacy Electronically, [facility], 162.56, cm, 02/25/21 9:29:00 EDT, Height Start Date: 04/02/21 Stop Date: 09/29/21 Status: Ordered cetirizine 10 mg oral tablet See Instructions, TAKE 1 TABLET (10 MG) BY MOUTH DAILY IN THE AM FOR SEASONAL ALLERGIES FROM DECEMBER THROUGH JUNE (START 12/24) SEE ANCILLARY ORDERS, # 30 tablet, 5 Refills, Maintenance, [facility], 162.56, cm, 02/25/21 9:29:00 EDT, He... Start Date: 02/25/21 Status: Ordered cetirizine 10 mg oral tablet 1 tablet, By Mouth, Daily in AM, FOR SEASONAL ALLERGIES FROM DECEMBER THROUGH JUNE (START 12/24) SEE ANCILLARY ORDERS., # 30 tablet, 5 Refills, Maintenance, 02/25/21 13:04:00 EDT, [facility], 162.56, cm, 02/25/21 9:29:00 EDT, Height [...] Gm, 11 Refills, Maintenance, 08/07/20 11:11:00 EST, [facility], 30, USE 1/4 INCH OF GEL TO BRUSH TEETH DAILY IN THE EVENING / BRUSH T... Start Date: 08/07/20 Status: Ordered docusate sodium 100 mg oral capsule 1 capsule, By Mouth, 2 times a day, # 60 capsule, 5 Refills, Maintenance, 01/28/21 15:23:00 EDT, [facility], 162.56, cm, 02/24/20 9:30:00 EDT, Height Start Date: 01/28/21 Status: Ordered EARWAX TREATMENT DROPS 6.5% EARWAX TREATMENT DROPS 6.5%, See Instructions, # 1 each, Refills 11, Tot. Refills 11, Maintenance, USE DIRECTED FAX [phone], 12/02/20 14:40:00 EST, [facility], 162.56, cm, 02/24/20 9:30:00 EDT, Height Start Date: 12/02/20 Status: Ordered Milk of Magnesia 8% oral suspension See Instructions, TAKE 2 TABLESPOONFULS (30 ML) BY MOUTH AT BEDTIME NEEDED FOR CONSTIPATION ON DAY 3 OF NO BM / SEE BISCOLAX SUPP ORDER 30ML=2,400MG, # 300 mL, 5 Refills, Acute, [facility], 162.56, cm, 02/24/20 9:30:00 EDT, Height Start Date: 10/30/20 Status: Ordered MILLITRIUM TABLET See Instructions, 30, 11, 11, 06/20/08 13:07:29, TAKE 1 TABLET BY MOUTH DAILY (VITAMIN), [address] [address], Constant Indicator, MILLITRIUM TABLET Start Date: 06/20/08 [...] bid prn nasal dryness PER DAWIT STOREY SENIOR ELECTRICAL DESIGN ENGINEER-C FAX [phone], 11/02/18 14:15:30 EST, Compound Start Date: 11/02/18 Status: Ordered Ocuflox 0.3% solution 2 drops, Eyes, Both, 4 times a day, # 10 mL, 0 Refills, Maintenance, 01/10/17 14:21:09, Ophth Solution, 2 drops Eyes, Both 4 times a day Start Date: 01/10/17 Status: Ordered Polysporin 500 u-28449 u/gm ointment See Instructions, APPLY A THIN LAYER TOPICALLY TWICE DAILY NEEDED TO RED, IRRITATED SKIN X 7 DAYS / SEE ANCILLARY ORDERS (BACITRACIN-POLYMYXIN OINTMENT), # 28.3 Gm, 5 Refills, Acute, [facility], 7, APPLY A THIN LAYER TOPICALLY TWICE DAILY N... Start Date: 03/30/20 Status: Ordered Polysporin 500 u-16632 u/gm ointment See Instructions, APPLY A THIN LAYER TOPICALLY TWICE DAILY NEEDED TO RED, IRRITATED SKIN X 7 DAYS / SEE ANCILLARY ORDERS (BACITRACIN-POLYMYXIN OINTMENT), # 28.3 Gm, 5 Refills, Acute, [facility], 7, APPLY A THIN LAYER TOPICALLY TWICE DAILY N... Start Date: 03/30/20 Status: Ordered pravastatin 40 mg oral tablet 1 tablet, By Mouth, Daily, IN PM FOR HYPERLIPIDEMIA., # 30 tablet, 5 Refills, Maintenance, 03/05/2111:55:00 EDT, [facility], 162.56, cm, 02/25/21 9:29:00 EDT, Height [...] MG Q6H PRN PER DR CRANE FAX [phone], 02/01/19 9:46:36 EDT, Compound Start Date: 02/01/19 Status: Ordered Suphedrin 30 mg oral tablet See Instructions, TAKE 1 TAB (30 MG) BY MOUTH EVERY 6 HRS NEEDED FOR NASAL CONGESTION/ SEE ANCILLARY ORDERS (SUDOGEST EQUIVALENT), # 30 tablet, 11 Refills, Acute, [facility], 162.56, cm, 02/24/20 9:30:00 EDT, Height Start Date: 05/22/20 Status: Ordered THERA CAPLETS THERA CAPLETS, See Instructions, # 30 each, Refills 5, Tot. Refills 5, Maintenance, TAKE ONE CAPLETBY MOUTH QD PER DR CRANE FAX [phone], 10/08/20 11:48:00 EST, [facility], 162.56, cm, 02/24/20 [...] mL, 1 Refills, Maintenance, 12/01/20 8:15:00 EST, [place], [facility], 1 sprays Topically 2 times a day, 162.56, cm, 02/24/20 9:30:00 EDT, Height Start Date: 12/01/20 Status: Ordered TUSSIN DM TUSSIN DM, See Instructions, # 420 mL, Refills 1, Tot. Refills 1, Maintenance, 10 ML PO Q4H PRN FORCOUGH AT BEDTIME PER DR CRANE FAX [phone], 05/22/20 8:48:00 EDT, [facility], 162.56, cm, 02/24/20 9:30:00 EDT, Height Start Date: 05/22/20 Status: Ordered Tylenol 325 mg oral tablet 650 mg, 2, tablet, By Mouth, Every 4 hours, PER DR CRANE, # 168 tablet, Refills 5, Tot. Refills 5, Maintenance, 10/04/19 10:27:00 EST, Route to Pharmacy Electronically, [facility], 162.56, cm, 02/12/19 10:36:00 EDT, Height [...] Active Underweight(Confirmed) Active Vitamin D deficiency(Confirmed) Active 74040; repeat 2020 2colo 2006 nl, repeat 2015 3Colonoscopy 2016 positive polyp, repeat 2020. 4colo 2015 Social History Social History Type Response Smoking Status Never smoker entered on: 02/01/16 Sex
--- OUTSIDE RECORDS SUMMARY | 2024-04-02 09:41 | XMS_ITS | Continuity of Care Document ---
Author Organization [facility] Salvatore Todd lt Address [address] [place] [address]- Care Team Providers Care Mortgage Broker Name Role Phone Schuyler Crane MD Primary Care Physician [phone] [facility] 02[facility]07[facility]24 - 03/08/24 [facility] [address] [place] [address]- Allergies, Adverse Reactions, Alerts Substance Reaction Severity [...] 08/25/04 Vishal muniz 1Result Comment: Td - [facility]# [id number] 2Result Comment: PCV23 - [facility]# [id number] 3Result Comment: [facility]# [id number] 4Result Comment: [10/28/2016] pharmacy 5Admin Note: given [...] 10/14/22 8:03:00 EST, Route to Pharmacy Electronically, [facility], 162.56, cm, 07/04/22 8:33:00 EDT, Height Start Date: 10/14/22 Status: Ordered acetaminophen 325 mg oral tablet 2, tablet, By Mouth, 2 times a day, PRN, # 20 tablet, Refills 0, Tot. Refills 0, Maintenance, NEEDED, 12/12/23 11:09:00 EDT, Route to Pharmacy Electronically, [facility], 162.56, cm, 12/11/2409:47:00 EDT, Height Start Date: 12/12/23 Stop Date: 12/17/23 Status: Ordered All Day Allergy 10 mg oral tablet 1 tablet, By Mouth, Daily in AM, FOR SEASONAL ALLERGIES FROM DECEMBER THROUGH JUNE (START 12/24 / ) SEE ANCILLARY ORDERS., # 30 tablet, 11 Refills, Maintenance, 12/21/23 7:45:00 EDT, [facility], 162.56, cm, 12/12/23 10:47:00 EDT, Height Start Date: 12/21/23 Status: Ordered amLODIPine 10 mg oral tablet 1 tablet, By Mouth, Daily in AM, FOR HYPERTENSION., # 30 tablet, 5 Refills, Maintenance, 10/25/23 0:22:00 EST, [facility], 162.56, cm, 10/03/23 9:00:00 EST, Height Start Date: 10/25/23 Status: Ordered ANTACID 500 MG CHEWABLE TAB ANTACID 500 MG CHEWABLE TAB, See Instructions, # 90 each, Refills 3, Tot. Refills 3, Maintenance, TAKE 1 TABLET PO TID FOR OSTEOPOROSIS. MAY CRUSH TABLET PER DR ROSA MARIA CRUZ [phone], 07/20/18 12:11:49EDT, Compound Start Date: 07/20/18 Status: Ordered benzonatate 100 mg oral capsule 1 capsule, By Mouth, 3 times a day, PRN NEEDED FOR COUGH / IF NO IMPROVEMENT IN 3 DAYS NOTIFY MD/ IC, JAGRUTI, # 21 capsule, 0 Refills, Maintenance, 10/05/23 12:01:00 EST, [facility], 162.56, cm, 10/03/23 9:00:00 EST, Height Start Date: 10/05/23 Status: Ordered bisacodyl 10 mg rectal suppository See Instructions, INSERT 1 SUPP (10MG) INTO RECTUM NEEDED IF MILK OF MAGNESIA INEFFECTIVE AFTER 8 HRS/BISAC- EVAC EQUIVALENT/ IF SUPPOSITORY INEFFECTIVE AFTER 4 HRS CALL MD, # 7 supp, 11 Refills, Acute, [facility], 162.56, cm, 02/25/21 9:29:00... Start Date: 04/15/21 Status: Ordered Blood Pressure Monitor See Instructions, 1, 0, 0, 06/11/07 11:11:37, PRN, HTN, ADS OPPTHS, [facility] [address] [place] [address] Start Date: 06/11/07 Status: Ordered calcium carbonate 500 mg (200 mg elemental calcium) oral tablet, chewable 1, tablet, By Mouth, 3 times a day, CRUSH. IC: CALCIUM CARBONATE, # 90 tablet, Refills 5, Maintenance, 10/02/23 8:50:00 EST, Route to Pharmacy Electronically, [facility], 162.56, cm, 09/19/23 10:28:00 EST, Height Start Date: 10/02/23 Status: Ordered carbamide peroxide 6.5% otic solution See Instructions, INSTILL 4 DROPS INTO EACH EAR TWICE DAILY FOR 5 DAYS EACH MONTH / IC: CARBAMIDE PEROXIDE (EAR DROPS 6.5%), # 15 mL, 11 Refills, Maintenance, 09/01/23 9:17:00 EST, [facility], 30, INSTILL 4 DROPS INTO EACH [...] capsule, 5 Refills, Maintenance, 11/23/23 20:00:00 EST, [facility], 162.56, cm, 10/03/23 9:00:00 EST, Height Start Date: 11/23/23 Status: Ordered EARWAX TREATMENT DROPS 6.5% EARWAX TREATMENT DROPS 6.5%, See Instructions, # 1 each, Refills 11, Tot. Refills 11, Maintenance, USE DIRECTED FAX [phone], 12/02/20 14:40:00 EST, [facility], 162.56, cm, 02/24/20 9:30:00 EDT, Height Start Date: 12/02/20 Status: Ordered fluoride 1.1% topical gel See Instructions, USE 1/4 INCH OF GEL TO BRUSH TEETH DAILY IN THE EVENING / BRUSH THOROUGHLY ALONG GUMLINE IC: DENTAGEL, # 56 Gm, 11 Refills, Maintenance, 09/21/23 16:44:00 EST, [facility], 30, USE 1/4 INCH OF GEL TO BRUSH TEETH DAILY IN THE EVEN... Start Date: 09/21/23 Status: Ordered Carolyn-jag 8.6 mg oral tablet 1 tablet, By Mouth, Daily in PM, FOR CONSTIPATION / SEE MILK OF MAG ORDERS / IC: SENNA 8.6 MG, # 15tablet, 6 Refills, Maintenance, 10/14/22 8:03:00 EST, [facility], 162.56, cm, 07/04/22 8:33:00EDT, Height Start Date: 10/14/22 Status: Ordered Hospital Bed See Instructions, # 1 each, Refills 0, Tot. Refills 0, Maintenance, [facility] DX: Left hip fracture, seizure dis, impulse control disorder, atypical autism. Duration ongoing NPI#[id number] Height: 5'6 Weight: 137lbs, 03/22/23 13:55:... Start Date: 03/22/23 Status: Ordered ibuprofen 600 mg oral tablet 600 mg, 1, tablet, By Mouth, Every 8 hours, PRN for pain, # 30 tablet, Refills 0, Tot. Refills 0, Maintenance, 02/08/24 12:44:00 EDT, Route to Pharmacy Electronically, [facility], Partial fill upon patient request if the prescription is for a adeline... Start Date: 02/08/24 Status: Ordered Milk of Magnesia 8% oral suspension See Instructions, TAKE 2 TABLESPOONFULS (30 ML) BY MOUTH AT BEDTIME NEEDED FOR CONSTIPATION ON DAY 3 OF NO BM / SEE BISCOLAX SUPP ORDER 30ML=2,400MG, # 300 mL, 5 Refills, Acute, [facility], 162.56, cm, 02/24/20 9:30:00 EDT, Height Start Date: 10/30/20 Status: Ordered MILLITRIUM TABLET See Instructions, 30, 11, 11, 06/20/08 13:07:29, TAKE 1 TABLET BY MOUTH DAILY (VITAMIN), [facility] [address] [place] [address], Constant Indicator, MILLITRIUM TABLET Start Date: 06/20/08 [...] tablet, 0 Refills, Maintenance, 10/03/23 8:50:00 EST, [facility], Partial fill upon patient request if the prescription... Start Date: 10/03/23 Status: Ordered Polysporin 500 u-88583 u/gm ointment See Instructions, APPLY A THIN LAYER TOPICALLY TWICE DAILY NEEDED TO RED, IRRITATED SKIN X 7 DAYS / SEE ANCILLARY ORDERS (BACITRACIN-POLYMYXIN OINTMENT), # 28.3 Gm, 5 Refills, Maintenance, 04/18/23 8:59:00 EDT, [facility], 7, APPLY A THIN LAYE... Start Date: 04/18/23 Status: Ordered pravastatin 40 mg oral tablet 1 tablet, By Mouth, Daily, IN PM FOR HYPERLIPIDEMIA., # 30 tablet, 5 Refills, Maintenance, 248:50:00 EST, [facility], 162.56, cm, 09/19/23 10:28:00 EST, Height Start Date: 10/02/23 Status: Ordered Profola oral tablet 1 tablet, By Mouth, Daily, # 30 tablet, 11 Refills, Maintenance, 05/19/23 10:41:00 EDT, [facility], Partial fill upon patient request if [...] tablet, 11 Refills, Maintenance, 10/26/23 8:49:00 EST, [facility], 162.56, cm, 10/03/23 9:00:00 EST, Height Start Date: 10/26/23 Status: Ordered SUDOGEST 30 MG TABLETS SUDOGEST 30 MG TABLETS, See Instructions, # 30 each, Refills 11, Tot. Refills 11, Maintenance, TAKE30 MG Q6H PRN PER DR CRANE FAX [phone], 02/01/19 9:46:36 EDT, Compound Start Date: 02/01/19 Status: Ordered Thera oral tablet 1 tablet, By Mouth, Daily in AM, VITAMIN., # 30 tablet, 5 Refills, Maintenance, 10/25/23 10:03:00 EST, [facility], 30, TAKE 1 TABLET BY MOUTH [...] mL, 1 Refills, Maintenance, 12/01/20 8:15:00 EST, [place], [facility], 1 sprays Topically 2 times a day, 162.56, cm, 02/24/20 9:30:00 EDT, Height Start Date: 12/01/20 Status: Ordered KAILYNIN KUSHAL FATIMA, See Instructions, # 420 mL, Refills 1, Tot. Refills 1, Maintenance, 10 ML PO Q4H PRN FORCOUGH AT BEDTIME PER DR CRANE FAX [phone], 05/22/20 8:48:00 EDT, [facility], 162.56, cm, 02/24/20 [...] Confirmed Active Vitamin D deficiency Confirmed Active 63308; repeat 2020 2colo 2005 nl, repeat 2015 3Colonoscopy 2016 positive polyp, repeat 2020. 4colo 2015 Social History Social History Type Response Smoking Status Never smoker entered on: 02/01/16 Sex Patient Care team information Care Team Personnel Name: Rosa Maria HUSTON, Schuyler Pope Position: [facility] Physician - Primary Care Member Role: PCP Address: Address: [address] [place] [address]- Care Team Related Persons Name: ELLE ALMEIDA Address: home [address] [place] [id number] Name: ZAK SHELL
--- OUTSIDE RECORDS SUMMARY | 2024-04-02 09:41 | XMS_ITS | Continuity of Care Document ---
[facility] Todd lt Address [address] [place] [address]- Care Team Providers Care Cokeman Name Role Phone Schuyler Crane MD Primary Care Physician [phone] [facility] 06[facility]20 [facility] [address] [place] [address]- [facility] Allergies, Adverse Reactions, Alerts Substance Reaction Severity [...] 5 Refills, Soft Stop, 04/03/20 16:18:00 EDT, [facility], 162.56, cm, 02/24/20 9:30:00 EDT, Height Start Date: 04/03/20 Status: Ordered amLODIPine 10 mg oral tablet 10 mg, 1, tablet, By Mouth, Daily, # 90 tablet, Refills 1, Tot. Refills 1, Soft Stop, 04/09/20 13:02:00 EDT, Route to Pharmacy Electronically, [facility], 162.56, cm, 02/24/20 9:30:00 EDT, Height Start Date: 04/09/20 Status: Ordered ANTACID 500 MG CHEWABLE TAB ANTACID 500 MG CHEWABLE TAB, See Instructions, # 90 each, Refills 3, Tot. Refills 3, Maintenance, TAKE 1 TABLET PO TID FOR OSTEOPOROSIS. MAY CRUSH TABLET PER DR CRANE FX [phone], 07/20/18 12:11:49EDT, Compound Start Date: 07/20/18 Status: Ordered Bisco-Lax 10 mg rectal suppository See Instructions, INSERT 1 SUPP (10MG) INTO RECTUM NEEDED IF MILK OF MAGNESIA INEFFECTIVE AFTER 8 HRS/BISAC- EVAC EQUIVALENT/ IF SUPPOSITORY INEFFECTIVE AF, # 7 supp, 11 Refills, Acute, [facility], 162.56, cm, 02/24/20 9:30:00 EDT, Height Start Date: 03/30/20 Status: Ordered Blood Pressure Monitor See Instructions, 1, 0, 0, 06/11/07 11:11:37, PRN, HTN, ADS OPPTHS, [facility] [id number] [place] [address] Start Date: 06/11/07 Status: Ordered calcium carbonate 500 mg (200 mg elemental calcium) oral tablet, chewable 500 mg, 1, tablet, By Mouth, 3 times a day, PER DR CRANE, # 90 tablet, Refills 11, Tot. Refills 11, Maintenance, 12/09/19 14:35:00 EDT, Route to Pharmacy Electronically, [facility], 162.56, cm, 02/12/19 10:36:00 EDT, Height [...] 02/06/20 12:14:00 EDT, Route to Pharmacy Electronically, [facility], 162.56, cm, 02/12/19 10:36:00 EDT, Height [...] Tot. Refills 11, Maintenance, USE DIRECTED FAX [phone], 10/01/19 11:14:00 EST, [facility];, Compound Start Date: [...] TAKE 1 TABLET BY MOUTH DAILY (VITAMIN), [facility] [address] [place] [address], Constant Indicator, MILLITRIUM TABLET Start Date: 06/20/08 [...] bid prn nasal dryness PER DAWIT STOREY TIMBER ROBBER-C FAX [phone], 11/02/18 14:15:30 EST, Compound Start Date: 11/02/18 Status: Ordered Ocuflox 0.3% solution 2 drops, Eyes, Both, 4 times a day, # 10 mL, 0 Refills, Maintenance, 01/10/17 14:21:09, Ophth Solution, 2 drops Eyes, Both 4 times a day Start Date: 01/10/17 Status: Ordered Polysporin 500 u-05847 u/gm ointment See Instructions, APPLY A THIN LAYER TOPICALLY TWICE DAILY NEEDED TO RED, IRRITATED SKIN X 7 DAYS / SEE ANCILLARY ORDERS (BACITRACIN-POLYMYXIN OINTMENT), # 28.3 Gm, 5 Refills, Acute, [facility], 7, APPLY A THIN LAYER TOPICALLY TWICE DAILY N... Start Date: 03/30/20 Status: Ordered Polysporin 500 u-54213 u/gm ointment See Instructions, APPLY A THIN [...] MG Q6H PRN PER DR CRANE FAX [phone], 02/01/19 9:46:36 EDT, Compound Start Date: 02/01/19 Status: Ordered Suphedrin 30 mg oral tablet See Instructions, TAKE 1 TAB (30 MG) BY MOUTH EVERY 6 HRS NEEDED FOR NASAL CONGESTION/ SEE ANCILLARY ORDERS (SUDOGEST EQUIVALENT), # 30 tablet, 11 Refills, Acute, [facility], 162.56, cm, 02/24/20 9:30:00 EDT, Height Start Date: 05/22/20 Status: Ordered THERA CAPLETS THERA CAPLETS, See Instructions, # 30 each, Refills 5, Tot. Refills 5, Maintenance, TAKE ONE CAPLETBY MOUTH QD PER DR CRANE FAX [phone], 03/12/20 12:59:00 EDT, [facility], 162.56, cm, 02/24/20 9:30:00 EDT, Height Start Date: 03/12/20 Status: Ordered Tinactin 1% spray 1 sprays, Topically, 2 times a day, # 120 mL, 1 Refills, Maintenance, 11/01/19 10:28:00 EST, [place], 1 sprays Topically 2 times a day, 162.56, cm, 02/12/19 10:36:00 EDT, Height Start Date: 11/01/19 Status: Ordered CHAKASSIN KUSHAL FATIMA, See Instructions, # 420 mL, Refills 1, Tot. Refills 1, Maintenance, 10 ML PO Q4H PRN FORCOUGH AT BEDTIME PER DR CRANE FAX [phone], 05/22/20 8:48:00 EDT, Compound, 162.56, cm, 02/24/20 9:30:00 EDT, Height Start Date: 05/22/20 Status: Ordered Tylenol 325 mg oral tablet 650 mg, 2, tablet, By Mouth, Every 4 hours, PER DR CRANE, # 168 tablet, Refills 5, Tot. Refills 5, Maintenance, 10/04/19 10:27:00 EST, Route to Pharmacy Electronically, [facility], 162.56, cm, 02/12/19 10:36:00 EDT, Height [...] Active Underweight(Confirmed) Active Vitamin D deficiency(Confirmed) Active 77189; repeat 2020 2colo 2006 nl, repeat 2015 3Colonoscopy 2016 positive polyp, repeat 2020. 4colo 2015 Social History Social History Type Response Smoking Status Never smoker entered on: 02/01/16 Sex
--- OUTSIDE RECORDS SUMMARY | 2024-04-02 09:41 | XMS_ITS | Continuity of Care Document ---
Author Organization [facility] Todd lt Address [address] [place] [address]- Care Team Providers Care Geotechnical Laboratory Technician Name Role Phone Schuyler Crane MD Primary Care Physician [phone] [facility]): 03[facility]04[facility]21 - 04/03/21 [facility] [address] [place] [address]- Allergies, Adverse Reactions, Alerts Substance Reaction Severity [...] 04/01/21 15:49:00 EDT, Route to Pharmacy Electronically, [facility], 162.56, cm, 02/25/21 9:29:00 EDT, Height Start Date: 04/01/21 Status: Ordered ANTACID 500 MG CHEWABLE TAB ANTACID 500 MG CHEWABLE TAB, See Instructions, # 90 each, Refills 3, Tot. Refills 3, Maintenance, TAKE 1 TABLET PO TID FOR OSTEOPOROSIS. MAY CRUSH TABLET PER DR CRANE FX [phone], 07/20/18 12:11:49EDT, Compound Start Date: 07/20/18 Status: Ordered Bisco-Lax 10 mg rectal suppository See Instructions, INSERT 1 SUPP (10MG) INTO RECTUM NEEDED IF MILK OF MAGNESIA INEFFECTIVE AFTER 8 HRS/BISAC- EVAC EQUIVALENT/ IF SUPPOSITORY INEFFECTIVE AF, # 7 supp, 11 Refills, Acute, [facility], 162.56, cm, 02/24/20 9:30:00 EDT, Height Start Date: 03/30/20 Status: Ordered Blood Pressure Monitor See Instructions, 1, 0, 0, 06/11/07 11:11:37, PRN, HTN, ADS OPPTHS, [facility] [id number] [place] [address] Start Date: 06/11/07 Status: Ordered calcium carbonate 500 mg (200 mg elemental calcium) oral tablet, chewable 500 mg, 1, tablet, By Mouth, 3 times a day, PER DR CRANE, # 90 tablet, Refills 5, Tot. Refills 5, Maintenance, 04/02/21 14:35:00 EDT, Route to Pharmacy Electronically, [facility], 162.56, cm, 02/25/21 9:29:00 EDT, Height Start Date: 04/02/21 Stop Date: 09/29/21 Status: Ordered cetirizine 10 mg oral tablet See Instructions, TAKE 1 TABLET (10 MG) BY MOUTH DAILY IN THE AM FOR SEASONAL ALLERGIES FROM DECEMBER THROUGH JUNE (START 12/24) SEE ANCILLARY ORDERS, # 30 tablet, 5 Refills, Maintenance, [facility], 162.56, cm, 02/25/21 9:29:00 EDT, He... Start Date: 02/25/21 Status: Ordered cetirizine 10 mg oral tablet 1 tablet, By Mouth, Daily in AM, FOR SEASONAL ALLERGIES FROM DECEMBER THROUGH JUNE (START 12/24) SEE ANCILLARY ORDERS., # 30 tablet, 5 Refills, Maintenance, 02/25/21 13:04:00 EDT, [facility], 162.56, cm, 02/25/21 9:29:00 EDT, Height [...] Gm, 11 Refills, Maintenance, 08/07/20 11:11:00 EST, [facility], 30, USE 1/4 INCH OF GEL TO BRUSH TEETH DAILY IN THE EVENING / BRUSH T... Start Date: 08/07/20 Status: Ordered docusate sodium 100 mg oral capsule 1 capsule, By Mouth, 2 times a day, # 60 capsule, 5 Refills, Maintenance, 01/28/21 15:23:00 EDT, [facility], 162.56, cm, 02/24/20 9:30:00 EDT, Height Start Date: 01/28/21 Status: Ordered EARWAX TREATMENT DROPS 6.5% EARWAX TREATMENT DROPS 6.5%, See Instructions, # 1 each, Refills 11, Tot. Refills 11, Maintenance, USE DIRECTED FAX [phone], 12/02/20 14:40:00 EST, [facility];, [facility], 162.56, cm, 02/24/20 9:30:00 EDT, Height Start Date: 12/02/20 Status: Ordered Milk of Magnesia 8% oral suspension See Instructions, TAKE 2 TABLESPOONFULS (30 ML) BY MOUTH AT BEDTIME NEEDED FOR CONSTIPATION ON DAY 3 OF NO BM / SEE BISCOLAX SUPP ORDER 30ML=2,400MG, # 300 mL, 5 Refills, Acute, [facility], 162.56, cm, 02/24/20 9:30:00 EDT, Height Start Date: 10/30/20 Status: Ordered MILLITRIUM TABLET See Instructions, 30, 11, 11, 06/20/08 13:07:29, TAKE 1 TABLET BY MOUTH DAILY (VITAMIN), [address] [address], Constant Indicator, MILLITRIUM TABLET Start Date: 06/20/08 [...] bid prn nasal dryness PER DAWIT STOREY NET DEVELOPER WITH [employer] FAX [phone], 11/02/18 14:15:30 EST, Compound Start Date: 11/02/18 Status: Ordered Ocuflox 0.3% solution 2 drops, Eyes, Both, 4 times a day, # 10 mL, 0 Refills, Maintenance, 01/10/17 14:21:09, Ophth Solution, 2 drops Eyes, Both 4 times a day Start Date: 01/10/17 Status: Ordered Polysporin 500 u-38956 u/gm ointment See Instructions, APPLY A THIN LAYER TOPICALLY TWICE DAILY NEEDED TO RED, IRRITATED SKIN X 7 DAYS / SEE ANCILLARY ORDERS (BACITRACIN-POLYMYXIN OINTMENT), # 28.3 Gm, 5 Refills, Acute, [facility], 7, APPLY A THIN LAYER TOPICALLY TWICE DAILY N... Start Date: 03/30/20 Status: Ordered Polysporin 500 u-55333 u/gm ointment See Instructions, APPLY A THIN LAYER TOPICALLY TWICE DAILY NEEDED TO RED, IRRITATED SKIN X 7 DAYS / SEE ANCILLARY ORDERS (BACITRACIN-POLYMYXIN OINTMENT), # 28.3 Gm, 5 Refills, Acute, [facility], 7, APPLY A THIN LAYER TOPICALLY TWICE DAILY N... Start Date: 03/30/20 Status: Ordered pravastatin 40 mg oral tablet 1 tablet, By Mouth, Daily, IN PM FOR HYPERLIPIDEMIA., # 30 tablet, 5 Refills, Maintenance, 03/05/2111:55:00 EDT, [facility], 162.56, cm, 02/25/21 9:29:00 EDT, Height [...] MG Q6H PRN PER DR CRANE FAX [phone], 02/01/19 9:46:36 EDT, Compound Start Date: 02/01/19 Status: Ordered Suphedrin 30 mg oral tablet See Instructions, TAKE 1 TAB (30 MG) BY MOUTH EVERY 6 HRS NEEDED FOR NASAL CONGESTION/ SEE ANCILLARY ORDERS (SUDOGEST EQUIVALENT), # 30 tablet, 11 Refills, Acute, [facility], 162.56, cm, 02/24/20 9:30:00 EDT, Height Start Date: 05/22/20 Status: Ordered THERA CAPLETS THERA CAPLETS, See Instructions, # 30 each, Refills 5, Tot. Refills 5, Maintenance, TAKE ONE CAPLETBY MOUTH QD PER DR CRANE FAX [phone], 10/08/20 11:48:00 EST, [facility], 162.56, cm, 02/24/20 [...] mL, 1 Refills, Maintenance, 12/01/20 8:15:00 EST, [place], [facility], 1 sprays Topically 2 times a day, 162.56, cm, 02/24/20 9:30:00 EDT, Height Start Date: 12/01/20 Status: Ordered TUSSIN DM TUSSIN DM, See Instructions, # 420 mL, Refills 1, Tot. Refills 1, Maintenance, 10 ML PO Q4H PRN FORCOUGH AT BEDTIME PER DR CRANE FAX [phone], 05/22/20 8:48:00 EDT, [facility], 162.56, cm, 02/24/20 9:30:00 EDT, Height Start Date: 05/22/20 Status: Ordered Tylenol 325 mg oral tablet 650 mg, 2, tablet, By Mouth, Every 4 hours, PER DR CRANE, # 168 tablet, Refills 5, Tot. Refills 5, Maintenance, 10/04/19 10:27:00 EST, Route to Pharmacy Electronically, [facility], 162.56, cm, 02/12/19 10:36:00 EDT, Height [...] Active Underweight(Confirmed) Active Vitamin D deficiency(Confirmed) Active 53219; repeat 2020 2colo 2006 nl, repeat 2015 3Colonoscopy 2016 positive polyp, repeat 2020. 4colo 2015 Social History Social History Type Response Smoking Status Never smoker entered on: 02/01/16 Sex
--- OUTSIDE RECORDS SUMMARY | 2024-04-02 09:41 | XMS_ITS | Continuity of Care Document ---
Author Organization [facility] Todd lt Address [address] [place] [address]- Care Team Providers Care Guest Experience Manager Name Role Phone Schuyler Crane MD Primary Care Physician [facility] - 03/31/21 [facility] [address] [place] [address]- Allergies, Adverse Reactions, Alerts Substance Reaction Severity [...] 10/08/20 8:13:00 EST, Route to Pharmacy Electronically, [facility], 162.56, cm, 02/24/20 9:30:00 EDT, Height Start Date: 10/08/20 Status: Ordered ANTACID 500 MG CHEWABLE TAB ANTACID 500 MG CHEWABLE TAB, See Instructions, # 90 each, Refills 3, Tot. Refills 3, Maintenance, TAKE 1 TABLET PO TID FOR OSTEOPOROSIS. MAY CRUSH TABLET PER DR CRANE FX [phone], 07/20/18 12:11:49EDT, Compound Start Date: 07/20/18 Status: Ordered Bisco-Lax 10 mg rectal suppository See Instructions, INSERT 1 SUPP (10MG) INTO RECTUM NEEDED IF MILK OF MAGNESIA INEFFECTIVE AFTER 8 HRS/BISAC- EVAC EQUIVALENT/ IF SUPPOSITORY INEFFECTIVE AF, # 7 supp, 11 Refills, Acute, [facility], 162.56, cm, 02/24/20 9:30:00 EDT, Height Start Date: 03/30/20 Status: Ordered Blood Pressure Monitor See Instructions, 1, 0, 0, 06/11/07 11:11:37, PRN, HTN, ADS OPPTHS, [facility] [id number] [place] [address] Start Date: 06/11/07 Status: Ordered calcium carbonate 500 mg (200 mg elemental calcium) oral tablet, chewable 500 mg, 1, tablet, By Mouth, 3 times a day, for 30 days, PER DR CRANE, # 90 tablet, Refills 3, Tot. Refills 3, Hard Stop 04/02/21 14:35:00 EDT, 12/03/20 14:35:00 EST, Route to Pharmacy Electronically, [facility], 162.56, cm, 02/24/20 9:30:00 EDT, H... Start Date: 12/03/20 Stop Date: 04/02/21 Status: Ordered calcium carbonate 500 mg (200 mg elemental calcium) oral tablet, chewable 500 mg, 1, tablet, By Mouth, 3 times a day, PER DR CRANE, # 90 tablet, Refills 5, Tot. Refills 5, Maintenance, 04/02/21 14:35:00 EDT, Route to Pharmacy Electronically, [facility], 162.56, cm, 02/25/21 9:29:00 EDT, Height Start Date: 04/02/21 Stop Date: 09/29/21 Status: Ordered cetirizine 10 mg oral tablet See Instructions, TAKE 1 TABLET (10 MG) BY MOUTH DAILY IN THE AM FOR SEASONAL ALLERGIES FROM DECEMBER THROUGH JUNE (START 12/24) SEE ANCILLARY ORDERS, # 30 tablet, 5 Refills, Maintenance, [facility], 162.56, cm, 02/25/21 9:29:00 EDT, He... Start Date: 02/25/21 Status: Ordered cetirizine 10 mg oral tablet 1 tablet, By Mouth, Daily in AM, FOR SEASONAL ALLERGIES FROM DECEMBER THROUGH JUNE (START 12/24) SEE ANCILLARY ORDERS., # 30 tablet, 5 Refills, Maintenance, 02/25/21 13:04:00 EDT, [facility], 162.56, cm, 02/25/21 9:29:00 EDT, Height [...] Gm, 11 Refills, Maintenance, 08/07/20 11:11:00 EST, [facility], 30, USE 1/4 INCH OF GEL TO BRUSH TEETH DAILY IN THE EVENING / BRUSH T... Start Date: 08/07/20 Status: Ordered docusate sodium 100 mg oral capsule 1 capsule, By Mouth, 2 times a day, # 60 capsule, 5 Refills, Maintenance, 01/28/21 15:23:00 EDT, [facility], 162.56, cm, 02/24/20 9:30:00 EDT, Height Start Date: 01/28/21 Status: Ordered EARWAX TREATMENT DROPS 6.5% EARWAX TREATMENT DROPS 6.5%, See Instructions, # 1 each, Refills 11, Tot. Refills 11, Maintenance, USE DIRECTED FAX [phone], 12/02/20 14:40:00 EST, [facility], 162.56, cm, 02/24/20 9:30:00 EDT, Height Start Date: 12/02/20 Status: Ordered Milk of Magnesia 8% oral suspension See Instructions, TAKE 2 TABLESPOONFULS (30 ML) BY MOUTH AT BEDTIME NEEDED FOR CONSTIPATION ON DAY 3 OF NO BM / SEE BISCOLAX SUPP ORDER 30ML=2,400MG, # 300 mL, 5 Refills, Acute, [facility], 162.56, cm, 02/24/20 9:30:00 EDT, Height Start Date: 10/30/20 Status: Ordered MILLITRIUM TABLET See Instructions, 30, 11, 11, 06/20/08 13:07:29, TAKE 1 TABLET BY MOUTH DAILY (VITAMIN), [facility] [address] [place] [address], Constant Indicator, MILLITRIUM TABLET Start Date: 06/20/08 [...] bid prn nasal dryness PER DAWIT STOREY CUPOLA [employer]ER HELPER-C FAX [phone], 11/02/18 14:15:30 EST, Compound Start Date: 11/02/18 Status: Ordered Ocuflox 0.3% solution 2 drops, Eyes, Both, 4 times a day, # 10 mL, 0 Refills, Maintenance, 01/10/17 14:21:09, Ophth Solution, 2 drops Eyes, Both 4 times a day Start Date: 01/10/17 Status: Ordered Polysporin 500 u-52620 u/gm ointment See Instructions, APPLY A THIN LAYER TOPICALLY TWICE DAILY NEEDED TO RED, IRRITATED SKIN X 7 DAYS / SEE ANCILLARY ORDERS (BACITRACIN-POLYMYXIN OINTMENT), # 28.3 Gm, 5 Refills, Acute, [facility], 7, APPLY A THIN LAYER TOPICALLY TWICE DAILY N... Start Date: 03/30/20 Status: Ordered Polysporin 500 u-65417 u/gm ointment See Instructions, APPLY A THIN LAYER TOPICALLY TWICE DAILY NEEDED TO RED, IRRITATED SKIN X 7 DAYS / SEE ANCILLARY ORDERS (BACITRACIN-POLYMYXIN OINTMENT), # 28.3 Gm, 5 Refills, Acute, [facility], 7, APPLY A THIN LAYER TOPICALLY TWICE DAILY N... Start Date: 03/30/20 Status: Ordered pravastatin 40 mg oral tablet 1 tablet, By Mouth, Daily, IN PM FOR HYPERLIPIDEMIA., # 30 tablet, 5 Refills, Maintenance, 03/05/2111:55:00 EDT, [facility], 162.56, cm, 02/25/21 9:29:00 EDT, Height [...] MG Q6H PRN PER DR CRANE FAX [phone], 02/01/19 9:46:36 EDT, Compound Start Date: 02/01/19 Status: Ordered Suphedrin 30 mg oral tablet See Instructions, TAKE 1 TAB (30 MG) BY MOUTH EVERY 6 HRS NEEDED FOR NASAL CONGESTION/ SEE ANCILLARY ORDERS (SUDOGEST EQUIVALENT), # 30 tablet, 11 Refills, Acute, [facility], 162.56, cm, 02/24/20 9:30:00 EDT, Height Start Date: 05/22/20 Status: Ordered THERA CAPLETS THERA CAPLETS, See Instructions, # 30 each, Refills 5, Tot. Refills 5, Maintenance, TAKE ONE CAPLETBY MOUTH QD PER DR CRANE FAX [phone], 10/08/20 11:48:00 EST, [facility], 162.56, cm, 02/24/20 9:30:00 EDT, Height Start Date: 10/08/20 Status: Ordered Thera oral tablet 1 tablet, By Mouth, Daily in AM, VITAMIN., # 30 tablet, 5 Refills, Maintenance, 03/05/21 11:55:00 EDT, [facility], 30, TAKE 1 TABLET BY MOUTH DAILY IN THE AM (VITAMIN), 162.56, cm, 02/25/21 9:29:00 EDT, Height Start Date: 03/05/21 Status: Ordered Tinactin 1% spray 1 sprays, Topically, 2 times a day, # 120 mL, 1 Refills, Maintenance, 12/01/20 8:15:00 EST, [place], [facility], 1 sprays Topically 2 times a day, 162.56, cm, 02/24/20 9:30:00 EDT, Height Start Date: 12/01/20 Status: Ordered TUSSIN DM TUSSIN DM, See Instructions, # 420 mL, Refills 1, Tot. Refills 1, Maintenance, 10 ML PO Q4H PRN FORCOUGH AT BEDTIME PER DR CRANE FAX [phone], 05/22/20 8:48:00 EDT, [facility], 162.56, cm, 02/24/20 9:30:00 EDT, Height Start Date: 05/22/20 Status: Ordered Tylenol 325 mg oral tablet 650 mg, 2, tablet, By Mouth, Every 4 hours, PER DR CRNAE, # 168 tablet, Refills 5, Tot. Refills 5, Maintenance, 10/04/19 10:27:00 EST, Route to Pharmacy Electronically, [facility], 162.56, cm, 02/12/19 10:36:00 EDT, Height [...] Active Underweight(Confirmed) Active Vitamin D deficiency(Confirmed) Active 08215; repeat 2020 2colo 2006 nl, repeat 2015 3Colonoscopy 2016 positive polyp, repeat 2020. 4colo 2016 Social History Social History Type Response Smoking Status Never smoker entered on: 02/01/16 Sex
--- OUTSIDE RECORDS SUMMARY | 2024-04-02 09:41 | XMS_ITS | Continuity of Care Document ---
Author Organization [facility] [place] Todd lt Address [address] [place] [address]- Care Team Providers Care Block Trader Name Role Phone Schuyler Crane MD Primary Care Physician [phone] [facility] - 06/17/22 [facility] Adult [address] [place] [address]- Attending Physician: Admtr, Ar8 Allergies, Adverse Reactions, [...] Adult (oldterm) 08/25/04 Vishal muniz 1Result Comment: [facility]# [id number] 2Result Comment: [10/28/2016] pharmacy 3Admin Note: given [...] Replace Required Details, Route to Pharmacy Electronically, [facility], 162.56, cm, 02/25/21 9:29:00 EDT, He... Start Date: 08/31/21 Status: Ordered amLODIPine 10 mg oral tablet See Instructions, TAKE 1 TABLET (10 MG) BY MOUTH DAILY IN AM FOR HYPERTENSION, # 30 tablet, 5 Refills, [facility], 162.56, cm, 03/24/22 10:31:00 EDT, Height Start Date: 04/01/22 Status: Ordered ANTACID 500 MG CHEWABLE TAB ANTACID 500 MG CHEWABLE TAB, See Instructions, # 90 each, Refills 3, Tot. Refills 3, Maintenance, TAKE 1 TABLET PO TID FOR OSTEOPOROSIS. MAY CRUSH TABLET PER DR ROSA MARIA CRUZ [phone], 07/20/18 12:11:49EDT, Compound Start Date: 07/20/18 Status: Ordered benzonatate 100 mg oral capsule 1 capsule, By Mouth, 3 times a day, PRN NEEDED FOR COUGH / IF NO IMPROVEMENT IN 3 DAYS NOTIFY MD/ IC, JAGRUTI, # 21 capsule, 0 Refills, [facility], 162.56, cm, 12/06/21 13:34:00 EDT, Height Start Date: 02/25/22 Status: Ordered bisacodyl 10 mg rectal suppository See Instructions, INSERT 1 SUPP (10MG) INTO RECTUM NEEDED IF MILK OF MAGNESIA INEFFECTIVE AFTER 8 HRS/BISAC- EVAC EQUIVALENT/ IF SUPPOSITORY INEFFECTIVE AFTER 4 HRS CALL , # 7 supp, 11 Refills, Acute, [facility], 162.56, cm, 02/25/21 9:29:00... Start Date: 04/15/21 Status: Ordered Blood Pressure Monitor See Instructions, 1, 0, 0, 06/11/07 11:11:37, PRN, HTN, ADS OPPTHS, [facility] [address] [address] Start Date: 06/11/07 Status: Ordered calcium carbonate 500 mg (200 mg elemental calcium) oral tablet, chewable See Instructions, TAKE 1 TABLET (500 MG) BY MOUTH 3 TIMES A DAY FOR OSTEOPOROSIS MAY CRUSH TABLET IC: CALCIUM CARBONATE, # 90 tablet, Refills 5, Instructions Replace Required Details, Route to Pharmacy Electronically, [facility], 162.56, cm, 11/23... Start Date: 02/25/22 Status: Ordered cetirizine 10 mg oral tablet 1 tablet, By Mouth, Daily in AM, FOR SEASONAL ALLERGIES FROM DECEMBER THROUGH JUNE (START 12/24) SEE ANCILLARY ORDERS., # 30 tablet, 5 Refills, [facility], 162.56, cm, 12/06/21 13:34:00 EDT, Height [...] 100 MG), # 60 capsule, 5 Refills, [facility], 162.56, cm, 12/06/21 13:34:00 EDT, Height Start Date: 01/13/22 Status: Ordered EARWAX TREATMENT DROPS 6.5% EARWAX TREATMENT DROPS 6.5%, See Instructions, # 1 each, Refills 11, Tot. Refills 11, Maintenance, USE DIRECTED FAX [phone], 12/02/20 14:40:00 EST, [facility];, [facility], 162.56, cm, [...] 30ML=2,400MG, # 300 mL, 5 Refills, Acute, [facility], 162.56, cm, 02/24/20 9:30:00 EDT, Height Start Date: 10/30/20 Status: Ordered MILLITRIUM TABLET See Instructions, 30, 11, 11, 06/20/08 13:07:29, TAKE 1 TABLET BY MOUTH DAILY (VITAMIN), [facility] [address] [place] [address], Constant Indicator, MILLITRIUM TABLET Start Date: 06/20/08 [...] bid prn nasal dryness PER DAWIT STOREY REGISTERED DIET TECHNICIAN-C FAX [phone], 11/02/18 14:15:30 EST, Compound Start Date: 11/02/18 Status: Ordered Ocuflox 0.3% solution 2 drops, Eyes, Both, 4 times a day, # 10 mL, 0 Refills, Maintenance, 01/10/17 14:21:09, Ophth Solution, 2 drops Eyes, Both 4 times a day Start Date: 01/10/17 Status: Ordered Polysporin 500 u-43498 u/gm ointment See Instructions, APPLY A THIN LAYER TOPICALLY TWICE DAILY NEEDED TO RED, IRRITATED SKIN X 7 DAYS / SEE ANCILLARY ORDERS (BACITRACIN-POLYMYXIN OINTMENT), # 28.3 Gm, 5 Refills, Maintenance, 04/14/21 14:39:00 EDT, [facility], 7, APPLY A THIN LAY... Start Date: 04/14/21 Status: Ordered pravastatin 40 mg oral tablet 1 tablet, By Mouth, Daily, IN PM FOR HYPERLIPIDEMIA., # 30 tablet, 5 Refills, [facility], 162.56, cm, 12/06/21 13:34:00 EDT, Height [...] (SUPHEDRIN EQUIVALENT), # 30 tablet, 11 Refills, [facility], 162.56, cm, 03/24/22 10:31:00 EDT, Height Start Date: 04/22/22 Status: Ordered SUDOGEST 30 MG TABLETS SUDOGEST 30 MG TABLETS, See Instructions, # 30 each, Refills 11, Tot. Refills 11, Maintenance, TAKE30 MG Q6H PRN PER DR CRANE FAX [phone], 02/01/19 9:46:36 EDT, Compound Start Date: 02/01/19 Status: Ordered THERA CAPLETS THERA CAPLETS, See Instructions, # 30 each, Refills 5, Tot. Refills 5, Maintenance, TAKE ONE CAPLETBY MOUTH QD PER DR CRANE FAX [phone], 10/08/20 11:48:00 EST, Compound, 162.56, cm, 02/24/20 9:30:00 EDT, Height Start Date: 10/08/20 Status: Ordered Thera oral tablet See Instructions, TAKE 1 TABLET BY MOUTH DAILY IN THE AM (VITAMIN), # 30 tablet, 5 Refills, [facility], 30, TAKE 1 TABLET BY MOUTH [...] mL, 1 Refills, Maintenance, 12/01/20 8:15:00 EST, [place], 1 sprays Topically 2 times a day, 162.56, cm, 02/24/20 9:30:00 EDT, Height Start Date: 12/01/20 Status: Ordered TUSSIN DM TUSSIN DM, See Instructions, # 420 mL, Refills 1, Tot. Refills 1, Maintenance, 10 ML PO Q4H PRN FORCOUGH AT BEDTIME PER DR CRANE FAX [phone], 05/22/20 8:48:00 EDT, Compound, 162.56, cm, 02/24/20 [...] Seizure disorder(Confirmed) Active Vitamin D deficiency(Confirmed) Active 85842; repeat 2020 2colo 2006 nl, repeat 2016 3Colonoscopy 2016 positive polyp, repeat 2020. 4colo 2015 Procedures Procedure Date Related Diagnosis Body Site Status Colonoscopy 1 12/30/15 Completed 1repeat 2020 Vital Signs Most recent to oldest [Reference Range]: 1 Dry Weight 53 kg (02/04/15 8:06 AM) Social History Social History Type Response Smoking Status Never smoker entered on: 02/01/16 Sex Care Team Personnel Name: Rosa Maria HUSTON, Schuyler Pope Address: [address] [place] [address] [place], [place] [address]
--- OUTSIDE RECORDS SUMMARY | 2024-04-02 09:41 | XMS_ITS | Continuity of Care Document ---
Author Organization [facility] Mike Montes Todd lt Address [address] [place] [address]- Care Team Providers Care Waterproofer Helper Name Role Phone Schuyler Crane MD Primary Care Physician [facility] 09[facility]23 - 10/29/23 [facility] Adult [address] [place] [address]- Allergies, Adverse Reactions, Alerts Substance Reaction Severity [...] Td - [facility]# [id number] 2Result Comment: PCV23 - [facility]# [id number] 3Result Comment: [facility]# [id number] 4Result Comment: [10/28/2016] pharmacy 5Admin Note: given [...] 10/14/22 8:03:00 EST, Route to Pharmacy Electronically, [facility], 162.56, cm, 07/04/22 8:33:00 EDT, Height Start Date: 10/14/22 Status: Ordered All Day Allergy 10 mg oral tablet See Instructions, TAKE 1 TABLET (10 MG) BY MOUTH DAILY IN THE AM FOR SEASONAL ALLERGIES FROM DECEMBER THROUGH JUNE (START 12/24 / END 07/25) SEE ANCILLARY ORDERS, # 30 tablet, 2 Refills, Maintenance, 04/13/23 14:33:00 EDT, [facility], 162.56, cm, 0... Start Date: 04/13/23 Status: Ordered amLODIPine 10 mg oral tablet 1 tablet, By Mouth, Daily in AM, FOR HYPERTENSION., # 30 tablet, 5 Refills, Maintenance, 10/25/23 0:22:00 EST, [facility], 162.56, cm, 10/03/23 9:00:00 EST, Height Start Date: 10/25/23 Status: Ordered ANTACID 500 MG CHEWABLE TAB ANTACID 500 MG CHEWABLE TAB, See Instructions, # 90 each, Refills 3, Tot. Refills 3, Maintenance, TAKE 1 TABLET PO TID FOR OSTEOPOROSIS. MAY CRUSH TABLET PER DR ROSA MARIA CRUZ [phone], 07/20/18 12:11:49EDT, Compound Start Date: 07/20/18 Status: Ordered benzonatate 100 mg oral capsule 1 capsule, By Mouth, 3 times a day, PRN NEEDED FOR COUGH / IF NO IMPROVEMENT IN 3 DAYS NOTIFY MD/ IC, JAGRUTI, # 21 capsule, 0 Refills, Maintenance, 10/05/23 12:01:00 EST, [facility], 162.56, cm, 10/03/23 9:00:00 EST, Height Start Date: 10/05/23 Status: Ordered bisacodyl 10 mg rectal suppository See Instructions, INSERT 1 SUPP (10MG) INTO RECTUM NEEDED IF MILK OF MAGNESIA INEFFECTIVE AFTER 8 HRS/BISAC- EVAC EQUIVALENT/ IF SUPPOSITORY INEFFECTIVE AFTER 4 HRS CALL MD, # 7 supp, 11 Refills, Acute, [facility], 162.56, cm, 02/25/21 9:29:00... Start Date: 04/15/21 Status: Ordered Blood Pressure Monitor See Instructions, 1, 0, 0, 06/11/07 11:11:37, PRN, HTN, ADS OPPTHS, [facility] [place] [address] Start Date: 06/11/07 Status: Ordered calcium carbonate 500 mg (200 mg elemental calcium) oral tablet, chewable 1, tablet, By Mouth, 3 times a day, CRUSH. IC: CALCIUM CARBONATE, # 90 tablet, Refills 5, Maintenance, 10/02/23 8:50:00 EST, Route to Pharmacy Electronically, [facility], 162.56, cm, 09/19/23 10:28:00 EST, Height Start Date: 10/02/23 Status: Ordered carbamide peroxide 6.5% otic solution See Instructions, INSTILL 4 DROPS INTO EACH EAR TWICE DAILY FOR 5 DAYS EACH MONTH / IC: CARBAMIDE PEROXIDE (EAR DROPS 6.5%), # 15 mL, 11 Refills, Maintenance, 09/01/23 9:17:00 EST, [facility], 30, INSTILL 4 DROPS INTO EACH [...] capsule, 5 Refills, Maintenance, 06/06/23 14:01:00 EDT, [facility], 162.56, cm, 05/15/23 9:41:00 EDT, Height Start Date: 06/06/23 Status: Ordered EARWAX TREATMENT DROPS 6.5% EARWAX TREATMENT DROPS 6.5%, See Instructions, # 1 each, Refills 11, Tot. Refills 11, Maintenance, USE DIRECTED FAX [phone], 12/02/20 14:40:00 EST, [facility];, [facility], 162.56, cm, 02/24/20 9:30:00 EDT, Height Start Date: 12/02/20 Status: Ordered fluoride 1.1% topical gel See Instructions, USE 1/4 INCH OF GEL TO BRUSH TEETH DAILY IN THE EVENING / BRUSH THOROUGHLY ALONG GUMLINE IC: DENTAGEL, # 56 Gm, 11 Refills, Maintenance, 09/21/23 16:44:00 EST, [facility], 30, USE 1/4 INCH OF GEL TO BRUSH TEETH DAILY IN THE EVEN... Start Date: 09/21/23 Status: Ordered Carolyn-jag 8.6 mg oral tablet 1 tablet, By Mouth, Daily in PM, FOR CONSTIPATION / SEE MILK OF MAG ORDERS / IC: SENNA 8.6 MG, # 15tablet, 6 Refills, Maintenance, 10/14/22 8:03:00 EST, [facility], 162.56, cm, 07/04/22 8:33:00EDT, Height Start Date: 10/14/22 Status: Ordered Hospital Bed See Instructions, # 1 each, Refills 0, Tot. Refills 0, Maintenance, Electric Hospital Bed DX: Left hip fracture, seizure dis, impulse control disorder, atypical autism. Duration ongoing NPI#[id number] Height: 5'6 Weight: 137lbs, 03/22/23 13:55:... Start Date: 03/22/23 Status: Ordered Milk of Magnesia 8% oral suspension See Instructions, TAKE 2 TABLESPOONFULS (30 ML) BY MOUTH AT BEDTIME NEEDED FOR CONSTIPATION ON DAY 3 OF NO BM / SEE BISCOLAX SUPP ORDER 30ML=2,400MG, # 300 mL, 5 Refills, Acute, [facility], 162.56, cm, 02/24/20 9:30:00 EDT, Height Start Date: 10/30/20 Status: Ordered MILLITRIUM TABLET See Instructions, 30, 11, 11, 06/20/08 13:07:29, TAKE 1 TABLET BY MOUTH DAILY (VITAMIN), [facility] [address] [place] [id number], Constant Indicator, MILLITRIUM TABLET Start Date: 06/20/08 [...] tablet, 0 Refills, Maintenance, 10/03/23 8:50:00 EST, [facility], Partial fill upon patient request if the prescription... Start Date: 10/03/23 Status: Ordered Polysporin 500 u-82868 u/gm ointment See Instructions, APPLY A THIN LAYER TOPICALLY TWICE DAILY NEEDED TO RED, IRRITATED SKIN X 7 DAYS / SEE ANCILLARY ORDERS (BACITRACIN-POLYMYXIN OINTMENT), # 28.3 Gm, 5 Refills, Maintenance, 04/18/23 8:59:00 EDT, [facility], 7, APPLY A THIN LAYE... Start Date: 04/18/23 Status: Ordered pravastatin 40 mg oral tablet 1 tablet, By Mouth, Daily, IN PM FOR HYPERLIPIDEMIA., # 30 tablet, 5 Refills, Maintenance, 248:50:00 EST, [facility], 162.56, cm, 09/19/23 10:28:00 EST, Height Start Date: 10/02/23 Status: Ordered Profola oral tablet 1 tablet, By Mouth, Daily, # 30 tablet, 11 Refills, Maintenance, 05/19/23 10:41:00 EDT, [facility], Partial fill upon patient request if [...] tablet, 11 Refills, Maintenance, 10/26/23 8:49:00 EST, [facility], 162.56, cm, 10/03/23 9:00:00 EST, Height Start Date: 10/26/23 Status: Ordered SUDOGEST 30 MG TABLETS SUDOGEST 30 MG TABLETS, See Instructions, # 30 each, Refills 11, Tot. Refills 11, Maintenance, TAKE30 MG Q6H PRN PER DR CRANE FAX [phone], 02/01/19 9:46:36 EDT, Compound Start Date: 02/01/19 [...] mL, 1 Refills, Maintenance, 12/01/20 8:15:00 EST, [place], [facility], 1 sprays Topically 2 times a day, 162.56, cm, 02/24/20 9:30:00 EDT, Height Start Date: 12/01/20 Status: Ordered TUSSIN DM KAILYNIN KUSHAL, See Instructions, # 420 mL, Refills 1, Tot. Refills 1, Maintenance, 10 ML PO Q4H PRN FORCOUGH AT BEDTIME PER DR CRANE FAX [phone], 05/22/20 8:48:00 EDT, [facility], 162.56, cm, 02/24/20 [...] Confirmed Active Vitamin D deficiency Confirmed Active 37728; repeat 2020 2colo 2006 nl, repeat 2015 3Colonoscopy 2016 positive polyp, repeat 2020. 4colo 2015 Social History Social History Type Response Smoking Status Never smoker entered on: 02/01/16 Sex Patient Care team information Care Team Personnel Name: Rosa Maria HUSTON, Schuyler Pope Position: [facility] Physician - Primary Care Member Role: PCP Address: Address: [address] [facility] [address]- Care Team Related Persons Name: ELLE ALMEIDA Address: home [address] [place] [address] [place] [address] Name: ZAK SHELL
--- OUTSIDE RECORDS SUMMARY | 2024-04-02 09:41 | XMS_ITS | Continuity of Care Document ---
Author Organization [facility] [place] Todd lt Address [address] [place] [address]- Care Team Providers Care Shelter Advocate Name Role Phone Schuyler Crane MD Primary Care Physician [facility]): 10[facility]22 - 11/19/22 [facility] Adult [address] [place] [address]- Allergies, Adverse Reactions, Alerts Substance Reaction Severity [...] Adult (oldterm) 08/25/04 G cristy 1Result Comment: [facility]# [id number] 2Result Comment: [10/28/2016] pharmacy 3Admin Note: given [...] 10/14/22 8:03:00 EST, Route to Pharmacy Electronically, [facility], 162.56, cm, 07/04/22 8:33:00 EDT, Height Start Date: 10/14/22 Status: Ordered All Day Allergy 10 mg oral tablet See Instructions, TAKE 1 TABLET (10 MG) BY MOUTH DAILY IN THE AM FOR SEASONAL ALLERGIES FROM DECEMBER THROUGH JUNE (START 12/24 / END 07/25) SEE ANCILLARY ORDERS, # 30 tablet, 2 Refills, Maintenance, 07/22/22 15:15:00 EDT, [facility], 162.56, cm, 1... Start Date: 07/22/22 Status: Ordered amLODIPine 10 mg oral tablet See Instructions, TAKE 1 TABLET (10 MG) BY MOUTH DAILY IN AM FOR HYPERTENSION, # 30 tablet, 5 Refills, 09/29/22 11:37:00 EST, [facility], 162.56, cm, 07/04/22 8:33:00 EDT, Height Start Date: 09/29/22 Status: Ordered ANTACID 500 MG CHEWABLE TAB ANTACID 500 MG CHEWABLE TAB, See Instructions, # 90 each, Refills 3, Tot. Refills 3, Maintenance, TAKE 1 TABLET PO TID FOR OSTEOPOROSIS. MAY CRUSH TABLET PER DR CRANE FX [phone], 07/20/18 12:11:49EDT, Compound Start Date: 07/20/18 Status: Ordered benzonatate 100 mg oral capsule 1 capsule, By Mouth, 3 times a day, PRN NEEDED FOR COUGH / IF NO IMPROVEMENT IN 3 DAYS NOTIFY MD/ IC, JAGRUTI, # 21 capsule, 0 Refills, [facility], 162.56, cm, 12/06/21 13:34:00 EDT, Height Start Date: 02/25/22 Status: Ordered bisacodyl 10 mg rectal suppository See Instructions, INSERT 1 SUPP (10MG) INTO RECTUM NEEDED IF MILK OF MAGNESIA INEFFECTIVE AFTER 8 HRS/BISAC- EVAC EQUIVALENT/ IF SUPPOSITORY INEFFECTIVE AFTER 4 HRS CALL MD, # 7 supp, 11 Refills, Acute, [facility], 162.56, cm, 02/25/21 9:29:00... Start Date: 04/15/21 Status: Ordered Blood Pressure Monitor See Instructions, 1, 0, 0, 06/11/07 11:11:37, PRN, HTN, ADS OPPTHS, [facility] [id number] [place] [address] Start Date: 06/11/07 Status: Ordered calcium carbonate [...] mL, 11 Refills, Maintenance, 08/21/22 7:49:00 EST, [facility], 30, INSTILL 4 DROPS INTO EACH [...] capsule, 5 Refills, Maintenance, 10/20/22 6:09:00 EST, [facility], 162.56, cm, 07/04/22 8:33:00 EDT, Height Start Date: 10/20/22 Status: Ordered EARWAX TREATMENT DROPS 6.5% EARWAX TREATMENT DROPS 6.5%, See Instructions, # 1 each, Refills 11, Tot. Refills 11, Maintenance, USE DIRECTED FAX [phone], 12/02/20 14:40:00 EST, [facility];, [facility], 162.56, cm, 02/24/20 9:30:00 EDT, Height Start Date: 12/02/20 Status: Ordered fluoride 1.1% topical gel See Instructions, USE 1/4 INCH OF GEL TO BRUSH TEETH DAILY IN THE EVENING / BRUSH THOROUGHLY ALONG GUMLINE IC: DENTAGEL, # 56 Gm, 11 Refills, [facility], 30, USE 1/4 INCH OF GEL TO BRUSH TEETH DAILY IN THE EVENING / BRUSH THOROUGHLY ALONG GUMLINE... Start Date: 01/28/22 Status: Ordered Carolyn-jag 8.6 mg oral tablet 1 tablet, By Mouth, Daily in PM, FOR CONSTIPATION / SEE MILK OF MAG ORDERS / IC: SENNA 8.6 MG, # 15tablet, 6 Refills, Maintenance, 10/14/22 8:03:00 EST, [facility], 162.56, cm, 07/04/22 8:33:00EDT, Height Start [...] 30ML=2,400MG, # 300 mL, 5 Refills, Acute, [facility], 162.56, cm, 02/24/20 9:30:00 EDT, Height Start Date: 10/30/20 Status: Ordered MILLITRIUM TABLET See Instructions, 30, 11, 11, 06/20/08 13:07:29, TAKE 1 TABLET BY MOUTH DAILY (VITAMIN), [facility] [address] [place] [address], Constant Indicator, MILLITRIUM TABLET Start Date: 06/20/08 [...] bid prn nasal dryness PER DAWIT STOREY SECOND GRADE TEACHER-C FAX [phone], 11/02/18 14:15:30 EST, Compound Start Date: 11/02/18 Status: Ordered Ocuflox 0.3% solution 2 drops, Eyes, Both, 4 times a day, # 10 mL, 0 Refills, Maintenance, 01/10/17 14:21:09, Ophth Solution, 2 drops Eyes, Both 4 times a day Start Date: 01/10/17 Status: Ordered Polysporin 500 u-97025 u/gm ointment See Instructions, APPLY A THIN LAYER TOPICALLY TWICE DAILY NEEDED TO RED, IRRITATED SKIN X 7 DAYS / SEE ANCILLARY ORDERS (BACITRACIN-POLYMYXIN OINTMENT), # 28.3 Gm, 5 Refills, Maintenance, 04/14/21 14:39:00 EDT, [facility], 7, APPLY A THIN LAY... Start Date: 04/14/21 Status: Ordered pravastatin 40 mg oral tablet See Instructions, TAKE 1 TABLET (40 MG) BY MOUTH DAILY IN PM FOR HYPERLIPIDEMIA, # 30 tablet, 5 Refills, Maintenance, 08/21/22 14:03:00 EST, [facility], 162.56, cm, 07/04/22 8:33:00 EDT, Height [...] (SUPHEDRIN EQUIVALENT), # 30 tablet, 11 Refills, [facility], 162.56, cm, 03/24/22 10:31:00 EDT, Height Start Date: 04/22/22 Status: Ordered SUDOGEST 30 MG TABLETS SUDOGEST 30 MG TABLETS, See Instructions, # 30 each, Refills 11, Tot. Refills 11, Maintenance, TAKE30 MG Q6H PRN PER DR CRANE FAX [phone], 02/01/19 9:46:36 EDT, Compound Start Date: 02/01/19 Status: Ordered THERA CAPLETS THERA CAPLETS, See Instructions, # 30 each, Refills 5, Tot. Refills 5, Maintenance, TAKE ONE CAPLETBY MOUTH QD PER DR CRANE FAX [phone], 10/08/20 11:48:00 EST, [facility], 162.56, cm, 02/24/20 9:30:00 EDT, Height Start Date: 10/08/20 Status: Ordered Thera oral tablet See Instructions, TAKE 1 TABLET BY MOUTH DAILY IN THE AM (VITAMIN), # 30 tablet, 5 Refills, Maintenance, 08/25/22 14:03:00 EST, [facility], 30, TAKE 1 TABLET BY MOUTH [...] mL, 1 Refills, Maintenance, 12/01/20 8:15:00 EST, [place], [facility], 1 sprays Topically 2 times a day, 162.56, cm, 02/24/20 9:30:00 EDT, Height Start Date: 12/01/20 Status: Ordered KAILYNIN KUSHAL FATIMA, See Instructions, # 420 mL, Refills 1, Tot. Refills 1, Maintenance, 10 ML PO Q4H PRN FORCOUGH AT BEDTIME PER DR CRANE FAX [phone], 05/22/20 8:48:00 EDT, [facility], 162.56, cm, 02/24/20 [...] Confirmed Active Vitamin D deficiency Confirmed Active 96762; repeat 2020 2colo 2006 nl, repeat 2015 3Colonoscopy 2016 positive polyp, repeat 2020. 4colo 2015 Social History Social History Type Response Smoking Status Never smoker entered on: 02/01/16 Sex Patient Care team information Care Team Personnel Name: Bisi HUSTON, Schuyler Pope Position: S Primary Care Physician Member Role: PCP Address: Address: [address] [place] [address]- Care Team Related Persons Name: ELLE ALMEIDA Address: home [address] [place] [address] Name: ZAK SHELL
--- OUTSIDE RECORDS SUMMARY | 2024-04-02 09:41 | XMS_ITS | Continuity of Care Document ---
Author Organization [facility] Salvatore Todd lt Address [address] [place] [address]- Care Team Providers Care Powerhouse Tender Name Role Phone Schuyler Crane MD Primary Care Physician [phone] [facility] - 09/06/20 [facility] Adult [address] [place] [address]- Allergies, Adverse Reactions, Alerts Substance Reaction Severity [...] 5 Refills, Soft Stop, 04/03/20 16:18:00 EDT, [facility], 162.56, cm, 02/24/20 9:30:00 EDT, Height Start Date: 04/03/20 Status: Ordered amLODIPine 10 mg oral tablet 10 mg, 1, tablet, By Mouth, Daily, # 90 tablet, Refills 1, Tot. Refills 1, Soft Stop, 04/09/20 13:02:00 EDT, Route to Pharmacy Electronically, [facility], 162.56, cm, 02/24/20 9:30:00 EDT, Height Start Date: 04/09/20 Status: Ordered ANTACID 500 MG CHEWABLE TAB ANTACID 500 MG CHEWABLE TAB, See Instructions, # 90 each, Refills 3, Tot. Refills 3, Maintenance, TAKE 1 TABLET PO TID FOR OSTEOPOROSIS. MAY CRUSH TABLET PER DR CRANE FX [phone], 07/20/18 12:11:49EDT, Compound Start Date: 07/20/18 Status: Ordered Bisco-Lax 10 mg rectal suppository See Instructions, INSERT 1 SUPP (10MG) INTO RECTUM NEEDED IF MILK OF MAGNESIA INEFFECTIVE AFTER 8 HRS/BISAC- EVAC EQUIVALENT/ IF SUPPOSITORY INEFFECTIVE AF, # 7 supp, 11 Refills, Acute, [facility], 162.56, cm, 02/24/20 9:30:00 EDT, Height Start Date: 03/30/20 Status: Ordered Blood Pressure Monitor See Instructions, 1, 0, 0, 06/11/07 11:11:37, PRN, HTN, ADS OPPTHS, [facility] [id number] [place] [address] Start Date: 06/11/07 Status: Ordered calcium carbonate 500 mg (200 mg elemental calcium) oral tablet, chewable 500 mg, 1, tablet, By Mouth, 3 times a day, PER DR CRANE, # 90 tablet, Refills 11, Tot. Refills 11, Maintenance, 12/09/19 14:35:00 EDT, Route to Pharmacy Electronically, [facility], 162.56, cm, 02/12/19 10:36:00 EDT, Height [...] Gm, 11 Refills, Maintenance, 08/07/20 11:11:00 EST, [facility], 30, USE 1/4 INCH OF GEL TO BRUSH TEETH DAILY IN THE EVENING / BRUSH T... Start Date: 08/07/20 Status: Ordered docusate sodium 100 mg oral capsule 1 capsule, By Mouth, 2 times a day, # 60 capsule, 5 Refills, Maintenance, 07/30/20 15:26:00 EST, [facility], 162.56, cm, 02/24/20 9:30:00 EDT, Height Start Date: 07/30/20 Status: Ordered EARWAX TREATMENT DROPS 6.5% EARWAX TREATMENT DROPS 6.5%, See Instructions, # 1 each, Refills 11, Tot. Refills 11, Maintenance, USE DIRECTED FAX [phone], 10/01/19 11:14:00 EST, [facility];, Compound Start Date: [...] TAKE 1 TABLET BY MOUTH DAILY (VITAMIN), [facility] [address] [place] [address], Constant Indicator, MILLITRIUM TABLET Start Date: 06/20/08 [...] bid prn nasal dryness PER DAWIT STOREY PLYWOOD [employer] BACK FEEDER-C FAX [phone], 11/02/18 14:15:30 EST, Compound Start Date: 11/02/18 Status: Ordered Ocuflox 0.3% solution 2 drops, Eyes, Both, 4 times a day, # 10 mL, 0 Refills, Maintenance, 01/10/17 14:21:09, Ophth Solution, 2 drops Eyes, Both 4 times a day Start Date: 01/10/17 Status: Ordered Polysporin 500 u-40163 u/gm ointment See Instructions, APPLY A THIN LAYER TOPICALLY TWICE DAILY NEEDED TO RED, IRRITATED SKIN X 7 DAYS / SEE ANCILLARY ORDERS (BACITRACIN-POLYMYXIN OINTMENT), # 28.3 Gm, 5 Refills, Acute, [facility], 7, APPLY A THIN LAYER TOPICALLY TWICE DAILY N... Start Date: 03/30/20 Status: Ordered Polysporin 500 u-53961 u/gm ointment See Instructions, APPLY A THIN [...] MG Q6H PRN PER DR CRANE FAX [phone], 02/01/19 9:46:36 EDT, Compound Start Date: 02/01/19 [...] MOUTH QD PER DR ROSA MARIA ANN [phone], 03/12/20 12:59:00 EDT, [facility], 162.56, cm, 02/24/20 9:30:00 EDT, Height Start Date: 03/12/20 Status: Ordered Tinactin 1% spray 1 sprays, Topically, 2 times a day, # 120 mL, 1 Refills, Maintenance, 11/01/19 10:28:00 EST, [place], 1 sprays Topically 2 times a day, 162.56, cm, 02/12/19 10:36:00 EDT, Height Start Date: 11/01/19 Status: Ordered TUSSIN DM KAILYNIN DM, See Instructions, # 420 mL, Refills 1, Tot. Refills 1, Maintenance, 10 ML PO Q4H PRN FORCOUGH AT BEDTIME PER DR CRANE FAX [phone], 05/22/20 8:48:00 EDT, [facility], 162.56, cm, 02/24/20 9:30:00 EDT, Height Start Date: 05/22/20 Status: Ordered Tylenol 325 mg oral tablet 650 mg, 2, tablet, By Mouth, Every 4 hours, PER DR CRANE, # 168 tablet, Refills 5, Tot. Refills 5, Maintenance, 10/04/19 10:27:00 EST, Route to Pharmacy Electronically, [facility], 162.56, cm, 02/12/19 10:36:00 EDT, Height [...] Active Underweight(Confirmed) Active Vitamin D deficiency(Confirmed) Active 17827; repeat 2020 2colo 2006 nl, repeat 2015 3Colonoscopy 2016 positive polyp, repeat 2020. 4colo 2015 Social History Social History Type Response Smoking Status Never smoker entered on: 02/01/16 Sex
--- OUTSIDE RECORDS SUMMARY | 2024-04-02 09:41 | XMS_ITS | Continuity of Care Document ---
Author Organization [facility] Todd lt Address [address] [place] [address]- Care Team Providers Care Quilt Maker Name Role Phone Schuyler Crane MD Primary Care Physician [phone] [facility] 04[facility]21 - 05/01/21 [facility] Adult [address] [place] [address]- Allergies, Adverse Reactions, Alerts Substance Reaction Severity [...] 04/01/21 15:49:00 EDT, Route to Pharmacy Electronically, [facility], 162.56, cm, 02/25/21 9:29:00 EDT, Height Start Date: 04/01/21 Status: Ordered ANTACID 500 MG CHEWABLE TAB ANTACID 500 MG CHEWABLE TAB, See Instructions, # 90 each, Refills 3, Tot. Refills 3, Maintenance, TAKE 1 TABLET PO TID FOR OSTEOPOROSIS. MAY CRUSH TABLET PER DR CRANE FX [phone], 07/20/18 12:11:49EDT, Compound Start Date: 07/20/18 Status: Ordered bisacodyl 10 mg rectal suppository See Instructions, INSERT 1 SUPP (10MG) INTO RECTUM NEEDED IF MILK OF MAGNESIA INEFFECTIVE AFTER 8 HRS/BISAC- EVAC EQUIVALENT/ IF SUPPOSITORY INEFFECTIVE AFTER 4 HRS CALL , # 7 supp, 11 Refills, Acute, [facility], 162.56, cm, 02/25/21 9:29:00... Start Date: 04/15/21 Status: Ordered Blood Pressure Monitor See Instructions, 1, 0, 0, 06/11/07 11:11:37, PRN, HTN, ADS OPPTHS, [facility] [id number] [place] [address] Start Date: 06/11/07 Status: Ordered calcium carbonate 500 mg (200 mg elemental calcium) oral tablet, chewable 500 mg, 1, tablet, By Mouth, 3 times a day, PER DR CRANE, # 90 tablet, Refills 5, Tot. Refills 5, Maintenance, 04/02/21 14:35:00 EDT, Route to Pharmacy Electronically, [facility], 162.56, cm, 02/25/21 9:29:00 EDT, Height Start Date: 04/02/21 Stop Date: 09/29/21 Status: Ordered cetirizine 10 mg oral tablet See Instructions, TAKE 1 TABLET (10 MG) BY MOUTH DAILY IN THE AM FOR SEASONAL ALLERGIES FROM DECEMBER THROUGH JUNE (START 12/24) SEE ANCILLARY ORDERS, # 30 tablet, 5 Refills, Maintenance, [facility], 162.56, cm, 02/25/21 9:29:00 EDT, He... Start Date: 02/25/21 Status: Ordered cetirizine 10 mg oral tablet 1 tablet, By Mouth, Daily in AM, FOR SEASONAL ALLERGIES FROM DECEMBER THROUGH JUNE (START 12/24) SEE ANCILLARY ORDERS., # 30 tablet, 5 Refills, Maintenance, 02/25/21 13:04:00 EDT, [facility], 162.56, cm, 02/25/21 9:29:00 EDT, Height [...] Gm, 11 Refills, Maintenance, 08/07/20 11:11:00 EST, [facility], 30, USE 1/4 INCH OF GEL TO BRUSH TEETH DAILY IN THE EVENING / BRUSH T... Start Date: 08/07/20 Status: Ordered docusate sodium 100 mg oral capsule 1 capsule, By Mouth, 2 times a day, # 60 capsule, 5 Refills, Maintenance, 01/28/21 15:23:00 EDT, [facility], 162.56, cm, 02/24/20 9:30:00 EDT, Height Start Date: 01/28/21 Status: Ordered EARWAX TREATMENT DROPS 6.5% EARWAX TREATMENT DROPS 6.5%, See Instructions, # 1 each, Refills 11, Tot. Refills 11, Maintenance, USE DIRECTED FAX [phone], 12/02/20 14:40:00 EST, [facility];, [facility], 162.56, cm, 02/24/20 9:30:00 EDT, Height Start Date: 12/02/20 Status: Ordered Milk of Magnesia 8% oral suspension See Instructions, TAKE 2 TABLESPOONFULS (30 ML) BY MOUTH AT BEDTIME NEEDED FOR CONSTIPATION ON DAY 3 OF NO BM / SEE BISCOLAX SUPP ORDER 30ML=2,400MG, # 300 mL, 5 Refills, Acute, [facility], 162.56, cm, 02/24/20 9:30:00 EDT, Height Start Date: 10/30/20 Status: Ordered MILLITRIUM TABLET See Instructions, 30, 11, 11, 06/20/08 13:07:29, TAKE 1 TABLET BY MOUTH DAILY (VITAMIN), [address] [address], Constant Indicator, MILLITRIUM TABLET Start Date: 06/20/08 [...] bid prn nasal dryness PER DAWIT STOREY TETRYL SCREEN OPERATOR-C FAX [phone], 11/02/18 14:15:30 EST, Compound Start Date: 11/02/18 Status: Ordered Ocuflox 0.3% solution 2 drops, Eyes, Both, 4 times a day, # 10 mL, 0 Refills, Maintenance, 01/10/17 14:21:09, Ophth Solution, 2 drops Eyes, Both 4 times a day Start Date: 01/10/17 Status: Ordered Polysporin 500 u-41694 u/gm ointment See Instructions, APPLY A THIN LAYER TOPICALLY TWICE DAILY NEEDED TO RED, IRRITATED SKIN X 7 DAYS / SEE ANCILLARY ORDERS (BACITRACIN-POLYMYXIN OINTMENT), # 28.3 Gm, 5 Refills, Maintenance, 04/14/21 14:39:00 EDT, [facility], 7, APPLY A THIN LAY... Start Date: 04/14/21 Status: Ordered pravastatin 40 mg oral tablet 1 tablet, By Mouth, Daily, IN PM FOR HYPERLIPIDEMIA., # 30 tablet, 5 Refills, Maintenance, 03/05/2111:55:00 EDT, [facility], 162.56, cm, 02/25/21 9:29:00 EDT, Height [...] MG Q6H PRN PER DR CRANE FAX [phone], 02/01/19 9:46:36 EDT, Compound Start Date: 02/01/19 Status: Ordered Suphedrin 30 mg oral tablet See Instructions, TAKE 1 TAB (30 MG) BY MOUTH EVERY 6 HRS NEEDED FOR NASAL CONGESTION/ SEE ANCILLARY ORDERS (SUDOGEST EQUIVALENT), # 30 tablet, 11 Refills, Acute, [facility], 162.56, cm, 02/24/20 9:30:00 EDT, Height Start Date: 05/22/20 Status: Ordered THERA CAPLETS THERA CAPLETS, See Instructions, # 30 each, Refills 5, Tot. Refills 5, Maintenance, TAKE ONE CAPLETBY MOUTH QD PER DR CRANE FAX [phone], 10/08/20 11:48:00 EST, [facility], 162.56, cm, 02/24/20 9:30:00 EDT, Height Start Date: 10/08/20 Status: Ordered Thera oral tablet 1 tablet, By Mouth, Daily in AM, VITAMIN., # 30 tablet, 5 Refills, Maintenance, 03/05/21 11:55:00 EDT, [facility], 30, TAKE 1 TABLET BY MOUTH DAILY IN THE AM (VITAMIN), 162.56, cm, 02/25/21 9:29:00 EDT, Height Start Date: 03/05/21 Status: Ordered Tinactin 1% spray 1 sprays, Topically, 2 times a day, # 120 mL, 1 Refills, Maintenance, 12/01/20 8:15:00 EST, [place], [facility], 1 sprays Topically 2 times a day, 162.56, cm, 02/24/20 9:30:00 EDT, Height Start Date: 12/01/20 Status: Ordered KAILYNIN KUSHAL FATIMA, See Instructions, # 420 mL, Refills 1, Tot. Refills 1, Maintenance, 10 ML PO Q4H PRN FORCOUGH AT BEDTIME PER DR CRANE FAX [phone], 05/22/20 8:48:00 EDT, [facility], 162.56, cm, 02/24/20 9:30:00 EDT, Height Start Date: 05/22/20 Status: Ordered Tylenol 325 mg oral tablet 650 mg, 2, tablet, By Mouth, Every 4 hours, PER DR CRANE, # 168 tablet, Refills 5, Tot. Refills 5, Maintenance, 10/04/19 10:27:00 EST, Route to Pharmacy Electronically, [facility], 162.56, cm, 02/12/19 10:36:00 EDT, Height [...] Active Underweight(Confirmed) Active Vitamin D deficiency(Confirmed) Active 27938; repeat 2020 2colo 2006 nl, repeat 2015 3Colonoscopy 2016 positive polyp, repeat 2020. 4colo 2015 Social History Social History Type Response Smoking Status Never smoker entered on: 02/01/16 Sex
--- OUTSIDE RECORDS SUMMARY | 2024-04-02 09:41 | XMS_ITS | Continuity of Care Document ---
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 Name Role Phone Schuyler Crane MD Primary Care Physician [facility]s): 11[facility]23[facility]23 - 12/23/23 [facility] Adult [address] [place] [address]- Allergies, Adverse Reactions, Alerts Substance Reaction Severity [...] 08/25/04 Vishal muniz 1Result Comment: Td - [facility]# [id number] 2Result Comment: PCV23 - [facility]# [id number] 3Result Comment: [facility]# [id number] 4Result Comment: [10/28/2016] pharmacy 5Admin Note: given [...] 10/14/22 8:03:00 EST, Route to Pharmacy Electronically, [facility], 162.56, cm, 07/04/22 8:33:00 EDT, Height Start Date: 10/14/22 Status: Ordered acetaminophen 325 mg oral tablet 2, tablet, By Mouth, 2 times a day, PRN, # 20 tablet, Refills 0, Tot. Refills 0, Maintenance, NEEDED, 12/12/23 11:09:00 EDT, Route to Pharmacy Electronically, [facility], 162.56, cm, 12/11/2409:47:00 EDT, Height Start Date: 12/12/23 Stop Date: 12/17/23 Status: Ordered All Day Allergy 10 mg oral tablet 1 tablet, By Mouth, Daily in AM, FOR SEASONAL ALLERGIES FROM DECEMBER THROUGH JUNE (START 12/24 / ) SEE ANCILLARY ORDERS., # 30 tablet, 11 Refills, Maintenance, 12/21/23 7:45:00 EDT, [facility], 162.56, cm, 12/12/23 10:47:00 EDT, Height Start Date: 12/21/23 Status: Ordered amLODIPine 10 mg oral tablet 1 tablet, By Mouth, Daily in AM, FOR HYPERTENSION., # 30 tablet, 5 Refills, Maintenance, 10/25/23 0:22:00 EST, [facility], 162.56, cm, 10/03/23 9:00:00 EST, Height Start Date: 10/25/23 Status: Ordered ANTACID 500 MG CHEWABLE TAB ANTACID 500 MG CHEWABLE TAB, See Instructions, # 90 each, Refills 3, Tot. Refills 3, Maintenance, TAKE 1 TABLET PO TID FOR OSTEOPOROSIS. MAY CRUSH TABLET PER DR ROSA MARIA CRUZ [phone], 07/20/18 12:11:49EDT, Compound Start Date: 07/20/18 Status: Ordered benzonatate 100 mg oral capsule 1 capsule, By Mouth, 3 times a day, PRN NEEDED FOR COUGH / IF NO IMPROVEMENT IN 3 DAYS NOTIFY MD/ IC, JAGRUTI, # 21 capsule, 0 Refills, Maintenance, 10/05/23 12:01:00 EST, [facility], 162.56, cm, 10/03/23 9:00:00 EST, Height Start Date: 10/05/23 Status: Ordered bisacodyl 10 mg rectal suppository See Instructions, INSERT 1 SUPP (10MG) INTO RECTUM NEEDED IF MILK OF MAGNESIA INEFFECTIVE AFTER 8 HRS/BISAC- EVAC EQUIVALENT/ IF SUPPOSITORY INEFFECTIVE AFTER 4 HRS CALL MD, # 7 supp, 11 Refills, Acute, [facility], 162.56, cm, 02/25/21 9:29:00... Start Date: 04/15/21 Status: Ordered Blood Pressure Monitor See Instructions, 1, 0, 0, 06/11/07 11:11:37, PRN, HTN, ADS OPPTHS, [facility] [id number] [place] [address] Start Date: 06/11/07 Status: Ordered calcium carbonate 500 mg (200 mg elemental calcium) oral tablet, chewable 1, tablet, By Mouth, 3 times a day, CRUSH. IC: CALCIUM CARBONATE, # 90 tablet, Refills 5, Maintenance, 10/02/23 8:50:00 EST, Route to Pharmacy Electronically, [facility], 162.56, cm, 09/19/23 10:28:00 EST, Height Start Date: 10/02/23 Status: Ordered carbamide peroxide 6.5% otic solution See Instructions, INSTILL 4 DROPS INTO EACH EAR TWICE DAILY FOR 5 DAYS EACH MONTH / IC: CARBAMIDE PEROXIDE (EAR DROPS 6.5%), # 15 mL, 11 Refills, Maintenance, 09/01/23 9:17:00 EST, [facility], 30, INSTILL 4 DROPS INTO EACH [...] capsule, 5 Refills, Maintenance, 11/23/23 20:00:00 EST, [facility], 162.56, cm, 10/03/23 9:00:00 EST, Height Start Date: 11/23/23 Status: Ordered EARWAX TREATMENT DROPS 6.5% EARWAX TREATMENT DROPS 6.5%, See Instructions, # 1 each, Refills 11, Tot. Refills 11, Maintenance, USE DIRECTED FAX [phone], 12/02/20 14:40:00 EST, [facility], 162.56, cm, 02/24/20 9:30:00 EDT, Height Start Date: 12/02/20 Status: Ordered fluoride 1.1% topical gel See Instructions, USE 1/4 INCH OF GEL TO BRUSH TEETH DAILY IN THE EVENING / BRUSH THOROUGHLY ALONG GUMLINE IC: DENTAGEL, # 56 Gm, 11 Refills, Maintenance, 09/21/23 16:44:00 EST, [facility], 30, USE 1/4 INCH OF GEL TO BRUSH TEETH DAILY IN THE EVEN... Start Date: 09/21/23 Status: Ordered Carolyn-jag 8.6 mg oral tablet 1 tablet, By Mouth, Daily in PM, FOR CONSTIPATION / SEE MILK OF MAG ORDERS / IC: SENNA 8.6 MG, # 15tablet, 6 Refills, Maintenance, 10/14/22 8:03:00 EST, [facility], 162.56, cm, 07/04/22 8:33:00EDT, Height Start Date: 10/14/22 Status: Ordered Hospital Bed See Instructions, # 1 each, Refills 0, Tot. Refills 0, Maintenance, [facility] DX: Left hip fracture, seizure dis, impulse control disorder, atypical autism. Duration ongoing NPI#[id number] Height: 5'6 Weight: 137lbs, 03/22/23 13:55:... Start [...] TAKE 1 TABLET BY MOUTH DAILY (VITAMIN), [facility] [address] [place] [address], Constant Indicator, MILLITRIUM TABLET Start Date: 06/20/08 [...] Start Date: 10/03/23 Status: Ordered Polysporin 500 u-15616 u/gm ointment See Instructions, APPLY A THIN LAYER TOPICALLY TWICE DAILY NEEDED TO RED, IRRITATED SKIN X 7 DAYS / SEE ANCILLARY ORDERS (BACITRACIN-POLYMYXIN OINTMENT), # 28.3 Gm, 5 Refills, Maintenance, 04/18/23 8:59:00 EDT, [facility], 7, APPLY A THIN LAYE... Start Date: 04/18/23 Status: Ordered pravastatin 40 mg oral tablet 1 tablet, By Mouth, Daily, IN PM FOR HYPERLIPIDEMIA., # 30 tablet, 5 Refills, Maintenance, 248:50:00 EST, [facility], 162.56, cm, 09/19/23 10:28:00 EST, Height Start Date: 10/02/23 Status: Ordered Profola oral tablet 1 tablet, By Mouth, Daily, # 30 tablet, 11 Refills, Maintenance, 05/19/23 10:41:00 EDT, [facility], Partial fill upon patient request if [...] tablet, 11 Refills, Maintenance, 10/26/23 8:49:00 EST, [facility], 162.56, cm, 10/03/23 9:00:00 EST, Height Start Date: 10/26/23 Status: Ordered SUDOGEST 30 MG TABLETS SUDOGEST 30 MG TABLETS, See Instructions, # 30 each, Refills 11, Tot. Refills 11, Maintenance, TAKE30 MG Q6H PRN PER DR CRANE FAX [phone], 02/01/19 9:46:36 EDT, Compound Start Date: 02/01/19 Status: Ordered Thera oral tablet 1 tablet, By Mouth, Daily in AM, VITAMIN., # 30 tablet, 5 Refills, Maintenance, 10/25/23 10:03:00 EST, [facility], 30, TAKE 1 TABLET BY MOUTH [...] mL, 1 Refills, Maintenance, 12/01/20 8:15:00 EST, [place], [facility], 1 sprays Topically 2 times a day, 162.56, cm, 02/24/20 9:30:00 EDT, Height Start Date: 12/01/20 Status: Ordered TUSSIN DM TUSSIN DM, See Instructions, # 420 mL, Refills 1, Tot. Refills 1, Maintenance, 10 ML PO Q4H PRN FORCOUGH AT BEDTIME PER DR CRANE FAX [phone], 05/22/20 8:48:00 EDT, [facility], 162.56, cm, 02/24/20 [...] Confirmed Active Vitamin D deficiency Confirmed Active 11573; repeat 2020 2colo 2006 nl, repeat 2015 3Colonoscopy 2016 positive polyp, repeat 2020. 4colo 2015 Social History Social History Type Response Smoking Status Never smoker entered on: 02/01/16 Sex Patient Care team information Care Team Personnel Name: Rosa Maria HUSTON, Schuyler Pope Position: [facility] Physician - Primary Care Member Role: PCP Address: Address: [address] [place] [address] [place] [address]- Care Team Related Persons Name: ELLE ALMEIDA Address: [address] [place] [address] Name: ZAK SHELL
--- OUTSIDE RECORDS SUMMARY | 2024-04-02 09:41 | XMS_ITS | Continuity of Care Document ---
Author Organization [facility] [place] Todd lt Address [address] [place] [address]- Care Team Providers Care Patient Appointment Coordinator Name Role Phone Schuyler Crane MD Primary Care Physician [phone] [facility] 12[facility]20 - 01/01/21 [facility] Adult [address] [place] [address]- Allergies, Adverse Reactions, Alerts Substance Reaction Severity [...] 5 Refills, Soft Stop, 04/03/20 16:18:00 EDT, [facility], 162.56, cm, 02/24/20 9:30:00 EDT, Height Start Date: 04/03/20 Status: Ordered amLODIPine 10 mg oral tablet 10 mg, 1, tablet, By Mouth, Daily, # 90 tablet, Refills 1, Tot. Refills 1, Soft Stop, 10/08/20 8:13:00 EST, Route to Pharmacy Electronically, [facility], 162.56, cm, 02/24/20 9:30:00 EDT, Height Start Date: 10/08/20 Status: Ordered ANTACID 500 MG CHEWABLE TAB ANTACID 500 MG CHEWABLE TAB, See Instructions, # 90 each, Refills 3, Tot. Refills 3, Maintenance, TAKE 1 TABLET PO TID FOR OSTEOPOROSIS. MAY CRUSH TABLET PER DR ROSA MARIA CRUZ [phone], 07/20/18 12:11:49EDT, Compound Start Date: 07/20/18 Status: Ordered Bisco-Lax 10 mg rectal suppository See Instructions, INSERT 1 SUPP (10MG) INTO RECTUM NEEDED IF MILK OF MAGNESIA INEFFECTIVE AFTER 8 HRS/BISAC- EVAC EQUIVALENT/ IF SUPPOSITORY INEFFECTIVE AF, # 7 supp, 11 Refills, Acute, [facility], 162.56, cm, 02/24/20 9:30:00 EDT, Height Start Date: 03/30/20 Status: Ordered Blood Pressure Monitor See Instructions, 1, 0, 0, 06/11/07 11:11:37, PRN, HTN, ADS OPPTHS, [facility] [id number] [place] [address] Start Date: 06/11/07 Status: Ordered calcium carbonate 500 mg (200 mg elemental calcium) oral tablet, chewable 500 mg, 1, tablet, By Mouth, 3 times a day, PER DR CRANE, # 90 tablet, Refills 3, Tot. Refills 3, Maintenance, 12/03/20 14:35:00 EST, Route to Pharmacy Electronically, [facility], 162.56, cm, 02/24/20 9:30:00 EDT, Height [...] Gm, 11 Refills, Maintenance, 08/07/20 11:11:00 EST, [facility], 30, USE 1/4 INCH OF GEL TO BRUSH TEETH DAILY IN THE EVENING / BRUSH T... Start Date: 08/07/20 Status: Ordered docusate sodium 100 mg oral capsule 1 capsule, By Mouth, 2 times a day, # 60 capsule, 5 Refills, Maintenance, 07/30/20 15:26:00 EST, [facility], 162.56, cm, 02/24/20 9:30:00 EDT, Height Start Date: 07/30/20 Status: Ordered EARWAX TREATMENT DROPS 6.5% EARWAX TREATMENT DROPS 6.5%, See Instructions, # 1 each, Refills 11, Tot. Refills 11, Maintenance, USE DIRECTED FAX [phone], 12/02/20 14:40:00 EST, [facility], 162.56, cm, 02/24/20 9:30:00 EDT, Height Start Date: 12/02/20 Status: Ordered Milk of Magnesia 8% oral suspension See Instructions, TAKE 2 TABLESPOONFULS (30 ML) BY MOUTH AT BEDTIME NEEDED FOR CONSTIPATION ON DAY 3 OF NO BM / SEE BISCOLAX SUPP ORDER 30ML=2,400MG, # 300 mL, 5 Refills, Acute, [facility], 162.56, cm, 02/24/20 9:30:00 EDT, Height Start Date: 2/5/21 Status: Ordered MILLITRIUM TABLET See Instructions, 30, 11, 11, 06/20/08 13:07:29, TAKE 1 TABLET BY MOUTH DAILY (VITAMIN), [address] [address], Constant Indicator, MILLITRIUM TABLET Start Date: 06/20/08 [...] bid prn nasal dryness PER DAWIT STOREY MUSHROOM SPAWN MAKER-C FAX [phone], 11/02/18 14:15:30 EST, Compound Start Date: 11/02/18 Status: Ordered Ocuflox 0.3% solution 2 drops, Eyes, Both, 4 times a day, # 10 mL, 0 Refills, Maintenance, 01/10/17 14:21:09, Ophth Solution, 2 drops Eyes, Both 4 times a day Start Date: 01/10/17 Status: Ordered Polysporin 500 u-35033 u/gm ointment See Instructions, APPLY A THIN LAYER TOPICALLY TWICE DAILY NEEDED TO RED, IRRITATED SKIN X 7 DAYS / SEE ANCILLARY ORDERS (BACITRACIN-POLYMYXIN OINTMENT), # 28.3 Gm, 5 Refills, Acute, [facility], 7, APPLY A THIN LAYER TOPICALLY TWICE DAILY N... Start Date: 03/30/20 Status: Ordered Polysporin 500 u-88618 u/gm ointment See Instructions, APPLY A THIN [...] tablet, 1 Refills, Maintenance, 09/08/20 10:55:00 EST, [facility], 162.56, cm, 02/24/20 9:30:00 EDT, Height [...] MG Q6H PRN PER DR CRANE FAX [phone], 02/01/19 9:46:36 EDT, Compound Start Date: 02/01/19 Status: Ordered Suphedrin 30 mg oral tablet See Instructions, TAKE 1 TAB (30 MG) BY MOUTH EVERY 6 HRS NEEDED FOR NASAL CONGESTION/ SEE ANCILLARY ORDERS (SUDOGEST EQUIVALENT), # 30 tablet, 11 Refills, Acute, [facility], 162.56, cm, 02/24/20 9:30:00 EDT, Height Start Date: 05/22/20 Status: Ordered THERA CAPLETS THERA CAPLETS, See Instructions, # 30 each, Refills 5, Tot. Refills 5, Maintenance, TAKE ONE CAPLETBY MOUTH QD PER DR CRANE FAX [phone], 10/08/20 11:48:00 EST, [facility], 162.56, cm, 02/24/20 9:30:00 EDT, Height Start Date: 10/08/20 Status: Ordered Tinactin 1% spray 1 sprays, Topically, 2 times a day, # 120 mL, 1 Refills, Maintenance, 12/01/20 8:15:00 EST, [place], [facility], 1 sprays Topically 2 times a day, 162.56, cm, 02/24/20 9:30:00 EDT, Height Start Date: 12/01/20 Status: Ordered TUSSIN DM TUSSIN DM, See Instructions, # 420 mL, Refills 1, Tot. Refills 1, Maintenance, 10 ML PO Q4H PRN FORCOUGH AT BEDTIME PER DR CRANE FAX [phone], 05/22/20 8:48:00 EDT, [facility], 162.56, cm, 02/24/20 9:30:00 EDT, Height Start Date: 05/22/20 Status: Ordered Tylenol 325 mg oral tablet 650 mg, 2, tablet, By Mouth, Every 4 hours, PER DR CRANE, # 168 tablet, Refills 5, Tot. Refills 5, Maintenance, 10/04/19 10:27:00 EST, Route to Pharmacy Electronically, [facility], 162.56, cm, 02/12/19 10:36:00 EDT, Height [...] Active Underweight(Confirmed) Active Vitamin D deficiency(Confirmed) Active 94567; repeat 2020 2colo 2005 nl, repeat 2015 3Colonoscopy 2016 positive polyp, repeat 2020. 4colo 2015 Social History Social History Type Response Smoking Status Never smoker entered on: 02/01/16 Sex
--- OUTSIDE RECORDS SUMMARY | 2024-04-02 09:41 | XMS_ITS | Continuity of Care Document ---
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 Adult [address] [place] [address]- Allergies, Adverse Reactions, Alerts Substance Reaction Severity [...] Adult (oldterm) 08/25/04 G cristy 1Result Comment: [facility]# [id number] 2Result Comment: [10/28/2016] pharmacy 3Admin Note: given [...] 10/14/22 8:03:00 EST, Route to Pharmacy Electronically, [facility], 162.56, cm, 07/04/22 8:33:00 EDT, Height Start Date: 10/14/22 Status: Ordered All Day Allergy 10 mg oral tablet See Instructions, TAKE 1 TABLET (10 MG) BY MOUTH DAILY IN THE AM FOR SEASONAL ALLERGIES FROM DECEMBER THROUGH JUNE (START 12/24 / END 07/25) SEE ANCILLARY ORDERS, # 30 tablet, 2 Refills, Maintenance, 07/22/22 15:15:00 EDT, [facility], 162.56, cm, 1... Start Date: 07/22/22 Status: Ordered amLODIPine 10 mg oral tablet See Instructions, TAKE 1 TABLET (10 MG) BY MOUTH DAILY IN AM FOR HYPERTENSION, # 30 tablet, 5 Refills, 09/29/22 11:37:00 EST, [facility], 162.56, cm, 07/04/22 8:33:00 EDT, Height Start Date: 09/29/22 Status: Ordered ANTACID 500 MG CHEWABLE TAB ANTACID 500 MG CHEWABLE TAB, See Instructions, # 90 each, Refills 3, Tot. Refills 3, Maintenance, TAKE 1 TABLET PO TID FOR OSTEOPOROSIS. MAY CRUSH TABLET PER DR CRANE FX [phone], 07/20/18 12:11:49EDT, Compound Start Date: 07/20/18 Status: Ordered benzonatate 100 mg oral capsule 1 capsule, By Mouth, 3 times a day, PRN NEEDED FOR COUGH / IF NO IMPROVEMENT IN 3 DAYS NOTIFY MD/ IC, JAGRUTI, # 21 capsule, 0 Refills, [facility], 162.56, cm, 12/06/21 13:34:00 EDT, Height Start Date: 02/25/22 Status: Ordered bisacodyl 10 mg rectal suppository See Instructions, INSERT 1 SUPP (10MG) INTO RECTUM NEEDED IF MILK OF MAGNESIA INEFFECTIVE AFTER 8 HRS/BISAC- EVAC EQUIVALENT/ IF SUPPOSITORY INEFFECTIVE AFTER 4 HRS CALL MD, # 7 supp, 11 Refills, Acute, [facility], 162.56, cm, 02/25/21 9:29:00... Start Date: 04/15/21 Status: Ordered Blood Pressure Monitor See Instructions, 1, 0, 0, 06/11/07 11:11:37, PRN, HTN, ADS OPPTHS, [facility] [id number] [place] [address] Start Date: 06/11/07 Status: Ordered calcium carbonate [...] mL, 11 Refills, Maintenance, 08/21/22 7:49:00 EST, [facility], 30, INSTILL 4 DROPS INTO EACH [...] capsule, 5 Refills, Maintenance, 10/20/22 6:09:00 EST, [facility], 162.56, cm, 07/04/22 8:33:00 EDT, Height Start Date: 10/20/22 Status: Ordered EARWAX TREATMENT DROPS 6.5% EARWAX TREATMENT DROPS 6.5%, See Instructions, # 1 each, Refills 11, Tot. Refills 11, Maintenance, USE DIRECTED FAX [phone], 12/02/20 14:40:00 EST, [facility], 162.56, cm, 02/24/20 9:30:00 EDT, Height Start Date: 12/02/20 Status: Ordered fluoride 1.1% topical gel See Instructions, USE 1/4 INCH OF GEL TO BRUSH TEETH DAILY IN THE EVENING / BRUSH THOROUGHLY ALONG GUMLINE IC: DENTAGEL, # 56 Gm, 11 Refills, [facility], 30, USE 1/4 INCH OF GEL TO BRUSH TEETH DAILY IN THE EVENING / BRUSH THOROUGHLY ALONG GUMLINE... Start Date: 01/28/22 Status: Ordered Carolyn-jag 8.6 mg oral tablet 1 tablet, By Mouth, Daily in PM, FOR CONSTIPATION / SEE MILK OF MAG ORDERS / IC: SENNA 8.6 MG, # 15tablet, 6 Refills, Maintenance, 10/14/22 8:03:00 EST, [facility], 162.56, cm, 07/04/22 8:33:00EDT, Height Start [...] 30ML=2,400MG, # 300 mL, 5 Refills, Acute, [facility], 162.56, cm, 02/24/20 9:30:00 EDT, Height Start Date: 10/30/20 Status: Ordered MILLITRIUM TABLET See Instructions, 30, 11, 11, 06/20/08 13:07:29, TAKE 1 TABLET BY MOUTH DAILY (VITAMIN), [facility] [address] [place] [address], Constant Indicator, MILLITRIUM TABLET Start Date: 06/20/08 [...] bid prn nasal dryness PER DAWIT STORE[employer]LINE PROGRAM COORDINATOR-C FAX [phone], 11/02/18 14:15:30 EST, Compound Start Date: 11/02/18 Status: Ordered Ocuflox 0.3% solution 2 drops, Eyes, Both, 4 times a day, # 10 mL, 0 Refills, Maintenance, 01/10/17 14:21:09, Ophth Solution, 2 drops Eyes, Both 4 times a day Start Date: 01/10/17 Status: Ordered Polysporin 500 u-77604 u/gm ointment See Instructions, APPLY A THIN LAYER TOPICALLY TWICE DAILY NEEDED TO RED, IRRITATED SKIN X 7 DAYS / SEE ANCILLARY ORDERS (BACITRACIN-POLYMYXIN OINTMENT), # 28.3 Gm, 5 Refills, Maintenance, 04/14/21 14:39:00 EDT, [facility], 7, APPLY A THIN LAY... Start Date: 04/14/21 Status: Ordered pravastatin 40 mg oral tablet See Instructions, TAKE 1 TABLET (40 MG) BY MOUTH DAILY IN PM FOR HYPERLIPIDEMIA, # 30 tablet, 5 Refills, Maintenance, 08/21/22 14:03:00 EST, [facility], 162.56, cm, 07/04/22 8:33:00 EDT, Height [...] (SUPHEDRIN EQUIVALENT), # 30 tablet, 11 Refills, [facility], 162.56, cm, 03/24/22 10:31:00 EDT, Height Start Date: 04/22/22 Status: Ordered SUDOGEST 30 MG TABLETS SUDOGEST 30 MG TABLETS, See Instructions, # 30 each, Refills 11, Tot. Refills 11, Maintenance, TAKE30 MG Q6H PRN PER DR CRANE FAX [phone], 02/01/19 9:46:36 EDT, Compound Start Date: 02/01/19 Status: Ordered THERA CAPLETS THERA CAPLETS, See Instructions, # 30 each, Refills 5, Tot. Refills 5, Maintenance, TAKE ONE CAPLETBY MOUTH QD PER DR CRANE FAX [phone], 10/08/20 11:48:00 EST, [facility], 162.56, cm, 02/24/20 9:30:00 EDT, Height Start Date: 10/08/20 Status: Ordered Thera oral tablet See Instructions, TAKE 1 TABLET BY MOUTH DAILY IN THE AM (VITAMIN), # 30 tablet, 5 Refills, Maintenance, 08/25/22 14:03:00 EST, [facility], 30, TAKE 1 TABLET BY MOUTH [...] mL, 1 Refills, Maintenance, 12/01/20 8:15:00 EST, [place], [facility], 1 sprays Topically 2 times a day, 162.56, cm, 02/24/20 9:30:00 EDT, Height Start Date: 12/01/20 Status: Ordered KAILYNIN KUSHAL FATIMA, See Instructions, # 420 mL, Refills 1, Tot. Refills 1, Maintenance, 10 ML PO Q4H PRN FORCOUGH AT BEDTIME PER DR CRANE FAX [phone], 05/22/20 8:48:00 EDT, [facility], 162.56, cm, 02/24/20 [...] Confirmed Active Vitamin D deficiency Confirmed Active 89984; repeat 2020 2colo 2006 nl, repeat 2015 3Colonoscopy 2016 positive polyp, repeat 2020. 4colo 2015 Social History Social History Type Response Smoking Status Never smoker entered on: 02/01/16 Sex Patient Care team information Care Team Personnel Name: Bisi HUSTON, Schuyler Pope Position: S Primary Care Physician Member Role: PCP Address: Address: [address] [place] [address]- Care Team Related Persons Name: ELLE ALMEIDA Address: home [address] [place] [address] Name: ZAK SHELL
--- OUTSIDE RECORDS SUMMARY | 2024-04-02 09:41 | XMS_ITS | Continuity of Care Document ---
Author Organization 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 Name Role Phone Schuyler Crane MD Primary Care Physician [facility]24 - 02/28/24 [facility] Adult [address] [place] [address]- Allergies, Adverse Reactions, Alerts Substance Reaction Severity [...] 08/25/04 Vishal muniz 1Result Comment: Td - [facility]# [id number] 2Result Comment: PCV23 - [facility]# [id number] 3Result Comment: [facility]# [id number] 4Result Comment: [10/28/2016] pharmacy 5Admin Note: given [...] 10/14/22 8:03:00 EST, Route to Pharmacy Electronically, [facility], 162.56, cm, 07/04/22 8:33:00 EDT, Height Start Date: 10/14/22 Status: Ordered acetaminophen 325 mg oral tablet 2, tablet, By Mouth, 2 times a day, PRN, # 20 tablet, Refills 0, Tot. Refills 0, Maintenance, NEEDED, 12/12/23 11:09:00 EDT, Route to Pharmacy Electronically, [facility], 162.56, cm, 12/11/2409:47:00 EDT, Height Start Date: 12/12/23 Stop Date: 12/17/23 Status: Ordered All Day Allergy 10 mg oral tablet 1 tablet, By Mouth, Daily in AM, FOR SEASONAL ALLERGIES FROM DECEMBER THROUGH JUNE (START 12/24 / ) SEE ANCILLARY ORDERS., # 30 tablet, 11 Refills, Maintenance, 12/21/23 7:45:00 EDT, [facility], 162.56, cm, 12/12/23 10:47:00 EDT, Height Start Date: 12/21/23 Status: Ordered amLODIPine 10 mg oral tablet 1 tablet, By Mouth, Daily in AM, FOR HYPERTENSION., # 30 tablet, 5 Refills, Maintenance, 10/25/23 0:22:00 EST, [facility], 162.56, cm, 10/03/23 9:00:00 EST, Height Start Date: 10/25/23 Status: Ordered ANTACID 500 MG CHEWABLE TAB ANTACID 500 MG CHEWABLE TAB, See Instructions, # 90 each, Refills 3, Tot. Refills 3, Maintenance, TAKE 1 TABLET PO TID FOR OSTEOPOROSIS. MAY CRUSH TABLET PER DR ROSA MARIA CRUZ [phone], 07/20/18 12:11:49EDT, Compound Start Date: 07/20/18 Status: Ordered benzonatate 100 mg oral capsule 1 capsule, By Mouth, 3 times a day, PRN NEEDED FOR COUGH / IF NO IMPROVEMENT IN 3 DAYS NOTIFY MD/ IC, JAGRUTI, # 21 capsule, 0 Refills, Maintenance, 10/05/23 12:01:00 EST, [facility], 162.56, cm, 10/03/23 9:00:00 EST, Height Start Date: 10/05/23 Status: Ordered bisacodyl 10 mg rectal suppository See Instructions, INSERT 1 SUPP (10MG) INTO RECTUM NEEDED IF MILK OF MAGNESIA INEFFECTIVE AFTER 8 HRS/BISAC- EVAC EQUIVALENT/ IF SUPPOSITORY INEFFECTIVE AFTER 4 HRS CALL MD, # 7 supp, 11 Refills, Acute, [facility], 162.56, cm, 02/25/21 9:29:00... Start Date: 04/15/21 Status: Ordered Blood Pressure Monitor See Instructions, 1, 0, 0, 06/11/07 11:11:37, PRN, HTN, ADS OPPTHS, [facility] [id number] [place] [address] Start Date: 06/11/07 Status: Ordered calcium carbonate 500 mg (200 mg elemental calcium) oral tablet, chewable 1, tablet, By Mouth, 3 times a day, CRUSH. IC: CALCIUM CARBONATE, # 90 tablet, Refills 5, Maintenance, 10/02/23 8:50:00 EST, Route to Pharmacy Electronically, [facility], 162.56, cm, 09/19/23 10:28:00 EST, Height Start Date: 10/02/23 Status: Ordered carbamide peroxide 6.5% otic solution See Instructions, INSTILL 4 DROPS INTO EACH EAR TWICE DAILY FOR 5 DAYS EACH MONTH / IC: CARBAMIDE PEROXIDE (EAR DROPS 6.5%), # 15 mL, 11 Refills, Maintenance, 09/01/23 9:17:00 EST, [facility], 30, INSTILL 4 DROPS INTO EACH [...] capsule, 5 Refills, Maintenance, 11/23/23 20:00:00 EST, [facility], 162.56, cm, 10/03/23 9:00:00 EST, Height Start Date: 11/23/23 Status: Ordered EARWAX TREATMENT DROPS 6.5% EARWAX TREATMENT DROPS 6.5%, See Instructions, # 1 each, Refills 11, Tot. Refills 11, Maintenance, USE DIRECTED FAX [phone], 12/02/20 14:40:00 EST, [facility], 162.56, cm, 02/24/20 9:30:00 EDT, Height Start Date: 12/02/20 Status: Ordered fluoride 1.1% topical gel See Instructions, USE 1/4 INCH OF GEL TO BRUSH TEETH DAILY IN THE EVENING / BRUSH THOROUGHLY ALONG GUMLINE IC: DENTAGEL, # 56 Gm, 11 Refills, Maintenance, 09/21/23 16:44:00 EST, [facility], 30, USE 1/4 INCH OF GEL TO BRUSH TEETH DAILY IN THE EVEN... Start Date: 09/21/23 Status: Ordered Carolyn-jag 8.6 mg oral tablet 1 tablet, By Mouth, Daily in PM, FOR CONSTIPATION / SEE MILK OF MAG ORDERS / IC: SENNA 8.6 MG, # 15tablet, 6 Refills, Maintenance, 10/14/22 8:03:00 EST, [facility], 162.56, cm, 07/04/22 8:33:00EDT, Height Start Date: 10/14/22 Status: Ordered Hospital Bed See Instructions, # 1 each, Refills 0, Tot. Refills 0, Maintenance, [facility] DX: Left hip fracture, seizure dis, impulse control disorder, atypical autism. Duration ongoing NPI#[id number] Height: 5'6 Weight: 137lbs, 03/22/23 13:55:... Start Date: 03/22/23 Status: Ordered ibuprofen 600 mg oral tablet 600 mg, 1, tablet, By Mouth, Every 8 hours, PRN for pain, # 30 tablet, Refills 0, Tot. Refills 0, Maintenance, 02/08/24 12:44:00 EDT, Route to Pharmacy Electronically, [facility], Partial fill upon patient request if the prescription is for a adeline... Start Date: 02/08/24 Status: Ordered Milk of Magnesia 8% oral suspension See Instructions, TAKE 2 TABLESPOONFULS (30 ML) BY MOUTH AT BEDTIME NEEDED FOR CONSTIPATION ON DAY 3 OF NO BM / SEE BISCOLAX SUPP ORDER 30ML=2,400MG, # 300 mL, 5 Refills, Acute, [facility], 162.56, cm, 02/24/20 9:30:00 EDT, Height Start Date: 10/30/20 Status: Ordered MILLITRIUM TABLET See Instructions, 30, 11, 11, 06/20/08 13:07:29, TAKE 1 TABLET BY MOUTH DAILY (VITAMIN), [facility] [address] [place] [address], Constant Indicator, MILLITRIUM TABLET Start Date: 06/20/08 [...] tablet, 0 Refills, Maintenance, 10/03/23 8:50:00 EST, [facility], Partial fill upon patient request if the prescription... Start Date: 10/03/23 Status: Ordered Polysporin 500 u-67353 u/gm ointment See Instructions, APPLY A THIN LAYER TOPICALLY TWICE DAILY NEEDED TO RED, IRRITATED SKIN X 7 DAYS / SEE ANCILLARY ORDERS (BACITRACIN-POLYMYXIN OINTMENT), # 28.3 Gm, 5 Refills, Maintenance, 04/18/23 8:59:00 EDT, [facility], 7, APPLY A THIN LAYE... Start Date: 04/18/23 Status: Ordered pravastatin 40 mg oral tablet 1 tablet, By Mouth, Daily, IN PM FOR HYPERLIPIDEMIA., # 30 tablet, 5 Refills, Maintenance, 248:50:00 EST, [facility], 162.56, cm, 09/19/23 10:28:00 EST, Height Start Date: 10/02/23 Status: Ordered Profola oral tablet 1 tablet, By Mouth, Daily, # 30 tablet, 11 Refills, Maintenance, 05/19/23 10:41:00 EDT, [facility], Partial fill upon patient request if [...] tablet, 11 Refills, Maintenance, 10/26/23 8:49:00 EST, [facility], 162.56, cm, 10/03/23 9:00:00 EST, Height Start Date: 10/26/23 Status: Ordered SUDOGEST 30 MG TABLETS SUDOGEST 30 MG TABLETS, See Instructions, # 30 each, Refills 11, Tot. Refills 11, Maintenance, TAKE30 MG Q6H PRN PER DR CRANE FAX [phone], 02/01/19 9:46:36 EDT, Compound Start Date: 02/01/19 Status: Ordered Thera oral tablet 1 tablet, By Mouth, Daily in AM, VITAMIN., # 30 tablet, 5 Refills, Maintenance, 10/25/23 10:03:00 EST, [facility], 30, TAKE 1 TABLET BY MOUTH [...] mL, 1 Refills, Maintenance, 12/01/20 8:15:00 EST, [place], [facility], 1 sprays Topically 2 times a day, 162.56, cm, 02/24/20 9:30:00 EDT, Height Start Date: 12/01/20 Status: Ordered KAILYNIN KUSHAL FATIMA, See Instructions, # 420 mL, Refills 1, Tot. Refills 1, Maintenance, 10 ML PO Q4H PRN FORCOUGH AT BEDTIME PER DR CRANE FAX [phone], 05/22/20 8:48:00 EDT, Compound, 162.56, cm, 02/24/20 [...] Confirmed Active Vitamin D deficiency Confirmed Active 93201; repeat 2020 2colo 2005 nl, repeat 2015 3Colonoscopy 2016 positive polyp, repeat 2020. 4colo 2015 Social History Social History Type Response Smoking Status Never smoker entered on: 02/01/16 Sex Patient Care team information Care Team Personnel Name: Rosa Maria HUSTON, Schuyler Pope Position: [facility] Physician - Primary Care Member Role: PCP Address: Address: [address] [place] [address]- Care Team Related Persons Name: ELLE ALMEIDA Address: home [address] [place] [address] Name: ZAK SHELL
--- OUTSIDE RECORDS SUMMARY | 2024-04-02 09:42 | XMS_ITS | Continuity of Care Document ---
Author Organization [facility] Jyoti Todd lt Address [address] [place] [address]- Care Team Providers Care Map Mounter Name Role Phone Schuyler Crane MD Primary Care Physician Encounter [facility] Date(s): 07/18/23 - 08/17/23 [facility] Adult [address] [place] [address]- Allergies, Adverse Reactions, Alerts Substance Reaction Severity [...] 08/25/04 G cristy 1Result Comment: Td - [facility]# [id number] 2Result Comment: PCV23 - [facility]# [id number] 3Result Comment: [facility]# [id number] 4Result Comment: [10/28/2016] pharmacy 5Admin Note: given [...] 10/14/22 8:03:00 EST, Route to Pharmacy Electronically, [facility], 162.56, cm, 07/04/22 8:33:00 EDT, Height Start Date: 10/14/22 Status: Ordered All Day Allergy 10 mg oral tablet See Instructions, TAKE 1 TABLET (10 MG) BY MOUTH DAILY IN THE AM FOR SEASONAL ALLERGIES FROM DECEMBER THROUGH JUNE (START 12/24 / END 07/25) SEE ANCILLARY ORDERS, # 30 tablet, 2 Refills, Maintenance, 04/13/23 14:33:00 EDT, [facility], 162.56, cm, 0... Start Date: 04/13/23 Status: Ordered amLODIPine 10 mg oral tablet 1 tablet, By Mouth, Daily in AM, FOR HYPERTENSION., # 30 tablet, 5 Refills, Maintenance, 04/19/23 23:11:00 EDT, [facility], 162.56, cm, 04/10/23 7:35:00 EDT, Height Start Date: 04/19/23 Status: Ordered ANTACID 500 MG CHEWABLE TAB ANTACID 500 MG CHEWABLE TAB, See Instructions, # 90 each, Refills 3, Tot. Refills 3, Maintenance, TAKE 1 TABLET PO TID FOR OSTEOPOROSIS. MAY CRUSH TABLET PER DR ROSA MARIA CRUZ [phone], 07/20/18 12:11:49EDT, Compound Start Date: 07/20/18 Status: Ordered benzonatate 100 mg oral capsule 1 capsule, By Mouth, 3 times a day, PRN NEEDED FOR COUGH / IF NO IMPROVEMENT IN 3 DAYS NOTIFY MD/ IC, JAGRUTI, # 21 capsule, 0 Refills, Maintenance, 02/17/23 8:57:00 EDT, [facility], 162.56, cm, 07/04/22 8:33:00 EDT, Height Start Date: 02/17/23 Status: Ordered bisacodyl 10 mg rectal suppository See Instructions, INSERT 1 SUPP (10MG) INTO RECTUM NEEDED IF MILK OF MAGNESIA INEFFECTIVE AFTER 8 HRS/BISAC- EVAC EQUIVALENT/ IF SUPPOSITORY INEFFECTIVE AFTER 4 HRS CALL MD, # 7 supp, 11 Refills, Acute, [facility], 162.56, cm, 02/25/21 9:29:00... Start Date: 04/15/21 Status: Ordered Blood Pressure Monitor See Instructions, 1, 0, 0, 06/11/07 11:11:37, PRN, HTN, ADS OPPTHS, [facility] [place] [address] Start Date: 06/11/07 Status: Ordered calcium carbonate 500 mg (200 mg elemental calcium) oral tablet, chewable 1, tablet, By Mouth, 3 times a day, CRUSH. IC: CALCIUM CARBONATE, # 90 tablet, Refills 5, Maintenance, 02/17/23 8:57:00 EDT, Route to Pharmacy Electronically, [facility], 162.56, cm, 07/04/22 8:33:00 EDT, Height Start Date: 02/17/23 Status: Ordered carbamide peroxide 6.5% otic solution See Instructions, INSTILL 4 DROPS INTO EACH EAR TWICE DAILY FOR 5 DAYS EACH MONTH / IC: CARBAMIDE PEROXIDE (EAR DROPS 6.5%), # 15 mL, 11 Refills, Maintenance, 08/21/22 7:49:00 EST, [facility], 30, INSTILL 4 DROPS INTO EACH [...] capsule, 5 Refills, Maintenance, 06/06/23 14:01:00 EDT, [facility], 162.56, cm, 05/15/23 9:41:00 EDT, Height Start Date: 06/06/23 Status: Ordered EARWAX TREATMENT DROPS 6.5% EARWAX TREATMENT DROPS 6.5%, See Instructions, # 1 each, Refills 11, Tot. Refills 11, Maintenance, USE DIRECTED FAX [phone], 12/02/20 14:40:00 EST, [facility];, [facility], 162.56, cm, 02/24/20 9:30:00 EDT, Height Start Date: 12/02/20 Status: Ordered fluoride 1.1% topical gel See Instructions, USE 1/4 INCH OF GEL TO BRUSH TEETH DAILY IN THE EVENING / BRUSH THOROUGHLY ALONG GUMLINE IC: DENTAGEL, # 56 Gm, 11 Refills, [facility], 30, USE 1/4 INCH OF GEL TO BRUSH TEETH DAILY IN THE EVENING / BRUSH THOROUGHLY ALONG GUMLINE... Start Date: 01/28/22 Status: Ordered Carolyn-jag 8.6 mg oral tablet 1 tablet, By Mouth, Daily in PM, FOR CONSTIPATION / SEE MILK OF MAG ORDERS / IC: SENNA 8.6 MG, # 15tablet, 6 Refills, Maintenance, 10/14/22 8:03:00 EST, [facility], 162.56, cm, 07/04/22 8:33:00EDT, Height Start Date: 10/14/22 Status: Ordered Hospital Bed See Instructions, # 1 each, Refills 0, Tot. Refills 0, Maintenance, [facility] DX: Left hip fracture, seizure dis, impulse control disorder, atypical autism. Duration ongoing NPI#[id number] Height: 5'6 Weight: 137lbs, 03/22/23 13:55:... Start Date: 03/22/23 Status: Ordered Milk of Magnesia 8% oral suspension See Instructions, TAKE 2 TABLESPOONFULS (30 ML) BY MOUTH AT BEDTIME NEEDED FOR CONSTIPATION ON DAY 3 OF NO BM / SEE BISCOLAX SUPP ORDER 30ML=2,400MG, # 300 mL, 5 Refills, Acute, [facility], 162.56, cm, 02/24/20 9:30:00 EDT, Height Start Date: 10/30/20 Status: Ordered MILLITRIUM TABLET See Instructions, 30, 11, 11, 06/20/08 13:07:29, TAKE 1 TABLET BY MOUTH DAILY (VITAMIN), [address] [address], Constant Indicator, MILLITRIUM TABLET Start Date: 06/20/08 Status: Ordered OCEAN SALINE NASAL MIST OCEAN SALINE NASAL MIST, See Instructions, # 1 each, Refills 2, Tot. Refills 2, Maintenance, use bid prn nasal dryness, 11/06/18 9:57:36 EST, Compound Start Date: 11/06/18 Status: Ordered Polysporin 500 u-55422 u/gm ointment See Instructions, APPLY A THIN LAYER TOPICALLY TWICE DAILY NEEDED TO RED, IRRITATED SKIN X 7 DAYS / SEE ANCILLARY ORDERS (BACITRACIN-POLYMYXIN OINTMENT), # 28.3 Gm, 5 Refills, Maintenance, 04/18/23 8:59:00 EDT, [facility], 7, APPLY A THIN LAYE... Start Date: 04/18/23 Status: Ordered pravastatin 40 mg oral tablet See Instructions, TAKE 1 TABLET (40 MG) BY MOUTH DAILY IN PM FOR HYPERLIPIDEMIA, # 30 tablet, 5 Refills, Maintenance, 02/17/23 13:00:00 EDT, [facility], 162.56, cm, 07/04/22 8:33:00 EDT, Height Start Date: 02/17/23 Status: Ordered Profola oral tablet 1 tablet, By Mouth, Daily, # 30 tablet, 11 Refills, Maintenance, 05/19/23 10:41:00 EDT, [facility], Partial fill upon patient request if [...] (SUPHEDRIN EQUIVALENT), # 30 tablet, 11 Refills, [facility], 162.56, cm, 03/24/22 10:31:00 EDT, Height Start Date: 04/22/22 Status: Ordered SUDOGEST 30 MG TABLETS SUDOGEST 30 MG TABLETS, See Instructions, # 30 each, Refills 11, Tot. Refills 11, Maintenance, TAKE30 MG Q6H PRN PER DR CRANE FAX [phone], 02/01/19 9:46:36 EDT, Compound Start Date: 02/01/19 [...] mL, 1 Refills, Maintenance, 12/01/20 8:15:00 EST, [place], 1 sprays Topically 2 times a day, 162.56, cm, 02/24/20 9:30:00 EDT, Height Start Date: 12/01/20 Status: Ordered TUSSIN DM TUSSIN DM, See Instructions, # 420 mL, Refills 1, Tot. Refills 1, Maintenance, 10 ML PO Q4H PRN FORCOUGH AT BEDTIME PER DR CRANE FAX [phone], 05/22/20 8:48:00 EDT, Compound, 162.56, cm, 02/24/20 [...] Confirmed Active Vitamin D deficiency Confirmed Active 00330; repeat 2020 2colo 2005 nl, repeat 2015 3Colonoscopy 2016 positive polyp, repeat 2020. 4colo 2015 Social History Social History Type Response Smoking Status Never smoker entered on: 02/01/16 Sex Patient Care team information Care Team Personnel Name: Schuyler Crane MD Position: S Physician - Primary Care Member Role: PCP Address: Address: [address] [place] [address] [place] [address]- Care Team Related Persons Name: ELLE ALMEIDA Address: home [address] [place], [place] [address] [address] Name: ZAK SHELL
--- OUTSIDE RECORDS SUMMARY | 2024-04-02 09:42 | XMS_ITS | Continuity of Care Document ---
Author Organization [facility] Salvatore Todd lt Address [address] [place] [address]- Care Team Providers Care Knowledge Architect Name Role Phone Schuyler Crane MD Primary Care Physician Encounter [facility] Date(s): 07/04/22 - 07/11/22 [facility] Adult [address] [place] [address]- Encounter Diagnosis Fall in home(Discharge Diagnosis) - 07/04/22 Attending Physician: Not on Staff, Attending MD Allergies, Adverse Reactions, Alerts Substance Reaction [...] Adult (oldterm) 08/25/04 Vishal muniz 1Result Comment: [facility]# [id number] 2Result Comment: [10/28/2016] pharmacy 3Admin Note: given [...] Replace Required Details, Route to Pharmacy Electronically, [facility], 162.56, cm, 02/25/21 9:29:00 EDT, He... Start Date: 08/31/21 Status: Ordered amLODIPine 10 mg oral tablet See Instructions, TAKE 1 TABLET (10 MG) BY MOUTH DAILY IN AM FOR HYPERTENSION, # 30 tablet, 5 Refills, [facility], 162.56, cm, 03/24/22 10:31:00 EDT, Height Start Date: 04/01/22 Status: Ordered ANTACID 500 MG CHEWABLE TAB ANTACID 500 MG CHEWABLE TAB, See Instructions, # 90 each, Refills 3, Tot. Refills 3, Maintenance, TAKE 1 TABLET PO TID FOR OSTEOPOROSIS. MAY CRUSH TABLET PER DR ROSA MARIA CRUZ [phone], 07/20/18 12:11:49EDT, Compound Start Date: 07/20/18 Status: Ordered benzonatate 100 mg oral capsule 1 capsule, By Mouth, 3 times a day, PRN NEEDED FOR COUGH / IF NO IMPROVEMENT IN 3 DAYS NOTIFY MD/ IC, JAGRUTI, # 21 capsule, 0 Refills, [facility], 162.56, cm, 12/06/21 13:34:00 EDT, Height Start Date: 02/25/22 Status: Ordered bisacodyl 10 mg rectal suppository See Instructions, INSERT 1 SUPP (10MG) INTO RECTUM NEEDED IF MILK OF MAGNESIA INEFFECTIVE AFTER 8 HRS/BISAC- EVAC EQUIVALENT/ IF SUPPOSITORY INEFFECTIVE AFTER 4 HRS CALL MD, # 7 supp, 11 Refills, Acute, [facility], 162.56, cm, 02/25/21 9:29:00... Start Date: 04/15/21 Status: Ordered Blood Pressure Monitor See Instructions, 1, 0, 0, 06/11/07 11:11:37, PRN, HTN, [place], [place] [address] Start Date: 06/11/07 Status: Ordered calcium carbonate 500 mg (200 mg elemental calcium) oral tablet, chewable See Instructions, TAKE 1 TABLET (500 MG) BY MOUTH 3 TIMES A DAY FOR OSTEOPOROSIS MAY CRUSH TABLET IC: CALCIUM CARBONATE, # 90 tablet, Refills 5, Instructions Replace Required Details, Route to Pharmacy Electronically, [facility], 162.56, cm, 11/23... Start Date: 02/25/22 Status: Ordered cetirizine 10 mg oral tablet 1 tablet, By Mouth, Daily in AM, FOR SEASONAL ALLERGIES FROM DECEMBER THROUGH JUNE (START 12/24 / ) SEE ANCILLARY ORDERS., # 30 tablet, 5 Refills, [facility], 162.56, cm, 12/06/21 13:34:00 EDT, Height [...] 100 MG), # 60 capsule, 5 Refills, [facility], 162.56, cm, 12/06/21 13:34:00 EDT, Height Start Date: 01/13/22 Status: Ordered EARWAX TREATMENT DROPS 6.5% EARWAX TREATMENT DROPS 6.5%, See Instructions, # 1 each, Refills 11, Tot. Refills 11, Maintenance, USE DIRECTED FAX [phone], 12/02/20 14:40:00 EST, [facility];, Compound, 162.56, cm, [...] 30ML=2,400MG, # 300 mL, 5 Refills, Acute, [facility], 162.56, cm, 02/24/20 9:30:00 EDT, Height Start Date: 10/30/20 Status: Ordered MILLITRIUM TABLET See Instructions, 30, 11, 11, 06/20/08 13:07:29, TAKE 1 TABLET BY MOUTH DAILY (VITAMIN), [facility] [address] [place] [address], Constant Indicator, MILLITRIUM TABLET Start Date: 06/20/08 [...] bid prn nasal dryness PER DAWIT STOREY [employer]ATING EQUIPMENT TENDER-C FAX [phone], 11/02/18 14:15:30 EST, Compound Start Date: 11/02/18 Status: Ordered Ocuflox 0.3% solution 2 drops, Eyes, Both, 4 times a day, # 10 mL, 0 Refills, Maintenance, 01/10/17 14:21:09, Ophth Solution, 2 drops Eyes, Both 4 times a day Start Date: 01/10/17 Status: Ordered Polysporin 500 u-62109 u/gm ointment See Instructions, APPLY A THIN LAYER TOPICALLY TWICE DAILY NEEDED TO RED, IRRITATED SKIN X 7 DAYS / SEE ANCILLARY ORDERS (BACITRACIN-POLYMYXIN OINTMENT), # 28.3 Gm, 5 Refills, Maintenance, 04/14/21 14:39:00 EDT, [facility], 7, APPLY A THIN LAY... Start Date: 04/14/21 Status: Ordered pravastatin 40 mg oral tablet 1 tablet, By Mouth, Daily, IN PM FOR HYPERLIPIDEMIA., # 30 tablet, 5 Refills, [facility], 162.56, cm, 12/06/21 13:34:00 EDT, Height [...] (SUPHEDRIN EQUIVALENT), # 30 tablet, 11 Refills, [facility], 162.56, cm, 03/24/22 10:31:00 EDT, Height Start Date: 04/22/22 Status: Ordered SUDOGEST 30 MG TABLETS SUDOGEST 30 MG TABLETS, See Instructions, # 30 each, Refills 11, Tot. Refills 11, Maintenance, TAKE30 MG Q6H PRN PER DR CRANE FAX [phone], 02/01/19 9:46:36 EDT, Compound Start Date: 02/01/19 Status: Ordered THERA CAPLETS THERA CAPLETS, See Instructions, # 30 each, Refills 5, Tot. Refills 5, Maintenance, TAKE ONE CAPLETBY MOUTH QD PER DR CRANE FAX [phone], 10/08/20 11:48:00 EST, Compound, 162.56, cm, 02/24/20 9:30:00 EDT, Height Start Date: 10/08/20 Status: Ordered Thera oral tablet See Instructions, TAKE 1 TABLET BY MOUTH DAILY IN THE AM (VITAMIN), # 30 tablet, 5 Refills, [facility], 30, TAKE 1 TABLET BY MOUTH [...] mL, 1 Refills, Maintenance, 12/01/20 8:15:00 EST, [place], 1 sprays Topically 2 times a day, 162.56, cm, 02/24/20 9:30:00 EDT, Height Start Date: 12/01/20 Status: Ordered KAILYNIN DM KAILYNIN DM, See Instructions, # 420 mL, Refills 1, Tot. Refills 1, Maintenance, 10 ML PO Q4H PRN FORCOUGH AT BEDTIME PER DR CRANE FAX [phone], 05/22/20 8:48:00 EDT, Compound, 162.56, cm, 02/24/20 [...] Confirmed Active Vitamin D deficiency Confirmed Active 76285; repeat 2020 2colo 2005 nl, repeat 2015 3Colonoscopy 2016 positive polyp, repeat 2020. 4colo 2015 Diagnosis Diagnosis Type Effective Dates Health Status Cl inical Service Informant Fall in home Discharge Diagnosis 07/04/22 Vital Signs Most recent to oldest [Reference Range]: 1 Height 162.56 cm (07/04/22 8:33 AM) Weight 62.2 kg (07/04/22 8:33 AM) Oxygen Saturation [94-100 %] 100 % (07/04/22 8:33 AM) Body Mass Index [18.5-24.99 kg/m2] 23.54 kg/m2 (07/04/22 8:33 AM) Blood Pressure [90-138/55-84 mm Hg] 137/ 67mm Hg (07/04/22 8:33 AM) Blood pressure sites Arm, left (07/04/22 8:33 AM) Weight Obtained Via Standing scale (07/04/22 8:33 AM) Social History Social History Type Response Smoking Status Never smoker entered on: 02/01/16 Sex Patient Care team information Personnel Name: Rosa Maria HUSTON, Schuyler Pope Address: Address: [address] [place] [address]-
--- OUTSIDE RECORDS SUMMARY | 2024-04-02 09:42 | XMS_ITS | Continuity of Care Document ---
Author Organization [facility] Address [address] [place] [address]- Care Team Providers Care Product Inspection Supervisor Name Role Phone Schuyler Crane MD Primary Care Physician Encounter [facility] Date(s): 03/05/21 - 07/03/21 [facility] [address] [place], [place] [id number]- Attending Physician: Citlaly Diaz Admitting Physician: Citlaly Diaz Referring Physician: Schuyler Crane MD Allergies, Adverse [...] 04/01/21 15:49:00 EDT, Route to Pharmacy Electronically, [facility], 162.56, cm, 02/25/21 9:29:00 EDT, Height Start Date: 04/01/21 Status: Ordered ANTACID 500 MG CHEWABLE TAB ANTACID 500 MG CHEWABLE TAB, See Instructions, # 90 each, Refills 3, Tot. Refills 3, Maintenance, TAKE 1 TABLET PO TID FOR OSTEOPOROSIS. MAY CRUSH TABLET PER DR CRANE FX [phone], 07/20/18 12:11:49EDT, Compound Start Date: 07/20/18 Status: Ordered bisacodyl 10 mg rectal suppository See Instructions, INSERT 1 SUPP (10MG) INTO RECTUM NEEDED IF MILK OF MAGNESIA INEFFECTIVE AFTER 8 HRS/BISAC- EVAC EQUIVALENT/ IF SUPPOSITORY INEFFECTIVE AFTER 4 HRS CALL , # 7 supp, 11 Refills, Acute, [facility], 162.56, cm, 02/25/21 9:29:00... Start Date: 04/15/21 Status: Ordered Blood Pressure Monitor See Instructions, 1, 0, 0, 06/11/07 11:11:37, PRN, HTN, ADS OPPTHS, [id number] [place] [address] Start Date: 06/11/07 Status: Ordered calcium carbonate 500 mg (200 mg elemental calcium) oral tablet, chewable 500 mg, 1, tablet, By Mouth, 3 times a day, PER DR CRANE, # 90 tablet, Refills 5, Tot. Refills 5, Maintenance, 04/02/21 14:35:00 EDT, Route to Pharmacy Electronically, [facility], 162.56, cm, 02/25/21 9:29:00 EDT, Height Start Date: 04/02/21 Stop Date: 09/29/21 Status: Ordered cetirizine 10 mg oral tablet See Instructions, TAKE 1 TABLET (10 MG) BY MOUTH DAILY IN THE AM FOR SEASONAL ALLERGIES FROM DECEMBER THROUGH JUNE (START 12/24) SEE ANCILLARY ORDERS, # 30 tablet, 5 Refills, Maintenance, [facility], 162.56, cm, 02/25/21 9:29:00 EDT, He... Start Date: 02/25/21 Status: Ordered cetirizine 10 mg oral tablet 1 tablet, By Mouth, Daily in AM, FOR SEASONAL ALLERGIES FROM DECEMBER THROUGH JUNE (START 12/24) SEE ANCILLARY ORDERS., # 30 tablet, 5 Refills, Maintenance, 02/25/21 13:04:00 EDT, [facility], 162.56, cm, 02/25/21 9:29:00 EDT, Height [...] Gm, 11 Refills, Maintenance, 08/07/20 11:11:00 EST, [facility], 30, USE 1/4 INCH OF GEL TO BRUSH TEETH DAILY IN THE EVENING / BRUSH T... Start Date: 08/07/20 Status: Ordered docusate sodium 100 mg oral capsule 1 capsule, By Mouth, 2 times a day, # 60 capsule, 5 Refills, Maintenance, 01/28/21 15:23:00 EDT, [facility], 162.56, cm, 02/24/20 9:30:00 EDT, Height Start Date: 01/28/21 Status: Ordered EARWAX TREATMENT DROPS 6.5% EARWAX TREATMENT DROPS 6.5%, See Instructions, # 1 each, Refills 11, Tot. Refills 11, Maintenance, USE DIRECTED FAX [phone], 12/02/20 14:40:00 EST, [facility];, [facility], 162.56, cm, 02/24/20 9:30:00 EDT, Height Start Date: 12/02/20 Status: Ordered Milk of Magnesia 8% oral suspension See Instructions, TAKE 2 TABLESPOONFULS (30 ML) BY MOUTH AT BEDTIME NEEDED FOR CONSTIPATION ON DAY 3 OF NO BM / SEE BISCOLAX SUPP ORDER 30ML=2,400MG, # 300 mL, 5 Refills, Acute, [facility], 162.56, cm, 02/24/20 9:30:00 EDT, Height Start Date: 10/30/20 Status: Ordered MILLITRIUM TABLET See Instructions, 30, 11, 11, 06/20/08 13:07:29, TAKE 1 TABLET BY MOUTH DAILY (VITAMIN), [facility] [address] [place] [address], Constant Indicator, MILLITRIUM TABLET Start Date: 06/20/08 [...] bid prn nasal dryness PER DAWIT STOREY PROGRAM DIRECTOR-C FAX [phone], 11/02/18 14:15:30 EST, Compound Start Date: 11/02/18 Status: Ordered Ocuflox 0.3% solution 2 drops, Eyes, Both, 4 times a day, # 10 mL, 0 Refills, Maintenance, 01/10/17 14:21:09, Ophth Solution, 2 drops Eyes, Both 4 times a day Start Date: 01/10/17 Status: Ordered Polysporin 500 u-66012 u/gm ointment See Instructions, APPLY A THIN LAYER TOPICALLY TWICE DAILY NEEDED TO RED, IRRITATED SKIN X 7 DAYS / SEE ANCILLARY ORDERS (BACITRACIN-POLYMYXIN OINTMENT), # 28.3 Gm, 5 Refills, Maintenance, 04/14/21 14:39:00 EDT, [facility], 7, APPLY A THIN LAY... Start Date: 04/14/21 Status: Ordered pravastatin 40 mg oral tablet 1 tablet, By Mouth, Daily, IN PM FOR HYPERLIPIDEMIA., # 30 tablet, 5 Refills, Maintenance, 03/05/2111:55:00 EDT, [facility], 162.56, cm, 02/25/21 9:29:00 EDT, Height [...] MG Q6H PRN PER DR CRANE FAX [phone], 02/01/19 9:46:36 EDT, Compound Start Date: 02/01/19 Status: Ordered Suphedrin 30 mg oral tablet See Instructions, TAKE 1 TAB (30 MG) BY MOUTH EVERY 6 HRS NEEDED FOR NASAL CONGESTION/ SEE ANCILLARY ORDERS (SUDOGEST EQUIVALENT), # 30 tablet, 11 Refills, Acute, [facility], 162.56, cm, 02/24/20 9:30:00 EDT, Height Start Date: 05/22/20 Status: Ordered THERA CAPLETS THERA CAPLETS, See Instructions, # 30 each, Refills 5, Tot. Refills 5, Maintenance, TAKE ONE CAPLETBY MOUTH QD PER DR CRANE FAX [phone], 10/08/20 11:48:00 EST, [facility], 162.56, cm, 02/24/20 9:30:00 EDT, Height Start Date: 10/08/20 Status: Ordered Thera oral tablet 1 tablet, By Mouth, Daily in AM, VITAMIN., # 30 tablet, 5 Refills, Maintenance, 03/05/21 11:55:00 EDT, [facility], 30, TAKE 1 TABLET BY MOUTH DAILY IN THE AM (VITAMIN), 162.56, cm, 02/25/21 9:29:00 EDT, Height Start Date: 03/05/21 Status: Ordered Tinactin 1% spray 1 sprays, Topically, 2 times a day, # 120 mL, 1 Refills, Maintenance, 12/01/20 8:15:00 EST, [place], [facility], 1 sprays Topically 2 times a day, 162.56, cm, 02/24/20 9:30:00 EDT, Height Start Date: 12/01/20 Status: Ordered TUSSIN DM KIALYNIN DM, See Instructions, # 420 mL, Refills 1, Tot. Refills 1, Maintenance, 10 ML PO Q4H PRN FORCOUGH AT BEDTIME PER DR CRANE FAX [phone], 05/22/20 8:48:00 EDT, Compound, 162.56, cm, 02/24/20 9:30:00 EDT, Height Start Date: 05/22/20 Status: Ordered Tylenol 325 mg oral tablet 650 mg, 2, tablet, By Mouth, Every 4 hours, PER DR CRANE, # 168 tablet, Refills 5, Tot. Refills 5, Maintenance, 10/04/19 10:27:00 EST, Route to Pharmacy Electronically, [facility], 162.56, cm, 02/12/19 10:36:00 EDT, Height [...] Active Underweight(Confirmed) Active Vitamin D deficiency(Confirmed) Active 73647; repeat 2020 2colo 2006 nl, repeat 2015 3Colonoscopy 2016 positive polyp, repeat 2020. 4colo 2015 Social History Social History Type Response Smoking Status Never smoker entered on: 02/01/16 Sex
--- OUTSIDE RECORDS SUMMARY | 2024-04-02 09:42 | XMS_ITS | Continuity of Care Document ---
Author Organization [facility] Salvatore Todd lt Address [address] [place] [address]- Care Team Providers Care Core Drilling Supervisor Name Role Phone Schuyler Crane MD Primary Care Physician Encounter [facility] Date(s): 07/22/20 - 07/29/20 [facility] Adult [address] [place] [address]- [facility] Attending Physician: Schuyler Craen MD Allergies, Adverse Reactions, Alerts Substance Reaction [...] 5 Refills, Soft Stop, 04/03/20 16:18:00 EDT, [facility], 162.56, cm, 02/24/20 9:30:00 EDT, Height Start Date: 04/03/20 Status: Ordered amLODIPine 10 mg oral tablet 10 mg, 1, tablet, By Mouth, Daily, # 90 tablet, Refills 1, Tot. Refills 1, Soft Stop, 04/09/20 13:02:00 EDT, Route to Pharmacy Electronically, [facility], 162.56, cm, 02/24/20 9:30:00 EDT, Height Start Date: 04/09/20 Status: Ordered ANTACID 500 MG CHEWABLE TAB ANTACID 500 MG CHEWABLE TAB, See Instructions, # 90 each, Refills 3, Tot. Refills 3, Maintenance, TAKE 1 TABLET PO TID FOR OSTEOPOROSIS. JANUARY CRUSH TABLET PER DR CRANE FX [phone], 07/20/18 12:11:49EDT, Compound Start Date: 07/20/18 Status: Ordered Bisco-Lax 10 mg rectal suppository See Instructions, INSERT 1 SUPP (10MG) INTO RECTUM NEEDED IF MILK OF MAGNESIA INEFFECTIVE AFTER 8 HRS/BISAC- EVAC EQUIVALENT/ IF SUPPOSITORY INEFFECTIVE AF, # 7 supp, 11 Refills, Acute, [facility], 162.56, cm, 02/24/20 9:30:00 EDT, Height Start Date: 03/30/20 Status: Ordered Blood Pressure Monitor See Instructions, 1, 0, 0, 06/11/07 11:11:37, PRN, HTN, ADS OPPTHS, [facility] [id number] [place] [address] Start Date: 06/11/07 Status: Ordered calcium carbonate 500 mg (200 mg elemental calcium) oral tablet, chewable 500 mg, 1, tablet, By Mouth, 3 times a day, PER DR CRANE, # 90 tablet, Refills 11, Tot. Refills 11, Maintenance, 12/09/19 14:35:00 EDT, Route to Pharmacy Electronically, [facility], 162.56, cm, 02/12/19 10:36:00 EDT, Height [...] 02/06/20 12:14:00 EDT, Route to Pharmacy Electronically, [facility], 162.56, cm, 02/12/19 10:36:00 EDT, Height [...] Tot. Refills 11, Maintenance, USE DIRECTED FAX [phone], 10/01/19 11:14:00 EST, [facility];, Compound Start Date: [...] TAKE 1 TABLET BY MOUTH DAILY (VITAMIN), [facility] [address] [place] [address], Constant Indicator, MILLITRIUM TABLET Start Date: 06/20/08 [...] bid prn nasal dryness PER DAWIT STOREY NURSING UNIT MANAGER-C FAX [phone], 11/02/18 14:15:30 EST, Compound Start Date: 11/02/18 Status: Ordered Ocuflox 0.3% solution 2 drops, Eyes, Both, 4 times a day, # 10 mL, 0 Refills, Maintenance, 01/10/17 14:21:09, Ophth Solution, 2 drops Eyes, Both 4 times a day Start Date: 01/10/17 Status: Ordered Polysporin 500 u-38397 u/gm ointment See Instructions, APPLY A THIN LAYER TOPICALLY TWICE DAILY NEEDED TO RED, IRRITATED SKIN X 7 DAYS / SEE ANCILLARY ORDERS (BACITRACIN-POLYMYXIN OINTMENT), # 28.3 Gm, 5 Refills, Acute, [facility], 7, APPLY A THIN LAYER TOPICALLY TWICE DAILY N... Start Date: 03/30/20 Status: Ordered Polysporin 500 u-55021 u/gm ointment See Instructions, APPLY A THIN [...] tablet, 1 Refills, Maintenance, 03/12/20 12:59:00 EDT, [facility], 162.56, cm, 02/24/20 9:30:00 EDT, Height [...] MG Q6H PRN PER DR CRANE FAX [phone], 02/01/19 9:46:36 EDT, Compound Start Date: 02/01/19 Status: Ordered Suphedrin 30 mg oral tablet See Instructions, TAKE 1 TAB (30 MG) BY MOUTH EVERY 6 HRS NEEDED FOR NASAL CONGESTION/ SEE ANCILLARY ORDERS (SUDOGEST EQUIVALENT), # 30 tablet, 11 Refills, Acute, [facility], 162.56, cm, 02/24/20 9:30:00 EDT, Height Start Date: 05/22/20 Status: Ordered THERA CAPLETS THERA CAPLETS, See Instructions, # 30 each, Refills 5, Tot. Refills 5, Maintenance, TAKE ONE CAPLETBY MOUTH QD PER DR CRANE FAX [phone], 03/12/20 12:59:00 EDT, Compound, 162.56, cm, 02/24/20 9:30:00 EDT, Height Start Date: 03/12/20 Status: Ordered Tinactin 1% spray 1 sprays, Topically, 2 times a day, # 120 mL, 1 Refills, Maintenance, 11/01/19 10:28:00 EST, [place], 1 sprays Topically 2 times a day, 162.56, cm, 02/12/19 10:36:00 EDT, Height Start Date: 11/01/19 Status: Ordered TUSSIN DM TUSSIN DM, See Instructions, # 420 mL, Refills 1, Tot. Refills 1, Maintenance, 10 ML PO Q4H PRN FORCOUGH AT BEDTIME PER DR CRANE FAX [phone], 05/22/20 8:48:00 EDT, Compound, 162.56, cm, 02/24/20 9:30:00 EDT, Height Start Date: 05/22/20 Status: Ordered Tylenol 325 mg oral tablet 650 mg, 2, tablet, By Mouth, Every 4 hours, PER DR CRANE, # 168 tablet, Refills 5, Tot. Refills 5, Maintenance, 10/04/19 10:27:00 EST, Route to Pharmacy Electronically, [facility], 162.56, cm, 02/12/19 10:36:00 EDT, Height [...] Active Underweight(Confirmed) Active Vitamin D deficiency(Confirmed) Active 18850; repeat 2020 2colo 2005 nl, repeat 2015 3Colonoscopy 2016 positive polyp, repeat 2020. 4colo 2015 Social History Social History Type Response Smoking Status Never smoker entered on: 02/01/16 Sex
--- OUTSIDE RECORDS SUMMARY | 2024-04-02 09:42 | XMS_ITS | Continuity of Care Document ---
Author Organization [facility] Todd lt Address [address] [place] [address]- Care Team Providers Care Conservation Or Heritage Architect Name Role Phone Schuyler Crane MD Primary Care Physician [facility]counter [facility] Date(s): 09/08/20 - 10/08/20 [facility] Adult [address] [place] [address]- Allergies, Adverse Reactions, Alerts Substance Reaction Severity [...] 5 Refills, Soft Stop, 04/03/20 16:18:00 EDT, [facility], 162.56, cm, 02/24/20 9:30:00 EDT, Height Start Date: 04/03/20 Status: Ordered amLODIPine 10 mg oral tablet 10 mg, 1, tablet, By Mouth, Daily, # 90 tablet, Refills 1, Tot. Refills 1, Soft Stop, 10/08/20 8:13:00 EST, Route to Pharmacy Electronically, [facility], 162.56, cm, 02/24/20 9:30:00 EDT, Height Start Date: 10/08/20 Status: Ordered ANTACID 500 MG CHEWABLE TAB ANTACID 500 MG CHEWABLE TAB, See Instructions, # 90 each, Refills 3, Tot. Refills 3, Maintenance, TAKE 1 TABLET PO TID FOR OSTEOPOROSIS. MAY CRUSH TABLET PER DR ROSA MARIA CRUZ [phone], 07/20/18 12:11:49EDT, Compound Start Date: 07/20/18 Status: Ordered Bisco-Lax 10 mg rectal suppository See Instructions, INSERT 1 SUPP (10MG) INTO RECTUM NEEDED IF MILK OF MAGNESIA INEFFECTIVE AFTER 8 HRS/BISAC- EVAC EQUIVALENT/ IF SUPPOSITORY INEFFECTIVE AF, # 7 supp, 11 Refills, Acute, [facility], 162.56, cm, 02/24/20 9:30:00 EDT, Height Start Date: 03/30/20 Status: Ordered Blood Pressure Monitor See Instructions, 1, 0, 0, 06/11/07 11:11:37, PRN, HTN, ADS OPPTHS, [facility] [id number] [place] [address] Start Date: 06/11/07 Status: Ordered calcium carbonate 500 mg (200 mg elemental calcium) oral tablet, chewable 500 mg, 1, tablet, By Mouth, 3 times a day, PER DR CRANE, # 90 tablet, Refills 11, Tot. Refills 11, Maintenance, 12/09/19 14:35:00 EDT, Route to Pharmacy Electronically, [facility], 162.56, cm, 02/12/19 10:36:00 EDT, Height [...] Gm, 11 Refills, Maintenance, 08/07/20 11:11:00 EST, [facility], 30, USE 1/4 INCH OF GEL TO BRUSH TEETH DAILY IN THE EVENING / BRUSH T... Start Date: 08/07/20 Status: Ordered docusate sodium 100 mg oral capsule 1 capsule, By Mouth, 2 times a day, # 60 capsule, 5 Refills, Maintenance, 07/30/20 15:26:00 EST, [facility], 162.56, cm, 02/24/20 9:30:00 EDT, Height Start Date: 07/30/20 Status: Ordered EARWAX TREATMENT DROPS 6.5% EARWAX TREATMENT DROPS 6.5%, See Instructions, # 1 each, Refills 11, Tot. Refills 11, Maintenance, USE DIRECTED FAX [phone], 10/01/19 11:14:00 EST, [facility];, Compound Start Date: [...] TAKE 1 TABLET BY MOUTH DAILY (VITAMIN), [address] [place] [address], Constant Indicator, MILLITRIUM TABLET Start Date: 06/20/08 [...] bid prn nasal dryness PER DAWIT STOREY TRANSIT MECHANIC-C FAX [phone], 11/02/18 14:15:30 EST, Compound Start Date: 11/02/18 Status: Ordered Ocuflox 0.3% solution 2 drops, Eyes, Both, 4 times a day, # 10 mL, 0 Refills, Maintenance, 01/10/17 14:21:09, Ophth Solution, 2 drops Eyes, Both 4 times a day Start Date: 01/10/17 Status: Ordered Polysporin 500 u-98744 u/gm ointment See Instructions, APPLY A THIN LAYER TOPICALLY TWICE DAILY NEEDED TO RED, IRRITATED SKIN X 7 DAYS / SEE ANCILLARY ORDERS (BACITRACIN-POLYMYXIN OINTMENT), # 28.3 Gm, 5 Refills, Acute, [facility], 7, APPLY A THIN LAYER TOPICALLY TWICE DAILY N... Start Date: 03/30/20 Status: Ordered Polysporin 500 u-23635 u/gm ointment See Instructions, APPLY A THIN [...] tablet, 1 Refills, Maintenance, 09/08/20 10:55:00 EST, [facility], 162.56, cm, 02/24/20 9:30:00 EDT, Height [...] MG Q6H PRN PER DR CRANE FAX [phone], 02/01/19 9:46:36 EDT, Compound Start Date: 02/01/19 [...] CAPLETBY MOUTH QD PER DR CRANE FAX [phone], 10/08/20 11:48:00 EST, [facility], 162.56, cm, 02/24/20 9:30:00 EDT, Height Start Date: 10/08/20 Status: Ordered Tinactin 1% spray 1 sprays, Topically, 2 times a day, # 120 mL, 1 Refills, Maintenance, 11/01/19 10:28:00 EST, [place], 1 sprays Topically 2 times a day, 162.56, cm, 02/12/19 10:36:00 EDT, Height Start Date: 11/01/19 Status: Ordered TUSSIN DM KAILYNIN DM, See Instructions, # 420 mL, Refills 1, Tot. Refills 1, Maintenance, 10 ML PO Q4H PRN FORCOUGH AT BEDTIME PER DR CRANE FAX [phone], 05/22/20 8:48:00 EDT, Compound, 162.56, cm, 02/24/20 9:30:00 EDT, Height Start Date: 05/22/20 Status: Ordered Tylenol 325 mg oral tablet 650 mg, 2, tablet, By Mouth, Every 4 hours, PER DR CRANE, # 168 tablet, Refills 5, Tot. Refills 5, Maintenance, 10/04/19 10:27:00 EST, Route to Pharmacy Electronically, [facility], 162.56, cm, 02/12/19 10:36:00 EDT, Height [...] Active Underweight(Confirmed) Active Vitamin D deficiency(Confirmed) Active 79320; repeat 2020 2colo 2006 nl, repeat 2015 3Colonoscopy 2016 positive polyp, repeat 2020. 4colo 2015 Social History Social History Type Response Smoking Status Never smoker entered on: 02/01/16 Sex
--- OUTSIDE RECORDS SUMMARY | 2024-04-02 09:42 | XMS_ITS | Continuity of Care Document ---
Author Organization [facility] Salvatore Todd lt Address [address] [place] [address]- Care Team Providers Care Contract Accountant Name Role Phone Schuyler Crane MD Primary Care Physician [facility]counter [facility] Date(s): 04/06/23 - 05/06/23 [facility] Adult [address] [place] [address]- Allergies, Adverse Reactions, Alerts Substance Reaction Severity [...] 08/25/04 G cristy 1Result Comment: Td - [facility]# [id number] 2Result Comment: PCV23 - [facility]# [id number] 3Result Comment: [facility]# [id number] 4Result Comment: [10/28/2016] pharmacy 5Admin Note: given [...] 10/14/22 8:03:00 EST, Route to Pharmacy Electronically, [facility], 162.56, cm, 07/04/22 8:33:00 EDT, Height Start Date: 10/14/22 Status: Ordered All Day Allergy 10 mg oral tablet See Instructions, TAKE 1 TABLET (10 MG) BY MOUTH DAILY IN THE AM FOR SEASONAL ALLERGIES FROM DECEMBER THROUGH JUNE (START 12/24 / END 07/25) SEE ANCILLARY ORDERS, # 30 tablet, 2 Refills, Maintenance, 04/13/23 14:33:00 EDT, [facility], 162.56, cm, 0... Start Date: 04/13/23 Status: Ordered amLODIPine 10 mg oral tablet 1 tablet, By Mouth, Daily in AM, FOR HYPERTENSION., # 30 tablet, 5 Refills, Maintenance, 04/19/23 23:11:00 EDT, [facility], 162.56, cm, 04/10/23 7:35:00 EDT, Height Start Date: 04/19/23 Status: Ordered ANTACID 500 MG CHEWABLE TAB ANTACID 500 MG CHEWABLE TAB, See Instructions, # 90 each, Refills 3, Tot. Refills 3, Maintenance, TAKE 1 TABLET PO TID FOR OSTEOPOROSIS. MAY CRUSH TABLET PER DR ROSA MARIA CRUZ [phone], 07/20/18 12:11:49EDT, Compound Start Date: 07/20/18 Status: Ordered benzonatate 100 mg oral capsule 1 capsule, By Mouth, 3 times a day, PRN NEEDED FOR COUGH / IF NO IMPROVEMENT IN 3 DAYS NOTIFY MD/ IC, JAGRUTI, # 21 capsule, 0 Refills, Maintenance, 02/17/23 8:57:00 EDT, [facility], 162.56, cm, 07/04/22 8:33:00 EDT, Height Start Date: 02/17/23 Status: Ordered bisacodyl 10 mg rectal suppository See Instructions, INSERT 1 SUPP (10MG) INTO RECTUM NEEDED IF MILK OF MAGNESIA INEFFECTIVE AFTER 8 HRS/BISAC- EVAC EQUIVALENT/ IF SUPPOSITORY INEFFECTIVE AFTER 4 HRS CALL MD, # 7 supp, 11 Refills, Acute, [facility], 162.56, cm, 02/25/21 9:29:00... Start Date: 04/15/21 Status: Ordered Blood Pressure Monitor See Instructions, 1, 0, 0, 06/11/07 11:11:37, PRN, HTN, ADS OPPTHS, [facility] [address] Start Date: 06/11/07 Status: Ordered calcium carbonate 500 mg (200 mg elemental calcium) oral tablet, chewable 1, tablet, By Mouth, 3 times a day, CRUSH. IC: CALCIUM CARBONATE, # 90 tablet, Refills 5, Maintenance, 02/17/23 8:57:00 EDT, Route to Pharmacy Electronically, [facility], 162.56, cm, 07/04/22 8:33:00 EDT, Height Start Date: 02/17/23 Status: Ordered carbamide peroxide 6.5% otic solution See Instructions, INSTILL 4 DROPS INTO EACH EAR TWICE DAILY FOR 5 DAYS EACH MONTH / IC: CARBAMIDE PEROXIDE (EAR DROPS 6.5%), # 15 mL, 11 Refills, Maintenance, 08/21/22 7:49:00 EST, [facility], 30, INSTILL 4 DROPS INTO EACH [...] capsule, 5 Refills, Maintenance, 10/20/22 6:09:00 EST, [facility], 162.56, cm, 07/04/22 8:33:00 EDT, Height Start Date: 10/20/22 Status: Ordered EARWAX TREATMENT DROPS 6.5% EARWAX TREATMENT DROPS 6.5%, See Instructions, # 1 each, Refills 11, Tot. Refills 11, Maintenance, USE DIRECTED FAX [phone], 12/02/20 14:40:00 EST, [facility];, [facility], 162.56, cm, 02/24/20 9:30:00 EDT, Height Start Date: 12/02/20 Status: Ordered fluoride 1.1% topical gel See Instructions, USE 1/4 INCH OF GEL TO BRUSH TEETH DAILY IN THE EVENING / BRUSH THOROUGHLY ALONG GUMLINE IC: DENTAGEL, # 56 Gm, 11 Refills, [facility], 30, USE 1/4 INCH OF GEL TO BRUSH TEETH DAILY IN THE EVENING / BRUSH THOROUGHLY ALONG GUMLINE... Start Date: 01/28/22 Status: Ordered Carolyn-jag 8.6 mg oral tablet 1 tablet, By Mouth, Daily in PM, FOR CONSTIPATION / SEE MILK OF MAG ORDERS / IC: SENNA 8.6 MG, # 15tablet, 6 Refills, Maintenance, 10/14/22 8:03:00 EST, [facility], 162.56, cm, 07/04/22 8:33:00EDT, Height Start Date: 10/14/22 Status: Ordered Hospital Bed See Instructions, # 1 each, Refills 0, Tot. Refills 0, Maintenance, [facility] DX: Left hip fracture, seizure dis, impulse control disorder, atypical autism. Duration ongoing NPI#[id number] Height: 5'6 Weight: 137lbs, 03/22/23 13:55:... Start Date: 03/22/23 Status: Ordered Milk of Magnesia 8% oral suspension See Instructions, TAKE 2 TABLESPOONFULS (30 ML) BY MOUTH AT BEDTIME NEEDED FOR CONSTIPATION ON DAY 3 OF NO BM / SEE BISCOLAX SUPP ORDER 30ML=2,400MG, # 300 mL, 5 Refills, Acute, [facility], 162.56, cm, 02/24/20 9:30:00 EDT, Height Start Date: 10/30/20 Status: Ordered MILLITRIUM TABLET See Instructions, 30, 11, 11, 06/20/08 13:07:29, TAKE 1 TABLET BY MOUTH DAILY (VITAMIN), [address] [address], Constant Indicator, MILLITRIUM TABLET Start Date: 06/20/08 Status: Ordered OCEAN SALINE NASAL MIST OCEAN SALINE NASAL MIST, See Instructions, # 1 each, Refills 2, Tot. Refills 2, Maintenance, use bid prn nasal dryness, 11/06/18 9:57:36 EST, Compound Start Date: 11/06/18 Status: Ordered Polysporin 500 u-87837 u/gm ointment See Instructions, APPLY A THIN LAYER TOPICALLY TWICE DAILY NEEDED TO RED, IRRITATED SKIN X 7 DAYS / SEE ANCILLARY ORDERS (BACITRACIN-POLYMYXIN OINTMENT), # 28.3 Gm, 5 Refills, Maintenance, 04/18/23 8:59:00 EDT, [facility], 7, APPLY A THIN LAYE... Start Date: 04/18/23 Status: Ordered pravastatin 40 mg oral tablet See Instructions, TAKE 1 TABLET (40 MG) BY MOUTH DAILY IN PM FOR HYPERLIPIDEMIA, # 30 tablet, 5 Refills, Maintenance, 02/17/23 13:00:00 EDT, [facility], 162.56, cm, 07/04/22 8:33:00 EDT, Height [...] (SUPHEDRIN EQUIVALENT), # 30 tablet, 11 Refills, [facility], 162.56, cm, 03/24/22 10:31:00 EDT, Height Start Date: 04/22/22 Status: Ordered SUDOGEST 30 MG TABLETS SUDOGEST 30 MG TABLETS, See Instructions, # 30 each, Refills 11, Tot. Refills 11, Maintenance, TAKE30 MG Q6H PRN PER DR CRANE FAX [phone], 02/01/19 9:46:36 EDT, Compound Start Date: 02/01/19 Status: Ordered THERA CAPLETS THERA CAPLETS, See Instructions, # 30 each, Refills 5, Tot. Refills 5, Maintenance, TAKE ONE CAPLETBY MOUTH QD PER DR CRANE FAX [phone], 10/08/20 11:48:00 EST, [facility], 162.56, cm, 02/24/20 [...] mL, 1 Refills, Maintenance, 12/01/20 8:15:00 EST, [place], 1 sprays Topically 2 times a day, 162.56, cm, 02/24/20 9:30:00 EDT, Height Start Date: 12/01/20 Status: Ordered TUSSIN DM TUSSIN KUSHAL, See Instructions, # 420 mL, Refills 1, Tot. Refills 1, Maintenance, 10 ML PO Q4H PRN FORCOUGH AT BEDTIME PER DR CRANE FAX [phone], 05/22/20 8:48:00 EDT, [facility], 162.56, cm, 02/24/20 [...] Confirmed Active Vitamin D deficiency Confirmed Active 82771; repeat 2020 2colo 2006 nl, repeat 2015 3Colonoscopy 2016 positive polyp, repeat 2020. 4colo 2015 Social History Social History Type Response Smoking Status Never smoker entered on: 02/01/16 Sex Patient Care team information Care Team Personnel Name: Rosa Maria HUSTON, Schuyler Pope Position: [facility] Physician - Primary Care Member Role: PCP Address: Address: [address] [place] [address]- Care Team Related Persons Name: ELLE ALMEIDA Address: home [address] [place] [address] Name: ZAK SHELL
--- OUTSIDE RECORDS SUMMARY | 2024-04-02 09:42 | XMS_ITS | Continuity of Care Document ---
Author Organization [facility] Mike Chase Todd lt Address [address] [place] [address]- Care Team Providers Care Terrazzo Layer Name Role Phone Schuyler Crane MD Primary Care Physician [facility] Date[facility]): 04[facility]22 - 05/01/22 [facility] Adult [address] [place] [address]- Allergies, Adverse Reactions, Alerts Substance Reaction Severity [...] Replace Required Details, Route to Pharmacy Electronically, [facility], 162.56, cm, 02/25/21 9:29:00 EDT, He... Start Date: 08/31/21 Status: Ordered amLODIPine 10 mg oral tablet See Instructions, TAKE 1 TABLET (10 MG) BY MOUTH DAILY IN AM FOR HYPERTENSION, # 30 tablet, 5 Refills, [facility], 162.56, cm, 03/24/22 10:31:00 EDT, Height Start Date: 04/01/22 Status: Ordered ANTACID 500 MG CHEWABLE TAB ANTACID 500 MG CHEWABLE TAB, See Instructions, # 90 each, Refills 3, Tot. Refills 3, Maintenance, TAKE 1 TABLET PO TID FOR OSTEOPOROSIS. MAY CRUSH TABLET PER DR CRANE FX [phone], 07/20/18 12:11:49EDT, Compound Start Date: 07/20/18 Status: Ordered benzonatate 100 mg oral capsule 1 capsule, By Mouth, 3 times a day, PRN NEEDED FOR COUGH / IF NO IMPROVEMENT IN 3 DAYS NOTIFY / IC, JAGRUTI, # 21 capsule, 0 Refills, [facility], 162.56, cm, 12/06/21 13:34:00 EDT, Height Start Date: 02/25/22 Status: Ordered bisacodyl 10 mg rectal suppository See Instructions, INSERT 1 SUPP (10MG) INTO RECTUM NEEDED IF MILK OF MAGNESIA INEFFECTIVE AFTER 8 HRS/BISAC- EVAC EQUIVALENT/ IF SUPPOSITORY INEFFECTIVE AFTER 4 HRS CALL MD, # 7 supp, 11 Refills, Acute, [facility], 162.56, cm, 02/25/21 9:29:00... Start Date: 04/15/21 Status: Ordered Blood Pressure Monitor See Instructions, 1, 0, 0, 06/11/07 11:11:37, PRN, HTN, ADS OPPTHS, [facility] [address] [address] Start Date: 06/11/07 Status: Ordered calcium carbonate 500 mg (200 mg elemental calcium) oral tablet, chewable See Instructions, TAKE 1 TABLET (500 MG) BY MOUTH 3 TIMES A DAY FOR OSTEOPOROSIS MAY CRUSH TABLET IC: CALCIUM CARBONATE, # 90 tablet, Refills 5, Instructions Replace Required Details, Route to Pharmacy Electronically, [facility], 162.56, cm, 11/23... Start Date: 02/25/22 Status: Ordered cetirizine 10 mg oral tablet 1 tablet, By Mouth, Daily in AM, FOR SEASONAL ALLERGIES FROM DECEMBER THROUGH JUNE (START 12/24 / ) SEE ANCILLARY ORDERS., # 30 tablet, 5 Refills, [facility], 162.56, cm, 12/06/21 13:34:00 EDT, Height [...] 100 MG), # 60 capsule, 5 Refills, [facility], 162.56, cm, 12/06/21 13:34:00 EDT, Height Start Date: 01/13/22 Status: Ordered EARWAX TREATMENT DROPS 6.5% EARWAX TREATMENT DROPS 6.5%, See Instructions, # 1 each, Refills 11, Tot. Refills 11, Maintenance, USE DIRECTED FAX [phone], 12/02/20 14:40:00 EST, [facility];, [facility], 162.56, cm, 02/24/20 9:30:00 EDT, Height Start Date: 12/02/20 Status: Ordered fluoride 1.1% topical gel See Instructions, USE 1/4 INCH OF GEL TO BRUSH TEETH DAILY IN THE EVENING / BRUSH THOROUGHLY ALONG GUMLINE IC: DENTAGEL, # 56 Gm, 11 Refills, [facility], 30, USE 1/4 INCH OF GEL [...] ORDER 30ML=2,400MG, # 300 mL, 5 Refills, [facility], [facility], 162.56, cm, 02/24/20 9:30:00 EDT, Height Start Date: 10/30/20 Status: Ordered MILLITRIUM TABLET See Instructions, 30, 11, 11, 06/20/08 13:07:29, TAKE 1 TABLET BY MOUTH DAILY (VITAMIN), [facility] [address] [place] [address], Constant Indicator, MILLITRIUM TABLET Start Date: 06/20/08 [...] bid prn nasal dryness PER DAWIT STOREY TRUCK PACKER-C FAX [phone], 11/02/18 14:15:30 EST, Compound Start Date: 11/02/18 Status: Ordered Ocuflox 0.3% solution 2 drops, Eyes, Both, 4 times a day, # 10 mL, 0 Refills, Maintenance, 01/10/17 14:21:09, Ophth Solution, 2 drops Eyes, Both 4 times a day Start Date: 01/10/17 Status: Ordered Polysporin 500 u-10263 u/gm ointment See Instructions, APPLY A THIN LAYER TOPICALLY TWICE DAILY NEEDED TO RED, IRRITATED SKIN X 7 DAYS / SEE ANCILLARY ORDERS (BACITRACIN-POLYMYXIN OINTMENT), # 28.3 Gm, 5 Refills, Maintenance, 04/14/21 14:39:00 EDT, [facility], 7, APPLY A THIN LAY... Start Date: 04/14/21 Status: Ordered pravastatin 40 mg oral tablet 1 tablet, By Mouth, Daily, IN PM FOR HYPERLIPIDEMIA., # 30 tablet, 5 Refills, [facility], 162.56, cm, 12/06/21 13:34:00 EDT, Height [...] (SUPHEDRIN EQUIVALENT), # 30 tablet, 11 Refills, [facility], 162.56, cm, 03/24/22 10:31:00 EDT, Height Start Date: 04/22/22 Status: Ordered SUDOGEST 30 MG TABLETS SUDOGEST 30 MG TABLETS, See Instructions, # 30 each, Refills 11, Tot. Refills 11, Maintenance, TAKE30 MG Q6H PRN PER DR CRANE FAX [phone], 02/01/19 9:46:36 EDT, Compound Start Date: 02/01/19 Status: Ordered THERA CAPLETS THERA CAPLETS, See Instructions, # 30 each, Refills 5, Tot. Refills 5, Maintenance, TAKE ONE CAPLETBY MOUTH QD PER DR CRANE FAX [phone], 10/08/20 11:48:00 EST, [facility], 162.56, cm, 02/24/20 9:30:00 EDT, Height Start Date: 10/08/20 Status: Ordered Thera oral tablet See Instructions, TAKE 1 TABLET BY MOUTH DAILY IN THE AM (VITAMIN), # 30 tablet, 5 Refills, [facility], 30, TAKE 1 TABLET BY MOUTH [...] mL, 1 Refills, Maintenance, 12/01/20 8:15:00 EST, [place], 1 sprays Topically 2 times a day, 162.56, cm, 02/24/20 9:30:00 EDT, Height Start Date: 12/01/20 Status: Ordered JAMAL FATIMA, See Instructions, # 420 mL, Refills 1, Tot. Refills 1, Maintenance, 10 ML PO Q4H PRN FORCOUGH AT BEDTIME PER DR CRANE FAX [phone], 05/22/20 8:48:00 EDT, Compound, 162.56, cm, 02/24/20 [...] Seizure disorder(Confirmed) Active Vitamin D deficiency(Confirmed) Active 79044; repeat 2020 2colo 2006 nl, repeat 2015 3Colonoscopy 2016 positive polyp, repeat 2020. 4colo 2015 Social History Social History Type Response Smoking Status Never smoker entered on: 02/01/16 Sex
--- OUTSIDE RECORDS SUMMARY | 2024-04-02 09:42 | XMS_ITS | Continuity of Care Document ---
Author Organization [facility] [place] lt Address [address] [place] [address]- Care Team Providers Care Plant Changer Name Role Phone Schuyler Crane MD Primary Care Phys[facility]24 - 02/11/24 [facility] Adult [address] [place] [address]- Allergies, Adverse Reactions, Alerts Substance Reaction Severity Status amoxicillin Active cephalosporins Active benzodiazepines Active Klonopin Wafer Active penicillins Active Ativan Active Immunizations Given and Recorded [...] 08/25/04 G cristy 1Result Comment: Td - [facility]# [id number] 2Result Comment: PCV23 - [facility]# [id number] 3Result Comment: [facility]# [id number] 4Result Comment: [10/28/2016] pharmacy 5Admin Note: given [...] 10/14/22 8:03:00 EST, Route to Pharmacy Electronically, [facility], 162.56, cm, 07/04/22 8:33:00 EDT, Height Start Date: 10/14/22 Status: Ordered acetaminophen 325 mg oral tablet 2, tablet, By Mouth, 2 times a day, PRN, # 20 tablet, Refills 0, Tot. Refills 0, Maintenance, NEEDED, 12/12/23 11:09:00 EDT, Route to Pharmacy Electronically, [facility], 162.56, cm, 12/11/2409:47:00 EDT, Height Start Date: 12/12/23 Stop Date: 12/17/23 Status: Ordered All Day Allergy 10 mg oral tablet 1 tablet, By Mouth, Daily in AM, FOR SEASONAL ALLERGIES FROM DECEMBER THROUGH JUNE (START 12/24 / ) SEE ANCILLARY ORDERS., # 30 tablet, 11 Refills, Maintenance, 12/21/23 7:45:00 EDT, [facility], 162.56, cm, 12/12/23 10:47:00 EDT, Height Start Date: 12/21/23 Status: Ordered amLODIPine 10 mg oral tablet 1 tablet, By Mouth, Daily in AM, FOR HYPERTENSION., # 30 tablet, 5 Refills, Maintenance, 10/25/23 0:22:00 EST, [facility], 162.56, cm, 10/03/23 9:00:00 EST, Height Start Date: 10/25/23 Status: Ordered ANTACID 500 MG CHEWABLE TAB ANTACID 500 MG CHEWABLE TAB, See Instructions, # 90 each, Refills 3, Tot. Refills 3, Maintenance, TAKE 1 TABLET PO TID FOR OSTEOPOROSIS. MAY CRUSH TABLET PER DR ROSA MARIA CRUZ [phone], 07/20/18 12:11:49EDT, Compound Start Date: 07/20/18 Status: Ordered benzonatate 100 mg oral capsule 1 capsule, By Mouth, 3 times a day, PRN NEEDED FOR COUGH / IF NO IMPROVEMENT IN 3 DAYS NOTIFY MD/ IC, JAGRUTI, # 21 capsule, 0 Refills, Maintenance, 10/05/23 12:01:00 EST, [facility], 162.56, cm, 10/03/23 9:00:00 EST, Height Start Date: 10/05/23 Status: Ordered bisacodyl 10 mg rectal suppository See Instructions, INSERT 1 SUPP (10MG) INTO RECTUM NEEDED IF MILK OF MAGNESIA INEFFECTIVE AFTER 8 HRS/BISAC- EVAC EQUIVALENT/ IF SUPPOSITORY INEFFECTIVE AFTER 4 HRS CALL MD, # 7 supp, 11 Refills, Acute, [facility], 162.56, cm, 02/25/21 9:29:00... Start Date: 04/15/21 Status: Ordered Blood Pressure Monitor See Instructions, 1, 0, 0, 06/11/07 11:11:37, PRN, HTN, ADS OPPTHS, [facility] [id number] [place] [address] Start Date: 06/11/07 Status: Ordered calcium carbonate 500 mg (200 mg elemental calcium) oral tablet, chewable 1, tablet, By Mouth, 3 times a day, CRUSH. IC: CALCIUM CARBONATE, # 90 tablet, Refills 5, Maintenance, 10/02/23 8:50:00 EST, Route to Pharmacy Electronically, [facility], 162.56, cm, 09/19/23 10:28:00 EST, Height Start Date: 10/02/23 Status: Ordered carbamide peroxide 6.5% otic solution See Instructions, INSTILL 4 DROPS INTO EACH EAR TWICE DAILY FOR 5 DAYS EACH MONTH / IC: CARBAMIDE PEROXIDE (EAR DROPS 6.5%), # 15 mL, 11 Refills, Maintenance, 09/01/23 9:17:00 EST, [facility], 30, INSTILL 4 DROPS INTO EACH [...] capsule, 5 Refills, Maintenance, 11/23/23 20:00:00 EST, [facility], 162.56, cm, 10/03/23 9:00:00 EST, Height Start Date: 11/23/23 Status: Ordered EARWAX TREATMENT DROPS 6.5% EARWAX TREATMENT DROPS 6.5%, See Instructions, # 1 each, Refills 11, Tot. Refills 11, Maintenance, USE DIRECTED FAX [phone], 12/02/20 14:40:00 EST, [facility], 162.56, cm, 02/24/20 9:30:00 EDT, Height Start Date: 12/02/20 Status: Ordered fluoride 1.1% topical gel See Instructions, USE 1/4 INCH OF GEL TO BRUSH TEETH DAILY IN THE EVENING / BRUSH THOROUGHLY ALONG GUMLINE IC: DENTAGEL, # 56 Gm, 11 Refills, Maintenance, 09/21/23 16:44:00 EST, [facility], 30, USE 1/4 INCH OF GEL TO BRUSH TEETH DAILY IN THE EVEN... Start Date: 09/21/23 Status: Ordered Carolyn-jag 8.6 mg oral tablet 1 tablet, By Mouth, Daily in PM, FOR CONSTIPATION / SEE MILK OF MAG ORDERS / IC: SENNA 8.6 MG, # 15tablet, 6 Refills, Maintenance, 10/14/22 8:03:00 EST, [facility], 162.56, cm, 07/04/22 8:33:00EDT, Height Start Date: 10/14/22 Status: Ordered Hospital Bed See Instructions, # 1 each, Refills 0, Tot. Refills 0, Maintenance, [facility] Bed DX: Left hip fracture, seizure dis, impulse control disorder, atypical autism. Duration ongoing NPI#[id number] Height: 5'6 Weight: 137lbs, 03/22/23 13:55:... Start Date: 03/22/23 Status: Ordered ibuprofen 600 mg oral tablet 600 mg, 1, tablet, By Mouth, Every 8 hours, PRN for pain, # 30 tablet, Refills 0, Tot. Refills 0, Maintenance, 02/08/24 12:44:00 EDT, Route to Pharmacy Electronically, [facility], Partial fill upon patient request if the prescription is for a adeline... Start Date: 02/08/24 Status: Ordered Milk of Magnesia 8% oral suspension See Instructions, TAKE 2 TABLESPOONFULS (30 ML) BY MOUTH AT BEDTIME NEEDED FOR CONSTIPATION ON DAY 3 OF NO BM / SEE BISCOLAX SUPP ORDER 30ML=2,400MG, # 300 mL, 5 Refills, Acute, [facility], 162.56, cm, 02/24/20 9:30:00 EDT, Height Start Date: 10/30/20 Status: Ordered MILLITRIUM TABLET See Instructions, 30, 11, 11, 06/20/08 13:07:29, TAKE 1 TABLET BY MOUTH DAILY (VITAMIN), [facility] [address] [place] [address], Constant Indicator, MILLITRIUM TABLET Start Date: 06/20/08 [...] tablet, 0 Refills, Maintenance, 10/03/23 8:50:00 EST, [facility], Partial fill upon patient request if the prescription... Start Date: 10/03/23 Status: Ordered Polysporin 500 u-65084 u/gm ointment See Instructions, APPLY A THIN LAYER TOPICALLY TWICE DAILY NEEDED TO RED, IRRITATED SKIN X 7 DAYS / SEE ANCILLARY ORDERS (BACITRACIN-POLYMYXIN OINTMENT), # 28.3 Gm, 5 Refills, Maintenance, 04/18/23 8:59:00 EDT, [facility], 7, APPLY A THIN LAYE... Start Date: 04/18/23 Status: Ordered pravastatin 40 mg oral tablet 1 tablet, By Mouth, Daily, IN PM FOR HYPERLIPIDEMIA., # 30 tablet, 5 Refills, Maintenance, 248:50:00 EST, [facility], 162.56, cm, 09/19/23 10:28:00 EST, Height Start Date: 10/02/23 Status: Ordered Profola oral tablet 1 tablet, By Mouth, Daily, # 30 tablet, 11 Refills, Maintenance, 05/19/23 10:41:00 EDT, [facility], Partial fill upon patient request if [...] tablet, 11 Refills, Maintenance, 10/26/23 8:49:00 EST, [facility], 162.56, cm, 10/03/23 9:00:00 EST, Height Start Date: 10/26/23 Status: Ordered SUDOGEST 30 MG TABLETS SUDOGEST 30 MG TABLETS, See Instructions, # 30 each, Refills 11, Tot. Refills 11, Maintenance, TAKE30 MG Q6H PRN PER DR CRANE FAX [phone], 02/01/19 9:46:36 EDT, Compound Start Date: 02/01/19 Status: Ordered Thera oral tablet 1 tablet, By Mouth, Daily in AM, VITAMIN., # 30 tablet, 5 Refills, Maintenance, 10/25/23 10:03:00 EST, [facility], 30, TAKE 1 TABLET BY MOUTH [...] mL, 1 Refills, Maintenance, 12/01/20 8:15:00 EST, [place], [facility], 1 sprays Topically 2 times a day, 162.56, cm, 02/24/20 9:30:00 EDT, Height Start Date: 12/01/20 Status: Ordered KAILYNIN KUSHAL FATIMA, See Instructions, # 420 mL, Refills 1, Tot. Refills 1, Maintenance, 10 ML PO Q4H PRN FORCOUGH AT BEDTIME PER DR CRANE FAX [phone], 05/22/20 8:48:00 EDT, [facility], 162.56, cm, 02/24/20 [...] Confirmed Active Vitamin D deficiency Confirmed Active 80296; repeat 2020 2colo 2005 nl, repeat 2015 3Colonoscopy 2016 positive polyp, repeat 2020. 4colo 2015 Social History Social History Type Response Smoking Status Never smoker entered on: 02/01/16 Sex Patient Care team information Care Team Personnel Name: Rosa Maria HUSTON, Schuyler Pope Position: [facility] Physician - Primary Care Member Role: PCP Address: Address: [address] [place] [address]- Care Team Related Persons Name: ELLE ALMEIDA Address: home [address] [place] [id number] Name: ZAK SHELL
--- OUTSIDE RECORDS SUMMARY | 2024-04-02 09:42 | XMS_ITS | Continuity of Care Document ---
Author Organization [facility] [place] Todd lt Address [address] [place] [address]- Care Team Providers Care Development Manager Name Role Phone Schuyler Crane MD Primary Care Physician [facility] 10[facility]23 - 11/02/23 [facility] Adult [address] [place] [address]- Allergies, Adverse Reactions, Alerts Substance Reaction Severity [...] G cristy 1Result Comment: Td - [facility]# [id number] 2Result Comment: PCV23 - [facility]# [id number] 3Result Comment: [facility]# [id number] 4Result Comment: [10/28/2016] pharmacy 5Admin Note: given [...] 10/14/22 8:03:00 EST, Route to Pharmacy Electronically, [facility], 162.56, cm, 07/04/22 8:33:00 EDT, Height Start Date: 10/14/22 Status: Ordered All Day Allergy 10 mg oral tablet See Instructions, TAKE 1 TABLET (10 MG) BY MOUTH DAILY IN THE AM FOR SEASONAL ALLERGIES FROM DECEMBER THROUGH JUNE (START 12/24 / END 07/25) SEE ANCILLARY ORDERS, # 30 tablet, 2 Refills, Maintenance, 04/13/23 14:33:00 EDT, [facility], 162.56, cm, 0... Start Date: 04/13/23 Status: Ordered amLODIPine 10 mg oral tablet 1 tablet, By Mouth, Daily in AM, FOR HYPERTENSION., # 30 tablet, 5 Refills, Maintenance, 10/25/23 0:22:00 EST, [facility], 162.56, cm, 10/03/23 9:00:00 EST, Height Start Date: 10/25/23 Status: Ordered ANTACID 500 MG CHEWABLE TAB ANTACID 500 MG CHEWABLE TAB, See Instructions, # 90 each, Refills 3, Tot. Refills 3, Maintenance, TAKE 1 TABLET PO TID FOR OSTEOPOROSIS. MAY CRUSH TABLET PER DR CRANE FX [phone], 07/20/18 12:11:49EDT, Compound Start Date: 07/20/18 Status: Ordered benzonatate 100 mg oral capsule 1 capsule, By Mouth, 3 times a day, PRN NEEDED FOR COUGH / IF NO IMPROVEMENT IN 3 DAYS NOTIFY MD/ IC, JAGRUTI, # 21 capsule, 0 Refills, Maintenance, 10/05/23 12:01:00 EST, [facility], 162.56, cm, 10/03/23 9:00:00 EST, Height Start Date: 10/05/23 Status: Ordered bisacodyl 10 mg rectal suppository See Instructions, INSERT 1 SUPP (10MG) INTO RECTUM NEEDED IF MILK OF MAGNESIA INEFFECTIVE AFTER 8 HRS/BISAC- EVAC EQUIVALENT/ IF SUPPOSITORY INEFFECTIVE AFTER 4 HRS CALL MD, # 7 supp, 11 Refills, Acute, [facility], 162.56, cm, 02/25/21 9:29:00... Start Date: 04/15/21 Status: Ordered Blood Pressure Monitor See Instructions, 1, 0, 0, 06/11/07 11:11:37, PRN, HTN, ADS OPPTHS, [facility] [place] [address] Start Date: 06/11/07 Status: Ordered calcium carbonate 500 mg (200 mg elemental calcium) oral tablet, chewable 1, tablet, By Mouth, 3 times a day, CRUSH. IC: CALCIUM CARBONATE, # 90 tablet, Refills 5, Maintenance, 10/02/23 8:50:00 EST, Route to Pharmacy Electronically, [facility], 162.56, cm, 09/19/23 10:28:00 EST, Height [...] capsule, 5 Refills, Maintenance, 06/06/23 14:01:00 EDT, [facility], 162.56, cm, 05/15/23 9:41:00 EDT, Height Start Date: 06/06/23 Status: Ordered EARWAX TREATMENT DROPS 6.5% EARWAX TREATMENT DROPS 6.5%, See Instructions, # 1 each, Refills 11, Tot. Refills 11, Maintenance, USE DIRECTED FAX [phone], 12/02/20 14:40:00 EST, [facility], 162.56, cm, 02/24/20 9:30:00 EDT, Height Start Date: 12/02/20 Status: Ordered fluoride 1.1% topical gel See Instructions, USE 1/4 INCH OF GEL TO BRUSH TEETH DAILY IN THE EVENING / BRUSH THOROUGHLY ALONG GUMLINE IC: DENTAGEL, # 56 Gm, 11 Refills, Maintenance, 09/21/23 16:44:00 EST, [facility], 30, USE 1/4 INCH OF GEL TO BRUSH TEETH DAILY IN THE EVEN... Start Date: 09/21/23 Status: Ordered Carolyn-jag 8.6 mg oral tablet 1 tablet, By Mouth, Daily in PM, FOR CONSTIPATION / SEE MILK OF MAG ORDERS / IC: SENNA 8.6 MG, # 15tablet, 6 Refills, Maintenance, 10/14/22 8:03:00 EST, [facility], 162.56, cm, 07/04/22 8:33:00EDT, Height Start Date: 10/14/22 Status: Ordered Hospital Bed See Instructions, # 1 each, Refills 0, Tot. Refills 0, Maintenance, [facility] DX: Left hip fracture, seizure dis, impulse control disorder, atypical autism. Duration ongoing NPI#[id number] Height: 5'6 Weight: 137lbs, 03/22/23 13:55:... Start Date: 03/22/23 Status: Ordered Milk of Magnesia 8% oral suspension See Instructions, TAKE 2 TABLESPOONFULS (30 ML) BY MOUTH AT BEDTIME NEEDED FOR CONSTIPATION ON DAY 3 OF NO BM / SEE BISCOLAX SUPP ORDER 30ML=2,400MG, # 300 mL, 5 Refills, Acute, [facility], 162.56, cm, 02/24/20 9:30:00 EDT, Height Start Date: 10/30/20 Status: Ordered MILLITRIUM TABLET See Instructions, 30, 11, 11, 06/20/08 13:07:29, TAKE 1 TABLET BY MOUTH DAILY (VITAMIN), [facility] [address] [place] [address], Constant Indicator, MILLITRIUM TABLET Start Date: 06/20/08 [...] tablet, 0 Refills, Maintenance, 10/03/23 8:50:00 EST, [facility], Partial fill upon patient request if the prescription... Start Date: 10/03/23 Status: Ordered Polysporin 500 u-44431 u/gm ointment See Instructions, APPLY A THIN LAYER TOPICALLY TWICE DAILY NEEDED TO RED, IRRITATED SKIN X 7 DAYS / SEE ANCILLARY ORDERS (BACITRACIN-POLYMYXIN OINTMENT), # 28.3 Gm, 5 Refills, Maintenance, 04/18/23 8:59:00 EDT, [facility], 7, APPLY A THIN LAYE... Start Date: 04/18/23 Status: Ordered pravastatin 40 mg oral tablet 1 tablet, By Mouth, Daily, IN PM FOR HYPERLIPIDEMIA., # 30 tablet, 5 Refills, Maintenance, 248:50:00 EST, [facility], 162.56, cm, 09/19/23 10:28:00 EST, Height Start Date: 10/02/23 Status: Ordered Profola oral tablet 1 tablet, By Mouth, Daily, # 30 tablet, 11 Refills, Maintenance, 05/19/23 10:41:00 EDT, [facility], Partial fill upon patient request if [...] tablet, 11 Refills, Maintenance, 10/26/23 8:49:00 EST, [facility], 162.56, cm, 10/03/23 9:00:00 EST, Height Start Date: 10/26/23 Status: Ordered SUDOGEST 30 MG TABLETS SUDOGEST 30 MG TABLETS, See Instructions, # 30 each, Refills 11, Tot. Refills 11, Maintenance, TAKE30 MG Q6H PRN PER DR CRANE FAX [phone], 02/01/19 9:46:36 EDT, Compound Start Date: 02/01/19 [...] mL, 1 Refills, Maintenance, 12/01/20 8:15:00 EST, [place], [facility], 1 sprays Topically 2 times a day, 162.56, cm, 02/24/20 9:30:00 EDT, Height Start Date: 12/01/20 Status: Ordered TUSSIN DM KAILYNIN KUSHAL, See Instructions, # 420 mL, Refills 1, Tot. Refills 1, Maintenance, 10 ML PO Q4H PRN FORCOUGH AT BEDTIME PER DR CRANE FAX [phone], 05/22/20 8:48:00 EDT, [facility], 162.56, cm, 02/24/20 [...] Confirmed Active Vitamin D deficiency Confirmed Active 25690; repeat 2020 2colo 2005 nl, repeat 2015 3Colonoscopy 2016 positive polyp, repeat 2020. 4colo 2015 Social History Social History Type Response Smoking Status Never smoker entered on: 02/01/16 Sex Patient Care team information Care Team Personnel Name: Bisi HUSTON, Schuyler Pope Position: [facility] Physician - Primary Care Member Role: PCP Address: Address: [address] [facility] [place] [address]- Care Team Related Persons Name: ELLE ALMEIDA Address: home [address] [place] [address] [place] [phone] Name: ZAK SHELL
--- OUTSIDE RECORDS SUMMARY | 2024-04-02 09:42 | XMS_ITS | Continuity of Care Document ---
Author Organization [facility] [place] Todd lt Address [address] [place] [address]- Care Team Providers Care Cleaner Assistant Name Role Phone Schuyler Crane MD Primary Care Physician [facility]23 - 03/25/23 [facility] Adult [address] [place] [address]- Allergies, Adverse Reactions, Alerts Substance Reaction Severity [...] 08/25/04 G cristy 1Result Comment: Td - [facility]# [id number] 2Result Comment: PCV23 - [facility]# [id number] 3Result Comment: [facility]# [id number] 4Result Comment: [10/28/2016] pharmacy 5Admin Note: given [...] 10/14/22 8:03:00 EST, Route to Pharmacy Electronically, [facility], 162.56, cm, 07/04/22 8:33:00 EDT, Height Start Date: 10/14/22 Status: Ordered All Day Allergy 10 mg oral tablet See Instructions, TAKE 1 TABLET (10 MG) BY MOUTH DAILY IN THE AM FOR SEASONAL ALLERGIES FROM DECEMBER THROUGH JUNE (START 12/24 / END 07/25) SEE ANCILLARY ORDERS, # 30 tablet, 2 Refills, Maintenance, 07/22/22 15:15:00 EDT, [facility], 162.56, cm, 1... Start Date: 07/22/22 Status: Ordered amLODIPine 10 mg oral tablet See Instructions, TAKE 1 TABLET (10 MG) BY MOUTH DAILY IN AM FOR HYPERTENSION, # 30 tablet, 5 Refills, 09/29/22 11:37:00 EST, [facility], 162.56, cm, 07/04/22 8:33:00 EDT, Height Start Date: 09/29/22 Status: Ordered ANTACID 500 MG CHEWABLE TAB ANTACID 500 MG CHEWABLE TAB, See Instructions, # 90 each, Refills 3, Tot. Refills 3, Maintenance, TAKE 1 TABLET PO TID FOR OSTEOPOROSIS. MAY CRUSH TABLET PER DR ROSA MARIA CRUZ [phone], 07/20/18 12:11:49EDT, [facility] Start Date: 07/20/18 Status: Ordered benzonatate 100 mg oral capsule 1 capsule, By Mouth, 3 times a day, PRN NEEDED FOR COUGH / IF NO IMPROVEMENT IN 3 DAYS NOTIFY MD/ IC, JAGRUTI, # 21 capsule, 0 Refills, Maintenance, 02/17/23 8:57:00 EDT, [facility], 162.56, cm, 07/04/22 8:33:00 EDT, Height Start Date: 02/17/23 Status: Ordered bisacodyl 10 mg rectal suppository See Instructions, INSERT 1 SUPP (10MG) INTO RECTUM NEEDED IF MILK OF MAGNESIA INEFFECTIVE AFTER 8 HRS/BISAC- EVAC EQUIVALENT/ IF SUPPOSITORY INEFFECTIVE AFTER 4 HRS CALL MD, # 7 supp, 11 Refills, Acute, [facility], 162.56, cm, 02/25/21 9:29:00... Start Date: 04/15/21 Status: Ordered Blood Pressure Monitor See Instructions, 1, 0, 0, 06/11/07 11:11:37, PRN, HTN, ADS OPPTHS, [facility] [place] [address] Start Date: 06/11/07 Status: Ordered calcium carbonate 500 mg (200 mg elemental calcium) oral tablet, chewable 1, tablet, By Mouth, 3 times a day, CRUSH. IC: CALCIUM CARBONATE, # 90 tablet, Refills 5, Maintenance, 02/17/23 8:57:00 EDT, Route to Pharmacy Electronically, [facility], 162.56, cm, 07/04/22 8:33:00 EDT, Height Start Date: 02/17/23 Status: Ordered carbamide peroxide 6.5% otic solution See Instructions, INSTILL 4 DROPS INTO EACH EAR TWICE DAILY FOR 5 DAYS EACH MONTH / IC: CARBAMIDE PEROXIDE (EAR DROPS 6.5%), # 15 mL, 11 Refills, Maintenance, 08/21/22 7:49:00 EST, [facility], 30, INSTILL 4 DROPS INTO EACH [...] capsule, 5 Refills, Maintenance, 10/20/22 6:09:00 EST, [facility], 162.56, cm, 07/04/22 8:33:00 EDT, Height Start Date: 10/20/22 Status: Ordered EARWAX TREATMENT DROPS 6.5% EARWAX TREATMENT DROPS 6.5%, See Instructions, # 1 each, Refills 11, Tot. Refills 11, Maintenance, USE DIRECTED FAX [phone], 12/02/20 14:40:00 EST, [facility], 162.56, cm, 02/24/20 9:30:00 EDT, Height Start Date: 12/02/20 Status: Ordered fluoride 1.1% topical gel See Instructions, USE 1/4 INCH OF GEL TO BRUSH TEETH DAILY IN THE EVENING / BRUSH THOROUGHLY ALONG GUMLINE IC: DENTAGEL, # 56 Gm, 11 Refills, [facility], 30, USE 1/4 INCH OF GEL TO BRUSH TEETH DAILY IN THE EVENING / BRUSH THOROUGHLY ALONG GUMLINE... Start Date: 01/28/22 Status: Ordered Carolyn-jag 8.6 mg oral tablet 1 tablet, By Mouth, Daily in PM, FOR CONSTIPATION / SEE MILK OF MAG ORDERS / IC: SENNA 8.6 MG, # 15tablet, 6 Refills, Maintenance, 10/14/22 8:03:00 EST, [facility], 162.56, cm, 07/04/22 8:33:00EDT, Height Start [...] impulse control disorder, atypical autism. Duration ongoing NPI#[id number] Height: 5'6 Weight: 137lbs, 03/22/23 13:55:... Start Date: 03/22/23 Status: Ordered Milk of Magnesia 8% oral suspension See Instructions, TAKE 2 TABLESPOONFULS (30 ML) BY MOUTH AT BEDTIME NEEDED FOR CONSTIPATION ON DAY 3 OF NO BM / SEE BISCOLAX SUPP ORDER 30ML=2,400MG, # 300 mL, 5 Refills, Acute, [facility], 162.56, cm, 02/24/20 9:30:00 EDT, Height Start Date: 10/30/20 Status: Ordered MILLITRIUM TABLET See Instructions, 30, 11, 11, 06/20/08 13:07:29, TAKE 1 TABLET BY MOUTH DAILY (VITAMIN), [facility] [address] [place] [address], Constant Indicator, MILLITRIUM TABLET Start Date: 06/20/08 [...] bid prn nasal dryness PER [employer] FAX [phone], 11/02/18 14:15:30 EST, [facility] Start Date: 11/02/18 Status: Ordered Ocuflox 0.3% solution 2 drops, Eyes, Both, 4 times a day, # 10 mL, 0 Refills, Maintenance, 01/10/17 14:21:09, Ophth Solution, 2 drops Eyes, Both 4 times a day Start Date: 01/10/17 Status: Ordered Polysporin 500 u-04641 u/gm ointment See Instructions, APPLY A THIN LAYER TOPICALLY TWICE DAILY NEEDED TO RED, IRRITATED SKIN X 7 DAYS / SEE ANCILLARY ORDERS (BACITRACIN-POLYMYXIN OINTMENT), # 28.3 Gm, 5 Refills, Maintenance, 04/14/21 14:39:00 EDT, [facility], 7, APPLY A THIN LAY... Start Date: 04/14/21 Status: Ordered pravastatin 40 mg oral tablet See Instructions, TAKE 1 TABLET (40 MG) BY MOUTH DAILY IN PM FOR HYPERLIPIDEMIA, # 30 tablet, 5 Refills, Maintenance, 02/17/23 13:00:00 EDT, [facility], 162.56, cm, 07/04/22 8:33:00 EDT, Height [...] (SUPHEDRIN EQUIVALENT), # 30 tablet, 11 Refills, [facility], 162.56, cm, 03/24/22 10:31:00 EDT, Height Start Date: 04/22/22 Status: Ordered SUDOGEST 30 MG TABLETS SUDOGEST 30 MG TABLETS, See Instructions, # 30 each, Refills 11, Tot. Refills 11, Maintenance, TAKE30 MG Q6H PRN PER DR CRANE FAX [phone], 02/01/19 9:46:36 EDT, [facility] Start Date: 02/01/19 Status: Ordered THERA CAPLETS THERA CAPLETS, See Instructions, # 30 each, Refills 5, Tot. Refills 5, Maintenance, TAKE ONE CAPLETBY MOUTH QD PER DR CRANE FAX [phone], 10/08/20 11:48:00 EST, [facility], 162.56, cm, 02/24/20 [...] mL, 1 Refills, Maintenance, 12/01/20 8:15:00 EST, [place], [facility], 1 sprays Topically 2 times a day, 162.56, cm, 02/24/20 9:30:00 EDT, Height Start Date: 12/01/20 Status: Ordered KAILYNIN DM JAMAL DM, See Instructions, # 420 mL, Refills 1, Tot. Refills 1, Maintenance, 10 ML PO Q4H PRN FORCOUGH AT BEDTIME PER DR CRANE FAX [phone], 05/22/20 8:48:00 EDT, [facility], 162.56, cm, 02/24/20 [...] Confirmed Active Vitamin D deficiency Confirmed Active 87352; repeat 2020 2colo 2005 nl, repeat 2015 3Colonoscopy 2016 positive polyp, repeat 2020. 4colo 2015 Social History Social History Type Response Smoking Status Never smoker entered on: 02/01/16 Sex Patient Care team information Care Team Personnel Name: Schuyler Crane MD Position: [facility] Physician - Primary Care Member Role: PCP Address: Address: [address] [place] [address]- Care Team Related Persons Name: ELLE ALMEIDA Address: home [address] [place] [id number] Name: ZAK SHELL
--- OUTSIDE RECORDS SUMMARY | 2024-04-02 09:42 | XMS_ITS | Continuity of Care Document ---
Author Organization [facility] Salvatore Todd lt Address [address] [place] [address]- Care Team Providers Care Bar Tender Name Role Phone Schuyler Crane MD Primary Care Physician [facility] Date[facility]): 02[facility]15[facility]24 - 03/16/24 [facility] Adult [address] [place] [address]- Allergies, Adverse Reactions, Alerts Substance Reaction Severity [...] 1Result Comment: Td - [facility]# [id number] 2Result Comment: PCV23 - [facility]# [id number] 3Result Comment: [facility]# [id number] 4Result Comment: [10/28/2016] pharmacy 5Admin Note: given [...] 10/14/22 8:03:00 EST, Route to Pharmacy Electronically, [facility], 162.56, cm, 07/04/22 8:33:00 EDT, Height Start Date: 10/14/22 Status: Ordered acetaminophen 325 mg oral tablet 2, tablet, By Mouth, 2 times a day, PRN, # 20 tablet, Refills 0, Tot. Refills 0, Maintenance, NEEDED, 12/12/23 11:09:00 EDT, Route to Pharmacy Electronically, [facility], 162.56, cm, 12/11/2409:47:00 EDT, Height Start Date: 12/12/23 Stop Date: 12/17/23 Status: Ordered All Day Allergy 10 mg oral tablet 1 tablet, By Mouth, Daily in AM, FOR SEASONAL ALLERGIES FROM DECEMBER THROUGH JUNE (START 12/24 / ) SEE ANCILLARY ORDERS., # 30 tablet, 11 Refills, Maintenance, 12/21/23 7:45:00 EDT, [facility], 162.56, cm, 12/12/23 10:47:00 EDT, Height Start Date: 12/21/23 Status: Ordered amLODIPine 10 mg oral tablet 1 tablet, By Mouth, Daily in AM, FOR HYPERTENSION., # 30 tablet, 5 Refills, Maintenance, 10/25/23 0:22:00 EST, [facility], 162.56, cm, 10/03/23 9:00:00 EST, Height Start Date: 10/25/23 Status: Ordered ANTACID 500 MG CHEWABLE TAB ANTACID 500 MG CHEWABLE TAB, See Instructions, # 90 each, Refills 3, Tot. Refills 3, Maintenance, TAKE 1 TABLET PO TID FOR OSTEOPOROSIS. MAY CRUSH TABLET PER DR ROSA MARIA CRUZ [phone], 07/20/18 12:11:49EDT, Compound Start Date: 07/20/18 Status: Ordered benzonatate 100 mg oral capsule 1 capsule, By Mouth, 3 times a day, PRN NEEDED FOR COUGH / IF NO IMPROVEMENT IN 3 DAYS NOTIFY MD/ IC, JAGRUTI, # 21 capsule, 0 Refills, Maintenance, 10/05/23 12:01:00 EST, [facility], 162.56, cm, 10/03/23 9:00:00 EST, Height Start Date: 10/05/23 Status: Ordered bisacodyl 10 mg rectal suppository See Instructions, INSERT 1 SUPP (10MG) INTO RECTUM NEEDED IF MILK OF MAGNESIA INEFFECTIVE AFTER 8 HRS/BISAC- EVAC EQUIVALENT/ IF SUPPOSITORY INEFFECTIVE AFTER 4 HRS CALL MD, # 7 supp, 11 Refills, Acute, [facility], 162.56, cm, 02/25/21 9:29:00... Start Date: 04/15/21 Status: Ordered Blood Pressure Monitor See Instructions, 1, 0, 0, 06/11/07 11:11:37, PRN, HTN, ADS OPPTHS, [facility] [id number] [place] [address] Start Date: 06/11/07 Status: Ordered calcium carbonate 500 mg (200 mg elemental calcium) oral tablet, chewable 1, tablet, By Mouth, 3 times a day, CRUSH. IC: CALCIUM CARBONATE, # 90 tablet, Refills 5, Maintenance, 10/02/23 8:50:00 EST, Route to Pharmacy Electronically, [facility], 162.56, cm, 09/19/23 10:28:00 EST, Height Start Date: 10/02/23 Status: Ordered carbamide peroxide 6.5% otic solution See Instructions, INSTILL 4 DROPS INTO EACH EAR TWICE DAILY FOR 5 DAYS EACH MONTH / IC: CARBAMIDE PEROXIDE (EAR DROPS 6.5%), # 15 mL, 11 Refills, Maintenance, 09/01/23 9:17:00 EST, [facility], 30, INSTILL 4 DROPS INTO EACH [...] capsule, 5 Refills, Maintenance, 11/23/23 20:00:00 EST, [facility], 162.56, cm, 10/03/23 9:00:00 EST, Height Start Date: 11/23/23 Status: Ordered EARWAX TREATMENT DROPS 6.5% EARWAX TREATMENT DROPS 6.5%, See Instructions, # 1 each, Refills 11, Tot. Refills 11, Maintenance, USE DIRECTED FAX [phone], 12/02/20 14:40:00 EST, [facility], 162.56, cm, 02/24/20 9:30:00 EDT, Height Start Date: 12/02/20 Status: Ordered fluoride 1.1% topical gel See Instructions, USE 1/4 INCH OF GEL TO BRUSH TEETH DAILY IN THE EVENING / BRUSH THOROUGHLY ALONG GUMLINE IC: DENTAGEL, # 56 Gm, 11 Refills, Maintenance, 09/21/23 16:44:00 EST, [facility], 30, USE 1/4 INCH OF GEL TO BRUSH TEETH DAILY IN THE EVEN... Start Date: 09/21/23 Status: Ordered Carolyn-jag 8.6 mg oral tablet 1 tablet, By Mouth, Daily in PM, FOR CONSTIPATION / SEE MILK OF MAG ORDERS / IC: SENNA 8.6 MG, # 15tablet, 6 Refills, Maintenance, 10/14/22 8:03:00 EST, [facility], 162.56, cm, 07/04/22 8:33:00EDT, Height Start Date: 10/14/22 Status: Ordered Hospital Bed See Instructions, # 1 each, Refills 0, Tot. Refills 0, Maintenance, [facility] DX: Left hip fracture, seizure dis, impulse control disorder, atypical autism. Duration ongoing NPI#[id number] Height: 5'6 Weight: 137lbs, 03/22/23 13:55:... Start Date: 03/22/23 Status: Ordered ibuprofen 600 mg oral tablet 600 mg, 1, tablet, By Mouth, Every 8 hours, PRN for pain, # 30 tablet, Refills 0, Tot. Refills 0, Maintenance, 02/08/24 12:44:00 EDT, Route to Pharmacy Electronically, [facility], Partial fill upon patient request if the prescription is for a adeline... Start Date: 02/08/24 Status: Ordered Milk of Magnesia 8% oral suspension See Instructions, TAKE 2 TABLESPOONFULS (30 ML) BY MOUTH AT BEDTIME NEEDED FOR CONSTIPATION ON DAY 3 OF NO BM / SEE BISCOLAX SUPP ORDER 30ML=2,400MG, # 300 mL, 5 Refills, Acute, [facility], 162.56, cm, 02/24/20 9:30:00 EDT, Height Start Date: 10/30/20 Status: Ordered MILLITRIUM TABLET See Instructions, 30, 11, 11, 06/20/08 13:07:29, TAKE 1 TABLET BY MOUTH DAILY (VITAMIN), [facility] [address] [place] [address], Constant Indicator, MILLITRIUM TABLET Start Date: 06/20/08 [...] tablet, 0 Refills, Maintenance, 10/03/23 8:50:00 EST, [facility], Partial fill upon patient request if the prescription... Start Date: 10/03/23 Status: Ordered Polysporin 500 u-82736 u/gm ointment See Instructions, APPLY A THIN LAYER TOPICALLY TWICE DAILY NEEDED TO RED, IRRITATED SKIN X 7 DAYS / SEE ANCILLARY ORDERS (BACITRACIN-POLYMYXIN OINTMENT), # 28.3 Gm, 5 Refills, Maintenance, 04/18/23 8:59:00 EDT, [facility], 7, APPLY A THIN LAYE... Start Date: 04/18/23 Status: Ordered pravastatin 40 mg oral tablet 1 tablet, By Mouth, Daily, IN PM FOR HYPERLIPIDEMIA., # 30 tablet, 5 Refills, Maintenance, 248:50:00 EST, [facility], 162.56, cm, 09/19/23 10:28:00 EST, Height Start Date: 10/02/23 Status: Ordered Profola oral tablet 1 tablet, By Mouth, Daily, # 30 tablet, 11 Refills, Maintenance, 05/19/23 10:41:00 EDT, [facility], Partial fill upon patient request if [...] tablet, 11 Refills, Maintenance, 10/26/23 8:49:00 EST, [facility], 162.56, cm, 10/03/23 9:00:00 EST, Height Start Date: 10/26/23 Status: Ordered SUDOGEST 30 MG TABLETS SUDOGEST 30 MG TABLETS, See Instructions, # 30 each, Refills 11, Tot. Refills 11, Maintenance, TAKE30 MG Q6H PRN PER DR CRANE FAX [phone], 02/01/19 9:46:36 EDT, Compound Start Date: 02/01/19 Status: Ordered Thera oral tablet 1 tablet, By Mouth, Daily in AM, VITAMIN., # 30 tablet, 5 Refills, Maintenance, 10/25/23 10:03:00 EST, [facility], 30, TAKE 1 TABLET BY MOUTH [...] mL, 1 Refills, Maintenance, 12/01/20 8:15:00 EST, [place], [facility], 1 sprays Topically 2 times a day, 162.56, cm, 02/24/20 9:30:00 EDT, Height Start Date: 12/01/20 Status: Ordered KAILYNIN KUSHAL FATIMA, See Instructions, # 420 mL, Refills 1, Tot. Refills 1, Maintenance, 10 ML PO Q4H PRN FORCOUGH AT BEDTIME PER DR CRANE FAX [phone], 05/22/20 8:48:00 EDT, [facility], 162.56, cm, 02/24/20 [...] Confirmed Active Vitamin D deficiency Confirmed Active 40079; repeat 2020 2colo 2005 nl, repeat 2015 3Colonoscopy 2016 positive polyp, repeat 2020. 4colo 2015 Social History Social History Type Response Smoking Status Never smoker entered on: 02/01/16 Sex Patient Care team information Care Team Personnel Name: Rosa Maria HUSTON, Schuyler Pope Position: [facility] Physician - Primary Care Member Role: PCP Address: Address: [address] [place] [address]- Care Team Related Persons Name: ELLE ALMEIDA Address: home [address] [place] [id number] Name: ZAK SHELL
--- OUTSIDE RECORDS SUMMARY | 2024-04-02 09:42 | XMS_ITS | Continuity of Care Document ---
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 Start Date: 08/31/21 Status: Ordered amLODIPine 10 mg oral tablet See Instructions, TAKE 1 TABLET (10 MG) BY MOUTH DAILY IN AM FOR HYPERTENSION, # 30 tablet, 5 Refills, [facility], 162.56, cm, 02/25/21 9:29:00 EDT, Height Start Date: 09/30/21 Status: Ordered ANTACID 500 MG CHEWABLE TAB ANTACID 500 MG CHEWABLE TAB, See Instructions, # 90 each, Refills 3, Tot. Refills 3, Maintenance, TAKE 1 TABLET PO TID FOR OSTEOPOROSIS. MAY CRUSH TABLET PER DR ROSA MARIA CRUZ [phone], 07/20/18 12:11:49EDT, Compound Start Date: 07/20/18 Status: Ordered bisacodyl 10 mg rectal suppository See Instructions, INSERT 1 SUPP (10MG) INTO RECTUM NEEDED IF MILK OF MAGNESIA INEFFECTIVE AFTER 8 HRS/BISAC- EVAC EQUIVALENT/ IF SUPPOSITORY INEFFECTIVE AFTER 4 HRS CALL MD, # 7 supp, 11 Refills, Acute, [facility], 162.56, cm, 02/25/21 9:29:00... Start Date: 04/15/21 Status: Ordered Blood Pressure Monitor See Instructions, 1, 0, 0, 06/11/07 11:11:37, PRN, HTN, ADS OPPTHS, [facility] [id number] [place] [address] Start Date: 06/11/07 Status: Ordered calcium carbonate 500 mg (200 mg elemental calcium) oral tablet, chewable 500 mg, 1, tablet, By Mouth, 3 times a day, PER DR CRANE, # 90 tablet, Refills 5, Tot. Refills 5, Maintenance, 09/29/21 14:35:00 EST, Route to Pharmacy Electronically, [facility], 162.56, cm, 02/25/21 9:29:00 EDT, Height Start Date: 09/29/21 Stop Date: 03/28/22 Status: Ordered cetirizine 10 mg oral tablet See Instructions, TAKE 1 TABLET (10 MG) BY MOUTH DAILY IN THE AM FOR SEASONAL ALLERGIES FROM DECEMBER THROUGH JUNE (START 12/24) SEE ANCILLARY ORDERS, # 30 tablet, 5 Refills, Maintenance, [facility], 162.56, cm, 02/25/21 9:29:00 EDT, He... Start Date: 02/25/21 Status: Ordered cetirizine 10 mg oral tablet 1 tablet, By Mouth, Daily in AM, FOR SEASONAL ALLERGIES FROM DECEMBER THROUGH JUNE (START 12/24) SEE ANCILLARY ORDERS., # 30 tablet, 5 Refills, Maintenance, 02/25/21 13:04:00 EDT, [facility], 162.56, cm, 02/25/21 9:29:00 EDT, Height [...] Gm, 11 Refills, Maintenance, 08/07/20 11:11:00 EST, [facility], 30, USE 1/4 INCH OF GEL TO BRUSH TEETH DAILY IN THE EVENING / BRUSH T... Start Date: 08/07/20 Status: Ordered docusate sodium 100 mg oral capsule See Instructions, TAKE 1 CAPSULE (100 MG) BY MOUTH TWICE DAILY FOR CONSTIPATION (DOCUSATE SODIUM 100 MG), # 60 capsule, 5 Refills, [facility], 162.56, cm, 02/25/21 9:29:00 EDT, Height Start Date: 07/23/21 Status: Ordered EARWAX TREATMENT DROPS 6.5% EARWAX TREATMENT DROPS 6.5%, See Instructions, # 1 each, Refills 11, Tot. Refills 11, Maintenance, USE DIRECTED FAX [phone], 12/02/20 14:40:00 EST, [facility], 162.56, cm, [...] 30ML=2,400MG, # 300 mL, 5 Refills, Acute, [facility], 162.56, cm, 02/24/20 9:30:00 EDT, Height Start Date: 10/30/20 Status: Ordered MILLITRIUM TABLET See Instructions, 30, 11, 11, 06/20/08 13:07:29, TAKE 1 TABLET BY MOUTH DAILY (VITAMIN), [facility] [address] [place] [address], Constant Indicator, MILLITRIUM TABLET Start Date: 06/20/08 [...] bid prn nasal dryness PER [facility] [employer] [facility] [employer] [facility] FAX [phone], 11/02/18 14:15:30 EST, Compound Start Date: 11/02/18 Status: Ordered Ocuflox 0.3% solution 2 drops, Eyes, Both, 4 times a day, # 10 mL, 0 Refills, Maintenance, 01/10/17 14:21:09, Ophth Solution, 2 drops Eyes, Both 4 times a day Start Date: 01/10/17 Status: Ordered Polysporin 500 u-23021 u/gm ointment See Instructions, APPLY A THIN LAYER TOPICALLY TWICE DAILY NEEDED TO RED, IRRITATED SKIN X 7 DAYS / SEE ANCILLARY ORDERS (BACITRACIN-POLYMYXIN OINTMENT), # 28.3 Gm, 5 Refills, Maintenance, 04/14/21 14:39:00 EDT, [facility], 7, APPLY A THIN LAY... Start Date: 04/14/21 Status: Ordered pravastatin 40 mg oral tablet 1 tablet, By Mouth, Daily, IN PM FOR HYPERLIPIDEMIA., # 30 tablet, 5 Refills, Maintenance, 09/03/2112:22:00 EST, [facility], 162.56, cm, 02/25/21 9:29:00 EDT, Height [...] IN THE EVENING FOR CONSTIPATION PER DR RCANE, # 100 tablet, Refills 6, Tot. Refills 6, Maintenance, for constipation, 08/27/20 14:07:00 EST, Instructions Replace Required Details, Route to Phar... Start Date: 08/27/20 Status: Ordered SUDOGEST 30 MG TABLETS SUDOGEST 30 MG TABLETS, See Instructions, # 30 each, Refills 11, Tot. Refills 11, Maintenance, TAKE30 MG Q6H PRN PER DR CRANE FAX [phone], 02/01/19 9:46:36 EDT, Compound Start Date: 02/01/19 Status: Ordered Suphedrin 30 mg oral tablet See Instructions, TAKE 1 TAB (30 MG) BY MOUTH EVERY 6 HRS NEEDED FOR NASAL CONGESTION/ SEE ANCILLARY ORDERS (SUDOGEST EQUIVALENT), # 30 tablet, 11 Refills, Acute, [facility], 162.56, cm, 02/24/20 9:30:00 EDT, Height Start Date: 05/22/20 Status: Ordered THERA CAPLETS THERA CAPLETS, See Instructions, # 30 each, Refills 5, Tot. Refills 5, Maintenance, TAKE ONE CAPLETBY MOUTH QD PER DR CRANE FAX [phone], 10/08/20 11:48:00 EST, [facility], 162.56, cm, 02/24/20 9:30:00 EDT, Height Start Date: 10/08/20 Status: Ordered Thera oral tablet 1 tablet, By Mouth, Daily in AM, VITAMIN., # 30 tablet, 5 Refills, Maintenance, 08/27/21 13:53:00 EST, [facility], 30, 1 tablet By Mouth Daily [...] mL, 1 Refills, Maintenance, 12/01/20 8:15:00 EST, [place], 1 sprays Topically 2 times a day, 162.56, cm, 02/24/20 9:30:00 EDT, Height Start Date: 12/01/20 Status: Ordered TUSSIN KUSHAL AVINAIN KUSHAL, See Instructions, # 420 mL, Refills 1, Tot. Refills 1, Maintenance, 10 ML PO Q4H PRN FORCOUGH AT BEDTIME PER DR CRANE FAX [phone], 05/22/20 8:48:00 EDT, [facility], 162.56, cm, 02/24/20 [...] Active Underweight(Confirmed) Active Vitamin D deficiency(Confirmed) Active 05992; repeat 2020 2colo 2005 nl, repeat 2015 3Colonoscopy 2016 positive polyp, repeat 2020. 4colo 2015 Social History Social History Type Response Smoking Status Never smoker entered on: 02/01/16 Sex
--- OUTSIDE RECORDS SUMMARY | 2024-04-02 09:42 | XMS_ITS | Continuity of Care Document ---
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# [id number] 2Result Comment: PCV23 - [facility]# [id number] 3Result Comment: [facility]# [id number] 4Result Comment: [10/28/2016] pharmacy 5Admin Note: given [...] 10/14/22 8:03:00 EST, Route to Pharmacy Electronically, [facility], 162.56, cm, 07/04/22 8:33:00 EDT, Height Start Date: 10/14/22 Status: Ordered acetaminophen 325 mg oral tablet 2, tablet, By Mouth, 2 times a day, PRN, # 20 tablet, Refills 0, Tot. Refills 0, Maintenance, NEEDED, 12/12/23 11:09:00 EDT, Route to Pharmacy Electronically, [facility], 162.56, cm, 12/11/2409:47:00 EDT, Height Start Date: 12/12/23 Stop Date: 12/17/23 Status: Ordered All Day Allergy 10 mg oral tablet 1 tablet, By Mouth, Daily in AM, FOR SEASONAL ALLERGIES FROM DECEMBER THROUGH JUNE (START 12/24 / ) SEE ANCILLARY ORDERS., # 30 tablet, 11 Refills, Maintenance, 12/21/23 7:45:00 EDT, [facility], 162.56, cm, 12/12/23 10:47:00 EDT, Height Start Date: 12/21/23 Status: Ordered amLODIPine 10 mg oral tablet 1 tablet, By Mouth, Daily in AM, FOR HYPERTENSION., # 30 tablet, 5 Refills, Maintenance, 10/25/23 0:22:00 EST, [facility], 162.56, cm, 10/03/23 9:00:00 EST, Height Start Date: 10/25/23 Status: Ordered ANTACID 500 MG CHEWABLE TAB ANTACID 500 MG CHEWABLE TAB, See Instructions, # 90 each, Refills 3, Tot. Refills 3, Maintenance, TAKE 1 TABLET PO TID FOR OSTEOPOROSIS. MAY CRUSH TABLET PER DR ROSA MARIA CRUZ [phone], 07/20/18 12:11:49EDT, Compound Start Date: 07/20/18 Status: Ordered benzonatate 100 mg oral capsule 1 capsule, By Mouth, 3 times a day, PRN NEEDED FOR COUGH / IF NO IMPROVEMENT IN 3 DAYS NOTIFY MD/ IC, JAGRUTI, # 21 capsule, 0 Refills, Maintenance, 10/05/23 12:01:00 EST, [facility], 162.56, cm, 10/03/23 9:00:00 EST, Height Start Date: 10/05/23 Status: Ordered bisacodyl 10 mg rectal suppository See Instructions, INSERT 1 SUPP (10MG) INTO RECTUM NEEDED IF MILK OF MAGNESIA INEFFECTIVE AFTER 8 HRS/BISAC- EVAC EQUIVALENT/ IF SUPPOSITORY INEFFECTIVE AFTER 4 HRS CALL MD, # 7 supp, 11 Refills, Acute, [facility], 162.56, cm, 02/25/21 9:29:00... Start Date: 04/15/21 Status: Ordered Blood Pressure Monitor See Instructions, 1, 0, 0, 06/11/07 11:11:37, PRN, HTN, ADS OPPTHS, [facility] [id number] [place] [address] Start Date: 06/11/07 Status: Ordered calcium carbonate 500 mg (200 mg elemental calcium) oral tablet, chewable 1, tablet, By Mouth, 3 times a day, CRUSH. IC: CALCIUM CARBONATE, # 90 tablet, Refills 5, Maintenance, 10/02/23 8:50:00 EST, Route to Pharmacy Electronically, [facility], 162.56, cm, 09/19/23 10:28:00 EST, Height Start Date: 10/02/23 Status: Ordered carbamide peroxide 6.5% otic solution See Instructions, INSTILL 4 DROPS INTO EACH EAR TWICE DAILY FOR 5 DAYS EACH MONTH / IC: CARBAMIDE PEROXIDE (EAR DROPS 6.5%), # 15 mL, 11 Refills, Maintenance, 09/01/23 9:17:00 EST, [facility], 30, INSTILL 4 DROPS INTO EACH [...] capsule, 5 Refills, Maintenance, 11/23/23 20:00:00 EST, [facility], 162.56, cm, 10/03/23 9:00:00 EST, Height Start Date: 11/23/23 Status: Ordered EARWAX TREATMENT DROPS 6.5% EARWAX TREATMENT DROPS 6.5%, See Instructions, # 1 each, Refills 11, Tot. Refills 11, Maintenance, USE DIRECTED FAX [phone], 12/02/20 14:40:00 EST, [facility], 162.56, cm, 02/24/20 9:30:00 EDT, Height Start Date: 12/02/20 Status: Ordered fluoride 1.1% topical gel See Instructions, USE 1/4 INCH OF GEL TO BRUSH TEETH DAILY IN THE EVENING / BRUSH THOROUGHLY ALONG GUMLINE IC: DENTAGEL, # 56 Gm, 11 Refills, Maintenance, 09/21/23 16:44:00 EST, [facility], 30, USE 1/4 INCH OF GEL TO BRUSH TEETH DAILY IN THE EVEN... Start Date: 09/21/23 Status: Ordered Carolyn-jag 8.6 mg oral tablet 1 tablet, By Mouth, Daily in PM, FOR CONSTIPATION / SEE MILK OF MAG ORDERS / IC: SENNA 8.6 MG, # 15tablet, 6 Refills, Maintenance, 10/14/22 8:03:00 EST, [facility], 162.56, cm, 07/04/22 8:33:00EDT, Height Start Date: 10/14/22 Status: Ordered Hospital Bed See Instructions, # 1 each, Refills 0, Tot. Refills 0, Maintenance, [facility] DX: Left hip fracture, seizure dis, impulse control disorder, atypical autism. Duration ongoing NPI#[id number] Height: 5'6 Weight: 137lbs, 03/22/23 13:55:... Start Date: 03/22/23 Status: Ordered ibuprofen 600 mg oral tablet 600 mg, 1, tablet, By Mouth, Every 8 hours, PRN for pain, # 30 tablet, Refills 0, Tot. Refills 0, Maintenance, 02/08/24 12:44:00 EDT, Route to Pharmacy Electronically, [facility], Partial fill upon patient request if the prescription is for a adeline... Start Date: 02/08/24 Status: Ordered Milk of Magnesia 8% oral suspension See Instructions, TAKE 2 TABLESPOONFULS (30 ML) BY MOUTH AT BEDTIME NEEDED FOR CONSTIPATION ON DAY 3 OF NO BM / SEE BISCOLAX SUPP ORDER 30ML=2,400MG, # 300 mL, 5 Refills, Acute, [facility], 162.56, cm, 02/24/20 9:30:00 EDT, Height Start Date: 10/30/20 Status: Ordered MILLITRIUM TABLET See Instructions, 30, 11, 11, 06/20/08 13:07:29, TAKE 1 TABLET BY MOUTH DAILY (VITAMIN), [facility] [address] [place] [address], Constant Indicator, MILLITRIUM TABLET Start Date: 06/20/08 [...] tablet, 0 Refills, Maintenance, 10/03/23 8:50:00 EST, [facility], Partial fill upon patient request if the prescription... Start Date: 10/03/23 Status: Ordered Polysporin 500 u-12297 u/gm ointment See Instructions, APPLY A THIN LAYER TOPICALLY TWICE DAILY NEEDED TO RED, IRRITATED SKIN X 7 DAYS / SEE ANCILLARY ORDERS (BACITRACIN-POLYMYXIN OINTMENT), # 28.3 Gm, 5 Refills, Maintenance, 04/18/23 8:59:00 EDT, [facility], 7, APPLY A THIN LAYE... Start Date: 04/18/23 Status: Ordered pravastatin 40 mg oral tablet 1 tablet, By Mouth, Daily, IN PM FOR HYPERLIPIDEMIA., # 30 tablet, 5 Refills, Maintenance, 248:50:00 EST, [facility], 162.56, cm, 09/19/23 10:28:00 EST, Height Start Date: 10/02/23 Status: Ordered Profola oral tablet 1 tablet, By Mouth, Daily, # 30 tablet, 11 Refills, Maintenance, 05/19/23 10:41:00 EDT, [facility], Partial fill upon patient request if [...] tablet, 11 Refills, Maintenance, 10/26/23 8:49:00 EST, [facility], 162.56, cm, 10/03/23 9:00:00 EST, Height Start Date: 10/26/23 Status: Ordered SUDOGEST 30 MG TABLETS SUDOGEST 30 MG TABLETS, See Instructions, # 30 each, Refills 11, Tot. Refills 11, Maintenance, TAKE30 MG Q6H PRN PER DR CRANE FAX [phone], 02/01/19 9:46:36 EDT, Compound Start Date: 02/01/19 Status: Ordered Thera oral tablet 1 tablet, By Mouth, Daily in AM, VITAMIN., # 30 tablet, 5 Refills, Maintenance, 10/25/23 10:03:00 EST, [facility], 30, TAKE 1 TABLET BY MOUTH [...] mL, 1 Refills, Maintenance, 12/01/20 8:15:00 EST, [place], [facility], 1 sprays Topically 2 times a day, 162.56, cm, 02/24/20 9:30:00 EDT, Height Start Date: 12/01/20 Status: Ordered KAILYNIN KUSHAL FATIMA, See Instructions, # 420 mL, Refills 1, Tot. Refills 1, Maintenance, 10 ML PO Q4H PRN FORCOUGH AT BEDTIME PER DR CRANE FAX [phone], 05/22/20 8:48:00 EDT, [facility], 162.56, cm, 02/24/20 [...] Confirmed Active Vitamin D deficiency Confirmed Active 06762; repeat 2020 2colo 2005 nl, repeat 2015 3Colonoscopy 2016 positive polyp, repeat 2020. 4colo 2015 Social History Social History Type Response Smoking Status Never smoker entered on: 02/01/16 Sex Patient Care team information Care Team Personnel Name: Rosa Maria HUSTON, Schuyler Pope Position: [facility] Physician - Primary Care Member Role: PCP Address: Address: [address] [place] [address]- Care Team Related Persons Name: ELLE ALMEIDA Address: home [address] [place] [id number] Name: ZAK SHELL
--- OUTSIDE RECORDS SUMMARY | 2024-04-02 09:42 | XMS_ITS | Continuity of Care Document ---
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 Name Role Phone Schuyler Crane MD Primary Care Physician [facility]): 12/12/23 - 01/11/24 [facility] Adult [address] [place] [address]- Attending Physician: Admtr, Ar8 Allergies, Adverse Reactions, [...] 08/25/04 Vishal muniz 1Result Comment: Td - [facility]# [id number] 2Result Comment: PCV23 - [facility]# [id number] 3Result Comment: [facility]# [id number] 4Result Comment: [10/28/2016] pharmacy 5Admin Note: given [...] 10/14/22 8:03:00 EST, Route to Pharmacy Electronically, [facility], 162.56, cm, 07/04/22 8:33:00 EDT, Height Start Date: 10/14/22 Status: Ordered acetaminophen 325 mg oral tablet 2, tablet, By Mouth, 2 times a day, PRN, # 20 tablet, Refills 0, Tot. Refills 0, Maintenance, NEEDED, 12/12/23 11:09:00 EDT, Route to Pharmacy Electronically, [facility], 162.56, cm, 12/11/2409:47:00 EDT, Height Start Date: 12/12/23 Stop Date: 12/17/23 Status: Ordered All Day Allergy 10 mg oral tablet 1 tablet, By Mouth, Daily in AM, FOR SEASONAL ALLERGIES FROM DECEMBER THROUGH JUNE (START 12/24 / END07/25) SEE ANCILLARY ORDERS., # 30 tablet, 11 Refills, Maintenance, 12/21/23 7:45:00 EDT, [facility], 162.56, cm, 12/12/23 10:47:00 EDT, Height Start Date: 12/21/23 Status: Ordered amLODIPine 10 mg oral tablet 1 tablet, By Mouth, Daily in AM, FOR HYPERTENSION., # 30 tablet, 5 Refills, Maintenance, 10/25/23 0:22:00 EST, [facility], 162.56, cm, 10/03/23 9:00:00 EST, Height Start Date: 10/25/23 Status: Ordered ANTACID 500 MG CHEWABLE TAB ANTACID 500 MG CHEWABLE TAB, See Instructions, # 90 each, Refills 3, Tot. Refills 3, Maintenance, TAKE 1 TABLET PO TID FOR OSTEOPOROSIS. MAY CRUSH TABLET PER DR ROSA MARIA CRUZ [phone], 07/20/18 12:11:49EDT, Compound Start Date: 07/20/18 Status: Ordered benzonatate 100 mg oral capsule 1 capsule, By Mouth, 3 times a day, PRN NEEDED FOR COUGH / IF NO IMPROVEMENT IN 3 DAYS NOTIFY / ICJAGRUTI, # 21 capsule, 0 Refills, Maintenance, 10/05/23 12:01:00 EST, [facility], 162.56, cm, 10/03/23 9:00:00 EST, Height Start Date: 10/05/23 Status: Ordered bisacodyl 10 mg rectal suppository See Instructions, INSERT 1 SUPP (10MG) INTO RECTUM NEEDED IF MILK OF MAGNESIA INEFFECTIVE AFTER 8 HRS/BISAC- EVAC EQUIVALENT/ IF SUPPOSITORY INEFFECTIVE AFTER 4 HRS CALL MD, # 7 supp, 11 Refills, Acute, [facility], 162.56, cm, 02/25/21 9:29:00... Start Date: 04/15/21 Status: Ordered Blood Pressure Monitor See Instructions, 1, 0, 0, 06/11/07 11:11:37, PRN, HTN, ADS OPPTHS, [facility] [id number] [place] [address] Start Date: 06/11/07 Status: Ordered calcium carbonate 500 mg (200 mg elemental calcium) oral tablet, chewable 1, tablet, By Mouth, 3 times a day, CRUSH. IC: CALCIUM CARBONATE, # 90 tablet, Refills 5, Maintenance, 10/02/23 8:50:00 EST, Route to Pharmacy Electronically, [facility], 162.56, cm, 09/19/23 10:28:00 EST, Height Start Date: 10/02/23 Status: Ordered carbamide peroxide 6.5% otic solution See Instructions, INSTILL 4 DROPS INTO EACH EAR TWICE DAILY FOR 5 DAYS EACH MONTH / IC: CARBAMIDE PEROXIDE (EAR DROPS 6.5%), # 15 mL, 11 Refills, Maintenance, 09/01/23 9:17:00 EST, [facility], 30, INSTILL 4 DROPS INTO EACH [...] capsule, 5 Refills, Maintenance, 11/23/23 20:00:00 EST, [facility], 162.56, cm, 10/03/23 9:00:00 EST, Height Start Date: 11/23/23 Status: Ordered EARWAX TREATMENT DROPS 6.5% EARWAX TREATMENT DROPS 6.5%, See Instructions, # 1 each, Refills 11, Tot. Refills 11, Maintenance, USE DIRECTED FAX [phone], 12/02/20 14:40:00 EST, [facility], 162.56, cm, 02/24/20 9:30:00 EDT, Height Start Date: 12/02/20 Status: Ordered fluoride 1.1% topical gel See Instructions, USE 1/4 INCH OF GEL TO BRUSH TEETH DAILY IN THE EVENING / BRUSH THOROUGHLY ALONG GUMLINE IC: DENTAGEL, # 56 Gm, 11 Refills, Maintenance, 09/21/23 16:44:00 EST, [facility], 30, USE 1/4 INCH OF GEL TO BRUSH TEETH DAILY IN THE EVEN... Start Date: 09/21/23 Status: Ordered Carolyn-jag 8.6 mg oral tablet 1 tablet, By Mouth, Daily in PM, FOR CONSTIPATION / SEE MILK OF MAG ORDERS / IC: SENNA 8.6 MG, # 15tablet, 6 Refills, Maintenance, 10/14/22 8:03:00 EST, [facility], 162.56, cm, 07/04/22 8:33:00EDT, Height Start Date: 10/14/22 Status: Ordered Hospital Bed See Instructions, # 1 each, Refills 0, Tot. Refills 0, Maintenance, [facility] DX: Left hip fracture, seizure dis, impulse control disorder, atypical autism. Duration ongoing NPI#[id number] Height: 5'6 Weight: 137lbs, 03/22/23 13:55:... Start Date: 03/22/23 Status: Ordered Milk of Magnesia 8% oral suspension See Instructions, TAKE 2 TABLESPOONFULS (30 ML) BY MOUTH AT BEDTIME NEEDED FOR CONSTIPATION ON DAY 3 OF NO BM / SEE BISCOLAX SUPP ORDER 30ML=2,400MG, # 300 mL, 5 Refills, Acute, [facility], 162.56, cm, 02/24/20 9:30:00 EDT, Height Start Date: 10/30/20 Status: Ordered MILLITRIUM TABLET See Instructions, 30, 11, 11, 06/20/08 13:07:29, TAKE 1 TABLET BY MOUTH DAILY (VITAMIN), [facility] [address] [place] [address], Constant Indicator, MILLITRIUM TABLET Start Date: 06/20/08 [...] 0 Refills, Maintenance, 10/03/23 8:50:00 EST, [facility], Partial fill upon patient request if the prescription... Start Date: 10/03/23 Status: Ordered Polysporin 500 u-74093 u/gm ointment See Instructions, APPLY A THIN LAYER TOPICALLY TWICE DAILY NEEDED TO RED, IRRITATED SKIN X 7 DAYS / SEE ANCILLARY ORDERS (BACITRACIN-POLYMYXIN OINTMENT), # 28.3 Gm, 5 Refills, Maintenance, 04/18/23 8:59:00 EDT, [facility], 7, APPLY A THIN LAYE... Start Date: 04/18/23 Status: Ordered pravastatin 40 mg oral tablet 1 tablet, By Mouth, Daily, IN PM FOR HYPERLIPIDEMIA., # 30 tablet, 5 Refills, Maintenance, 248:50:00 EST, [facility], 162.56, cm, 09/19/23 10:28:00 EST, Height Start Date: 10/02/23 Status: Ordered Profola oral tablet 1 tablet, By Mouth, Daily, # 30 tablet, 11 Refills, Maintenance, 05/19/23 10:41:00 EDT, [facility], Partial fill upon patient request if [...] tablet, 11 Refills, Maintenance, 10/26/23 8:49:00 EST, [facility], 162.56, cm, 10/03/23 9:00:00 EST, Height Start Date: 10/26/23 Status: Ordered SUDOGEST 30 MG TABLETS SUDOGEST 30 MG TABLETS, See Instructions, # 30 each, Refills 11, Tot. Refills 11, Maintenance, TAKE30 MG Q6H PRN PER DR CRANE FAX [phone], 02/01/19 9:46:36 EDT, Compound Start Date: 02/01/19 Status: Ordered Thera oral tablet 1 tablet, By Mouth, Daily in AM, VITAMIN., # 30 tablet, 5 Refills, Maintenance, 10/25/23 10:03:00 EST, [facility], 30, TAKE 1 TABLET BY MOUTH [...] mL, 1 Refills, Maintenance, 12/01/20 8:15:00 EST, [place], [facility], 1 sprays Topically 2 times a day, 162.56, cm, 02/24/20 9:30:00 EDT, Height Start Date: 12/01/20 Status: Ordered TUSSIN DM TUSSIN DM, See Instructions, # 420 mL, Refills 1, Tot. Refills 1, Maintenance, 10 ML PO Q4H PRN FORCOUGH AT BEDTIME PER DR CRANE FAX [phone], 05/22/20 8:48:00 EDT, [facility], 162.56, cm, 02/24/20 [...] Confirmed Active Vitamin D deficiency Confirmed Active 53026; repeat 2020 2colo 2006 nl, repeat 2015 [...] Event Display: Cardiovascular Results Scanned Authored Date: [id number] * Gely Spain: PERFORM Event Display: Cardiovascular Results Scanned Authored Date: Laboratory * Lesli Mejia: PERFORM Event Display: Laboratory Results Scanned Authored Date: [id number] * Gely Spain: PERFORM Event Display: Laboratory Results Scanned Authored Date: [id number] * Joann Bergeron: PERFORM Event Display: Laboratory Results Scanned Authored Date: [id number] Radiology * Event Display: X-Ray Pelvis, Non- BH Authored Date: * Rody Kilpatrick: PERFORM Event Display: Radiology Results Scanned Authored Date: [id number] * Gely Spain: PERFORM Event Display: Radiology Results Scanned Authored Date: [id number] * Anay Wang: PERFORM Event Display: Radiology Results Scanned Authored Date: [id number] Patient Care team information Care Team Personnel Name: cShuyler Crane MD Position: [facility] Physician - Primary Care Member Role: PCP Address: Address: [address] [place] [address]- Care Team Related Persons Name: ELLE ALMEIDA Address: [address] [address] Name: ZAK SHELL
--- OUTSIDE RECORDS SUMMARY | 2024-04-02 09:43 | XMS_ITS | Continuity of Care Document ---
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 Name Role Phone Schuyler Crane MD Primary Care Physician [phone] [facility]23 - 05/17/23 [facility] [place] [address] [place] [address]- Allergies, Adverse Reactions, Alerts Substance Reaction Severity [...] G cristy 1Result Comment: Td - [facility]# [id number] 2Result Comment: PCV23 - [facility]# [id number] 3Result Comment: [facility]# [id number] 4Result Comment: [10/28/2016] pharmacy 5Admin Note: given [...] 10/14/22 8:03:00 EST, Route to Pharmacy Electronically, [facility], 162.56, cm, 07/04/22 8:33:00 EDT, Height Start Date: 10/14/22 Status: Ordered All Day Allergy 10 mg oral tablet See Instructions, TAKE 1 TABLET (10 MG) BY MOUTH DAILY IN THE AM FOR SEASONAL ALLERGIES FROM DECEMBER THROUGH JUNE (START 12/24 / END 07/25) SEE ANCILLARY ORDERS, # 30 tablet, 2 Refills, Maintenance, 04/13/23 14:33:00 EDT, [facility], 162.56, cm, 0... Start Date: 04/13/23 Status: Ordered amLODIPine 10 mg oral tablet 1 tablet, By Mouth, Daily in AM, FOR HYPERTENSION., # 30 tablet, 5 Refills, Maintenance, 04/19/23 23:11:00 EDT, [facility], 162.56, cm, 04/10/23 7:35:00 EDT, Height Start Date: 04/19/23 Status: Ordered ANTACID 500 MG CHEWABLE TAB ANTACID 500 MG CHEWABLE TAB, See Instructions, # 90 each, Refills 3, Tot. Refills 3, Maintenance, TAKE 1 TABLET PO TID FOR OSTEOPOROSIS. MAY CRUSH TABLET PER DR ROSA MARIA CRUZ [phone], 07/20/18 12:11:49EDT, Compound Start Date: 07/20/18 Status: Ordered benzonatate 100 mg oral capsule 1 capsule, By Mouth, 3 times a day, PRN NEEDED FOR COUGH / IF NO IMPROVEMENT IN 3 DAYS NOTIFY MD/ IC, JAGRUTI, # 21 capsule, 0 Refills, Maintenance, 02/17/23 8:57:00 EDT, [facility], 162.56, cm, 07/04/22 8:33:00 EDT, Height Start Date: 02/17/23 Status: Ordered bisacodyl 10 mg rectal suppository See Instructions, INSERT 1 SUPP (10MG) INTO RECTUM NEEDED IF MILK OF MAGNESIA INEFFECTIVE AFTER 8 HRS/BISAC- EVAC EQUIVALENT/ IF SUPPOSITORY INEFFECTIVE AFTER 4 HRS CALL MD, # 7 supp, 11 Refills, Acute, [facility], 162.56, cm, 02/25/21 9:29:00... Start Date: 04/15/21 Status: Ordered Blood Pressure Monitor See Instructions, 1, 0, 0, 06/11/07 11:11:37, PRN, HTN, ADS OPPTHS, [facility] [place] [address] Start Date: 06/11/07 Status: Ordered calcium carbonate 500 mg (200 mg elemental calcium) oral tablet, chewable 1, tablet, By Mouth, 3 times a day, CRUSH. IC: CALCIUM CARBONATE, # 90 tablet, Refills 5, Maintenance, 02/17/23 8:57:00 EDT, Route to Pharmacy Electronically, [facility], 162.56, cm, 07/04/22 8:33:00 EDT, Height Start Date: 02/17/23 Status: Ordered carbamide peroxide 6.5% otic solution See Instructions, INSTILL 4 DROPS INTO EACH EAR TWICE DAILY FOR 5 DAYS EACH MONTH / IC: CARBAMIDE PEROXIDE (EAR DROPS 6.5%), # 15 mL, 11 Refills, Maintenance, 08/21/22 7:49:00 EST, [facility], 30, INSTILL 4 DROPS INTO EACH [...] capsule, 5 Refills, Maintenance, 10/20/22 6:09:00 EST, [facility], 162.56, cm, 07/04/22 8:33:00 EDT, Height Start Date: 10/20/22 Status: Ordered EARWAX TREATMENT DROPS 6.5% EARWAX TREATMENT DROPS 6.5%, See Instructions, # 1 each, Refills 11, Tot. Refills 11, Maintenance, USE DIRECTED FAX [phone], 12/02/20 14:40:00 EST, [facility], 162.56, cm, 02/24/20 9:30:00 EDT, Height Start Date: 12/02/20 Status: Ordered fluoride 1.1% topical gel See Instructions, USE 1/4 INCH OF GEL TO BRUSH TEETH DAILY IN THE EVENING / BRUSH THOROUGHLY ALONG GUMLINE IC: DENTAGEL, # 56 Gm, 11 Refills, [facility], 30, USE 1/4 INCH OF GEL TO BRUSH TEETH DAILY IN THE EVENING / BRUSH THOROUGHLY ALONG GUMLINE... Start Date: 01/28/22 Status: Ordered Carolyn-jag 8.6 mg oral tablet 1 tablet, By Mouth, Daily in PM, FOR CONSTIPATION / SEE MILK OF MAG ORDERS / IC: SENNA 8.6 MG, # 15tablet, 6 Refills, Maintenance, 10/14/22 8:03:00 EST, [facility], 162.56, cm, 07/04/22 8:33:00EDT, Height Start Date: 10/14/22 Status: Ordered Hospital Bed See Instructions, # 1 each, Refills 0, Tot. Refills 0, Maintenance, [facility] DX: Left hip fracture, seizure dis, impulse control disorder, atypical autism. Duration ongoing NPI#[id number] Height: 5'6 Weight: 137lbs, 03/22/23 13:55:... Start Date: 03/22/23 Status: Ordered Milk of Magnesia 8% oral suspension See Instructions, TAKE 2 TABLESPOONFULS (30 ML) BY MOUTH AT BEDTIME NEEDED FOR CONSTIPATION ON DAY 3 OF NO BM / SEE BISCOLAX SUPP ORDER 30ML=2,400MG, # 300 mL, 5 Refills, Acute, [facility], 162.56, cm, 02/24/20 9:30:00 EDT, Height Start Date: 10/30/20 Status: Ordered MILLITRIUM TABLET See Instructions, 30, 11, 11, 06/20/08 13:07:29, TAKE 1 TABLET BY MOUTH DAILY (VITAMIN), [address] [address], Constant Indicator, MILLITRIUM TABLET Start Date: 06/20/08 Status: Ordered OCEAN SALINE NASAL MIST OCEAN SALINE NASAL MIST, See Instructions, # 1 each, Refills 2, Tot. Refills 2, Maintenance, use bid prn nasal dryness, 11/06/18 9:57:36 EST, [facility] Start Date: 11/06/18 Status: Ordered Polysporin 500 u-99463 u/gm ointment See Instructions, APPLY A THIN LAYER TOPICALLY TWICE DAILY NEEDED TO RED, IRRITATED SKIN X 7 DAYS / SEE ANCILLARY ORDERS (BACITRACIN-POLYMYXIN OINTMENT), # 28.3 Gm, 5 Refills, Maintenance, 04/18/23 8:59:00 EDT, [facility], 7, APPLY A THIN LAYE... Start Date: 04/18/23 Status: Ordered pravastatin 40 mg oral tablet See Instructions, TAKE 1 TABLET (40 MG) BY MOUTH DAILY IN PM FOR HYPERLIPIDEMIA, # 30 tablet, 5 Refills, Maintenance, 02/17/23 13:00:00 EDT, [facility], 162.56, cm, 07/04/22 8:33:00 EDT, Height [...] (SUPHEDRIN EQUIVALENT), # 30 tablet, 11 Refills, [facility], 162.56, cm, 03/24/22 10:31:00 EDT, Height Start Date: 04/22/22 Status: Ordered SUDOGEST 30 MG TABLETS SUDOGEST 30 MG TABLETS, See Instructions, # 30 each, Refills 11, Tot. Refills 11, Maintenance, TAKE30 MG Q6H PRN PER DR CRANE FAX [phone], 02/01/19 9:46:36 EDT, [facility] Start Date: 02/01/19 Status: Ordered THERA CAPLETS THERA CAPLETS, See Instructions, # 30 each, Refills 5, Tot. Refills 5, Maintenance, TAKE ONE CAPLETBY MOUTH QD PER DR CRANE FAX [phone], 10/08/20 11:48:00 EST, [facility], 162.56, cm, 02/24/20 [...] mL, 1 Refills, Maintenance, 12/01/20 8:15:00 EST, [place], 1 sprays Topically 2 times a day, 162.56, cm, 02/24/20 9:30:00 EDT, Height Start Date: 12/01/20 Status: Ordered TUSSIN KUSHAL NULLSSHALEIGH FATIMA, See Instructions, # 420 mL, Refills 1, Tot. Refills 1, Maintenance, 10 ML PO Q4H PRN FORCOUGH AT BEDTIME PER DR CRANE FAX [phone], 05/22/20 8:48:00 EDT, [facility], 162.56, cm, 02/24/20 [...] Confirmed Active Vitamin D deficiency Confirmed Active 68454; repeat 2020 2colo 2005 nl, repeat 2015 3Colonoscopy 2016 positive polyp, repeat 2020. 4colo 2015 Social History Social History Type Response Smoking Status Never smoker entered on: 02/01/16 Sex Patient Care team information Care Team Personnel Name: Schuyler Crane MD Position: S Physician - Primary Care Member Role: PCP Address: Address: [address] [place] [address]- Care Team Related Persons Name: ELLE ALMEIDA Address: home [address] [place] [address] Name: ZAK SHELL
--- OUTSIDE RECORDS SUMMARY | 2024-04-02 09:43 | XMS_ITS | Continuity of Care Document ---
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 Refills 3, Maintenance, TAKE 1 TABLET PO TID FOR OSTEOPOROSIS. MAY CRUSH TABLET PER DR CRANE FX [phone], 07/20/18 12:11:49EDT, Compound Start Date: 07/20/18 Status: Ordered Bisco-Lax 10 mg rectal suppository See Instructions, INSERT 1 SUPP (10MG) INTO RECTUM NEEDED IF MILK OF MAGNESIA INEFFECTIVE AFTER 8 HRS/BISAC- EVAC EQUIVALENT/ IF SUPPOSITORY INEFFECTIVE AF, # 7 supp, 11 Refills, Acute, [facility], 162.56, cm, 02/24/20 9:30:00 EDT, Height Start Date: 03/30/20 Status: Ordered Blood Pressure Monitor See Instructions, 1, 0, 0, 06/11/07 11:11:37, PRN, HTN, ADS OPPTHS, [id number] [place] [address] Start Date: 06/11/07 Status: Ordered calcium carbonate 500 mg (200 mg elemental calcium) oral tablet, chewable 500 mg, 1, tablet, By Mouth, 3 times a day, for 30 days, PER DR CRANE, # 90 tablet, Refills 3, Tot. Refills 3, Hard Stop 04/02/21 14:35:00 EDT, 12/03/20 14:35:00 EST, Route to Pharmacy Electronically, [facility], 162.56, cm, 02/24/20 9:30:00 EDT, H... Start Date: 12/03/20 Stop Date: 04/02/21 Status: Ordered calcium carbonate 500 mg (200 mg elemental calcium) oral tablet, chewable 500 mg, 1, tablet, By Mouth, 3 times a day, PER DR CRANE, # 90 tablet, Refills 5, Tot. Refills 5, Maintenance, 04/02/21 14:35:00 EDT, Route to Pharmacy Electronically, [facility], 162.56, cm, 02/25/21 9:29:00 EDT, Height Start Date: 04/02/21 Stop Date: 09/29/21 Status: Ordered cetirizine 10 mg oral tablet See Instructions, TAKE 1 TABLET (10 MG) BY MOUTH DAILY IN THE AM FOR SEASONAL ALLERGIES FROM DECEMBER THROUGH JUNE (START 12/24) SEE ANCILLARY ORDERS, # 30 tablet, 5 Refills, Maintenance, [facility], 162.56, cm, 02/25/21 9:29:00 EDT, He... Start Date: 02/25/21 Status: Ordered cetirizine 10 mg oral tablet 1 tablet, By Mouth, Daily in AM, FOR SEASONAL ALLERGIES FROM DECEMBER THROUGH JUNE (START 12/24) SEE ANCILLARY ORDERS., # 30 tablet, 5 Refills, Maintenance, 02/25/21 13:04:00 EDT, [facility], 162.56, cm, 02/25/21 9:29:00 EDT, Height [...] Gm, 11 Refills, Maintenance, 08/07/20 11:11:00 EST, [facility], 30, USE 1/4 INCH OF GEL TO BRUSH TEETH DAILY IN THE EVENING / BRUSH T... Start Date: 08/07/20 Status: Ordered docusate sodium 100 mg oral capsule 1 capsule, By Mouth, 2 times a day, # 60 capsule, 5 Refills, Maintenance, 01/28/21 15:23:00 EDT, [facility], 162.56, cm, 02/24/20 9:30:00 EDT, Height Start Date: 01/28/21 Status: Ordered EARWAX TREATMENT DROPS 6.5% EARWAX TREATMENT DROPS 6.5%, See Instructions, # 1 each, Refills 11, Tot. Refills 11, Maintenance, USE DIRECTED FAX [phone], 12/02/20 14:40:00 EST, [facility], 162.56, cm, 02/24/20 9:30:00 EDT, Height Start Date: 12/02/20 Status: Ordered Milk of Magnesia 8% oral suspension See Instructions, TAKE 2 TABLESPOONFULS (30 ML) BY MOUTH AT BEDTIME NEEDED FOR CONSTIPATION ON DAY 3 OF NO BM / SEE BISCOLAX SUPP ORDER 30ML=2,400MG, # 300 mL, 5 Refills, Acute, [facility], 162.56, cm, 02/24/20 9:30:00 EDT, Height Start Date: 10/30/20 Status: Ordered MILLITRIUM TABLET See Instructions, 30, 11, 11, 06/20/08 13:07:29, TAKE 1 TABLET BY MOUTH DAILY (VITAMIN), [facility] [address] [place] [address], Constant Indicator, MILLITRIUM TABLET Start Date: 06/20/08 [...] bid prn nasal dryness PER [employer] FAX [phone], 11/02/18 14:15:30 EST, Compound Start Date: 11/02/18 Status: Ordered Ocuflox 0.3% solution 2 drops, Eyes, Both, 4 times a day, # 10 mL, 0 Refills, Maintenance, 01/10/17 14:21:09, Ophth Solution, 2 drops Eyes, Both 4 times a day Start Date: 01/10/17 Status: Ordered Polysporin 500 u-28123 u/gm ointment See Instructions, APPLY A THIN LAYER TOPICALLY TWICE DAILY NEEDED TO RED, IRRITATED SKIN X 7 DAYS / SEE ANCILLARY ORDERS (BACITRACIN-POLYMYXIN OINTMENT), # 28.3 Gm, 5 Refills, Acute, [facility], 7, APPLY A THIN LAYER TOPICALLY TWICE DAILY N... Start Date: 03/30/20 Status: Ordered Polysporin 500 u-79981 u/gm ointment See Instructions, APPLY A THIN LAYER TOPICALLY TWICE DAILY NEEDED TO RED, IRRITATED SKIN X 7 DAYS / SEE ANCILLARY ORDERS (BACITRACIN-POLYMYXIN OINTMENT), # 28.3 Gm, 5 Refills, Acute, [facility], 7, APPLY A THIN LAYER TOPICALLY TWICE DAILY N... Start Date: 03/30/20 Status: Ordered pravastatin 40 mg oral tablet 1 tablet, By Mouth, Daily, IN PM FOR HYPERLIPIDEMIA., # 30 tablet, 5 Refills, Maintenance, 03/05/2111:55:00 EDT, [facility], 162.56, cm, 02/25/21 9:29:00 EDT, Height [...] MG Q6H PRN PER DR CRANE FAX [phone], 02/01/19 9:46:36 EDT, Compound Start Date: 02/01/19 Status: Ordered Suphedrin 30 mg oral tablet See Instructions, TAKE 1 TAB (30 MG) BY MOUTH EVERY 6 HRS NEEDED FOR NASAL CONGESTION/ SEE ANCILLARY ORDERS (SUDOGEST EQUIVALENT), # 30 tablet, 11 Refills, Acute, [facility], 162.56, cm, 02/24/20 9:30:00 EDT, Height Start Date: 05/22/20 Status: Ordered THERA CAPLETS THERA CAPLETS, See Instructions, # 30 each, Refills 5, Tot. Refills 5, Maintenance, TAKE ONE CAPLETBY MOUTH QD PER DR CRANE FAX [phone], 10/08/20 11:48:00 EST, [facility], 162.56, cm, 02/24/20 9:30:00 EDT, Height Start Date: 10/08/20 Status: Ordered Thera oral tablet 1 tablet, By Mouth, Daily in AM, VITAMIN., # 30 tablet, 5 Refills, Maintenance, 03/05/21 11:55:00 EDT, [facility], 30, TAKE 1 TABLET BY MOUTH DAILY IN THE AM (VITAMIN), 162.56, cm, 02/25/21 9:29:00 EDT, Height Start Date: 03/05/21 Status: Ordered Tinactin 1% spray 1 sprays, Topically, 2 times a day, # 120 mL, 1 Refills, Maintenance, 12/01/20 8:15:00 EST, [place], [facility], 1 sprays Topically 2 times a day, 162.56, cm, 02/24/20 9:30:00 EDT, Height Start Date: 12/01/20 Status: Ordered TUSSIN DM TUSSIN DM, See Instructions, # 420 mL, Refills 1, Tot. Refills 1, Maintenance, 10 ML PO Q4H PRN FORCOUGH AT BEDTIME PER DR CRANE FAX [phone], 05/22/20 8:48:00 EDT, [facility], 162.56, cm, 02/24/20 9:30:00 EDT, Height Start Date: 05/22/20 Status: Ordered Tylenol 325 mg oral tablet 650 mg, 2, tablet, By Mouth, Every 4 hours, PER DR CRANE, # 168 tablet, Refills 5, Tot. Refills 5, Maintenance, 10/04/19 10:27:00 EST, Route to Pharmacy Electronically, [facility], 162.56, cm, 02/12/19 10:36:00 EDT, Height [...] Active Underweight(Confirmed) Active Vitamin D deficiency(Confirmed) Active 79355; repeat 2020 2colo 2006 nl, repeat 2015 3Colonoscopy 2016 positive polyp, repeat 2020. 4colo 2016 Social History Social History Type Response Smoking Status Never smoker entered on: 02/01/16 Sex
--- OUTSIDE RECORDS SUMMARY | 2024-04-02 09:43 | XMS_ITS | Continuity of Care Document ---
Author Organization [facility] Salvatore Todd lt Address [address] [place] [address]- Care Team Providers Care Birth Attendant Name Role Phone Schuyler Crane MD Primary Care Physician [facility] Date(s): 04/26/22 - 05/26/22 [facility] Adult [address] [place] [address]- Allergies, Adverse Reactions, Alerts Substance Reaction Severity [...] Adult (oldterm) 08/25/04 G cristy 1Result Comment: [facility]# [id number] 2Result Comment: [10/28/2016] pharmacy 3Admin Note: given [...] Replace Required Details, Route to Pharmacy Electronically, [facility], 162.56, cm, 02/25/21 9:29:00 EDT, He... Start Date: 08/31/21 Status: Ordered amLODIPine 10 mg oral tablet See Instructions, TAKE 1 TABLET (10 MG) BY MOUTH DAILY IN AM FOR HYPERTENSION, # 30 tablet, 5 Refills, [facility], 162.56, cm, 03/24/22 10:31:00 EDT, Height Start Date: 04/01/22 Status: Ordered ANTACID 500 MG CHEWABLE TAB ANTACID 500 MG CHEWABLE TAB, See Instructions, # 90 each, Refills 3, Tot. Refills 3, Maintenance, TAKE 1 TABLET PO TID FOR OSTEOPOROSIS. MAY CRUSH TABLET PER DR CRANE FX [phone], 07/20/18 12:11:49EDT, Compound Start Date: 07/20/18 Status: Ordered benzonatate 100 mg oral capsule 1 capsule, By Mouth, 3 times a day, PRN NEEDED FOR COUGH / IF NO IMPROVEMENT IN 3 DAYS NOTIFY / IC, JAGRUTI, # 21 capsule, 0 Refills, [facility], 162.56, cm, 12/06/21 13:34:00 EDT, Height [...] ADS OPPTHS, [facility] [id number] [place] [id number] Start Date: 06/11/07 Status: Ordered calcium carbonate 500 mg (200 mg elemental calcium) oral tablet, chewable See Instructions, TAKE 1 TABLET (500 MG) BY MOUTH 3 TIMES A DAY FOR OSTEOPOROSIS MAY CRUSH TABLET IC: CALCIUM CARBONATE, # 90 tablet, Refills 5, Instructions Replace Required Details, Route to Pharmacy Electronically, [facility], 162.56, cm, 11/23... Start Date: 02/25/22 Status: Ordered cetirizine 10 mg oral tablet 1 tablet, By Mouth, Daily in AM, FOR SEASONAL ALLERGIES FROM DECEMBER THROUGH JUNE (START 12/24) SEE ANCILLARY ORDERS., # 30 tablet, 5 Refills, [facility], 162.56, cm, 12/06/21 13:34:00 EDT, Height [...] 100 MG), # 60 capsule, 5 Refills, [facility], 162.56, cm, 12/06/21 13:34:00 EDT, Height Start Date: 01/13/22 Status: Ordered EARWAX TREATMENT DROPS 6.5% EARWAX TREATMENT DROPS 6.5%, See Instructions, # 1 each, Refills 11, Tot. Refills 11, Maintenance, USE DIRECTED FAX [phone], 12/02/20 14:40:00 EST, [facility];, [facility], 162.56, cm, [...] TAKE 1 TABLET BY MOUTH DAILY (VITAMIN), [facility] [address] [place] [id number], Constant Indicator, MILLITRIUM TABLET Start Date: 06/20/08 [...] bid prn nasal dryness PER DAWIT [employer]ORE[employer]LEMENTATION LEAD-C FAX [phone], 11/02/18 14:15:30 EST, Compound Start Date: 11/02/18 Status: Ordered Ocuflox 0.3% solution 2 drops, Eyes, Both, 4 times a day, # 10 mL, 0 Refills, Maintenance, 01/10/17 14:21:09, Ophth Solution, 2 drops Eyes, Both 4 times a day Start Date: 01/10/17 Status: Ordered Polysporin 500 u-47240 u/gm ointment See Instructions, APPLY A THIN LAYER TOPICALLY TWICE DAILY NEEDED TO RED, IRRITATED SKIN X 7 DAYS / SEE ANCILLARY ORDERS (BACITRACIN-POLYMYXIN OINTMENT), # 28.3 Gm, 5 Refills, Maintenance, 04/14/21 14:39:00 EDT, [facility], 7, APPLY A THIN LAY... Start Date: 04/14/21 Status: Ordered pravastatin 40 mg oral tablet 1 tablet, By Mouth, Daily, IN PM FOR HYPERLIPIDEMIA., # 30 tablet, 5 Refills, [facility], 162.56, cm, 12/06/21 13:34:00 EDT, Height [...] (SUPHEDRIN EQUIVALENT), # 30 tablet, 11 Refills, [facility], 162.56, cm, 03/24/22 10:31:00 EDT, Height Start Date: 04/22/22 Status: Ordered SUDOGEST 30 MG TABLETS SUDOGEST 30 MG TABLETS, See Instructions, # 30 each, Refills 11, Tot. Refills 11, Maintenance, TAKE30 MG Q6H PRN PER DR CRANE FAX [phone], 02/01/19 9:46:36 EDT, Compound Start Date: 02/01/19 Status: Ordered THERA CAPLETS THERA CAPLETS, See Instructions, # 30 each, Refills 5, Tot. Refills 5, Maintenance, TAKE ONE CAPLETBY MOUTH QD PER DR CRANE FAX [phone], 10/08/20 11:48:00 EST, [facility], 162.56, cm, 02/24/20 9:30:00 EDT, Height Start Date: 10/08/20 Status: Ordered Thera oral tablet See Instructions, TAKE 1 TABLET BY MOUTH DAILY IN THE AM (VITAMIN), # 30 tablet, 5 Refills, [facility], 30, TAKE 1 TABLET BY [...] mL, 1 Refills, Maintenance, 12/01/20 8:15:00 EST, [place], 1 sprays Topically 2 times a day, 162.56, cm, 02/24/20 9:30:00 EDT, Height Start Date: 12/01/20 Status: Ordered TUSSIN DM TUSSIN DM, See Instructions, # 420 mL, Refills 1, Tot. Refills 1, Maintenance, 10 ML PO Q4H PRN FORCOUGH AT BEDTIME PER DR CRANE FAX [phone], 05/22/20 8:48:00 EDT, [facility], 162.56, cm, 02/24/20 [...] Seizure disorder(Confirmed) Active Vitamin D deficiency(Confirmed) Active 02883; repeat 2020 2colo 2006 nl, repeat 2015 3Colonoscopy 2016 positive polyp, repeat 2020. 4colo 2015 Social History Social History Type Response Smoking Status Never smoker entered on: 02/01/16 Sex Care Team Personnel Name: Bisi HUSTON, Schuyler Pope Address: [address] [place] [id number]
--- OUTSIDE RECORDS SUMMARY | 2024-04-02 09:43 | XMS_ITS | Continuity of Care Document ---
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 Refills 3, Maintenance, TAKE 1 TABLET PO TID FOR OSTEOPOROSIS. MAY CRUSH TABLET PER DR CRANE FX [phone], 07/20/18 12:11:49EDT, Compound Start Date: 07/20/18 Status: Ordered Bisco-Lax 10 mg rectal suppository See Instructions, INSERT 1 SUPP (10MG) INTO RECTUM NEEDED IF MILK OF MAGNESIA INEFFECTIVE AFTER 8 HRS/BISAC- EVAC EQUIVALENT/ IF SUPPOSITORY INEFFECTIVE AF, # 7 supp, 11 Refills, Acute, [facility], 162.56, cm, 02/24/20 9:30:00 EDT, Height Start Date: 03/30/20 Status: Ordered Blood Pressure Monitor See Instructions, 1, 0, 0, 06/11/07 11:11:37, PRN, HTN, ADS OPPTHS, [facility] [id number] [place] [address] Start Date: 06/11/07 Status: Ordered calcium carbonate 500 mg (200 mg elemental calcium) oral tablet, chewable 500 mg, 1, tablet, By Mouth, 3 times a day, PER DR CRANE, # 90 tablet, Refills 5, Tot. Refills 5, Maintenance, 04/02/21 14:35:00 EDT, Route to Pharmacy Electronically, [facility], 162.56, cm, 02/25/21 9:29:00 EDT, Height Start Date: 04/02/21 Stop Date: 09/29/21 Status: Ordered cetirizine 10 mg oral tablet See Instructions, TAKE 1 TABLET (10 MG) BY MOUTH DAILY IN THE AM FOR SEASONAL ALLERGIES FROM DECEMBER THROUGH JUNE (START 12/24) SEE ANCILLARY ORDERS, # 30 tablet, 5 Refills, Maintenance, [facility], 162.56, cm, 02/25/21 9:29:00 EDT, He... Start Date: 02/25/21 Status: Ordered cetirizine 10 mg oral tablet 1 tablet, By Mouth, Daily in AM, FOR SEASONAL ALLERGIES FROM DECEMBER THROUGH JUNE (START 12/24) SEE ANCILLARY ORDERS., # 30 tablet, 5 Refills, Maintenance, 02/25/21 13:04:00 EDT, [facility], 162.56, cm, 02/25/21 9:29:00 EDT, Height [...] Gm, 11 Refills, Maintenance, 08/07/20 11:11:00 EST, [facility], 30, USE 1/4 INCH OF GEL TO BRUSH TEETH DAILY IN THE EVENING / BRUSH T... Start Date: 08/07/20 Status: Ordered docusate sodium 100 mg oral capsule 1 capsule, By Mouth, 2 times a day, # 60 capsule, 5 Refills, Maintenance, 01/28/21 15:23:00 EDT, [facility], 162.56, cm, 02/24/20 9:30:00 EDT, Height Start Date: 01/28/21 Status: Ordered EARWAX TREATMENT DROPS 6.5% EARWAX TREATMENT DROPS 6.5%, See Instructions, # 1 each, Refills 11, Tot. Refills 11, Maintenance, USE DIRECTED FAX [phone], 12/02/20 14:40:00 EST, [facility];, [facility], 162.56, cm, 02/24/20 9:30:00 EDT, Height Start Date: 12/02/20 Status: Ordered Milk of Magnesia 8% oral suspension See Instructions, TAKE 2 TABLESPOONFULS (30 ML) BY MOUTH AT BEDTIME NEEDED FOR CONSTIPATION ON DAY 3 OF NO BM / SEE BISCOLAX SUPP ORDER 30ML=2,400MG, # 300 mL, 5 Refills, Acute, [facility], 162.56, cm, 02/24/20 9:30:00 EDT, Height Start Date: 10/30/20 Status: Ordered MILLITRIUM TABLET See Instructions, 30, 11, 11, 06/20/08 13:07:29, TAKE 1 TABLET BY MOUTH DAILY (VITAMIN), [address] [address], Constant Indicator, MILLITRIUM TABLET Start Date: 06/20/08 [...] bid prn nasal dryness PER DAWIT STORE[employer] SP[employer] WELDER-C FAX [phone], 11/02/18 14:15:30 EST, Compound Start Date: 11/02/18 Status: Ordered Ocuflox 0.3% solution 2 drops, Eyes, Both, 4 times a day, # 10 mL, 0 Refills, Maintenance, 01/10/17 14:21:09, Ophth Solution, 2 drops Eyes, Both 4 times a day Start Date: 01/10/17 Status: Ordered Polysporin 500 u-89285 u/gm ointment See Instructions, APPLY A THIN LAYER TOPICALLY TWICE DAILY NEEDED TO RED, IRRITATED SKIN X 7 DAYS / SEE ANCILLARY ORDERS (BACITRACIN-POLYMYXIN OINTMENT), # 28.3 Gm, 5 Refills, Acute, [facility], 7, APPLY A THIN LAYER TOPICALLY TWICE DAILY N... Start Date: 03/30/20 Status: Ordered Polysporin 500 u-32218 u/gm ointment See Instructions, APPLY A THIN LAYER TOPICALLY TWICE DAILY NEEDED TO RED, IRRITATED SKIN X 7 DAYS / SEE ANCILLARY ORDERS (BACITRACIN-POLYMYXIN OINTMENT), # 28.3 Gm, 5 Refills, Acute, [facility], 7, APPLY A THIN LAYER TOPICALLY TWICE DAILY N... Start Date: 03/30/20 Status: Ordered pravastatin 40 mg oral tablet 1 tablet, By Mouth, Daily, IN PM FOR HYPERLIPIDEMIA., # 30 tablet, 5 Refills, Maintenance, 03/05/2111:55:00 EDT, [facility], 162.56, cm, 02/25/21 9:29:00 EDT, Height [...] MG Q6H PRN PER DR CRANE FAX [phone], 02/01/19 9:46:36 EDT, Compound Start Date: 02/01/19 Status: Ordered Suphedrin 30 mg oral tablet See Instructions, TAKE 1 TAB (30 MG) BY MOUTH EVERY 6 HRS NEEDED FOR NASAL CONGESTION/ SEE ANCILLARY ORDERS (SUDOGEST EQUIVALENT), # 30 tablet, 11 Refills, Acute, [facility], 162.56, cm, 02/24/20 9:30:00 EDT, Height Start Date: 05/22/20 Status: Ordered THERA CAPLETS THERA CAPLETS, See Instructions, # 30 each, Refills 5, Tot. Refills 5, Maintenance, TAKE ONE CAPLETBY MOUTH QD PER DR CRANE FAX [phone], 10/08/20 11:48:00 EST, [facility], 162.56, cm, 02/24/20 9:30:00 EDT, Height Start Date: 10/08/20 Status: Ordered Thera oral tablet 1 tablet, By Mouth, Daily in AM, VITAMIN., # 30 tablet, 5 Refills, Maintenance, 03/05/21 11:55:00 EDT, [facility], 30, TAKE 1 TABLET BY MOUTH DAILY IN THE AM (VITAMIN), 162.56, cm, 02/25/21 9:29:00 EDT, Height Start Date: 03/05/21 Status: Ordered Tinactin 1% spray 1 sprays, Topically, 2 times a day, # 120 mL, 1 Refills, Maintenance, 12/01/20 8:15:00 EST, [place], [facility], 1 sprays Topically 2 times a day, 162.56, cm, 02/24/20 9:30:00 EDT, Height Start Date: 12/01/20 Status: Ordered TUSSIN DM TUSSIN DM, See Instructions, # 420 mL, Refills 1, Tot. Refills 1, Maintenance, 10 ML PO Q4H PRN FORCOUGH AT BEDTIME PER DR CRANE FAX [phone], 05/22/20 8:48:00 EDT, [facility], 162.56, cm, 02/24/20 9:30:00 EDT, Height Start Date: 05/22/20 Status: Ordered Tylenol 325 mg oral tablet 650 mg, 2, tablet, By Mouth, Every 4 hours, PER DR CRANE, # 168 tablet, Refills 5, Tot. Refills 5, Maintenance, 10/04/19 10:27:00 EST, Route to Pharmacy Electronically, [facility], 162.56, cm, 02/12/19 10:36:00 EDT, Height [...] Active Underweight(Confirmed) Active Vitamin D deficiency(Confirmed) Active 10052; repeat 2020 2colo 2006 nl, repeat 2015 3Colonoscopy 2016 positive polyp, repeat 2020. 4colo 2015 Social History Social History Type Response Smoking Status Never smoker entered on: 02/01/16 Sex
--- OUTSIDE RECORDS SUMMARY | 2024-04-02 09:43 | XMS_ITS | Continuity of Care Document ---
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 Role Phone Schuyler Crane MD Primary Care Physician Encounter [facility] Date(s): 12/12/23 - 12/19/23 [facility] Adult [address] [place] [address]- Encounter Diagnosis Scalp laceration(Discharge Diagnosis) - 12/12/23 Concussion(Discharge Diagnosis) - 12/12/23 Urinary frequency(Discharge Diagnosis) - 12/12/23 Blister of skin(Discharge Diagnosis) - 12/12/23 Attending Physician: Not on Staff, Attending MD [...] 08/25/04 G iven 1Result Comment: Td - [facility]# [id number] 2Result Comment: PCV23 - [facility]# [id number] 3Result Comment: [facility]# [id number] 4Result Comment: [10/28/2016] pharmacy 5Admin Note: given [...] 10/14/22 8:03:00 EST, Route to Pharmacy Electronically, [facility], 162.56, cm, 07/04/22 8:33:00 EDT, Height Start Date: 10/14/22 Status: Ordered acetaminophen 325 mg oral tablet 2, tablet, By Mouth, 2 times a day, PRN, # 20 tablet, Refills 0, Tot. Refills 0, Maintenance, NEEDED, 12/12/23 11:09:00 EDT, Route to Pharmacy Electronically, [facility], 162.56, cm, 12/11/2409:47:00 EDT, Height Start Date: 12/12/23 Stop Date: 12/17/23 Status: Ordered All Day Allergy 10 mg oral tablet See Instructions, TAKE 1 TABLET (10 MG) BY MOUTH DAILY IN THE AM FOR SEASONAL ALLERGIES FROM DECEMBER THROUGH JUNE (START 12/24 / END 07/25) SEE ANCILLARY ORDERS, # 30 tablet, 2 Refills, Maintenance, 04/13/23 14:33:00 EDT, [facility], 162.56, cm, 0... Start Date: 04/13/23 Status: Ordered amLODIPine 10 mg oral tablet 1 tablet, By Mouth, Daily in AM, FOR HYPERTENSION., # 30 tablet, 5 Refills, Maintenance, 10/25/23 0:22:00 EST, [facility], 162.56, cm, 10/03/23 9:00:00 EST, Height Start Date: 10/25/23 Status: Ordered ANTACID 500 MG CHEWABLE TAB ANTACID 500 MG CHEWABLE TAB, See Instructions, # 90 each, Refills 3, Tot. Refills 3, Maintenance, TAKE 1 TABLET PO TID FOR OSTEOPOROSIS. MAY CRUSH TABLET PER DR CRANE FX [phone], 07/20/18 12:11:49EDT, Compound Start Date: 07/20/18 Status: Ordered benzonatate 100 mg oral capsule 1 capsule, By Mouth, 3 times a day, PRN NEEDED FOR COUGH / IF NO IMPROVEMENT IN 3 DAYS NOTIFY / JAGRUTI CLAY, # 21 capsule, 0 Refills, Maintenance, 10/05/23 12:01:00 EST, [facility], 162.56, cm, 10/03/23 9:00:00 EST, Height Start Date: 10/05/23 Status: Ordered bisacodyl 10 mg rectal suppository See Instructions, INSERT 1 SUPP (10MG) INTO RECTUM NEEDED IF MILK OF MAGNESIA INEFFECTIVE AFTER 8 HRS/BISAC- EVAC EQUIVALENT/ IF SUPPOSITORY INEFFECTIVE AFTER 4 HRS CALL MD, # 7 supp, 11 Refills, Acute, [facility], 162.56, cm, 02/25/21 9:29:00... Start Date: 04/15/21 Status: Ordered Blood Pressure Monitor See Instructions, 1, 0, 0, 06/11/07 11:11:37, PRN, HTN, ADS OPPTHS, [facility] [id number] [place] [address] Start Date: 06/11/07 Status: Ordered calcium carbonate 500 mg (200 mg elemental calcium) oral tablet, chewable 1, tablet, By Mouth, 3 times a day, CRUSH. IC: CALCIUM CARBONATE, # 90 tablet, Refills 5, Maintenance, 10/02/23 8:50:00 EST, Route to Pharmacy Electronically, [facility], 162.56, cm, 09/19/23 10:28:00 EST, Height Start Date: 10/02/23 Status: Ordered carbamide peroxide 6.5% otic solution See Instructions, INSTILL 4 DROPS INTO EACH EAR TWICE DAILY FOR 5 DAYS EACH MONTH / IC: CARBAMIDE PEROXIDE (EAR DROPS 6.5%), # 15 mL, 11 Refills, Maintenance, 09/01/23 9:17:00 EST, [facility], 30, INSTILL 4 DROPS INTO EACH [...] capsule, 5 Refills, Maintenance, 11/23/23 20:00:00 EST, [facility], 162.56, cm, 10/03/23 9:00:00 EST, Height Start Date: 11/23/23 Status: Ordered EARWAX TREATMENT DROPS 6.5% EARWAX TREATMENT DROPS 6.5%, See Instructions, # 1 each, Refills 11, Tot. Refills 11, Maintenance, USE DIRECTED FAX [phone], 12/02/20 14:40:00 EST, [facility], 162.56, cm, 02/24/20 9:30:00 EDT, Height Start Date: 12/02/20 Status: Ordered fluoride 1.1% topical gel See Instructions, USE 1/4 INCH OF GEL TO BRUSH TEETH DAILY IN THE EVENING / BRUSH THOROUGHLY ALONG GUMLINE IC: DENTAGEL, # 56 Gm, 11 Refills, Maintenance, 09/21/23 16:44:00 EST, [facility], 30, USE 1/4 INCH OF GEL TO BRUSH TEETH DAILY IN THE EVEN... Start Date: 09/21/23 Status: Ordered Carolyn-jag 8.6 mg oral tablet 1 tablet, By Mouth, Daily in PM, FOR CONSTIPATION / SEE MILK OF MAG ORDERS / IC: SENNA 8.6 MG, # 15tablet, 6 Refills, Maintenance, 10/14/22 8:03:00 EST, [facility], 162.56, cm, 07/04/22 8:33:00EDT, Height Start Date: 10/14/22 Status: Ordered Hospital Bed See Instructions, # 1 each, Refills 0, Tot. Refills 0, Maintenance, [facility] DX: Left hip fracture, seizure dis, impulse control disorder, atypical autism. Duration ongoing NPI#[id number] Height: 5'6 Weight: 137lbs, 03/22/23 13:55:... Start Date: 03/22/23 Status: Ordered Milk of Magnesia 8% oral suspension See Instructions, TAKE 2 TABLESPOONFULS (30 ML) BY MOUTH AT BEDTIME NEEDED FOR CONSTIPATION ON DAY 3 OF NO BM / SEE BISCOLAX SUPP ORDER 30ML=2,400MG, # 300 mL, 5 Refills, Acute, [facility], 162.56, cm, 02/24/20 9:30:00 EDT, Height Start Date: 10/30/20 Status: Ordered MILLITRIUM TABLET See Instructions, 30, 11, 11, 06/20/08 13:07:29, TAKE 1 TABLET BY MOUTH DAILY (VITAMIN), [facility] [address] [place] [address], Constant Indicator, MILLITRIUM TABLET Start Date: 06/20/08 [...] tablet, 0 Refills, Maintenance, 10/03/23 8:50:00 EST, [facility], Partial fill upon patient request if the prescription... Start Date: 10/03/23 Status: Ordered Polysporin 500 u-11791 u/gm ointment See Instructions, APPLY A THIN LAYER TOPICALLY TWICE DAILY NEEDED TO RED, IRRITATED SKIN X 7 DAYS / SEE ANCILLARY ORDERS (BACITRACIN-POLYMYXIN OINTMENT), # 28.3 Gm, 5 Refills, Maintenance, 04/18/23 8:59:00 EDT, [facility], 7, APPLY A THIN LAYE... Start Date: 04/18/23 Status: Ordered pravastatin 40 mg oral tablet 1 tablet, By Mouth, Daily, IN PM FOR HYPERLIPIDEMIA., # 30 tablet, 5 Refills, Maintenance, 248:50:00 EST, [facility], 162.56, cm, 09/19/23 10:28:00 EST, Height Start Date: 10/02/23 Status: Ordered Profola oral tablet 1 tablet, By Mouth, Daily, # 30 tablet, 11 Refills, Maintenance, 05/19/23 10:41:00 EDT, [facility], Partial fill upon patient request if [...] tablet, 11 Refills, Maintenance, 10/26/23 8:49:00 EST, [facility], 162.56, cm, 10/03/23 9:00:00 EST, Height Start Date: 10/26/23 Status: Ordered SUDOGEST 30 MG TABLETS SUDOGEST 30 MG TABLETS, See Instructions, # 30 each, Refills 11, Tot. Refills 11, Maintenance, TAKE30 MG Q6H PRN PER DR CRANE FAX [phone], 02/01/19 9:46:36 EDT, Compound Start Date: 02/01/19 Status: Ordered Thera oral tablet 1 tablet, By Mouth, Daily in AM, VITAMIN., # 30 tablet, 5 Refills, Maintenance, 10/25/23 10:03:00 EST, [facility], 30, TAKE 1 TABLET BY MOUTH [...] mL, 1 Refills, Maintenance, 12/01/20 8:15:00 EST, [place], [facility], 1 sprays Topically 2 times a day, 162.56, cm, 02/24/20 9:30:00 EDT, Height Start Date: 12/01/20 Status: Ordered JAMAL FATIMA, See Instructions, # 420 mL, Refills 1, Tot. Refills 1, Maintenance, 10 ML PO Q4H PRN FORCOUGH AT BEDTIME PER DR CRANE FAX [phone], 05/22/20 8:48:00 EDT, [facility], 162.56, cm, 02/24/20 [...] Confirmed Active Vitamin D deficiency Confirmed Active 54916; repeat 2020 2colo 2006 nl, repeat 2015 3Colonoscopy 2016 positive polyp, repeat 2020. 4colo 2015 Diagnosis Diagnosis Type Effective Dates Health Status Clinical Service Informant Scalp laceration Discharge Diagnosis 12/12/23 Concussion Discharge Diagnosis 12/12/23 Urinary frequency Discharge Diagnosis 12/12/23 Blister of skin Discharge Diagnosis 12/12/23 Vital Signs Most recent to oldest [Reference Range]: 1 Height 162.56 cm (12/12/23 10:47 AM) Blood Pressure [90-138/55-84 mm Hg] 122/ 64mm Hg (12/12/23 10:47 AM) Blood pressure sites Arm, left (12/12/23 10:47 AM) Social History Social History Type Response Smoking Status Never smoker entered on: 02/01/16 Sex Patient Care team information Care Team Personnel Name: Schuyler Crane MD Position: [facility] Physician - Primary Care Member Role: PCP Address: Address: [address] [place] [address]- Care Team Related Persons Name: ELLE ALMEIDA Address: home [address] [place] [address] Name: ZAK SHELL
--- OUTSIDE RECORDS SUMMARY | 2024-04-02 09:43 | XMS_ITS | Continuity of Care Document ---
Author Organization [facility] Salvatore Todd lt Address [address] [place] [address]- Care Team Providers Care Stuffed Casing Tier Name Role Phone Schuyler Crane MD Primary Care Physician [phone] Encounter [place] Date(s): 11/26/19 - 03/25/20 [facility] Adult [address] [place] [address]- [facility] Attending Physician: Zoe Mckee NP Referring Physician: Schuyler Crane MD Allergies, Adverse [...] THROUGH JUNE START 12/24/18 / END 07/25/19, [facility] Start Date: 06/02/19 Status: Ordered amLODIPine 10 mg oral tablet 10 mg, 1, tablet, By Mouth, Daily, # 90 tablet, Refills 1, Tot. Refills 1, Soft Stop, 10/02/19 14:12:00 EST, Route to Pharmacy Electronically, [facility], 162.56, cm, 02/12/19 10:36:00 EDT, Height Start Date: 10/02/19 Status: Ordered ANTACID 500 MG CHEWABLE TAB ANTACID 500 MG CHEWABLE TAB, See Instructions, # 90 each, Refills 3, Tot. Refills 3, Maintenance, TAKE 1 TABLET PO TID FOR OSTEOPOROSIS. MAY CRUSH TABLET PER DR CRANE FX [phone], 07/20/18 12:11:49EDT, Compound Start Date: 07/20/18 Status: Ordered bacitracin-polymyxin B topical 500 u-84889 u/gm ointment 1 applicator, Topically, 2 times [...] 0, 06/11/07 11:11:37, PRN, HTN, ADS OPPTHS, [facility] [id number] [place] [address] [place] [address] Start Date: 06/11/07 Status: Ordered calcium carbonate 500 mg (200 mg elemental calcium) oral tablet, chewable 500 mg, 1, tablet, By Mouth, 3 times a day, PER DR CRANE, # 90 tablet, Refills 11, Tot. Refills 11, Maintenance, 12/09/19 14:35:00 EDT, Route to Pharmacy Electronically, [facility], 162.56, cm, 02/12/19 10:36:00 EDT, Height [...] 02/06/20 12:14:00 EDT, Route to Pharmacy Electronically, [facility], 162.56, cm, 02/12/19 10:36:00 EDT, Height [...] Tot. Refills 11, Maintenance, USE DIRECTED FAX [phone], 10/01/19 11:14:00 EST, [facility];, Compound Start Date: [...] TAKE 1 TABLET BY MOUTH DAILY (VITAMIN), [facility] [address] [place] [address], Constant Indicator, MILLITRIUM TABLET Start Date: 06/20/08 [...] each nostril bid prn nasal dryness PER ZOE MCKEE FOOD AND NUTRITION SERVICES ASSISTANT-C FAX [phone], 11/02/18 14:15:30 EST, Compound Start Date: 11/02/18 [...] tablet, 1 Refills, Maintenance, 03/12/20 12:59:00 EDT, [facility], 162.56, cm, 02/24/20 9:30:00 EDT, Height [...] MG Q6H PRN PER DR CRANE FAX [phone], 02/01/19 9:46:36 EDT, Compound Start Date: 02/01/19 Status: Ordered THERA CAPLETS THERA CAPLETS, See Instructions, # 30 each, Refills 5, Tot. Refills 5, Maintenance, TAKE ONE CAPLETBY MOUTH QD PER DR CRANE FAX [phone], 03/12/20 12:59:00 EDT, Compound, 162.56, cm, 02/24/20 9:30:00 EDT, Height Start Date: 03/12/20 Status: Ordered Tinactin 1% spray 1 sprays, Topically, 2 times a day, # 120 mL, 1 Refills, Maintenance, 11/01/19 10:28:00 EST, [facility], 1 sprays Topically 2 times a day, 162.56, cm, 02/12/19 10:36:00 EDT, Height Start Date: 11/01/19 Status: Ordered TUSSIN DM JAMAL DM, See Instructions, # 420 mL, Refills 1, Tot. Refills 1, Maintenance, 10 ML PO Q4H PRN FORCOUGH AT BEDTIME PER DR CRANE FAX [phone], 04/23/18 12:14:04 EDT, Compound Start Date: 04/23/18 Status: Ordered Tylenol 325 mg oral tablet 650 mg, 2, tablet, By Mouth, Every 4 hours, PER DR CRANE, # 168 tablet, Refills 5, Tot. Refills 5, Maintenance, 10/04/19 10:27:00 EST, Route to Pharmacy Electronically, [facility], 162.56, cm, 02/12/19 10:36:00 EDT, Height [...] Active Underweight(Confirmed) Active Vitamin D deficiency(Confirmed) Active 28466; repeat 2020 2colo 2006 nl, repeat 2015 3Colonoscopy 2016 positive polyp, repeat 2020. 4colo 2015 Social History Social History Type Response Smoking Status Never smoker entered on: 02/01/16 Sex
--- OUTSIDE RECORDS SUMMARY | 2024-04-02 09:43 | XMS_ITS | Continuity of Care Document ---
Author Organization [facility] Salvatore Todd lt Address [address] [place] [address]- Care Team Providers Care Work Adjustment Instructor Name Role Phone Schuyler Crane MD Primary Care Physician [phone] [facility] Date[facility]): 08/25/22 - 09/24/22 [facility] Adult [address] [place] [address]- Allergies, Adverse Reactions, Alerts Substance Reaction Severity [...] Adult (oldterm) 08/25/04 G cristy 1Result Comment: [facility]# [id number] 2Result Comment: [10/28/2016] pharmacy 3Admin Note: given [...] Replace Required Details, Route to Pharmacy Electronically, [facility], 162.56, cm, 02/25/21 9:29:00 EDT, He... Start Date: 08/31/21 Status: Ordered All Day Allergy 10 mg oral tablet See Instructions, TAKE 1 TABLET (10 MG) BY MOUTH DAILY IN THE AM FOR SEASONAL ALLERGIES FROM DECEMBER THROUGH JUNE (START 12/24 / END 07/25) SEE ANCILLARY ORDERS, # 30 tablet, 2 Refills, Maintenance, 07/22/22 15:15:00 EDT, [facility], 162.56, cm, 1... Start Date: 07/22/22 Status: Ordered amLODIPine 10 mg oral tablet See Instructions, TAKE 1 TABLET (10 MG) BY MOUTH DAILY IN AM FOR HYPERTENSION, # 30 tablet, 5 Refills, [facility], 162.56, cm, 03/24/22 10:31:00 EDT, Height Start Date: 04/01/22 Status: Ordered ANTACID 500 MG CHEWABLE TAB ANTACID 500 MG CHEWABLE TAB, See Instructions, # 90 each, Refills 3, Tot. Refills 3, Maintenance, TAKE 1 TABLET PO TID FOR OSTEOPOROSIS. MAY CRUSH TABLET PER DR ROSA MARIA CRUZ [phone], 07/20/18 12:11:49EDT, Compound Start Date: 07/20/18 Status: Ordered benzonatate 100 mg oral capsule 1 capsule, By Mouth, 3 times a day, PRN NEEDED FOR COUGH / IF NO IMPROVEMENT IN 3 DAYS NOTIFY MD/ IC, JAGRUTI, # 21 capsule, 0 Refills, [facility], 162.56, cm, 12/06/21 13:34:00 EDT, Height Start Date: 02/25/22 Status: Ordered bisacodyl 10 mg rectal suppository See Instructions, INSERT 1 SUPP (10MG) INTO RECTUM NEEDED IF MILK OF MAGNESIA INEFFECTIVE AFTER 8 HRS/BISAC- EVAC EQUIVALENT/ IF SUPPOSITORY INEFFECTIVE AFTER 4 HRS CALL MD, # 7 supp, 11 Refills, Acute, [facility], 162.56, cm, 02/25/21 9:29:00... Start Date: 04/15/21 Status: Ordered Blood Pressure Monitor See Instructions, 1, 0, 0, 06/11/07 11:11:37, PRN, HTN, ADS OPPTHS, [facility] [id number] [place] [address] Start Date: 06/11/07 Status: Ordered calcium carbonate [...] mL, 11 Refills, Maintenance, 08/21/22 7:49:00 EST, [facility], 30, INSTILL 4 DROPS INTO EACH [...] capsule, 2 Refills, Maintenance, 07/22/22 15:15:00 EDT, [facility], 162.56, cm, 07/04/22 8:33:00 EDT, Height Start Date: 07/22/22 Status: Ordered EARWAX TREATMENT DROPS 6.5% EARWAX TREATMENT DROPS 6.5%, See Instructions, # 1 each, Refills 11, Tot. Refills 11, Maintenance, USE DIRECTED FAX [phone], 12/02/20 14:40:00 EST, [facility];, Compound, 162.56, cm, 02/24/20 9:30:00 EDT, Height Start Date: 12/02/20 Status: Ordered fluoride 1.1% topical gel See Instructions, USE 1/4 INCH OF GEL TO BRUSH TEETH DAILY IN THE EVENING / BRUSH THOROUGHLY ALONG GUMLINE IC: DENTAGEL, # 56 Gm, 11 Refills, [facility], 30, USE 1/4 INCH OF GEL [...] 30ML=2,400MG, # 300 mL, 5 Refills, Acute, [facility], 162.56, cm, 02/24/20 9:30:00 EDT, Height Start Date: 10/30/20 Status: Ordered MILLITRIUM TABLET See Instructions, 30, 11, 11, 06/20/08 13:07:29, TAKE 1 TABLET BY MOUTH DAILY (VITAMIN), [facility] [address] [place] [address], Constant Indicator, MILLITRIUM TABLET Start Date: 06/20/08 [...] prn nasal dryness PER DAWIT STOREY SENIOR REACTOR OPERATOR-C FAX [phone], 11/02/18 14:15:30 EST, Compound Start Date: 11/02/18 Status: Ordered Ocuflox 0.3% solution 2 drops, Eyes, Both, 4 times a day, # 10 mL, 0 Refills, Maintenance, 01/10/17 14:21:09, Ophth Solution, 2 drops Eyes, Both 4 times a day Start Date: 01/10/17 Status: Ordered Polysporin 500 u-43160 u/gm ointment See Instructions, APPLY A THIN LAYER TOPICALLY TWICE DAILY NEEDED TO RED, IRRITATED SKIN X 7 DAYS / SEE ANCILLARY ORDERS (BACITRACIN-POLYMYXIN OINTMENT), # 28.3 Gm, 5 Refills, Maintenance, 04/14/21 14:39:00 EDT, [facility], 7, APPLY A THIN LAY... Start Date: 04/14/21 Status: Ordered pravastatin 40 mg oral tablet See Instructions, TAKE 1 TABLET (40 MG) BY MOUTH DAILY IN PM FOR HYPERLIPIDEMIA, # 30 tablet, 5 Refills, Maintenance, 08/21/22 14:03:00 EST, [facility], 162.56, cm, 07/04/22 8:33:00 EDT, Height [...] (SUPHEDRIN EQUIVALENT), # 30 tablet, 11 Refills, [facility], 162.56, cm, 03/24/22 10:31:00 EDT, Height Start Date: 04/22/22 Status: Ordered SUDOGEST 30 MG TABLETS SUDOGEST 30 MG TABLETS, See Instructions, # 30 each, Refills 11, Tot. Refills 11, Maintenance, TAKE30 MG Q6H PRN PER DR CRANE FAX [phone], 02/01/19 9:46:36 EDT, Compound Start Date: 02/01/19 Status: Ordered THERA CAPLETS THERA CAPLETS, See Instructions, # 30 each, Refills 5, Tot. Refills 5, Maintenance, TAKE ONE CAPLETBY MOUTH QD PER DR CRANE FAX [phone], 10/08/20 11:48:00 EST, Compound, 162.56, cm, 02/24/20 9:30:00 EDT, Height Start Date: 10/08/20 Status: Ordered Thera oral tablet See Instructions, TAKE 1 TABLET BY MOUTH DAILY IN THE AM (VITAMIN), # 30 tablet, 5 Refills, Maintenance, 08/25/22 14:03:00 EST, [facility], 30, TAKE 1 TABLET BY MOUTH [...] mL, 1 Refills, Maintenance, 12/01/20 8:15:00 EST, [place], [facility], 1 sprays Topically 2 times a day, 162.56, cm, 02/24/20 9:30:00 EDT, Height Start Date: 12/01/20 Status: Ordered JAMAL FATIMA, See Instructions, # 420 mL, Refills 1, Tot. Refills 1, Maintenance, 10 ML PO Q4H PRN FORCOUGH AT BEDTIME PER DR CRANE FAX [phone], 05/22/20 8:48:00 EDT, Compound, 162.56, cm, 02/24/20 [...] Confirmed Active Vitamin D deficiency Confirmed Active 24680; repeat 2020 2colo 2006 nl, repeat 2016 3Colonoscopy 2016 positive polyp, repeat 2020. 4colo 2016 Social History Social History Type Response Smoking Status Never smoker entered on: 02/01/16 Sex Patient Care team information Care Team Personnel Name: Rosa Maria HUSTON, Schuyler Pope Position: [facility] Primary Care Physician Member Role: PCP Address: Address: [address] [place] [address]- Care Team Related Persons Name: ELLE ALMEIDA Address: home [address] [place] [id number] Name: ZAK SHELL
--- OUTSIDE RECORDS SUMMARY | 2024-04-02 09:43 | XMS_ITS | Continuity of Care Document ---
Author Organization [facility] Salvatore Todd lt Address [address] [place] [address]- Care Team Providers Care Collector Of Internal Revenue Name Role Phone Schuyler Crane MD Primary Care Physician [facility] Date[facility]s): 05/21/20 - 06/20/20 [facility] Adult [address] [place] [address]- [facility] Allergies, Adverse Reactions, Alerts Substance Reaction [...] 5 Refills, Soft Stop, 04/03/20 16:18:00 EDT, [facility], 162.56, cm, 02/24/20 9:30:00 EDT, Height Start Date: 04/03/20 Status: Ordered amLODIPine 10 mg oral tablet 10 mg, 1, tablet, By Mouth, Daily, # 90 tablet, Refills 1, Tot. Refills 1, Soft Stop, 04/09/20 13:02:00 EDT, Route to Pharmacy Electronically, [facility], 162.56, cm, 02/24/20 9:30:00 EDT, Height Start Date: 04/09/20 Status: Ordered ANTACID 500 MG CHEWABLE TAB ANTACID 500 MG CHEWABLE TAB, See Instructions, # 90 each, Refills 3, Tot. Refills 3, Maintenance, TAKE 1 TABLET PO TID FOR OSTEOPOROSIS. MAY CRUSH TABLET PER DR CRANE FX [phone], 07/20/18 12:11:49EDT, Compound Start Date: 07/20/18 Status: Ordered Bisco-Lax 10 mg rectal suppository See Instructions, INSERT 1 SUPP (10MG) INTO RECTUM NEEDED IF MILK OF MAGNESIA INEFFECTIVE AFTER 8 HRS/BISAC- EVAC EQUIVALENT/ IF SUPPOSITORY INEFFECTIVE AF, # 7 supp, 11 Refills, Acute, [facility], 162.56, cm, 02/24/20 9:30:00 EDT, Height Start Date: 03/30/20 Status: Ordered Blood Pressure Monitor See Instructions, 1, 0, 0, 06/11/07 11:11:37, PRN, HTN, ADS OPPTHS, [facility] [address] [place] [address] Start Date: 06/11/07 Status: Ordered calcium carbonate 500 mg (200 mg elemental calcium) oral tablet, chewable 500 mg, 1, tablet, By Mouth, 3 times a day, PER DR CRANE, # 90 tablet, Refills 11, Tot. Refills 11, Maintenance, 12/09/19 14:35:00 EDT, Route to Pharmacy Electronically, [facility], 162.56, cm, 02/12/19 10:36:00 EDT, Height [...] 02/06/20 12:14:00 EDT, Route to Pharmacy Electronically, [facility], 162.56, cm, 02/12/19 10:36:00 EDT, Height [...] Tot. Refills 11, Maintenance, USE DIRECTED FAX [phone], 10/01/19 11:14:00 EST, [facility];, Compound Start Date: [...] TAKE 1 TABLET BY MOUTH DAILY (VITAMIN), [facility] [address] [place] [address], Constant Indicator, MILLITRIUM TABLET Start Date: 06/20/08 [...] bid prn nasal dryness PER DAWIT STOREY TRAP OPERATOR-C FAX [phone], 11/02/18 14:15:30 EST, Compound Start Date: 11/02/18 Status: Ordered Ocuflox 0.3% solution 2 drops, Eyes, Both, 4 times a day, # 10 mL, 0 Refills, Maintenance, 01/10/17 14:21:09, Ophth Solution, 2 drops Eyes, Both 4 times a day Start Date: 01/10/17 Status: Ordered Polysporin 500 u-82564 u/gm ointment See Instructions, APPLY A THIN LAYER TOPICALLY TWICE DAILY NEEDED TO RED, IRRITATED SKIN X 7 DAYS / SEE ANCILLARY ORDERS (BACITRACIN-POLYMYXIN OINTMENT), # 28.3 Gm, 5 Refills, Acute, [facility], 7, APPLY A THIN LAYER TOPICALLY TWICE DAILY N... Start Date: 03/30/20 Status: Ordered Polysporin 500 u-03214 u/gm ointment See Instructions, APPLY A THIN [...] MG Q6H PRN PER DR CRANE FAX [phone], 02/01/19 9:46:36 EDT, Compound Start Date: 02/01/19 Status: Ordered Suphedrin 30 mg oral tablet See Instructions, TAKE 1 TAB (30 MG) BY MOUTH EVERY 6 HRS NEEDED FOR NASAL CONGESTION/ SEE ANCILLARY ORDERS (SUDOGEST EQUIVALENT), # 30 tablet, 11 Refills, Acute, [facility], 162.56, cm, 02/24/20 9:30:00 EDT, Height Start Date: 05/22/20 Status: Ordered THERA CAPLETS THERA CAPLETS, See Instructions, # 30 each, Refills 5, Tot. Refills 5, Maintenance, TAKE ONE CAPLETBY MOUTH QD PER DR CRANE FAX [phone], 03/12/20 12:59:00 EDT, Compound, 162.56, cm, 02/24/20 9:30:00 EDT, Height Start Date: 03/12/20 Status: Ordered Tinactin 1% spray 1 sprays, Topically, 2 times a day, # 120 mL, 1 Refills, Maintenance, 11/01/19 10:28:00 EST, [place], 1 sprays Topically 2 times a day, 162.56, cm, 02/12/19 10:36:00 EDT, Height Start Date: 11/01/19 Status: Ordered CHAKASSIN KUSHAL FATIMA, See Instructions, # 420 mL, Refills 1, Tot. Refills 1, Maintenance, 10 ML PO Q4H PRN FORCOUGH AT BEDTIME PER DR CRANE FAX [phone], 05/22/20 8:48:00 EDT, [facility], 162.56, cm, 02/24/20 9:30:00 EDT, Height Start Date: 05/22/20 Status: Ordered Tylenol 325 mg oral tablet 650 mg, 2, tablet, By Mouth, Every 4 hours, PER DR CRANE, # 168 tablet, Refills 5, Tot. Refills 5, Maintenance, 10/04/19 10:27:00 EST, Route to Pharmacy Electronically, [facility], 162.56, cm, 02/12/19 10:36:00 EDT, Height [...] Active Underweight(Confirmed) Active Vitamin D deficiency(Confirmed) Active 03747; repeat 2020 2colo 2006 nl, repeat 2015 3Colonoscopy 2016 positive polyp, repeat 2020. 4colo 2015 Social History Social History Type Response Smoking Status Never smoker entered on: 02/01/16 Sex
--- OUTSIDE RECORDS SUMMARY | 2024-04-02 09:43 | XMS_ITS | Continuity of Care Document ---
Author Organization [facility] Salvatore Todd lt Address [address] [place] [address]- Care Team Providers Care Mechanical Detailer Name Role Phone Schuyler Crane MD Primary Care Physician [facility] Date[facility]s): 02/17/23 - 03/19/23 [facility] Adult [address] [place] [address]- Allergies, Adverse Reactions, Alerts Substance Reaction Severity [...] 08/25/04 G cristy 1Result Comment: T[facility] - [facility]# [id number] 2Result Comment: PCV23 - [facility]# [id number] 3Result Comment: [facility]# [id number] 4Result Comment: [10/28/2016] pharmacy 5Admin Note: given [...] 10/14/22 8:03:00 EST, Route to Pharmacy Electronically, [facility], 162.56, cm, 07/04/22 8:33:00 EDT, Height Start Date: 10/14/22 Status: Ordered All Day Allergy 10 mg oral tablet See Instructions, TAKE 1 TABLET (10 MG) BY MOUTH DAILY IN THE AM FOR SEASONAL ALLERGIES FROM DECEMBER THROUGH JUNE (START 12/24 / END 07/25) SEE ANCILLARY ORDERS, # 30 tablet, 2 Refills, Maintenance, 07/22/22 15:15:00 EDT, [facility], 162.56, cm, 1... Start Date: 07/22/22 Status: Ordered amLODIPine 10 mg oral tablet See Instructions, TAKE 1 TABLET (10 MG) BY MOUTH DAILY IN AM FOR HYPERTENSION, # 30 tablet, 5 Refills, 09/29/22 11:37:00 EST, [facility], 162.56, cm, 07/04/22 8:33:00 EDT, Height Start Date: 09/29/22 Status: Ordered ANTACID 500 MG CHEWABLE TAB ANTACID 500 MG CHEWABLE TAB, See Instructions, # 90 each, Refills 3, Tot. Refills 3, Maintenance, TAKE 1 TABLET PO TID FOR OSTEOPOROSIS. MAY CRUSH TABLET PER DR ROSA MARIA CRUZ [phone], 07/20/18 12:11:49EDT, Compound Start Date: 07/20/18 Status: Ordered benzonatate 100 mg oral capsule 1 capsule, By Mouth, 3 times a day, PRN NEEDED FOR COUGH / IF NO IMPROVEMENT IN 3 DAYS NOTIFY MD/ IC, JAGRUTI, # 21 capsule, 0 Refills, Maintenance, 02/17/23 8:57:00 EDT, [facility], 162.56, cm, 07/04/22 8:33:00 EDT, Height Start Date: 02/17/23 Status: Ordered bisacodyl 10 mg rectal suppository See Instructions, INSERT 1 SUPP (10MG) INTO RECTUM NEEDED IF MILK OF MAGNESIA INEFFECTIVE AFTER 8 HRS/BISAC- EVAC EQUIVALENT/ IF SUPPOSITORY INEFFECTIVE AFTER 4 HRS CALL MD, # 7 supp, 11 Refills, Acute, [facility], 162.56, cm, 02/25/21 9:29:00... Start Date: 04/15/21 Status: Ordered Blood Pressure Monitor See Instructions, 1, 0, 0, 06/11/07 11:11:37, PRN, HTN, ADS OPPTHS, [place] [address] Start Date: 06/11/07 Status: Ordered calcium carbonate 500 mg (200 mg elemental calcium) oral tablet, chewable 1, tablet, By Mouth, 3 times a day, CRUSH. IC: CALCIUM CARBONATE, # 90 tablet, Refills 5, Maintenance, 02/17/23 8:57:00 EDT, Route to Pharmacy Electronically, [facility], 162.56, cm, 07/04/22 8:33:00 EDT, Height Start Date: 02/17/23 Status: Ordered carbamide peroxide 6.5% otic solution See Instructions, INSTILL 4 DROPS INTO EACH EAR TWICE DAILY FOR 5 DAYS EACH MONTH / IC: CARBAMIDE PEROXIDE (EAR DROPS 6.5%), # 15 mL, 11 Refills, Maintenance, 08/21/22 7:49:00 EST, [facility], 30, INSTILL 4 DROPS INTO EACH [...] capsule, 5 Refills, Maintenance, 10/20/22 6:09:00 EST, [facility], 162.56, cm, 07/04/22 8:33:00 EDT, Height Start Date: 10/20/22 Status: Ordered EARWAX TREATMENT DROPS 6.5% EARWAX TREATMENT DROPS 6.5%, See Instructions, # 1 each, Refills 11, Tot. Refills 11, Maintenance, USE DIRECTED FAX [phone], 12/02/20 14:40:00 EST, [facility];, [facility], 162.56, cm, 02/24/20 9:30:00 EDT, Height Start Date: 12/02/20 Status: Ordered fluoride 1.1% topical gel See Instructions, USE 1/4 INCH OF GEL TO BRUSH TEETH DAILY IN THE EVENING / BRUSH THOROUGHLY ALONG GUMLINE IC: DENTAGEL, # 56 Gm, 11 Refills, [facility], 30, USE 1/4 INCH OF GEL TO BRUSH TEETH DAILY IN THE EVENING / BRUSH THOROUGHLY ALONG GUMLINE... Start Date: 01/28/22 Status: Ordered Carolyn-jag 8.6 mg oral tablet 1 tablet, By Mouth, Daily in PM, FOR CONSTIPATION / SEE MILK OF MAG ORDERS / IC: SENNA 8.6 MG, # 15tablet, 6 Refills, Maintenance, 10/14/22 8:03:00 EST, [facility], 162.56, cm, 07/04/22 8:33:00EDT, Height Start [...] 30ML=2,400MG, # 300 mL, 5 Refills, Acute, [facility], 162.56, cm, 02/24/20 9:30:00 EDT, Height Start Date: 10/30/20 Status: Ordered MILLITRIUM TABLET See Instructions, 30, 11, 11, 06/20/08 13:07:29, TAKE 1 TABLET BY MOUTH DAILY (VITAMIN), [facility] [address] [place] [address], Constant Indicator, MILLITRIUM TABLET Start Date: 06/20/08 [...] bid prn nasal dryness PER DAWIT STOREY FORMING MILL OPERATOR-C FAX [phone], 11/02/18 14:15:30 EST, Compound Start Date: 11/02/18 Status: Ordered Ocuflox 0.3% solution 2 drops, Eyes, Both, 4 times a day, # 10 mL, 0 Refills, Maintenance, 01/10/17 14:21:09, Ophth Solution, 2 drops Eyes, Both 4 times a day Start Date: 01/10/17 Status: Ordered Polysporin 500 u-65072 u/gm ointment See Instructions, APPLY A THIN LAYER TOPICALLY TWICE DAILY NEEDED TO RED, IRRITATED SKIN X 7 DAYS / SEE ANCILLARY ORDERS (BACITRACIN-POLYMYXIN OINTMENT), # 28.3 Gm, 5 Refills, Maintenance, 04/14/21 14:39:00 EDT, [facility], 7, APPLY A THIN LAY... Start Date: 04/14/21 Status: Ordered pravastatin 40 mg oral tablet See Instructions, TAKE 1 TABLET (40 MG) BY MOUTH DAILY IN PM FOR HYPERLIPIDEMIA, # 30 tablet, 5 Refills, Maintenance, 02/17/23 13:00:00 EDT, [facility], 162.56, cm, 07/04/22 8:33:00 EDT, Height [...] (SUPHEDRIN EQUIVALENT), # 30 tablet, 11 Refills, [facility], 162.56, cm, 03/24/22 10:31:00 EDT, Height Start Date: 04/22/22 Status: Ordered SUDOGEST 30 MG TABLETS SUDOGEST 30 MG TABLETS, See Instructions, # 30 each, Refills 11, Tot. Refills 11, Maintenance, TAKE30 MG Q6H PRN PER DR CRANE FAX [phone], 02/01/19 9:46:36 EDT, Compound Start Date: 02/01/19 Status: Ordered THERA CAPLETS THERA CAPLETS, See Instructions, # 30 each, Refills 5, Tot. Refills 5, Maintenance, TAKE ONE CAPLETBY MOUTH QD PER DR CRANE FAX [phone], 10/08/20 11:48:00 EST, [facility], 162.56, cm, 02/24/20 [...] mL, 1 Refills, Maintenance, 12/01/20 8:15:00 EST, [place], 1 sprays Topically 2 times a day, 162.56, cm, 02/24/20 9:30:00 EDT, Height Start Date: 12/01/20 Status: Ordered CHAKASSIN DM KAILYNIN DM, See Instructions, # 420 mL, Refills 1, Tot. Refills 1, Maintenance, 10 ML PO Q4H PRN FORCOUGH AT BEDTIME PER DR ROSA MARIA HUGHESX [phone], 05/22/20 8:48:00 EDT, [facility], 162.56, cm, 02/24/20 [...] Confirmed Active Vitamin D deficiency Confirmed Active 44912; repeat 2020 2colo 2006 nl, repeat 2015 3Colonoscopy 2016 positive polyp, repeat 2020. 4colo 2016 Social History Social History Type Response Smoking Status Never smoker entered on: 02/01/16 Sex Patient Care team information Care Team Personnel Name: Schuyler Crane MD Position: [facility] Physician - Primary Care Member Role: PCP Address: Address: [address] [place] [address]- Care Team Related Persons Name: ELLE ALMEIDA Address: home [address] [place] [address] Name: ZAK SHELL
--- OUTSIDE RECORDS SUMMARY | 2024-04-02 09:43 | XMS_ITS | Continuity of Care Document ---
Author Organization [facility] Mike Chase Todd lt Address [address] [place] [address]- Care Team Providers Care Zoology Teacher Name Role Phone Schuyler Crane MD Primary Care Physician [phone] [facility] 01[facility]24 - 02/08/24 [facility] Adult [address] [place] [address]- Allergies, Adverse Reactions, Alerts Substance Reaction Severity [...] 08/25/04 Vishal muniz 1Result Comment: Td - [facility]# [id number] 2Result Comment: PCV23 - [facility]# [id number] 3Result Comment: [facility]# [id number] 4Result Comment: [10/28/2016] pharmacy 5Admin Note: given [...] 10/14/22 8:03:00 EST, Route to Pharmacy Electronically, [facility], 162.56, cm, 07/04/22 8:33:00 EDT, Height Start Date: 10/14/22 Status: Ordered acetaminophen 325 mg oral tablet 2, tablet, By Mouth, 2 times a day, PRN, # 20 tablet, Refills 0, Tot. Refills 0, Maintenance, NEEDED, 12/12/23 11:09:00 EDT, Route to Pharmacy Electronically, [facility], 162.56, cm, 12/11/2409:47:00 EDT, Height Start Date: 12/12/23 Stop Date: 12/17/23 Status: Ordered All Day Allergy 10 mg oral tablet 1 tablet, By Mouth, Daily in AM, FOR SEASONAL ALLERGIES FROM DECEMBER THROUGH JUNE (START 12/24 / ) SEE ANCILLARY ORDERS., # 30 tablet, 11 Refills, Maintenance, 12/21/23 7:45:00 EDT, [facility], 162.56, cm, 12/12/23 10:47:00 EDT, Height Start Date: 12/21/23 Status: Ordered amLODIPine 10 mg oral tablet 1 tablet, By Mouth, Daily in AM, FOR HYPERTENSION., # 30 tablet, 5 Refills, Maintenance, 10/25/23 0:22:00 EST, [facility], 162.56, cm, 10/03/23 9:00:00 EST, Height Start Date: 10/25/23 Status: Ordered ANTACID 500 MG CHEWABLE TAB ANTACID 500 MG CHEWABLE TAB, See Instructions, # 90 each, Refills 3, Tot. Refills 3, Maintenance, TAKE 1 TABLET PO TID FOR OSTEOPOROSIS. MAY CRUSH TABLET PER DR ROSA MARIA CRUZ [phone], 07/20/18 12:11:49EDT, Compound Start Date: 07/20/18 Status: Ordered benzonatate 100 mg oral capsule 1 capsule, By Mouth, 3 times a day, PRN NEEDED FOR COUGH / IF NO IMPROVEMENT IN 3 DAYS NOTIFY MD/ IC, JAGRUTI, # 21 capsule, 0 Refills, Maintenance, 10/05/23 12:01:00 EST, [facility], 162.56, cm, 10/03/23 9:00:00 EST, Height Start Date: 10/05/23 Status: Ordered bisacodyl 10 mg rectal suppository See Instructions, INSERT 1 SUPP (10MG) INTO RECTUM NEEDED IF MILK OF MAGNESIA INEFFECTIVE AFTER 8 HRS/BISAC- EVAC EQUIVALENT/ IF SUPPOSITORY INEFFECTIVE AFTER 4 HRS CALL MD, # 7 supp, 11 Refills, Acute, [facility], 162.56, cm, 02/25/21 9:29:00... Start Date: 04/15/21 Status: Ordered Blood Pressure Monitor See Instructions, 1, 0, 0, 06/11/07 11:11:37, PRN, HTN, ADS OPPTHS, [facility] [address] [place] [address] Start Date: 06/11/07 Status: Ordered calcium carbonate 500 mg (200 mg elemental calcium) oral tablet, chewable 1, tablet, By Mouth, 3 times a day, CRUSH. IC: CALCIUM CARBONATE, # 90 tablet, Refills 5, Maintenance, 10/02/23 8:50:00 EST, Route to Pharmacy Electronically, [facility], 162.56, cm, 09/19/23 10:28:00 EST, Height Start Date: 10/02/23 Status: Ordered carbamide peroxide 6.5% otic solution See Instructions, INSTILL 4 DROPS INTO EACH EAR TWICE DAILY FOR 5 DAYS EACH MONTH / IC: CARBAMIDE PEROXIDE (EAR DROPS 6.5%), # 15 mL, 11 Refills, Maintenance, 09/01/23 9:17:00 EST, [facility], 30, INSTILL 4 DROPS INTO EACH [...] capsule, 5 Refills, Maintenance, 11/23/23 20:00:00 EST, [facility], 162.56, cm, 10/03/23 9:00:00 EST, Height Start Date: 11/23/23 Status: Ordered EARWAX TREATMENT DROPS 6.5% EARWAX TREATMENT DROPS 6.5%, See Instructions, # 1 each, Refills 11, Tot. Refills 11, Maintenance, USE DIRECTED FAX [phone], 12/02/20 14:40:00 EST, [facility], 162.56, cm, 02/24/20 9:30:00 EDT, Height Start Date: 12/02/20 Status: Ordered fluoride 1.1% topical gel See Instructions, USE 1/4 INCH OF GEL TO BRUSH TEETH DAILY IN THE EVENING / BRUSH THOROUGHLY ALONG GUMLINE IC: DENTAGEL, # 56 Gm, 11 Refills, Maintenance, 09/21/23 16:44:00 EST, [facility], 30, USE 1/4 INCH OF GEL TO BRUSH TEETH DAILY IN THE EVEN... Start Date: 09/21/23 Status: Ordered Carolyn-jag 8.6 mg oral tablet 1 tablet, By Mouth, Daily in PM, FOR CONSTIPATION / SEE MILK OF MAG ORDERS / IC: SENNA 8.6 MG, # 15tablet, 6 Refills, Maintenance, 10/14/22 8:03:00 EST, [facility], 162.56, cm, 07/04/22 8:33:00EDT, Height Start Date: 10/14/22 Status: Ordered Hospital Bed See Instructions, # 1 each, Refills 0, Tot. Refills 0, Maintenance, [facility] Bed DX: Left hip fracture, seizure dis, impulse control disorder, atypical autism. Duration ongoing NPI#[id number] Height: 5'6 Weight: 137lbs, 03/22/23 13:55:... Start Date: 03/22/23 Status: Ordered ibuprofen 600 mg oral tablet 600 mg, 1, tablet, By Mouth, Every 8 hours, PRN for pain, # 30 tablet, Refills 0, Tot. Refills 0, Maintenance, 02/08/24 12:44:00 EDT, Route to Pharmacy Electronically, [facility], Partial fill upon patient request if the prescription is for a adeline... Start Date: 02/08/24 Status: Ordered Milk of Magnesia 8% oral suspension See Instructions, TAKE 2 TABLESPOONFULS (30 ML) BY MOUTH AT BEDTIME NEEDED FOR CONSTIPATION ON DAY 3 OF NO BM / SEE BISCOLAX SUPP ORDER 30ML=2,400MG, # 300 mL, 5 Refills, Acute, [facility], 162.56, cm, 02/24/20 9:30:00 EDT, Height Start Date: 10/30/20 Status: Ordered MILLITRIUM TABLET See Instructions, 30, 11, 11, 06/20/08 13:07:29, TAKE 1 TABLET BY MOUTH DAILY (VITAMIN), [facility] [address] [place] [address], Constant Indicator, MILLITRIUM TABLET Start Date: 06/20/08 [...] tablet, 0 Refills, Maintenance, 10/03/23 8:50:00 EST, [facility], Partial fill upon patient request if the prescription... Start Date: 10/03/23 Status: Ordered Polysporin 500 u-44296 u/gm ointment See Instructions, APPLY A THIN LAYER TOPICALLY TWICE DAILY NEEDED TO RED, IRRITATED SKIN X 7 DAYS / SEE ANCILLARY ORDERS (BACITRACIN-POLYMYXIN OINTMENT), # 28.3 Gm, 5 Refills, Maintenance, 04/18/23 8:59:00 EDT, [facility], 7, APPLY A THIN LAYE... Start Date: 04/18/23 Status: Ordered pravastatin 40 mg oral tablet 1 tablet, By Mouth, Daily, IN PM FOR HYPERLIPIDEMIA., # 30 tablet, 5 Refills, Maintenance, 248:50:00 EST, [facility], 162.56, cm, 09/19/23 10:28:00 EST, Height Start Date: 10/02/23 Status: Ordered Profola oral tablet 1 tablet, By Mouth, Daily, # 30 tablet, 11 Refills, Maintenance, 05/19/23 10:41:00 EDT, [facility], Partial fill upon patient request if [...] tablet, 11 Refills, Maintenance, 10/26/23 8:49:00 EST, [facility], 162.56, cm, 10/03/23 9:00:00 EST, Height Start Date: 10/26/23 Status: Ordered SUDOGEST 30 MG TABLETS SUDOGEST 30 MG TABLETS, See Instructions, # 30 each, Refills 11, Tot. Refills 11, Maintenance, TAKE30 MG Q6H PRN PER DR CRANE FAX [phone], 02/01/19 9:46:36 EDT, Compound Start Date: 02/01/19 Status: Ordered Thera oral tablet 1 tablet, By Mouth, Daily in AM, VITAMIN., # 30 tablet, 5 Refills, Maintenance, 10/25/23 10:03:00 EST, [facility], 30, TAKE 1 TABLET BY MOUTH [...] mL, 1 Refills, Maintenance, 12/01/20 8:15:00 EST, [place], [facility], 1 sprays Topically 2 times a day, 162.56, cm, 02/24/20 9:30:00 EDT, Height Start Date: 12/01/20 Status: Ordered KAILYNIN KUSHAL FATIMA, See Instructions, # 420 mL, Refills 1, Tot. Refills 1, Maintenance, 10 ML PO Q4H PRN FORCOUGH AT BEDTIME PER DR CRANE FAX [phone], 05/22/20 8:48:00 EDT, [facility], 162.56, cm, 02/24/20 [...] Confirmed Active Vitamin D deficiency Confirmed Active 32420; repeat 2020 2colo 2005 nl, repeat 2015 3Colonoscopy 2016 positive polyp, repeat 2020. 4colo 2015 Social History Social History Type Response Smoking Status Never smoker entered on: 02/01/16 Sex Patient Care team information Care Team Personnel Name: Rosa Maria HUSTON, Schuyler Pope Position: [facility] Physician - Primary Care Member Role: PCP Address: Address: [address] [place] [address]- Care Team Related Persons Name: ELLE ALMEIDA Address: home [address] [place] [id number] Name: ZAK SHELL
--- OUTSIDE RECORDS SUMMARY | 2024-04-02 09:43 | XMS_ITS | Continuity of Care Document ---
Author Organization [facility] Salvatore Todd lt Address [address] [place] [address]- Care Team Providers Care Clinical Staff Educator Name Role Phone Schuyler Crane MD Primary Care Physician [facility] 04[facility]/22 - 05/21/22 [facility] Adult [address] [place] [address]- Allergies, Adverse Reactions, Alerts Substance Reaction Severity [...] Adult (oldterm) 08/25/04 G cristy 1Result Comment: [facility]# [id number] 2Result Comment: [10/28/2016] pharmacy 3Admin Note: given [...] Replace Required Details, Route to Pharmacy Electronically, [facility], 162.56, cm, 02/25/21 9:29:00 EDT, He... Start Date: 08/31/21 Status: Ordered amLODIPine 10 mg oral tablet See Instructions, TAKE 1 TABLET (10 MG) BY MOUTH DAILY IN AM FOR HYPERTENSION, # 30 tablet, 5 Refills, [facility], 162.56, cm, 03/24/22 10:31:00 EDT, Height Start Date: 04/01/22 Status: Ordered ANTACID 500 MG CHEWABLE TAB ANTACID 500 MG CHEWABLE TAB, See Instructions, # 90 each, Refills 3, Tot. Refills 3, Maintenance, TAKE 1 TABLET PO TID FOR OSTEOPOROSIS. MAY CRUSH TABLET PER DR CRANE FX [phone], 07/20/18 12:11:49EDT, Compound Start Date: 07/20/18 Status: Ordered benzonatate 100 mg oral capsule 1 capsule, By Mouth, 3 times a day, PRN NEEDED FOR COUGH / IF NO IMPROVEMENT IN 3 DAYS NOTIFY / IC, JAGRUTI, # 21 capsule, 0 Refills, [facility], 162.56, cm, 12/06/21 13:34:00 EDT, Height Start Date: 02/25/22 Status: Ordered bisacodyl 10 mg rectal suppository See Instructions, INSERT 1 SUPP (10MG) INTO RECTUM NEEDED IF MILK OF MAGNESIA INEFFECTIVE AFTER 8 HRS/BISAC- EVAC EQUIVALENT/ IF SUPPOSITORY INEFFECTIVE AFTER 4 HRS CALL , # 7 supp, 11 Refills, Acute, [facility], 162.56, cm, 02/25/21 9:29:00... Start Date: 04/15/21 Status: Ordered Blood Pressure Monitor See Instructions, 1, 0, 0, 06/11/07 11:11:37, PRN, HTN, ADS OPPTHS, [facility] [id number] [place] [address] Start Date: 06/11/07 Status: Ordered calcium carbonate 500 mg (200 mg elemental calcium) oral tablet, chewable See Instructions, TAKE 1 TABLET (500 MG) BY MOUTH 3 TIMES A DAY FOR OSTEOPOROSIS MAY CRUSH TABLET IC: CALCIUM CARBONATE, # 90 tablet, Refills 5, Instructions Replace Required Details, Route to Pharmacy Electronically, [facility], 162.56, cm, 11/23... Start Date: 02/25/22 Status: Ordered cetirizine 10 mg oral tablet 1 tablet, By Mouth, Daily in AM, FOR SEASONAL ALLERGIES FROM DECEMBER THROUGH JUNE (START 12/24) SEE ANCILLARY ORDERS., # 30 tablet, 5 Refills, [facility], 162.56, cm, 12/06/21 13:34:00 EDT, Height [...] 100 MG), # 60 capsule, 5 Refills, [facility], 162.56, cm, 12/06/21 13:34:00 EDT, Height Start Date: 01/13/22 Status: Ordered EARWAX TREATMENT DROPS 6.5% EARWAX TREATMENT DROPS 6.5%, See Instructions, # 1 each, Refills 11, Tot. Refills 11, Maintenance, USE DIRECTED FAX [phone], 12/02/20 14:40:00 EST, [facility], 162.56, cm, [...] 30ML=2,400MG, # 300 mL, 5 Refills, Acute, [facility], 162.56, cm, 02/24/20 9:30:00 EDT, Height Start Date: 10/30/20 Status: Ordered MILLITRIUM TABLET See Instructions, 30, 11, 11, 06/20/08 13:07:29, TAKE 1 TABLET BY MOUTH DAILY (VITAMIN), [facility] [address] [place] [address], Constant Indicator, MILLITRIUM TABLET Start Date: 06/20/08 [...] bid prn nasal dryness PER DAWIT [employer] DIRECTOR OF MEDICAL EDUCATION-C FAX [phone], 11/02/18 14:15:30 EST, Compound Start Date: 11/02/18 Status: Ordered Ocuflox 0.3% solution 2 drops, Eyes, Both, 4 times a day, # 10 mL, 0 Refills, Maintenance, 01/10/17 14:21:09, Ophth Solution, 2 drops Eyes, Both 4 times a day Start Date: 01/10/17 Status: Ordered Polysporin 500 u-86412 u/gm ointment See Instructions, APPLY A THIN LAYER TOPICALLY TWICE DAILY NEEDED TO RED, IRRITATED SKIN X 7 DAYS / SEE ANCILLARY ORDERS (BACITRACIN-POLYMYXIN OINTMENT), # 28.3 Gm, 5 Refills, Maintenance, 04/14/21 14:39:00 EDT, [facility], 7, APPLY A THIN LAY... Start Date: 04/14/21 Status: Ordered pravastatin 40 mg oral tablet 1 tablet, By Mouth, Daily, IN PM FOR HYPERLIPIDEMIA., # 30 tablet, 5 Refills, [facility], 162.56, cm, 12/06/21 13:34:00 EDT, Height [...] (SUPHEDRIN EQUIVALENT), # 30 tablet, 11 Refills, [facility], 162.56, cm, 03/24/22 10:31:00 EDT, Height Start Date: 04/22/22 Status: Ordered SUDOGEST 30 MG TABLETS SUDOGEST 30 MG TABLETS, See Instructions, # 30 each, Refills 11, Tot. Refills 11, Maintenance, TAKE30 MG Q6H PRN PER DR CRANE FAX [phone], 02/01/19 9:46:36 EDT, Compound Start Date: 02/01/19 Status: Ordered THERA CAPLETS THERA CAPLETS, See Instructions, # 30 each, Refills 5, Tot. Refills 5, Maintenance, TAKE ONE CAPLETBY MOUTH QD PER DR CRANE FAX [phone], 10/08/20 11:48:00 EST, [facility], 162.56, cm, 02/24/20 9:30:00 EDT, Height Start Date: 10/08/20 Status: Ordered Thera oral tablet See Instructions, TAKE 1 TABLET BY MOUTH DAILY IN THE AM (VITAMIN), # 30 tablet, 5 Refills, [facility], 30, TAKE 1 TABLET BY MOUTH [...] mL, 1 Refills, Maintenance, 12/01/20 8:15:00 EST, [place], 1 sprays Topically 2 times a day, 162.56, cm, 02/24/20 9:30:00 EDT, Height Start Date: 12/01/20 Status: Ordered TUSSIN DM TUSSIN DM, See Instructions, # 420 mL, Refills 1, Tot. Refills 1, Maintenance, 10 ML PO Q4H PRN FORCOUGH AT BEDTIME PER DR CRANE FAX [phone], 05/22/20 8:48:00 EDT, [facility], 162.56, cm, 02/24/20 [...] Seizure disorder(Confirmed) Active Vitamin D deficiency(Confirmed) Active 20467; repeat 2020 2colo 2006 nl, repeat 2015 3Colonoscopy 2016 positive polyp, repeat 2020. 4colo 2015 Social History Social History Type Response Smoking Status Never smoker entered on: 02/01/16 Sex Care Team Personnel Name: Bisi HUSTON, Schuyler Pope Address: [address] [place] [id number]
--- OUTSIDE RECORDS SUMMARY | 2024-04-02 09:43 | XMS_ITS | Continuity of Care Document ---
Author Organization [facility] Mike Chase Todd lt Address [address] [place] [address]- Care Team Providers Care Manager Process Excellence Name Role Phone Schuyler Crane MD Primary Care Physician [facility] 12[facility]23 - 01/04/24 [facility] Adult [address] [place] [address]- Allergies, Adverse Reactions, Alerts Substance Reaction Severity [...] 08/25/04 Vishal muniz 1Result Comment: Td - [facility]# [id number] 2Result Comment: PCV23 - [facility]# [phone] 3Result Comment: [facility]# [phone] 4Result Comment: [10/28/2016] pharmacy 5Admin Note: given [...] 10/14/22 8:03:00 EST, Route to Pharmacy Electronically, [facility], 162.56, cm, 07/04/22 8:33:00 EDT, Height Start Date: 10/14/22 Status: Ordered acetaminophen 325 mg oral tablet 2, tablet, By Mouth, 2 times a day, PRN, # 20 tablet, Refills 0, Tot. Refills 0, Maintenance, NEEDED, 12/12/23 11:09:00 EDT, Route to Pharmacy Electronically, [facility], 162.56, cm, 12/11/2409:47:00 EDT, Height Start Date: 12/12/23 Stop Date: 12/17/23 Status: Ordered All Day Allergy 10 mg oral tablet 1 tablet, By Mouth, Daily in AM, FOR SEASONAL ALLERGIES FROM DECEMBER THROUGH JUNE (START 12/24 / ) SEE ANCILLARY ORDERS., # 30 tablet, 11 Refills, Maintenance, 12/21/23 7:45:00 EDT, [facility], 162.56, cm, 12/12/23 10:47:00 EDT, Height Start Date: 12/21/23 Status: Ordered amLODIPine 10 mg oral tablet 1 tablet, By Mouth, Daily in AM, FOR HYPERTENSION., # 30 tablet, 5 Refills, Maintenance, 10/25/23 0:22:00 EST, [facility], 162.56, cm, 10/03/23 9:00:00 EST, Height Start Date: 10/25/23 Status: Ordered ANTACID 500 MG CHEWABLE TAB ANTACID 500 MG CHEWABLE TAB, See Instructions, # 90 each, Refills 3, Tot. Refills 3, Maintenance, TAKE 1 TABLET PO TID FOR OSTEOPOROSIS. MAY CRUSH TABLET PER DR ROSA MARIA CRUZ [phone], 07/20/18 12:11:49EDT, Compound Start Date: 07/20/18 Status: Ordered benzonatate 100 mg oral capsule 1 capsule, By Mouth, 3 times a day, PRN NEEDED FOR COUGH / IF NO IMPROVEMENT IN 3 DAYS NOTIFY MD/ IC, JAGRUTI, # 21 capsule, 0 Refills, Maintenance, 10/05/23 12:01:00 EST, [facility], 162.56, cm, 10/03/23 9:00:00 EST, Height Start Date: 10/05/23 Status: Ordered bisacodyl 10 mg rectal suppository See Instructions, INSERT 1 SUPP (10MG) INTO RECTUM NEEDED IF MILK OF MAGNESIA INEFFECTIVE AFTER 8 HRS/BISAC- EVAC EQUIVALENT/ IF SUPPOSITORY INEFFECTIVE AFTER 4 HRS CALL MD, # 7 supp, 11 Refills, Acute, [facility], 162.56, cm, 02/25/21 9:29:00... Start Date: 04/15/21 Status: Ordered Blood Pressure Monitor See Instructions, 1, 0, 0, 06/11/07 11:11:37, PRN, HTN, ADS OPPTHS, [facility] [id number] [place] [address] Start Date: 06/11/07 Status: Ordered calcium carbonate 500 mg (200 mg elemental calcium) oral tablet, chewable 1, tablet, By Mouth, 3 times a day, CRUSH. IC: CALCIUM CARBONATE, # 90 tablet, Refills 5, Maintenance, 10/02/23 8:50:00 EST, Route to Pharmacy Electronically, [facility], 162.56, cm, 09/19/23 10:28:00 EST, Height Start Date: 10/02/23 Status: Ordered carbamide peroxide 6.5% otic solution See Instructions, INSTILL 4 DROPS INTO EACH EAR TWICE DAILY FOR 5 DAYS EACH MONTH / IC: CARBAMIDE PEROXIDE (EAR DROPS 6.5%), # 15 mL, 11 Refills, Maintenance, 09/01/23 9:17:00 EST, [facility], 30, INSTILL 4 DROPS INTO EACH [...] capsule, 5 Refills, Maintenance, 11/23/23 20:00:00 EST, [facility], 162.56, cm, 10/03/23 9:00:00 EST, Height Start Date: 11/23/23 Status: Ordered EARWAX TREATMENT DROPS 6.5% EARWAX TREATMENT DROPS 6.5%, See Instructions, # 1 each, Refills 11, Tot. Refills 11, Maintenance, USE DIRECTED FAX [phone], 12/02/20 14:40:00 EST, [facility], 162.56, cm, 02/24/20 9:30:00 EDT, Height Start Date: 12/02/20 Status: Ordered fluoride 1.1% topical gel See Instructions, USE 1/4 INCH OF GEL TO BRUSH TEETH DAILY IN THE EVENING / BRUSH THOROUGHLY ALONG GUMLINE IC: DENTAGEL, # 56 Gm, 11 Refills, Maintenance, 09/21/23 16:44:00 EST, [facility], 30, USE 1/4 INCH OF GEL TO BRUSH TEETH DAILY IN THE EVEN... Start Date: 09/21/23 Status: Ordered Carolyn-jag 8.6 mg oral tablet 1 tablet, By Mouth, Daily in PM, FOR CONSTIPATION / SEE MILK OF MAG ORDERS / IC: SENNA 8.6 MG, # 15tablet, 6 Refills, Maintenance, 10/14/22 8:03:00 EST, [facility], 162.56, cm, 07/04/22 8:33:00EDT, Height Start Date: 10/14/22 Status: Ordered Hospital Bed See Instructions, # 1 each, Refills 0, Tot. Refills 0, Maintenance, [facility] DX: Left hip fracture, seizure dis, impulse control disorder, atypical autism. Duration ongoing NPI#[id number] Height: 5'6 Weight: 137lbs, 03/22/23 13:55:... Start [...] BY MOUTH DAILY (VITAMIN), [facility] [address] [place] [address], Constant Indicator, MILLITRIUM TABLET Start Date: 06/20/08 [...] Start Date: 10/03/23 Status: Ordered Polysporin 500 u-43586 u/gm ointment See Instructions, APPLY A THIN LAYER TOPICALLY TWICE DAILY NEEDED TO RED, IRRITATED SKIN X 7 DAYS / SEE ANCILLARY ORDERS (BACITRACIN-POLYMYXIN OINTMENT), # 28.3 Gm, 5 Refills, Maintenance, 04/18/23 8:59:00 EDT, [facility], 7, APPLY A THIN LAYE... Start Date: 04/18/23 Status: Ordered pravastatin 40 mg oral tablet 1 tablet, By Mouth, Daily, IN PM FOR HYPERLIPIDEMIA., # 30 tablet, 5 Refills, Maintenance, 248:50:00 EST, [facility], 162.56, cm, 09/19/23 10:28:00 EST, Height Start Date: 10/02/23 Status: Ordered Profola oral tablet 1 tablet, By Mouth, Daily, # 30 tablet, 11 Refills, Maintenance, 05/19/23 10:41:00 EDT, [facility], Partial fill upon patient request if [...] tablet, 11 Refills, Maintenance, 10/26/23 8:49:00 EST, [facility], 162.56, cm, 10/03/23 9:00:00 EST, Height Start Date: 10/26/23 Status: Ordered SUDOGEST 30 MG TABLETS SUDOGEST 30 MG TABLETS, See Instructions, # 30 each, Refills 11, Tot. Refills 11, Maintenance, TAKE30 MG Q6H PRN PER DR CRANE FAX [phone], 02/01/19 9:46:36 EDT, Compound Start Date: 02/01/19 Status: Ordered Thera oral tablet 1 tablet, By Mouth, Daily in AM, VITAMIN., # 30 tablet, 5 Refills, Maintenance, 10/25/23 10:03:00 EST, [facility], 30, TAKE 1 TABLET BY MOUTH [...] mL, 1 Refills, Maintenance, 12/01/20 8:15:00 EST, [place], [facility], 1 sprays Topically 2 times a day, 162.56, cm, 02/24/20 9:30:00 EDT, Height Start Date: 12/01/20 Status: Ordered TUSSIN DM TUSSIN DM, See Instructions, # 420 mL, Refills 1, Tot. Refills 1, Maintenance, 10 ML PO Q4H PRN FORCOUGH AT BEDTIME PER DR CRANE FAX [phone], 05/22/20 8:48:00 EDT, [facility], 162.56, cm, 02/24/20 [...] Confirmed Active Vitamin D deficiency Confirmed Active 53066; repeat 2020 2colo 2006 nl, repeat 2015 3Colonoscopy 2016 positive polyp, repeat 2020. 4colo 2015 Social History Social History Type Response Smoking Status Never smoker entered on: 02/01/16 Sex Patient Care team information Care Team Personnel Name: Rosa Maria HUSTON, Schuyler Pope Position: [facility] Physician - Primary Care Member Role: PCP Address: Address: [address] [place] [address] [place] [address]- Care Team Related Persons Name: ELLE ALMEIDA Address: [address] [place] [address] Name: ZAK SHELL
--- OUTSIDE RECORDS SUMMARY | 2024-04-02 09:43 | XMS_ITS | Continuity of Care Document ---
Author Organization [facility] Address [address] [place] [address]- Care Team Providers Care Quality Tech Name Role Phone Schuyler Crane MD Primary Care Physician Encounter [facility] ACCT R [id number] Date(s): 02/08/24 - 03/09/24 [facility] [address] [place] [address]- Attending Physician: Kiara Henriquez Admitting Physician: AdmtrKiara Referring Physician: Admtr, Ar8 Allergies, Adverse Reactions, Alerts [...] 08/25/04 G cristy 1Result Comment: Td - [facility]# [id number] 2Result Comment: PCV23 - [facility]# [id number] 3Result Comment: [facility]# [id number] 4Result Comment: [10/28/2016] pharmacy 5Admin Note: given [...] 10/14/22 8:03:00 EST, Route to Pharmacy Electronically, [facility], 162.56, cm, 07/04/22 8:33:00 EDT, Height Start Date: 10/14/22 Status: Ordered acetaminophen 325 mg oral tablet 2, tablet, By Mouth, 2 times a day, PRN, # 20 tablet, Refills 0, Tot. Refills 0, Maintenance, NEEDED, 12/12/23 11:09:00 EDT, Route to Pharmacy Electronically, [facility], 162.56, cm, 12/11/2409:47:00 EDT, Height Start Date: 12/12/23 Stop Date: 12/17/23 Status: Ordered All Day Allergy 10 mg oral tablet 1 tablet, By Mouth, Daily in AM, FOR SEASONAL ALLERGIES FROM DECEMBER THROUGH JUNE (START 12/24 / END10/31) SEE ANCILLARY ORDERS., # 30 tablet, 11 Refills, Maintenance, 12/21/23 7:45:00 EDT, [facility], 162.56, cm, 12/12/23 10:47:00 EDT, Height Start Date: 12/21/23 Status: Ordered amLODIPine 10 mg oral tablet 1 tablet, By Mouth, Daily in AM, FOR HYPERTENSION., # 30 tablet, 5 Refills, Maintenance, 10/25/23 0:22:00 EST, [facility], 162.56, cm, 10/03/23 9:00:00 EST, Height Start Date: 10/25/23 Status: Ordered ANTACID 500 MG CHEWABLE TAB ANTACID 500 MG CHEWABLE TAB, See Instructions, # 90 each, Refills 3, Tot. Refills 3, Maintenance, TAKE 1 TABLET PO TID FOR OSTEOPOROSIS. MAY CRUSH TABLET PER DR ROSA MARIA CRUZ [phone], 07/20/18 12:11:49EDT, Compound Start Date: 07/20/18 Status: Ordered benzonatate 100 mg oral capsule 1 capsule, By Mouth, 3 times a day, PRN NEEDED FOR COUGH / IF NO IMPROVEMENT IN 3 DAYS NOTIFY MD/ IC, JAGRUTI, # 21 capsule, 0 Refills, Maintenance, 10/05/23 12:01:00 EST, [facility], 162.56, cm, 10/03/23 9:00:00 EST, Height Start Date: 10/05/23 Status: Ordered bisacodyl 10 mg rectal suppository See Instructions, INSERT 1 SUPP (10MG) INTO RECTUM NEEDED IF MILK OF MAGNESIA INEFFECTIVE AFTER 8 HRS/BISAC- EVAC EQUIVALENT/ IF SUPPOSITORY INEFFECTIVE AFTER 4 HRS CALL MD, # 7 supp, 11 Refills, Acute, [facility], 162.56, cm, 02/25/21 9:29:00... Start Date: 04/15/21 Status: Ordered Blood Pressure Monitor See Instructions, 1, 0, 0, 06/11/07 11:11:37, PRN, HTN, ADS OPPTHS, [facility] [address] [place] [address] Start Date: 06/11/07 Status: Ordered calcium carbonate 500 mg (200 mg elemental calcium) oral tablet, chewable 1, tablet, By Mouth, 3 times a day, CRUSH. IC: CALCIUM CARBONATE, # 90 tablet, Refills 5, Maintenance, 10/02/23 8:50:00 EST, Route to Pharmacy Electronically, [facility], 162.56, cm, 09/19/23 10:28:00 EST, Height Start Date: 10/02/23 Status: Ordered carbamide peroxide 6.5% otic solution See Instructions, INSTILL 4 DROPS INTO EACH EAR TWICE DAILY FOR 5 DAYS EACH MONTH / IC: CARBAMIDE PEROXIDE (EAR DROPS 6.5%), # 15 mL, 11 Refills, Maintenance, 09/01/23 9:17:00 EST, [facility], 30, INSTILL 4 DROPS INTO EACH [...] capsule, 5 Refills, Maintenance, 11/23/23 20:00:00 EST, [facility], 162.56, cm, 10/03/23 9:00:00 EST, Height Start Date: 11/23/23 Status: Ordered EARWAX TREATMENT DROPS 6.5% EARWAX TREATMENT DROPS 6.5%, See Instructions, # 1 each, Refills 11, Tot. Refills 11, Maintenance, USE DIRECTED FAX [phone], 12/02/20 14:40:00 EST, [facility], 162.56, cm, 02/24/20 9:30:00 EDT, Height Start Date: 12/02/20 Status: Ordered fluoride 1.1% topical gel See Instructions, USE 1/4 INCH OF GEL TO BRUSH TEETH DAILY IN THE EVENING / BRUSH THOROUGHLY ALONG GUMLINE IC: DENTAGEL, # 56 Gm, 11 Refills, Maintenance, 09/21/23 16:44:00 EST, [facility], 30, USE 1/4 INCH OF GEL TO BRUSH TEETH DAILY IN THE EVEN... Start Date: 09/21/23 Status: Ordered Carolyn-jag 8.6 mg oral tablet 1 tablet, By Mouth, Daily in PM, FOR CONSTIPATION / SEE MILK OF MAG ORDERS / IC: SENNA 8.6 MG, # 15tablet, 6 Refills, Maintenance, 10/14/22 8:03:00 EST, [facility], 162.56, cm, 07/04/22 8:33:00EDT, Height Start Date: 10/14/22 Status: Ordered Hospital Bed See Instructions, # 1 each, Refills 0, Tot. Refills 0, Maintenance, [facility] Hospital Bed DX: Left hip fracture, seizure dis, impulse control disorder, atypical autism. Duration ongoing NPI#[id number] Height: 5'6 Weight: 137lbs, 03/22/23 13:55:... Start Date: 03/22/23 Status: Ordered ibuprofen 600 mg oral tablet 600 mg, 1, tablet, By Mouth, Every 8 hours, PRN for pain, # 30 tablet, Refills 0, Tot. Refills 0, Maintenance, 02/08/24 12:44:00 EDT, Route to Pharmacy Electronically, [facility], Partial fill upon patient request if the prescription is for a adeline... Start Date: 02/08/24 Status: Ordered Milk of Magnesia 8% oral suspension See Instructions, TAKE 2 TABLESPOONFULS (30 ML) BY MOUTH AT BEDTIME NEEDED FOR CONSTIPATION ON DAY 3 OF NO BM / SEE BISCOLAX SUPP ORDER 30ML=2,400MG, # 300 mL, 5 Refills, Acute, [facility], 162.56, cm, 02/24/20 9:30:00 EDT, Height Start Date: 10/30/20 Status: Ordered MILLITRIUM TABLET See Instructions, 30, 11, 11, 06/20/08 13:07:29, TAKE 1 TABLET BY MOUTH DAILY (VITAMIN), [facility] [address] [place] [address], Constant Indicator, MILLITRIUM TABLET Start Date: 06/20/08 [...] tablet, 0 Refills, Maintenance, 10/03/23 8:50:00 EST, [facility], Partial fill upon patient request if the prescription... Start Date: 10/03/23 Status: Ordered Polysporin 500 u-98945 u/gm ointment See Instructions, APPLY A THIN LAYER TOPICALLY TWICE DAILY NEEDED TO RED, IRRITATED SKIN X 7 DAYS / SEE ANCILLARY ORDERS (BACITRACIN-POLYMYXIN OINTMENT), # 28.3 Gm, 5 Refills, Maintenance, 04/18/23 8:59:00 EDT, [facility], 7, APPLY A THIN LAYE... Start Date: 04/18/23 Status: Ordered pravastatin 40 mg oral tablet 1 tablet, By Mouth, Daily, IN PM FOR HYPERLIPIDEMIA., # 30 tablet, 5 Refills, Maintenance, 248:50:00 EST, [facility], 162.56, cm, 09/19/23 10:28:00 EST, Height Start Date: 10/02/23 Status: Ordered Profola oral tablet 1 tablet, By Mouth, Daily, # 30 tablet, 11 Refills, Maintenance, 05/19/23 10:41:00 EDT, [facility], Partial fill upon patient request if [...] tablet, 11 Refills, Maintenance, 10/26/23 8:49:00 EST, [facility], 162.56, cm, 10/03/23 9:00:00 EST, Height Start Date: 10/26/23 Status: Ordered SUDOGEST 30 MG TABLETS SUDOGEST 30 MG TABLETS, See Instructions, # 30 each, Refills 11, Tot. Refills 11, Maintenance, TAKE30 MG Q6H PRN PER DR CRANE FAX [phone], 02/01/19 9:46:36 EDT, Compound Start Date: 02/01/19 Status: Ordered Thera oral tablet 1 tablet, By Mouth, Daily in AM, VITAMIN., # 30 tablet, 5 Refills, Maintenance, 10/25/23 10:03:00 EST, [facility], 30, TAKE 1 TABLET BY MOUTH [...] mL, 1 Refills, Maintenance, 12/01/20 8:15:00 EST, [place], [facility], 1 sprays Topically 2 times a day, 162.56, cm, 02/24/20 9:30:00 EDT, Height Start Date: 12/01/20 Status: Ordered JAMAL FATIMA, See Instructions, # 420 mL, Refills 1, Tot. Refills 1, Maintenance, 10 ML PO Q4H PRN FORCOUGH AT BEDTIME PER DR CRANE FAX [phone], 05/22/20 8:48:00 EDT, [facility], 162.56, cm, 02/24/20 [...] Confirmed Active Vitamin D deficiency Confirmed Active 13476; repeat 2020 2colo 2005 nl, repeat 2015 3Colonoscopy 2016 positive polyp, repeat 2020. 4colo 2015 Social History Social History Type Response Smoking Status Never smoker entered on: 02/01/16 Sex Patient Care team information Care Team Personnel Name: Rosa Maria HUSTON, Schuyler Pope Position: [facility] Physician - Primary Care Member Role: PCP Address: Address: [address] [place] [address] [place] [address]- Care Team Related Persons Name: ELLE ALMEIDA Address: home [address] [place], [place] [address] [address] Name: ZAK SHELL
--- OUTSIDE RECORDS SUMMARY | 2024-04-02 09:43 | XMS_ITS | Continuity of Care Document ---
Author Organization [facility] Todd lt Address [address] [place] [address]- Care Team Providers Care Advice Line Rn Name Role Phone Schuyler Crane MD Primary Care Physician [facility]counter [facility] Date(s): 08/31/23 - 09/30/23 [facility] Adult [address] [place] [address]- Allergies, Adverse Reactions, Alerts Substance Reaction Severity [...] Td - [facility]# [id number] 2Result Comment: PCV23 - [facility]# [id number] 3Result Comment: [facility]# [id number] 4Result Comment: [10/28/2016] pharmacy 5Admin Note: given [...] 10/14/22 8:03:00 EST, Route to Pharmacy Electronically, [facility], 162.56, cm, 07/04/22 8:33:00 EDT, Height Start Date: 10/14/22 Status: Ordered All Day Allergy 10 mg oral tablet See Instructions, TAKE 1 TABLET (10 MG) BY MOUTH DAILY IN THE AM FOR SEASONAL ALLERGIES FROM DECEMBER THROUGH JUNE (START 12/24 / END 07/25) SEE ANCILLARY ORDERS, # 30 tablet, 2 Refills, Maintenance, 04/13/23 14:33:00 EDT, [facility], 162.56, cm, 0... Start Date: 04/13/23 Status: Ordered amLODIPine 10 mg oral tablet 1 tablet, By Mouth, Daily in AM, FOR HYPERTENSION., # 30 tablet, 5 Refills, Maintenance, 04/19/23 23:11:00 EDT, [facility], 162.56, cm, 04/10/23 7:35:00 EDT, Height Start Date: 04/19/23 Status: Ordered ANTACID 500 MG CHEWABLE TAB ANTACID 500 MG CHEWABLE TAB, See Instructions, # 90 each, Refills 3, Tot. Refills 3, Maintenance, TAKE 1 TABLET PO TID FOR OSTEOPOROSIS. MAY CRUSH TABLET PER DR ROSA MARIA CRUZ [phone], 07/20/18 12:11:49EDT, Compound Start Date: 07/20/18 Status: Ordered benzonatate 100 mg oral capsule 1 capsule, By Mouth, 3 times a day, PRN NEEDED FOR COUGH / IF NO IMPROVEMENT IN 3 DAYS NOTIFY MD/ IC, JAGRUTI, # 21 capsule, 0 Refills, Maintenance, 02/17/23 8:57:00 EDT, [facility], 162.56, cm, 07/04/22 8:33:00 EDT, Height Start Date: 02/17/23 Status: Ordered bisacodyl 10 mg rectal suppository See Instructions, INSERT 1 SUPP (10MG) INTO RECTUM NEEDED IF MILK OF MAGNESIA INEFFECTIVE AFTER 8 HRS/BISAC- EVAC EQUIVALENT/ IF SUPPOSITORY INEFFECTIVE AFTER 4 HRS CALL MD, # 7 supp, 11 Refills, Acute, [facility], 162.56, cm, 02/25/21 9:29:00... Start Date: 04/15/21 Status: Ordered Blood Pressure Monitor See Instructions, 1, 0, 0, 06/11/07 11:11:37, PRN, HTN, ADS OPPTHS, [facility] [place] [address] Start Date: 06/11/07 Status: Ordered calcium carbonate 500 mg (200 mg elemental calcium) oral tablet, chewable 1, tablet, By Mouth, 3 times a day, CRUSH. IC: CALCIUM CARBONATE, # 90 tablet, Refills 5, Maintenance, 02/17/23 8:57:00 EDT, Route to Pharmacy Electronically, [facility], 162.56, cm, 07/04/22 8:33:00 EDT, Height Start Date: 02/17/23 Status: Ordered carbamide peroxide 6.5% otic solution See Instructions, INSTILL 4 DROPS INTO EACH EAR TWICE DAILY FOR 5 DAYS EACH MONTH / IC: CARBAMIDE PEROXIDE (EAR DROPS 6.5%), # 15 mL, 11 Refills, Maintenance, 09/01/23 9:17:00 EST, [facility], 30, INSTILL 4 DROPS INTO EACH [...] capsule, 5 Refills, Maintenance, 06/06/23 14:01:00 EDT, [facility], 162.56, cm, 05/15/23 9:41:00 EDT, Height Start Date: 06/06/23 Status: Ordered EARWAX TREATMENT DROPS 6.5% EARWAX TREATMENT DROPS 6.5%, See Instructions, # 1 each, Refills 11, Tot. Refills 11, Maintenance, USE DIRECTED FAX [phone], 12/02/20 14:40:00 EST, [facility], 162.56, cm, 02/24/20 9:30:00 EDT, Height Start Date: 12/02/20 Status: Ordered fluoride 1.1% topical gel See Instructions, USE 1/4 INCH OF GEL TO BRUSH TEETH DAILY IN THE EVENING / BRUSH THOROUGHLY ALONG GUMLINE IC: DENTAGEL, # 56 Gm, 11 Refills, Maintenance, 09/21/23 16:44:00 EST, [facility], 30, USE 1/4 INCH OF GEL TO BRUSH TEETH DAILY IN THE EVEN... Start Date: 09/21/23 Status: Ordered Carolyn-jag 8.6 mg oral tablet 1 tablet, By Mouth, Daily in PM, FOR CONSTIPATION / SEE MILK OF MAG ORDERS / IC: SENNA 8.6 MG, # 15tablet, 6 Refills, Maintenance, 10/14/22 8:03:00 EST, [facility], 162.56, cm, 07/04/22 8:33:00EDT, Height Start Date: 10/14/22 Status: Ordered Hospital Bed See Instructions, # 1 each, Refills 0, Tot. Refills 0, Maintenance, [facility] DX: Left hip fracture, seizure dis, impulse control disorder, atypical autism. Duration ongoing NPI#[id number] Height: 5'6 Weight: 137lbs, 03/22/23 13:55:... Start Date: 03/22/23 Status: Ordered Milk of Magnesia 8% oral suspension See Instructions, TAKE 2 TABLESPOONFULS (30 ML) BY MOUTH AT BEDTIME NEEDED FOR CONSTIPATION ON DAY 3 OF NO BM / SEE BISCOLAX SUPP ORDER 30ML=2,400MG, # 300 mL, 5 Refills, Acute, [facility], 162.56, cm, 02/24/20 9:30:00 EDT, Height Start Date: 10/30/20 Status: Ordered MILLITRIUM TABLET See Instructions, 30, 11, 11, 06/20/08 13:07:29, TAKE 1 TABLET BY MOUTH DAILY (VITAMIN), [facility] [address] [place] [address], Constant Indicator, MILLITRIUM TABLET Start Date: 06/20/08 Status: Ordered OCEAN SALINE NASAL MIST OCEAN SALINE NASAL MIST, See Instructions, # 1 each, Refills 2, Tot. Refills 2, Maintenance, use bid prn nasal dryness, 11/06/18 9:57:36 EST, [facility] Start Date: 11/06/18 Status: Ordered Polysporin 500 u-26944 u/gm ointment See Instructions, APPLY A THIN LAYER TOPICALLY TWICE DAILY NEEDED TO RED, IRRITATED SKIN X 7 DAYS / SEE ANCILLARY ORDERS (BACITRACIN-POLYMYXIN OINTMENT), # 28.3 Gm, 5 Refills, Maintenance, 04/18/23 8:59:00 EDT, [facility], 7, APPLY A THIN LAYE... Start Date: 04/18/23 Status: Ordered pravastatin 40 mg oral tablet See Instructions, TAKE 1 TABLET (40 MG) BY MOUTH DAILY IN PM FOR HYPERLIPIDEMIA, # 30 tablet, 5 Refills, Maintenance, 02/17/23 13:00:00 EDT, [facility], 162.56, cm, 07/04/22 8:33:00 EDT, Height Start Date: 02/17/23 Status: Ordered Profola oral tablet 1 tablet, By Mouth, Daily, # 30 tablet, 11 Refills, Maintenance, 05/19/23 10:41:00 EDT, [facility], Partial fill upon patient request if [...] (SUPHEDRIN EQUIVALENT), # 30 tablet, 11 Refills, [facility], 162.56, cm, 03/24/22 10:31:00 EDT, Height Start Date: 04/22/22 Status: Ordered SUDOGEST 30 MG TABLETS SUDOGEST 30 MG TABLETS, See Instructions, # 30 each, Refills 11, Tot. Refills 11, Maintenance, TAKE30 MG Q6H PRN PER DR CRANE FAX [phone], 02/01/19 9:46:36 EDT, Compound Start Date: 02/01/19 [...] mL, 1 Refills, Maintenance, 12/01/20 8:15:00 EST, [place], 1 sprays Topically 2 times a day, 162.56, cm, 02/24/20 9:30:00 EDT, Height Start Date: 12/01/20 Status: Ordered TUSSIN DM TUSSIN DM, See Instructions, # 420 mL, Refills 1, Tot. Refills 1, Maintenance, 10 ML PO Q4H PRN FORCOUGH AT BEDTIME PER DR CRANE FAX [phone], 05/22/20 8:48:00 EDT, [facility], 162.56, cm, 02/24/20 [...] Confirmed Active Vitamin D deficiency Confirmed Active 27559; repeat 2020 2colo 2005 nl, repeat 2015 3Colonoscopy 2016 positive polyp, repeat 2020. 4colo 2015 Social History Social History Type Response Smoking Status Never smoker entered on: 02/01/16 Sex Patient Care team information Care Team Personnel Name: Schuyler Crane MD Position: S Physician - Primary Care Member Role: PCP Address: Address: [address] [place] [address]- Care Team Related Persons Name: ELLE ALMEIDA Address: [address] [place] [address] Name: ZAK SHELL
--- OUTSIDE RECORDS SUMMARY | 2024-04-02 09:43 | XMS_ITS | Continuity of Care Document ---
Author Organization [facility] Salvatore Todd lt Address [address] [place] [address]- Care Team Providers Care Mechanic Welder Truck Driver Name Role Phone Schuyler Crane MD Primary Care Physician [facility] Date(s): 09/04/20 - 10/04/20 [facility] [address] [place] [address]- Allergies, Adverse Reactions, Alerts Substance Reaction Severity [...] 5 Refills, Soft Stop, 04/03/20 16:18:00 EDT, [facility], 162.56, cm, 02/24/20 9:30:00 EDT, Height Start Date: 04/03/20 Status: Ordered amLODIPine 10 mg oral tablet 10 mg, 1, tablet, By Mouth, Daily, # 90 tablet, Refills 1, Tot. Refills 1, Soft Stop, 04/09/20 13:02:00 EDT, Route to Pharmacy Electronically, [facility], 162.56, cm, 02/24/20 9:30:00 EDT, Height Start Date: 04/09/20 Status: Ordered ANTACID 500 MG CHEWABLE TAB ANTACID 500 MG CHEWABLE TAB, See Instructions, # 90 each, Refills 3, Tot. Refills 3, Maintenance, TAKE 1 TABLET PO TID FOR OSTEOPOROSIS. MAY CRUSH TABLET PER DR ROSA MARIA CRUZ [phone], 07/20/18 12:11:49EDT, Compound Start Date: 07/20/18 Status: Ordered Bisco-Lax 10 mg rectal suppository See Instructions, INSERT 1 SUPP (10MG) INTO RECTUM NEEDED IF MILK OF MAGNESIA INEFFECTIVE AFTER 8 HRS/BISAC- EVAC EQUIVALENT/ IF SUPPOSITORY INEFFECTIVE AF, # 7 supp, 11 Refills, Acute, [facility], 162.56, cm, 02/24/20 9:30:00 EDT, Height Start Date: 03/30/20 Status: Ordered Blood Pressure Monitor See Instructions, 1, 0, 0, 06/11/07 11:11:37, PRN, HTN, ADS OPPTHS, [facility] [address] [place] [id number] Start Date: 06/11/07 Status: Ordered calcium carbonate 500 mg (200 mg elemental calcium) oral tablet, chewable 500 mg, 1, tablet, By Mouth, 3 times a day, PER DR CRANE, # 90 tablet, Refills 11, Tot. Refills 11, Maintenance, 12/09/19 14:35:00 EDT, Route to Pharmacy Electronically, [facility], 162.56, cm, 02/12/19 10:36:00 EDT, Height [...] Gm, 11 Refills, Maintenance, 08/07/20 11:11:00 EST, [facility], 30, USE 1/4 INCH OF GEL TO BRUSH TEETH DAILY IN THE EVENING / BRUSH T... Start Date: 08/07/20 Status: Ordered docusate sodium 100 mg oral capsule 1 capsule, By Mouth, 2 times a day, # 60 capsule, 5 Refills, Maintenance, 07/30/20 15:26:00 EST, [facility], 162.56, cm, 02/24/20 9:30:00 EDT, Height Start Date: 07/30/20 Status: Ordered EARWAX TREATMENT DROPS 6.5% EARWAX TREATMENT DROPS 6.5%, See Instructions, # 1 each, Refills 11, Tot. Refills 11, Maintenance, USE DIRECTED FAX [phone], 10/01/19 11:14:00 EST, [facility];, Compound Start Date: [...] TAKE 1 TABLET BY MOUTH DAILY (VITAMIN), [address] [place] [address], Constant Indicator, MILLITRIUM TABLET Start Date: 06/20/08 [...] bid prn nasal dryness PER DAWIT STOREY PUBLISHER ASSISTANT-C FAX [phone], 11/02/18 14:15:30 EST, [facility] Start Date: 11/02/18 Status: Ordered Ocuflox 0.3% solution 2 drops, Eyes, Both, 4 times a day, # 10 mL, 0 Refills, Maintenance, 01/10/17 14:21:09, Ophth Solution, 2 drops Eyes, Both 4 times a day Start Date: 01/10/17 Status: Ordered Polysporin 500 u-27108 u/gm ointment See Instructions, APPLY A THIN LAYER TOPICALLY TWICE DAILY NEEDED TO RED, IRRITATED SKIN X 7 DAYS / SEE ANCILLARY ORDERS (BACITRACIN-POLYMYXIN OINTMENT), # 28.3 Gm, 5 Refills, Acute, [facility], 7, APPLY A THIN LAYER TOPICALLY TWICE DAILY N... Start Date: 03/30/20 Status: Ordered Polysporin 500 u-34264 u/gm ointment See Instructions, APPLY A THIN [...] tablet, 1 Refills, Maintenance, 09/08/20 10:55:00 EST, [facility], 162.56, cm, 02/24/20 9:30:00 EDT, Height [...] MG Q6H PRN PER DR CRANE FAX [phone], 02/01/19 9:46:36 EDT, [facility] Start Date: 02/01/19 [...] MOUTH QD PER DR ROSA MARIA HUGHESX [phone], 03/12/20 12:59:00 EDT, [facility], 162.56, cm, 02/24/20 9:30:00 EDT, Height Start Date: 03/12/20 Status: Ordered Tinactin 1% spray 1 sprays, Topically, 2 times a day, # 120 mL, 1 Refills, Maintenance, 11/01/19 10:28:00 EST, [place],[facility], 1 sprays Topically 2 times a day, 162.56, cm, 02/12/19 10:36:00 EDT, Height Start Date: 11/01/19 Status: Ordered TUSSIN KUSHAL [place] DM, See Instructions, # 420 mL, Refills 1, Tot. Refills 1, Maintenance, 10 ML PO Q4H PRN FORCOUGH AT BEDTIME PER DR CRANE FAX [phone], 05/22/20 8:48:00 EDT, [facility], 162.56, cm, 02/24/20 9:30:00 EDT, Height Start Date: 05/22/20 Status: Ordered Tylenol 325 mg oral tablet 650 mg, 2, tablet, By Mouth, Every 4 hours, PER DR CRANE, # 168 tablet, Refills 5, Tot. Refills 5, Maintenance, 10/04/19 10:27:00 EST, Route to Pharmacy Electronically, [facility], 162.56, cm, 02/12/19 10:36:00 EDT, Height [...] Active Underweight(Confirmed) Active Vitamin D deficiency(Confirmed) Active 78046; repeat 2020 2colo 2006 nl, repeat 2015 3Colonoscopy 2016 positive polyp, repeat 2020. 4colo 2015 Social History Social History Type Response Smoking Status Never smoker entered on: 02/01/16 Sex
--- OUTSIDE RECORDS SUMMARY | 2024-04-02 09:44 | XMS_ITS | Continuity of Care Document ---
Author Organization [facility] Salvatore Todd lt Address [address] [place] [address]- Care Team Providers Care Alumni Relations Officer Name Role Phone Schuyler Crane MD Primary Care Physician [facility]22 - 02/13/22 [facility] Adult [address] [place] [address]- Allergies, Adverse Reactions, Alerts Substance Reaction Severity [...] Replace Required Details, Route to Pharmacy Electronically, [facility], 162.56, cm, 02/25/21 9:29:00 EDT, He... Start Date: 08/31/21 Status: Ordered amLODIPine 10 mg oral tablet See Instructions, TAKE 1 TABLET (10 MG) BY MOUTH DAILY IN AM FOR HYPERTENSION, # 30 tablet, 5 Refills, [facility], 162.56, cm, 02/25/21 9:29:00 EDT, Height Start Date: 09/30/21 Status: Ordered ANTACID 500 MG CHEWABLE TAB ANTACID 500 MG CHEWABLE TAB, See Instructions, # 90 each, Refills 3, Tot. Refills 3, Maintenance, TAKE 1 TABLET PO TID FOR OSTEOPOROSIS. MAY CRUSH TABLET PER DR ROSA MARIA CRUZ [phone], 07/20/18 12:11:49EDT, Compound Start Date: 07/20/18 Status: Ordered bisacodyl 10 mg rectal suppository See Instructions, INSERT 1 SUPP (10MG) INTO RECTUM NEEDED IF MILK OF MAGNESIA INEFFECTIVE AFTER 8 HRS/BISAC- EVAC EQUIVALENT/ IF SUPPOSITORY INEFFECTIVE AFTER 4 HRS CALL MD, # 7 supp, 11 Refills, Acute, [facility], 162.56, cm, 02/25/21 9:29:00... Start Date: 04/15/21 Status: Ordered Blood Pressure Monitor See Instructions, 1, 0, 0, 06/11/07 11:11:37, PRN, HTN, ADS OPPTHS, [facility] [address] [place] [address] Start Date: 06/11/07 Status: Ordered calcium carbonate 500 mg (200 mg elemental calcium) oral tablet, chewable 500 mg, 1, tablet, By Mouth, 3 times a day, PER DR CRANE, # 90 tablet, Refills 5, Tot. Refills 5, Maintenance, 09/29/21 14:35:00 EST, Route to Pharmacy Electronically, [facility], 162.56, cm, 02/25/21 9:29:00 EDT, Height Start Date: 09/29/21 Stop Date: 03/28/22 Status: Ordered cetirizine 10 mg oral tablet 1 tablet, By Mouth, Daily in AM, FOR SEASONAL ALLERGIES FROM DECEMBER THROUGH JUNE (START 12/24 / ) SEE ANCILLARY ORDERS., # 30 tablet, 5 Refills, [facility], 162.56, cm, 12/06/21 13:34:00 EDT, Height [...] 100 MG), # 60 capsule, 5 Refills, [facility], 162.56, cm, 12/06/21 13:34:00 EDT, Height Start Date: 01/13/22 Status: Ordered EARWAX TREATMENT DROPS 6.5% EARWAX TREATMENT DROPS 6.5%, See Instructions, # 1 each, Refills 11, Tot. Refills 11, Maintenance, USE DIRECTED FAX [phone], 12/02/20 14:40:00 EST, [facility], 162.56, cm, 02/24/20 9:30:00 EDT, Height Start Date: 12/02/20 Status: Ordered fluoride 1.1% topical gel See Instructions, USE 1/4 INCH OF GEL TO BRUSH TEETH DAILY IN THE EVENING / BRUSH THOROUGHLY ALONG GUMLINE IC: DENTAGEL, # 56 Gm, 11 Refills, [facility], 30, USE 1/4 INCH OF GEL [...] 30ML=2,400MG, # 300 mL, 5 Refills, Acute, [facility], 162.56, cm, 02/24/20 9:30:00 EDT, Height Start Date: 10/30/20 Status: Ordered MILLITRIUM TABLET See Instructions, 30, 11, 11, 06/20/08 13:07:29, TAKE 1 TABLET BY MOUTH DAILY (VITAMIN), [facility] [address] [place] [address], Constant Indicator, MILLITRIUM TABLET Start Date: 06/20/08 [...] prn nasal dryness PER DAWIT STOREY S[employer]IOR [employer]S ADMINISTRATOR-C FAX [phone], 11/02/18 14:15:30 EST, Compound Start Date: 11/02/18 Status: Ordered Ocuflox 0.3% solution 2 drops, Eyes, Both, 4 times a day, # 10 mL, 0 Refills, Maintenance, 01/10/17 14:21:09, Ophth Solution, 2 drops Eyes, Both 4 times a day Start Date: 01/10/17 Status: Ordered Polysporin 500 u-40406 u/gm ointment See Instructions, APPLY A THIN LAYER TOPICALLY TWICE DAILY NEEDED TO RED, IRRITATED SKIN X 7 DAYS / SEE ANCILLARY ORDERS (BACITRACIN-POLYMYXIN OINTMENT), # 28.3 Gm, 5 Refills, Maintenance, 04/14/21 14:39:00 EDT, [facility], 7, APPLY A THIN LAY... Start Date: 04/14/21 Status: Ordered pravastatin 40 mg oral tablet 1 tablet, By Mouth, Daily, IN PM FOR HYPERLIPIDEMIA., # 30 tablet, 5 Refills, Maintenance, 09/03/2112:22:00 EST, [facility], 162.56, cm, 02/25/21 9:29:00 EDT, Height Start Date: 09/03/21 Status: Ordered RisperDAL 0.25 mg oral tablet [...] MG Q6H PRN PER DR CRANE FAX [phone], 02/01/19 9:46:36 EDT, Compound Start Date: 02/01/19 Status: Ordered Suphedrin 30 mg oral tablet See Instructions, TAKE 1 TAB (30 MG) BY MOUTH EVERY 6 HRS NEEDED FOR NASAL CONGESTION/ SEE ANCILLARY ORDERS (SUDOGEST EQUIVALENT), # 30 tablet, 11 Refills, Acute, [facility], 162.56, cm, 02/24/20 9:30:00 EDT, Height Start Date: 05/22/20 Status: Ordered THERA CAPLETS THERA CAPLETS, See Instructions, # 30 each, Refills 5, Tot. Refills 5, Maintenance, TAKE ONE CAPLETBY MOUTH QD PER DR CRANE FAX [phone], 10/08/20 11:48:00 EST, [facility], 162.56, cm, 02/24/20 9:30:00 EDT, Height Start Date: 10/08/20 Status: Ordered Thera oral tablet 1 tablet, By Mouth, Daily in AM, VITAMIN., # 30 tablet, 5 Refills, Maintenance, 08/27/21 13:53:00 EST, [facility], 30, 1 tablet By Mouth Daily [...] mL, 1 Refills, Maintenance, 12/01/20 8:15:00 EST, [place], [facility], 1 sprays Topically 2 times a day, 162.56, cm, 02/24/20 9:30:00 EDT, Height Start Date: 12/01/20 Status: Ordered CHAKASSIN KUSHAL FATIMA, See Instructions, # 420 mL, Refills 1, Tot. Refills 1, Maintenance, 10 ML PO Q4H PRN FORCOUGH AT BEDTIME PER DR CRANE FAX [phone], 05/22/20 8:48:00 EDT, [facility], 162.56, cm, 02/24/20 [...] Seizure disorder(Confirmed) Active Vitamin D deficiency(Confirmed) Active 22323; repeat 2020 2colo 2006 nl, repeat 2015 3Colonoscopy 2016 positive polyp, repeat 2020. 4colo 2015 Social History Social History Type Response Smoking Status Never smoker entered on: 02/01/16 Sex
--- OUTSIDE RECORDS SUMMARY | 2024-04-02 09:44 | XMS_ITS | Continuity of Care Document ---
Author Organization [facility] Todd lt Address [address] [place] [address]- Care Team Providers Care Daub Color Mixer Name Role Phone Schuyler Crane MD Primary Care Physician [phone] [facility] 03/28[facility]20 - 04/27/20 [facility] Adult [address] [place] [address]- [facility] Allergies, Adverse Reactions, Alerts Substance Reaction [...] 5 Refills, Soft Stop, 04/03/20 16:18:00 EDT, [facility], 162.56, cm, 02/24/20 9:30:00 EDT, Height Start Date: 04/03/20 Status: Ordered amLODIPine 10 mg oral tablet 10 mg, 1, tablet, By Mouth, Daily, # 90 tablet, Refills 1, Tot. Refills 1, Soft Stop, 04/09/20 13:02:00 EDT, Route to Pharmacy Electronically, [facility], 162.56, cm, 02/24/20 9:30:00 EDT, Height Start Date: 04/09/20 Status: Ordered ANTACID 500 MG CHEWABLE TAB ANTACID 500 MG CHEWABLE TAB, See Instructions, # 90 each, Refills 3, Tot. Refills 3, Maintenance, TAKE 1 TABLET PO TID FOR OSTEOPOROSIS. MAY CRUSH TABLET PER DR CRANE FX [phone], 07/20/18 12:11:49EDT, Compound Start Date: 07/20/18 Status: Ordered Bisco-Lax 10 mg rectal suppository See Instructions, INSERT 1 SUPP (10MG) INTO RECTUM NEEDED IF MILK OF MAGNESIA INEFFECTIVE AFTER 8 HRS/BISAC- EVAC EQUIVALENT/ IF SUPPOSITORY INEFFECTIVE AF, # 7 supp, 11 Refills, Acute, [facility], 162.56, cm, 02/24/20 9:30:00 EDT, Height Start Date: 03/30/20 Status: Ordered Blood Pressure Monitor See Instructions, 1, 0, 0, 06/11/07 11:11:37, PRN, HTN, ADS OPPTHS, [facility] [address] [place] [address] Start Date: 06/11/07 Status: Ordered calcium carbonate 500 mg (200 mg elemental calcium) oral tablet, chewable 500 mg, 1, tablet, By Mouth, 3 times a day, PER DR CRANE, # 90 tablet, Refills 11, Tot. Refills 11, Maintenance, 12/09/19 14:35:00 EDT, Route to Pharmacy Electronically, [facility], 162.56, cm, 02/12/19 10:36:00 EDT, Height [...] 02/06/20 12:14:00 EDT, Route to Pharmacy Electronically, [facility], 162.56, cm, 02/12/19 10:36:00 EDT, Height [...] Tot. Refills 11, Maintenance, USE DIRECTED FAX [phone], 10/01/19 11:14:00 EST, [facility];, Compound Start Date: [...] TAKE 1 TABLET BY MOUTH DAILY (VITAMIN), [facility] [address] [place] [address], Constant Indicator, MILLITRIUM TABLET Start Date: 06/20/08 [...] bid prn nasal dryness PER DAWIT STOREY CESSPOOL CLEANER-C FAX [phone], 11/02/18 14:15:30 EST, Compound Start Date: 11/02/18 Status: Ordered Ocuflox 0.3% solution 2 drops, Eyes, Both, 4 times a day, # 10 mL, 0 Refills, Maintenance, 01/10/17 14:21:09, Ophth Solution, 2 drops Eyes, Both 4 times a day Start Date: 01/10/17 Status: Ordered Polysporin 500 u-68057 u/gm ointment See Instructions, APPLY A THIN LAYER TOPICALLY TWICE DAILY NEEDED TO RED, IRRITATED SKIN X 7 DAYS / SEE ANCILLARY ORDERS (BACITRACIN-POLYMYXIN OINTMENT), # 28.3 Gm, 5 Refills, Acute, [facility], 7, APPLY A THIN LAYER TOPICALLY TWICE DAILY N... Start Date: 03/30/20 Status: Ordered Polysporin 500 u-64016 u/gm ointment See Instructions, APPLY A THIN [...] MG Q6H PRN PER DR CRANE FAX [phone], 02/01/19 9:46:36 EDT, Compound Start Date: 02/01/19 Status: Ordered THERA CAPLETS THERA CAPLETS, See Instructions, # 30 each, Refills 5, Tot. Refills 5, Maintenance, TAKE ONE CAPLETBY MOUTH QD PER DR CRANE FAX [phone], 03/12/20 12:59:00 EDT, Compound, 162.56, cm, 02/24/20 9:30:00 EDT, Height Start Date: 03/12/20 Status: Ordered Tinactin 1% spray 1 sprays, Topically, 2 times a day, # 120 mL, 1 Refills, Maintenance, 11/01/19 10:28:00 EST, [place], 1 sprays Topically 2 times a day, 162.56, cm, 02/12/19 10:36:00 EDT, Height Start Date: 11/01/19 Status: Ordered TUSSIN DM TUSSIN DM, See Instructions, # 420 mL, Refills 1, Tot. Refills 1, Maintenance, 10 ML PO Q4H PRN FORCOUGH AT BEDTIME PER DR CRANE FAX [phone], 04/23/18 12:14:04 EDT, Compound Start Date: 04/23/18 Status: Ordered Tylenol 325 mg oral tablet 650 mg, 2, tablet, By Mouth, Every 4 hours, PER DR CRANE, # 168 tablet, Refills 5, Tot. Refills 5, Maintenance, 10/04/19 10:27:00 EST, Route to Pharmacy Electronically, [facility], 162.56, cm, 02/12/19 10:36:00 EDT, Height [...] Active Underweight(Confirmed) Active Vitamin D deficiency(Confirmed) Active 94067; repeat 2020 2colo 2006 nl, repeat 2015 3Colonoscopy 2016 positive polyp, repeat 2020. 4colo 2015 Social History Social History Type Response Smoking Status Never smoker entered on: 02/01/16 Sex
--- OUTSIDE RECORDS SUMMARY | 2024-04-02 09:44 | XMS_ITS | Continuity of Care Document ---
Author Organization [facility] Salvatore Todd lt Address [address] [place] [address]- Care Team Providers Care Transformation Manager Name Role Phone Schuyler Crane MD Primary Care Physician [facility] Date[facility]s): 04/12/23 - 05/12/23 [facility] Adult [address] [place] [address]- Allergies, Adverse Reactions, Alerts Substance Reaction Severity [...] 10/05/20 Recorded influenza virus vaccine, inactivated 06/21/21 Alcidse rded influenza virus vaccine, inactivated 07/22/20 Give [...] 08/25/04 G cristy 1Result Comment: Td - [facility]# [id number] 2Result Comment: PCV23 - [facility]# [id number] 3Result Comment: [facility]# [id number] 4Result Comment: [10/28/2016] pharmacy 5Admin Note: given [...] 10/14/22 8:03:00 EST, Route to Pharmacy Electronically, [facility], 162.56, cm, 07/04/22 8:33:00 EDT, Height Start Date: 10/14/22 Status: Ordered All Day Allergy 10 mg oral tablet See Instructions, TAKE 1 TABLET (10 MG) BY MOUTH DAILY IN THE AM FOR SEASONAL ALLERGIES FROM DECEMBER THROUGH JUNE (START 12/24 / END 07/25) SEE ANCILLARY ORDERS, # 30 tablet, 2 Refills, Maintenance, 04/13/23 14:33:00 EDT, [facility], 162.56, cm, 0... Start Date: 04/13/23 Status: Ordered amLODIPine 10 mg oral tablet 1 tablet, By Mouth, Daily in AM, FOR HYPERTENSION., # 30 tablet, 5 Refills, Maintenance, 04/19/23 23:11:00 EDT, [facility], 162.56, cm, 04/10/23 7:35:00 EDT, Height Start Date: 04/19/23 Status: Ordered ANTACID 500 MG CHEWABLE TAB ANTACID 500 MG CHEWABLE TAB, See Instructions, # 90 each, Refills 3, Tot. Refills 3, Maintenance, TAKE 1 TABLET PO TID FOR OSTEOPOROSIS. MAY CRUSH TABLET PER DR ROSA MARIA CRUZ [phone], 07/20/18 12:11:49EDT, Compound Start Date: 07/20/18 Status: Ordered benzonatate 100 mg oral capsule 1 capsule, By Mouth, 3 times a day, PRN NEEDED FOR COUGH / IF NO IMPROVEMENT IN 3 DAYS NOTIFY MD/ IC, JAGRUTI, # 21 capsule, 0 Refills, Maintenance, 02/17/23 8:57:00 EDT, [facility], 162.56, cm, 07/04/22 8:33:00 EDT, Height Start Date: 02/17/23 Status: Ordered bisacodyl 10 mg rectal suppository See Instructions, INSERT 1 SUPP (10MG) INTO RECTUM NEEDED IF MILK OF MAGNESIA INEFFECTIVE AFTER 8 HRS/BISAC- EVAC EQUIVALENT/ IF SUPPOSITORY INEFFECTIVE AFTER 4 HRS CALL MD, # 7 supp, 11 Refills, Acute, [facility], 162.56, cm, 02/25/21 9:29:00... Start Date: 04/15/21 Status: Ordered Blood Pressure Monitor See Instructions, 1, 0, 0, 06/11/07 11:11:37, PRN, HTN, ADS OPPTHS, [facility] [place] [address] Start Date: 06/11/07 Status: Ordered calcium carbonate 500 mg (200 mg elemental calcium) oral tablet, chewable 1, tablet, By Mouth, 3 times a day, CRUSH. IC: CALCIUM CARBONATE, # 90 tablet, Refills 5, Maintenance, 02/17/23 8:57:00 EDT, Route to Pharmacy Electronically, [facility], 162.56, cm, 07/04/22 8:33:00 EDT, Height Start Date: 02/17/23 Status: Ordered carbamide peroxide 6.5% otic solution See Instructions, INSTILL 4 DROPS INTO EACH EAR TWICE DAILY FOR 5 DAYS EACH MONTH / IC: CARBAMIDE PEROXIDE (EAR DROPS 6.5%), # 15 mL, 11 Refills, Maintenance, 08/21/22 7:49:00 EST, [facility], 30, INSTILL 4 DROPS INTO EACH [...] capsule, 5 Refills, Maintenance, 10/20/22 6:09:00 EST, [facility], 162.56, cm, 07/04/22 8:33:00 EDT, Height Start Date: 10/20/22 Status: Ordered EARWAX TREATMENT DROPS 6.5% EARWAX TREATMENT DROPS 6.5%, See Instructions, # 1 each, Refills 11, Tot. Refills 11, Maintenance, USE DIRECTED FAX [phone], 12/02/20 14:40:00 EST, [facility], 162.56, cm, 02/24/20 9:30:00 EDT, Height Start Date: 12/02/20 Status: Ordered fluoride 1.1% topical gel See Instructions, USE 1/4 INCH OF GEL TO BRUSH TEETH DAILY IN THE EVENING / BRUSH THOROUGHLY ALONG GUMLINE IC: DENTAGEL, # 56 Gm, 11 Refills, [facility], 30, USE 1/4 INCH OF GEL TO BRUSH TEETH DAILY IN THE EVENING / BRUSH THOROUGHLY ALONG GUMLINE... Start Date: 01/28/22 Status: Ordered Carolyn-jag 8.6 mg oral tablet 1 tablet, By Mouth, Daily in PM, FOR CONSTIPATION / SEE MILK OF MAG ORDERS / IC: SENNA 8.6 MG, # 15tablet, 6 Refills, Maintenance, 10/14/22 8:03:00 EST, [facility], 162.56, cm, 07/04/22 8:33:00EDT, Height Start Date: 10/14/22 Status: Ordered Hospital Bed See Instructions, # 1 each, Refills 0, Tot. Refills 0, Maintenance, [facility] DX: Left hip fracture, seizure dis, impulse control disorder, atypical autism. Duration ongoing NPI#[id number] Height: 5'6 Weight: 137lbs, 03/22/23 13:55:... Start Date: 03/22/23 Status: Ordered Milk of Magnesia 8% oral suspension See Instructions, TAKE 2 TABLESPOONFULS (30 ML) BY MOUTH AT BEDTIME NEEDED FOR CONSTIPATION ON DAY 3 OF NO BM / SEE BISCOLAX SUPP ORDER 30ML=2,400MG, # 300 mL, 5 Refills, Acute, [facility], 162.56, cm, 02/24/20 9:30:00 EDT, Height Start Date: 10/30/20 Status: Ordered MILLITRIUM TABLET See Instructions, 30, 11, 11, 06/20/08 13:07:29, TAKE 1 TABLET BY MOUTH DAILY (VITAMIN), [facility] [address] [place] [address], Constant Indicator, MILLITRIUM TABLET Start Date: 06/20/08 Status: Ordered OCEAN SALINE NASAL MIST OCEAN SALINE NASAL MIST, See Instructions, # 1 each, Refills 2, Tot. Refills 2, Maintenance, use bid prn nasal dryness, 11/06/18 9:57:36 EST, [facility] Start Date: 11/06/18 Status: Ordered Polysporin 500 u-68062 u/gm ointment See Instructions, APPLY A THIN LAYER TOPICALLY TWICE DAILY NEEDED TO RED, IRRITATED SKIN X 7 DAYS / SEE ANCILLARY ORDERS (BACITRACIN-POLYMYXIN OINTMENT), # 28.3 Gm, 5 Refills, Maintenance, 04/18/23 8:59:00 EDT, [facility], 7, APPLY A THIN LAYE... Start Date: 04/18/23 Status: Ordered pravastatin 40 mg oral tablet See Instructions, TAKE 1 TABLET (40 MG) BY MOUTH DAILY IN PM FOR HYPERLIPIDEMIA, # 30 tablet, 5 Refills, Maintenance, 02/17/23 13:00:00 EDT, [facility], 162.56, cm, 07/04/22 8:33:00 EDT, Height [...] (SUPHEDRIN EQUIVALENT), # 30 tablet, 11 Refills, [facility], 162.56, cm, 03/24/22 10:31:00 EDT, Height Start Date: 04/22/22 Status: Ordered SUDOGEST 30 MG TABLETS SUDOGEST 30 MG TABLETS, See Instructions, # 30 each, Refills 11, Tot. Refills 11, Maintenance, TAKE30 MG Q6H PRN PER DR CRANE FAX [phone], 02/01/19 9:46:36 EDT, Compound Start Date: 02/01/19 Status: Ordered THERA CAPLETS THERA CAPLETS, See Instructions, # 30 each, Refills 5, Tot. Refills 5, Maintenance, TAKE ONE CAPLETBY MOUTH QD PER DR CRANE FAX [phone], 10/08/20 11:48:00 EST, [facility], 162.56, cm, 02/24/20 [...] mL, 1 Refills, Maintenance, 12/01/20 8:15:00 EST, [place], 1 sprays Topically 2 times a day, 162.56, cm, 02/24/20 9:30:00 EDT, Height Start Date: 12/01/20 Status: Ordered TUSSIN DM TUSSIN DM, See Instructions, # 420 mL, Refills 1, Tot. Refills 1, Maintenance, 10 ML PO Q4H PRN FORCOUGH AT BEDTIME PER DR CRANE FAX [phone], 05/22/20 8:48:00 EDT, [facility], 162.56, cm, 02/24/20 [...] Confirmed Active Vitamin D deficiency Confirmed Active 73732; repeat 2020 2colo 2006 nl, repeat 2015 3Colonoscopy 2016 positive polyp, repeat 2020. 4colo 2015 Social History Social History Type Response Smoking Status Never smoker entered on: 02/01/16 Sex Patient Care team information Care Team Personnel Name: Rosa Maria HUSTON, Schuyler Pope Position: [facility] Physician - Primary Care Member Role: PCP Address: Address: [address] [place] [address]- Care Team Related Persons Name: ELLE ALMEIDA Address: home [address] [place] [id number] Name: ZAK SHELL
--- OUTSIDE RECORDS SUMMARY | 2024-04-02 09:44 | XMS_ITS | Continuity of Care Document ---
Author Organization [facility] Salvatore Todd lt Address [address] [place] [address]- Care Team Providers Care Custom Ski Maker Name Role Phone Schuyler Crane MD Primary Care Physician [place] [facility] [place] 12[place]13/21 [facility] Adult [address] [place] [address]- Attending Physician: Not on Staff, Attending MD Referring Physician: Schuyler Crane MD Allergies, [...] Replace Required Details, Route to Pharmacy Electronically, [facility], 162.56, cm, 02/25/21 9:29:00 EDT, He... Start Date: 08/31/21 Status: Ordered amLODIPine 10 mg oral tablet See Instructions, TAKE 1 TABLET (10 MG) BY MOUTH DAILY IN AM FOR HYPERTENSION, # 30 tablet, 5 Refills, [facility], 162.56, cm, 02/25/21 9:29:00 EDT, Height Start Date: 09/30/21 Status: Ordered ANTACID 500 MG CHEWABLE TAB ANTACID 500 MG CHEWABLE TAB, See Instructions, # 90 each, Refills 3, Tot. Refills 3, Maintenance, TAKE 1 TABLET PO TID FOR OSTEOPOROSIS. MAY CRUSH TABLET PER DR ROSA MARIA CRUZ [phone], 07/20/18 12:11:49EDT, Compound Start Date: 07/20/18 Status: Ordered bisacodyl 10 mg rectal suppository See Instructions, INSERT 1 SUPP (10MG) INTO RECTUM NEEDED IF MILK OF MAGNESIA INEFFECTIVE AFTER 8 HRS/BISAC- EVAC EQUIVALENT/ IF SUPPOSITORY INEFFECTIVE AFTER 4 HRS CALL , # 7 supp, 11 Refills, Acute, [facility], 162.56, cm, 02/25/21 9:29:00... Start Date: 04/15/21 Status: Ordered Blood Pressure Monitor See Instructions, 1, 0, 0, 06/11/07 11:11:37, PRN, HTN, ADS OPPTHS, [facility] [id number] [place] [address] Start Date: 06/11/07 Status: Ordered calcium carbonate 500 mg (200 mg elemental calcium) oral tablet, chewable 500 mg, 1, tablet, By Mouth, 3 times a day, PER DR CRANE, # 90 tablet, Refills 5, Tot. Refills 5, Maintenance, 09/29/21 14:35:00 EST, Route to Pharmacy Electronically, [facility], 162.56, cm, 02/25/21 9:29:00 EDT, Height Start Date: 09/29/21 Stop Date: 03/28/22 Status: Ordered cetirizine 10 mg oral tablet See Instructions, TAKE 1 TABLET (10 MG) BY MOUTH DAILY IN THE AM FOR SEASONAL ALLERGIES FROM DECEMBER THROUGH JUNE (START 12/24) SEE ANCILLARY ORDERS, # 30 tablet, 5 Refills, Maintenance, [facility], 162.56, cm, 02/25/21 9:29:00 EDT, He... Start Date: 02/25/21 Status: Ordered cetirizine 10 mg oral tablet 1 tablet, By Mouth, Daily in AM, FOR SEASONAL ALLERGIES FROM DECEMBER THROUGH JUNE (START 12/24) SEE ANCILLARY ORDERS., # 30 tablet, 5 Refills, Maintenance, 02/25/21 13:04:00 EDT, [facility], 162.56, cm, 02/25/21 9:29:00 EDT, Height [...] Gm, 11 Refills, Maintenance, 08/07/20 11:11:00 EST, [facility], 30, USE 1/4 INCH OF GEL TO BRUSH TEETH DAILY IN THE EVENING / BRUSH T... Start Date: 08/07/20 Status: Ordered docusate sodium 100 mg oral capsule See Instructions, TAKE 1 CAPSULE (100 MG) BY MOUTH TWICE DAILY FOR CONSTIPATION (DOCUSATE SODIUM 100 MG), # 60 capsule, 5 Refills, [facility], 162.56, cm, 02/25/21 9:29:00 EDT, Height Start Date: 07/23/21 Status: Ordered EARWAX TREATMENT DROPS 6.5% EARWAX TREATMENT DROPS 6.5%, See Instructions, # 1 each, Refills 11, Tot. Refills 11, Maintenance, USE DIRECTED FAX [phone], 12/02/20 14:40:00 EST, [facility];, [facility], 162.56, cm, [...] and rub in gently and completely (left scalp/protestant). May apply BID for 4-6 weeks or [...] TAKE 1 TABLET BY MOUTH DAILY (VITAMIN), [facility] [address] [place] [address], Constant Indicator, MILLITRIUM TABLET Start Date: 06/20/08 [...] bid prn nasal dryness PER DAWIT STOREY STICKER HAND-C FAX [phone], 11/02/18 14:15:30 EST, Compound Start Date: 11/02/18 Status: Ordered Ocuflox 0.3% solution 2 drops, Eyes, Both, 4 times a day, # 10 mL, 0 Refills, Maintenance, 01/10/17 14:21:09, Ophth Solution, 2 drops Eyes, Both 4 times a day Start Date: 01/10/17 Status: Ordered Polysporin 500 u-46366 u/gm ointment See Instructions, APPLY A THIN [...] 30 tablet, 5 Refills, Maintenance, 09/03/2112:22:00 EST, [facility], 162.56, cm, 02/25/21 9:29:00 EDT, Height [...] MG Q6H PRN PER DR CRANE FAX [phone], 02/01/19 9:46:36 EDT, Compound Start Date: 02/01/19 Status: Ordered Suphedrin 30 mg oral tablet See Instructions, TAKE 1 TAB (30 MG) BY MOUTH EVERY 6 HRS NEEDED FOR NASAL CONGESTION/ SEE ANCILLARY ORDERS (SUDOGEST EQUIVALENT), # 30 tablet, 11 Refills, Acute, [facility], 162.56, cm, 02/24/20 9:30:00 EDT, Height Start Date: 05/22/20 Status: Ordered THERA CAPLETS THERA CAPLETS, See Instructions, # 30 each, Refills 5, Tot. Refills 5, Maintenance, TAKE ONE CAPLETBY MOUTH QD PER DR CRANE FAX [phone], 10/08/20 11:48:00 EST, [facility], 162.56, cm, 02/24/20 9:30:00 EDT, Height Start Date: 10/08/20 Status: Ordered Thera oral tablet 1 tablet, By Mouth, Daily in AM, VITAMIN., # 30 tablet, 5 Refills, Maintenance, 08/27/21 13:53:00 EST, [facility], 30, 1 tablet By Mouth Daily [...] mL, 1 Refills, Maintenance, 12/01/20 8:15:00 EST, [place], [facility], 1 sprays Topically 2 times a day, 162.56, cm, 02/24/20 9:30:00 EDT, Height Start Date: 12/01/20 Status: Ordered CHAKASSIN KUSHAL FATIMA, See Instructions, # 420 mL, Refills 1, Tot. Refills 1, Maintenance, 10 ML PO Q4H PRN FORCOUGH AT BEDTIME PER DR CRANE FAX [phone], 05/22/20 8:48:00 EDT, [facility], 162.56, cm, 02/24/20 [...] Seizure disorder(Confirmed) Active Vitamin D deficiency(Confirmed) Active 58404; repeat 2020 2colo 2005 nl, repeat 2015 3Colonoscopy 2016 positive polyp, repeat 2020. 4colo 2015 Vital Signs Most recent to oldest [Reference Range]: 1 Height 162.56 cm (12/06/21 1:34 PM) Weight 58.2 kg (12/06/21 1:34 PM) Body Mass Index [18.5-24.99] 22.02 (12/06/21 1:34 PM) Blood Pressure [90-138/55-84 mm Hg] 124/ 76mm Hg (12/06/21 1:34 PM) Mode of Delivery (Oxygen) Room air (12/06/21 1:34 PM) Blood pressure sites Arm, left (12/06/21 1:34 PM) Weight Obtained Via Standing scale (12/06/21 1:34 PM) Social History Social History Type Response Smoking Status Never smoker entered on: 02/01/16 Sex
--- OUTSIDE RECORDS SUMMARY | 2024-04-02 09:44 | XMS_ITS | Continuity of Care Document ---
Author Organization [facility] Salvatore Todd lt Address [address] [place] [address]- Care Team Providers Care Crust Sorter Name Role Phone Schuyler Crane MD Primary Care Physician [facility]counter [facility] Date(s): 01/19/24 - 02/18/24 [facility] [address] [place] [address]- Allergies, Adverse Reactions, Alerts Substance Reaction Severity [...] 08/25/04 Vishal muniz 1Result Comment: Td - [facility]# [id number] 2Result Comment: PCV23 - [facility]# [id number] 3Result Comment: [facility]# [id number] 4Result Comment: [10/28/2016] pharmacy 5Admin Note: given [...] 10/14/22 8:03:00 EST, Route to Pharmacy Electronically, [facility], 162.56, cm, 07/04/22 8:33:00 EDT, Height Start Date: 10/14/22 Status: Ordered acetaminophen 325 mg oral tablet 2, tablet, By Mouth, 2 times a day, PRN, # 20 tablet, Refills 0, Tot. Refills 0, Maintenance, NEEDED, 12/12/23 11:09:00 EDT, Route to Pharmacy Electronically, [facility], 162.56, cm, 12/11/2409:47:00 EDT, Height Start Date: 12/12/23 Stop Date: 12/17/23 Status: Ordered All Day Allergy 10 mg oral tablet 1 tablet, By Mouth, Daily in AM, FOR SEASONAL ALLERGIES FROM DECEMBER THROUGH JUNE (START 12/24 / ) SEE ANCILLARY ORDERS., # 30 tablet, 11 Refills, Maintenance, 12/21/23 7:45:00 EDT, [facility], 162.56, cm, 12/12/23 10:47:00 EDT, Height Start Date: 12/21/23 Status: Ordered amLODIPine 10 mg oral tablet 1 tablet, By Mouth, Daily in AM, FOR HYPERTENSION., # 30 tablet, 5 Refills, Maintenance, 10/25/23 0:22:00 EST, [facility], 162.56, cm, 10/03/23 9:00:00 EST, Height Start Date: 10/25/23 Status: Ordered ANTACID 500 MG CHEWABLE TAB ANTACID 500 MG CHEWABLE TAB, See Instructions, # 90 each, Refills 3, Tot. Refills 3, Maintenance, TAKE 1 TABLET PO TID FOR OSTEOPOROSIS. MAY CRUSH TABLET PER DR ROSAM ARIA CRUZ [phone], 07/20/18 12:11:49EDT, Compound Start Date: 07/20/18 Status: Ordered benzonatate 100 mg oral capsule 1 capsule, By Mouth, 3 times a day, PRN NEEDED FOR COUGH / IF NO IMPROVEMENT IN 3 DAYS NOTIFY MD/ IC, JAGRUTI, # 21 capsule, 0 Refills, Maintenance, 10/05/23 12:01:00 EST, [facility], 162.56, cm, 10/03/23 9:00:00 EST, Height Start Date: 10/05/23 Status: Ordered bisacodyl 10 mg rectal suppository See Instructions, INSERT 1 SUPP (10MG) INTO RECTUM NEEDED IF MILK OF MAGNESIA INEFFECTIVE AFTER 8 HRS/BISAC- EVAC EQUIVALENT/ IF SUPPOSITORY INEFFECTIVE AFTER 4 HRS CALL MD, # 7 supp, 11 Refills, Acute, [facility], 162.56, cm, 02/25/21 9:29:00... Start Date: 04/15/21 Status: Ordered Blood Pressure Monitor See Instructions, 1, 0, 0, 06/11/07 11:11:37, PRN, HTN, ADS OPPTHS, [facility] [id number] [place] [address] Start Date: 06/11/07 Status: Ordered calcium carbonate 500 mg (200 mg elemental calcium) oral tablet, chewable 1, tablet, By Mouth, 3 times a day, CRUSH. IC: CALCIUM CARBONATE, # 90 tablet, Refills 5, Maintenance, 10/02/23 8:50:00 EST, Route to Pharmacy Electronically, [facility], 162.56, cm, 09/19/23 10:28:00 EST, Height Start Date: 10/02/23 Status: Ordered carbamide peroxide 6.5% otic solution See Instructions, INSTILL 4 DROPS INTO EACH EAR TWICE DAILY FOR 5 DAYS EACH MONTH / IC: CARBAMIDE PEROXIDE (EAR DROPS 6.5%), # 15 mL, 11 Refills, Maintenance, 09/01/23 9:17:00 EST, [facility], 30, INSTILL 4 DROPS INTO EACH [...] capsule, 5 Refills, Maintenance, 11/23/23 20:00:00 EST, [facility], 162.56, cm, 10/03/23 9:00:00 EST, Height Start Date: 11/23/23 Status: Ordered EARWAX TREATMENT DROPS 6.5% EARWAX TREATMENT DROPS 6.5%, See Instructions, # 1 each, Refills 11, Tot. Refills 11, Maintenance, USE DIRECTED FAX [phone], 12/02/20 14:40:00 EST, [facility];, [facility], 162.56, cm, 02/24/20 9:30:00 EDT, Height Start Date: 12/02/20 Status: Ordered fluoride 1.1% topical gel See Instructions, USE 1/4 INCH OF GEL TO BRUSH TEETH DAILY IN THE EVENING / BRUSH THOROUGHLY ALONG GUMLINE IC: DENTAGEL, # 56 Gm, 11 Refills, Maintenance, 09/21/23 16:44:00 EST, [facility], 30, USE 1/4 INCH OF GEL TO BRUSH TEETH DAILY IN THE EVEN... Start Date: 09/21/23 Status: Ordered Carolyn-jag 8.6 mg oral tablet 1 tablet, By Mouth, Daily in PM, FOR CONSTIPATION / SEE MILK OF MAG ORDERS / IC: SENNA 8.6 MG, # 15tablet, 6 Refills, Maintenance, 10/14/22 8:03:00 EST, [facility], 162.56, cm, 07/04/22 8:33:00EDT, Height Start Date: 10/14/22 Status: Ordered Hospital Bed See Instructions, # 1 each, Refills 0, Tot. Refills 0, Maintenance, [facility] DX: Left hip fracture, seizure dis, impulse control disorder, atypical autism. Duration ongoing NPI#[id number] Height: 5'6 Weight: 137lbs, 03/22/23 13:55:... Start Date: 03/22/23 Status: Ordered ibuprofen 600 mg oral tablet 600 mg, 1, tablet, By Mouth, Every 8 hours, PRN for pain, # 30 tablet, Refills 0, Tot. Refills 0, Maintenance, 02/08/24 12:44:00 EDT, Route to Pharmacy Electronically, [facility], Partial fill upon patient request if the prescription is for a adeline... Start Date: 02/08/24 Status: Ordered Milk of Magnesia 8% oral suspension See Instructions, TAKE 2 TABLESPOONFULS (30 ML) BY MOUTH AT BEDTIME NEEDED FOR CONSTIPATION ON DAY 3 OF NO BM / SEE BISCOLAX SUPP ORDER 30ML=2,400MG, # 300 mL, 5 Refills, Acute, [facility], 162.56, cm, 02/24/20 9:30:00 EDT, Height Start Date: 10/30/20 Status: Ordered MILLITRIUM TABLET See Instructions, 30, 11, 11, 06/20/08 13:07:29, TAKE 1 TABLET BY MOUTH DAILY (VITAMIN), [facility] [address] [place] [address], Constant Indicator, MILLITRIUM TABLET Start Date: 06/20/08 [...] tablet, 0 Refills, Maintenance, 10/03/23 8:50:00 EST, [facility], Partial fill upon patient request if the prescription... Start Date: 10/03/23 Status: Ordered Polysporin 500 u-85189 u/gm ointment See Instructions, APPLY A THIN LAYER TOPICALLY TWICE DAILY NEEDED TO RED, IRRITATED SKIN X 7 DAYS / SEE ANCILLARY ORDERS (BACITRACIN-POLYMYXIN OINTMENT), # 28.3 Gm, 5 Refills, Maintenance, 04/18/23 8:59:00 EDT, [facility], 7, APPLY A THIN LAYE... Start Date: 04/18/23 Status: Ordered pravastatin 40 mg oral tablet 1 tablet, By Mouth, Daily, IN PM FOR HYPERLIPIDEMIA., # 30 tablet, 5 Refills, Maintenance, 248:50:00 EST, [facility], 162.56, cm, 09/19/23 10:28:00 EST, Height Start Date: 10/02/23 Status: Ordered Profola oral tablet 1 tablet, By Mouth, Daily, # 30 tablet, 11 Refills, Maintenance, 05/19/23 10:41:00 EDT, [facility], Partial fill upon patient request if [...] tablet, 11 Refills, Maintenance, 10/26/23 8:49:00 EST, [facility], 162.56, cm, 10/03/23 9:00:00 EST, Height Start Date: 10/26/23 Status: Ordered SUDOGEST 30 MG TABLETS SUDOGEST 30 MG TABLETS, See Instructions, # 30 each, Refills 11, Tot. Refills 11, Maintenance, TAKE30 MG Q6H PRN PER DR CRANE FAX [phone], 02/01/19 9:46:36 EDT, Compound Start Date: 02/01/19 Status: Ordered Thera oral tablet 1 tablet, By Mouth, Daily in AM, VITAMIN., # 30 tablet, 5 Refills, Maintenance, 10/25/23 10:03:00 EST, [facility], 30, TAKE 1 TABLET BY MOUTH [...] mL, 1 Refills, Maintenance, 12/01/20 8:15:00 EST, [place], [facility], 1 sprays Topically 2 times a day, 162.56, cm, 02/24/20 9:30:00 EDT, Height Start Date: 12/01/20 Status: Ordered KAILYNIN KUSHAL FATIMA, See Instructions, # 420 mL, Refills 1, Tot. Refills 1, Maintenance, 10 ML PO Q4H PRN FORCOUGH AT BEDTIME PER DR CRANE FAX [phone], 05/22/20 8:48:00 EDT, [facility], 162.56, cm, 02/24/20 [...] Confirmed Active Vitamin D deficiency Confirmed Active 79233; repeat 2020 2colo 2005 nl, repeat 2015 3Colonoscopy 2016 positive polyp, repeat 2020. 4colo 2015 Social History Social History Type Response Smoking Status Never smoker entered on: 02/01/16 Sex Patient Care team information Care Team Personnel Name: Rosa Maria HUSTON, Schuyler Pope Position: [facility] Physician - Primary Care Member Role: PCP Address: Address: [address] [place] [address]- Care Team Related Persons Name: ELLE ALMEIDA Address: home [address] [place] [id number] Name: ZAK SHELL
--- OUTSIDE RECORDS SUMMARY | 2024-04-02 09:44 | XMS_ITS | Continuity of Care Document ---
Author Organization [facility] Salvatore Todd lt Address [address] [place] [address]- Care Team Providers Care Hydrography Teacher Name Role Phone Schuyler Crane MD Primary Care Physician [phone] [facility]counter [facility] Date[facility]s): 10/07/20 - 11/06/20 [facility] Adult [address] [place] [address]- Allergies, Adverse Reactions, Alerts Substance Reaction Severity [...] 5 Refills, Soft Stop, 04/03/20 16:18:00 EDT, [facility], 162.56, cm, 02/24/20 9:30:00 EDT, Height Start Date: 04/03/20 Status: Ordered amLODIPine 10 mg oral tablet 10 mg, 1, tablet, By Mouth, Daily, # 90 tablet, Refills 1, Tot. Refills 1, Soft Stop, 10/08/20 8:13:00 EST, Route to Pharmacy Electronically, [facility], 162.56, cm, 02/24/20 9:30:00 EDT, Height Start Date: 10/08/20 Status: Ordered ANTACID 500 MG CHEWABLE TAB ANTACID 500 MG CHEWABLE TAB, See Instructions, # 90 each, Refills 3, Tot. Refills 3, Maintenance, TAKE 1 TABLET PO TID FOR OSTEOPOROSIS. MAY CRUSH TABLET PER DR ROSA MARIA CRUZ [phone], 07/20/18 12:11:49EDT, Compound Start Date: 07/20/18 Status: Ordered Bisco-Lax 10 mg rectal suppository See Instructions, INSERT 1 SUPP (10MG) INTO RECTUM NEEDED IF MILK OF MAGNESIA INEFFECTIVE AFTER 8 HRS/BISAC- EVAC EQUIVALENT/ IF SUPPOSITORY INEFFECTIVE AF, # 7 supp, 11 Refills, Acute, [facility], 162.56, cm, 02/24/20 9:30:00 EDT, Height Start Date: 03/30/20 Status: Ordered Blood Pressure Monitor See Instructions, 1, 0, 0, 06/11/07 11:11:37, PRN, HTN, ADS OPPTHS, [facility] [id number] [place] [id number] Start Date: 06/11/07 Status: Ordered calcium carbonate 500 mg (200 mg elemental calcium) oral tablet, chewable 500 mg, 1, tablet, By Mouth, 3 times a day, PER DR CRANE, # 90 tablet, Refills 11, Tot. Refills 11, Maintenance, 12/09/19 14:35:00 EDT, Route to Pharmacy Electronically, [facility], 162.56, cm, 02/12/19 10:36:00 EDT, Height [...] Gm, 11 Refills, Maintenance, 08/07/20 11:11:00 EST, [facility], 30, USE 1/4 INCH OF GEL TO BRUSH TEETH DAILY IN THE EVENING / BRUSH T... Start Date: 08/07/20 Status: Ordered docusate sodium 100 mg oral capsule 1 capsule, By Mouth, 2 times a day, # 60 capsule, 5 Refills, Maintenance, 07/30/20 15:26:00 EST, [facility], 162.56, cm, 02/24/20 9:30:00 EDT, Height Start Date: 07/30/20 Status: Ordered EARWAX TREATMENT DROPS 6.5% EARWAX TREATMENT DROPS 6.5%, See Instructions, # 1 each, Refills 11, Tot. Refills 11, Maintenance, USE DIRECTED FAX [phone], 10/01/19 11:14:00 EST, [facility];, Compound Start Date: 10/01/19 Status: Ordered Milk of Magnesia 8% oral suspension See Instructions, TAKE 2 TABLESPOONFULS (30 ML) BY MOUTH AT BEDTIME NEEDED FOR CONSTIPATION ON DAY 3 OF NO BM / SEE BISCOLAX SUPP ORDER 30ML=2,400MG, # 300 mL, 5 Refills, Acute, [facility], 162.56, cm, 02/24/20 9:30:00 EDT, Height Start Date: 10/30/20 Status: Ordered MILLITRIUM TABLET See Instructions, 30, 11, 11, 06/20/08 13:07:29, TAKE 1 TABLET BY MOUTH DAILY (VITAMIN), [facility] [address] [place] [address], Constant Indicator, MILLITRIUM TABLET Start Date: 06/20/08 [...] bid prn nasal dryness PER DAWIT STOREY BURGLAR [employer] INSTALLER-C FAX [phone], 11/02/18 14:15:30 EST, Compound Start Date: 11/02/18 Status: Ordered Ocuflox 0.3% solution 2 drops, Eyes, Both, 4 times a day, # 10 mL, 0 Refills, Maintenance, 01/10/17 14:21:09, Ophth Solution, 2 drops Eyes, Both 4 times a day Start Date: 01/10/17 Status: Ordered Polysporin 500 u-37547 u/gm ointment See Instructions, APPLY A THIN LAYER TOPICALLY TWICE DAILY NEEDED TO RED, IRRITATED SKIN X 7 DAYS / SEE ANCILLARY ORDERS (BACITRACIN-POLYMYXIN OINTMENT), # 28.3 Gm, 5 Refills, Acute, [facility], 7, APPLY A THIN LAYER TOPICALLY TWICE DAILY N... Start Date: 03/30/20 Status: Ordered Polysporin 500 u-52848 u/gm ointment See Instructions, APPLY A THIN [...] MG Q6H PRN PER DR CRANE FAX [phone], 02/01/19 9:46:36 EDT, Compound Start Date: 02/01/19 Status: Ordered Suphedrin 30 mg oral tablet See Instructions, TAKE 1 TAB (30 MG) BY MOUTH EVERY 6 HRS NEEDED FOR NASAL CONGESTION/ SEE ANCILLARY ORDERS (SUDOGEST EQUIVALENT), # 30 tablet, 11 Refills, Acute, [facility], 162.56, cm, 02/24/20 9:30:00 EDT, Height Start Date: 05/22/20 Status: Ordered THERA CAPLETS THERA CAPLETS, See Instructions, # 30 each, Refills 5, Tot. Refills 5, Maintenance, TAKE ONE CAPLETBY MOUTH QD PER DR ROSA MARIA HUGHESX [phone], 10/08/20 11:48:00 EST, [facility], 162.56, cm, 02/24/20 9:30:00 EDT, Height Start Date: 10/08/20 Status: Ordered Tinactin 1% spray 1 sprays, Topically, 2 times a day, # 120 mL, 1 Refills, Maintenance, 11/01/19 10:28:00 EST, [place],[facility], 1 sprays Topically 2 times a day, 162.56, cm, 02/12/19 10:36:00 EDT, Height Start Date: 11/01/19 Status: Ordered TUSSIN KUSHAL [place] KUSHAL, See Instructions, # 420 mL, Refills 1, Tot. Refills 1, Maintenance, 10 ML PO Q4H PRN FORCOUGH AT BEDTIME PER DR CRANE FAX [phone], 05/22/20 8:48:00 EDT, [facility], 162.56, cm, 02/24/20 9:30:00 EDT, Height Start Date: 05/22/20 Status: Ordered Tylenol 325 mg oral tablet 650 mg, 2, tablet, By Mouth, Every 4 hours, PER DR CRANE, # 168 tablet, Refills 5, Tot. Refills 5, Maintenance, 10/04/19 10:27:00 EST, Route to Pharmacy Electronically, [facility], 162.56, cm, 02/12/19 10:36:00 EDT, Height [...] Active Underweight(Confirmed) Active Vitamin D deficiency(Confirmed) Active 58802; repeat 2020 2colo 2006 nl, repeat 2015 3Colonoscopy 2016 positive polyp, repeat 2020. 4colo 2015 Social History Social History Type Response Smoking Status Never smoker entered on: 02/01/16 Sex
--- OUTSIDE RECORDS SUMMARY | 2024-04-02 09:44 | XMS_ITS | Continuity of Care Document ---
Author Organization [facility] [place] Todd lt Address [address] [place] [address]- Care Team Providers Care Environmental Engineer Name Role Phone Schuyler Crane MD Primary Care Physician [facility] Date[facility]): 10[facility]/20 - 11/29/20 [facility] Adult [address] [place] [address]- Allergies, Adverse Reactions, Alerts Substance Reaction Severity [...] 5 Refills, Soft Stop, 04/03/20 16:18:00 EDT, [facility], 162.56, cm, 02/24/20 9:30:00 EDT, Height Start Date: 04/03/20 Status: Ordered amLODIPine 10 mg oral tablet 10 mg, 1, tablet, By Mouth, Daily, # 90 tablet, Refills 1, Tot. Refills 1, Soft Stop, 10/08/20 8:13:00 EST, Route to Pharmacy Electronically, [facility], 162.56, cm, 02/24/20 9:30:00 EDT, Height Start Date: 10/08/20 Status: Ordered ANTACID 500 MG CHEWABLE TAB ANTACID 500 MG CHEWABLE TAB, See Instructions, # 90 each, Refills 3, Tot. Refills 3, Maintenance, TAKE 1 TABLET PO TID FOR OSTEOPOROSIS. MAY CRUSH TABLET PER DR CRANE FX [phone], 07/20/18 12:11:49EDT, Compound Start Date: 07/20/18 Status: Ordered Bisco-Lax 10 mg rectal suppository See Instructions, INSERT 1 SUPP (10MG) INTO RECTUM NEEDED IF MILK OF MAGNESIA INEFFECTIVE AFTER 8 HRS/BISAC- EVAC EQUIVALENT/ IF SUPPOSITORY INEFFECTIVE AF, # 7 supp, 11 Refills, Acute, [facility], 162.56, cm, 02/24/20 9:30:00 EDT, Height Start Date: 03/30/20 Status: Ordered Blood Pressure Monitor See Instructions, 1, 0, 0, 06/11/07 11:11:37, PRN, HTN, ADS OPPTHS, [facility] [id number] [place] [address] Start Date: 06/11/07 Status: Ordered calcium carbonate 500 mg (200 mg elemental calcium) oral tablet, chewable 500 mg, 1, tablet, By Mouth, 3 times a day, PER DR CRANE, # 90 tablet, Refills 3, Tot. Refills 3, Maintenance, 12/03/20 14:35:00 EST, Route to Pharmacy Electronically, [facility], 162.56, cm, 02/24/20 9:30:00 EDT, Height Start Date: 12/03/20 Stop Date: 04/02/21 Status: Ordered calcium carbonate 500 mg (200 mg elemental calcium) oral tablet, chewable 500 mg, 1, tablet, By Mouth, 3 times a day, for 30 days, PER DR CRANE, # 90 tablet, Refills 11, Tot. Refills 11, Hard Stop 12/03/20 14:35:00 EST, 12/09/19 14:35:00 EDT, Route to Pharmacy Electronically, [facility], 162.56, cm, 02/12/19 10:36:00 EDT... Start Date: 12/09/19 Stop Date: 12/03/20 Status: [...] Gm, 11 Refills, Maintenance, 08/07/20 11:11:00 EST, [facility], 30, USE 1/4 INCH OF GEL TO BRUSH TEETH DAILY IN THE EVENING / BRUSH T... Start Date: 08/07/20 Status: Ordered docusate sodium 100 mg oral capsule 1 capsule, By Mouth, 2 times a day, # 60 capsule, 5 Refills, Maintenance, 07/30/20 15:26:00 EST, [facility], 162.56, cm, 02/24/20 9:30:00 EDT, Height Start Date: 07/30/20 Status: Ordered EARWAX TREATMENT DROPS 6.5% EARWAX TREATMENT DROPS 6.5%, See Instructions, # 1 each, Refills 11, Tot. Refills 11, Maintenance, USE DIRECTED FAX [phone], 10/01/19 11:14:00 EST, [facility];, Compound Start Date: 10/01/19 Status: Ordered Milk of Magnesia 8% oral suspension See Instructions, TAKE 2 TABLESPOONFULS (30 ML) BY MOUTH AT BEDTIME NEEDED FOR CONSTIPATION ON DAY 3 OF NO BM / SEE BISCOLAX SUPP ORDER 30ML=2,400MG, # 300 mL, 5 Refills, Acute, [facility], 162.56, cm, 02/24/20 9:30:00 EDT, Height Start Date: 10/30/20 Status: Ordered MILLITRIUM TABLET See Instructions, 30, 11, 11, 06/20/08 13:07:29, TAKE 1 TABLET BY MOUTH DAILY (VITAMIN), [facility] [address] [place] [address], Constant Indicator, MILLITRIUM TABLET Start Date: 06/20/08 [...] bid prn nasal dryness PER [employer] FAX [phone], 11/02/18 14:15:30 EST, Compound Start Date: 11/02/18 Status: Ordered Ocuflox 0.3% solution 2 drops, Eyes, Both, 4 times a day, # 10 mL, 0 Refills, Maintenance, 01/10/17 14:21:09, Ophth Solution, 2 drops Eyes, Both 4 times a day Start Date: 01/10/17 Status: Ordered Polysporin 500 u-61985 u/gm ointment See Instructions, APPLY A THIN LAYER TOPICALLY TWICE DAILY NEEDED TO RED, IRRITATED SKIN X 7 DAYS / SEE ANCILLARY ORDERS (BACITRACIN-POLYMYXIN OINTMENT), # 28.3 Gm, 5 Refills, Acute, [facility], 7, APPLY A THIN LAYER TOPICALLY TWICE DAILY N... Start Date: 03/30/20 Status: Ordered Polysporin 500 u-72876 u/gm ointment See Instructions, APPLY A THIN LAYER TOPICALLY TWICE DAILY NEEDED TO RED, IRRITATED SKIN X 7 DAYS / SEE ANCILLARY ORDERS (BACITRACIN-POLYMYXIN OINTMENT), # 28.3 Gm, 5 Refills, Acute, [facility], 7, APPLY A THIN LAYER TOPICALLY TWICE DAILY N... Start Date: 03/30/20 Status: Ordered Pravachol 40 mg oral tablet 1 tablet = 40 mg, By Mouth, Daily, # 90 tablet, 1 Refills, Maintenance, 09/08/20 10:55:00 EST, [facility], 162.56, cm, 02/24/20 9:30:00 EDT, Height [...] MG Q6H PRN PER DR CRANE FAX [phone], 02/01/19 9:46:36 EDT, Compound Start Date: 02/01/19 Status: Ordered Suphedrin 30 mg oral tablet See Instructions, TAKE 1 TAB (30 MG) BY MOUTH EVERY 6 HRS NEEDED FOR NASAL CONGESTION/ SEE ANCILLARY ORDERS (SUDOGEST EQUIVALENT), # 30 tablet, 11 Refills, Acute, [facility], 162.56, cm, 02/24/20 9:30:00 EDT, Height Start Date: 05/22/20 Status: Ordered THERA CAPLETS THERA CAPLETS, See Instructions, # 30 each, Refills 5, Tot. Refills 5, Maintenance, TAKE ONE CAPLETBY MOUTH QD PER DR CRANE FAX [phone], 10/08/20 11:48:00 EST, [facility], 162.56, cm, 02/24/20 9:30:00 EDT, Height Start Date: 10/08/20 Status: Ordered Tinactin 1% spray 1 sprays, Topically, 2 times a day, # 120 mL, 1 Refills, Maintenance, 11/01/19 10:28:00 EST, [place],[facility], 1 sprays Topically 2 times a day, 162.56, cm, 02/12/19 10:36:00 EDT, Height Start Date: 11/01/19 Status: Ordered TUSSIN DM TUSSIN DM, See Instructions, # 420 mL, Refills 1, Tot. Refills 1, Maintenance, 10 ML PO Q4H PRN FORCOUGH AT BEDTIME PER DR CRANE FAX [phone], 05/22/20 8:48:00 EDT, Compound, 162.56, cm, 02/24/20 9:30:00 EDT, Height Start Date: 05/22/20 Status: Ordered Tylenol 325 mg oral tablet 650 mg, 2, tablet, By Mouth, Every 4 hours, PER DR CRANE, # 168 tablet, Refills 5, Tot. Refills 5, Maintenance, 10/04/19 10:27:00 EST, Route to Pharmacy Electronically, [facility], 162.56, cm, 02/12/19 10:36:00 EDT, Height [...] Active Underweight(Confirmed) Active Vitamin D deficiency(Confirmed) Active 10390; repeat 2020 2colo 2006 nl, repeat 2015 3Colonoscopy 2016 positive polyp, repeat 2020. 4colo 2015 Social History Social History Type Response Smoking Status Never smoker entered on: 02/01/16 Sex
--- OUTSIDE RECORDS SUMMARY | 2024-04-02 09:44 | XMS_ITS | Continuity of Care Document ---
Author Organization [facility] Mike Montes Todd lt Address [address] [place] [address]- Care Team Providers Care Order Packer Or Packager Name Role Phone Schuyler Crane MD Primary Care Physician [facility]): 10[facility]23 - 11/04/23 [facility] [address] [place] [address]- Allergies, Adverse Reactions, Alerts Substance Reaction Severity [...] 08/25/04 G cristy 1Result Comment: Td - [facility]# [id number] 2Result Comment: PCV23 - [facility]# [id number] 3Result Comment: [facility]# [id number] 4Result Comment: [10/28/2016] pharmacy 5Admin Note: given [...] 10/14/22 8:03:00 EST, Route to Pharmacy Electronically, [facility], 162.56, cm, 07/04/22 8:33:00 EDT, Height Start Date: 10/14/22 Status: Ordered All Day Allergy 10 mg oral tablet See Instructions, TAKE 1 TABLET (10 MG) BY MOUTH DAILY IN THE AM FOR SEASONAL ALLERGIES FROM DECEMBER THROUGH JUNE (START 12/24 / END 07/25) SEE ANCILLARY ORDERS, # 30 tablet, 2 Refills, Maintenance, 04/13/23 14:33:00 EDT, [facility], 162.56, cm, 0... Start Date: 04/13/23 Status: Ordered amLODIPine 10 mg oral tablet 1 tablet, By Mouth, Daily in AM, FOR HYPERTENSION., # 30 tablet, 5 Refills, Maintenance, 10/25/23 0:22:00 EST, [facility], 162.56, cm, 10/03/23 9:00:00 EST, Height Start Date: 10/25/23 Status: Ordered ANTACID 500 MG CHEWABLE TAB ANTACID 500 MG CHEWABLE TAB, See Instructions, # 90 each, Refills 3, Tot. Refills 3, Maintenance, TAKE 1 TABLET PO TID FOR OSTEOPOROSIS. MAY CRUSH TABLET PER DR ROSA MARIA CRUZ [phone], 07/20/18 12:11:49EDT, Compound Start Date: 07/20/18 Status: Ordered benzonatate 100 mg oral capsule 1 capsule, By Mouth, 3 times a day, PRN NEEDED FOR COUGH / IF NO IMPROVEMENT IN 3 DAYS NOTIFY MD/ IC, JAGRUTI, # 21 capsule, 0 Refills, Maintenance, 10/05/23 12:01:00 EST, [facility], 162.56, cm, 10/03/23 9:00:00 EST, Height Start Date: 10/05/23 Status: Ordered bisacodyl 10 mg rectal suppository See Instructions, INSERT 1 SUPP (10MG) INTO RECTUM NEEDED IF MILK OF MAGNESIA INEFFECTIVE AFTER 8 HRS/BISAC- EVAC EQUIVALENT/ IF SUPPOSITORY INEFFECTIVE AFTER 4 HRS CALL MD, # 7 supp, 11 Refills, Acute, [facility], 162.56, cm, 02/25/21 9:29:00... Start Date: 04/15/21 Status: Ordered Blood Pressure Monitor See Instructions, 1, 0, 0, 06/11/07 11:11:37, PRN, HTN, ADS OPPTHS, [facility] [place] [address] Start Date: 06/11/07 Status: Ordered calcium carbonate 500 mg (200 mg elemental calcium) oral tablet, chewable 1, tablet, By Mouth, 3 times a day, CRUSH. IC: CALCIUM CARBONATE, # 90 tablet, Refills 5, Maintenance, 10/02/23 8:50:00 EST, Route to Pharmacy Electronically, [facility], 162.56, cm, 09/19/23 10:28:00 EST, Height Start Date: 10/02/23 Status: Ordered carbamide peroxide 6.5% otic solution See Instructions, INSTILL 4 DROPS INTO EACH EAR TWICE DAILY FOR 5 DAYS EACH MONTH / IC: CARBAMIDE PEROXIDE (EAR DROPS 6.5%), # 15 mL, 11 Refills, Maintenance, 09/01/23 9:17:00 EST, [facility], 30, INSTILL 4 DROPS INTO EACH [...] capsule, 5 Refills, Maintenance, 06/06/23 14:01:00 EDT, [facility], 162.56, cm, 05/15/23 9:41:00 EDT, Height Start Date: 06/06/23 Status: Ordered EARWAX TREATMENT DROPS 6.5% EARWAX TREATMENT DROPS 6.5%, See Instructions, # 1 each, Refills 11, Tot. Refills 11, Maintenance, USE DIRECTED FAX [phone], 12/02/20 14:40:00 EST, [facility];, Compound, 162.56, cm, 02/24/20 9:30:00 EDT, Height Start Date: 12/02/20 Status: Ordered fluoride 1.1% topical gel See Instructions, USE 1/4 INCH OF GEL TO BRUSH TEETH DAILY IN THE EVENING / BRUSH THOROUGHLY ALONG GUMLINE IC: DENTAGEL, # 56 Gm, 11 Refills, Maintenance, 09/21/23 16:44:00 EST, [facility], 30, USE 1/4 INCH OF GEL TO BRUSH TEETH DAILY IN THE EVEN... Start Date: 09/21/23 Status: Ordered Carolyn-jag 8.6 mg oral tablet 1 tablet, By Mouth, Daily in PM, FOR CONSTIPATION / SEE MILK OF MAG ORDERS / IC: SENNA 8.6 MG, # 15tablet, 6 Refills, Maintenance, 10/14/22 8:03:00 EST, [facility], 162.56, cm, 07/04/22 8:33:00EDT, Height Start Date: 10/14/22 Status: Ordered Hospital Bed See Instructions, # 1 each, Refills 0, Tot. Refills 0, Maintenance, [facility] DX: Left hip fracture, seizure dis, impulse control disorder, atypical autism. Duration ongoing NPI#[id number] Height: 5'6 Weight: 137lbs, 03/22/23 13:55:... Start Date: 03/22/23 Status: Ordered Milk of Magnesia 8% oral suspension See Instructions, TAKE 2 TABLESPOONFULS (30 ML) BY MOUTH AT BEDTIME NEEDED FOR CONSTIPATION ON DAY 3 OF NO BM / SEE BISCOLAX SUPP ORDER 30ML=2,400MG, # 300 mL, 5 Refills, Acute, [facility], 162.56, cm, 02/24/20 9:30:00 EDT, Height Start Date: 10/30/20 Status: Ordered MILLITRIUM TABLET See Instructions, 30, 11, 11, 06/20/08 13:07:29, TAKE 1 TABLET BY MOUTH DAILY (VITAMIN), [facility] [address] [place] [id number], Constant Indicator, MILLITRIUM TABLET Start Date: 06/20/08 [...] tablet, 0 Refills, Maintenance, 10/03/23 8:50:00 EST, [facility], Partial fill upon patient request if the prescription... Start Date: 10/03/23 Status: Ordered Polysporin 500 u-71857 u/gm ointment See Instructions, APPLY A THIN LAYER TOPICALLY TWICE DAILY NEEDED TO RED, IRRITATED SKIN X 7 DAYS / SEE ANCILLARY ORDERS (BACITRACIN-POLYMYXIN OINTMENT), # 28.3 Gm, 5 Refills, Maintenance, 04/18/23 8:59:00 EDT, [facility], 7, APPLY A THIN LAYE... Start Date: 04/18/23 Status: Ordered pravastatin 40 mg oral tablet 1 tablet, By Mouth, Daily, IN PM FOR HYPERLIPIDEMIA., # 30 tablet, 5 Refills, Maintenance, 248:50:00 EST, [facility], 162.56, cm, 09/19/23 10:28:00 EST, Height Start Date: 10/02/23 Status: Ordered Profola oral tablet 1 tablet, By Mouth, Daily, # 30 tablet, 11 Refills, Maintenance, 05/19/23 10:41:00 EDT, [facility], Partial fill upon patient request if [...] tablet, 11 Refills, Maintenance, 10/26/23 8:49:00 EST, [facility], 162.56, cm, 10/03/23 9:00:00 EST, Height Start Date: 10/26/23 Status: Ordered SUDOGEST 30 MG TABLETS SUDOGEST 30 MG TABLETS, See Instructions, # 30 each, Refills 11, Tot. Refills 11, Maintenance, TAKE30 MG Q6H PRN PER DR CRANE FAX [phone], 02/01/19 9:46:36 EDT, Compound Start Date: 02/01/19 [...] mL, 1 Refills, Maintenance, 12/01/20 8:15:00 EST, [place], [facility], 1 sprays Topically 2 times a day, 162.56, cm, 02/24/20 9:30:00 EDT, Height Start Date: 12/01/20 Status: Ordered TUSSIN DM KAILYNIN KUSHAL, See Instructions, # 420 mL, Refills 1, Tot. Refills 1, Maintenance, 10 ML PO Q4H PRN FORCOUGH AT BEDTIME PER DR CRANE FAX [phone], 05/22/20 8:48:00 EDT, [facility], 162.56, cm, 02/24/20 [...] Confirmed Active Vitamin D deficiency Confirmed Active 73534; repeat 2020 2colo 2006 nl, repeat 2015 3Colonoscopy 2016 positive polyp, repeat 2020. 4colo 2015 Social History Social History Type Response Smoking Status Never smoker entered on: 02/01/16 Sex Patient Care team information Care Team Personnel Name: Rosa Maria HUSTON, Schuyler Pope Position: [facility] Physician - Primary Care Member Role: PCP Address: Address: [address] [facility] [place] [address]- Care Team Related Persons Name: ELLE ALMEIDA Address: home [address] [place] [address] [place] [address] Name: ZAK HSELL
--- OUTSIDE RECORDS SUMMARY | 2024-04-02 09:44 | XMS_ITS | Continuity of Care Document ---
Author Organization [facility] [place] Todd lt Address [address] [place] [address]- Care Team Providers Care Dredge Runner Name Role Phone Schuyler Crane MD Primary Care Physician [phone] [facility] - 02/17/24 [facility] [address] [place] [address]- Allergies, Adverse Reactions, Alerts Substance Reaction Severity [...] 08/25/04 Vishal muniz 1Result Comment: Td - [facility]# [id number] 2Result Comment: PCV23 - [facility]# [id number] 3Result Comment: [facility]# [id number] 4Result Comment: [10/28/2016] pharmacy 5Admin Note: given [...] 10/14/22 8:03:00 EST, Route to Pharmacy Electronically, [facility], 162.56, cm, 07/04/22 8:33:00 EDT, Height Start Date: 10/14/22 Status: Ordered acetaminophen 325 mg oral tablet 2, tablet, By Mouth, 2 times a day, PRN, # 20 tablet, Refills 0, Tot. Refills 0, Maintenance, NEEDED, 12/12/23 11:09:00 EDT, Route to Pharmacy Electronically, [facility], 162.56, cm, 12/11/2409:47:00 EDT, Height Start Date: 12/12/23 Stop Date: 12/17/23 Status: Ordered All Day Allergy 10 mg oral tablet 1 tablet, By Mouth, Daily in AM, FOR SEASONAL ALLERGIES FROM DECEMBER THROUGH JUNE (START 12/24 / ) SEE ANCILLARY ORDERS., # 30 tablet, 11 Refills, Maintenance, 12/21/23 7:45:00 EDT, [facility], 162.56, cm, 12/12/23 10:47:00 EDT, Height Start Date: 12/21/23 Status: Ordered amLODIPine 10 mg oral tablet 1 tablet, By Mouth, Daily in AM, FOR HYPERTENSION., # 30 tablet, 5 Refills, Maintenance, 10/25/23 0:22:00 EST, [facility], 162.56, cm, 10/03/23 9:00:00 EST, Height Start Date: 10/25/23 Status: Ordered ANTACID 500 MG CHEWABLE TAB ANTACID 500 MG CHEWABLE TAB, See Instructions, # 90 each, Refills 3, Tot. Refills 3, Maintenance, TAKE 1 TABLET PO TID FOR OSTEOPOROSIS. MAY CRUSH TABLET PER DR ROSA MARIA CRUZ [phone], 07/20/18 12:11:49EDT, Compound Start Date: 07/20/18 Status: Ordered benzonatate 100 mg oral capsule 1 capsule, By Mouth, 3 times a day, PRN NEEDED FOR COUGH / IF NO IMPROVEMENT IN 3 DAYS NOTIFY MD/ IC, JAGRUTI, # 21 capsule, 0 Refills, Maintenance, 10/05/23 12:01:00 EST, [facility], 162.56, cm, 10/03/23 9:00:00 EST, Height Start Date: 10/05/23 Status: Ordered bisacodyl 10 mg rectal suppository See Instructions, INSERT 1 SUPP (10MG) INTO RECTUM NEEDED IF MILK OF MAGNESIA INEFFECTIVE AFTER 8 HRS/BISAC- EVAC EQUIVALENT/ IF SUPPOSITORY INEFFECTIVE AFTER 4 HRS CALL MD, # 7 supp, 11 Refills, Acute, [facility], 162.56, cm, 02/25/21 9:29:00... Start Date: 04/15/21 Status: Ordered Blood Pressure Monitor See Instructions, 1, 0, 0, 06/11/07 11:11:37, PRN, HTN, ADS OPPTHS, [facility] [id number] [place] [address] Start Date: 06/11/07 Status: Ordered calcium carbonate 500 mg (200 mg elemental calcium) oral tablet, chewable 1, tablet, By Mouth, 3 times a day, CRUSH. IC: CALCIUM CARBONATE, # 90 tablet, Refills 5, Maintenance, 10/02/23 8:50:00 EST, Route to Pharmacy Electronically, [facility], 162.56, cm, 09/19/23 10:28:00 EST, Height Start Date: 10/02/23 Status: Ordered carbamide peroxide 6.5% otic solution See Instructions, INSTILL 4 DROPS INTO EACH EAR TWICE DAILY FOR 5 DAYS EACH MONTH / IC: CARBAMIDE PEROXIDE (EAR DROPS 6.5%), # 15 mL, 11 Refills, Maintenance, 09/01/23 9:17:00 EST, [facility], 30, INSTILL 4 DROPS INTO EACH [...] capsule, 5 Refills, Maintenance, 11/23/23 20:00:00 EST, [facility], 162.56, cm, 10/03/23 9:00:00 EST, Height Start Date: 11/23/23 Status: Ordered EARWAX TREATMENT DROPS 6.5% EARWAX TREATMENT DROPS 6.5%, See Instructions, # 1 each, Refills 11, Tot. Refills 11, Maintenance, USE DIRECTED FAX [phone], 12/02/20 14:40:00 EST, [facility];, [facility], 162.56, cm, 02/24/20 9:30:00 EDT, Height Start Date: 12/02/20 Status: Ordered fluoride 1.1% topical gel See Instructions, USE 1/4 INCH OF GEL TO BRUSH TEETH DAILY IN THE EVENING / BRUSH THOROUGHLY ALONG GUMLINE IC: DENTAGEL, # 56 Gm, 11 Refills, Maintenance, 09/21/23 16:44:00 EST, [facility], 30, USE 1/4 INCH OF GEL TO BRUSH TEETH DAILY IN THE EVEN... Start Date: 09/21/23 Status: Ordered Carolyn-jag 8.6 mg oral tablet 1 tablet, By Mouth, Daily in PM, FOR CONSTIPATION / SEE MILK OF MAG ORDERS / IC: SENNA 8.6 MG, # 15tablet, 6 Refills, Maintenance, 10/14/22 8:03:00 EST, [facility], 162.56, cm, 07/04/22 8:33:00EDT, Height Start Date: 10/14/22 Status: Ordered Hospital Bed See Instructions, # 1 each, Refills 0, Tot. Refills 0, Maintenance, [facility] DX: Left hip fracture, seizure dis, impulse control disorder, atypical autism. Duration ongoing NPI#[id number] Height: 5'6 Weight: 137lbs, 03/22/23 13:55:... Start Date: 03/22/23 Status: Ordered ibuprofen 600 mg oral tablet 600 mg, 1, tablet, By Mouth, Every 8 hours, PRN for pain, # 30 tablet, Refills 0, Tot. Refills 0, Maintenance, 02/08/24 12:44:00 EDT, Route to Pharmacy Electronically, [facility], Partial fill upon patient request if the prescription is for a adeline... Start Date: 02/08/24 Status: Ordered Milk of Magnesia 8% oral suspension See Instructions, TAKE 2 TABLESPOONFULS (30 ML) BY MOUTH AT BEDTIME NEEDED FOR CONSTIPATION ON DAY 3 OF NO BM / SEE BISCOLAX SUPP ORDER 30ML=2,400MG, # 300 mL, 5 Refills, Acute, [facility], 162.56, cm, 02/24/20 9:30:00 EDT, Height Start Date: 10/30/20 Status: Ordered MILLITRIUM TABLET See Instructions, 30, 11, 11, 06/20/08 13:07:29, TAKE 1 TABLET BY MOUTH DAILY (VITAMIN), [facility] [address] [place] [id number], Constant Indicator, MILLITRIUM TABLET Start Date: 06/20/08 [...] tablet, 0 Refills, Maintenance, 10/03/23 8:50:00 EST, [facility], Partial fill upon patient request if the prescription... Start Date: 10/03/23 Status: Ordered Polysporin 500 u-20263 u/gm ointment See Instructions, APPLY A THIN LAYER TOPICALLY TWICE DAILY NEEDED TO RED, IRRITATED SKIN X 7 DAYS / SEE ANCILLARY ORDERS (BACITRACIN-POLYMYXIN OINTMENT), # 28.3 Gm, 5 Refills, Maintenance, 04/18/23 8:59:00 EDT, [facility], 7, APPLY A THIN LAYE... Start Date: 04/18/23 Status: Ordered pravastatin 40 mg oral tablet 1 tablet, By Mouth, Daily, IN PM FOR HYPERLIPIDEMIA., # 30 tablet, 5 Refills, Maintenance, 248:50:00 EST, [facility], 162.56, cm, 09/19/23 10:28:00 EST, Height Start Date: 10/02/23 Status: Ordered Profola oral tablet 1 tablet, By Mouth, Daily, # 30 tablet, 11 Refills, Maintenance, 05/19/23 10:41:00 EDT, [facility], Partial fill upon patient request if [...] tablet, 11 Refills, Maintenance, 10/26/23 8:49:00 EST, [facility], 162.56, cm, 10/03/23 9:00:00 EST, Height Start Date: 10/26/23 Status: Ordered SUDOGEST 30 MG TABLETS SUDOGEST 30 MG TABLETS, See Instructions, # 30 each, Refills 11, Tot. Refills 11, Maintenance, TAKE30 MG Q6H PRN PER DR CRANE FAX [phone], 02/01/19 9:46:36 EDT, Compound Start Date: 02/01/19 Status: Ordered Thera oral tablet 1 tablet, By Mouth, Daily in AM, VITAMIN., # 30 tablet, 5 Refills, Maintenance, 10/25/23 10:03:00 EST, [facility], 30, TAKE 1 TABLET BY MOUTH [...] mL, 1 Refills, Maintenance, 12/01/20 8:15:00 EST, [place], [facility], 1 sprays Topically 2 times a day, 162.56, cm, 02/24/20 9:30:00 EDT, Height Start Date: 12/01/20 Status: Ordered KAILYNIN KUSHAL FATIMA, See Instructions, # 420 mL, Refills 1, Tot. Refills 1, Maintenance, 10 ML PO Q4H PRN FORCOUGH AT BEDTIME PER DR CRANE FAX [phone], 05/22/20 8:48:00 EDT, Compound, 162.56, cm, 02/24/20 [...] Confirmed Active Vitamin D deficiency Confirmed Active 99630; repeat 2020 2colo 2005 nl, repeat 2015 3Colonoscopy 2016 positive polyp, repeat 2020. 4colo 2015 Social History Social History Type Response Smoking Status Never smoker entered on: 02/01/16 Sex Patient Care team information Care Team Personnel Name: Rosa Maria HUSTON, Schuyler Pope Position: [facility] Physician - Primary Care Member Role: PCP Address: Address: [address] [place] [address]- Care Team Related Persons Name: ELLE ALMEIDA Address: home [address] [place] [id number] Name: ZAK SHELL
--- OUTSIDE RECORDS SUMMARY | 2024-04-02 09:44 | XMS_ITS | Continuity of Care Document ---
Author Organization [facility] Salvatore Todd lt Address [address] [place] [address]- Care Team Providers Care Dispatch Associate Name Role Phone Schuyler Crane MD Primary Care Physician [phone] Encounter [facility] Date(s): 02/28/22 - 03/07/22 [facility] Adult [address] [place] [address]- Attending Physician: Schuyler Crane MD Allergies, Adverse [...] Replace Required Details, Route to Pharmacy Electronically, [facility], 162.56, cm, 02/25/21 9:29:00 EDT, He... Start Date: 08/31/21 Status: Ordered amLODIPine 10 mg oral tablet See Instructions, TAKE 1 TABLET (10 MG) BY MOUTH DAILY IN AM FOR HYPERTENSION, # 30 tablet, 5 Refills, [facility], 162.56, cm, 02/25/21 9:29:00 EDT, Height Start Date: 09/30/21 Status: Ordered ANTACID 500 MG CHEWABLE TAB ANTACID 500 MG CHEWABLE TAB, See Instructions, # 90 each, Refills 3, Tot. Refills 3, Maintenance, TAKE 1 TABLET PO TID FOR OSTEOPOROSIS. MAY CRUSH TABLET PER DR CRANE FX [phone], 07/20/18 12:11:49EDT, Compound Start Date: 07/20/18 Status: Ordered benzonatate 100 mg oral capsule 1 capsule, By Mouth, 3 times a day, PRN NEEDED FOR COUGH / IF NO IMPROVEMENT IN 3 DAYS NOTIFY / IC, JAGRUTI, # 21 capsule, 0 Refills, [facility], 162.56, cm, 12/06/21 13:34:00 EDT, Height Start Date: 02/25/22 Status: Ordered bisacodyl 10 mg rectal suppository See Instructions, INSERT 1 SUPP (10MG) INTO RECTUM NEEDED IF MILK OF MAGNESIA INEFFECTIVE AFTER 8 HRS/BISAC- EVAC EQUIVALENT/ IF SUPPOSITORY INEFFECTIVE AFTER 4 HRS CALL , # 7 supp, 11 Refills, Acute, [facility], 162.56, cm, 02/25/21 9:29:00... Start Date: 04/15/21 Status: Ordered Blood Pressure Monitor See Instructions, 1, 0, 0, 06/11/07 11:11:37, PRN, HTN, ADS OPPTHS, [facility] [id number] [place] [id number] Start Date: 06/11/07 Status: Ordered calcium carbonate 500 mg (200 mg elemental calcium) oral tablet, chewable See Instructions, TAKE 1 TABLET (500 MG) BY MOUTH 3 TIMES A DAY FOR OSTEOPOROSIS MAY CRUSH TABLET IC: CALCIUM CARBONATE, # 90 tablet, Refills 5, Instructions Replace Required Details, Route to Pharmacy Electronically, [facility], 162.56, cm, 11/23... Start Date: 02/25/22 Status: Ordered cetirizine 10 mg oral tablet 1 tablet, By Mouth, Daily in AM, FOR SEASONAL ALLERGIES FROM DECEMBER THROUGH JUNE (START 12/24 / ) SEE ANCILLARY ORDERS., # 30 tablet, 5 Refills, [facility], 162.56, cm, 12/06/21 13:34:00 EDT, Height [...] 100 MG), # 60 capsule, 5 Refills, [facility], 162.56, cm, 12/06/21 13:34:00 EDT, Height Start Date: 01/13/22 Status: Ordered EARWAX TREATMENT DROPS 6.5% EARWAX TREATMENT DROPS 6.5%, See Instructions, # 1 each, Refills 11, Tot. Refills 11, Maintenance, USE DIRECTED FAX [phone], 12/02/20 14:40:00 EST, [facility];, [facility], 162.56, cm, [...] ORDER 30ML=2,400MG, # 300 mL, 5 Refills, [facility], [facility], 162.56, cm, 02/24/20 9:30:00 EDT, Height Start Date: 10/30/20 Status: Ordered MILLITRIUM TABLET See Instructions, 30, 11, 11, 06/20/08 13:07:29, TAKE 1 TABLET BY MOUTH DAILY (VITAMIN), [facility] [address] [place] [address], Constant Indicator, MILLITRIUM TABLET Start Date: 06/20/08 [...] bid prn nasal dryness PER DAWIT STOREY BID CLERK-C FAX [phone], 11/02/18 14:15:30 EST, Compound Start Date: 11/02/18 Status: Ordered Ocuflox 0.3% solution 2 drops, Eyes, Both, 4 times a day, # 10 mL, 0 Refills, Maintenance, 01/10/17 14:21:09, Ophth Solution, 2 drops Eyes, Both 4 times a day Start Date: 01/10/17 Status: Ordered Polysporin 500 u-35277 u/gm ointment See Instructions, APPLY A THIN LAYER TOPICALLY TWICE DAILY NEEDED TO RED, IRRITATED SKIN X 7 DAYS / SEE ANCILLARY ORDERS (BACITRACIN-POLYMYXIN OINTMENT), # 28.3 Gm, 5 Refills, Maintenance, 04/14/21 14:39:00 EDT, [facility], 7, APPLY A THIN LAY... Start Date: 04/14/21 Status: Ordered pravastatin 40 mg oral tablet 1 tablet, By Mouth, Daily, IN PM FOR HYPERLIPIDEMIA., # 30 tablet, 5 Refills, [facility], 162.56, cm, 12/06/21 13:34:00 EDT, Height [...] MG Q6H PRN PER DR CRANE FAX [phone], 02/01/19 9:46:36 EDT, Compound Start Date: 02/01/19 Status: Ordered Suphedrin 30 mg oral tablet See Instructions, TAKE 1 TAB (30 MG) BY MOUTH EVERY 6 HRS NEEDED FOR NASAL CONGESTION/ SEE ANCILLARY ORDERS (SUDOGEST EQUIVALENT), # 30 tablet, 11 Refills, Acute, [facility], 162.56, cm, 02/24/20 9:30:00 EDT, Height Start Date: 05/22/20 Status: Ordered THERA CAPLETS THERA CAPLETS, See Instructions, # 30 each, Refills 5, Tot. Refills 5, Maintenance, TAKE ONE CAPLETBY MOUTH QD PER DR CRANE FAX [phone], 10/08/20 11:48:00 EST, Compound, 162.56, cm, 02/24/20 9:30:00 EDT, Height Start Date: 10/08/20 Status: Ordered Thera oral tablet See Instructions, TAKE 1 TABLET BY MOUTH DAILY IN THE AM (VITAMIN), # 30 tablet, 5 Refills, [facility], 30, TAKE 1 TABLET BY MOUTH [...] mL, 1 Refills, Maintenance, 12/01/20 8:15:00 EST, [place], 1 sprays Topically 2 times a day, 162.56, cm, 02/24/20 9:30:00 EDT, Height Start Date: 12/01/20 Status: Ordered JAMAL FATIMA, See Instructions, # 420 mL, Refills 1, Tot. Refills 1, Maintenance, 10 ML PO Q4H PRN FORCOUGH AT BEDTIME PER DR CRANE FAX [phone], 05/22/20 8:48:00 EDT, Compound, 162.56, cm, 02/24/20 [...] Seizure disorder(Confirmed) Active Vitamin D deficiency(Confirmed) Active 84365; repeat 2020 2colo 2006 nl, repeat 2015 3Colonoscopy 2016 positive polyp, repeat 2020. 4colo 2016 Vital Signs Most recent to oldest [Reference Range]: 1 Height 162.56 cm (02/28/22 9:58 AM) Weight 59.3 kg (02/28/22 9:58 AM) Oxygen Saturation [94-100 %] 96 % (02/28/22 9:58 AM) Body Mass Index [18.5-24.99] 22.44 (02/28/22 9:58 AM) Blood Pressure [90-138/55-84 mm Hg] 112/ 60mm Hg (02/28/22 9:58 AM) Mode of Delivery (Oxygen) Room air (02/28/22 9:58 AM) Blood pressure sites Arm, left (02/28/22 9:58 AM) Weight Obtained Via Standing scale (02/28/22 9:58 AM) Social History Social History Type Response Smoking Status Never smoker entered on: 02/01/16 Sex
--- OUTSIDE RECORDS SUMMARY | 2024-04-02 09:44 | XMS_ITS | Continuity of Care Document ---
Author Organization [facility] Salvatore Todd lt Address [address] [place] [address]- Care Team Providers Care Elastic Attacher Zigzag Name Role Phone Schuyler Crane MD Primary Care Physician Encounter [facility] Date(s): 10/03/23 - 10/10/23 [facility] Adult [address] [place] [address]- Encounter Diagnosis COVID-19(Discharge Diagnosis) - 10/03/23 Attending Physician: Leonidas GIBSON-Janeth RENDON Allergies, Adverse Reactions, Alerts Substance Reaction Severity [...] 08/25/04 G iven 1Result Comment: Td - [facility]# [id number] 2Result Comment: PCV23 - [facility]# [id number] 3Result Comment: [facility]# [id number] 4Result Comment: [10/28/2016] pharmacy 5Admin Note: given [...] 10/14/22 8:03:00 EST, Route to Pharmacy Electronically, [facility], 162.56, cm, 07/04/22 8:33:00 EDT, Height Start Date: 10/14/22 Status: Ordered All Day Allergy 10 mg oral tablet See Instructions, TAKE 1 TABLET (10 MG) BY MOUTH DAILY IN THE AM FOR SEASONAL ALLERGIES FROM DECEMBER THROUGH JUNE (START 12/24 / END 07/25) SEE ANCILLARY ORDERS, # 30 tablet, 2 Refills, Maintenance, 04/13/23 14:33:00 EDT, [facility], 162.56, cm, 0... Start Date: 04/13/23 Status: Ordered amLODIPine 10 mg oral tablet 1 tablet, By Mouth, Daily in AM, FOR HYPERTENSION., # 30 tablet, 5 Refills, Maintenance, 04/19/23 23:11:00 EDT, [facility], 162.56, cm, 04/10/23 7:35:00 EDT, Height Start Date: 04/19/23 Status: Ordered amLODIPine 5 mg oral tablet 5 mg, 1, tablet, By Mouth, Daily, # 7 tablet, Refills 0, Tot. Refills 0, Maintenance, 10/03/23 13:38:00 EST, Route to Pharmacy Electronically, [facility], Partial fill upon patient request if the prescription is for a schedule II opioid drug., 16... Start Date: 10/03/23 Stop Date: 10/10/23 Status: Ordered ANTACID 500 MG CHEWABLE TAB ANTACID 500 MG CHEWABLE TAB, See Instructions, # 90 each, Refills 3, Tot. Refills 3, Maintenance, TAKE 1 TABLET PO TID FOR OSTEOPOROSIS. MAY CRUSH TABLET PER DR ROSA MARIA CRUZ [phone], 07/20/18 12:11:49EDT, Compound Start Date: 07/20/18 Status: Ordered benzonatate 100 mg oral capsule 1 capsule, By Mouth, 3 times a day, PRN NEEDED FOR COUGH / IF NO IMPROVEMENT IN 3 DAYS NOTIFY MD/ ICJAGRUTI, # 21 capsule, 0 Refills, Maintenance, 10/05/23 12:01:00 EST, [facility], 162.56, cm, 10/03/23 9:00:00 EST, Height Start Date: 10/05/23 Status: Ordered bisacodyl 10 mg rectal suppository See Instructions, INSERT 1 SUPP (10MG) INTO RECTUM NEEDED IF MILK OF MAGNESIA INEFFECTIVE AFTER 8 HRS/BISAC- EVAC EQUIVALENT/ IF SUPPOSITORY INEFFECTIVE AFTER 4 HRS CALL MD, # 7 supp, 11 Refills, Acute, [facility], 162.56, cm, 02/25/21 9:29:00... Start Date: 04/15/21 Status: Ordered Blood Pressure Monitor See Instructions, 1, 0, 0, 06/11/07 11:11:37, PRN, HTN, ADS OPPTHS, [facility] [id number] [place] [address] Start Date: 06/11/07 Status: Ordered calcium carbonate 500 mg (200 mg elemental calcium) oral tablet, chewable 1, tablet, By Mouth, 3 times a day, CRUSH. IC: CALCIUM CARBONATE, # 90 tablet, Refills 5, Maintenance, 10/02/23 8:50:00 EST, Route to Pharmacy Electronically, [facility], 162.56, cm, 09/19/23 10:28:00 EST, Height Start Date: 10/02/23 Status: Ordered carbamide peroxide 6.5% otic solution See Instructions, INSTILL 4 DROPS INTO EACH EAR TWICE DAILY FOR 5 DAYS EACH MONTH / IC: CARBAMIDE PEROXIDE (EAR DROPS 6.5%), # 15 mL, 11 Refills, Maintenance, 09/01/23 9:17:00 EST, [facility], 30, INSTILL 4 DROPS INTO EACH [...] capsule, 5 Refills, Maintenance, 06/06/23 14:01:00 EDT, [facility], 162.56, cm, 05/15/23 9:41:00 EDT, Height Start Date: 06/06/23 Status: Ordered EARWAX TREATMENT DROPS 6.5% EARWAX TREATMENT DROPS 6.5%, See Instructions, # 1 each, Refills 11, Tot. Refills 11, Maintenance, USE DIRECTED FAX [phone], 12/02/20 14:40:00 EST, [facility], 162.56, cm, 02/24/20 9:30:00 EDT, Height Start Date: 12/02/20 Status: Ordered fluoride 1.1% topical gel See Instructions, USE 1/4 INCH OF GEL TO BRUSH TEETH DAILY IN THE EVENING / BRUSH THOROUGHLY ALONG GUMLINE IC: DENTAGEL, # 56 Gm, 11 Refills, Maintenance, 09/21/23 16:44:00 EST, [facility], 30, USE 1/4 INCH OF GEL TO BRUSH TEETH DAILY IN THE EVEN... Start Date: 09/21/23 Status: Ordered Carolyn-jag 8.6 mg oral tablet 1 tablet, By Mouth, Daily in PM, FOR CONSTIPATION / SEE MILK OF MAG ORDERS / IC: SENNA 8.6 MG, # 15tablet, 6 Refills, Maintenance, 10/14/22 8:03:00 EST, [facility], 162.56, cm, 07/04/22 8:33:00EDT, Height Start Date: 10/14/22 Status: Ordered Hospital Bed See Instructions, # 1 each, Refills 0, Tot. Refills 0, Maintenance, [facility] Bed DX: Left hip fracture, seizure dis, impulse control disorder, atypical autism. Duration ongoing NPI#[id number] Height: 5'6 Weight: 137lbs, 03/22/23 13:55:... Start Date: 03/22/23 Status: Ordered Milk of Magnesia 8% oral suspension See Instructions, TAKE 2 TABLESPOONFULS (30 ML) BY MOUTH AT BEDTIME NEEDED FOR CONSTIPATION ON DAY 3 OF NO BM / SEE BISCOLAX SUPP ORDER 30ML=2,400MG, # 300 mL, 5 Refills, Acute, [facility], 162.56, cm, 02/24/20 9:30:00 EDT, Height Start Date: 10/30/20 Status: Ordered MILLITRIUM TABLET See Instructions, 30, 11, 11, 06/20/08 13:07:29, TAKE 1 TABLET BY MOUTH DAILY (VITAMIN), [facility] [address] [place] [address], Constant Indicator, MILLITRIUM TABLET Start Date: 06/20/08 [...] tablet, 0 Refills, Maintenance, 10/03/23 8:50:00 EST, [facility], Partial fill upon patient request if the prescription... Start Date: 10/03/23 Status: Ordered Polysporin 500 u-12407 u/gm ointment See Instructions, APPLY A THIN LAYER TOPICALLY TWICE DAILY NEEDED TO RED, IRRITATED SKIN X 7 DAYS / SEE ANCILLARY ORDERS (BACITRACIN-POLYMYXIN OINTMENT), # 28.3 Gm, 5 Refills, Maintenance, 04/18/23 8:59:00 EDT, [facility], 7, APPLY A THIN LAYE... Start Date: 04/18/23 Status: Ordered pravastatin 40 mg oral tablet 1 tablet, By Mouth, Daily, IN PM FOR HYPERLIPIDEMIA., # 30 tablet, 5 Refills, Maintenance, 248:50:00 EST, [facility], 162.56, cm, 09/19/23 10:28:00 EST, Height Start Date: 10/02/23 Status: Ordered Profola oral tablet 1 tablet, By Mouth, Daily, # 30 tablet, 11 Refills, Maintenance, 05/19/23 10:41:00 EDT, [facility], Partial fill upon patient request if [...] (SUPHEDRIN EQUIVALENT), # 30 tablet, 11 Refills, [facility], 162.56, cm, 03/24/22 10:31:00 EDT, Height Start Date: 04/22/22 Status: Ordered SUDOGEST 30 MG TABLETS SUDOGEST 30 MG TABLETS, See Instructions, # 30 each, Refills 11, Tot. Refills 11, Maintenance, TAKE30 MG Q6H PRN PER DR CRANE FAX [phone], 02/01/19 9:46:36 EDT, Compound Start Date: 02/01/19 [...] mL, 1 Refills, Maintenance, 12/01/20 8:15:00 EST, [place], [facility], 1 sprays Topically 2 times a day, 162.56, cm, 02/24/20 9:30:00 EDT, Height Start Date: 12/01/20 Status: Ordered CHAKASSIN KUSHAL FATIMA, See Instructions, # 420 mL, Refills 1, Tot. Refills 1, Maintenance, 10 ML PO Q4H PRN FORCOUGH AT BEDTIME PER DR CRANE FAX [phone], 05/22/20 8:48:00 EDT, [facility], 162.56, cm, 02/24/20 [...] Confirmed Active Vitamin D deficiency Confirmed Active 64466; repeat 2020 2colo 2005 nl, repeat 2015 3Colonoscopy 2016 positive polyp, repeat 2020. 4colo 2015 Diagnosis Diagnosis Type Effective Dates Health Status Clini génesis Service Informant COVID-19 Discharge Diagnosis 10/03/23 Vital Signs Most recent to oldest [Reference Range]: 1 Height 162.56 cm (10/03/23 8:40 AM) Social History Social History Type Response Smoking Status Never smoker entered on: 02/01/16 Sex Patient Care team information Care Team Personnel Name: Rosa Maria HUSTON, Schuyler Pope Position: [facility] Physician - Primary Care Member Role: PCP Address: Address: [address] [place] [address]- Care Team Related Persons Name: ELLE ALMEIDA Address: home [address] [place] [address] [place] [address] Name: ZAK SHELL
--- OUTSIDE RECORDS SUMMARY | 2024-04-02 09:44 | XMS_ITS | Continuity of Care Document ---
Author Organization [facility] Salvatore Todd lt Address [address] [place] [address]- Care Team Providers Care Blood Bank Assistant Name Role Phone Schuyler Crane MD Primary Care Physician [phone] Encounter [facility] Date(s): 12/11/23 - 01/10/24 [facility] Adult [address] [place] [address]- Allergies, Adverse Reactions, Alerts Substance Reaction Severity [...] [facility]# [id number] 2Result Comment: PCV23 - [facility]# [id number] 3Result Comment: [facility]# [id number] 4Result Comment: [10/28/2016] pharmacy 5Admin Note: given [...] 10/14/22 8:03:00 EST, Route to Pharmacy Electronically, [facility], 162.56, cm, 07/04/22 8:33:00 EDT, Height Start Date: 10/14/22 Status: Ordered acetaminophen 325 mg oral tablet 2, tablet, By Mouth, 2 times a day, PRN, # 20 tablet, Refills 0, Tot. Refills 0, Maintenance, NEEDED, 12/12/23 11:09:00 EDT, Route to Pharmacy Electronically, [facility], 162.56, cm, 12/11/2409:47:00 EDT, Height Start Date: 12/12/23 Stop Date: 12/17/23 Status: Ordered All Day Allergy 10 mg oral tablet 1 tablet, By Mouth, Daily in AM, FOR SEASONAL ALLERGIES FROM DECEMBER THROUGH JUNE (START 12/24 / ) SEE ANCILLARY ORDERS., # 30 tablet, 11 Refills, Maintenance, 12/21/23 7:45:00 EDT, [facility], 162.56, cm, 12/12/23 10:47:00 EDT, Height Start Date: 12/21/23 Status: Ordered amLODIPine 10 mg oral tablet 1 tablet, By Mouth, Daily in AM, FOR HYPERTENSION., # 30 tablet, 5 Refills, Maintenance, 10/25/23 0:22:00 EST, [facility], 162.56, cm, 10/03/23 9:00:00 EST, Height Start Date: 10/25/23 Status: Ordered ANTACID 500 MG CHEWABLE TAB ANTACID 500 MG CHEWABLE TAB, See Instructions, # 90 each, Refills 3, Tot. Refills 3, Maintenance, TAKE 1 TABLET PO TID FOR OSTEOPOROSIS. MAY CRUSH TABLET PER DR ROSA MARIA CRUZ [phone], 07/20/18 12:11:49EDT, Compound Start Date: 07/20/18 Status: Ordered benzonatate 100 mg oral capsule 1 capsule, By Mouth, 3 times a day, PRN NEEDED FOR COUGH / IF NO IMPROVEMENT IN 3 DAYS NOTIFY MD/ IC, JAGRUTI, # 21 capsule, 0 Refills, Maintenance, 10/05/23 12:01:00 EST, [facility], 162.56, cm, 10/03/23 9:00:00 EST, Height Start Date: 10/05/23 Status: Ordered bisacodyl 10 mg rectal suppository See Instructions, INSERT 1 SUPP (10MG) INTO RECTUM NEEDED IF MILK OF MAGNESIA INEFFECTIVE AFTER 8 HRS/BISAC- EVAC EQUIVALENT/ IF SUPPOSITORY INEFFECTIVE AFTER 4 HRS CALL MD, # 7 supp, 11 Refills, Acute, [facility], 162.56, cm, 02/25/21 9:29:00... Start Date: 04/15/21 Status: Ordered Blood Pressure Monitor See Instructions, 1, 0, 0, 06/11/07 11:11:37, PRN, HTN, ADS OPPTHS, [facility] [id number] [place] [address] Start Date: 06/11/07 Status: Ordered calcium carbonate 500 mg (200 mg elemental calcium) oral tablet, chewable 1, tablet, By Mouth, 3 times a day, CRUSH. IC: CALCIUM CARBONATE, # 90 tablet, Refills 5, Maintenance, 10/02/23 8:50:00 EST, Route to Pharmacy Electronically, [facility], 162.56, cm, 09/19/23 10:28:00 EST, Height Start Date: 10/02/23 Status: Ordered carbamide peroxide 6.5% otic solution See Instructions, INSTILL 4 DROPS INTO EACH EAR TWICE DAILY FOR 5 DAYS EACH MONTH / IC: CARBAMIDE PEROXIDE (EAR DROPS 6.5%), # 15 mL, 11 Refills, Maintenance, 09/01/23 9:17:00 EST, [facility], 30, INSTILL 4 DROPS INTO EACH [...] capsule, 5 Refills, Maintenance, 11/23/23 20:00:00 EST, [facility], 162.56, cm, 10/03/23 9:00:00 EST, Height Start Date: 11/23/23 Status: Ordered EARWAX TREATMENT DROPS 6.5% EARWAX TREATMENT DROPS 6.5%, See Instructions, # 1 each, Refills 11, Tot. Refills 11, Maintenance, USE DIRECTED FAX [phone], 12/02/20 14:40:00 EST, [facility], 162.56, cm, 02/24/20 9:30:00 EDT, Height Start Date: 12/02/20 Status: Ordered fluoride 1.1% topical gel See Instructions, USE 1/4 INCH OF GEL TO BRUSH TEETH DAILY IN THE EVENING / BRUSH THOROUGHLY ALONG GUMLINE IC: DENTAGEL, # 56 Gm, 11 Refills, Maintenance, 09/21/23 16:44:00 EST, [facility], 30, USE 1/4 INCH OF GEL TO BRUSH TEETH DAILY IN THE EVEN... Start Date: 09/21/23 Status: Ordered Carolyn-jag 8.6 mg oral tablet 1 tablet, By Mouth, Daily in PM, FOR CONSTIPATION / SEE MILK OF MAG ORDERS / IC: SENNA 8.6 MG, # 15tablet, 6 Refills, Maintenance, 10/14/22 8:03:00 EST, [facility], 162.56, cm, 07/04/22 8:33:00EDT, Height Start Date: 10/14/22 Status: Ordered Hospital Bed See Instructions, # 1 each, Refills 0, Tot. Refills 0, Maintenance, [facility] DX: Left hip fracture, seizure dis, impulse control disorder, atypical autism. Duration ongoing NPI#[id number] Height: 5'6 Weight: 137lbs, 03/22/23 13:55:... Start [...] TAKE 1 TABLET BY MOUTH DAILY (VITAMIN), [facility] [address] [place] [address], Constant Indicator, MILLITRIUM TABLET Start Date: 06/20/08 [...] Start Date: 10/03/23 Status: Ordered Polysporin 500 u-83531 u/gm ointment See Instructions, APPLY A THIN LAYER TOPICALLY TWICE DAILY NEEDED TO RED, IRRITATED SKIN X 7 DAYS / SEE ANCILLARY ORDERS (BACITRACIN-POLYMYXIN OINTMENT), # 28.3 Gm, 5 Refills, Maintenance, 04/18/23 8:59:00 EDT, [facility], 7, APPLY A THIN LAYE... Start Date: 04/18/23 Status: Ordered pravastatin 40 mg oral tablet 1 tablet, By Mouth, Daily, IN PM FOR HYPERLIPIDEMIA., # 30 tablet, 5 Refills, Maintenance, 248:50:00 EST, [facility], 162.56, cm, 09/19/23 10:28:00 EST, Height Start Date: 10/02/23 Status: Ordered Profola oral tablet 1 tablet, By Mouth, Daily, # 30 tablet, 11 Refills, Maintenance, 05/19/23 10:41:00 EDT, [facility], Partial fill upon patient request if [...] tablet, 11 Refills, Maintenance, 10/26/23 8:49:00 EST, [facility], 162.56, cm, 10/03/23 9:00:00 EST, Height Start Date: 10/26/23 Status: Ordered SUDOGEST 30 MG TABLETS SUDOGEST 30 MG TABLETS, See Instructions, # 30 each, Refills 11, Tot. Refills 11, Maintenance, TAKE30 MG Q6H PRN PER DR CRANE FAX [phone], 02/01/19 9:46:36 EDT, Compound Start Date: 02/01/19 Status: Ordered Thera oral tablet 1 tablet, By Mouth, Daily in AM, VITAMIN., # 30 tablet, 5 Refills, Maintenance, 10/25/23 10:03:00 EST, [facility], 30, TAKE 1 TABLET BY MOUTH [...] mL, 1 Refills, Maintenance, 12/01/20 8:15:00 EST, [place], [facility], 1 sprays Topically 2 times a day, 162.56, cm, 02/24/20 9:30:00 EDT, Height Start Date: 12/01/20 Status: Ordered TUSSIN DM TUSSIN DM, See Instructions, # 420 mL, Refills 1, Tot. Refills 1, Maintenance, 10 ML PO Q4H PRN FORCOUGH AT BEDTIME PER DR CRANE FAX [phone], 05/22/20 8:48:00 EDT, [facility], 162.56, cm, 02/24/20 [...] Confirmed Active Vitamin D deficiency Confirmed Active 01296; repeat 2020 2colo 2006 nl, repeat 2015 3Colonoscopy 2016 positive polyp, repeat 2020. 4colo 2015 Social History Social History Type Response Smoking Status Never smoker entered on: 02/01/16 Sex Patient Care team information Care Team Personnel Name: Schuyler Crane MD Position: [facility] Physician - Primary Care Member Role: PCP Address: Address: [address] [place] [address]- Care Team Related Persons Name: ELLE ALMEIDA Address: [address] [address] Name: ZAK SHELL
--- OUTSIDE RECORDS SUMMARY | 2024-04-02 09:44 | XMS_ITS | Continuity of Care Document ---
Author Organization [facility] Todd lt Address [address] [place] [address]- Care Team Providers Care Core Blower Name Role Phone Schuyler Crane MD Primary Care Physician [phone] [facility]counter [facility] - 10/30/21 [facility] Adult [address] [place] [address]- Allergies, Adverse Reactions, Alerts Substance Reaction Severity [...] Replace Required Details, Route to Pharmacy Electronically, [facility], 162.56, cm, 02/25/21 9:29:00 EDT, He... Start Date: 08/31/21 Status: Ordered amLODIPine 10 mg oral tablet See Instructions, TAKE 1 TABLET (10 MG) BY MOUTH DAILY IN AM FOR HYPERTENSION, # 30 tablet, 5 Refills, [facility], 162.56, cm, 02/25/21 9:29:00 EDT, Height Start Date: 09/30/21 Status: Ordered ANTACID 500 MG CHEWABLE TAB ANTACID 500 MG CHEWABLE TAB, See Instructions, # 90 each, Refills 3, Tot. Refills 3, Maintenance, TAKE 1 TABLET PO TID FOR OSTEOPOROSIS. MAY CRUSH TABLET PER DR ROSA MARIA CRUZ [phone], 07/20/18 12:11:49EDT, Compound Start Date: 07/20/18 Status: Ordered bisacodyl 10 mg rectal suppository See Instructions, INSERT 1 SUPP (10MG) INTO RECTUM NEEDED IF MILK OF MAGNESIA INEFFECTIVE AFTER 8 HRS/BISAC- EVAC EQUIVALENT/ IF SUPPOSITORY INEFFECTIVE AFTER 4 HRS CALL MD, # 7 supp, 11 Refills, Acute, [facility], 162.56, cm, 02/25/21 9:29:00... Start Date: 04/15/21 Status: Ordered Blood Pressure Monitor See Instructions, 1, 0, 0, 06/11/07 11:11:37, PRN, HTN, ADS OPPTHS, [facility] [id number] [place] [address] Start Date: 06/11/07 Status: Ordered calcium carbonate 500 mg (200 mg elemental calcium) oral tablet, chewable 500 mg, 1, tablet, By Mouth, 3 times a day, PER DR CRANE, # 90 tablet, Refills 5, Tot. Refills 5, Maintenance, 09/29/21 14:35:00 EST, Route to Pharmacy Electronically, [facility], 162.56, cm, 02/25/21 9:29:00 EDT, Height Start Date: 09/29/21 Stop Date: 03/28/22 Status: Ordered cetirizine 10 mg oral tablet See Instructions, TAKE 1 TABLET (10 MG) BY MOUTH DAILY IN THE AM FOR SEASONAL ALLERGIES FROM DECEMBER THROUGH JUNE (START 12/24) SEE ANCILLARY ORDERS, # 30 tablet, 5 Refills, Maintenance, [facility], 162.56, cm, 02/25/21 9:29:00 EDT, He... Start Date: 02/25/21 Status: Ordered cetirizine 10 mg oral tablet 1 tablet, By Mouth, Daily in AM, FOR SEASONAL ALLERGIES FROM DECEMBER THROUGH JUNE (START 12/24) SEE ANCILLARY ORDERS., # 30 tablet, 5 Refills, Maintenance, 02/25/21 13:04:00 EDT, [facility], 162.56, cm, 02/25/21 9:29:00 EDT, Height [...] Gm, 11 Refills, Maintenance, 08/07/20 11:11:00 EST, [facility], 30, USE 1/4 INCH OF GEL TO BRUSH TEETH DAILY IN THE EVENING / BRUSH T... Start Date: 08/07/20 Status: Ordered docusate sodium 100 mg oral capsule See Instructions, TAKE 1 CAPSULE (100 MG) BY MOUTH TWICE DAILY FOR CONSTIPATION (DOCUSATE SODIUM 100 MG), # 60 capsule, 5 Refills, [facility], 162.56, cm, 02/25/21 9:29:00 EDT, Height Start Date: 07/23/21 Status: Ordered EARWAX TREATMENT DROPS 6.5% EARWAX TREATMENT DROPS 6.5%, See Instructions, # 1 each, Refills 11, Tot. Refills 11, Maintenance, USE DIRECTED FAX [phone], 12/02/20 14:40:00 EST, [facility], 162.56, cm, 02/24/20 9:30:00 EDT, Height Start Date: 12/02/20 Status: Ordered Milk of Magnesia 8% oral suspension See Instructions, TAKE 2 TABLESPOONFULS (30 ML) BY MOUTH AT BEDTIME NEEDED FOR CONSTIPATION ON DAY 3 OF NO BM / SEE BISCOLAX SUPP ORDER 30ML=2,400MG, # 300 mL, 5 Refills, Acute, [facility], 162.56, cm, 02/24/20 9:30:00 EDT, Height Start Date: 10/30/20 Status: Ordered MILLITRIUM TABLET See Instructions, 30, 11, 11, 06/20/08 13:07:29, TAKE 1 TABLET BY MOUTH DAILY (VITAMIN), [facility] [address] [place] [address], Constant Indicator, MILLITRIUM TABLET Start Date: 06/20/08 [...] bid prn nasal dryness PER [employer]W[facility] [employer] EDUCATION DIRECTOR-C FAX [phone], 11/02/18 14:15:30 EST, Compound Start Date: 11/02/18 Status: Ordered Ocuflox 0.3% solution 2 drops, Eyes, Both, 4 times a day, # 10 mL, 0 Refills, Maintenance, 01/10/17 14:21:09, Ophth Solution, 2 drops Eyes, Both 4 times a day Start Date: 01/10/17 Status: Ordered Polysporin 500 u-50618 u/gm ointment See Instructions, APPLY A THIN LAYER TOPICALLY TWICE DAILY NEEDED TO RED, IRRITATED SKIN X 7 DAYS / SEE ANCILLARY ORDERS (BACITRACIN-POLYMYXIN OINTMENT), # 28.3 Gm, 5 Refills, Maintenance, 04/14/21 14:39:00 EDT, [facility], 7, APPLY A THIN LAY... Start Date: 04/14/21 Status: Ordered pravastatin 40 mg oral tablet 1 tablet, By Mouth, Daily, IN PM FOR HYPERLIPIDEMIA., # 30 tablet, 5 Refills, Maintenance, 09/03/2112:22:00 EST, [facility], 162.56, cm, 02/25/21 9:29:00 EDT, Height [...] MG Q6H PRN PER DR CRANE FAX [phone], 02/01/19 9:46:36 EDT, Compound Start Date: 02/01/19 Status: Ordered Suphedrin 30 mg oral tablet See Instructions, TAKE 1 TAB (30 MG) BY MOUTH EVERY 6 HRS NEEDED FOR NASAL CONGESTION/ SEE ANCILLARY ORDERS (SUDOGEST EQUIVALENT), # 30 tablet, 11 Refills, Acute, [facility], 162.56, cm, 02/24/20 9:30:00 EDT, Height Start Date: 05/22/20 Status: Ordered THERA CAPLETS THERA CAPLETS, See Instructions, # 30 each, Refills 5, Tot. Refills 5, Maintenance, TAKE ONE CAPLETBY MOUTH QD PER DR CRANE FAX [phone], 10/08/20 11:48:00 EST, [facility], 162.56, cm, 02/24/20 9:30:00 EDT, Height Start Date: 10/08/20 Status: Ordered Thera oral tablet 1 tablet, By Mouth, Daily in AM, VITAMIN., # 30 tablet, 5 Refills, Maintenance, 08/27/21 13:53:00 EST, [facility], 30, 1 tablet By Mouth Daily in AM,Instr:VITAMIN., 162.56, cm, 02/25/21 9:29:00 EDT, Height Start Date: 08/27/21 Status: Ordered Tinactin 1% spray 1 sprays, Topically, 2 times a day, # 120 mL, 1 Refills, Maintenance, 12/01/20 8:15:00 EST, [place], [facility], 1 sprays Topically 2 times a day, 162.56, cm, 02/24/20 9:30:00 EDT, Height Start Date: 12/01/20 Status: Ordered TUSSIN DM KAILYNIN DM, See Instructions, # 420 mL, Refills 1, Tot. Refills 1, Maintenance, 10 ML PO Q4H PRN FORCOUGH AT BEDTIME PER DR CRANE FAX [phone], 05/22/20 8:48:00 EDT, [facility], 162.56, cm, 02/24/20 [...] Active Underweight(Confirmed) Active Vitamin D deficiency(Confirmed) Active 49059; repeat 2020 2colo 2005 nl, repeat 2015 3Colonoscopy 2016 positive polyp, repeat 2020. 4colo 2015 Social History Social History Type Response Smoking Status Never smoker entered on: 02/01/16 Sex
--- OUTSIDE RECORDS SUMMARY | 2024-04-02 09:44 | XMS_ITS | Continuity of Care Document ---
Author Organization [facility] Salvatore Todd lt Address [address] [place] [address]- Care Team Providers Care Almond Grinder Name Role Phone Schuyler Crane MD Primary Care Physician [phone] [facility] 04[facility]23 - 05/06/23 [facility] Adult [address] [place] [address]- Allergies, Adverse Reactions, Alerts Substance Reaction Severity [...] G cristy 1Result Comment: Td - [facility]# [id number] 2Result Comment: PCV23 - [facility]# [id number] 3Result Comment: [facility]# [id number] 4Result Comment: [10/28/2016] pharmacy 5Admin Note: given [...] 10/14/22 8:03:00 EST, Route to Pharmacy Electronically, [facility], 162.56, cm, 07/04/22 8:33:00 EDT, Height Start Date: 10/14/22 Status: Ordered All Day Allergy 10 mg oral tablet See Instructions, TAKE 1 TABLET (10 MG) BY MOUTH DAILY IN THE AM FOR SEASONAL ALLERGIES FROM DECEMBER THROUGH JUNE (START 12/24 / END 07/25) SEE ANCILLARY ORDERS, # 30 tablet, 2 Refills, Maintenance, 04/13/23 14:33:00 EDT, [facility], 162.56, cm, 0... Start Date: 04/13/23 Status: Ordered amLODIPine 10 mg oral tablet 1 tablet, By Mouth, Daily in AM, FOR HYPERTENSION., # 30 tablet, 5 Refills, Maintenance, 04/19/23 23:11:00 EDT, [facility], 162.56, cm, 04/10/23 7:35:00 EDT, Height Start Date: 04/19/23 Status: Ordered ANTACID 500 MG CHEWABLE TAB ANTACID 500 MG CHEWABLE TAB, See Instructions, # 90 each, Refills 3, Tot. Refills 3, Maintenance, TAKE 1 TABLET PO TID FOR OSTEOPOROSIS. MAY CRUSH TABLET PER DR ROSA MARIA CRUZ [phone], 07/20/18 12:11:49EDT, Compound Start Date: 07/20/18 Status: Ordered benzonatate 100 mg oral capsule 1 capsule, By Mouth, 3 times a day, PRN NEEDED FOR COUGH / IF NO IMPROVEMENT IN 3 DAYS NOTIFY MD/ IC, JAGRUTI, # 21 capsule, 0 Refills, Maintenance, 02/17/23 8:57:00 EDT, [facility], 162.56, cm, 07/04/22 8:33:00 EDT, Height Start Date: 02/17/23 Status: Ordered bisacodyl 10 mg rectal suppository See Instructions, INSERT 1 SUPP (10MG) INTO RECTUM NEEDED IF MILK OF MAGNESIA INEFFECTIVE AFTER 8 HRS/BISAC- EVAC EQUIVALENT/ IF SUPPOSITORY INEFFECTIVE AFTER 4 HRS CALL MD, # 7 supp, 11 Refills, Acute, [facility], 162.56, cm, 02/25/21 9:29:00... Start Date: 04/15/21 Status: Ordered Blood Pressure Monitor See Instructions, 1, 0, 0, 06/11/07 11:11:37, PRN, HTN, ADS OPPTHS, [facility] [place] [address] Start Date: 06/11/07 Status: Ordered calcium carbonate 500 mg (200 mg elemental calcium) oral tablet, chewable 1, tablet, By Mouth, 3 times a day, CRUSH. IC: CALCIUM CARBONATE, # 90 tablet, Refills 5, Maintenance, 02/17/23 8:57:00 EDT, Route to Pharmacy Electronically, [facility], 162.56, cm, 07/04/22 8:33:00 EDT, Height Start Date: 02/17/23 Status: Ordered carbamide peroxide 6.5% otic solution See Instructions, INSTILL 4 DROPS INTO EACH EAR TWICE DAILY FOR 5 DAYS EACH MONTH / IC: CARBAMIDE PEROXIDE (EAR DROPS 6.5%), # 15 mL, 11 Refills, Maintenance, 08/21/22 7:49:00 EST, [facility], 30, INSTILL 4 DROPS INTO EACH [...] capsule, 5 Refills, Maintenance, 10/20/22 6:09:00 EST, [facility], 162.56, cm, 07/04/22 8:33:00 EDT, Height Start Date: 10/20/22 Status: Ordered EARWAX TREATMENT DROPS 6.5% EARWAX TREATMENT DROPS 6.5%, See Instructions, # 1 each, Refills 11, Tot. Refills 11, Maintenance, USE DIRECTED FAX [phone], 12/02/20 14:40:00 EST, [facility], 162.56, cm, 02/24/20 9:30:00 EDT, Height Start Date: 12/02/20 Status: Ordered fluoride 1.1% topical gel See Instructions, USE 1/4 INCH OF GEL TO BRUSH TEETH DAILY IN THE EVENING / BRUSH THOROUGHLY ALONG GUMLINE IC: DENTAGEL, # 56 Gm, 11 Refills, [facility], 30, USE 1/4 INCH OF GEL TO BRUSH TEETH DAILY IN THE EVENING / BRUSH THOROUGHLY ALONG GUMLINE... Start Date: 01/28/22 Status: Ordered Carolyn-jag 8.6 mg oral tablet 1 tablet, By Mouth, Daily in PM, FOR CONSTIPATION / SEE MILK OF MAG ORDERS / IC: SENNA 8.6 MG, # 15tablet, 6 Refills, Maintenance, 10/14/22 8:03:00 EST, [facility], 162.56, cm, 07/04/22 8:33:00EDT, Height Start Date: 10/14/22 Status: Ordered Hospital Bed See Instructions, # 1 each, Refills 0, Tot. Refills 0, Maintenance, [facility] DX: Left hip fracture, seizure dis, impulse control disorder, atypical autism. Duration ongoing NPI#[id number] Height: 5'6 Weight: 137lbs, 03/22/23 13:55:... Start Date: 03/22/23 Status: Ordered Milk of Magnesia 8% oral suspension See Instructions, TAKE 2 TABLESPOONFULS (30 ML) BY MOUTH AT BEDTIME NEEDED FOR CONSTIPATION ON DAY 3 OF NO BM / SEE BISCOLAX SUPP ORDER 30ML=2,400MG, # 300 mL, 5 Refills, Acute, [facility], 162.56, cm, 02/24/20 9:30:00 EDT, Height Start Date: 10/30/20 Status: Ordered MILLITRIUM TABLET See Instructions, 30, 11, 11, 06/20/08 13:07:29, TAKE 1 TABLET BY MOUTH DAILY (VITAMIN), [facility] [address] [place] [address], Constant Indicator, MILLITRIUM TABLET Start Date: 06/20/08 Status: Ordered OCEAN SALINE NASAL MIST OCEAN SALINE NASAL MIST, See Instructions, # 1 each, Refills 2, Tot. Refills 2, Maintenance, use bid prn nasal dryness, 11/06/18 9:57:36 EST, Compound Start Date: 11/06/18 Status: Ordered Polysporin 500 u-38213 u/gm ointment See Instructions, APPLY A THIN LAYER TOPICALLY TWICE DAILY NEEDED TO RED, IRRITATED SKIN X 7 DAYS / SEE ANCILLARY ORDERS (BACITRACIN-POLYMYXIN OINTMENT), # 28.3 Gm, 5 Refills, Maintenance, 04/18/23 8:59:00 EDT, [facility], 7, APPLY A THIN LAYE... Start Date: 04/18/23 Status: Ordered pravastatin 40 mg oral tablet See Instructions, TAKE 1 TABLET (40 MG) BY MOUTH DAILY IN PM FOR HYPERLIPIDEMIA, # 30 tablet, 5 Refills, Maintenance, 02/17/23 13:00:00 EDT, [facility], 162.56, cm, 07/04/22 8:33:00 EDT, Height [...] (SUPHEDRIN EQUIVALENT), # 30 tablet, 11 Refills, [facility], 162.56, cm, 03/24/22 10:31:00 EDT, Height Start Date: 04/22/22 Status: Ordered SUDOGEST 30 MG TABLETS SUDOGEST 30 MG TABLETS, See Instructions, # 30 each, Refills 11, Tot. Refills 11, Maintenance, TAKE30 MG Q6H PRN PER DR CRANE FAX [phone], 02/01/19 9:46:36 EDT, Compound Start Date: 02/01/19 Status: Ordered THERA CAPLETS THERA CAPLETS, See Instructions, # 30 each, Refills 5, Tot. Refills 5, Maintenance, TAKE ONE CAPLETBY MOUTH QD PER DR CRANE FAX [phone], 10/08/20 11:48:00 EST, [facility], 162.56, cm, 02/24/20 [...] mL, 1 Refills, Maintenance, 12/01/20 8:15:00 EST, [place], 1 sprays Topically 2 times a day, 162.56, cm, 02/24/20 9:30:00 EDT, Height Start Date: 12/01/20 Status: Ordered TUSSIN DM TUSSIN DM, See Instructions, # 420 mL, Refills 1, Tot. Refills 1, Maintenance, 10 ML PO Q4H PRN FORCOUGH AT BEDTIME PER DR CRANE FAX [phone], 05/22/20 8:48:00 EDT, [facility], 162.56, cm, 02/24/20 [...] Confirmed Active Vitamin D deficiency Confirmed Active 59489; repeat 2020 2colo 2006 nl, repeat 2015 3Colonoscopy 2016 positive polyp, repeat 2020. 4colo 2015 Social History Social History Type Response Smoking Status Never smoker entered on: 02/01/16 Sex Patient Care team information Care Team Personnel Name: Rosa Maria HUSTON, Schuyler Pope Position: [facility] Physician - Primary Care Member Role: PCP Address: Address: [address] [place] [address]- Care Team Related Persons Name: ELLE ALMEIDA Address: home [address] [place] [address] Name: ZAK SHELL
--- OUTSIDE RECORDS SUMMARY | 2024-04-02 09:44 | XMS_ITS | Continuity of Care Document ---
Author Organization [facility] Mike Chase Todd lt Address [address] [place] [address]- Care Team Providers Care Post Graduate Internship Name Role Phone Schuyler Crane MD Primary Care Physician [facility] 10[facility]23 - 11/24/23 [facility] [address] [place] [address]- Allergies, Adverse Reactions, Alerts Substance Reaction Severity [...] G cristy 1Result Comment: Td - [facility][NOTE 3]# [id number] 2Result Comment: PCV23 - [facility][NOTE 3]# [id number] 3Result Comment: [facility][NOTE 3]# [id number] 4Result Comment: [10/28/2016] pharmacy 5Admin Note: given [...] 10/14/22 8:03:00 EST, Route to Pharmacy Electronically, [facility], 162.56, cm, 07/04/22 8:33:00 EDT, Height Start Date: 10/14/22 Status: Ordered All Day Allergy 10 mg oral tablet See Instructions, TAKE 1 TABLET (10 MG) BY MOUTH DAILY IN THE AM FOR SEASONAL ALLERGIES FROM DECEMBER THROUGH JUNE (START 12/24 / END 07/25) SEE ANCILLARY ORDERS, # 30 tablet, 2 Refills, Maintenance, 04/13/23 14:33:00 EDT, [facility], 162.56, cm, 0... Start Date: 04/13/23 Status: Ordered amLODIPine 10 mg oral tablet 1 tablet, By Mouth, Daily in AM, FOR HYPERTENSION., # 30 tablet, 5 Refills, Maintenance, 10/25/23 0:22:00 EST, [facility], 162.56, cm, 10/03/23 9:00:00 EST, Height Start Date: 10/25/23 Status: Ordered ANTACID 500 MG CHEWABLE TAB ANTACID 500 MG CHEWABLE TAB, See Instructions, # 90 each, Refills 3, Tot. Refills 3, Maintenance, TAKE 1 TABLET PO TID FOR OSTEOPOROSIS. MAY CRUSH TABLET PER DR ROSA MARIA CRUZ [phone], 07/20/18 12:11:49EDT, Compound Start Date: 07/20/18 Status: Ordered benzonatate 100 mg oral capsule 1 capsule, By Mouth, 3 times a day, PRN NEEDED FOR COUGH / IF NO IMPROVEMENT IN 3 DAYS NOTIFY MD/ IC, JAGRUTI, # 21 capsule, 0 Refills, Maintenance, 10/05/23 12:01:00 EST, [facility], 162.56, cm, 10/03/23 9:00:00 EST, Height Start Date: 10/05/23 Status: Ordered bisacodyl 10 mg rectal suppository See Instructions, INSERT 1 SUPP (10MG) INTO RECTUM NEEDED IF MILK OF MAGNESIA INEFFECTIVE AFTER 8 HRS/BISAC- EVAC EQUIVALENT/ IF SUPPOSITORY INEFFECTIVE AFTER 4 HRS CALL MD, # 7 supp, 11 Refills, Acute, [facility], 162.56, cm, 02/25/21 9:29:00... Start Date: 04/15/21 Status: Ordered Blood Pressure Monitor See Instructions, 1, 0, 0, 06/11/07 11:11:37, PRN, HTN, ADS OPPTHS, [facility] [place] [address] Start Date: 06/11/07 Status: Ordered calcium carbonate 500 mg (200 mg elemental calcium) oral tablet, chewable 1, tablet, By Mouth, 3 times a day, CRUSH. IC: CALCIUM CARBONATE, # 90 tablet, Refills 5, Maintenance, 10/02/23 8:50:00 EST, Route to Pharmacy Electronically, [facility], 162.56, cm, 09/19/23 10:28:00 EST, Height Start Date: 10/02/23 Status: Ordered carbamide peroxide 6.5% otic solution See Instructions, INSTILL 4 DROPS INTO EACH EAR TWICE DAILY FOR 5 DAYS EACH MONTH / IC: CARBAMIDE PEROXIDE (EAR DROPS 6.5%), # 15 mL, 11 Refills, Maintenance, 09/01/23 9:17:00 EST, [facility], 30, INSTILL 4 DROPS INTO EACH [...] capsule, 5 Refills, Maintenance, 11/23/23 20:00:00 EST, [facility], 162.56, cm, 10/03/23 9:00:00 EST, Height Start Date: 11/23/23 Status: Ordered EARWAX TREATMENT DROPS 6.5% EARWAX TREATMENT DROPS 6.5%, See Instructions, # 1 each, Refills 11, Tot. Refills 11, Maintenance, USE DIRECTED FAX [phone], 12/02/20 14:40:00 EST, [facility], 162.56, cm, 02/24/20 9:30:00 EDT, Height Start Date: 12/02/20 Status: Ordered fluoride 1.1% topical gel See Instructions, USE 1/4 INCH OF GEL TO BRUSH TEETH DAILY IN THE EVENING / BRUSH THOROUGHLY ALONG GUMLINE IC: DENTAGEL, # 56 Gm, 11 Refills, Maintenance, 09/21/23 16:44:00 EST, [facility], 30, USE 1/4 INCH OF GEL TO BRUSH TEETH DAILY IN THE EVEN... Start Date: 09/21/23 Status: Ordered Carolyn-jag 8.6 mg oral tablet 1 tablet, By Mouth, Daily in PM, FOR CONSTIPATION / SEE MILK OF MAG ORDERS / IC: SENNA 8.6 MG, # 15tablet, 6 Refills, Maintenance, 10/14/22 8:03:00 EST, [facility], 162.56, cm, 07/04/22 8:33:00EDT, Height Start Date: 10/14/22 Status: Ordered Hospital Bed See Instructions, # 1 each, Refills 0, Tot. Refills 0, Maintenance, [facility] DX: Left hip fracture, seizure dis, impulse control disorder, atypical autism. Duration ongoing NPI#[id number] Height: 5'6 Weight: 137lbs, 03/22/23 13:55:... Start Date: 03/22/23 Status: Ordered Milk of Magnesia 8% oral suspension See Instructions, TAKE 2 TABLESPOONFULS (30 ML) BY MOUTH AT BEDTIME NEEDED FOR CONSTIPATION ON DAY 3 OF NO BM / SEE BISCOLAX SUPP ORDER 30ML=2,400MG, # 300 mL, 5 Refills, Acute, [facility], 162.56, cm, 02/24/20 9:30:00 EDT, Height Start Date: 10/30/20 Status: Ordered MILLITRIUM TABLET See Instructions, 30, 11, 11, 06/20/08 13:07:29, TAKE 1 TABLET BY MOUTH DAILY (VITAMIN), [facility] [address] [place] [id number], Constant Indicator, MILLITRIUM TABLET Start Date: 06/20/08 [...] tablet, 0 Refills, Maintenance, 10/03/23 8:50:00 EST, [facility], Partial fill upon patient request if the prescription... Start Date: 10/03/23 Status: Ordered Polysporin 500 u-80924 u/gm ointment See Instructions, APPLY A THIN LAYER TOPICALLY TWICE DAILY NEEDED TO RED, IRRITATED SKIN X 7 DAYS / SEE ANCILLARY ORDERS (BACITRACIN-POLYMYXIN OINTMENT), # 28.3 Gm, 5 Refills, Maintenance, 04/18/23 8:59:00 EDT, [facility], 7, APPLY A THIN LAYE... Start Date: 04/18/23 Status: Ordered pravastatin 40 mg oral tablet 1 tablet, By Mouth, Daily, IN PM FOR HYPERLIPIDEMIA., # 30 tablet, 5 Refills, Maintenance, 248:50:00 EST, [facility], 162.56, cm, 09/19/23 10:28:00 EST, Height Start Date: 10/02/23 Status: Ordered Profola oral tablet 1 tablet, By Mouth, Daily, # 30 tablet, 11 Refills, Maintenance, 05/19/23 10:41:00 EDT, [facility], Partial fill upon patient request if [...] tablet, 11 Refills, Maintenance, 10/26/23 8:49:00 EST, [facility], 162.56, cm, 10/03/23 9:00:00 EST, Height Start Date: 10/26/23 Status: Ordered SUDOGEST 30 MG TABLETS SUDOGEST 30 MG TABLETS, See Instructions, # 30 each, Refills 11, Tot. Refills 11, Maintenance, TAKE30 MG Q6H PRN PER DR CRANE FAX [phone], 02/01/19 9:46:36 EDT, [facility] Start Date: 02/01/19 Status: Ordered Thera oral tablet 1 tablet, By Mouth, Daily in AM, VITAMIN., # 30 tablet, 5 Refills, Maintenance, 10/25/23 10:03:00 EST, [facility], 30, TAKE 1 TABLET BY MOUTH [...] mL, 1 Refills, Maintenance, 12/01/20 8:15:00 EST, [place], [facility], 1 sprays Topically 2 times a day, 162.56, cm, 02/24/20 9:30:00 EDT, Height Start Date: 12/01/20 Status: Ordered CHAKASSIN KUSHAL AVINAIN KUSHAL, See Instructions, # 420 mL, Refills 1, Tot. Refills 1, Maintenance, 10 ML PO Q4H PRN FORCOUGH AT BEDTIME PER DR CRANE FAX [phone], 05/22/20 8:48:00 EDT, [facility], 162.56, cm, 02/24/20 [...] Confirmed Active Vitamin D deficiency Confirmed Active 53754; repeat 2020 2colo 2005 nl, repeat 2015 3Colonoscopy 2016 positive polyp, repeat 2020. 4colo 2015 Social History Social History Type Response Smoking Status Never smoker entered on: 02/01/16 Sex Patient Care team information Care Team Personnel Name: Rosa Maria HUSTON, Schuyler Pope Position: [facility] Physician - Primary Care Member Role: PCP Address: Address: [address] [place] [address] [place] [address]- Care Team Related Persons Name: ELLE ALMEIDA Address: home [address] [place] [id number] Name: ZAK SHELL
--- OUTSIDE RECORDS SUMMARY | 2024-04-02 09:45 | XMS_ITS | Continuity of Care Document ---
Author Organization [facility] Todd lt Address [address] [place] [address]- Care Team Providers Care Process Stripper Name Role Phone Schuyler Crane MD Primary Care Physician [place] [facility] 05/25/22 [facility] Adult [address] [place] [address]- Attending Physician: Not on Staff, Attending MD [...] Adult (oldterm) 08/25/04 Vishal muniz 1Result Comment: [facility]# [id number] 2Result Comment: [10/28/2016] pharmacy 3Admin Note: given [...] Replace Required Details, Route to Pharmacy Electronically, [facility], 162.56, cm, 02/25/21 9:29:00 EDT, He... Start Date: 08/31/21 Status: Ordered amLODIPine 10 mg oral tablet See Instructions, TAKE 1 TABLET (10 MG) BY MOUTH DAILY IN AM FOR HYPERTENSION, # 30 tablet, 5 Refills, [facility], 162.56, cm, 03/24/22 10:31:00 EDT, Height Start Date: 04/01/22 Status: Ordered ANTACID 500 MG CHEWABLE TAB ANTACID 500 MG CHEWABLE TAB, See Instructions, # 90 each, Refills 3, Tot. Refills 3, Maintenance, TAKE 1 TABLET PO TID FOR OSTEOPOROSIS. MAY CRUSH TABLET PER DR ROSA MARIA CRUZ [phone], 07/20/18 12:11:49EDT, Compound Start Date: 07/20/18 Status: Ordered benzonatate 100 mg oral capsule 1 capsule, By Mouth, 3 times a day, PRN NEEDED FOR COUGH / IF NO IMPROVEMENT IN 3 DAYS NOTIFY MD/ IC, JAGRUTI, # 21 capsule, 0 Refills, [facility], 162.56, cm, 12/06/21 13:34:00 EDT, Height Start Date: 02/25/22 Status: Ordered bisacodyl 10 mg rectal suppository See Instructions, INSERT 1 SUPP (10MG) INTO RECTUM NEEDED IF MILK OF MAGNESIA INEFFECTIVE AFTER 8 HRS/BISAC- EVAC EQUIVALENT/ IF SUPPOSITORY INEFFECTIVE AFTER 4 HRS CALL MD, # 7 supp, 11 Refills, Acute, [facility], 162.56, cm, 02/25/21 9:29:00... Start Date: 04/15/21 Status: Ordered Blood Pressure Monitor See Instructions, 1, 0, 0, 06/11/07 11:11:37, PRN, HTN, ADS OPPTHS, [facility] [address] [address] Start Date: 06/11/07 Status: Ordered calcium carbonate 500 mg (200 mg elemental calcium) oral tablet, chewable See Instructions, TAKE 1 TABLET (500 MG) BY MOUTH 3 TIMES A DAY FOR OSTEOPOROSIS MAY CRUSH TABLET IC: CALCIUM CARBONATE, # 90 tablet, Refills 5, Instructions Replace Required Details, Route to Pharmacy Electronically, [facility], 162.56, cm, 11/23... Start Date: 02/25/22 Status: Ordered cetirizine 10 mg oral tablet 1 tablet, By Mouth, Daily in AM, FOR SEASONAL ALLERGIES FROM DECEMBER THROUGH JUNE (START 12/24) SEE ANCILLARY ORDERS., # 30 tablet, 5 Refills, [facility], 162.56, cm, 12/06/21 13:34:00 EDT, Height [...] 100 MG), # 60 capsule, 5 Refills, [facility], 162.56, cm, 12/06/21 13:34:00 EDT, Height Start Date: 01/13/22 Status: Ordered EARWAX TREATMENT DROPS 6.5% EARWAX TREATMENT DROPS 6.5%, See Instructions, # 1 each, Refills 11, Tot. Refills 11, Maintenance, USE DIRECTED FAX [phone], 12/02/20 14:40:00 EST, [facility];, [facility], 162.56, cm, [...] 30ML=2,400MG, # 300 mL, 5 Refills, Acute, [facility], 162.56, cm, 02/24/20 9:30:00 EDT, Height Start Date: 10/30/20 Status: Ordered MILLITRIUM TABLET See Instructions, 30, 11, 11, 06/20/08 13:07:29, TAKE 1 TABLET BY MOUTH DAILY (VITAMIN), [facility] [address] [place] [id number], Constant Indicator, MILLITRIUM TABLET Start Date: 06/20/08 [...] bid prn nasal dryness PER DAWIT STOREY PHYSICIAN RELATIONS REPRESENTATIVE-C FAX [phone], 11/02/18 14:15:30 EST, Compound Start Date: 11/02/18 Status: Ordered Ocuflox 0.3% solution 2 drops, Eyes, Both, 4 times a day, # 10 mL, 0 Refills, Maintenance, 01/10/17 14:21:09, Ophth Solution, 2 drops Eyes, Both 4 times a day Start Date: 01/10/17 Status: Ordered Polysporin 500 u-49684 u/gm ointment See Instructions, APPLY A THIN LAYER TOPICALLY TWICE DAILY NEEDED TO RED, IRRITATED SKIN X 7 DAYS / SEE ANCILLARY ORDERS (BACITRACIN-POLYMYXIN OINTMENT), # 28.3 Gm, 5 Refills, Maintenance, 04/14/21 14:39:00 EDT, [facility], 7, APPLY A THIN LAY... Start Date: 04/14/21 Status: Ordered pravastatin 40 mg oral tablet 1 tablet, By Mouth, Daily, IN PM FOR HYPERLIPIDEMIA., # 30 tablet, 5 Refills, [facility], 162.56, cm, 12/06/21 13:34:00 EDT, Height [...] (SUPHEDRIN EQUIVALENT), # 30 tablet, 11 Refills, [facility], 162.56, cm, 03/24/22 10:31:00 EDT, Height Start Date: 04/22/22 Status: Ordered SUDOGEST 30 MG TABLETS SUDOGEST 30 MG TABLETS, See Instructions, # 30 each, Refills 11, Tot. Refills 11, Maintenance, TAKE30 MG Q6H PRN PER DR CRANE FAX [phone], 02/01/19 9:46:36 EDT, Compound Start Date: 02/01/19 Status: Ordered THERA CAPLETS THERA CAPLETS, See Instructions, # 30 each, Refills 5, Tot. Refills 5, Maintenance, TAKE ONE CAPLETBY MOUTH QD PER DR CRANE FAX [phone], 10/08/20 11:48:00 EST, [facility], 162.56, cm, 02/24/20 9:30:00 EDT, Height Start Date: 10/08/20 Status: Ordered Thera oral tablet See Instructions, TAKE 1 TABLET BY MOUTH DAILY IN THE AM (VITAMIN), # 30 tablet, 5 Refills, [facility], 30, TAKE 1 TABLET BY MOUTH [...] mL, 1 Refills, Maintenance, 12/01/20 8:15:00 EST, [place], 1 sprays Topically 2 times a day, 162.56, cm, 02/24/20 9:30:00 EDT, Height Start Date: 12/01/20 Status: Ordered TUSSIN DM TUSSIN DM, See Instructions, # 420 mL, Refills 1, Tot. Refills 1, Maintenance, 10 ML PO Q4H PRN FORCOUGH AT BEDTIME PER DR CRANE FAX [phone], 05/22/20 8:48:00 EDT, Compound, 162.56, cm, 02/24/20 [...] Seizure disorder(Confirmed) Active Vitamin D deficiency(Confirmed) Active 85989; repeat 2020 2colo 2006 nl, repeat 2016 3Colonoscopy 2016 positive polyp, repeat 2020. 4colo 2015 Social History Social History Type Response Smoking Status Never smoker entered on: 02/01/16 Sex Care Team Personnel Name: Schuyler Crane MD Address: [address] [place] [id number]
--- OUTSIDE RECORDS SUMMARY | 2024-04-02 09:45 | XMS_ITS | Continuity of Care Document ---
Author Organization [facility] Todd lt Address [address] [place] [address]- Care Team Providers Care Darkroom Worker Name Role Phone Schuyler Crane MD Primary Care Physician Encounter [facility] Date(s): 11/01/22 - 12/01/22 [facility] Adult [address] [place] [address]- Allergies, Adverse Reactions, Alerts Substance Reaction Severity [...] Adult (oldterm) 08/25/04 G cristy 1Result Comment: [facility]# [id number] 2Result Comment: [10/28/2016] pharmacy 3Admin Note: given [...] 10/14/22 8:03:00 EST, Route to Pharmacy Electronically, [facility], 162.56, cm, 07/04/22 8:33:00 EDT, Height Start Date: 10/14/22 Status: Ordered All Day Allergy 10 mg oral tablet See Instructions, TAKE 1 TABLET (10 MG) BY MOUTH DAILY IN THE AM FOR SEASONAL ALLERGIES FROM DECEMBER THROUGH JUNE (START 12/24 / END 07/25) SEE ANCILLARY ORDERS, # 30 tablet, 2 Refills, Maintenance, 07/22/22 15:15:00 EDT, [facility], 162.56, cm, 1... Start Date: 07/22/22 Status: Ordered amLODIPine 10 mg oral tablet See Instructions, TAKE 1 TABLET (10 MG) BY MOUTH DAILY IN AM FOR HYPERTENSION, # 30 tablet, 5 Refills, 09/29/22 11:37:00 EST, [facility], 162.56, cm, 07/04/22 8:33:00 EDT, Height Start Date: 09/29/22 Status: Ordered ANTACID 500 MG CHEWABLE TAB ANTACID 500 MG CHEWABLE TAB, See Instructions, # 90 each, Refills 3, Tot. Refills 3, Maintenance, TAKE 1 TABLET PO TID FOR OSTEOPOROSIS. MAY CRUSH TABLET PER DR CRANE FX [phone], 07/20/18 12:11:49EDT, Compound Start Date: 07/20/18 Status: Ordered benzonatate 100 mg oral capsule 1 capsule, By Mouth, 3 times a day, PRN NEEDED FOR COUGH / IF NO IMPROVEMENT IN 3 DAYS NOTIFY MD/ IC, JAGRUTI, # 21 capsule, 0 Refills, [facility], 162.56, cm, 12/06/21 13:34:00 EDT, Height Start Date: 02/25/22 Status: Ordered bisacodyl 10 mg rectal suppository See Instructions, INSERT 1 SUPP (10MG) INTO RECTUM NEEDED IF MILK OF MAGNESIA INEFFECTIVE AFTER 8 HRS/BISAC- EVAC EQUIVALENT/ IF SUPPOSITORY INEFFECTIVE AFTER 4 HRS CALL MD, # 7 supp, 11 Refills, Acute, [facility], 162.56, cm, 02/25/21 9:29:00... Start Date: 04/15/21 Status: Ordered Blood Pressure Monitor See Instructions, 1, 0, 0, 06/11/07 11:11:37, PRN, HTN, ADS OPPTHS, [facility] [id number] [place] [address] Start Date: 06/11/07 Status: Ordered calcium carbonate [...] mL, 11 Refills, Maintenance, 08/21/22 7:49:00 EST, [facility], 30, INSTILL 4 DROPS INTO EACH [...] capsule, 5 Refills, Maintenance, 10/20/22 6:09:00 EST, [facility], 162.56, cm, 07/04/22 8:33:00 EDT, Height Start Date: 10/20/22 Status: Ordered EARWAX TREATMENT DROPS 6.5% EARWAX TREATMENT DROPS 6.5%, See Instructions, # 1 each, Refills 11, Tot. Refills 11, Maintenance, USE DIRECTED FAX [phone], 12/02/20 14:40:00 EST, [facility];, [facility], 162.56, cm, 02/24/20 9:30:00 EDT, Height Start Date: 12/02/20 Status: Ordered fluoride 1.1% topical gel See Instructions, USE 1/4 INCH OF GEL TO BRUSH TEETH DAILY IN THE EVENING / BRUSH THOROUGHLY ALONG GUMLINE IC: DENTAGEL, # 56 Gm, 11 Refills, [facility], 30, USE 1/4 INCH OF GEL TO BRUSH TEETH DAILY IN THE EVENING / BRUSH THOROUGHLY ALONG GUMLINE... Start Date: 01/28/22 Status: Ordered Carolyn-jag 8.6 mg oral tablet 1 tablet, By Mouth, Daily in PM, FOR CONSTIPATION / SEE MILK OF MAG ORDERS / IC: SENNA 8.6 MG, # 15tablet, 6 Refills, Maintenance, 10/14/22 8:03:00 EST, [facility], 162.56, cm, 07/04/22 8:33:00EDT, Height Start [...] 30ML=2,400MG, # 300 mL, 5 Refills, Acute, [facility], 162.56, cm, 02/24/20 9:30:00 EDT, Height Start Date: 10/30/20 Status: Ordered MILLITRIUM TABLET See Instructions, 30, 11, 11, 06/20/08 13:07:29, TAKE 1 TABLET BY MOUTH DAILY (VITAMIN), [facility] [address] [place] [address], Constant Indicator, MILLITRIUM TABLET Start Date: 06/20/08 [...] prn nasal dryness PER DAWIT STOREY RN FIRST ASSIST-C FAX [phone], 11/02/18 14:15:30 EST, Compound Start Date: 11/02/18 Status: Ordered Ocuflox 0.3% solution 2 drops, Eyes, Both, 4 times a day, # 10 mL, 0 Refills, Maintenance, 01/10/17 14:21:09, Ophth Solution, 2 drops Eyes, Both 4 times a day Start Date: 01/10/17 Status: Ordered Polysporin 500 u-97656 u/gm ointment See Instructions, APPLY A THIN LAYER TOPICALLY TWICE DAILY NEEDED TO RED, IRRITATED SKIN X 7 DAYS / SEE ANCILLARY ORDERS (BACITRACIN-POLYMYXIN OINTMENT), # 28.3 Gm, 5 Refills, Maintenance, 04/14/21 14:39:00 EDT, [facility], 7, APPLY A THIN LAY... Start Date: 04/14/21 Status: Ordered pravastatin 40 mg oral tablet See Instructions, TAKE 1 TABLET (40 MG) BY MOUTH DAILY IN PM FOR HYPERLIPIDEMIA, # 30 tablet, 5 Refills, Maintenance, 08/21/22 14:03:00 EST, [facility], 162.56, cm, 07/04/22 8:33:00 EDT, Height [...] (SUPHEDRIN EQUIVALENT), # 30 tablet, 11 Refills, [facility], 162.56, cm, 03/24/22 10:31:00 EDT, Height Start Date: 04/22/22 Status: Ordered SUDOGEST 30 MG TABLETS SUDOGEST 30 MG TABLETS, See Instructions, # 30 each, Refills 11, Tot. Refills 11, Maintenance, TAKE30 MG Q6H PRN PER DR CRANE FAX [phone], 02/01/19 9:46:36 EDT, Compound Start Date: 02/01/19 Status: Ordered THERA CAPLETS THERA CAPLETS, See Instructions, # 30 each, Refills 5, Tot. Refills 5, Maintenance, TAKE ONE CAPLETBY MOUTH QD PER DR CRANE FAX [phone], 10/08/20 11:48:00 EST, [facility], 162.56, cm, 02/24/20 9:30:00 EDT, Height Start Date: 10/08/20 Status: Ordered Thera oral tablet See Instructions, TAKE 1 TABLET BY MOUTH DAILY IN THE AM (VITAMIN), # 30 tablet, 5 Refills, Maintenance, 08/25/22 14:03:00 EST, [facility], 30, TAKE 1 TABLET BY MOUTH [...] mL, 1 Refills, Maintenance, 12/01/20 8:15:00 EST, [place], [facility], 1 sprays Topically 2 times a day, 162.56, cm, 02/24/20 9:30:00 EDT, Height Start Date: 12/01/20 Status: Ordered KAILYNIN KUSHAL FATIMA, See Instructions, # 420 mL, Refills 1, Tot. Refills 1, Maintenance, 10 ML PO Q4H PRN FORCOUGH AT BEDTIME PER DR CRANE FAX [phone], 05/22/20 8:48:00 EDT, [facility], 162.56, cm, 02/24/20 [...] Confirmed Active Vitamin D deficiency Confirmed Active 65128; repeat 2020 2colo 2006 nl, repeat 2015 3Colonoscopy 2016 positive polyp, repeat 2020. 4colo 2015 Social History Social History Type Response Smoking Status Never smoker entered on: 02/01/16 Sex Patient Care team information Care Team Personnel Name: Bisi HUSTON, Schuyler Pope Position: S Primary Care Physician Member Role: PCP Address: Address: [address] [place] [address]- Care Team Related Persons Name: ELLE ALMEIDA Address: home [address] [place] [address] Name: ZAK SHELL
--- OUTSIDE RECORDS SUMMARY | 2024-04-02 09:45 | XMS_ITS | Continuity of Care Document ---
[facility] Address [address] [place] [address]- Care Team Providers Care Suede Cleaner Name Role Phone Schuyler Crane MD Primary Care Physician [phone] Encounter [facility] Date(s): 10/25/21 - 11/24/21 [facility] Adult [address] [place] [address]- Allergies, Adverse Reactions, Alerts Substance Reaction Severity [...] Replace Required Details, Route to Pharmacy Electronically, [facility], 162.56, cm, 02/25/21 9:29:00 EDT, He... Start Date: 08/31/21 Status: Ordered amLODIPine 10 mg oral tablet See Instructions, TAKE 1 TABLET (10 MG) BY MOUTH DAILY IN AM FOR HYPERTENSION, # 30 tablet, 5 Refills, [facility], 162.56, cm, 02/25/21 9:29:00 EDT, Height Start Date: 09/30/21 Status: Ordered ANTACID 500 MG CHEWABLE TAB ANTACID 500 MG CHEWABLE TAB, See Instructions, # 90 each, Refills 3, Tot. Refills 3, Maintenance, TAKE 1 TABLET PO TID FOR OSTEOPOROSIS. MAY CRUSH TABLET PER DR ROSA MARIA CRUZ [phone], 07/20/18 12:11:49EDT, Compound Start Date: 07/20/18 Status: Ordered bisacodyl 10 mg rectal suppository See Instructions, INSERT 1 SUPP (10MG) INTO RECTUM NEEDED IF MILK OF MAGNESIA INEFFECTIVE AFTER 8 HRS/BISAC- EVAC EQUIVALENT/ IF SUPPOSITORY INEFFECTIVE AFTER 4 HRS CALL MD, # 7 supp, 11 Refills, Acute, [facility], 162.56, cm, 02/25/21 9:29:00... Start Date: 04/15/21 Status: Ordered Blood Pressure Monitor See Instructions, 1, 0, 0, 06/11/07 11:11:37, PRN, HTN, ADS OPPTHS, [facility] [id number] [place] [address] Start Date: 06/11/07 Status: Ordered calcium carbonate 500 mg (200 mg elemental calcium) oral tablet, chewable 500 mg, 1, tablet, By Mouth, 3 times a day, PER DR CRANE, # 90 tablet, Refills 5, Tot. Refills 5, Maintenance, 09/29/21 14:35:00 EST, Route to Pharmacy Electronically, [facility], 162.56, cm, 02/25/21 9:29:00 EDT, Height Start Date: 09/29/21 Stop Date: 03/28/22 Status: Ordered cetirizine 10 mg oral tablet See Instructions, TAKE 1 TABLET (10 MG) BY MOUTH DAILY IN THE AM FOR SEASONAL ALLERGIES FROM DECEMBER THROUGH JUNE (START 12/24) SEE ANCILLARY ORDERS, # 30 tablet, 5 Refills, Maintenance, [facility], 162.56, cm, 02/25/21 9:29:00 EDT, He... Start Date: 02/25/21 Status: Ordered cetirizine 10 mg oral tablet 1 tablet, By Mouth, Daily in AM, FOR SEASONAL ALLERGIES FROM DECEMBER THROUGH JUNE (START 12/24) SEE ANCILLARY ORDERS., # 30 tablet, 5 Refills, Maintenance, 02/25/21 13:04:00 EDT, [facility], 162.56, cm, 02/25/21 9:29:00 EDT, Height [...] Gm, 11 Refills, Maintenance, 08/07/20 11:11:00 EST, [facility], 30, USE 1/4 INCH OF GEL TO BRUSH TEETH DAILY IN THE EVENING / BRUSH T... Start Date: 08/07/20 Status: Ordered docusate sodium 100 mg oral capsule See Instructions, TAKE 1 CAPSULE (100 MG) BY MOUTH TWICE DAILY FOR CONSTIPATION (DOCUSATE SODIUM 100 MG), # 60 capsule, 5 Refills, [facility], 162.56, cm, 02/25/21 9:29:00 EDT, Height Start Date: 07/23/21 Status: Ordered EARWAX TREATMENT DROPS 6.5% EARWAX TREATMENT DROPS 6.5%, See Instructions, # 1 each, Refills 11, Tot. Refills 11, Maintenance, USE DIRECTED FAX [phone], 12/02/20 14:40:00 EST, [facility], 162.56, cm, [...] 30ML=2,400MG, # 300 mL, 5 Refills, Acute, [facility], 162.56, cm, 02/24/20 9:30:00 EDT, Height Start Date: 10/30/20 Status: Ordered MILLITRIUM TABLET See Instructions, 30, 11, 11, 06/20/08 13:07:29, TAKE 1 TABLET BY MOUTH DAILY (VITAMIN), [facility] [address] [place] [address], Constant Indicator, MILLITRIUM TABLET Start Date: 06/20/08 [...] bid prn nasal dryness PER DAWIT STOREY MOBILE PHONE SALESPERSON-C FAX [phone], 11/02/18 14:15:30 EST, Compound Start Date: 11/02/18 Status: Ordered Ocuflox 0.3% solution 2 drops, Eyes, Both, 4 times a day, # 10 mL, 0 Refills, Maintenance, 01/10/17 14:21:09, Ophth Solution, 2 drops Eyes, Both 4 times a day Start Date: 01/10/17 Status: Ordered Polysporin 500 u-58467 u/gm ointment See Instructions, APPLY A THIN LAYER TOPICALLY TWICE DAILY NEEDED TO RED, IRRITATED SKIN X 7 DAYS / SEE ANCILLARY ORDERS (BACITRACIN-POLYMYXIN OINTMENT), # 28.3 Gm, 5 Refills, Maintenance, 04/14/21 14:39:00 EDT, [facility], 7, APPLY A THIN LAY... Start Date: 04/14/21 Status: Ordered pravastatin 40 mg oral tablet 1 tablet, By Mouth, Daily, IN PM FOR HYPERLIPIDEMIA., # 30 tablet, 5 Refills, Maintenance, 09/03/2112:22:00 EST, [facility], 162.56, cm, 02/25/21 9:29:00 EDT, Height [...] MG Q6H PRN PER DR CRANE FAX [phone], 02/01/19 9:46:36 EDT, Compound Start Date: 02/01/19 Status: Ordered Suphedrin 30 mg oral tablet See Instructions, TAKE 1 TAB (30 MG) BY MOUTH EVERY 6 HRS NEEDED FOR NASAL CONGESTION/ SEE ANCILLARY ORDERS (SUDOGEST EQUIVALENT), # 30 tablet, 11 Refills, Acute, [facility], 162.56, cm, 02/24/20 9:30:00 EDT, Height Start Date: 05/22/20 Status: Ordered THERA CAPLETS THERA CAPLETS, See Instructions, # 30 each, Refills 5, Tot. Refills 5, Maintenance, TAKE ONE CAPLETBY MOUTH QD PER DR CRANE FAX [phone], 10/08/20 11:48:00 EST, [facility], 162.56, cm, 02/24/20 9:30:00 EDT, Height Start Date: 10/08/20 Status: Ordered Thera oral tablet 1 tablet, By Mouth, Daily in AM, VITAMIN., # 30 tablet, 5 Refills, Maintenance, 08/27/21 13:53:00 EST, [facility], 30, 1 tablet By Mouth Daily [...] mL, 1 Refills, Maintenance, 12/01/20 8:15:00 EST, [place], 1 sprays Topically 2 times a day, 162.56, cm, 02/24/20 9:30:00 EDT, Height Start Date: 12/01/20 Status: Ordered TUSSIN KUSHAL [place] KUSHAL, See Instructions, # 420 mL, Refills 1, Tot. Refills 1, Maintenance, 10 ML PO Q4H PRN FORCOUGH AT BEDTIME PER DR CRANE FAX [phone], 05/22/20 8:48:00 EDT, [facility], 162.56, cm, 02/24/20 [...] Active Underweight(Confirmed) Active Vitamin D deficiency(Confirmed) Active 54601; repeat 2020 2colo 2005 nl, repeat 2015 3Colonoscopy 2016 positive polyp, repeat 2020. 4colo 2015 Social History Social History Type Response Smoking Status Never smoker entered on: 02/01/16 Sex
--- OUTSIDE RECORDS SUMMARY | 2024-04-02 09:45 | XMS_ITS | Continuity of Care Document ---
Author Organization [facility] Salvatore Todd lt Address [address] [place] [address]- Care Team Providers Care Enterprise Account Manager Name Role Phone Schuyler Crane MD Primary Care Physician [facility] Date(s): 07/04/22 - 08/03/22 [facility] Adult [address] [place] [address]- Attending Physician: Admtr, Ar8 Allergies, Adverse Reactions, [...] Given Tetanus-Diphth Toxoids, Adult (oldterm) 08/25/04 Vishal dorseylea 1Result Comment: [facility]# [id number] 2Result Comment: [10/28/2016] pharmacy 3Admin Note: given [...] Replace Required Details, Route to Pharmacy Electronically, [facility], 162.56, cm, 02/25/21 9:29:00 EDT, He... Start Date: 08/31/21 Status: Ordered All Day Allergy 10 mg oral tablet See Instructions, TAKE 1 TABLET (10 MG) BY MOUTH DAILY IN THE AM FOR SEASONAL ALLERGIES FROM DECEMBER THROUGH JUNE (START 12/24 / END 07/25) SEE ANCILLARY ORDERS, # 30 tablet, 2 Refills, Maintenance, 07/22/22 15:15:00 EDT, [facility], 162.56, cm, 1... Start Date: 07/22/22 Status: Ordered amLODIPine 10 mg oral tablet See Instructions, TAKE 1 TABLET (10 MG) BY MOUTH DAILY IN AM FOR HYPERTENSION, # 30 tablet, 5 Refills, [facility], 162.56, cm, 03/24/22 10:31:00 EDT, Height Start Date: 04/01/22 Status: Ordered ANTACID 500 MG CHEWABLE TAB ANTACID 500 MG CHEWABLE TAB, See Instructions, # 90 each, Refills 3, Tot. Refills 3, Maintenance, TAKE 1 TABLET PO TID FOR OSTEOPOROSIS. MAY CRUSH TABLET PER DR CRANE FX [phone], 07/20/18 12:11:49EDT, Compound Start Date: 07/20/18 Status: Ordered benzonatate 100 mg oral capsule 1 capsule, By Mouth, 3 times a day, PRN NEEDED FOR COUGH / IF NO IMPROVEMENT IN 3 DAYS NOTIFY MD/ IC, JAGRUTI, # 21 capsule, 0 Refills, [facility], 162.56, cm, 12/06/21 13:34:00 EDT, Height Start Date: 02/25/22 Status: Ordered bisacodyl 10 mg rectal suppository See Instructions, INSERT 1 SUPP (10MG) INTO RECTUM NEEDED IF MILK OF MAGNESIA INEFFECTIVE AFTER 8 HRS/BISAC- EVAC EQUIVALENT/ IF SUPPOSITORY INEFFECTIVE AFTER 4 HRS CALL MD, # 7 supp, 11 Refills, Acute, [facility], 162.56, cm, 02/25/21 9:29:00... Start Date: 04/15/21 Status: Ordered Blood Pressure Monitor See Instructions, 1, 0, 0, 06/11/07 11:11:37, PRN, HTN, ADS OPPTHS, [facility] [id number] [place] [address] Start Date: 06/11/07 Status: Ordered calcium carbonate 500 mg (200 mg elemental calcium) oral tablet, chewable See Instructions, TAKE 1 TABLET (500 MG) BY MOUTH 3 TIMES A DAY FOR OSTEOPOROSIS MAY CRUSH TABLET IC: CALCIUM CARBONATE, # 90 tablet, Refills 5, Instructions Replace Required Details, Route to Pharmacy Electronically, [facility], 162.56, cm, 11/23... Start Date: 02/25/22 [...] capsule, 2 Refills, Maintenance, 07/22/22 15:15:00 EDT, [facility], 162.56, cm, 07/04/22 8:33:00 EDT, Height Start Date: 07/22/22 Status: Ordered EARWAX TREATMENT DROPS 6.5% EARWAX TREATMENT DROPS 6.5%, See Instructions, # 1 each, Refills 11, Tot. Refills 11, Maintenance, USE DIRECTED FAX [phone], 12/02/20 14:40:00 EST, [facility];, [facility], 162.56, cm, [...] 30ML=2,400MG, # 300 mL, 5 Refills, Acute, [facility], 162.56, cm, 02/24/20 9:30:00 EDT, Height Start Date: 10/30/20 Status: Ordered MILLITRIUM TABLET See Instructions, 30, 11, 11, 06/20/08 13:07:29, TAKE 1 TABLET BY MOUTH DAILY (VITAMIN), [facility] [address] [place] [address], Constant Indicator, MILLITRIUM TABLET Start Date: 06/20/08 [...] bid prn nasal dryness PER DAWIT STORE[employer] ENVIRONMENTAL REMEDIATION CONSULTANT-C FAX [phone], 11/02/18 14:15:30 EST, Compound Start Date: 11/02/18 Status: Ordered Ocuflox 0.3% solution 2 drops, Eyes, Both, 4 times a day, # 10 mL, 0 Refills, Maintenance, 01/10/17 14:21:09, Ophth Solution, 2 drops Eyes, Both 4 times a day Start Date: 01/10/17 Status: Ordered Polysporin 500 u-25899 u/gm ointment See Instructions, APPLY A THIN LAYER TOPICALLY TWICE DAILY NEEDED TO RED, IRRITATED SKIN X 7 DAYS / SEE ANCILLARY ORDERS (BACITRACIN-POLYMYXIN OINTMENT), # 28.3 Gm, 5 Refills, Maintenance, 04/14/21 14:39:00 EDT, [facility], 7, APPLY A THIN LAY... Start Date: 04/14/21 Status: Ordered pravastatin 40 mg oral tablet 1 tablet, By Mouth, Daily, IN PM FOR HYPERLIPIDEMIA., # 30 tablet, 5 Refills, [facility], 162.56, cm, 12/06/21 13:34:00 EDT, Height [...] (SUPHEDRIN EQUIVALENT), # 30 tablet, 11 Refills, [facility], 162.56, cm, 03/24/22 10:31:00 EDT, Height Start Date: 04/22/22 Status: Ordered SUDOGEST 30 MG TABLETS SUDOGEST 30 MG TABLETS, See Instructions, # 30 each, Refills 11, Tot. Refills 11, Maintenance, TAKE30 MG Q6H PRN PER DR CRANE FAX [phone], 02/01/19 9:46:36 EDT, Compound Start Date: 02/01/19 Status: Ordered THERA CAPLETS THERA CAPLETS, See Instructions, # 30 each, Refills 5, Tot. Refills 5, Maintenance, TAKE ONE CAPLETBY MOUTH QD PER DR CRANE FAX [phone], 10/08/20 11:48:00 EST, [facility], 162.56, cm, 02/24/20 9:30:00 EDT, Height Start Date: 10/08/20 Status: Ordered Thera oral tablet See Instructions, TAKE 1 TABLET BY MOUTH DAILY IN THE AM (VITAMIN), # 30 tablet, 5 Refills, [facility], 30, TAKE 1 TABLET BY MOUTH [...] mL, 1 Refills, Maintenance, 12/01/20 8:15:00 EST, [place], 1 sprays Topically 2 times a day, 162.56, cm, 02/24/20 9:30:00 EDT, Height Start Date: 12/01/20 Status: Ordered KAILYNIN KUSHAL FATIMA, See Instructions, # 420 mL, Refills 1, Tot. Refills 1, Maintenance, 10 ML PO Q4H PRN FORCOUGH AT BEDTIME PER DR CRANE FAX [phone], 05/22/20 8:48:00 EDT, Compound, 162.56, cm, 02/24/20 [...] Confirmed Active Vitamin D deficiency Confirmed Active 38990; repeat 2020 2colo 2006 nl, repeat 2015 3Colonoscopy 2016 positive polyp, repeat 2020. 4colo 2015 Procedures Procedure Date Related Diagnosis Body Site Status Colonoscopy 1 12/30/15 Completed 1repeat 2020 Vital Signs Most recent to oldest [Reference Range]: 1 Dry Weight 53 kg (02/04/15 8:06 AM) Social History Social History Type Response Smoking Status Never smoker entered on: 02/01/16 Sex Note * Lesli Mejia: PERFORM Event Display: Laboratory Results Scanned Authored Date: [id number] * Gely Spain: PERFORM Event Display: Cardiovascular Results Scanned Authored Date: [id number] * Gely Spain: PERFORM Event Display: Cardiovascular Results Scanned Authored Date: * FinesseRody: PERFORM Event Display: Radiology Results Scanned Authored Date: [id number] * Gely Spain: PERFORM Event Display: Radiology Results Scanned Authored Date: * Gely Spain: PERFORM Event Display: Laboratory Results Scanned Authored Date: [id number] * Anay Wang: PERFORM Event Display: Radiology Results Scanned Authored Date: * Joann Bergeron: PERFORM Event Display: Laboratory Results Scanned Authored Date: [id number] Patient Care team information Care Team Personnel Name: Bisi HUSTON, Schuyler Pope Position: [facility] Primary Care Physician Member Role: PCP Address: Address: [address] [place] [address]- Care Team Related Persons Name: ELLE ALMEIDA Address: home [address] [place] [address] Name: ZAK SHELL
--- OUTSIDE RECORDS SUMMARY | 2024-04-02 09:45 | XMS_ITS | Continuity of Care Document ---
Author Organization [facility] Todd lt Address [address] [place] [address]- Care Team Providers Care Test Designer Name Role Phone Schuyler Crane MD Primary Care Physician [facility] Date(s): 05/21/20 - 06/20/20 [facility] [address] [place] [address]- [facility] Allergies, Adverse Reactions, Alerts Substance Reaction [...] 5 Refills, Soft Stop, 04/03/20 16:18:00 EDT, [facility], 162.56, cm, 02/24/20 9:30:00 EDT, Height Start Date: 04/03/20 Status: Ordered amLODIPine 10 mg oral tablet 10 mg, 1, tablet, By Mouth, Daily, # 90 tablet, Refills 1, Tot. Refills 1, Soft Stop, 04/09/20 13:02:00 EDT, Route to Pharmacy Electronically, [facility], 162.56, cm, 02/24/20 9:30:00 EDT, Height Start Date: 04/09/20 Status: Ordered ANTACID 500 MG CHEWABLE TAB ANTACID 500 MG CHEWABLE TAB, See Instructions, # 90 each, Refills 3, Tot. Refills 3, Maintenance, TAKE 1 TABLET PO TID FOR OSTEOPOROSIS. MAY CRUSH TABLET PER DR CRANE FX [phone], 07/20/18 12:11:49EDT, Compound Start Date: 07/20/18 Status: Ordered Bisco-Lax 10 mg rectal suppository See Instructions, INSERT 1 SUPP (10MG) INTO RECTUM NEEDED IF MILK OF MAGNESIA INEFFECTIVE AFTER 8 HRS/BISAC- EVAC EQUIVALENT/ IF SUPPOSITORY INEFFECTIVE AF, # 7 supp, 11 Refills, Acute, [facility], 162.56, cm, 02/24/20 9:30:00 EDT, Height Start Date: 03/30/20 Status: Ordered Blood Pressure Monitor See Instructions, 1, 0, 0, 06/11/07 11:11:37, PRN, HTN, ADS OPPTHS, [facility] [id number] [place] [address] Start Date: 06/11/07 Status: Ordered calcium carbonate 500 mg (200 mg elemental calcium) oral tablet, chewable 500 mg, 1, tablet, By Mouth, 3 times a day, PER DR CRANE, # 90 tablet, Refills 11, Tot. Refills 11, Maintenance, 12/09/19 14:35:00 EDT, Route to Pharmacy Electronically, [facility], 162.56, cm, 02/12/19 10:36:00 EDT, Height [...] 02/06/20 12:14:00 EDT, Route to Pharmacy Electronically, [facility], 162.56, cm, 02/12/19 10:36:00 EDT, Height [...] Tot. Refills 11, Maintenance, USE DIRECTED FAX [phone], 10/01/19 11:14:00 EST, [facility];, Compound Start Date: [...] (VITAMIN), [facility] [address] [place] [address], Constant Indicator, MILLITRIUM TABLET Start Date: 06/20/08 [...] bid prn nasal dryness PER DAWIT STOREY DRY WALL INSTALLER-C FAX [phone], 11/02/18 14:15:30 EST, Compound Start Date: 11/02/18 Status: Ordered Ocuflox 0.3% solution 2 drops, Eyes, Both, 4 times a day, # 10 mL, 0 Refills, Maintenance, 01/10/17 14:21:09, Ophth Solution, 2 drops Eyes, Both 4 times a day Start Date: 01/10/17 Status: Ordered Polysporin 500 u-32660 u/gm ointment See Instructions, APPLY A THIN LAYER TOPICALLY TWICE DAILY NEEDED TO RED, IRRITATED SKIN X 7 DAYS / SEE ANCILLARY ORDERS (BACITRACIN-POLYMYXIN OINTMENT), # 28.3 Gm, 5 Refills, Acute, [facility], 7, APPLY A THIN LAYER TOPICALLY TWICE DAILY N... Start Date: 03/30/20 Status: Ordered Polysporin 500 u-71419 u/gm ointment See Instructions, APPLY A THIN [...] MG Q6H PRN PER DR CRANE FAX [phone], 02/01/19 9:46:36 EDT, Compound Start Date: 02/01/19 Status: Ordered Suphedrin 30 mg oral tablet See Instructions, TAKE 1 TAB (30 MG) BY MOUTH EVERY 6 HRS NEEDED FOR NASAL CONGESTION/ SEE ANCILLARY ORDERS (SUDOGEST EQUIVALENT), # 30 tablet, 11 Refills, Acute, [facility], 162.56, cm, 02/24/20 9:30:00 EDT, Height Start Date: 05/22/20 Status: Ordered THERA CAPLETS THERA CAPLETS, See Instructions, # 30 each, Refills 5, Tot. Refills 5, Maintenance, TAKE ONE CAPLETBY MOUTH QD PER DR ROSA MARIA HUGHESX [phone], 03/12/20 12:59:00 EDT, [facility], 162.56, cm, 02/24/20 9:30:00 EDT, Height Start Date: 03/12/20 Status: Ordered Tinactin 1% spray 1 sprays, Topically, 2 times a day, # 120 mL, 1 Refills, Maintenance, 11/01/19 10:28:00 EST, [place], 1 sprays Topically 2 times a day, 162.56, cm, 02/12/19 10:36:00 EDT, Height Start Date: 11/01/19 Status: Ordered TUSSIN KUSHAL FATIMA, See Instructions, # 420 mL, Refills 1, Tot. Refills 1, Maintenance, 10 ML PO Q4H PRN FORCOUGH AT BEDTIME PER DR CRANE FAX [phone], 05/22/20 8:48:00 EDT, [facility], 162.56, cm, 02/24/20 9:30:00 EDT, Height Start Date: 05/22/20 Status: Ordered Tylenol 325 mg oral tablet 650 mg, 2, tablet, By Mouth, Every 4 hours, PER DR CRANE, # 168 tablet, Refills 5, Tot. Refills 5, Maintenance, 10/04/19 10:27:00 EST, Route to Pharmacy Electronically, [facility], 162.56, cm, 02/12/19 10:36:00 EDT, Height [...] Active Underweight(Confirmed) Active Vitamin D deficiency(Confirmed) Active 32304; repeat 2020 2colo 2005 nl, repeat 2015 3Colonoscopy 2016 positive polyp, repeat 2020. 4colo 2015 Social History Social History Type Response Smoking Status Never smoker entered on: 02/01/16 Sex
--- OUTSIDE RECORDS SUMMARY | 2024-04-02 09:45 | XMS_ITS | Continuity of Care Document ---
Author Organization [facility] Address [address] [place] [address]- Care Team Providers Care Industrial Insulator Name Role Phone Schuyler Crane MD Primary Care Physician [phone] Encounter [facility] [id number] Date(s): 02/08/24 - 03/09/24 [facility] [address] [place] [address]- Attending Physician: Teresa Jama MD Referring Physician: [...] 13-valent vaccine 02/25/21 Given zoster vaccine, inactivated 8/1/18 Recorded zoster vaccine, inactivated 02/23/18 Recorded Zostavax (oldterm) 02/07/16 Given tetanus/diphtheria/pertussis, acel(Tdap) 01/09/13 Given Fluarix (oldterm) 07/11/11 Given Influenza Inactive (IM) (oldterm) 5 07/11/08 Given Influenza Inactive (IM) (oldterm) 07/27/07 Given Pneumococcal Vaccine (oldterm) 11/13/07 Given Tetanus-Diphth Toxoids, Adult (oldterm) 08/25/04 G sunitaen 1Result Comment: Td - [facility]# [id number] 2Result Comment: PCV23 - [facility]# [id number] 3Result Comment: [facility]# [id number] 4Result Comment: [10/28/2016] pharmacy 5Admin Note: given [...] 10/14/22 8:03:00 EST, Route to Pharmacy Electronically, [facility], 162.56, cm, 07/04/22 8:33:00 EDT, Height Start Date: 10/14/22 Status: Ordered acetaminophen 325 mg oral tablet 2, tablet, By Mouth, 2 times a day, PRN, # 20 tablet, Refills 0, Tot. Refills 0, Maintenance, NEEDED, 12/12/23 11:09:00 EDT, Route to Pharmacy Electronically, [facility], 162.56, cm, 12/11/2409:47:00 EDT, Height Start Date: 12/12/23 Stop Date: 12/17/23 Status: Ordered All Day Allergy 10 mg oral tablet 1 tablet, By Mouth, Daily in AM, FOR SEASONAL ALLERGIES FROM DECEMBER THROUGH JUNE (START 12/24 / END07/25) SEE ANCILLARY ORDERS., # 30 tablet, 11 Refills, Maintenance, 12/21/23 7:45:00 EDT, [facility], 162.56, cm, 12/12/23 10:47:00 EDT, Height Start Date: 12/21/23 Status: Ordered amLODIPine 10 mg oral tablet 1 tablet, By Mouth, Daily in AM, FOR HYPERTENSION., # 30 tablet, 5 Refills, Maintenance, 10/25/23 0:22:00 EST, [facility], 162.56, cm, 10/03/23 9:00:00 EST, Height Start Date: 10/25/23 Status: Ordered ANTACID 500 MG CHEWABLE TAB ANTACID 500 MG CHEWABLE TAB, See Instructions, # 90 each, Refills 3, Tot. Refills 3, Maintenance, TAKE 1 TABLET PO TID FOR OSTEOPOROSIS. MAY CRUSH TABLET PER DR ROSA MARIA CRUZ [phone], 07/20/18 12:11:49EDT, Compound Start Date: 07/20/18 Status: Ordered benzonatate 100 mg oral capsule 1 capsule, By Mouth, 3 times a day, PRN NEEDED FOR COUGH / IF NO IMPROVEMENT IN 3 DAYS NOTIFY MD/ IC, JAGRUTI, # 21 capsule, 0 Refills, Maintenance, 10/05/23 12:01:00 EST, [facility], 162.56, cm, 10/03/23 9:00:00 EST, Height Start Date: 10/05/23 Status: Ordered bisacodyl 10 mg rectal suppository See Instructions, INSERT 1 SUPP (10MG) INTO RECTUM NEEDED IF MILK OF MAGNESIA INEFFECTIVE AFTER 8 HRS/BISAC- EVAC EQUIVALENT/ IF SUPPOSITORY INEFFECTIVE AFTER 4 HRS CALL MD, # 7 supp, 11 Refills, Acute, [facility], 162.56, cm, 02/25/21 9:29:00... Start Date: 04/15/21 Status: Ordered Blood Pressure Monitor See Instructions, 1, 0, 0, 06/11/07 11:11:37, PRN, HTN, ADS OPPTHS, [facility] [id number] [place] [address] Start Date: 06/11/07 Status: Ordered calcium carbonate 500 mg (200 mg elemental calcium) oral tablet, chewable 1, tablet, By Mouth, 3 times a day, CRUSH. IC: CALCIUM CARBONATE, # 90 tablet, Refills 5, Maintenance, 10/02/23 8:50:00 EST, Route to Pharmacy Electronically, [facility], 162.56, cm, 09/19/23 10:28:00 EST, Height Start Date: 10/02/23 Status: Ordered carbamide peroxide 6.5% otic solution See Instructions, INSTILL 4 DROPS INTO EACH EAR TWICE DAILY FOR 5 DAYS EACH MONTH / IC: CARBAMIDE PEROXIDE (EAR DROPS 6.5%), # 15 mL, 11 Refills, Maintenance, 09/01/23 9:17:00 EST, [facility], 30, INSTILL 4 DROPS INTO EACH [...] capsule, 5 Refills, Maintenance, 11/23/23 20:00:00 EST, [facility], 162.56, cm, 10/03/23 9:00:00 EST, Height Start Date: 11/23/23 Status: Ordered EARWAX TREATMENT DROPS 6.5% EARWAX TREATMENT DROPS 6.5%, See Instructions, # 1 each, Refills 11, Tot. Refills 11, Maintenance, USE DIRECTED FAX [phone], 12/02/20 14:40:00 EST, [facility];, [facility], 162.56, cm, 02/24/20 9:30:00 EDT, Height Start Date: 12/02/20 Status: Ordered fluoride 1.1% topical gel See Instructions, USE 1/4 INCH OF GEL TO BRUSH TEETH DAILY IN THE EVENING / BRUSH THOROUGHLY ALONG GUMLINE IC: DENTAGEL, # 56 Gm, 11 Refills, Maintenance, 09/21/23 16:44:00 EST, [facility], 30, USE 1/4 INCH OF GEL TO BRUSH TEETH DAILY IN THE EVEN... Start Date: 09/21/23 Status: Ordered Carolyn-jag 8.6 mg oral tablet 1 tablet, By Mouth, Daily in PM, FOR CONSTIPATION / SEE MILK OF MAG ORDERS / IC: SENNA 8.6 MG, # 15tablet, 6 Refills, Maintenance, 10/14/22 8:03:00 EST, [facility], 162.56, cm, 07/04/22 8:33:00EDT, Height Start Date: 10/14/22 Status: Ordered Hospital Bed See Instructions, # 1 each, Refills 0, Tot. Refills 0, Maintenance, [facility] DX: Left hip fracture, seizure dis, impulse control disorder, atypical autism. Duration ongoing NPI#[id number] Height: 5'6 Weight: 137lbs, 03/22/23 13:55:... Start Date: 03/22/23 Status: Ordered ibuprofen 600 mg oral tablet 600 mg, 1, tablet, By Mouth, Every 8 hours, PRN for pain, # 30 tablet, Refills 0, Tot. Refills 0, Maintenance, 02/08/24 12:44:00 EDT, Route to Pharmacy Electronically, [facility], Partial fill upon patient request if the prescription is for a adeline... Start Date: 02/08/24 Status: Ordered Milk of Magnesia 8% oral suspension See Instructions, TAKE 2 TABLESPOONFULS (30 ML) BY MOUTH AT BEDTIME NEEDED FOR CONSTIPATION ON DAY 3 OF NO BM / SEE BISCOLAX SUPP ORDER 30ML=2,400MG, # 300 mL, 5 Refills, Acute, [facility], 162.56, cm, 02/24/20 9:30:00 EDT, Height Start Date: 10/30/20 Status: Ordered MILLITRIUM TABLET See Instructions, 30, 11, 11, 06/20/08 13:07:29, TAKE 1 TABLET BY MOUTH DAILY (VITAMIN), [facility] [address] [place] [address], Constant Indicator, MILLITRIUM TABLET Start Date: 06/20/08 [...] tablet, 0 Refills, Maintenance, 10/03/23 8:50:00 EST, [facility], Partial fill upon patient request if the prescription... Start Date: 10/03/23 Status: Ordered Polysporin 500 u-65194 u/gm ointment See Instructions, APPLY A THIN LAYER TOPICALLY TWICE DAILY NEEDED TO RED, IRRITATED SKIN X 7 DAYS / SEE ANCILLARY ORDERS (BACITRACIN-POLYMYXIN OINTMENT), # 28.3 Gm, 5 Refills, Maintenance, 04/18/23 8:59:00 EDT, [facility], 7, APPLY A THIN LAYE... Start Date: 04/18/23 Status: Ordered pravastatin 40 mg oral tablet 1 tablet, By Mouth, Daily, IN PM FOR HYPERLIPIDEMIA., # 30 tablet, 5 Refills, Maintenance, 248:50:00 EST, [facility], 162.56, cm, 09/19/23 10:28:00 EST, Height Start Date: 10/02/23 Status: Ordered Profola oral tablet 1 tablet, By Mouth, Daily, # 30 tablet, 11 Refills, Maintenance, 05/19/23 10:41:00 EDT, [facility], Partial fill upon patient request if [...] tablet, 11 Refills, Maintenance, 10/26/23 8:49:00 EST, [facility], 162.56, cm, 10/03/23 9:00:00 EST, Height Start Date: 10/26/23 Status: Ordered SUDOGEST 30 MG TABLETS SUDOGEST 30 MG TABLETS, See Instructions, # 30 each, Refills 11, Tot. Refills 11, Maintenance, TAKE30 MG Q6H PRN PER DR CRANE FAX [phone], 02/01/19 9:46:36 EDT, Compound Start Date: 02/01/19 Status: Ordered Thera oral tablet 1 tablet, By Mouth, Daily in AM, VITAMIN., # 30 tablet, 5 Refills, Maintenance, 10/25/23 10:03:00 EST, [facility], 30, TAKE 1 TABLET BY MOUTH [...] mL, 1 Refills, Maintenance, 12/01/20 8:15:00 EST, [place], [facility], 1 sprays Topically 2 times a day, 162.56, cm, 02/24/20 9:30:00 EDT, Height Start Date: 12/01/20 Status: Ordered KAILYNIN KUSHAL FATIMA, See Instructions, # 420 mL, Refills 1, Tot. Refills 1, Maintenance, 10 ML PO Q4H PRN FORCOUGH AT BEDTIME PER DR CRANE FAX [phone], 05/22/20 8:48:00 EDT, [facility], 162.56, cm, 02/24/20 [...] Confirmed Active Vitamin D deficiency Confirmed Active 67820; repeat 2020 2colo 2006 nl, repeat 2015 3Colonoscopy 2016 positive polyp, repeat 2020. 4colo 2015 Social History Social History Type Response Smoking Status Never smoker entered on: 02/01/16 Sex Patient Care team information Care Team Personnel Name: Schuyler Crane MD Position: [facility] Physician - Primary Care Member Role: PCP Address: Address: [address] [place] [address]- Care Team Related Persons Name: ELLE ALMEIDA Address: home [address] [place] [id number] Name: ZAK SHELL
--- OUTSIDE RECORDS SUMMARY | 2024-04-02 09:45 | XMS_ITS | Continuity of Care Document ---
Author Organization [facility] [place] Todd lt Address [address] [place] [address]- Care Team Providers Care Final Assembler Boat Name Role Phone Schuyler Crane MD Primary Care Physician [phone] [facility] Date[facility]): 10/03/23 - 11/02/23 [facility] [place] Adult [address] [place] [address]- Attending Physician: Admtr, Ar8 Allergies, Adverse Reactions, [...] 08/25/04 G iven 1Result Comment: Td - [facility]# [id number] 2Result Comment: PCV23 - [facility]# [id number] 3Result Comment: [facility]# [id number] 4Result Comment: [10/28/2016] pharmacy 5Admin Note: given [...] 10/14/22 8:03:00 EST, Route to Pharmacy Electronically, [facility], 162.56, cm, 07/04/22 8:33:00 EDT, Height Start Date: 10/14/22 Status: Ordered All Day Allergy 10 mg oral tablet See Instructions, TAKE 1 TABLET (10 MG) BY MOUTH DAILY IN THE AM FOR SEASONAL ALLERGIES FROM DECEMBER THROUGH JUNE (START 12/24 / END 07/25) SEE ANCILLARY ORDERS, # 30 tablet, 2 Refills, Maintenance, 04/13/23 14:33:00 EDT, [facility], 162.56, cm, 0... Start Date: 04/13/23 Status: Ordered amLODIPine 10 mg oral tablet 1 tablet, By Mouth, Daily in AM, FOR HYPERTENSION., # 30 tablet, 5 Refills, Maintenance, 10/25/23 0:22:00 EST, [facility], 162.56, cm, 10/03/23 9:00:00 EST, Height Start Date: 10/25/23 Status: Ordered ANTACID 500 MG CHEWABLE TAB ANTACID 500 MG CHEWABLE TAB, See Instructions, # 90 each, Refills 3, Tot. Refills 3, Maintenance, TAKE 1 TABLET PO TID FOR OSTEOPOROSIS. MAY CRUSH TABLET PER DR ROSA MARIA CRUZ [phone], 07/20/18 12:11:49EDT, Compound Start Date: 07/20/18 Status: Ordered benzonatate 100 mg oral capsule 1 capsule, By Mouth, 3 times a day, PRN NEEDED FOR COUGH / IF NO IMPROVEMENT IN 3 DAYS NOTIFY MD/ IC, JAGRUTI, # 21 capsule, 0 Refills, Maintenance, 10/05/23 12:01:00 EST, [facility], 162.56, cm, 10/03/23 9:00:00 EST, Height Start Date: 10/05/23 Status: Ordered bisacodyl 10 mg rectal suppository See Instructions, INSERT 1 SUPP (10MG) INTO RECTUM NEEDED IF MILK OF MAGNESIA INEFFECTIVE AFTER 8 HRS/BISAC- EVAC EQUIVALENT/ IF SUPPOSITORY INEFFECTIVE AFTER 4 HRS CALL MD, # 7 supp, 11 Refills, Acute, [facility], 162.56, cm, 02/25/21 9:29:00... Start Date: 04/15/21 Status: Ordered Blood Pressure Monitor See Instructions, 1, 0, 0, 06/11/07 11:11:37, PRN, HTN, ADS OPPTHS, [place] [address] Start Date: 06/11/07 Status: Ordered calcium carbonate 500 mg (200 mg elemental calcium) oral tablet, chewable 1, tablet, By Mouth, 3 times a day, CRUSH. IC: CALCIUM CARBONATE, # 90 tablet, Refills 5, Maintenance, 10/02/23 8:50:00 EST, Route to Pharmacy Electronically, [facility], 162.56, cm, 09/19/23 10:28:00 EST, Height Start Date: 10/02/23 Status: Ordered carbamide peroxide 6.5% otic solution See Instructions, INSTILL 4 DROPS INTO EACH EAR TWICE DAILY FOR 5 DAYS EACH MONTH / IC: CARBAMIDE PEROXIDE (EAR DROPS 6.5%), # 15 mL, 11 Refills, Maintenance, 09/01/23 9:17:00 EST, [facility], 30, INSTILL 4 DROPS INTO EACH [...] capsule, 5 Refills, Maintenance, 06/06/23 14:01:00 EDT, [facility], 162.56, cm, 05/15/23 9:41:00 EDT, Height Start Date: 06/06/23 Status: Ordered EARWAX TREATMENT DROPS 6.5% EARWAX TREATMENT DROPS 6.5%, See Instructions, # 1 each, Refills 11, Tot. Refills 11, Maintenance, USE DIRECTED FAX [phone], 12/02/20 14:40:00 EST, [facility], 162.56, cm, 02/24/20 9:30:00 EDT, Height Start Date: 12/02/20 Status: Ordered fluoride 1.1% topical gel See Instructions, USE 1/4 INCH OF GEL TO BRUSH TEETH DAILY IN THE EVENING / BRUSH THOROUGHLY ALONG GUMLINE IC: DENTAGEL, # 56 Gm, 11 Refills, Maintenance, 09/21/23 16:44:00 EST, [facility], 30, USE 1/4 INCH OF GEL TO BRUSH TEETH DAILY IN THE EVEN... Start Date: 09/21/23 Status: Ordered Carolyn-jag 8.6 mg oral tablet 1 tablet, By Mouth, Daily in PM, FOR CONSTIPATION / SEE MILK OF MAG ORDERS / IC: SENNA 8.6 MG, # 15tablet, 6 Refills, Maintenance, 10/14/22 8:03:00 EST, [facility], 162.56, cm, 07/04/22 8:33:00EDT, Height Start Date: 10/14/22 Status: Ordered Hospital Bed See Instructions, # 1 each, Refills 0, Tot. Refills 0, Maintenance, [facility] Bed DX: Left hip fracture, seizure dis, impulse control disorder, atypical autism. Duration ongoing NPI#[id number] Height: 5'6 Weight: 137lbs, 03/22/23 13:55:... Start Date: 03/22/23 Status: Ordered Milk of Magnesia 8% oral suspension See Instructions, TAKE 2 TABLESPOONFULS (30 ML) BY MOUTH AT BEDTIME NEEDED FOR CONSTIPATION ON DAY 3 OF NO BM / SEE BISCOLAX SUPP ORDER 30ML=2,400MG, # 300 mL, 5 Refills, Acute, [facility], 162.56, cm, 02/24/20 9:30:00 EDT, Height Start Date: 10/30/20 Status: Ordered MILLITRIUM TABLET See Instructions, 30, 11, 11, 06/20/08 13:07:29, TAKE 1 TABLET BY MOUTH DAILY (VITAMIN), [facility] [address] [place] [address], Constant Indicator, MILLITRIUM TABLET Start Date: 06/20/08 [...] tablet, 0 Refills, Maintenance, 10/03/23 8:50:00 EST, [facility], Partial fill upon patient request if the prescription... Start Date: 10/03/23 Status: Ordered Polysporin 500 u-29342 u/gm ointment See Instructions, APPLY A THIN LAYER TOPICALLY TWICE DAILY NEEDED TO RED, IRRITATED SKIN X 7 DAYS / SEE ANCILLARY ORDERS (BACITRACIN-POLYMYXIN OINTMENT), # 28.3 Gm, 5 Refills, Maintenance, 04/18/23 8:59:00 EDT, [facility], 7, APPLY A THIN LAYE... Start Date: 04/18/23 Status: Ordered pravastatin 40 mg oral tablet 1 tablet, By Mouth, Daily, IN PM FOR HYPERLIPIDEMIA., # 30 tablet, 5 Refills, Maintenance, 248:50:00 EST, [facility], 162.56, cm, 09/19/23 10:28:00 EST, Height Start Date: 10/02/23 Status: Ordered Profola oral tablet 1 tablet, By Mouth, Daily, # 30 tablet, 11 Refills, Maintenance, 05/19/23 10:41:00 EDT, [facility], Partial fill upon patient request if [...] tablet, 11 Refills, Maintenance, 10/26/23 8:49:00 EST, [facility], 162.56, cm, 10/03/23 9:00:00 EST, Height Start Date: 10/26/23 Status: Ordered SUDOGEST 30 MG TABLETS SUDOGEST 30 MG TABLETS, See Instructions, # 30 each, Refills 11, Tot. Refills 11, Maintenance, TAKE30 MG Q6H PRN PER DR CRANE FAX [phone], 02/01/19 9:46:36 EDT, Compound Start Date: 02/01/19 Status: Ordered Thera oral tablet 1 tablet, By Mouth, Daily in AM, VITAMIN., # 30 tablet, 5 Refills, Maintenance, 10/25/23 10:03:00 EST, [facility], 30, TAKE 1 TABLET BY MOUTH [...] mL, 1 Refills, Maintenance, 12/01/20 8:15:00 EST, [place], [facility], 1 sprays Topically 2 times a day, 162.56, cm, 02/24/20 9:30:00 EDT, Height Start Date: 12/01/20 Status: Ordered CHAKASSIN KUSHAL AVINAIN KUSHAL, See Instructions, # 420 mL, Refills 1, Tot. Refills 1, Maintenance, 10 ML PO Q4H PRN FORCOUGH AT BEDTIME PER DR CRANE FAX [phone], 05/22/20 8:48:00 EDT, [facility], 162.56, cm, 02/24/20 [...] Confirmed Active Vitamin D deficiency Confirmed Active 98684; repeat 2020 2colo 2006 nl, repeat 2015 [...] Event Display: Cardiovascular Results Scanned Authored Date: [id number] * Gely Spain: PERFORM Event Display: Cardiovascular Results Scanned Authored Date: Laboratory * Lesli Mejia: PERFORM Event Display: Laboratory Results Scanned Authored Date: [id number] * Gely Spain.: PERFORM Event Display: Laboratory Results Scanned Authored Date: [id number] * Joann Bergeron: PERFORM Event Display: Laboratory Results Scanned Authored Date: [id number] Radiology * Event Display: X-Ray Pelvis, Non- BH Authored Date: * Rody Kilpatrick: PERFORM Event Display: Radiology Results Scanned Authored Date: [id number] * Gely Spain: PERFORM Event Display: Radiology Results Scanned Authored Date: * Anay Wang: PERFORM Event Display: Radiology Results Scanned Authored Date: Patient Care team information Care Team Personnel Name: Schuyler Crane MD Position: S Physician - Primary Care Member Role: PCP Address: Address: [address] [place] [id number] Care Team Related Persons Name: ELLE ALMEIDA Address: [address] [place] [address] Name: ZAK SHELL
--- OUTSIDE RECORDS SUMMARY | 2024-04-02 09:45 | XMS_ITS | Continuity of Care Document ---
Author Organization [facility] Salv[place] Todd lt Address [address] [place] [address]- Care Team Providers Care Instructional Design Manager Name Role Phone Schuyler Crane MD Primary Care Physician [phone] [facility] Date[facility]): 06/05/23 - 07/05/23 [facility] Adult [address] [place] [address]- Allergies, Adverse Reactions, Alerts Substance Reaction Severity [...] [facility]# [id number] 2Result Comment: PCV23 - [facility]# [id number] 3Result Comment: [facility]# [id number] 4Result Comment: [10/28/2016] pharmacy 5Admin Note: given [...] 10/14/22 8:03:00 EST, Route to Pharmacy Electronically, [facility], 162.56, cm, 07/04/22 8:33:00 EDT, Height Start Date: 10/14/22 Status: Ordered All Day Allergy 10 mg oral tablet See Instructions, TAKE 1 TABLET (10 MG) BY MOUTH DAILY IN THE AM FOR SEASONAL ALLERGIES FROM DECEMBER THROUGH JUNE (START 12/24 / END 07/25) SEE ANCILLARY ORDERS, # 30 tablet, 2 Refills, Maintenance, 04/13/23 14:33:00 EDT, [facility], 162.56, cm, 0... Start Date: 04/13/23 Status: Ordered amLODIPine 10 mg oral tablet 1 tablet, By Mouth, Daily in AM, FOR HYPERTENSION., # 30 tablet, 5 Refills, Maintenance, 04/19/23 23:11:00 EDT, [facility], 162.56, cm, 04/10/23 7:35:00 EDT, Height Start Date: 04/19/23 Status: Ordered ANTACID 500 MG CHEWABLE TAB ANTACID 500 MG CHEWABLE TAB, See Instructions, # 90 each, Refills 3, Tot. Refills 3, Maintenance, TAKE 1 TABLET PO TID FOR OSTEOPOROSIS. MAY CRUSH TABLET PER DR ROSA MARIA CRUZ [phone], 07/20/18 12:11:49EDT, Compound Start Date: 07/20/18 Status: Ordered benzonatate 100 mg oral capsule 1 capsule, By Mouth, 3 times a day, PRN NEEDED FOR COUGH / IF NO IMPROVEMENT IN 3 DAYS NOTIFY MD/ IC, JAGRUTI, # 21 capsule, 0 Refills, Maintenance, 02/17/23 8:57:00 EDT, [facility], 162.56, cm, 07/04/22 8:33:00 EDT, Height Start Date: 02/17/23 Status: Ordered bisacodyl 10 mg rectal suppository See Instructions, INSERT 1 SUPP (10MG) INTO RECTUM NEEDED IF MILK OF MAGNESIA INEFFECTIVE AFTER 8 HRS/BISAC- EVAC EQUIVALENT/ IF SUPPOSITORY INEFFECTIVE AFTER 4 HRS CALL MD, # 7 supp, 11 Refills, Acute, [facility], 162.56, cm, 02/25/21 9:29:00... Start Date: 04/15/21 Status: Ordered Blood Pressure Monitor See Instructions, 1, 0, 0, 06/11/07 11:11:37, PRN, HTN, ADS OPPTHS, [facility] [place] [address] Start Date: 06/11/07 Status: Ordered calcium carbonate 500 mg (200 mg elemental calcium) oral tablet, chewable 1, tablet, By Mouth, 3 times a day, CRUSH. IC: CALCIUM CARBONATE, # 90 tablet, Refills 5, Maintenance, 02/17/23 8:57:00 EDT, Route to Pharmacy Electronically, [facility], 162.56, cm, 07/04/22 8:33:00 EDT, Height Start Date: 02/17/23 Status: Ordered carbamide peroxide 6.5% otic solution See Instructions, INSTILL 4 DROPS INTO EACH EAR TWICE DAILY FOR 5 DAYS EACH MONTH / IC: CARBAMIDE PEROXIDE (EAR DROPS 6.5%), # 15 mL, 11 Refills, Maintenance, 08/21/22 7:49:00 EST, [facility], 30, INSTILL 4 DROPS INTO EACH [...] capsule, 5 Refills, Maintenance, 06/06/23 14:01:00 EDT, [facility], 162.56, cm, 05/15/23 9:41:00 EDT, Height Start Date: 06/06/23 Status: Ordered EARWAX TREATMENT DROPS 6.5% EARWAX TREATMENT DROPS 6.5%, See Instructions, # 1 each, Refills 11, Tot. Refills 11, Maintenance, USE DIRECTED FAX [phone], 12/02/20 14:40:00 EST, [facility], 162.56, cm, 02/24/20 9:30:00 EDT, Height Start Date: 12/02/20 Status: Ordered fluoride 1.1% topical gel See Instructions, USE 1/4 INCH OF GEL TO BRUSH TEETH DAILY IN THE EVENING / BRUSH THOROUGHLY ALONG GUMLINE IC: DENTAGEL, # 56 Gm, 11 Refills, [facility], 30, USE 1/4 INCH OF GEL TO BRUSH TEETH DAILY IN THE EVENING / BRUSH THOROUGHLY ALONG GUMLINE... Start Date: 01/28/22 Status: Ordered Carolyn-jag 8.6 mg oral tablet 1 tablet, By Mouth, Daily in PM, FOR CONSTIPATION / SEE MILK OF MAG ORDERS / IC: SENNA 8.6 MG, # 15tablet, 6 Refills, Maintenance, 10/14/22 8:03:00 EST, [facility], 162.56, cm, 07/04/22 8:33:00EDT, Height Start Date: 10/14/22 Status: Ordered Hospital Bed See Instructions, # 1 each, Refills 0, Tot. Refills 0, Maintenance, [facility] DX: Left hip fracture, seizure dis, impulse control disorder, atypical autism. Duration ongoing NPI#[id number] Height: 5'6 Weight: 137lbs, 03/22/23 13:55:... Start Date: 03/22/23 Status: Ordered Milk of Magnesia 8% oral suspension See Instructions, TAKE 2 TABLESPOONFULS (30 ML) BY MOUTH AT BEDTIME NEEDED FOR CONSTIPATION ON DAY 3 OF NO BM / SEE BISCOLAX SUPP ORDER 30ML=2,400MG, # 300 mL, 5 Refills, Acute, [facility], 162.56, cm, 02/24/20 9:30:00 EDT, Height Start Date: 10/30/20 Status: Ordered MILLITRIUM TABLET See Instructions, 30, 11, 11, 06/20/08 13:07:29, TAKE 1 TABLET BY MOUTH DAILY (VITAMIN), [address] [address], Constant Indicator, MILLITRIUM TABLET Start Date: 06/20/08 Status: Ordered OCEAN SALINE NASAL MIST OCEAN SALINE NASAL MIST, See Instructions, # 1 each, Refills 2, Tot. Refills 2, Maintenance, use bid prn nasal dryness, 11/06/18 9:57:36 EST, Compound Start Date: 11/06/18 Status: Ordered Polysporin 500 u-45759 u/gm ointment See Instructions, APPLY A THIN LAYER TOPICALLY TWICE DAILY NEEDED TO RED, IRRITATED SKIN X 7 DAYS / SEE ANCILLARY ORDERS (BACITRACIN-POLYMYXIN OINTMENT), # 28.3 Gm, 5 Refills, Maintenance, 04/18/23 8:59:00 EDT, [facility], 7, APPLY A THIN LAYE... Start Date: 04/18/23 Status: Ordered pravastatin 40 mg oral tablet See Instructions, TAKE 1 TABLET (40 MG) BY MOUTH DAILY IN PM FOR HYPERLIPIDEMIA, # 30 tablet, 5 Refills, Maintenance, 02/17/23 13:00:00 EDT, [facility], 162.56, cm, 07/04/22 8:33:00 EDT, Height Start Date: 02/17/23 Status: Ordered Profola oral tablet 1 tablet, By Mouth, Daily, # 30 tablet, 11 Refills, Maintenance, 05/19/23 10:41:00 EDT, [facility], Partial fill upon patient request if [...] (SUPHEDRIN EQUIVALENT), # 30 tablet, 11 Refills, [facility], 162.56, cm, 03/24/22 10:31:00 EDT, Height Start Date: 04/22/22 Status: Ordered SUDOGEST 30 MG TABLETS SUDOGEST 30 MG TABLETS, See Instructions, # 30 each, Refills 11, Tot. Refills 11, Maintenance, TAKE30 MG Q6H PRN PER DR CRANE FAX [phone], 02/01/19 9:46:36 EDT, Compound Start Date: 02/01/19 [...] mL, 1 Refills, Maintenance, 12/01/20 8:15:00 EST, [place], 1 sprays Topically 2 times a day, 162.56, cm, 02/24/20 9:30:00 EDT, Height Start Date: 12/01/20 Status: Ordered TUSSIN DM TUSSIN DM, See Instructions, # 420 mL, Refills 1, Tot. Refills 1, Maintenance, 10 ML PO Q4H PRN FORCOUGH AT BEDTIME PER DR CRANE FAX [phone], 05/22/20 8:48:00 EDT, [facility], 162.56, cm, 02/24/20 [...] Confirmed Active Vitamin D deficiency Confirmed Active 60544; repeat 2020 2colo 2006 nl, repeat 2016 3Colonoscopy 2016 positive polyp, repeat 2020. 4colo 2015 Social History Social History Type Response Smoking Status Never smoker entered on: 02/01/16 Sex Patient Care team information Care Team Personnel Name: Schuyler Crane MD Position: S Physician - Primary Care Member Role: PCP Address: Address: [address] [place] [address] [place] [address]- Care Team Related Persons Name: ELLE ALMEIDA Address: home [address] [place] [address] [place] [address] Name: ZAK SHELL
--- OUTSIDE RECORDS SUMMARY | 2024-04-02 09:45 | XMS_ITS | Continuity of Care Document ---
Author Organization [facility] Salv[place] Todd lt Address [address] [place] [address]- Care Team Providers Care Systems Management Consultant Name Role Phone Schuyler Crane MD Primary Care Physician [phone] [facility] 12[facility]21[facility]22 - 01/20/23 [facility] [place] Adult [address] [place] [address]- Allergies, Adverse Reactions, Alerts Substance Reaction Severity [...] Comment: Td - [facility]# 52798-620-59 2Result Comment: PCV23 - [facility]# [id number] 3Result Comment: [facility]# [id number] 4Result Comment: [10/28/2016] pharmacy 5Admin Note: given [...] 10/14/22 8:03:00 EST, Route to Pharmacy Electronically, [facility], 162.56, cm, 07/04/22 8:33:00 EDT, Height Start Date: 10/14/22 Status: Ordered All Day Allergy 10 mg oral tablet See Instructions, TAKE 1 TABLET (10 MG) BY MOUTH DAILY IN THE AM FOR SEASONAL ALLERGIES FROM DECEMBER THROUGH JUNE (START 12/24 / END 07/25) SEE ANCILLARY ORDERS, # 30 tablet, 2 Refills, Maintenance, 07/22/22 15:15:00 EDT, [facility], 162.56, cm, 1... Start Date: 07/22/22 Status: Ordered amLODIPine 10 mg oral tablet See Instructions, TAKE 1 TABLET (10 MG) BY MOUTH DAILY IN AM FOR HYPERTENSION, # 30 tablet, 5 Refills, 09/29/22 11:37:00 EST, [facility], 162.56, cm, 07/04/22 8:33:00 EDT, Height Start Date: 09/29/22 Status: Ordered ANTACID 500 MG CHEWABLE TAB ANTACID 500 MG CHEWABLE TAB, See Instructions, # 90 each, Refills 3, Tot. Refills 3, Maintenance, TAKE 1 TABLET PO TID FOR OSTEOPOROSIS. MAY CRUSH TABLET PER DR ROSA MARIA CRUZ [phone], 07/20/18 12:11:49EDT, Compound Start Date: 07/20/18 Status: Ordered benzonatate 100 mg oral capsule 1 capsule, By Mouth, 3 times a day, PRN NEEDED FOR COUGH / IF NO IMPROVEMENT IN 3 DAYS NOTIFY MD/ IC, JAGRUTI, # 21 capsule, 0 Refills, [facility], 162.56, cm, 12/06/21 13:34:00 EDT, Height Start Date: 02/25/22 Status: Ordered bisacodyl 10 mg rectal suppository See Instructions, INSERT 1 SUPP (10MG) INTO RECTUM NEEDED IF MILK OF MAGNESIA INEFFECTIVE AFTER 8 HRS/BISAC- EVAC EQUIVALENT/ IF SUPPOSITORY INEFFECTIVE AFTER 4 HRS CALL MD, # 7 supp, 11 Refills, Acute, [facility], 162.56, cm, 02/25/21 9:29:00... Start Date: 04/15/21 Status: Ordered Blood Pressure Monitor See Instructions, 1, 0, 0, 06/11/07 11:11:37, PRN, HTN, ADS OPPTHS, [place] [address] Start Date: 06/11/07 Status: Ordered calcium carbonate [...] mL, 11 Refills, Maintenance, 08/21/22 7:49:00 EST, [facility], 30, INSTILL 4 DROPS INTO EACH [...] capsule, 5 Refills, Maintenance, 10/20/22 6:09:00 EST, [facility], 162.56, cm, 07/04/22 8:33:00 EDT, Height Start Date: 10/20/22 Status: Ordered EARWAX TREATMENT DROPS 6.5% EARWAX TREATMENT DROPS 6.5%, See Instructions, # 1 each, Refills 11, Tot. Refills 11, Maintenance, USE DIRECTED FAX [phone], 12/02/20 14:40:00 EST, [facility], 162.56, cm, 02/24/20 9:30:00 EDT, Height Start Date: 12/02/20 Status: Ordered fluoride 1.1% topical gel See Instructions, USE 1/4 INCH OF GEL TO BRUSH TEETH DAILY IN THE EVENING / BRUSH THOROUGHLY ALONG GUMLINE IC: DENTAGEL, # 56 Gm, 11 Refills, [facility], 30, USE 1/4 INCH OF GEL TO BRUSH TEETH DAILY IN THE EVENING / BRUSH THOROUGHLY ALONG GUMLINE... Start Date: 01/28/22 Status: Ordered Carolyn-jag 8.6 mg oral tablet 1 tablet, By Mouth, Daily in PM, FOR CONSTIPATION / SEE MILK OF MAG ORDERS / IC: SENNA 8.6 MG, # 15tablet, 6 Refills, Maintenance, 10/14/22 8:03:00 EST, [facility], 162.56, cm, 07/04/22 8:33:00EDT, Height Start [...] 30ML=2,400MG, # 300 mL, 5 Refills, Acute, [facility], 162.56, cm, 02/24/20 9:30:00 EDT, Height Start Date: 10/30/20 Status: Ordered MILLITRIUM TABLET See Instructions, 30, 11, 11, 06/20/08 13:07:29, TAKE 1 TABLET BY MOUTH DAILY (VITAMIN), [facility] [address] [place] [address], Constant Indicator, MILLITRIUM TABLET Start Date: 06/20/08 [...] bid prn nasal dryness PER DAWIT STOREY CRABBING MACHINE OPERATOR-C FAX [phone], 11/02/18 14:15:30 EST, [facility] Start Date: 11/02/18 Status: Ordered Ocuflox 0.3% solution 2 drops, Eyes, Both, 4 times a day, # 10 mL, 0 Refills, Maintenance, 01/10/17 14:21:09, Ophth Solution, 2 drops Eyes, Both 4 times a day Start Date: 01/10/17 Status: Ordered Polysporin 500 u-33801 u/gm ointment See Instructions, APPLY A THIN LAYER TOPICALLY TWICE DAILY NEEDED TO RED, IRRITATED SKIN X 7 DAYS / SEE ANCILLARY ORDERS (BACITRACIN-POLYMYXIN OINTMENT), # 28.3 Gm, 5 Refills, Maintenance, 04/14/21 14:39:00 EDT, [facility], 7, APPLY A THIN LAY... Start Date: 04/14/21 Status: Ordered pravastatin 40 mg oral tablet See Instructions, TAKE 1 TABLET (40 MG) BY MOUTH DAILY IN PM FOR HYPERLIPIDEMIA, # 30 tablet, 5 Refills, Maintenance, 08/21/22 14:03:00 EST, [facility], 162.56, cm, 07/04/22 8:33:00 EDT, Height [...] (SUPHEDRIN EQUIVALENT), # 30 tablet, 11 Refills, [facility], 162.56, cm, 03/24/22 10:31:00 EDT, Height Start Date: 04/22/22 Status: Ordered SUDOGEST 30 MG TABLETS SUDOGEST 30 MG TABLETS, See Instructions, # 30 each, Refills 11, Tot. Refills 11, Maintenance, TAKE30 MG Q6H PRN PER DR CRANE FAX [phone], 02/01/19 9:46:36 EDT, [facility] Start Date: 02/01/19 Status: Ordered THERA CAPLETS THERA CAPLETS, See Instructions, # 30 each, Refills 5, Tot. Refills 5, Maintenance, TAKE ONE CAPLETBY MOUTH QD PER DR ROSA MARIA HUGHESX [phone], 10/08/20 11:48:00 EST, [facility], 162.56, cm, 02/24/20 9:30:00 EDT, Height Start Date: 10/08/20 Status: Ordered Thera oral tablet See Instructions, TAKE 1 TABLET BY MOUTH DAILY IN THE AM (VITAMIN), # 30 tablet, 5 Refills, Maintenance, 08/25/22 14:03:00 EST, [facility], 30, TAKE 1 TABLET BY MOUTH [...] mL, 1 Refills, Maintenance, 12/01/20 8:15:00 EST, [place], [facility], 1 sprays Topically 2 times a day, 162.56, cm, 02/24/20 9:30:00 EDT, Height Start Date: 12/01/20 Status: Ordered JAMAL FATIMA, See Instructions, # 420 mL, Refills 1, Tot. Refills 1, Maintenance, 10 ML PO Q4H PRN FORCOUGH AT BEDTIME PER DR ROSA MARIA HUGHESX [phone], 05/22/20 8:48:00 EDT, [facility], 162.56, cm, 02/24/20 [...] Confirmed Active Vitamin D deficiency Confirmed Active 84125; repeat 2020 2colo 2006 nl, repeat 2015 3Colonoscopy 2016 positive polyp, repeat 2020. 4colo 2015 Social History Social History Type Response Smoking Status Never smoker entered on: 02/01/16 Sex Patient Care team information Care Team Personnel Name: Rosa Maria HUSTON, Schuyler Pope Position: [facility] Primary Care Physician Member Role: PCP Address: Address: [address] [place] [address] [place] [address]- Care Team Related Persons Name: ELLE ALMEIDA Address: [address] [place] [address] Name: ZAK SHELL
--- OUTSIDE RECORDS SUMMARY | 2024-04-02 09:45 | XMS_ITS | Continuity of Care Document ---
Author Organization [facility] Salvatore Todd lt Address [address] [place] [address]- Care Team Providers Care Mate Relief Name Role Phone Schuyler Crane MD Primary Care Physician [place] [facility] [place] 04/10/23 - 04/17/23 [facility] Adult [address] [place] [address]- Encounter Diagnosis Hip fracture, left(Discharge Diagnosis) - 04/10/23 Fall(Discharge Diagnosis) - 04/10/23 Abrasion of skin of right hip(Discharge Diagnosis) - 04/10/23 Rash(Discharge Diagnosis) - 04/10/23 Constipation(Discharge Diagnosis) - 04/10/23 Attending Physician: Zoe Mckee NP Referring Physician: [...] G iven 1Result Comment: Td - [facility]# [id number] 2Result Comment: PCV23 - [facility]# [id number] 3Result Comment: [facility]# [id number] 4Result Comment: [10/28/2016] pharmacy 5Admin Note: given [...] 10/14/22 8:03:00 EST, Route to Pharmacy Electronically, [facility], 162.56, cm, 07/04/22 8:33:00 EDT, Height Start Date: 10/14/22 Status: Ordered All Day Allergy 10 mg oral tablet See Instructions, TAKE 1 TABLET (10 MG) BY MOUTH DAILY IN THE AM FOR SEASONAL ALLERGIES FROM DECEMBER THROUGH JUNE (START 12/24 / END 07/25) SEE ANCILLARY ORDERS, # 30 tablet, 2 Refills, Maintenance, 04/13/23 14:33:00 EDT, [facility], 162.56, cm, 0... Start Date: 04/13/23 Status: Ordered amLODIPine 10 mg oral tablet See Instructions, TAKE 1 TABLET (10 MG) BY MOUTH DAILY IN AM FOR HYPERTENSION, # 30 tablet, 5 Refills, 09/29/22 11:37:00 EST, [facility], 162.56, cm, 07/04/22 8:33:00 EDT, Height Start Date: 09/29/22 Status: Ordered ANTACID 500 MG CHEWABLE TAB ANTACID 500 MG CHEWABLE TAB, See Instructions, # 90 each, Refills 3, Tot. Refills 3, Maintenance, TAKE 1 TABLET PO TID FOR OSTEOPOROSIS. MAY CRUSH TABLET PER DR ROSA MARIA CRUZ [phone], 07/20/18 12:11:49EDT, Compound Start Date: 07/20/18 Status: Ordered benzonatate 100 mg oral capsule 1 capsule, By Mouth, 3 times a day, PRN NEEDED FOR COUGH / IF NO IMPROVEMENT IN 3 DAYS NOTIFY MD/ IC, JAGRUTI, # 21 capsule, 0 Refills, Maintenance, 02/17/23 8:57:00 EDT, [facility], 162.56, cm, 07/04/22 8:33:00 EDT, Height Start Date: 02/17/23 Status: Ordered bisacodyl 10 mg rectal suppository See Instructions, INSERT 1 SUPP (10MG) INTO RECTUM NEEDED IF MILK OF MAGNESIA INEFFECTIVE AFTER 8 HRS/BISAC- EVAC EQUIVALENT/ IF SUPPOSITORY INEFFECTIVE AFTER 4 HRS CALL MD, # 7 supp, 11 Refills, Acute, [facility], 162.56, cm, 02/25/21 9:29:00... Start Date: 04/15/21 Status: Ordered Blood Pressure Monitor See Instructions, 1, 0, 0, 06/11/07 11:11:37, PRN, HTN, ADS OPPTHS, [facility] [id number] [place] [id number] Start Date: 06/11/07 Status: Ordered calcium carbonate 500 mg (200 mg elemental calcium) oral tablet, chewable 1, tablet, By Mouth, 3 times a day, CRUSH. IC: CALCIUM CARBONATE, # 90 tablet, Refills 5, Maintenance, 02/17/23 8:57:00 EDT, Route to Pharmacy Electronically, [facility], 162.56, cm, 07/04/22 8:33:00 EDT, Height Start Date: 02/17/23 Status: Ordered carbamide peroxide 6.5% otic solution See Instructions, INSTILL 4 DROPS INTO EACH EAR TWICE DAILY FOR 5 DAYS EACH MONTH / IC: CARBAMIDE PEROXIDE (EAR DROPS 6.5%), # 15 mL, 11 Refills, Maintenance, 08/21/22 7:49:00 EST, [facility], 30, INSTILL 4 DROPS INTO EACH [...] capsule, 5 Refills, Maintenance, 10/20/22 6:09:00 EST, [facility], 162.56, cm, 07/04/22 8:33:00 EDT, Height Start Date: 10/20/22 Status: Ordered EARWAX TREATMENT DROPS 6.5% EARWAX TREATMENT DROPS 6.5%, See Instructions, # 1 each, Refills 11, Tot. Refills 11, Maintenance, USE DIRECTED FAX [phone], 12/02/20 14:40:00 EST, [facility], 162.56, cm, 02/24/20 9:30:00 EDT, Height Start Date: 12/02/20 Status: Ordered fluoride 1.1% topical gel See Instructions, USE 1/4 INCH OF GEL TO BRUSH TEETH DAILY IN THE EVENING / BRUSH THOROUGHLY ALONG GUMLINE IC: DENTAGEL, # 56 Gm, 11 Refills, [facility], 30, USE 1/4 INCH OF GEL TO BRUSH TEETH DAILY IN THE EVENING / BRUSH THOROUGHLY ALONG GUMLINE... Start Date: 01/28/22 Status: Ordered Carolyn-jag 8.6 mg oral tablet 1 tablet, By Mouth, Daily in PM, FOR CONSTIPATION / SEE MILK OF MAG ORDERS / IC: SENNA 8.6 MG, # 15tablet, 6 Refills, Maintenance, 10/14/22 8:03:00 EST, [facility], 162.56, cm, 07/04/22 8:33:00EDT, Height Start [...] impulse control disorder, atypical autism. Duration ongoing NPI#[id number] Height: 5'6 Weight: 137lbs, 03/22/23 13:55:... Start [...] TAKE 1 TABLET BY MOUTH DAILY (VITAMIN), [facility] [address] [place] [address], Constant Indicator, MILLITRIUM TABLET Start Date: 06/20/08 [...] bid prn nasal dryness PER ZOE MCKEE CREDIT CARD INTERVIEWER-C FAX [phone], 11/02/18 14:15:30 EST, Compound Start Date: 11/02/18 Status: Ordered Ocuflox 0.3% solution 2 drops, Eyes, Both, 4 times a day, # 10 mL, 0 Refills, Maintenance, 01/10/17 14:21:09, Ophth Solution, 2 drops Eyes, Both 4 times a day Start Date: 01/10/17 Status: Ordered Polysporin 500 u-28007 u/gm ointment See Instructions, APPLY A THIN LAYER TOPICALLY TWICE DAILY NEEDED TO RED, IRRITATED SKIN X 7 DAYS / SEE ANCILLARY ORDERS (BACITRACIN-POLYMYXIN OINTMENT), # 28.3 Gm, 5 Refills, Maintenance, 04/14/21 14:39:00 EDT, [facility], 7, APPLY A THIN LAY... Start Date: 04/14/21 Status: Ordered pravastatin 40 mg oral tablet See Instructions, TAKE 1 TABLET (40 MG) BY MOUTH DAILY IN PM FOR HYPERLIPIDEMIA, # 30 tablet, 5 Refills, Maintenance, 02/17/23 13:00:00 EDT, [facility], 162.56, cm, 07/04/22 8:33:00 EDT, Height [...] (SUPHEDRIN EQUIVALENT), # 30 tablet, 11 Refills, [facility], 162.56, cm, 03/24/22 10:31:00 EDT, Height Start Date: 04/22/22 Status: Ordered SUDOGEST 30 MG TABLETS SUDOGEST 30 MG TABLETS, See Instructions, # 30 each, Refills 11, Tot. Refills 11, Maintenance, TAKE30 MG Q6H PRN PER DR CRANE FAX [phone], 02/01/19 9:46:36 EDT, Compound Start Date: 02/01/19 Status: Ordered THERA CAPLETS THERA CAPLETS, See Instructions, # 30 each, Refills 5, Tot. Refills 5, Maintenance, TAKE ONE CAPLETBY MOUTH QD PER DR CRANE FAX [phone], 10/08/20 11:48:00 EST, [facility], 162.56, cm, 02/24/20 [...] mL, 1 Refills, Maintenance, 12/01/20 8:15:00 EST, [place], 1 sprays Topically 2 times a day, 162.56, cm, 02/24/20 9:30:00 EDT, Height Start Date: 12/01/20 Status: Ordered KAILYNIN KUSHAL FATIMA, See Instructions, # 420 mL, Refills 1, Tot. Refills 1, Maintenance, 10 ML PO Q4H PRN FORCOUGH AT BEDTIME PER DR CRANE FAX [phone], 05/22/20 8:48:00 EDT, [facility], 162.56, cm, 02/24/20 [...] Confirmed Active Vitamin D deficiency Confirmed Active 83547; repeat 2020 2colo 2005 nl, repeat 2015 3Colonoscopy 2016 positive polyp, repeat 2020. 4colo 2015 Diagnosis Diagnosis Type Effective Dates Health Status Clinical Service Informant Hip fracture, left Discharge Diagnosis 04/10/23 Fall Discharge Diagnosis 04/10/23 Abrasion of skin of right hip Discharge Diagnosis 04/10/23 Rash Discharge Diagnosis 04/10/23 Constipation Discharge Diagnosis 04/10/23 Vital Signs Most recent to oldest [Reference Range]: 1 Height 162.56 cm (04/10/23 7:35 AM) Blood Pressure [90-138/55-84 mm Hg] 132/ 60mm Hg (04/10/23 7:35 AM) Mode of Delivery (Oxygen) Room air (04/10/23 7:35 AM) Blood pressure sites Arm, left (04/10/23 7:35 AM) Social History Social History Type Response Smoking Status Never smoker entered on: 02/01/16 Sex Patient Care team information Care Team Personnel Name: Rosa Maria HUSTON, Schuyler Pope Position: [facility] Physician - Primary Care Member Role: PCP Address: Address: [address] [place] [address] [place] [address]- Care Team Related Persons Name: ELLE ALMEIDA Address: home [address] [place] [id number] Name: ZAK SHELL
--- OUTSIDE RECORDS SUMMARY | 2024-04-02 09:45 | XMS_ITS | Continuity of Care Document ---
Author Organization [facility] Salvatore Todd lt Address [address] [place] [address]- Care Team Providers Care Slip Tender Name Role Phone Schuyler Crane MD Primary Care Physician [place] [facility] [place](s[place] 03/24/22 - 03/31/22 [facility] Adult [address] [place] [address]- Encounter Diagnosis Abrasion of skin(Discharge Diagnosis) - 03/24/22 Fall(Discharge Diagnosis) - 03/24/22 Attending Physician: Schuyler Crane MD Allergies, Adverse [...] Replace Required Details, Route to Pharmacy Electronically, [facility], 162.56, cm, 02/25/21 9:29:00 EDT, He... Start Date: 08/31/21 Status: Ordered amLODIPine 10 mg oral tablet See Instructions, TAKE 1 TABLET (10 MG) BY MOUTH DAILY IN AM FOR HYPERTENSION, # 30 tablet, 5 Refills, [facility], 162.56, cm, 02/25/21 9:29:00 EDT, Height Start Date: 09/30/21 Status: Ordered ANTACID 500 MG CHEWABLE TAB ANTACID 500 MG CHEWABLE TAB, See Instructions, # 90 each, Refills 3, Tot. Refills 3, Maintenance, TAKE 1 TABLET PO TID FOR OSTEOPOROSIS. MAY CRUSH TABLET PER DR ROSA MARIA CRUZ [phone], 07/20/18 12:11:49EDT, Compound Start Date: 07/20/18 Status: Ordered benzonatate 100 mg oral capsule 1 capsule, By Mouth, 3 times a day, PRN NEEDED FOR COUGH / IF NO IMPROVEMENT IN 3 DAYS NOTIFY MD/ IC, JAGRUTI, # 21 capsule, 0 Refills, [facility], 162.56, cm, 12/06/21 13:34:00 EDT, Height Start Date: 02/25/22 Status: Ordered bisacodyl 10 mg rectal suppository See Instructions, INSERT 1 SUPP (10MG) INTO RECTUM NEEDED IF MILK OF MAGNESIA INEFFECTIVE AFTER 8 HRS/BISAC- EVAC EQUIVALENT/ IF SUPPOSITORY INEFFECTIVE AFTER 4 HRS CALL MD, # 7 supp, 11 Refills, Acute, [facility], 162.56, cm, 02/25/21 9:29:00... Start Date: 04/15/21 Status: Ordered Blood Pressure Monitor See Instructions, 1, 0, 0, 06/11/07 11:11:37, PRN, HTN, ADS OPPTHS, [facility] [address] [address] Start Date: 06/11/07 Status: Ordered calcium carbonate 500 mg (200 mg elemental calcium) oral tablet, chewable See Instructions, TAKE 1 TABLET (500 MG) BY MOUTH 3 TIMES A DAY FOR OSTEOPOROSIS MAY CRUSH TABLET IC: CALCIUM CARBONATE, # 90 tablet, Refills 5, Instructions Replace Required Details, Route to Pharmacy Electronically, [facility], 162.56, cm, 11/23... Start Date: 02/25/22 Status: Ordered cetirizine 10 mg oral tablet 1 tablet, By Mouth, Daily in AM, FOR SEASONAL ALLERGIES FROM DECEMBER THROUGH JUNE (START 12/24) SEE ANCILLARY ORDERS., # 30 tablet, 5 Refills, [facility], 162.56, cm, 12/06/21 13:34:00 EDT, Height [...] 100 MG), # 60 capsule, 5 Refills, [facility], 162.56, cm, 12/06/21 13:34:00 EDT, Height Start Date: 01/13/22 Status: Ordered EARWAX TREATMENT DROPS 6.5% EARWAX TREATMENT DROPS 6.5%, See Instructions, # 1 each, Refills 11, Tot. Refills 11, Maintenance, USE DIRECTED FAX [phone], 12/02/20 14:40:00 EST, [facility];, [facility], 162.56, cm, [...] 30ML=2,400MG, # 300 mL, 5 Refills, Acute, [facility], 162.56, cm, 02/24/20 9:30:00 EDT, Height Start Date: 10/30/20 Status: Ordered MILLITRIUM TABLET See Instructions, 30, 11, 11, 06/20/08 13:07:29, TAKE 1 TABLET BY MOUTH DAILY (VITAMIN), [facility] [address] [place] [address], Constant Indicator, MILLITRIUM TABLET Start Date: 06/20/08 [...] bid prn nasal dryness PER DAWIT STOREY [employer] MECHANIC-C FAX [phone], 11/02/18 14:15:30 EST, Compound Start Date: 11/02/18 Status: Ordered Ocuflox 0.3% solution 2 drops, Eyes, Both, 4 times a day, # 10 mL, 0 Refills, Maintenance, 01/10/17 14:21:09, Ophth Solution, 2 drops Eyes, Both 4 times a day Start Date: 01/10/17 Status: Ordered Polysporin 500 u-12325 u/gm ointment See Instructions, APPLY A THIN LAYER TOPICALLY TWICE DAILY NEEDED TO RED, IRRITATED SKIN X 7 DAYS / SEE ANCILLARY ORDERS (BACITRACIN-POLYMYXIN OINTMENT), # 28.3 Gm, 5 Refills, Maintenance, 04/14/21 14:39:00 EDT, [facility], 7, APPLY A THIN LAY... Start Date: 04/14/21 Status: Ordered pravastatin 40 mg oral tablet 1 tablet, By Mouth, Daily, IN PM FOR HYPERLIPIDEMIA., # 30 tablet, 5 Refills, [facility], 162.56, cm, 12/06/21 13:34:00 EDT, Height [...] MG Q6H PRN PER DR CRANE FAX [phone], 02/01/19 9:46:36 EDT, Compound Start Date: 02/01/19 Status: Ordered Suphedrin 30 mg oral tablet See Instructions, TAKE 1 TAB (30 MG) BY MOUTH EVERY 6 HRS NEEDED FOR NASAL CONGESTION/ SEE ANCILLARY ORDERS (SUDOGEST EQUIVALENT), # 30 tablet, 11 Refills, Acute, [facility], 162.56, cm, 02/24/20 9:30:00 EDT, Height Start Date: 05/22/20 Status: Ordered THERA CAPLETS THERA CAPLETS, See Instructions, # 30 each, Refills 5, Tot. Refills 5, Maintenance, TAKE ONE CAPLETBY MOUTH QD PER DR CRANE FAX [phone], 10/08/20 11:48:00 EST, [facility], 162.56, cm, 02/24/20 9:30:00 EDT, Height Start Date: 10/08/20 Status: Ordered Thera oral tablet See Instructions, TAKE 1 TABLET BY MOUTH DAILY IN THE AM (VITAMIN), # 30 tablet, 5 Refills, [facility], 30, TAKE 1 TABLET BY MOUTH [...] mL, 1 Refills, Maintenance, 12/01/20 8:15:00 EST, [place], 1 sprays Topically 2 times a day, 162.56, cm, 02/24/20 9:30:00 EDT, Height Start Date: 12/01/20 Status: Ordered TUSSIN DM TUSSIN DM, See Instructions, # 420 mL, Refills 1, Tot. Refills 1, Maintenance, 10 ML PO Q4H PRN FORCOUGH AT BEDTIME PER DR CRANE FAX [phone], 05/22/20 8:48:00 EDT, [facility], 162.56, cm, 02/24/20 [...] Seizure disorder(Confirmed) Active Vitamin D deficiency(Confirmed) Active 29784; repeat 2020 2colo 2006 nl, repeat 2016 3Colonoscopy 2016 positive polyp, repeat 2020. 4colo 2015 Diagnosis Diagnosis Type Effective Dates Health Status Cl inical Service Informant Abrasion of skin Discharge Diagnosis 03/24/22 Fall Discharge Diagnosis 03/24/22 Vital Signs Most recent to oldest [Reference Range]: 1 Height 162.56 cm (03/24/22 10:31 AM) Weight 59.0 kg (03/24/22 10:31 AM) Body Mass Index [18.5-24.99] 22.33 (03/24/22 10:31 AM) Weight Obtained Via Patient/family state d (03/24/22 10:31 AM) Social History Social History Type Response Smoking Status Never smoker entered on: 02/01/16 Sex
--- OUTSIDE RECORDS SUMMARY | 2024-04-02 09:45 | XMS_ITS | Continuity of Care Document ---
Author Organization [facility] Salvatore Todd lt Address [address] [place] [address]- Care Team Providers Care Assistant Name Role Phone Schuyler Crane MD Primary Care Physician [phone] Encounter [facility] Date(s): 09/28/20 - 10/28/20 [facility] Adult [address] [place] [address]- Allergies, Adverse Reactions, Alerts Substance Reaction Severity [...] 5 Refills, Soft Stop, 04/03/20 16:18:00 EDT, [facility], 162.56, cm, 02/24/20 9:30:00 EDT, Height Start Date: 04/03/20 Status: Ordered amLODIPine 10 mg oral tablet 10 mg, 1, tablet, By Mouth, Daily, # 90 tablet, Refills 1, Tot. Refills 1, Soft Stop, 10/08/20 8:13:00 EST, Route to Pharmacy Electronically, [facility], 162.56, cm, 02/24/20 9:30:00 EDT, Height Start Date: 10/08/20 Status: Ordered ANTACID 500 MG CHEWABLE TAB ANTACID 500 MG CHEWABLE TAB, See Instructions, # 90 each, Refills 3, Tot. Refills 3, Maintenance, TAKE 1 TABLET PO TID FOR OSTEOPOROSIS. MAY CRUSH TABLET PER DR CRANE FX [phone], 07/20/18 12:11:49EDT, [facility] Start Date: 07/20/18 Status: Ordered Bisco-Lax 10 mg rectal suppository See Instructions, INSERT 1 SUPP (10MG) INTO RECTUM NEEDED IF MILK OF MAGNESIA INEFFECTIVE AFTER 8 HRS/BISAC- EVAC EQUIVALENT/ IF SUPPOSITORY INEFFECTIVE AF, # 7 supp, 11 Refills, Acute, [facility], 162.56, cm, 02/24/20 9:30:00 EDT, Height Start Date: 03/30/20 Status: Ordered Blood Pressure Monitor See Instructions, 1, 0, 0, 06/11/07 11:11:37, PRN, HTN, ADS OPPTHS, [facility] [id number] [place] [address] Start Date: 06/11/07 Status: Ordered calcium carbonate 500 mg (200 mg elemental calcium) oral tablet, chewable 500 mg, 1, tablet, By Mouth, 3 times a day, PER DR CRANE, # 90 tablet, Refills 11, Tot. Refills 11, Maintenance, 12/09/19 14:35:00 EDT, Route to Pharmacy Electronically, [facility], 162.56, cm, 02/12/19 10:36:00 EDT, [...] Gm, 11 Refills, Maintenance, 08/07/20 11:11:00 EST, [facility], 30, USE 1/4 INCH OF GEL TO BRUSH TEETH DAILY IN THE EVENING / BRUSH T... Start Date: 08/07/20 Status: Ordered docusate sodium 100 mg oral capsule 1 capsule, By Mouth, 2 times a day, # 60 capsule, 5 Refills, Maintenance, 07/30/20 15:26:00 EST, [facility], 162.56, cm, 02/24/20 9:30:00 EDT, Height Start Date: 07/30/20 Status: Ordered EARWAX TREATMENT DROPS 6.5% EARWAX TREATMENT DROPS 6.5%, See Instructions, # 1 each, Refills 11, Tot. Refills 11, Maintenance, USE DIRECTED FAX [phone], 10/01/19 11:14:00 EST, [facility];, Compound Start Date: [...] TABLET BY MOUTH DAILY (VITAMIN), [facility] [address] [place] [address], Constant Indicator, MILLITRIUM TABLET Start Date: 06/20/08 [...] prn nasal dryness PER DAWIT STOREY RN PICU-C FAX [phone], 11/02/18 14:15:30 EST, [facility] Start Date: 11/02/18 Status: Ordered Ocuflox 0.3% solution 2 drops, Eyes, Both, 4 times a day, # 10 mL, 0 Refills, Maintenance, 01/10/17 14:21:09, Ophth Solution, 2 drops Eyes, Both 4 times a day Start Date: 01/10/17 Status: Ordered Polysporin 500 u-89447 u/gm ointment See Instructions, APPLY A THIN LAYER TOPICALLY TWICE DAILY NEEDED TO RED, IRRITATED SKIN X 7 DAYS / SEE ANCILLARY ORDERS (BACITRACIN-POLYMYXIN OINTMENT), # 28.3 Gm, 5 Refills, Acute, [facility], 7, APPLY A THIN LAYER TOPICALLY TWICE DAILY N... Start Date: 03/30/20 Status: Ordered Polysporin 500 u-05725 u/gm ointment See Instructions, APPLY A THIN [...] MG Q6H PRN PER DR CRANE FAX [phone], 02/01/19 9:46:36 EDT, [facility] Start Date: 02/01/19 [...] MOUTH QD PER DR ROSA MARIA ANN [phone], 10/08/20 11:48:00 EST, [facility], 162.56, cm, 02/24/20 9:30:00 EDT, Height Start Date: 10/08/20 Status: Ordered Tinactin 1% spray 1 sprays, Topically, 2 times a day, # 120 mL, 1 Refills, Maintenance, 11/01/19 10:28:00 EST, [facility], 1 sprays Topically 2 times a day, 162.56, cm, 02/12/19 10:36:00 EDT, Height Start Date: 11/01/19 Status: Ordered TUSSIN DM KAILYNIN DM, See Instructions, # 420 mL, Refills 1, Tot. Refills 1, Maintenance, 10 ML PO Q4H PRN FORCOUGH AT BEDTIME PER DR CRANE FAX [phone], 05/22/20 8:48:00 EDT, [facility], 162.56, cm, 02/24/20 9:30:00 EDT, Height Start Date: 05/22/20 Status: Ordered Tylenol 325 mg oral tablet 650 mg, 2, tablet, By Mouth, Every 4 hours, PER DR CRANE, # 168 tablet, Refills 5, Tot. Refills 5, Maintenance, 10/04/19 10:27:00 EST, Route to Pharmacy Electronically, [facility], 162.56, cm, 02/12/19 10:36:00 EDT, [...] Active Underweight(Confirmed) Active Vitamin D deficiency(Confirmed) Active 46096; repeat 2020 2colo 2006 nl, repeat 2015 3Colonoscopy 2016 positive polyp, repeat 2020. 4colo 2015 Social History Social History Type Response Smoking Status Never smoker entered on: 02/01/16 Sex
[2024-04-02 09:52] VITALS: BP 129/58; PULSE 101; RESP 18; O2SAT 87
[2024-04-02 09:58] LABS: MANUAL DIFF FLAG NO
[2024-04-02 10:03] LABS: Basophils Percent Auto 0.4 % (0-2); Eosinophils Absolute Auto 0.1 X10*3/uL (0.0-0.4); Hematocrit 33.2 % (42.0-52.0); Hemoglobin 11.6 g/dl (14.0-18.0); Imm Gran Abs Auto 0.07 X10*3/uL (0.00-0.03); Imm Gran Pct Auto 0.7 % (0.0-0.4); Lymphocytes Absolute Auto 1.1 X10*3/uL (1.2-4.9); Lymphocytes Percent Auto 11.6 % (20-40); Mean Corpuscular HGB Conc 34.9 g/dl (31.0-36.0); Mean Corpuscular Hemoglobin 31.1 pg (27.0-33.0); Mean Platelet Volume 8.2 fL (9.4-12.4); Monocytes Absolute Auto 0.9 X10*3/uL (0.1-1.2); Monocytes Percent Auto 9.3 % (2-11); Neutrophils Absolute Auto 7.5 x10*3/uL (2.0-8.3); Platelet Count 386 X10*3/uL (160-400); Red Blood Count 3.73 X10*6/uL (4.60-5.80); Red Cell Distribution Width 13.5 % (11.0-16.0); White Blood Count 9.7 X10*3/uL (4.8-10.8)
--- NOTE | 2024-04-02 10:09 | PC.NURSE ---
pt presents to the ED from [facility] in [address]. staff members called d/t ongoing cough x a few days. when obtaining pt's vitals - staff noted pt to be at 88% on RA and low grade temp of 99.3 temporally - staff administered 650mg of tylenol and benzonatate around 0800. EMS gave pt a duoneb w/ good effect - bringing him up to 95% on RA. EMS had to hold mask in place as pt was resistant to care. upon ED arrival - pt is nonverbal baseline. does not make eye contact appropriately. flat affect. pt currently resistant to care but non aggressive. multiple staff needed to perform interventions. sinus tachycardia on the floor person - HR between 110-115bpm. on 87% on RA. RT bedside assessing pt. no wheezing noted. pt does not have a respiratory hx - no hx of asthma/copd. per RT - because pt is resistant to care - NC does not need to be placed on pt at this time as pt will just rip off equipment. per RT - will notify is pt falls below 86% on RA. no sob/wob noted. at this time. respirations even/unlabored. 20gIV placed in the left forearm/wrist - labs obtained/sent to lab. access wrapped w/ gauze for safety precautions. staff members from [facility] bedside w/ pt for support at this time. plan of care ongoing.
[2024-04-02 10:23] LABS: Lactic Acid 1.3 mmol/L (0.5-2.0)
[2024-04-02 10:34] LABS: Troponin-I High Sensitivity 10.2 ng/L (<3.5-35.0)
--- NOTE | 2024-04-02 10:38 | ED.SOB ---
HPI - SOB/Dyspnea General Chief Complaint: Dyspnea Stated Complaint: SOB 88% RA, DUONEB 95%,FROM GP HOME PER EMS Time Seen by Provider: 04/02/24 10:38 Source: patient and EMS Mode of arrival: EMS Limitations: other (Poor historian / nonverbal ) History of Present Illness ED Provider: Magda POLLOCK HPI Narrative: This is a 69-year-old male history of hypertension, OCD hyperlipidemia, epilepsy, microcephaly, atypical autism presents to the emergency department for shortness of breath, and cough, ongoing for the past few days. Intermittently coughing during my exam. According to EMS report staff members checked on patient earlier today where he was noted to have an 88% on room air saturation, patient was given a DuoNeb and room air sat up to 95%. According to EMS patient does not have a history of asthma and/or COPD. Related Data Home Medications ?Medication ?Instructions ?Recorded ?Confirmed acetaminophen 325 mg tablet 650 mg PO Q4H PRN Pain 02/26/23 02/26/23 amlodipine 10 mg tablet 10 mg PO DAILY 02/26/23 02/26/23 bacitracin zinc 500 unit-polymyxin 1 appl topical Q12H PRN skin 02/26/23 02/26/23 B 10,000 unit/gram topical breakdown ointment (Polysporin) benzonatate 100 mg capsule 100 mg PO TID PRN Cough 02/26/23 02/26/23 bisacodyl 10 mg rectal suppository 10 mg GA DAILY PRN Constipation 02/26/23 02/26/23 calcium carbonate (Antacid 500 mg PO TID 02/26/23 02/26/23 (calcium carbonate)) carbamide peroxide 6.5 % ear drops See Rx Instructions .Route .COMPLEX 02/26/23 02/26/23 (Ear Drops (carbamide peroxide)) cetirizine 10 mg tablet 10 mg PO DAILY 02/26/23 02/26/23 citalopram 10 mg tablet 10 mg PO DAILY 02/26/23 02/26/23 docusate sodium 100 mg capsule 100 mg PO BID 02/26/23 02/26/23 fluoride (sodium) 1.1 % dental gel 1 appl PO BEDTIME 02/26/23 02/26/23 hydroxyzine pamoate 25 mg capsule 25 mg PO DAILY PRN Anxiety 02/26/23 02/26/23 magnesium hydroxide 400 mg/5 mL 30 ml PO BEDTIME PRN Constipation 02/26/23 02/26/23 oral suspension (Milk of Magnesia) multivitamin with folic acid 400 1 tab PO DAILY 02/26/23 02/26/23 mcg tablet (Thera) pravastatin 40 mg tablet 40 mg PO BEDTIME 02/26/23 02/26/23 pseudoephedrine HCl 30 mg tablet 30 mg PO Q6H PRN Allergy Symptoms 02/26/23 02/26/23 (Suphedrin) risperidone 0.5 mg tablet 0.5 mg PO DAILY PRN Anxiety 02/26/23 02/26/23 risperidone 1 mg tablet 1 mg PO BID 02/26/23 02/26/23 sennosides 8.6 mg tablet (senna) 8.6 mg PO BEDTIME PRN Constipation 02/26/23 02/26/23 sodium chloride 0.65 % nasal spray 1 spray intranasal BID PRN dryness 02/26/23 02/26/23 aerosol (Saline Nasal) tolnaftate 1 % topical spray 2 spray topical BID PRN groin rash 02/26/23 02/26/23 powder (Tinactin) Previous Rx's ?Medication ?Instructions ?Recorded oxycodone 10 mg tablet,crush 10 mg PO BID #20 tabs 03/02/23 resistant,extended release 12 hr (OxyContin) FOAM DRESSING #20 ea 04/14/23 ibuprofen 800 mg tablet 800 mg PO Q8H PRN pain 30 days #90 06/01/23 tabs acetaminophen 500 mg tablet 1,000 mg (2 x 500 mg) PO Q6H PRN 01/26/24 (Tylenol Extra Strength) fever or pain #20 tabs prednisone 20 mg tablet 60 mg (3 x 20 mg) PO DAILY 5 days 01/26/24 #15 tabs celecoxib 200 mg capsule 200 mg PO BID #60 caps 02/01/24 clindamycin HCl 300 mg capsule 600 mg (2 x 300 mg) PO ONCE PRN 1 02/08/24 hr prior to dental work for ppx 1 day #2 caps Allergies Allergy/AdvReac Type Severity Reaction Status Date / Time Benzodiazepines Allergy Unknown UNKNOWN Verified 04/02/24 09:15 [BENZODIAZEPINES] Cephalosporins Allergy Unknown UNKNOWN Verified 04/02/24 09:15 [CEPHALOSPORINS] Penicillins [PENICILLINS] Allergy Unknown UNKNOWN Verified 04/02/24 09:15 Review of Systems Review of Systems: Yes Unobtainable due to mental status [facility] Past Medical History Attestation statement: The following information was validated with the patient. Source: old records reviewed and nursing notes reviewed Medical History Microcephaly Microencephaly Vitamin D deficiency Cataract Impulse control disease OCD (obsessive compulsive disorder) Autistic disorder Hyperlipemia Talipes equinus Constipation Hypertension Epilepsy Social History Social History Unable to assess alcohol history related to: Unable to respond Alcohol intake: never Comment: member from halfway @ bedside Patient Tobacco Use Status: Tobacco use Unknown Substance Use Type: Unknown Advance Directives: No Advance Directives Information Provided: No Do you have a plan to hurt others: No Plan service: No Current occupational status: disabled Physical Exam Vital Signs: Vital Signs: Last Vital Signs Temp 100.9 F H 04/02/24 09:29 Pulse 101 H 04/02/24 09:52 Resp 18 04/02/24 09:52 BP 129/58 L 04/02/24 09:52 Pulse Ox 87 L 04/02/24 09:52 O2 Del Method Room Air 04/02/24 09:52 BMI result Body Mass Index 22.9 Patient tachycardic, febrile. Appearance: Alert, awake. Nonverbal at baseline..? No acute distress.? Head: Normocephalic, atraumatic, no step-offs or deformities Eyes: Pupils equal, round and reactive to light.? Neck: Normal inspection.? Neck supple.? CVS: Normal heart rate and rhythm.? Pulses normal.? Respiratory: No respiratory distress.? Breath sounds bilateral lower lobe crackles.? Abdomen: Soft and nontender.? Skin: Skin warm and dry.? Normal skin color.? Normal skin turgor.? Extremities: No lower extremity edema.? No calf ttp. Global weakness Back: No midline tenderness, no C-spine tenderness, full range of motion, no CVA tenderness bilaterally Neuro: Alert, awake. Nonverbal at baseline. Does not follow instructions this is patient's baseline. Course Reevaluation(s) Reevaluation #1: CBC unremarkable. Chemistry no acute findings requiring intervention. Troponin 10.2, nonischemic EKG. Flu, COVID, RSV negative. Chest x-ray pending but appears to have a right-sided pneumonia. Plan is hospital admission. Time: 11:19 Medications Administered Discontinued Medications Generic Name Dose Route Start Last Admin Trade Name Jacob PRN Reason Stop Dose Admin Acetaminophen 975 mg 04/02/24 10:45 04/02/24 10:55 Acetaminophen 325 Mg Tablet PO 04/02/24 10:46 Not Given ONCE ONE Ceftriaxone Sodium 1 gm/ 50 mls @ 100 mls/hr 04/02/24 10:42 04/02/24 10:55 Sodium Chloride IV 04/02/24 11:11 100 mls/hr ONCE ONE Administration Ibuprofen 600 mg 04/02/24 10:55 04/02/24 10:56 Ibuprofen 600 Mg Tablet PO 04/02/24 10:56 600 mg ONCE ONE Administration Methylprednisolone Sodium Succinate 125 mg 04/02/24 10:42 04/02/24 10:55 Methylprednisolone Sod Succ 125 Mg/2 Ml Vial IVPUSH 04/02/24 10:43 125 mg ONCE ONE Administration Medical Decision Making Medical Decision Making [facility] Narrative: 1042 69-year-old nonverbal autistic male presents with cough, hypoxia at halfway times a few days worsening. Physical exam crackles to bilateral lower lobes History and physical exam concerning for pneumonia versus bronchitis versus viral illness. Unlikely PE, ACS, dissection. No signs of acute respiratory distress at this time. Plan labs, imaging, viral test. At this time infection suspected patient tachycardic, febrile, Tylenol ordered, ceftriaxone. Will hold on fluids at this time until BNP results. Differential Diagnosis Differential Diagnoses: The differential diagnosis associated with the presentation includes History and physical exam concerning for pneumonia versus bronchitis versus viral illness. Unlikely PE, ACS, dissection. No signs of acute respiratory distress at this time. Admission/Observation Consideration of admission/observation: Escalation of care including admission/observation considered Likely Consult Healthcare Provider Management of the patient was discussed with: Hospitalist Lab Data [facility] Lab Attestation statement: I reviewed the patient's lab results. 04/02/24 09:49 04/02/24 09:49 Labs: Lab Results 04/02/24 Range/Units 09:49 WBC 9.7 (4.8-10.8) X10*3/uL RBC 3.73 L (4.60-5.80) X10*6/uL Hgb 11.6 L (14.0-18.0) g/dl Hct 33.2 L (42.0-52.0) % MCV 89.0 (80.0-98.0) fL MCH 31.1 (27.0-33.0) pg MCHC 34.9 (31.0-36.0) g/dl RDW 13.5 (11.0-16.0) % Plt Count 386 (160-400) X10*3/uL MPV 8.2 L (9.4-12.4) fL Immature Gran % (Auto) 0.7 H (0.0-0.4) % Neut % (Auto) 77.0 H (45-73) % Lymph % (Auto) 11.6 L (20-40) % Harlan % (Auto) 9.3 (2-11) % Eos % (Auto) 1.0 (0-4) % Baso % (Auto) 0.4 (0-2) % Lymph # (Auto) 1.1 L (1.2-4.9) X10*3/uL Harlan # (Auto) 0.9 (0.1-1.2) X10*3/uL Eos # (Auto) 0.1 (0.0-0.4) X10*3/uL Baso # (Auto) 0.0 (0.0-0.2) X10*3/uL Abs Immat Gran (auto) 0.07 H (0.00-0.03) X10*3/uL Absolute Neuts (auto) 7.5 (2.0-8.3) x10*3/uL Absolute Nucleated RBC 0.000 (0.0-0.012) X10*3/uL Nucleated RBC % (auto) 0.0 (0.0-0.2) /100WBC Sodium 139 (135-145) mmol/L Potassium 4.1 (3.3-5.1) mmol/L Chloride 106 (96-108) mmol/L Carbon Dioxide 24 (22-29) mmol/L Anion Gap 13 (12-20) BUN 15 (9-16) mg/dL Creatinine 0.81 (0.5-1.4) mg/dL Estim Creat Clear Calc 80.4 Estimated GFR > 60 Random Glucose 157 H (60-115) mg/dL Lactic Acid 1.3 (0.5-2.0) mmol/L Calcium 9.4 D (8.4-10.2) mg/dL Total Bilirubin 0.5 (0.0-1.0) mg/dL AST 26 (5-37) U/L ALT 17 (0-40) U/L Alkaline Phosphatase 101 (39-117) U/L Troponin I High Sens 10.2 (<3.5-35.0) ng/L Total Protein 7.4 (6.5-8.0) g/dL Albumin 3.7 (3.5-5.0) g/dL Influenza Type A (PCR) NEGATIVE (Negative) Influenza Type B (PCR) NEGATIVE (Negative) RSV RNA Qual (PCR) NEGATIVE (Negative) SARS-CoV-2 RNA (RT-PCR) NEGATIVE (Negative) Independent Interpretation I performed an independent interpretation of an: EKG and Plain X-Ray Radiology Impression Discussion of test interpretation with radiology: I have reviewed the radiologist's reading. External Record Review External record reviewed: Inpatient record, Office record, Outpatient record, Prior outpatient labs, Prior outpatient radiology, Primary care record and Outside ED record Chronic Conditions Patient?s care impacted by: Hypertension and Other (autism, microcephaly, epilepsy, hypertension, HDL, OCD, atypical autism ) Critical Care Time Critical Care Time Critical Care Time: Yes Total Critical Care Time: 35 Attestation: I attest to this time spent taking care of the patient, obtaining history, physical, reviewing labs, imaging, speaking to my attending, specialist or hospitalist. Discharge Plan Discharge Clinical Impression: Pneumonia, Hypoxia Patient Disposition: Admitted As Inpatient Prescriptions: No Action (DME) FOAM DRESSING See Rx Instructions .Route .MEDSUPPLY Qty: 20 3RF Rx Instructions: As directed celecoxib 200 mg capsule 200 mg PO BID Qty: 60 3RF clindamycin HCl 300 mg capsule 600 mg PO ONCE PRN (Reason: 1 hr prior to dental work for ppx ) 1 Days Qty: 2 7RF sennosides [senna] 8.6 mg Tablet 8.6 mg PO BEDTIME PRN (Reason: Constipation) acetaminophen 325 mg tablet 650 mg PO Q4H PRN (Reason: Pain) cetirizine 10 mg tablet 10 mg PO DAILY Rx Instructions: HOLD WHEN HYDROXYZINE IN USE; IN USE DURING DECEMBER-JUNE pravastatin 40 mg tablet 40 mg PO BEDTIME citalopram 10 mg tablet 10 mg PO DAILY magnesium hydroxide [Milk of Magnesia] 400 mg/5 mL suspension 30 ml PO BEDTIME PRN (Reason: Constipation) amlodipine 10 mg tablet 10 mg PO DAILY benzonatate 100 mg Capsule 100 mg PO TID PRN (Reason: Cough) bisacodyl 10 mg suppository 10 mg GA DAILY PRN (Reason: Constipation) Rx Instructions: After 8 hrs of MOM with no BM calcium carbonate [Antacid (calcium carbonate)] 200 mg calcium (500 mg) tablet,chewable 500 mg PO TID Ear Drops (carbamide peroxide) 6.5 % drops See Rx Instructions .ROUTE .COMPLEX Rx Instructions: 4 drps into both ears twice daily for 5 days monthly docusate sodium 100 mg capsule 100 mg PO BID pseudoephedrine HCl [Suphedrin] 30 mg Tablet 30 mg PO Q6H PRN (Reason: Allergy Symptoms) Rx Instructions: DNExceed 4 doses/24h risperidone 1 mg tablet 1 mg PO BID fluoride (sodium) 1.1 % gel 1 appl PO BEDTIME Rx Instructions: brush along gum line tolnaftate [Tinactin] 1 % Aerosol Powder 2 spray TOPICAL BID PRN (Reason: groin rash) risperidone 0.5 mg tablet 0.5 mg PO DAILY PRN (Reason: Anxiety) hydroxyzine pamoate 25 mg capsule 25 mg PO DAILY PRN (Reason: Anxiety) Rx Instructions: HOLD CETIRIZINE WHEN IN USE Saline Nasal 0.65 % Aerosol,[place] 1 spray INTRANASAL BID PRN (Reason: dryness) bacitracin zinc-polymyxin B [Polysporin] 500-10,000 unit/gram Ointment 1 appl TOPICAL Q12H PRN (Reason: skin breakdown) multivitamin with folic acid [Thera] 400 mcg tablet 1 tab PO DAILY oxycodone [OxyContin] 10 mg Tablet,Oral Only,Ext.Rel.12 Hr 10 mg PO BID Qty: 20 0RF Rx Instructions: Partial Fill upon patient request. prednisone 20 mg tablet 60 mg PO DAILY 5 Days Qty: 15 0RF acetaminophen [Tylenol Extra Strength] 500 mg tablet 1,000 mg PO Q6H PRN (Reason: fever or pain) Qty: 20 0RF ibuprofen 800 mg tablet 800 mg PO Q8H PRN (Reason: pain) 30 Days Qty: 90 3RF Print Language: [place]
[2024-04-02 10:41] LABS: Influenza A PCR NEGATIVE (Negative); Influenza B PCR NEGATIVE (Negative); Resp Syncy Virus RNA Qual PCR NEGATIVE (Negative); SARS COV2 PCR INHOUSE NEGATIVE (Negative)
[2024-04-02 10:50] LABS: Alanine Aminotransferase 17 U/L (0-40); Albumin Level 3.7 g/dL (3.5-5.0); Alkaline Phosphatase 101 U/L (39-117); Anion Gap 13 (12-20); Aspartate Amino Transferase 26 U/L (5-37); Bilirubin Total 0.5 mg/dL (0.0-1.0); Blood Urea Nitrogen 15 mg/dL (9-16); Calcium 9.4 mg/dL (8.4-10.2); Carbon Dioxide 24 mmol/L (22-29); Chloride 106 mmol/L (96-108); Creatinine Clr Calc Pharmacy 80.4; Estimated Glomerular Filt Rate > 60; Glucose Random 157 mg/dL (60-115); Potassium 4.1 mmol/L (3.3-5.1); Sodium 139 mmol/L (135-145); Total Protein 7.4 g/dL (6.5-8.0)
[2024-04-02] MEDS: cefTRIAXone sodium 1 GM in 0.9 % Sodium Chloride 50 ML IV (10:55)
[2024-04-02] MEDS: methylPREDNISolone Sod Succ 125 MG/2 ML VIAL IVPUSH (10:55)
[2024-04-02] MEDS: Ibuprofen 600 MG TABLET PO (10:56)
--- NOTE | 2024-04-02 11:02 | PC.NURSE ---
sepsis alert initiated. medication administered per provider order - pills whole w/ applesauce. pt tolerated well. no difficulties noted. pt remains at 89% on RA - no sob/wob noted. respirations remain even/unlabored. staff remains bedside.
--- NOTE | 2024-04-02 11:19 | MHC.EDTECH ---
2nd EKG Ordered was not performed. Duplicate order placed by provider confirmed with provider Joseph GARRETT. Provider requested to disregard 2nd order. Initial EKG performed at 9:31 on 04/02/24.
[2024-04-02 11:23] LABS: B Type Natriuretic Peptide 43 pg/mL (<100)
--- NOTE | 2024-04-02 11:29 | PC.NURSE ---
attempted to place pt on 2L via NC at this time. tegaderm applied to pt's cheeks in attempts to secure NC in place. unsuccessful as pt is resistant to care/ripping off hospital equipment. pt remains on RA at this time. provider notified/aware of attempt.
[2024-04-02 11:59] VITALS: BP 152/60; PULSE 93; RESP 16; TEMP 37.2; O2SAT 90
--- NOTE | 2024-04-02 11:59 | PC.NURSE ---
repeat rectal temp obtained s/p medication administration - temperature displays 98.9. HR continues to trend downward at this time. rest of vitals remain stable aside from being 90% on RA. respirations remain even/unlabored. plan of care ongoing.
--- NOTE | 2024-04-02 12:09 | PHA.MEDREC ---
Pharmacy Consult ? Medication Reconciliation Pharmacy has completed the medication reconciliation. Confirmed medications with list provided by district manager primary care sales at bedside of patient. ob gyn stated he took his 8am meds today and his pm meds last night @8pm.
--- NOTE | 2024-04-02 13:02 | P.HPHOSP_ITS ---
History of Present Illness Date of Service: 04/02/24 Chief Complaint: Sepsis, Pneumonia A 69 years old male with PMH of HTN, Epilepsy, Autism, non-verbal presents from long-term for fever, SOB and cough for the last 2 days. the staff reports that he has been coughing for couple of days now with dyspnea but overnight they noticed fever and brought him to the hospital for further evaluation. Upon arrival he had fever, tachycardia and tachypnea with evedence of hypoxia. Treated with IV fluids, antiibotics with fair response. started on O2 supplement with good response. Admitted for further evaluation and treatment. Review of Systems 2 Review of Systems: Yes Unobtainable due to mental condition [facility] Medical History Microcephaly Microencephaly Vitamin D deficiency Cataract Impulse control disease OCD (obsessive compulsive disorder) Autistic disorder Hyperlipemia Talipes equinus Constipation Hypertension Epilepsy Social History Unable to assess alcohol history related to: Unable to respond Alcohol intake: never Comment: member from long-term @ bedside Patient Tobacco Use Status: Tobacco use Unknown Smoked in Last 30 Days: No Use of substances other than those prescribed or required for medical reasons: No Substance Use Type: Unknown Advance Directives: No Advance Directives Information Provided: No Do you have a plan to hurt others: No Plan service: No Current occupational status: disabled Meds Allergies Allergy/AdvReac Type Severity Reaction Status Date / Time Benzodiazepines Allergy Unknown UNKNOWN Verified 04/02/24 09:15 [BENZODIAZEPINES] Cephalosporins Allergy Unknown UNKNOWN Verified 04/02/24 09:15 [CEPHALOSPORINS] Penicillins [PENICILLINS] Allergy Unknown UNKNOWN Verified 04/02/24 09:15 Active Medications: Current Medications Amlodipine Besylate (Amlodipine Besylate 10 Mg Tablet) 10 mg PO DAILY RUPINDER; Protocol Benzonatate (Benzonatate 100 Mg Capsule) 100 mg PO TID PRN PRN Reason: Cough Bisacodyl (Bisacodyl 10 Mg Supp.Rect) 10 mg LA DAILY PRN PRN Reason: Constipation Carbamide Peroxide (Carbamide Peroxide 6.5% Otic 15 Ml Drpbtl) 0 drop EAR-BOTH .COMPLEX RUPINDER Celecoxib (Celecoxib 200 Mg Capsule) 200 mg PO BID RUPINDER Docusate Sodium (Docusate Sodium 100 Mg Capsule) 100 mg PO BID RUPINDER Hydroxyzine HCl (Hydroxyzine Hcl 25 Mg Tablet) 25 mg PO DAILY PRN PRN Reason: Anxiety Loratadine (Loratadine 10 Mg Tablet) 10 mg PO DAILY RUPINDER Magnesium Hydroxide (Milk Of Magnesia 30 Ml Oral.Susp) 30 ml PO BEDTIME PRN PRN Reason: Constipation Multivitamins/Vitamin C (Multivitamin Tablet) 1 tab PO DAILY RUPINDER Non-Formulary Medication (Citalopram) 10 mg PO DAILY RUPINDER Pravastatin Sodium (Pravastatin Sodium 40 Mg Tablet) 40 mg PO BEDTIME RUPINDER Pseudoephedrine HCl (Pseudoephedrine Hcl 30 Mg Tablet) 30 mg PO Q6H PRN PRN Reason: Allergy Symptoms Home Medications ?Medication ?Instructions ?Recorded ?Confirmed ?Last Taken ?Type acetaminophen 325 mg tablet 650 mg PO Q4H PRN Pain 02/26/23 04/02/24 Unknown History amlodipine 10 mg tablet 10 mg PO DAILY 02/26/23 04/02/24 04/02/24 08:00 History bacitracin zinc 500 unit-polymyxin 1 appl topical Q12H PRN skin 02/26/23 04/02/24 Unknown History B 10,000 unit/gram topical breakdown ointment (Polysporin) benzonatate 100 mg capsule 100 mg PO TID PRN Cough 02/26/23 04/02/24 Unknown History bisacodyl 10 mg rectal suppository 10 mg LA DAILY PRN Constipation 02/26/23 04/02/24 Unknown History calcium carbonate (Antacid 500 mg PO TID 02/26/23 04/02/24 04/02/24 08:00 History (calcium carbonate)) carbamide peroxide 6.5 % ear drops See Rx Instructions .Route .COMPLEX 02/26/23 04/02/24 04/02/24 08:00 History (Ear Drops (carbamide peroxide)) cetirizine 10 mg tablet 10 mg PO DAILY 02/26/23 04/02/24 04/02/24 08:00 History citalopram 10 mg tablet 10 mg PO DAILY 02/26/23 04/02/24 04/02/24 08:00 History docusate sodium 100 mg capsule 100 mg PO BID 02/26/23 04/02/24 04/02/24 08:00 History fluoride (sodium) 1.1 % dental gel 1 appl PO BEDTIME 02/26/23 04/02/24 04/01/24 20:00 History hydroxyzine pamoate 25 mg capsule 25 mg PO DAILY PRN Anxiety 02/26/23 04/02/24 Unknown History magnesium hydroxide 400 mg/5 mL 30 ml PO BEDTIME PRN Constipation 02/26/23 04/02/24 Unknown History oral suspension (Milk of Magnesia) multivitamin with folic acid 400 1 tab PO DAILY 02/26/23 04/02/24 04/02/24 08:00 History mcg tablet (Thera) pravastatin 40 mg tablet 40 mg PO BEDTIME 02/26/23 04/02/24 04/02/24 08:00 History pseudoephedrine HCl 30 mg tablet 30 mg PO Q6H PRN Allergy Symptoms 02/26/23 04/02/24 Unknown History (Suphedrin) risperidone 0.5 mg tablet 0.5 mg PO DAILY PRN Anxiety 02/26/23 04/02/24 Unknown History risperidone 1 mg tablet 1 mg PO BID 02/26/23 04/02/24 04/02/24 08:00 History sennosides 8.6 mg tablet (senna) 8.6 mg PO BEDTIME PRN Constipation 02/26/23 04/02/24 Unknown History sodium chloride 0.65 % nasal spray 1 spray intranasal BID PRN dryness 02/26/23 04/02/24 Unknown History aerosol (Saline Nasal) tolnaftate 1 % topical spray 2 spray topical BID PRN groin rash 02/26/23 04/02/24 Unknown History powder (Tinactin) Physical Exam 2 Vital Signs and Narrative: Vital Signs: Last Vital Signs Temp 98.9 F 04/02/24 11:59 Pulse 93 04/02/24 11:59 Resp 16 04/02/24 11:59 BP 152/60 H 04/02/24 11:59 Pulse Ox 90 L 04/02/24 11:59 O2 Del Method Room Air 04/02/24 11:59 BMI result Body Mass Index 22.9 Const: Other: Constitutional : Awake, non-verbal, not in distress Neck : Normal inspection, Supple Cardiovascular : RRR, no JVP, no lower extremity edema Respiratory : fair bilateral air entry decrease on the right base, basal RLL crackles, no wheezes i Gastrointestinal: soft, lax, Normal bowel sounds, Non tender Skin : Warm, Dry Neurological : Alert , No focal deficit Results Labs 04/02/24 09:49 04/02/24 09:49 Labs: Laboratory Results - last 24 hr 04/02/24 09:49 MCV 89.0 MCH 31.1 MCHC 34.9 RDW 13.5 Plt Count 386 MPV 8.2 L Immature Gran % (Auto) 0.7 H Neut % (Auto) 77.0 H Lymph % (Auto) 11.6 L Webster % (Auto) 9.3 Eos % (Auto) 1.0 Baso % (Auto) 0.4 Lymph # (Auto) 1.1 L Webster # (Auto) 0.9 Eos # (Auto) 0.1 Baso # (Auto) 0.0 Abs Immat Gran (auto) 0.07 H Absolute Neuts (auto) 7.5 Absolute Nucleated RBC 0.000 Nucleated RBC % (auto) 0.0 Anion Gap 13 Estim Creat Clear Calc 80.4 Estimated GFR > 60 Random Glucose 157 H Lactic Acid 1.3 Calcium 9.4 D Total Bilirubin 0.5 AST 26 ALT 17 Alkaline Phosphatase 101 Troponin I High Sens 10.2 B-Natriuretic Peptide 43 Total Protein 7.4 Albumin 3.7 Influenza Type A (PCR) NEGATIVE Influenza Type B (PCR) NEGATIVE RSV RNA Qual (PCR) NEGATIVE SARS-CoV-2 RNA (RT-PCR) NEGATIVE Imaging Radiologist's Impressions: Impressions Chest X-Ray 04/02/24 11:13 IMPRESSION: Suspect right pneumonia with parapneumonic effusion. Underlying mass cannot be excluded. Assessment and Plan (1) Hypoxia: Status: Acute (2) Pneumonia: Status: Acute (3) Sepsis: Status: Acute Plan A 69 years old male with PMH of HTN, Autism, non-verbal presents from long-term for fever, SOB and cough for the last 2 days. the staff reports that he has been coughing for couple of days Sepsis 2/2 Pnemonia complicated with acute hypoxic respiratory failure Had fever, tachycardia and hypoxia LA normal Start IV Unasyn check CT scan for further details, CXR showing RLL infiltrate, concern for mass ? pending final cultures wean O2 down as tolerated modified diet aspiration precautions [employer] team eval HTN, Amlodipine Mood disorder, Risperidone, Citalopram Not on seizure medications HLD, PRavastatin DVT PPx Lovenox The patient will likely need 2 overnight hospital stay for treatment of pneumonia pending further work up (CT scan) and final blood cultures. Quality Stroke Does the patient have a stroke diagnosis?: No VTE Prior VTE?: No VTE Risk Level:: Medical - moderate - high VTE Device Contraindication: Treatment Not Indicated VTE Drug Contraindication: N/A - Med Ordered
[2024-04-02] MEDS: Enoxaparin Sodium 40 MG/0.4 ML SYRINGE SUBCUT (13:46)
--- NOTE | 2024-04-02 14:34 | PC.NURSE ---
pt returned from CT at this time. report given to DIOGENES Medina in overflow at this time.
[2024-04-02 14:39] VITALS: BP 119/63; PULSE 94; RESP 24; O2SAT 89
--- NOTE | 2024-04-02 15:31 | MHC.SPEECHCO ---
CANE WEIGHER attempted to see Pt in ED OVER, however he refused all offerings by tossing his head to the side and clenching his mouth shut. His Fdc RN and another Staff member are in the room. They inform that he was on a Ground/Mechanical Solid (NDD2) and Thin Liquid diet at baseline. Pt is currently on a conservative diet of Puree Solids (NDD1) and Thin Liquids. RN is encouraged to continue trying PO during the shift. CANE WEIGHER will reattempt tomorrow morning.
[2024-04-02] MEDS: Azithromycin 500 MG in 0.9 % Sodium Chloride 250 ML 125 MG IV (18:33)
[2024-04-02] MEDS: 0.9 % Sodium Chloride Flush 3 ML SYRINGE IVFLUSH (18:34)
--- NOTE | 2024-04-02 19:17 | MHC.CM.PN ---
IMM 04/02. Reviewed with harley/AMANDA, Liz Springer ([phone]). Pt has a Bryan's order. All questions answered. Left at bedside with contact card per guardian's request. Will be in tomorrow. Liz will bring in guardianship paperwork tomorrow. Discussed diagnosis, plan of care and discharge plan with Liz. Liz tells CM that this patient has been to [facility] before, after his hip replacement, and it was not a good experience. Pt was at [facility]. She does not want him to return there and does not think STR would best serve her charge. Liz feels he would benefit from outpatient therapy, as he needs more creativity. He will not just do exercise repetitions and if therapist is not creative, he will simply refuse to engage. She has been communicating with the [facility] about outpatient PT. CM explained that normally, outpatient PT is arranged by the PCP. CM may be able to assist with this at discharge. Pt lives in a penitentiary. He is non-verbal, autistic. He has microcephaly. He is essentially wheelchair bound, does take some steps with assistance for very short distances with wheelchair support if needed. Pt was more mobile prior to his hip fx and replacement. Pt eats a ground diet with regular fluids at the penitentiary. LABORER CONSTRUCTION OR LEAK GANG assessment attempted evaluation today, but patient was not receptive to evaluation. According to penitentiary binder, pt likes to be called Bill or Saw and does not like physical contact. Pt was sleeping soundly with CM visit. Information obtained from director of operations support and patient binder and with conversation with guardian. D/C plan: return to [facility]iary. If PT recommended, guardian does not want STR. Would like outpatient PT. Pt will need transportation home. Nicholas Lauren-Director [phone] Ramsey Staples-Crane Ladle Person [phone] Isatu Nicholas-Furniture Designer [phone] Liz Springer-harley/AMANDA [phone]
[2024-04-02 20:31] VITALS: BP 117/60; PULSE 88; RESP 22; O2SAT 90
[2024-04-02] MEDS: Pravastatin Sodium 40 MG TABLET PO (21:31)
[2024-04-02] MEDS: Celecoxib 200 MG CAPSULE PO (21:31)
[2024-04-02] MEDS: risperiDONE 1 MG TABLET PO (21:31)
[2024-04-02] MEDS: Docusate Sodium 100 MG CAPSULE PO (21:31)
[2024-04-03] VITALS (7 sets, daily range): BP systolic 150–165; BP diastolic 68–103; PULSE 112–117; RESP 17–28; TEMP 37.2; O2SAT 88–92
[2024-04-03] MEDS: 0.9 % Sodium Chloride Flush 3 ML SYRINGE IVFLUSH ×3 (00:05→19:21)
[2024-04-03 09:21] LABS: Hemoglobin 12.2 g/dl (14.0-18.0); Mean Corpuscular HGB Conc 34.9 g/dl (31.0-36.0); Mean Corpuscular Hemoglobin 30.7 pg (27.0-33.0); Mean Corpuscular Volume 87.9 fL (80.0-98.0); Mean Platelet Volume 8.1 fL (9.4-12.4); Platelet Count 455 X10*3/uL (160-400); Red Blood Count 3.98 X10*6/uL (4.60-5.80); Red Cell Distribution Width 13.2 % (11.0-16.0); White Blood Count 11.3 X10*3/uL (4.8-10.8)
[2024-04-03 09:37] LABS: Anion Gap 15 (12-20); Blood Urea Nitrogen 20 mg/dL (9-16); Calcium 9.8 mg/dL (8.4-10.2); Carbon Dioxide 22 mmol/L (22-29); Chloride 107 mmol/L (96-108); Estimated Glomerular Filt Rate > 60; Glucose Random 202 mg/dL (60-115); Potassium 3.3 mmol/L (3.3-5.1); Sodium 141 mmol/L (135-145)
--- NOTE | 2024-04-03 09:37 | MHC.EDTECH ---
pt was washed up with complete bed change
--- NOTE | 2024-04-03 09:37 | MHC.EDTECH ---
pt ate 0% breakfast caregiver at bedside stated pt is super picky eater but drank his whole coffee
--- NOTE | 2024-04-03 10:31 | HO.PM.IMPN ---
Subjective Subjective Date of Service: 04/03/24 Interval History: seen and evaluated looks more alert and interactive no fever overnight waiting ELECTRONICS UTILITY WORKER team Review of Systems Review of Systems: Yes Unobtainable due to mental condition Physical Exam Vital Signs: Vital Signs: Last Vital Signs Temp 98.9 F 04/02/24 11:59 Pulse 88 04/02/24 20:31 Resp 18 04/03/24 01:36 BP 117/60 04/02/24 20:31 Pulse Ox 90 L 04/02/24 20:31 O2 Del Method Room Air 04/02/24 20:31 BMI result Body Mass Index 22.9 Const: Other: Constitutional : Awake, non-verbal, not in distress Neck : Normal inspection, Supple Cardiovascular : RRR, no JVP, no lower extremity edema Respiratory : fair bilateral air entry decrease on the right base, basal RLL crackles, no wheezes i Gastrointestinal: soft, lax, Normal bowel sounds, Non tender Skin : Warm, Dry Neurological : Alert , No focal deficit Objective Data Active Medications Acetaminophen (Acetaminophen 325 Mg Tablet) 650 mg PO Q6H PRN PRN Reason: Pain, Mild (Pain Scale 1-3), fever or headache Amlodipine Besylate (Amlodipine Besylate 10 Mg Tablet) 10 mg PO DAILY ON LICENSE OF [facility]; Protocol Last Admin: 04/02/24 13:42 Dose: Not Given Documented By: DEJA Non-Admin Reason: Previously Administered Comments: administered at senior living at 0800 Benzonatate (Benzonatate 100 Mg Capsule) 100 mg PO TID PRN PRN Reason: Cough Bisacodyl (Bisacodyl 10 Mg Supp.Rect) 10 mg [place] DAILY PRN PRN Reason: Constipation Calcium Carbonate (Calcium Carbonate 750 Mg Tab.Chew) 750 mg PO Q4H PRN PRN Reason: Heartburn Celecoxib (Celecoxib 200 Mg Capsule) 200 mg PO BID ON LICENSE OF [facility] Last Admin: 04/02/24 21:31 Dose: 200 mg Documented By: ISABELLE Docusate Sodium (Docusate Sodium 100 Mg Capsule) 100 mg PO BID ON LICENSE OF [facility] Last Admin: 04/02/24 21:31 Dose: 100 mg Documented By: ISABELLE Enoxaparin Sodium (Enoxaparin Sodium 40 Mg/0.4 Ml Syringe) 40 mg SUBCUT Q24H ON LICENSE OF [facility] Last Admin: 04/02/24 13:46 Dose: 40 mg Documented By: DEJA Escitalopram Oxalate (Escitalopram Oxalate 5 Mg Tablet) 5 mg PO DAILY ON LICENSE OF [facility] Hydroxyzine HCl (Hydroxyzine Hcl 25 Mg Tablet) 25 mg PO DAILY PRN PRN Reason: Anxiety Azithromycin 500 mg/ Sodium (Chloride) 250 mls @ 125 mls/hr IV Q24H ON LICENSE OF [facility] Last Infusion: 04/02/24 20:39 Dose: Infused Documented By: ISABELLE Ceftriaxone Sodium 1 gm/ (Sodium Chloride) 50 mls @ 100 mls/hr IV Q24H ON LICENSE OF [facility] Loratadine (Loratadine 10 Mg Tablet) 10 mg PO DAILY ON LICENSE OF [facility] Magnesium Hydroxide (Milk Of Magnesia 30 Ml Oral.Susp) 30 ml PO BEDTIME PRN PRN Reason: Constipation Melatonin (Melatonin 3 Mg Tablet) 6 mg PO BEDTIME PRN PRN Reason: Insomnia Multivitamins/Vitamin C (Multivitamin Tablet) 1 tab PO DAILY ON LICENSE OF [facility] Ondansetron HCl (Ondansetron Hcl 4 Mg/2 Ml Vial) 4 mg IVPUSH Q8H PRN PRN Reason: Nausea and Vomiting Pravastatin Sodium (Pravastatin Sodium 40 Mg Tablet) 40 mg PO BEDTIME ON LICENSE OF [facility] Last Admin: 04/02/24 21:31 Dose: 40 mg Documented By: ISABELLE Pseudoephedrine HCl (Pseudoephedrine Hcl 30 Mg Tablet) 30 mg PO Q6H PRN PRN Reason: Allergy Symptoms Risperidone (Risperidone 0.5 Mg Tablet) 0.5 mg PO DAILY PRN PRN Reason: Anxiety Risperidone (Risperidone 1 Mg Tablet) 1 mg PO BID ON LICENSE OF [facility] Last Admin: 04/02/24 21:31 Dose: 1 mg Documented By: ISABELLE Senna (Sennosides 8.6 Mg Tablet) 8.6 mg PO BEDTIME PRN PRN Reason: Constipation Sodium Chloride (Sodium Chloride 0.65 % Nasal 44 Ml Sprbtl) 1 spray NOSTRIL-B BID PRN PRN Reason: dryness Sodium Chloride (0.9 % Sodium Chloride Flush 3 Ml Syringe) 3 ml IVFLUSH QSHIFT ON LICENSE OF [facility] Last Admin: 04/03/24 00:05 Dose: 3 ml Documented By: JASON Labs 04/03/24 08:48 04/03/24 08:48 Labs: Laboratory Results - last 24 hr 04/02/24 04/03/24 09:49 08:48 MCV 87.9 MCH 30.7 MCHC 34.9 RDW 13.2 Plt Count 455 H MPV 8.1 L Absolute Nucleated RBC 0.000 Nucleated RBC % (auto) 0.0 Anion Gap 13 15 Estim Creat Clear Calc 80.4 88.0 Estimated GFR > 60 > 60 Random Glucose 157 H 202 H Calcium 9.4 D 9.8 Total Bilirubin 0.5 AST 26 ALT 17 Alkaline Phosphatase 101 Troponin I High Sens 10.2 B-Natriuretic Peptide 43 Total Protein 7.4 Albumin 3.7 Influenza Type A (PCR) NEGATIVE Influenza Type B (PCR) NEGATIVE RSV RNA Qual (PCR) NEGATIVE SARS-CoV-2 RNA (RT-PCR) NEGATIVE Assessment and Plan (1) Sepsis: Status: Acute (2) Hypoxia: Status: Acute (3) Pneumonia: Status: Acute Plan A 69 years old male with PMH of HTN, Autism, non-verbal presents from senior living for fever, SOB and cough for the last 2 days. the staff reports that he has been coughing for couple of days Sepsis 2/2 Pnemonia complicated with acute hypoxic respiratory failure No fever overnight CT scan and CXR showing RLL infiltrate, concern for mass to ercheck images as outpatient in 1-2 months pending final cultures Continue Azithromycin and Ceftriaxone wean O2 down as tolerated modified diet aspiration precautions : no reported issues by staff RLL infiltrate concerning for aspiration pending ELECTRONICS UTILITY WORKER team eval HTN, Amlodipine Mood disorder, Risperidone, Citalopram Not on seizure medications HLD, PRavastatin DVT PPx Lovenox The patient will likely need overnight hospital stay for treatment of pneumonia pending final blood cultures while on IV antibiotics Quality Stroke Does the patient have a stroke diagnosis?: No VTE Prior VTE?: No VTE Risk Level:: Medical - moderate - high VTE Device Contraindication: Treatment Not Indicated VTE Drug Contraindication: N/A - Med Ordered
[2024-04-03] MEDS: cefTRIAXone sodium 1 GM in 0.9 % Sodium Chloride 50 ML IV (10:56)
[2024-04-03] MEDS: Multivitamin TABLET 1 TAB PO (10:57)
[2024-04-03] MEDS: Escitalopram Oxalate 5 MG TABLET PO (10:57)
[2024-04-03] MEDS: risperiDONE 1 MG TABLET PO ×2 (10:57→20:35)
[2024-04-03] MEDS: Loratadine 10 MG TABLET PO (10:57)
[2024-04-03] MEDS: Celecoxib 200 MG CAPSULE PO ×2 (10:57→20:35)
[2024-04-03] MEDS: Docusate Sodium 100 MG CAPSULE PO ×2 (10:57→20:35)
[2024-04-03] MEDS: amLODIPine Besylate 10 MG TABLET PO (11:01)
--- NOTE | 2024-04-03 13:15 | MHC.EDTECH ---
pt ate 25% lunch
--- NOTE | 2024-04-03 14:00 | MHC.EDTECH ---
pt had a large bowel movement brown,soft
--- NOTE | 2024-04-03 14:31 | MHC.SL.SWA ---
Dysphasia Diet Status: UPGRADE Liquid Consistency and Strategies for Safe Swallow: Liquid Intake Recommendation: Thin Liquid Intake Strategies: Small Sips Solid Food Consistency: Dietary Recommendations: Grnd/Mech Altered (NDD2) Oral Medication Intake: Crushed with Puree Please contact the pharmacy regarding appropriate crushable or liquid drug formulations that are available whenever modified delivery is recommended. Compensatory Strategies and Precautions to be Taken for Safe Swallow: Sitting Upright (90 deg) Small Bites and Sips Alternate Liquids/Solids Rate of Ingestion Change Supervision While Eating and Drinking for Safe Swallow: Total Supervision (1:1) Swallowing Recommended Treatments: Compens. Strategy Educat. Recommendation for Speech: Inpatient Speech Therapy Comment: Recommend UPGRADE to baseline diet of GROUND/MECH ALTERED solids (NDD2) and THIN liquids. Recommend pills crushed when possible. Otherwise whole/cut in applesauce. Pt requires FULL SUPERVISION for ALL PO. Pt benefits from cueing to slow down rate of ingestion. Chest imaging concerning for aspiration; may consider MBSS inpatient vs. outpatient. Pt's tendancy to eat/drink quickly and impulsively increases his risk of aspiration. GLOVE PRINTER to continue to follow. Transportation Security Screener Clinican/Clinical Fellow: No Supervisory Statement: I have reviewed and agree with the student/clinical fellow's documentation: N/A Speech Language Pathologist: Jody Motta M.A., CCC-GLOVE PRINTER
--- NOTE | 2024-04-03 14:37 | MHC.EDTECH ---
pt voided in his pull up 5 times
[2024-04-03] MEDS: Enoxaparin Sodium 40 MG/0.4 ML SYRINGE SUBCUT (15:43)
[2024-04-03] MEDS: Pravastatin Sodium 40 MG TABLET PO (20:35)
--- NOTE | 2024-04-03 20:41 | PC.NURSE ---
pt alert and reasonably cooperative. Staff from [facility] at bedside. Guardian at bedside and paperwork added to chart. Pt tolerated meds whole in applesauce. Pt dislodged IV in late afternoon and IV azithromycin outstanding, MD Wilkins aware and med changed to PO. Pt with old wound on R hip with fragile pink skin visible with poor padding. [place] foam applied for protection. Pt repositioned off site multiple times but favors that side and frequently turns back. Pt awaiting transfer to medical floor.
[2024-04-03] MEDS: Benzonatate 100 MG CAPSULE PO (20:59)
[2024-04-03] MEDS: Azithromycin 500 MG TABLET PO (20:59)
--- NOTE | 2024-04-03 22:16 | HO.SKINPHOTO ---
Location: right hip Category: pressure Stage: I Length: Width: Depth: cm Location: Category: Stage: Length: Width: Depth: cm Location: Category: Stage: Length: Width: Depth: cm Location: Category: Stage: Length: Width: Depth: cm Location: Category: Stage: Length: Width: Depth: cm Location: Category: Stage: Length: Width: Depth: cm
--- NOTE | 2024-04-03 22:24 | PC.NURSE ---
Pt came up from ED Overflow with no IV access, pt received PO antibiotics in Overflow, attempted to try and place an IV but pt would not allow me to.
--- NOTE | 2024-04-03 22:54 | PC.NURSE ---
Pt's BP is 165/103 and HR 112. Pt is very resistive to care and does not like to be touched, constantly moving while taking vitals. Dr. Wilkins aware.
[2024-04-04] MEDS: Melatonin 3 MG TABLET 6 MG PO (02:22)
[2024-04-04 02:25] VITALS: BP 140/84; PULSE 114; RESP 16; TEMP 36.6
[2024-04-04] MEDS: Benzonatate 100 MG CAPSULE PO (04:36)
--- NOTE | 2024-04-04 06:36 | PM.EVENT ---
Event Note Date of Service: 04/04/24 Event Note: 6:24 AM -contacted to notify that patient has developed a pruritic rash to anterior aspect of his right wrist (see pic below). Patient wrist band is not currently on his right wrist but, it was yesterday. I am suspecting this is contact dermatitis secondary to the wrist band. We will order hydrocortisone ointment to apply to the affected area b.i.d.. Time Spent With Patient Time: Total time managing care of this patient today ____ minutes.
[2024-04-04 08:00] VITALS: TEMP 37.4
[2024-04-04] MEDS: amLODIPine Besylate 10 MG TABLET PO (08:43)
[2024-04-04] MEDS: cefTRIAXone sodium 1 GM in 0.9 % Sodium Chloride 50 ML IV (08:43)
[2024-04-04] MEDS: 0.9 % Sodium Chloride Flush 3 ML SYRINGE IVFLUSH (08:44)
[2024-04-04] MEDS: Docusate Sodium 100 MG CAPSULE PO (08:44)
[2024-04-04] MEDS: Escitalopram Oxalate 5 MG TABLET PO (08:44)
[2024-04-04] MEDS: Multivitamin TABLET 1 TAB PO (08:44)
[2024-04-04] MEDS: risperiDONE 1 MG TABLET PO (08:44)
[2024-04-04] MEDS: Loratadine 10 MG TABLET PO (08:44)
[2024-04-04] MEDS: Celecoxib 200 MG CAPSULE PO (08:45)
[2024-04-04] MEDS: Acetaminophen 325 MG TABLET 650 MG PO (09:18)
--- NOTE | 2024-04-04 09:37 | MHC.SL.SWA ---
Speech Pathologist Impression: Risk of Aspiration Due to: Dysphasia Diet Status: Continue on current diet of Ground Mechanical (NDD2) with thin liquids, small pills whole in puree, crush larger pills in puree. Liquid Consistency and Strategies for Safe Swallow: Liquid Intake Recommendation: Thin Liquid Intake Strategies: Small Sips Solid Food Consistency: Dietary Recommendations: Grnd/Mech Altered (NDD2) Additional Modifications to Solid Foods: Oral Medication Intake: Whole with Puree Please contact the pharmacy regarding appropriate crushable or liquid drug formulations that are available whenever modified delivery is recommended. Compensatory Strategies and Precautions to be Taken for Safe Swallow: Sitting Upright (90 deg) Liquids from Cup Small Bites and Sips Alternate Liquids/Solids Rate of Ingestion Change Supervision While Eating and Drinking for Safe Swallow: Total Supervision (1:1) Foods to Avoid: Difficult to chew solids. Swallowing Recommended Treatments: Compens. Strategy Educat. Recommendation for Speech: Inpatient Speech Therapy Comment: Patient seen at breakfast this a.m. Patient was awake and alert, had eaten a small portion of his meal. Per SUPERVISOR AGENCY APPOINTMENTS from Alf, Patient is a Picky eater and takes a long time at meals to eat. Patient was encouraged to take bites of oatmeal or eggs on tray, but at offer pushed table and tray away. Patient was observed taking sips of his Coffee, which is what he was mostly focused on at time of the visit. Patient took small sips, produced a timely swallow, evidenced no clinical signs of aspiration. Not associated with swallow, patient was noted to cough in bouts, at times vigorously, which care worker reported had been happening over night and disturbing his sleep. Diet appears appropriate at this time, if patient is eating minimally, he might be offered apple sauce which is reportedly a favorite food. Pills in applesauce is also encouraged, though RN reported patient tolerating pills with liquid. ROBOTYPE OPERATOR will continue to follow. Frequency/Duration: Date Range for Service Req: Timeline to reassess: Business Services Director Clinican/Clinical Fellow: No Supervisory Statement: I have reviewed and agree with the student/clinical fellow's documentation: N/A Speech Language Pathologist: Cinthya Vaz M.A., CCC-ROBOTYPE OPERATOR
--- NOTE | 2024-04-04 10:41 | MHC.CM.PN ---
Per MD rounds patient medically cleared for dc back to halfway. S transport scheduled for 2:30pm. long-term staff/nurse, guardian, and RN aware.
[2024-04-04 10:44] VITALS: TEMP 37.6
--- NOTE | 2024-04-04 11:07 | P.DS_ITS ---
DS: Providers Provider Date of Service: 04/04/24 Date of admission: 04/02/24 12:56 Primary care physician: Schuyler Mathews MD Consults: 04/03/24 21:55 Consult to Wound Care Routine Reason for consultation: pressure injury to right hip DS: Diagnosis Discharge Diagnosis (1) Sepsis: Status: Acute (2) Hypoxia: Status: Acute (3) Pneumonia: Status: Acute DS: Summary Hospital Course Hospital Course: Admission note HPI A 69 years old male with PMH of HTN, Epilepsy, Autism, non-verbal presents from [facility] for fever, SOB and cough for the last 2 days. the staff reports that he has been coughing for couple of days now with dyspnea but overnight they noticed fever and brought him to the hospital for further evaluation. Upon arrival he had fever, tachycardia and tachypnea with evedence of hypoxia. Treated with IV fluids, antiibotics with fair response. started on O2 supplement with good response. Admitted for further evaluation and treatment. Hospital course The patient was admitted for treatment of Sepsis secondary to Pnemonia complicated with acute hypoxic respiratory failure requiring O2 supplement. No fever over [address] the [address]. CT scan and CXR showing RLL infiltrate, concern for mass and will need to recheck images as outpatient in 1-2 months. blood cultures remained negative upon discharge. Treated with IV Azithromycin and Ceftriaxone and weaned O2 down to room air. He was placed on modified diet and aspiration precautions as he was evaluated by CLASSIFICATION CASE MANAGER team evritu who recommended to continue with NDD2 diet and crush pills. Discharge plan Continue on diet of Ground Mechanical (NDD2) with thin liquids, small pills whole in puree, crush larger pills in puree Azithromycin and Ceftin for 1 more week Mucinex PO twice daily for 1 more week recheck chest CT images as outpatient in 1-2 months Time Attestation Discharge Coordination Time (in mins): 37 Quality: Safe Use of Opioids Does Pt have an Active Cancer Diagnosis on the Problem List?: No Quality: Stroke Does the patient have a stroke diagnosis?: No Physical Exam Vital Signs: Vital Signs: Last Vital Signs Temp 99.6 F 04/04/24 10:44 Pulse 114 H 04/04/24 02:25 Resp 16 04/04/24 02:25 BP 140/84 H 04/04/24 02:25 Pulse Ox 92 04/03/24 21:37 O2 Del Method Room Air 04/03/24 21:37 BMI result Body Mass Index 22.9 Const: Other: Constitutional : Awake, non-verbal, not in distress Neck : Normal inspection, Supple Cardiovascular : RRR, no JVP, no lower extremity edema Respiratory : fair bilateral air entry, fine basal RLL crackles, no wheezes i Gastrointestinal: soft, lax, Normal bowel sounds, Non tender Skin : Warm, Dry Neurological : Alert , No focal deficit DS: Data Data Completed and Pending Completed studies during hospitalization [Text1]: Procedures Replacement of Left Hip Joint, Femoral Surface with Synthetic Substitute, Uncemented, Open Approach (02/26/23) Labs on day of discharge: Preliminary micro results at discharge 04/02/24 09:51 Blood Culture - Preliminary Blood - Venous No growth after 24 hours. 04/02/24 09:49 Blood Culture - Preliminary Blood - Venous No growth after 24 hours. Imaging Chest x-ray: Radiologist's impression: ITS Impressions Chest X-Ray 04/02/24 11:13 IMPRESSION: Suspect right pneumonia with parapneumonic effusion. Underlying mass cannot be excluded. Chest CT 04/02/24 14:11 IMPRESSION: Right middle, right lower lobe pneumonias with small right pleural effusion. Evaluation of lung manuel limited due to respiratory motion. Follow-up to resolution recommended. Fleischner guidelines were followed. Discharge Plan Discharge Anticipated Discharge Date/Time: 04/04/24 10:58 Patient Disposition: Home, Self-Care Discharge Diagnosis: Pneumonia Referrals: Schuyler Mathews MD [Primary Care Provider] - 1 Week Discharge Medications: New azithromycin 500 mg tablet 500 mg PO DAILY 7 Days Qty: 7 0RF cefuroxime axetil 500 mg tablet 500 mg PO BID Qty: 14 0RF guaifenesin [Mucinex] 600 mg tablet extended release 12hr 600 mg PO Q12H Qty: 14 0RF Continued (DME) FOAM DRESSING See Rx Instructions .Route .MEDSUPPLY Qty: 20 3RF Rx Instructions: As directed celecoxib 200 mg capsule 200 mg PO BID Qty: 60 3RF sennosides [senna] 8.6 mg Tablet 8.6 mg PO BEDTIME PRN (Reason: Constipation) acetaminophen 325 mg tablet 650 mg PO Q4H PRN (Reason: Pain) cetirizine 10 mg tablet 10 mg PO DAILY Rx Instructions: HOLD WHEN HYDROXYZINE IN USE; IN USE DURING DECEMBER-JUNE pravastatin 40 mg tablet 40 mg PO BEDTIME citalopram 10 mg tablet 10 mg PO DAILY magnesium hydroxide [Milk of Magnesia] 400 mg/5 mL suspension 30 ml PO BEDTIME PRN (Reason: Constipation) amlodipine 10 mg tablet 10 mg PO DAILY benzonatate 100 mg Capsule 100 mg PO TID PRN (Reason: Cough) bisacodyl 10 mg suppository 10 mg [place] DAILY PRN (Reason: Constipation) Rx Instructions: After 8 hrs of MOM with no BM calcium carbonate [Antacid (calcium carbonate)] 200 mg calcium (500 mg) tablet,chewable 500 mg PO TID Ear Drops (carbamide peroxide) 6.5 % drops See Rx Instructions .ROUTE .COMPLEX Rx Instructions: 4 drps into both ears twice daily for 5 days monthly docusate sodium 100 mg capsule 100 mg PO BID pseudoephedrine HCl [Suphedrin] 30 mg Tablet 30 mg PO Q6H PRN (Reason: Allergy Symptoms) Rx Instructions: DNExceed 4 doses/24h risperidone 1 mg tablet 1 mg PO BID fluoride (sodium) 1.1 % gel 1 appl PO BEDTIME Rx Instructions: brush along gum line tolnaftate [Tinactin] 1 % Aerosol Powder 2 spray TOPICAL BID PRN (Reason: groin rash) risperidone 0.5 mg tablet 0.5 mg PO DAILY PRN (Reason: Anxiety) Rx Instructions: Take 1 hour prior to any appointments. hydroxyzine pamoate 25 mg capsule 25 mg PO DAILY PRN (Reason: Anxiety) Rx Instructions: HOLD CETIRIZINE WHEN IN USE Saline Nasal 0.65 % Aerosol,[place] 1 spray INTRANASAL BID PRN (Reason: dryness) bacitracin zinc-polymyxin B [Polysporin] 500-10,000 unit/gram Ointment 1 appl TOPICAL Q12H PRN (Reason: skin breakdown) multivitamin with folic acid [Thera] 400 mcg tablet 1 tab PO DAILY Discharge Orders: Discharge Order (Routine); Ordered 04/04/24 Ordered By: Janene Shanks Diet: Advance to usual diet Activity on Discharge: As tolerated Stand Alone Forms: Patient Portal Discharge page Print Language: Georgian Care Plan Goals: Continue on diet of Ground Mechanical (NDD2) with thin liquids, small pills whole in puree, crush larger pills in puree Azithromycin and Ceftin for 1 more week Mucinex PO twice daily for 1 more week Health Concerns: Read below Plan of Treatment: Read below Assessment: Read below Discharge Date/Time: 04/04/24 17:02
[2024-04-04 11:21] LABS: Hematocrit 33.4 % (42.0-52.0); Hemoglobin 11.7 g/dl (14.0-18.0); Mean Corpuscular Hemoglobin 30.7 pg (27.0-33.0); Mean Corpuscular Volume 87.7 fL (80.0-98.0); Mean Platelet Volume 7.8 fL (9.4-12.4); NRBC Pct Auto 0.3 /100WBC (0.0-0.2); Platelet Count 451 X10*3/uL (160-400); Red Blood Count 3.81 X10*6/uL (4.60-5.80); Red Cell Distribution Width 13.6 % (11.0-16.0)
[2024-04-04 11:38] LABS: Anion Gap 11 (12-20); Blood Urea Nitrogen 24 mg/dL (9-16); Calcium 9.4 mg/dL (8.4-10.2); Carbon Dioxide 26 mmol/L (22-29); Chloride 107 mmol/L (96-108); Creatinine Clr Calc Pharmacy 81.4; Estimated Glomerular Filt Rate > 60; Glucose Random 163 mg/dL (60-115); Potassium 3.4 mmol/L (3.3-5.1); Sodium 141 mmol/L (135-145)
[2024-04-04] MEDS: Enoxaparin Sodium 40 MG/0.4 ML SYRINGE SUBCUT (13:11)
[2024-04-04 16:00] VITALS: RESP 16; TEMP 36.7
== END 2024-04-04 17:02 | disposition home or self-care (01) | DRG 871 ==
LOC: HO.ED 11:18 → HO.EDOVER 13:10 → HO.S3 04-03 19:44
PROVIDERS: Physician Assistant; Admitting Provider Student in an Organized Health Care Education/Training Program; Emergency Provider Emergency Medicine; PCP Internal Medicine; Visit Provider Student in an Organized Health Care Education/Training Program
DX: A41.9 Sepsis, unspecified organism (principal); J18.9 Pneumonia, unspecified organism; J96.01 Acute respiratory failure with hypoxia; F84.9 Pervasive developmental disorder, unspecified; E78.5 Hyperlipidemia, unspecified; R91.8 Other nonspecific abnormal finding of lung field; I10 Essential (primary) hypertension; Q02 Microcephaly; G40.909 Epilepsy, unspecified, not intractable, without status epilepticus; Z20.822 Contact with and (suspected) exposure to COVID-19; Z79.899 Other long term (current) drug therapy
CPT/HCPCS: 0241U; 36415; 71045; 71250; 80048; 80053; 83605; 83880; 84484; 85025; 85027; 87040; 92526; 92610; 93005; 99285; J0295; J0456; J0696; J1650; J2919

== ENCOUNTER → 2024-04-02 09:31 | Outpatient (BNV) | payer MEDICARE, MEDICAID, SELFPAY | PROVIDERS: Admitting Provider Student in an Organized Health Care Education/Training Program; Emergency Provider Emergency Medicine; PCP Internal Medicine; Visit Provider Internal Medicine Cardiovascular Disease | DX: R00.0 Tachycardia, unspecified (principal); R06.09 Other forms of dyspnea | CPT/HCPCS: 93010 ==

== ENCOUNTER → 2024-04-02 12:56 | Outpatient (BNV) | payer MEDICARE, MEDICAID, SELFPAY | PROVIDERS: Admitting Provider Student in an Organized Health Care Education/Training Program; Emergency Provider Emergency Medicine; PCP Internal Medicine; Visit Provider Student in an Organized Health Care Education/Training Program | DX: A41.9 Sepsis, unspecified organism (principal); J96.01 Acute respiratory failure with hypoxia; J18.9 Pneumonia, unspecified organism | CPT/HCPCS: 99223; 99232; 99239; 99499 ==

== ENCOUNTER 2024-06-25 11:09 | Outpatient (REF) | payer MEDICARE, MEDICAID, SELFPAY ==
--- NOTE | ~2024-06-25 | XR_ITS ---
EXAMINATION: XR PELVIS 2 VIEWS CLINICAL INFORMATION: M25.559 Pain in unspecified hip. COMPARISON: XR Pelvis 01/26/2024 TECHNIQUE: AP view of the pelvis. FINDINGS: Left hip arthroplasty intact without complication. There is no perihardware lucency. No acute fractures or dislocations. No soft tissue calcifications or subcutaneous gas. XR/XR pelvis 1-2V IMPRESSION: Left hip arthroplasty without complication. No acute fractures or dislocations. Electronically signed by: Tavo Arriaga DO 09/09/2024 02:19 PM [facility]
== END 2024-06-25 11:10 | disposition home or self-care (01) ==
LOC: HO.HOSX 11:09
PROVIDERS: Visit Provider Physician Assistant
DX: S72.052D Unspecified fracture of head of left femur, subsequent encounter for closed fracture with routine healing (principal); S90.02XD Contusion of left ankle, subsequent encounter; X58.XXXD Exposure to other specified factors, subsequent encounter; Z98.890 Other specified postprocedural states
CPT/HCPCS: 72170; 99212

== ENCOUNTER 2024-06-25 13:47 | Outpatient (AMB) | payer MEDICARE, MEDICAID, SELFPAY ==
--- NOTE | 2024-06-25 13:56 | A.OFFVIS_ITS ---
Intake Visit Reasons: OV - left hip shayne 02/28/23 NE Intake Note: King is a 69 year old male who presents today with his Nurse for a follow up s/p left hip shayne 02/28/23 NE. Patient is not able to walking many steps. The nurse informed me that he refuses to walk and would like to know if the hip is okay/in place. She mentions that back in January the patient was seen for his left ankle. No hx of fracture but she wants to know if you can take a look at it. Patient does have some bruising on the medial aspect of the ankle. Allergies Benzodiazepines [BENZODIAZEPINES] Allergy (Unknown, Verified 06/25/24 14:03) UNKNOWN Cephalosporins [CEPHALOSPORINS] Allergy (Unknown, Verified 06/25/24 14:03) UNKNOWN Penicillins [PENICILLINS] Allergy (Unknown, Verified 06/25/24 14:03) UNKNOWN HPI HPI OV - left hip shayne 02/28/23 NE: Details: 69-year-old male who presents in the office today with a [facility] staff member for a 15 months status post left hip hemiarthroplasty, which was performed on 02/28/[address] Do. I last saw the patient on 01/26/24, when he was accompanied by [facility] staff members. He was referred to physical therapy due to decreased ambulation since the surgery and for gait training. He was presented to the [facility] ED on 01/26/24 for the complaint of left foot edema and bruising. He was brought by the [facility] staff members and were concerned about his difficulty ambulation. X-rays of the left ankle were obtained. He was prescribed prednisone 20 mg 3 tabs once a day for 5 days and acetaminophen 500 mg 2 tabs Q6H PRN for pain relief. While in the office today, The [facility] staff reports a change in his ambulation status from his normal baseline. He is unable to walk many steps and was refusing to participate in ambulation. He is concerned about his left hip. The staff mentions that he still has mild bruising on the medial aspect of the left ankle. Patient has a medical history of epilepsy, and autism disorder. He also has a medical history of acute gout of left ankle. [facility] Medical History Microcephaly Microencephaly Vitamin D deficiency Cataract Impulse control disease OCD (obsessive compulsive disorder) Autistic disorder Hyperlipemia Talipes equinus Constipation Hypertension Epilepsy Social History Household Members: Other Household Members Other:: [facility] Housing: Other Housing Other:: group [facility] Do you presently have visiting nurse or other home services: Yes ([facility] nurse and staff) Unable to assess alcohol history related to: Unable to respond Alcohol intake: never Comment: group staff in room Patient Tobacco Use Status: Tobacco use Unknown Substance Use Type: Unknown service: No Current occupational status: disabled Review of Systems Const All systems reviewed & are unremarkable except as noted in HPI and below Physical Exam Const General: cooperative, healthy appearing and no acute distress Resp Effort & Inspection: normal respiratory effort and able to speak in complete sentences Cardio Rate: regular rate Peripheral pulses: Peripheral pulses 2+ throughout GI Palpation (GI): Soft to palpation Skin Lesions: no lesions Rashes: no rashes Extrem Other: Left hip: No signs of infection. Good internal and external rotation. Able to demonstrate a straight leg raise. NVI. Left ankle: Normal to inspection. No ecchymosis, erythema, or edema. The patient is able to demonstrate dorsiflexion, plantar flexion, pronation and supination. Negative anterior drawer. Sensation intact. Pedal Pulse intact. Assessment & Plan Assessment & Plan (1) Fracture of head of left femur: Comment: status post left hip hemiarthroplasty 02/28/2023 NE Code(s): S72.052A - Unspecified fracture of head of left femur, initial encounter for closed fracture Category: Medical Qualifiers: Encounter type: initial encounter Fracture type: closed Qualified Code(s): S72.052A - Unspecified fracture of head of left femur, initial encounter for closed fracture Plan Mr. Steen is a 69-year-old male who presents in the office today with a [facility] staff member for a 15 months status post left hip hemiarthroplasty, which was performed on 02/28/[address] Do. I last saw the patient on 01/26/24, when he was accompanied by [facility] staff members. He was referred to physical therapy due to decreased ambulation since the surgery and for gait training. He was presented to the [facility] ED on 01/26/24 for the complaint of left foot edema and bruising. He was brought by the [facility] staff members and were concerned about his difficulty ambulation. X-rays of the left ankle were obtained. He was prescribed prednisone 20 mg 3 tabs once a day for 5 days and acetaminophen 500 mg 2 tabs Q6H PRN for pain relief. While in the office today, The [facility] staff noticed a change in his ambulation status from his normal baseline. He is unable to walk many steps and was refusing to participate in ambulation. He is concerned about his left hip. The staff mentions that he still has mild bruising on the medial aspect of the left ankle. Patient has a medical history of epilepsy, and autism disorder. He also has a medical history of acute gout of left ankle. We discussed previously that the patient is at high risk for hip dislocation. Therefore, the [facility] staff, concerned due to his difficulty ambulation, scheduled an appointment for an X-ray to ensure there was no dislocation in the left hip. The patient is encouraged to participate in the day program. He was recommended to return to normal activities as tolerated in his left hip as well as left ankle. Follow up will be PRN, or sooner if needed. X-rays of the pelvis which were obtained while in the office today and were reviewed by me, Belgica Pryor PA-C, revealed negative for any acute fracture or dislocation. X-rays of the left ankle, obtained on 01/26/24, revealed: There is no fracture or dislocation. Joint spaces are well preserved. The regional soft tissue is normal in appearance. Patient Instructions: Scribed by Molly Bates senior medical billing specialist, for Belgica Pryor PA-C on 06/25/24 at 2:09 pm EST. Coding Level of Care Code Est Pt Level 3 (30907) Diagnoses Fracture of head of left femur S72.052A Encounter type: initial encounter Fracture type: closed
== END 2024-06-25 14:25 | disposition home or self-care (01) ==
PROVIDERS: PCP Internal Medicine; Visit Provider Physician Assistant
DX: S72.052S Unspecified fracture of head of left femur, sequela (principal)
CPT/HCPCS: 99213

== ENCOUNTER 2025-03-09 11:13 | Emergency (ER) | payer MEDICARE, MEDICAID, SELFPAY ==
[2025-03-09 11:15] VITALS: PULSE 85; RESP 16; TEMP 37; BMI 26.5
--- NOTE | 2025-03-09 11:20 | ED.GENADULT ---
HPI - General Adult General Chief complaint: Fall Stated complaint: diff using the bathroom Time Seen by Provider: 03/09/25 11:29 Source: other ([facility] rep) Mode of arrival: wheelchair Limitations: physical limitation and other (nonverbal) History of Present Illness ED Provider: Katina Lenz PA-C HPI narrative: 69-year-old male presenting to emergency department today for concerns of left-sided hip discomfort via [facility] denial management representative. Patient's past medical history significant for microcephaly, OCD, nonverbal autistic disorder and epilepsy. Around 10:00 this morning patient was assisted with going to the bathroom he was transferred from his walker onset of toilet which has assistive device to hold him in place. After patient past bowel he instantly stood up causing him to lose his balance and slide forward. He slowly slid down the left side of the wall. He did not fall completely to the ground as patient's cashier assistant was able to grab his Holter on him and slowly lowered him all the way before damaging anything. As he has a history of a left-sided hip replacement in 2022 [facility] would like to make sure he did not damage in any way. They are requesting imaging. They have not noticed him once in a pain and he is still moving his legs. No head trauma patient does not guard not able to ask him review of systems. Patient has been at this [facility] since high school. His caregiver that is with him today from the [facility] has been with him since November 2022. She states at baseline he jumps up from the toilet sometimes says he does not like to have his bottom wiped. Onset (ago): hour(s) (2) Location: left (hip) Related Data Home Medications ?Medication ?Instructions ?Recorded ?Confirmed acetaminophen 325 mg tablet 650 mg PO Q4H PRN Pain 02/26/23 04/02/24 amlodipine 10 mg tablet 10 mg PO DAILY 02/26/23 04/02/24 bacitracin zinc 500 unit-polymyxin 1 appl topical Q12H PRN skin 02/26/23 04/02/24 B 10,000 unit/gram topical breakdown ointment (Polysporin) benzonatate 100 mg capsule 100 mg PO TID PRN Cough 02/26/23 04/02/24 bisacodyl 10 mg rectal suppository 10 mg VT DAILY PRN Constipation 02/26/23 04/02/24 calcium carbonate (Antacid 500 mg PO TID 02/26/23 04/02/24 (calcium carbonate)) carbamide peroxide 6.5 % ear drops See Rx Instructions .Route .COMPLEX 02/26/23 04/02/24 (Ear Drops (carbamide peroxide)) cetirizine 10 mg tablet 10 mg PO DAILY 02/26/23 04/02/24 citalopram 10 mg tablet 10 mg PO DAILY 02/26/23 04/02/24 docusate sodium 100 mg capsule 100 mg PO BID 02/26/23 04/02/24 fluoride (sodium) 1.1 % dental gel 1 appl PO BEDTIME 02/26/23 04/02/24 hydroxyzine pamoate 25 mg capsule 25 mg PO DAILY PRN Anxiety 02/26/23 04/02/24 magnesium hydroxide 400 mg/5 mL 30 ml PO BEDTIME PRN Constipation 02/26/23 04/02/24 oral suspension (Milk of Magnesia) multivitamin with folic acid 400 1 tab PO DAILY 02/26/23 04/02/24 mcg tablet (Thera) pravastatin 40 mg tablet 40 mg PO BEDTIME 02/26/23 04/02/24 pseudoephedrine HCl 30 mg tablet 30 mg PO Q6H PRN Allergy Symptoms 02/26/23 04/02/24 (Suphedrin) risperidone 0.5 mg tablet 0.5 mg PO DAILY PRN Anxiety 02/26/23 04/02/24 risperidone 1 mg tablet 1 mg PO BID 02/26/23 04/02/24 sennosides 8.6 mg tablet (senna) 8.6 mg PO BEDTIME PRN Constipation 02/26/23 04/02/24 sodium chloride 0.65 % nasal spray 1 spray intranasal BID PRN dryness 02/26/23 04/02/24 aerosol (Saline Nasal) tolnaftate 1 % topical spray 2 spray topical BID PRN groin rash 02/26/23 04/02/24 powder (Tinactin) Previous Rx's ?Medication ?Instructions ?Recorded FOAM DRESSING #20 ea 04/14/23 azithromycin 500 mg tablet 500 mg PO DAILY 7 days #7 tabs 04/04/24 cefuroxime axetil 500 mg tablet 500 mg PO BID #14 tabs 04/04/24 guaifenesin 600 mg tablet, 600 mg PO Q12H #14 tabs 04/04/24 extended release 12 hr (Mucinex) celecoxib 200 mg capsule 200 mg PO BID for pain #60 caps 11/28/24 Allergies Allergy/AdvReac Type Severity Reaction Status Date / Time Benzodiazepines Allergy Unknown UNKNOWN Verified 03/09/25 11:22 (BENZODIAZEPINES) Cephalosporins Allergy Unknown UNKNOWN Verified 03/09/25 11:22 (CEPHALOSPORINS) Penicillins (PENICILLINS) Allergy Unknown UNKNOWN Verified 03/09/25 11:22 Review of Systems Review of Systems: Yes Unobtainable due to mental status [facility] Past Medical History Attestation statement: The following information was validated with the patient. (validated by [facility] denial management representative with binder) Source: nursing notes reviewed and other ([facility] medical hx rev'd) Medical History Microcephaly Microencephaly Vitamin D deficiency Cataract Impulse control disease OCD (obsessive compulsive disorder) Autistic disorder Hyperlipemia Talipes equinus Constipation Hypertension Epilepsy Social History Social History Household Members: Other Household Members Other:: [facility] Housing: Other Housing Other:: [facility] Do you presently have visiting nurse or other home services: Yes ([facility] nurse and staff) Unable to assess alcohol history related to: Unable to respond Alcohol intake: never Comment: group staff in room Patient Tobacco Use Status: Tobacco use Unknown Smoked in Last 30 Days: No Use of substances other than those prescribed or required for medical reasons: No Substance Use Type: Unknown Advance Directives: No Advance Directives Information Provided: Yes service: No Current occupational status: disabled Physical Exam ED Vital Signs: Vital Signs - 24 hr 03/09/25 11:15 Temperature 98.6 F Pulse Rate 85 Respiratory Rate 16 Oxygen Delivery Method Room Air BMI result Body Mass Index 26.5 Const General: cooperative, healthy appearing and no acute distress Nutritional Appearance: other (contracted arms) Orientation/consciousness: Other orientation findings (unable to access) Limitations: behavioral limitations and physical limitations HENMT Head: Yes normal to inspection, Yes No palpable skull fracture present and Yes atraumatic Ears: hearing grossly normal bilaterally (shakes head yes to my question) General nose exam: Normal external nose present Mouth: Normal oral and palatal mucosa present Throat: Yes posterior oropharynx normal Eyes General: appearance normal, both eyes and all related structures Conjunctivae: conjunctivae normal Chest Chest palpation & inspection: normal inspection of the chest Resp Effort & Inspection: normal respiratory effort Auscultation: clear to auscultation bilaterally Cardio Jugular venous distension: no JVD Rate: regular rate Rhythm: regular rhythm GI Inspection: Yes normal to inspection Auscultation: normal bowel sounds Rectal Exam - Male: Yes deferred Skin General skin exam: no rashes or lesions noted, elasticity normal and turgor normal Lesions: no lesions Trauma: no lacerations or abrasions Wounds: no wounds Extrem Other: not able to access gait, moving legs up and down and sideways, no deformity or retraction with palpation General: Yes capillary refill normal, Yes normal exam except as noted, Yes no pedal edema and Yes muscle atrophy Right upper extremity: normal to inspection Left upper extremity: normal to inspection Course Course Course Narrative: This is a rapid medical exam. Deferred additional HPI, ROS, PE to primary provider. 69 yo male with history of seizures, HTN, nonverbal, anxiety, OCD here after having a witnessed fall with assist from standing striking the left side of the body. No head strike or LOC. No AC therapy. Per staff patient does not appear to be in pain. Unable to obtain VS or examine patient in triage Medical Decision Making Medical Decision Making MDM Narrative: Patient presents to ED today for evaluation of concern for left sided hip injury from staff . EDUARD is sliding against wall and almost fall. H and P as above. ROS limited secondary to nonverbal autistic disorder. Patient is afebrile with stable vitals and well-appearing. ?History and physical as stated above. ?Patient is neurovascular intact in the affected extremity. At this time no evidence of NVC to warrant further work up/ intervention or consult. Patient refused imaging and appears to be moving leg well without obvious deformity.?Patient's symptoms are consistent with a contusion. ?Discussed icing it, elevating and alternating ibuprofen and Tylenol for discomfort. ?Discussed that there is no significant improvement in the next 1 to 2 weeks to follow-up with an ?orthopedic clinic, information given. Discussed symptomatic treatment with the patient's caregiver. ?Discussed return precautions. ?Patient's caregiver verbalized understanding of the above plan and is in agreement with the above plan. ?The patient was discharged home in stable condition with return precautions. 12:40 pm: Patient refused x-ray. I am satisfied with the idea to defer imaging as I do not believe it was much indicated in the 1st place as patient did not have any direct fall and he did not show any obvious signs of deformity on exam and he had range of motion symmetric to his unaffected side nor did it show any skin changes. Differential Diagnosis Differential Diagnoses: The differential diagnosis associated with the presentation includes contusion, dislocation, strain of left hip/pelvis Admission/Observation Consideration of admission/observation: Escalation of care including admission/observation considered Patient would have been admitted to the hospital had his work up had any findings where hospital admission was appropriate and his clinical presentation warranted hospital admission. Independent Historian Clinical information obtained from an independent historian. History obtained from or confirmed by: Other (caregiver) Tests considered The following testing was considered but not selected: xray of hip: nontender pt declined Prescription Management I considered prescription management with: Pain Medication no retraction prn tylenol otc is deemed appropriate Chronic Conditions Patient?s care impacted by: Other nonverbal autistic disorder Social Determinants Patient?s care significantly limited by Social Determinants of Health including: Other Social Determinant of Health Discharge Plan Discharge Clinical Impression: Contusion of hip, left Patient Disposition: Home, Self-Care Instructions: Hip Contusion (ED) Additional Instructions: Patient was evaluated in the emergency department today for potential injury to his left hip in the setting of a potential almost fall as well as history of a hip replacement on that side. He had a reassuring physical exam there is no evidence of neurovascular compromise or obvious deformity or skin changes. He has good range of motion and does not retract and pain in any way despite him not being able to verbalize what his level of discomfort could be. X-rays were offered as a measure of reassurance purposes although not indicated. Patient has declined to get imaging. This was deemed appropriate as of today there is no concern of deformity hardware male function or fracture. Please monitor patient for any changes and bearing weight or skin changes concerning for potential complication. As of today his presentation most consistent with a contusion from brushing against the wall. Although there is no obvious bruising on the skin today this might develop over the next few days. A contusion is a deep bruise. This is a result of an injury that causes bleeding under the skin. Symptoms of bruising include pain, swelling, and discolored skin. This skin may turn blue, purple, or yellow. To manage stiffness, pain, and swelling use RICE: rest, ice. DO NOT PUT ICE directly onto skin, this can cause a burn. Instead, place ice in a plastic bag, and place a towel between the skin and the bag. Leave on for 20 minutes, 2-3 x a day. Take [id number] and/ or prescription medication as advised. return right away if: pain worsens, numbness, or area turns pale or cold. Prescriptions: No Action (DME) FOAM DRESSING See Rx Instructions .Route .MEDSUPPLY Qty: 20 3RF Rx Instructions: As directed celecoxib 200 mg capsule 200 mg PO BID Qty: 60 3RF sennosides [senna] 8.6 mg Tablet 8.6 mg PO BEDTIME PRN (Reason: Constipation) acetaminophen 325 mg tablet 650 mg PO Q4H PRN (Reason: Pain) cetirizine 10 mg tablet 10 mg PO DAILY Rx Instructions: HOLD WHEN HYDROXYZINE IN USE; IN USE DURING DECEMBER-JUNE pravastatin 40 mg tablet 40 mg PO BEDTIME citalopram 10 mg tablet 10 mg PO DAILY magnesium hydroxide [Milk of Magnesia] 400 mg/5 mL suspension 30 ml PO BEDTIME PRN (Reason: Constipation) amlodipine 10 mg tablet 10 mg PO DAILY benzonatate 100 mg Capsule 100 mg PO TID PRN (Reason: Cough) bisacodyl 10 mg suppository 10 mg VT DAILY PRN (Reason: Constipation) Rx Instructions: After 8 hrs of MOM with no BM calcium carbonate [Antacid (calcium carbonate)] 200 mg calcium (500 mg) tablet,chewable 500 mg PO TID Ear Drops (carbamide peroxide) 6.5 % drops See Rx Instructions .ROUTE .COMPLEX Rx Instructions: 4 drps into both ears twice daily for 5 days monthly docusate sodium 100 mg capsule 100 mg PO BID pseudoephedrine HCl [Suphedrin] 30 mg Tablet 30 mg PO Q6H PRN (Reason: Allergy Symptoms) Rx Instructions: DNExceed 4 doses/24h risperidone 1 mg tablet 1 mg PO BID fluoride (sodium) 1.1 % gel 1 appl PO BEDTIME Rx Instructions: brush along gum line tolnaftate [Tinactin] 1 % Aerosol Powder 2 spray TOPICAL BID PRN (Reason: groin rash) risperidone 0.5 mg tablet 0.5 mg PO DAILY PRN (Reason: Anxiety) Rx Instructions: Take 1 hour prior to any appointments. hydroxyzine pamoate 25 mg capsule 25 mg PO DAILY PRN (Reason: Anxiety) Rx Instructions: HOLD CETIRIZINE WHEN IN USE Saline Nasal 0.65 % Aerosol,[place] 1 spray INTRANASAL BID PRN (Reason: dryness) bacitracin zinc-polymyxin B [Polysporin] 500-10,000 unit/gram Ointment 1 appl TOPICAL Q12H PRN (Reason: skin breakdown) multivitamin with folic acid [Thera] 400 mcg tablet 1 tab PO DAILY azithromycin 500 mg tablet 500 mg PO DAILY 7 Days Qty: 7 0RF cefuroxime axetil 500 mg tablet 500 mg PO BID Qty: 14 0RF guaifenesin [Mucinex] 600 mg tablet extended release 12hr 600 mg PO Q12H Qty: 14 0RF Referrals: [facility] [Provider Group] - 1 week Referral Note: as needed for concerns Interventions: ED Discharge Assessment Last Done: 03/09/25 13:12 Discharge Date/Time: 03/09/25 13:13 Print Language: Estonian
--- NOTE | 2025-03-09 11:22 | PC.NURSE ---
unable to get BP and O2 in triage d/t pt unable to tolerate
--- OUTSIDE RECORDS SUMMARY | 2025-03-09 11:35 | XMS_ITS | Patient Health Record ---
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 Name Role Phone Schuyler Mathews MD Primary Care Provider Africa Butts Unavailable [phone] Allergies Allergen (clinical drug ingredient) Drug/Non Drug Allergy documented on EMR Reaction Allergy Type Onset Date Status pseudoephedrine Suphedrin Nasal Congestion Drug Allergy Active cetirizine Cetirizine Hold when Hydrozine Roxana in use r/t Drug Interaction Drug Allergy Active hydroxyzine Hydroxyzine Hold Cetirizine when in use r/t Drug Interaction Drug Allergy Active Reason For Referral No Information Medications Medication SIG (Take, Route, Fr equency, Duration) Notes Start Date End Date Status Thera Active Sodium Fluoride Acti ve Senna Active risperiDONE 0.5 MG 1 tablet Orally Once a day Active hydrOXYzine HCl Acti ve Ear Drops Active Tinactin Active Pravastatin Sodium A ctive Suphedrin Active Polysporin Active amLODIPine Besylate Active Cetirizine HCl Activ e Docusate Sodium Acti ve Benzonatate Active Acetaminophen Active Bisacodyl Active Antacid Active Milk of Magnesia Act mariaelena risperiDONE 1 MG 1 tablet Orally Once a day Active GNP Saline Nasal Mist Active Citalopram Hydrobromide Active Social History Tobacco Use: Social History Observation Description Date Details (start date - stop date) Never Smoker NA - NA Tobacco Control (Standard) Question Answer Notes Tobacco use: Nonsmoker Additional Findings: Tobacco non-user Current no nsmoker AUDIT-C (Standard) Question Answer Notes Did you have a drink containing alcohol in the p ast year? No Points 0 Interpretation Negative Vital Signs Height 5 ft 4 in in 01/02/2025 Weight 137 lbs 01/02/2025 BMI 23.51 kg/m2 01/02/2025 Procedures Procedure Date Ordered Date Performed Result Body Sit e [id number] NAIL, 6 OR MORE 01/02/2025 N/A Encounters Encounter Location Date Provider Diagnosis [address] [address] 08/14/2024 Africa Marcial Onychomycosis B35.1 ; Pain in right toe(s) M79.674 and Pain in left toe(s) M79.[address] [address] 01/02/2025 Africa Marcial Pain in right toe(s) M79.674 ; Onychomycosis B35.1 and Pain in left toe(s) M79.[address] [address] 07/18/2024 Africa Marcial Assessments Encounter Date Diagnosis (ICD Code) Assessment Notes Treatment Notes Treatment Clinical Notes Section Notes 08/14/2024 Pain in right toe(s) (ICD-10 - M79.674) 08/14/2024 Onychomycosis (ICD-10 - B35.1) 01/02/2025 Pain in right toe(s) (ICD-10 - M79.674) 01/02/2025 Onychomycosis (ICD-10 - B35.1) 08/14/2024 Pain in left toe(s) (ICD-10 - M79.675) 01/02/2025 Pain in left toe(s) (ICD-10 - M79.675) Plan Of Treatment Pending Test Test Name Order Date [id number] NAIL, 6 OR MORE 01/02/2025 Next Appt Details Provider Name:Africa Love martin, 04/09/2025 10:00:00 AM, [address] [place] [address], [phone], Insurance Providers Payer Name Payer Address Payer Phone Subscriber Number Group Number Insured Name Patient Relationship to Insured Coverage Start Date Coverage End Date Medicare National Govt Svcs Inc [address] [place] [address] [id number] Celsa King Self - patient is the insured 7 Medical (General) History Medical History History ICD Code Anxiety hip pain Cataracts Epilepsy High Blood Pressure Surgical History Surgery Date(Month/Year) left hip 02/28/2023 herniaplasty
--- NOTE | 2025-03-09 12:52 | PC.NURSE ---
Informed provider pt. was refusing xray.
[2025-03-09 13:12] VITALS: BP 125/77; PULSE 82; RESP 16; TEMP 37; O2SAT 96
== END 2025-03-09 13:13 | disposition home or self-care (01) ==
PROVIDERS: Emergency Provider Emergency Medicine; PCP Internal Medicine
DX: S70.02XA Contusion of left hip, initial encounter (principal); W22.09XA Striking against other stationary object, initial encounter; Y93.89 Activity, other specified; Y92.192 Bathroom in other specified residential institution as the place of occurrence of the external cause; Y99.9 Unspecified external cause status
CPT/HCPCS: 99283; 99284

== ENCOUNTER 2025-05-06 09:30 | Emergency (ER) | payer MEDICARE, MEDICAID, SELFPAY ==
--- NOTE | ~2025-05-06 | CT_ITS ---
EXAMINATION: CT HIP WITHOUT CONTRAST, LEFT CLINICAL INFORMATION: Severe pain. Unable to wear weight. COMPARISON: Correlated to x-ray dated May 06, 2025 demonstrated total left hip arthroplasty. TECHNIQUE: Multidetector volumetric imaging was obtained through the left hip without contrast material. Multiplanar reformatted images were submitted in coronal and sagittal planes. This CT examination was performed using dose optimization techniques as appropriate, variously including the following: *Automated exposure control *Adjustment of mA and/or kV according to patient size (this includes techniques or standardized protocols for targeted exams where dose is matched to indication/reason for exam; i.e. extremities or head) *Use of iterative reconstruction technique. DLP: 191 mGy centimeter. FINDINGS: Limited by patient's motion artifact. Unable to fully evaluated on the tail of the osseous structures. Total metallic prosthesis well-seated in the acetabular and femoral components without gross acute cortical disruption or gross malalignment. CT/CT hip LT wo IV con IMPRESSION: Limited examination demonstrated total left hip arthroplasty prosthesis without gross acute fracture or dislocation. Electronically signed by: Julian Sharp MD 05/06/2025 11:22 AM EDT
--- NOTE | ~2025-05-06 | XR_ITS ---
EXAMINATION: XR HIP 1 VIEW LEFT WITH PELVIS HISTORY: pain, injury COMPARISON: Comparison is made with the prior examination dated 06/01/2023. FINDINGS: A single AP view of the pelvis and 2 views of the left hip are submitted. The patient is again noted to be status post left total hip arthroplasty. The acetabular cup appears rotated on the current examination, which may be due to projection. No abnormal lucency is seen surrounding the prosthesis. There is no fracture or dislocation. The soft tissues are unremarkable. XR/XR hip LT w PEL1V IMPRESSION: Status post left total hip arthroplasty. The acetabular cup appears rotated when compared to the prior examination which may be projectional in nature. Electronically signed by: Monty Mccarthy MD 05/06/2025 10:03 AM EDT
--- NOTE | ~2025-05-06 | XR_ITS ---
EXAMINATION: XR LUMBOSACRAL SPINE CLINICAL INFORMATION: back pain COMPARISON: None available. TECHNIQUE: AP and lateral views. FINDINGS: Multilevel marginal osteophyte formation and endplate sclerosis throughout the axial skeleton. Facet joint hypertrophy at L5-S1. Mild superior endplate compression deformity representing 10% volume loss throughout the axial skeleton. No acute cortical disruption. No gross malalignment. Metallic prosthesis, left coxofemoral joint no fully included in the [id number]. No lytic or blastic lesions. XR/XR lumbar spine 2-3V IMPRESSION: Multilevel thoracolumbar spondylosis without acute fracture or trauma-related listhesis. Electronically signed by: Julian Sharp MD 05/06/2025 11:32 AM EDT
[2025-05-06 09:42] VITALS: PULSE 99; RESP 18; TEMP 36.6; O2SAT 96; BMI 23.7
--- NOTE | 2025-05-06 09:43 | ED_ITS ---
HPI - General Adult General Chief complaint: Extremity Injury, Lower Stated complaint: Hip pain Time Seen by Provider: 05/06/25 10:16 Source: patient and old records reviewed Mode of arrival: other Limitations: other History of Present Illness ED Provider: MADI GARCÍA narrative: 70 yo male with PMH Of HTN, arthritis, anxiety, HLD, autism, cognitive impairment here with 3 days of L leg pain and limping but no trauma, falls, fevers, rash. Staff notes he needs more help walking, was sent in for xrays of L hip. s/p L total HR in 2022. Brought in my skilled nursing staff. Had hip surgery here 02/2023 and intermittent pain since then seen in office for pain and diff ambulating june 2024 - at that time work up was reassuring and DC home MD complaint: left leg limping Onset (ago): day(s) (3) Location: left Radiation: non-radiation Severity: mild Relieving factors: none Exacerbating factors: movement Associated symptoms: denies other symptoms Treatments prior to arrival: none Related Data Home Medications ?Medication ?Instructions ?Recorded ?Confirmed acetaminophen 325 mg tablet 650 mg PO Q4H PRN Pain 01/1504/02/24 amlodipine 10 mg tablet 10 mg PO DAILY 02/26/2306/18 bacitracin zinc 500 unit-polymyxin 1 appl topical Q12H PRN skin 02/26/23 04/02/24 B 10,000 unit/gram topical breakdown ointment (Polysporin) benzonatate 100 mg capsule 100 mg PO TID PRN Cough 01/1504/02/24 bisacodyl 10 mg rectal suppository 10 mg [place] DAILY PRN Constipation 02/26/23 04/02/24 calcium carbonate (Antacid 500 mg PO TID 02/26/2306/18 (calcium carbonate)) carbamide peroxide 6.5 % ear drops See Rx Instructions .Route .COMPLEX 02/26/23 04/02/24 (Ear Drops (carbamide peroxide)) cetirizine 10 mg tablet 10 mg PO DAILY 02/26/2306/18 citalopram 10 mg tablet 10 mg PO DAILY 02/26/2306/18 docusate sodium 100 mg capsule 100 mg PO BID 02/26/23 04/02/24 fluoride (sodium) 1.1 % dental gel 1 appl PO BEDTIME 0 02/26/23 04/02/24 hydroxyzine pamoate 25 mg capsule 25 mg PO DAILY PRN A nxiety 02/26/23 04/02/24 magnesium hydroxide 400 mg/5 mL 30 ml PO BEDTIME PRN C onstipation 02/26/23 04/02/24 oral suspension (Milk of Magnesia) multivitamin with folic acid 400 1 tab PO DAILY 04/02/24 mcg tablet (Thera) pravastatin 40 mg tablet 40 mg PO BEDTIME 02/26/23 pseudoephedrine HCl 30 mg tablet 30 mg PO Q6H PRN Marco rgy Symptoms 02/26/23 04/02/24 (Suphedrin) risperidone 0.5 mg tablet 0.5 mg PO DAILY PRN Anxiety 02/26/23 04/02/24 risperidone 1 mg tablet 1 mg PO BID 02/26/23 4 sennosides 8.6 mg tablet (senna) 8.6 mg PO BEDTIME PRN Constipation 02/26/23 04/02/24 sodium chloride 0.65 % nasal spray 1 spray intranasal BID PRN dryness 02/26/23 04/02/24 aerosol (Saline Nasal) tolnaftate 1 % topical spray 2 spray topical BID PRN g roin rash 02/26/23 04/02/24 powder (Tinactin) Previous Rx's ?Medication ?Instructions ?Recorded FOAM DRESSING #20 ea 04/14/23 azithromycin 500 mg tablet 500 mg PO DAILY 7 days #7 t abs 04/04/24 cefuroxime axetil 500 mg tablet 500 mg PO BID #14 tabs 04/04/24 guaifenesin 600 mg tablet, 600 mg PO Q12H #14 tabs 08/18 extended release 12 hr (Mucinex) celecoxib 200 mg capsule 200 mg PO BID for pain #60 c aps 03/27/25 Allergies Allergy/AdvReac Type Severity Reaction Status Date / Time Benzodiazepines Allergy Unknown UNKNOWN Verified 05/06/25 09:43 (BENZODIAZEPINES) Cephalosporins Allergy Unknown UNKNOWN Verified 05/06/25 09:43 (CEPHALOSPORINS) Penicillins (PENICILLINS) Allergy Unknown UNKNOWN Verified 05/06/25 09:43 Review of Systems Review of Systems: ROS unable to be obtained due to cognitive impairment [facility] Past Medical History Attestation statement: The following information was validated with the patient. Source: old records reviewed Medical History Microcephaly Microencephaly Vitamin D deficiency Cataract Impulse control disease OCD (obsessive compulsive disorder) Autistic disorder Hyperlipemia Talipes equinus Constipation Hypertension Epilepsy Social History Social History Household Members: Other Household Members Other:: skilled nursing Housing: Other Housing Other:: group tayler Do you presently have visiting nurse or other home services: Yes (skilled nursing nurse and staff) Unable to assess alcohol history related to: Unable to respond Alcohol intake: never Comment: group staff in room Patient Tobacco Use Status: Tobacco use Unknown Substance Use Type: Unknown Advance Directives: Yes Advance Directives Information Provided: Yes Advance Directives on File: No Do you have a plan to hurt others: No Plan service: No Current occupational status: disabled Physical Exam ED Vital Signs: Vital Signs - 24 hr 05/06/25 09:42 Temperature 97.9 F Pulse Rate 99 Respiratory Rate 18 Pulse Oximetry 96 Oxygen Delivery Method Room Air BMI result Body Mass Index 23.7 Appearance: Alert. at baseline, nonverbal No acute distress. Eyes: Pupils equal, round and reactive to light. ENT: Pharynx normal. Neck: Normal inspection. Neck supple. CVS: Normal heart rate and rhythm. Pulses normal. Respiratory: No respiratory distress. Breath sounds normal. Abdomen: Soft and nontender. Skin: Skin warm and dry. Normal skin color. Normal skin turgor. Extremities: No lower extremity edema. L leg pulses intact, no rash noted on leg, able to ROM test the L hip without pain but I did axial load and he appeared to become agitated. Leg lengths are similar, he withdraws from pain in left leg. No back pain, no mass. Neuro: at baseline No motor deficit. No sensory deficit. Course Course Course Narrative: Rapid medical examination performed in triage by Jeanie Parker PA-C. Patient is a 70 year old assigned male at presenting to the emergency department with left hip pain. Individual here with the patient states that the patient has been having difficulty with his left hip and is here to get an x-ray done. Detailed physical exam and review of systems are deferred to the outreach clinician. Imaging ordered. Patient placed back in the waiting room pending room availability and results. Medical Decision Making Medical Decision Making MDM Narrative: 70 yo male with PMH Of HTN, arthritis, anxiety, HLD, autism, cognitive impairment here with c/o 3 days of LLE pain and unable to move leg well when walking on exam no signs of infection, NV Intact, he is not able to provide much history will start with CT scan of L hip and lumbar spine in case of referred pain. If work up negative refer to orthopedics Differential Diagnosis Differential Diagnoses: The differential diagnosis associated with the presentation includes contusion, arthritis, overuse, fracture, effusion Admission/Observation Consideration of admission/observation: Escalation of care including admission/observation considered negative workup stable for DC Independent Interpretation I performed an independent interpretation of an: Plain X-Ray (no acute pathology but has diffuse compression fractures) and CT Scan (normal appearing) Radiology Impression Discussion of test interpretation with radiology: I have reviewed the radiologist's reading. Independent Historian Clinical information obtained from an independent historian. History obtained from or confirmed by: Other External Record Review External record reviewed: Inpatient record and Outpatient record Prescription Management I considered prescription management with: Pain Medication and Other Discharge Plan Discharge Clinical Impression: Acute hip pain Qualifiers: Laterality: left Qualified Code(s): M25.552 - Pain in left hip Patient Disposition: Home, Self-Care Instructions: Arthralgia (ED), Hip Pain (ED) Additional Instructions: CT scan shows nothing acute today in exam xray shows loss of height of the bones throughout his middle and lower spine I would adivse you follow up with his orthopedics doctor here at [facility] since his procedure he has had on and off pain while he is on the celebrex make sure you are scheduling 650mg of tylenol every 6 hours for pain return for any worsening symptoms or concerns. Prescriptions: No Action (DME) FOAM DRESSING See Rx Instructions .Route .MEDSUPPLY Qty: 20 3RF Rx Instructions: As directed celecoxib 200 mg capsule 200 mg PO BID Qty: 60 3RF sennosides [senna] 8.6 mg Tablet 8.6 mg PO BEDTIME PRN (Reason: Constipation) acetaminophen 325 mg tablet 650 mg PO Q4H PRN (Reason: Pain) cetirizine 10 mg tablet 10 mg PO DAILY Rx Instructions: HOLD WHEN HYDROXYZINE IN USE; IN USE DURING DECEMBER-JUNE pravastatin 40 mg tablet 40 mg PO BEDTIME citalopram 10 mg tablet 10 mg PO DAILY magnesium hydroxide [Milk of Magnesia] 400 mg/5 mL suspension 30 ml PO BEDTIME PRN (Reason: Constipation) amlodipine 10 mg tablet 10 mg PO DAILY benzonatate 100 mg Capsule 100 mg PO TID PRN (Reason: Cough) bisacodyl 10 mg suppository 10 mg [place] DAILY PRN (Reason: Constipation) Rx Instructions: After 8 hrs of MOM with no BM calcium carbonate [Antacid (calcium carbonate)] 200 mg calcium (500 mg) tablet,chewable 500 mg PO TID Ear Drops (carbamide peroxide) 6.5 % drops See Rx Instructions .ROUTE .COMPLEX Rx Instructions: 4 drps into both ears twice daily for 5 days monthly docusate sodium 100 mg capsule 100 mg PO BID pseudoephedrine HCl [Suphedrin] 30 mg Tablet 30 mg PO Q6H PRN (Reason: Allergy Symptoms) Rx Instructions: DNExceed 4 doses/24h risperidone 1 mg tablet 1 mg PO BID fluoride (sodium) 1.1 % gel 1 appl PO BEDTIME Rx Instructions: brush along gum line tolnaftate [Tinactin] 1 % Aerosol Powder 2 spray TOPICAL BID PRN (Reason: groin rash) risperidone 0.5 mg tablet 0.5 mg PO DAILY PRN (Reason: Anxiety) Rx Instructions: Take 1 hour prior to any appointments. hydroxyzine pamoate 25 mg capsule 25 mg PO DAILY PRN (Reason: Anxiety) Rx Instructions: HOLD CETIRIZINE WHEN IN USE Saline Nasal 0.65 % Aerosol,[place] 1 spray INTRANASAL BID PRN (Reason: dryness) bacitracin zinc-polymyxin B [Polysporin] 500-10,000 unit/gram Ointment 1 appl TOPICAL Q12H PRN (Reason: skin breakdown) multivitamin with folic acid [Thera] 400 mcg tablet 1 tab PO DAILY azithromycin 500 mg tablet 500 mg PO DAILY 7 Days Qty: 7 0RF cefuroxime axetil 500 mg tablet 500 mg PO BID Qty: 14 0RF guaifenesin [Mucinex] 600 mg tablet extended release 12hr 600 mg PO Q12H Qty: 14 0RF Referrals: [facility] [Provider Group] Referral Note: call to schedule Print Language: Ecuadorean
--- OUTSIDE RECORDS SUMMARY | 2025-05-06 11:27 | XMS_ITS | Encounter Summary ---
Author Organization [facility] Address [address] [place] [phone] Phone Care Team Providers Care Stack Clerk Name Role Phone Pcp, Unknown Primary Care Provider Unavailabl e Encounter Details Date Type Department Care Team (Late st Contact Info) Description 09/15/2021 Procedure Pass [facility] Endoscopy Admitting Dept Virtual Department [address] [place] [address] Social History Tobacco Use Types Packs/Day Years Used Date Smoking Tobacco: Never Smokeless Tobacco: Never Alcohol Use Standard Drinks/Week Comments Never 0 (1 standard drink = 0.6 oz pur e alcohol) Sex and Gender Information Value Date Recorded Sex Assigned at Not on file Legal Sex Male 3:02 PM EDT Gender Identity Not on file Sexual Orientation Not on file documented as of this encounter Plan of Treatment Not on file documented as of this encounter Visit Diagnoses Not on filedocumented in this encounter Care Teams Stack Clerk Relationship Specialty Start Date End Date Pcp, Unknown PCP - General 07/01/21 documented as of this encounter Additional Source Comments The information contained in this document represents components of the legal health record. It is not the complete legal health record.[facility]
--- OUTSIDE RECORDS SUMMARY | 2025-05-06 11:27 | XMS_ITS | Patient Health Record ---
Author Organization [facility] [place] Address [address] [place] [address] Care Team Providers Care Dough Mixer Helper Name Role Phone Schuyler Mathews MD Primary Care Provider Africa Butts Unavailable [phone] Allergies Allergen (clinical drug ingredient) Drug/Non Drug [...] Duration) Notes Start Date End Date Status Antacid Active Milk of Magnesia Act mariaelena Acetaminophen Active Bisacodyl Active Ear Drops Active Tinactin Active risperiDONE 0.5 MG 1 tablet Orally Once a day Active hydrOXYzine HCl Acti ve Citalopram Hydrobromide Active risperiDONE 1 MG 1 tablet Orally Once a day Active GNP Saline Nasal Mist Active Docusate Sodium Acti ve Benzonatate Active amLODIPine Besylate Active Cetirizine HCl Activ e Polysporin Active Pravastatin Sodium A ctive Suphedrin Active Sodium Fluoride Acti ve Senna Active Thera Active Immunizations Vaccine Route Administration Date Status Comme nts Influenza Unknown 06/25/2024 Administered Social History Tobacco Use: Social History Observation [...] Signs Height 5 ft 4 in in 04/09/2025 Weight 137 lbs 04/09/2025 BMI 23.51 kg/m2 04/09/2025 Procedures Procedure Date Ordered Date Performed Result Body Sit e [id number] NAIL, 6 OR MORE 01/02/2025 N/A [id number] NAIL, 6 OR MORE 04/09/2025 N/A Encounters Encounter Location Date Provider Diagnosis [address] [address] 08/14/2024 Africa Marcial Onychomycosis B35.1 ; Pain in right toe(s) M79.674 and Pain in left toe(s) M79.[address] [address] 01/02/2025 Africa Marcial Pain in right toe(s) M79.674 ; Onychomycosis B35.1 and Pain in left toe(s) M79.[address] [address] 04/09/2025 Africa Marcial Pain in right toe(s) M79.674 ; Onychomycosis B35.1 and Pain in left toe(s) M79.[address] [address] 07/18/2024 Africa Marcial Assessments Encounter Date Diagnosis (ICD Code) Assessment Notes Treatment Notes Treatment Clinical Notes Section Notes 08/14/2024 Pain in right toe(s) (ICD-10 - M79.674) 08/14/2024 Onychomycosis (ICD-10 - B35.1) 01/02/2025 Pain in right toe(s) (ICD-10 - M79.674) 04/09/2025 Pain in right toe(s) (ICD-10 - M79.674) 04/09/2025 Onychomycosis (ICD-10 - B35.1) 08/14/2024 Pain in left toe(s) (ICD-10 - M79.675) 01/02/2025 Onychomycosis (ICD-10 - B35.1) 04/09/2025 Pain in left toe(s) (ICD-10 - M79.675) 01/02/2025 Pain in left toe(s) (ICD-10 - M79.675) Plan Of Treatment Pending Test Test Name Order Date [id number] NAIL, 6 OR MORE 01/02/2025 [id number] NAIL, 6 OR MORE 04/09/2025 Next Appt Details Provider Name:Africa Love martin, 08/11/2025 11:00:00 AM, [address] [place] [address], [phone], Insurance Providers Payer Name Payer Address Payer Phone Subscriber Number Group Number Insured Name Patient Relationship to Insured Coverage Start Date Coverage End Date Medicare National Govt Svcs Inc [address] [place] [address] [id number] King Steen Self - patient is the insured 7 Medical (General) History Medical History History ICD Code Anxiety hip pain Cataracts Epilepsy High Blood Pressure Surgical History Surgery Date(Month/Year) left hip 02/28/2023 herniaplasty
[2025-05-06 12:02] VITALS: BP 00/00; PULSE 99; RESP 18; TEMP 36.6; O2SAT 96
== END 2025-05-06 12:19 | disposition home or self-care (01) ==
PROVIDERS: Emergency Provider Emergency Medicine; PCP Internal Medicine
DX: M25.552 Pain in left hip (principal); I10 Essential (primary) hypertension; E78.5 Hyperlipidemia, unspecified; E55.9 Vitamin D deficiency, unspecified; Z79.02 Long term (current) use of antithrombotics/antiplatelets; Z79.899 Other long term (current) drug therapy
CPT/HCPCS: 72100; 73502; 73700; 99283; 99284

== ENCOUNTER → 2025-05-06 09:44 | Outpatient (BNV) | payer MEDICARE, MEDICAID, SELFPAY | PROVIDERS: Emergency Provider Emergency Medicine; PCP Internal Medicine; Visit Provider Radiology Diagnostic Radiology | DX: M25.552 Pain in left hip (principal) | CPT/HCPCS: 73502 ==